=== PATIENT | female | born 1940 | race Caucasian/White ===

== ENCOUNTER 2022-09-19 20:16 | Emergency (ER) | payer MEDICARE, SELFPAY ==
[2022-09-19] VITALS (13 sets, daily range): BP systolic 124–141; BP diastolic 60–108; PULSE 53–70; RESP 12–25; TEMP 36.8; O2SAT 95–98; BMI 27.4
--- NOTE | 2022-09-19 20:20 | ED_ITS ---
HPI - General Adult General Chief complaint: Weakness Stated complaint: WEAKNESS Time Seen by Provider: 09/19/22 20:20 Source: patient and caregiver Mode of arrival: ambulance Limitations: altered mental status Limitations comment: hX OF DEMENTIA History of Present Illness HPI narrative: patient NIA pleasant. Not able to provide much history. Her best description of why she came in via [facility] is because she feels rotten . Denies chest pain or abdominal pain. No fever or headache. Doesn't feel short of breath. States she is ambulatory at the [facility]. State the sensation of feeling rotten started today Related Data Home Medications Medication Instructions Recorded Confirmed cyanocobalamin (vitamin B-12) 1,000 mcg PO DAILY 09/19/22 09/19/22 1,000 mcg capsule donepezil 10 mg tablet 10 mg PO BID 09/19/22 09/19/22 ferrous sulfate 325 mg (65 mg 325 mg PO DAILY 09/19/22 09/19/22 iron) tablet hyoscyamine sulfate 0.125 mg 0.125 mg PO Q4H PRN secretions 09/19/22 09/19/22 tablet (Levsin) ibuprofen 600 mg tablet 600 mg PO BID PRN pain 09/19/22 09/19/22 levetiracetam 500 mg tablet 500 mg PO DAILY 09/19/22 09/19/22 (Keppra) memantine 5 mg tablet 5 mg PO BID 09/19/22 09/19/22 quetiapine 25 mg tablet (Seroquel) 25 mg PO DAILY 09/19/22 09/19/22 sertraline 100 mg tablet (Zoloft) 100 mg PO DAILY 09/19/22 09/19/22 simvastatin 20 mg tablet 20 mg PO DAILY 09/19/22 09/19/22 Allergies Allergy/AdvReac Type Severity Reaction Status Date / Time No Known Drug Allergies Allergy Verified 09/19/22 20:12 Review of Systems ROS Status of ROS 10 or more systems reviewed and unremarkable except as noted in history and below Exam Constitutional Vital Signs - 24 hr 09/19/22 20:12 Temperature 98.2 F Pulse Rate [Monitor] 65 Respiratory Rate 18 Blood Pressure [Right Arm] 140/66 H Pulse Oximetry 97 Oxygen Delivery Method Room Air Common normals: no apparent distress, average body habitus, oriented x3, alert and well nourished [facility] Common normals: normocephalic, head/scalp atraumatic and hearing grossly normal bilaterally Eye Common normals: EOMs intact bilaterally and conjunctivae normal Respiratory Common normals: normal respiratory effort, no retractions and no use of accessory muscles Cardio Common normals: no JVD, regular rate, regular rhythm, S1 normal heart sound and S2 normal heart sound GI Common normals: Normal to inspection, nondistended, normoactive bowel sounds present and non-tender Extremity Common normals: normal to inspection Other: trace edema bilat lower extremities Neuro Common normals: oriented x3, moves all extremities and no focal motor deficits Psych Appearance: grossly normal Course Vital Signs Vital signs: Vital Signs Temperature 98.2 F 09/19/22 20:12 Pulse Rate 65 09/19/22 20:12 Respiratory Rate 18 09/19/22 20:12 Blood Pressure 140/66 H 09/19/22 20:12 Pulse Oximetry 97 09/19/22 20:12 Oxygen Delivery Method Room Air 09/19/22 20:12 Temperature 98.2 F 09/19/22 20:12 Pulse Rate 65 09/19/22 20:12 Respiratory Rate 18 09/19/22 20:12 Blood Pressure 140/66 H 09/19/22 20:12 Pulse Oximetry 97 09/19/22 20:12 Oxygen Delivery Method Room Air 09/19/22 20:12 Medical Decision Making MDM Narrative Medical decision making narrative: patient presents [facility] complaining of feeling rotten. No specifics. Exam neg. workup including Cxray, cardiac enzymes, UA and basic labs unremarkable except mild elevated BUN/creat. Patient hydrated in the department with NS discharged back to [facility] with working diagnosis of dehydration Discharge Plan Discharge Chief Complaint: Weakness Clinical Impression: Acute dehydration Patient Disposition: Home, Self-Care Prescriptions / Home Meds: No Action donepezil 10 mg tablet 10 mg PO BID ferrous sulfate 325 mg (65 mg iron) tablet 325 mg PO DAILY ibuprofen 600 mg tablet 600 mg PO BID PRN (Reason: pain) levetiracetam [Keppra] 500 mg tablet 500 mg PO DAILY memantine 5 mg tablet 5 mg PO BID quetiapine [Seroquel] 25 mg tablet 25 mg PO DAILY sertraline [Zoloft] 100 mg tablet 100 mg PO DAILY simvastatin 20 mg tablet 20 mg PO DAILY cyanocobalamin (vitamin B-12) 1,000 mcg capsule 1,000 mcg PO DAILY hyoscyamine sulfate [Levsin] 0.125 mg tablet 0.125 mg PO Q4H PRN (Reason: secretions) Instructions: Dehydration (ED) Stand Alone Forms: Portal Instructions Referrals: AYE RODRIGUEZ [Primary Care Provider] - 1 week Follow Up Appointments: follow up with the family doctor
--- NOTE | 2022-09-19 20:25 | ECG_ITS ---
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
[2022-09-19 20:43] LABS: Basophils Absolute Auto 0.1 10^3/uL (0.0-0.1); Eosinophils Absolute Auto 0.4 10^3/uL (0.0-0.7); Eosinophils Percent Auto 4.3 % (0.9-7.0); Hematocrit 34.9 % (36.0-48.0); Hemoglobin 11.1 g/dL (12.0-16.0); Immature Granulocytes Abs Auto 0.04 10^3/uL (0.00-0.03); Immature Granulocytes Pct Auto 0.4 % (0.0-0.5); Lymphocytes Absolute Auto 3.6 10^3/uL (1.2-3.8); Lymphocytes Percent Auto 37.6 % (20.5-60.0); Mean Corpuscular HGB Conc 31.8 g/dL (29.9-35.2); Mean Corpuscular Hemoglobin 31.2 pg (26.7-34.0); Mean Platelet Volume 9.2 fL (9.5-13.5); Monocytes Absolute Auto 0.8 10^3/uL (0.3-0.8); Monocytes Percent Auto 8.4 % (1.7-12.0); Neutrophils Absolute Auto 4.6 10^3/uL (1.4-6.5); Neutrophils Percent Auto 48.3 % (43.0-75.0); Platelet Count 256 10^3/uL (150-450); Red Blood Count 3.56 10^6/uL (4.20-5.40); Red Cell Distribution Width 12.7 % (11.0-15.0); White Blood Count 9.6 10^3/uL (4.0-11.0)
--- NOTE | 2022-09-19 20:45 | XR_ITS ---
[address] [address] Patient Name: JARROD CORTEZ MRN: [id number] date: 1940 Sex: F Assigned Patient Location: ER Current Patient Location: ER Accession/Order Number: [id number] Exam Date: 09/19/2022 20:45 Report Date: 09/19/2022 21:18 At the request of: BERT MUJICA Procedure: XR chest 1V EXAMINATION: XR chest 1V HISTORY: Fatigue COMPARISON: Portable chest 07/18/2022 TECHNIQUE: Portable chest FINDINGS: The lung parenchyma is free of consolidation or infiltrate. No pneumothorax or pleural effusion. The cardiac, mediastinal and hilar contours are normal. The visualized osseous structures exhibit no gross abnormality. IMPRESSION: No acute cardiopulmonary abnormality. Electronically authenticated by: RANDALL CHANEY Date: 09/19/2022 21:18
[2022-09-19 21:00] LABS: Anion Gap 10.9; BUN Creatinine Ratio 20.8; Calcium 8.9 mg/dL (8.5-10.1); Carbon Dioxide 27.7 mmol/L (21.0-32.0); Chloride 104 mmol/L (98-107); Estimated GFR (African America 50 (>=60); Estimated GFR (Non-African Ame 41 (>=60); Glucose 101 mg/dL (74-106); Lactate/Lactic Acid 0.6 mmol/L (0.4-2.0); Potassium 4.6 mmol/L (3.5-5.1); Sodium 138 mmol/L (136-145)
[2022-09-19] MEDS: 0.9 % SODIUM CHLORIDE 1,000 ML 999 ML IV (21:14)
[2022-09-19 22:06] LABS: Bilirubin Urine NEGATIVE (NEGATIVE); Blood Urine NEGATIVE (NEGATIVE); Clarity Urine CLEAR (CLEAR); Color Urine YELLOW (YELLOW); Glucose Urine UA NEGATIVE (NEGATIVE); Ketones Urine TRACE mg/dL (NEGATIVE); Leukocyte Esterase Urine SMALL (NEGATIVE); Nitrite Urine NEGATIVE (NEGATIVE); Protein Urine NEGATIVE (NEG/TRACE); Specific Gravity Urine 1.025 (1.005-1.025); Urine Microscopic Indicated YES; Urobilinogen Urine 0.2 EU/dL (0.2-1.0); pH Urine 5.5 (5.0-9.0)
[2022-09-19 22:12] LABS: Bacteria Urine LARGE #/HPF (NONE SEEN); Mucus Urine NONE SEEN (NONE SEEN); RBC Urine 0-2 #/HPF (0-2)
[2022-09-19 22:13] LABS: Cast Seen? NONE SEEN #/LPF (NONE SEEN); Crystals Seen? None Seen #/HPF (None Seen); Squamous Epithelial Cell Urine MODERATE #/LPF (NONE/RARE); Urine Culture Indicated YES
[2022-09-19 22:46] LABS: Magnesium 2.3 mg/dL (1.8-2.4)
== END 2022-09-19 23:31 | disposition home or self-care (01) ==
PROVIDERS: Emergency Provider Internal Medicine; PCP Family Medicine
DX: Z79.899 Other long term (current) drug therapy (principal); E86.0 Dehydration; F03.90 Unspecified dementia, unspecified severity, without behavioral disturbance, psychotic disturbance, mood disturbance, and anxiety
CPT/HCPCS: 36415; 71045; 80048; 81003; 81015; 83605; 83735; 84484; 85025; 87086; 87150; 87186; 93005; 99285

== ENCOUNTER 2022-12-12 19:19 | Emergency (ER) | payer MEDICARE, SELFPAY ==
[2022-12-12] VITALS (18 sets, daily range): BP systolic 102–144; BP diastolic 37–86; PULSE 55–158; RESP 12–26; TEMP 36.4; O2SAT 96–100; BMI 26.5
--- NOTE | 2022-12-12 19:22 | ED_ITS ---
HPI - Syncope General Chief Complaint: Syncope Stated Complaint: SYNCOPE Time Seen by Provider: 12/12/22 19:22 History of Present Illness HPI narrative: A shunt put in via EMS from [facility] assisted living complaint of syncope. Patient was sitting on the side of the bed and she felt weak. They assisted her to get to the bathroom by the time she came back from the bathroom she was so weak she looked like she was not responding. The sternal rubbed her and she responded right away. When EMS arrived the patient's blood pressure was in the 70s systolic started an IV and gave her 500normal saline. The patient has a history of dementia, and seizures. She did not have any seizure activity witnessed she did have bowel incontinence. She is oriented to self. She did not sustain any trauma today. Patient is awake and does not have any complaints. She does not know why she is here she denies any chest pain. She denies any nausea, vomiting, or diarrhea. She has not been sick with a fever. Patient has been here several times this year with the same type of complaints. During her visit from July 18 her thyroid level was were abnormal. Patient does not have any thyroid medicatioon listed. Patient had a full stroke workup done in June she has also been treated for urinary tract infections. Related Data Home Medications Medication Instructions Recorded Confirmed cyanocobalamin (vitamin B-12) 1,000 mcg PO DAILY 09/19/22 12/12/22 1,000 mcg capsule donepezil 10 mg tablet 10 mg PO BID 09/19/22 12/12/22 ferrous sulfate 325 mg (65 mg 325 mg PO DAILY 09/19/22 12/12/22 iron) tablet hyoscyamine sulfate 0.125 mg 0.125 mg PO Q4H PRN secretions 09/19/22 12/12/22 tablet (Levsin) ibuprofen 600 mg tablet 600 mg PO BID PRN pain 09/19/22 12/12/22 levetiracetam 500 mg tablet 500 mg PO Q12H 09/19/22 12/12/22 (Keppra) memantine 5 mg tablet 5 mg PO BID 09/19/22 12/12/22 quetiapine 25 mg tablet (Seroquel) 25 mg PO DAILY 09/19/22 12/12/22 sertraline 100 mg tablet (Zoloft) 100 mg PO DAILY 09/19/22 12/12/22 simvastatin 20 mg tablet 20 mg PO DAILY 09/19/22 12/12/22 Allergies Allergy/AdvReac Type Severity Reaction Status Date / Time No Known Drug Allergies Allergy Verified 09/19/22 20:12 Review of Systems ROS Status of ROS 10 or more systems reviewed and unremarkable except as noted in history and below Exam Narrative Exam Narrative: Nurses notes and vital signs reviewed and patient is not hypoxic. General: Nontoxic, Elderly, frail, chronically ill,and in no apparent distress. Skin: Warm, dry,mild pallor noted. No Rash Head: Normocephalic, atraumatic. Neck: Supple, non-tender. Eye: Pupils are equal, round and EOMI. No scleral icterus. Ears, Nose, Mouth, and Throat: TM clear, no posterior oropharynx erythema or nasal mucosal hypertrophy, uvula is mid-line Oral mucosa is dry Cardiovascular: Regular Rate and Rhythm without murmur, gallop or rub. Respiratory: No accessory muscle use or respiratory distress. Lungs are clear to auscultation, no wheezing, rales or rhonchi Chest Wall: no tenderness Back: No midline thoracic or lumbar vertebral tenderness. No CVA tenderness Musculoskeletal: normal ROM, no calf or popliteal tenderness, no lower extremity edema/swelling GI: Abdomen is soft, non-distended. Normal bowel sounds. No tenderness to palpation. No rebound, guarding, or rigidity noted. Neurological: A&O x1. No cranial nerve dysfunction observed. Moves all extremities. Psychiatric: Cooperative and interactive. Constitutional Vital Signs, click to edit/add: Last Vital Signs Temp 97.6 F 12/12/22 19:21 Pulse 57 L 12/12/22 21:20 Resp 14 12/12/22 21:20 BP 114/66 12/12/22 21:55 Pulse Ox 96 12/12/22 21:20 O2 Del Method Room Air 12/12/22 19:21 Course Vital Signs Vital signs: Vital Signs Temperature 97.6 F 12/12/22 19:21 Pulse Rate 61 12/12/22 19:21 Respiratory Rate 18 12/12/22 19:21 Blood Pressure 144/86 H 12/12/22 19:21 Pulse Oximetry 100 12/12/22 19:21 Oxygen Delivery Method Room Air 12/12/22 19:21 Temperature 97.6 F 12/12/22 19:21 Pulse Rate 57 L 12/12/22 21:20 Respiratory Rate 14 12/12/22 21:20 Blood Pressure 114/66 12/12/22 21:55 Pulse Oximetry 96 12/12/22 21:20 Oxygen Delivery Method Room Air 12/12/22 19:21 MDM - Syncope MDM Narrative Medical decision making narrative: Patient was given normal saline. EKG does not show anything acute. Chest x-ray and brain CT are unremarkable. Lab studies show abnormal thyroid tests. There is no evidence of infection at this time. Urinalysis sent for culture. All results were discussed with family. They will take the patient back. Previous medical records for the patient's the same type of presentation has been reviewed and for part of the medical decision making. Family will discuss with the patient the abnormal thyroid test that the patient has had since June. At this time the patient is without objective evidence of an acute process requiring hospitalization or inpatient management. The patient has remained hemodynamically stable. No additional indication for emergent studies at this time. I answered all questions. Discussed discharge instructions including standard anticipatory guidance and what should prompt a return to the emergency department, including if they get worse are not getting better or develops any new or concerning symptoms. I've given them specific time frame in which to follow-up, and who to follow-up with. The patient demonstrates understanding. Patient is nontoxic and stable for discharge with outpatient follow-up. This note was created with the assistance of a speech recognition program. Although the intention is to generate documents that actually reflects the content of the visit, no guarantees can be provided that every mistake has been identified and corrected by editing. Medical Records Attestation: I reviewed the patient's medical records. Lab Data Attestation: I reviewed the patient's lab results. Labs: Lab Results 12/12/22 12/12/22 12/12/22 Range/Units 19:40 19:43 19:45 WBC 14.9 H (4.0-11.0) 10^3/uL RBC 3.78 L (4.20-5.40) 10^6/uL Hgb 11.5 L (12.0-16.0) g/dL Hct 36.0 (36.0-48.0) % MCV 95.2 (81.0-99.0) fL MCH 30.4 (26.7-34.0) pg MCHC 31.9 (29.9-35.2) g/dL RDW 12.6 (11.0-15.0) % Plt Count 245 (150-450) 10^3/uL MPV 9.0 L (9.5-13.5) fL Neut % (Auto) 71.7 (43.0-75.0) % Lymph % (Auto) 16.3 L (20.5-60.0) % [place] % (Auto) 7.9 (1.7-12.0) % Eos % (Auto) 3.2 (0.9-7.0) % Baso % (Auto) 0.4 (0.2-2.0) % Neut # (Auto) 10.7 H (1.4-6.5) 10^3/uL Lymph # (Auto) 2.4 (1.2-3.8) 10^3/uL [place] # (Auto) 1.2 H (0.3-0.8) 10^3/uL Eos # (Auto) 0.5 (0.0-0.7) 10^3/uL Baso # (Auto) 0.1 (0.0-0.1) 10^3/uL Abs Immat Gran (auto) 0.07 H (0.00-0.03) 10^3/uL Imm/Tot Granulo (auto) 0.5 (0.0-0.5) % PT 10.2 (9.0-11.6) sec INR 0.96 APTT 23.1 (22.3-36.2) sec Sodium 138 (136-145) mmol/L Potassium 4.0 (3.5-5.1) mmol/L Chloride 102 (98-107) mmol/L Carbon Dioxide 26.9 (21.0-32.0) mmol/L Anion Gap 13.1 BUN 23.0 H (7.0-18.0) mg/dL Creatinine 1.19 H (0.55-1.02) mg/dL Est GFR ( Amer) 53 L (>=60) Est GFR (Non-Af Amer) 43 L (>=60) BUN/Creatinine Ratio 19.3 Glucose 111 H (74-106) mg/dL Lactate 0.7 (0.4-2.0) mmol/L Calcium 8.5 (8.5-10.1) mg/dL Magnesium 2.2 (1.8-2.4) mg/dL Total Bilirubin 0.3 (0.2-1.0) mg/dL AST 12 L (15-37) U/L ALT 13 L (14-59) U/L Alkaline Phosphatase 60 (46-116) U/L Troponin I High Sens 6.3 (4.0-51.3) pg/mL Total Protein 6.3 L (6.4-8.2) g/dL Albumin 3.2 L (3.4-5.0) g/dL Globulin 3.1 g/dL Albumin/Globulin Ratio 1.0 TSH 6.736 H (0.358-3.740) uIU/mL Urine Color Yellow (YELLOW) Urine Clarity Clear (CLEAR) Urine pH 5.0 (5.0-9.0) Ur Specific [place] >=1.030 A (1.005-1.025) Urine Protein Trace (NEG/TRACE) mg/dL Urine Glucose (UA) Negative (NEGATIVE) mg/dL Urine Ketones 15 A (NEGATIVE) mg/dL Urine Occult Blood Trace-i (NEGATIVE) Urine Nitrite Negative (NEGATIVE) Urine Bilirubin Small A (NEGATIVE) Urine Urobilinogen 1.0 (0.2-1.0) EU/dL Ur Leukocyte Esterase Negative (NEGATIVE) Urine RBC 2-5 A (0-2) #/HPF Urine WBC 0-2 A (NONE SEEN) #/HPF Ur Squamous Epith Cells Rare (NONE/RARE) #/LPF Urine Crystals None seen (None Seen) #/HPF Urine Bacteria Small A (NONE SEEN) #/HPF Urine Casts Seen A (NONE SEEN) #/LPF Hyaline Casts Few Urine Mucus Trace A (NONE SEEN) Ur Culture Indicated? Yes SARS-CoV-2 (PCR) (NEGATIVE) POC Glucose 113 H (74-106) mg/dL 12/12/22 Range/Units 20:55 WBC (4.0-11.0) 10^3/uL RBC (4.20-5.40) 10^6/uL Hgb (12.0-16.0) g/dL Hct (36.0-48.0) % MCV (81.0-99.0) fL MCH (26.7-34.0) pg MCHC (29.9-35.2) g/dL RDW (11.0-15.0) % Plt Count (150-450) 10^3/uL MPV (9.5-13.5) fL Neut % (Auto) (43.0-75.0) % Lymph % (Auto) (20.5-60.0) % [place] % (Auto) (1.7-12.0) % Eos % (Auto) (0.9-7.0) % Baso % (Auto) (0.2-2.0) % Neut # (Auto) (1.4-6.5) 10^3/uL Lymph # (Auto) (1.2-3.8) 10^3/uL [place] # (Auto) (0.3-0.8) 10^3/uL Eos # (Auto) (0.0-0.7) 10^3/uL Baso # (Auto) (0.0-0.1) 10^3/uL Abs Immat Gran (auto) (0.00-0.03) 10^3/uL Imm/Tot Granulo (auto) (0.0-0.5) % PT (9.0-11.6) sec INR APTT (22.3-36.2) sec Sodium (136-145) mmol/L Potassium (3.5-5.1) mmol/L Chloride (98-107) mmol/L Carbon Dioxide (21.0-32.0) mmol/L Anion Gap BUN (7.0-18.0) mg/dL Creatinine (0.55-1.02) mg/dL Est GFR ( Amer) (>=60) Est GFR (Non-Af Amer) (>=60) BUN/Creatinine Ratio Glucose (74-106) mg/dL Lactate (0.4-2.0) mmol/L Calcium (8.5-10.1) mg/dL Magnesium (1.8-2.4) mg/dL Total Bilirubin (0.2-1.0) mg/dL AST (15-37) U/L ALT (14-59) U/L Alkaline Phosphatase (46-116) U/L Troponin I High Sens (4.0-51.3) pg/mL Total Protein (6.4-8.2) g/dL Albumin (3.4-5.0) g/dL Globulin g/dL Albumin/Globulin Ratio TSH (0.358-3.740) uIU/mL Urine Color (YELLOW) Urine Clarity (CLEAR) Urine pH (5.0-9.0) Ur Specific [place] (1.005-1.025) Urine Protein (NEG/TRACE) mg/dL Urine Glucose (UA) (NEGATIVE) mg/dL Urine Ketones (NEGATIVE) mg/dL Urine Occult Blood (NEGATIVE) Urine Nitrite (NEGATIVE) Urine Bilirubin (NEGATIVE) Urine Urobilinogen (0.2-1.0) EU/dL Ur Leukocyte Esterase (NEGATIVE) Urine RBC (0-2) #/HPF Urine WBC (NONE SEEN) #/HPF Ur Squamous Epith Cells (NONE/RARE) #/LPF Urine Crystals (None Seen) #/HPF Urine Bacteria (NONE SEEN) #/HPF Urine Casts (NONE SEEN) #/LPF Hyaline Casts Urine Mucus (NONE SEEN) Ur Culture Indicated? SARS-CoV-2 (PCR) Negative (NEGATIVE) POC Glucose (74-106) mg/dL ECG Data Attestation: I personally reviewed and interpreted this ECG as follows: Discharge Plan Discharge Chief Complaint: Syncope Clinical Impression: Syncope due to orthostatic hypotension, Acute dehydration, Hypothyroidism Patient Disposition: Home, Self-Care Time of Disposition Decision: 21:24 Condition: Good Mode of Transportation: EMS Prescriptions / Home Meds: No Action donepezil 10 mg tablet 10 mg PO BID ferrous sulfate 325 mg (65 mg iron) tablet 325 mg PO DAILY ibuprofen 600 mg tablet 600 mg PO BID PRN (Reason: pain) levetiracetam [Keppra] 500 mg tablet 500 mg PO Q12H memantine 5 mg tablet 5 mg PO BID quetiapine [Seroquel] 25 mg tablet 25 mg PO DAILY sertraline [Zoloft] 100 mg tablet 100 mg PO DAILY simvastatin 20 mg tablet 20 mg PO DAILY cyanocobalamin (vitamin B-12) 1,000 mcg capsule 1,000 mcg PO DAILY hyoscyamine sulfate [Levsin] 0.125 mg tablet 0.125 mg PO Q4H PRN (Reason: secretions) Instructions: Dehydration (ED), Syncope (ED), Hypothyroidism (ED) Stand Alone Forms: Portal Instructions Referrals: AYE RODRIGUEZ [Primary Care Provider] - 1 week Discharge Date/Time: 12/12/22 22:28
--- NOTE | 2022-12-12 19:23 | ECG_ITS ---
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
--- NOTE | 2022-12-12 19:23 | CT_ITS ---
The [address] [address] Patient Name: JARROD CORTEZ MRN: [id number] date: 1940 Sex: F Assigned Patient Location: ER Current Patient Location: ER Accession/Order Number: [id number] Exam Date: 12/12/2022 19:55 Report Date: 12/12/2022 20:17 At the request of: DONALD RATLIFF Procedure: CT head/brain wo con EXAM: CT head/brain wo con HISTORY: SYNCOPE COMPARISON: CT brain 07/08/2022 TECHNIQUE: Axial CT scans through the head were obtained without IV contrast administration. Dose reduction techniques were achieved by using: automated exposure control and/or adjustment of mA and /or kV according to patient size and/or use of iterative reconstruction technique. FINDINGS: There is no evidence of acute intracranial hemorrhage or abnormal extra-axial fluid collection. No mass effect or midline shift is seen. There is no evidence of large acute territorial infarction. There is no hydrocephalus. Moderate enlargement of the ventricles and sulci, consistent with age appropriate cerebral atrophy. There are atherosclerotic calcifications of bilateral cavernous carotid arteries. To the limit of CT, the posterior fossa appears unremarkable. No definite acute fracture is identified. There is hyperostosis frontalis interna. Soft tissues are unremarkable. The visualized orbits show no abnormal mass. The visualized paranasal sinuses show no air-fluid level. There is sclerosis of the visualized left maxillary sinus, likely reflect chronic sinusitis. Mastoid air cells are clear. CT/CT head/brain wo con IMPRESSION: Stable imaging findings without evidence of acute intracranial abnormality. If there is sufficient clinical concern for acute brain parenchymal pathology, consider MRI for further evaluation. Electronically authenticated by: CAMILA MOE Date: 12/12/2022 20:17
--- NOTE | 2022-12-12 19:23 | XR_ITS ---
The [address] [address] Patient Name: JARROD CORTEZ MRN: [id number] date: 1940 Sex: F Assigned Patient Location: ER Current Patient Location: ER Accession/Order Number: [id number] Exam Date: 12/12/2022 19:52 Report Date: 12/12/2022 20:10 At the request of: DONALD RATLIFF Procedure: XR chest 1V EXAMINATION: XR chest 1V HISTORY: Syncope COMPARISON: Portable chest 09/19/2022 TECHNIQUE: Portable chest FINDINGS: The lung parenchyma is free of consolidation or infiltrate. No pneumothorax or pleural effusion. The cardiac, mediastinal and hilar contours are normal. The visualized osseous structures exhibit no gross abnormality. 9.5 mm body lying within the left glenohumeral joint axillary pouch. Osteophytes are present off the left humeral head and glenoid. Age-related degenerative changes of the acromioclavicular joints bilaterally. XR/XR chest 1V IMPRESSION: No acute cardiopulmonary abnormality. Electronically authenticated by: RANDALL CHANEY Date: 12/12/2022 20:10
[2022-12-12 19:45] LABS: Glucometer 113 mg/dL (74-106)
[2022-12-12] MEDS: 0.9 % SODIUM CHLORIDE 1,000 ML 999 ML IV (19:50)
[2022-12-12 19:53] LABS: Basophils Absolute Auto 0.1 10^3/uL (0.0-0.1); Basophils Percent Auto 0.4 % (0.2-2.0); Eosinophils Absolute Auto 0.5 10^3/uL (0.0-0.7); Eosinophils Percent Auto 3.2 % (0.9-7.0); Hemoglobin 11.5 g/dL (12.0-16.0); Immature Granulocytes Abs Auto 0.07 10^3/uL (0.00-0.03); Immature Granulocytes Pct Auto 0.5 % (0.0-0.5); Lymphocytes Absolute Auto 2.4 10^3/uL (1.2-3.8); Lymphocytes Percent Auto 16.3 % (20.5-60.0); Mean Corpuscular HGB Conc 31.9 g/dL (29.9-35.2); Mean Corpuscular Hemoglobin 30.4 pg (26.7-34.0); Mean Corpuscular Volume 95.2 fL (81.0-99.0); Monocytes Absolute Auto 1.2 10^3/uL (0.3-0.8); Monocytes Percent Auto 7.9 % (1.7-12.0); Neutrophils Absolute Auto 10.7 10^3/uL (1.4-6.5); Neutrophils Percent Auto 71.7 % (43.0-75.0); Platelet Count 245 10^3/uL (150-450); Red Blood Count 3.78 10^6/uL (4.20-5.40); Red Cell Distribution Width 12.6 % (11.0-15.0); White Blood Count 14.9 10^3/uL (4.0-11.0)
[2022-12-12 19:55] LABS: Bilirubin Urine SMALL (NEGATIVE); Blood Urine TRACE-I (NEGATIVE); Clarity Urine CLEAR (CLEAR); Color Urine YELLOW (YELLOW); Glucose Urine UA NEGATIVE (NEGATIVE); Ketones Urine 15 mg/dL (NEGATIVE); Leukocyte Esterase Urine NEGATIVE (NEGATIVE); Nitrite Urine NEGATIVE (NEGATIVE); Protein Urine TRACE mg/dL (NEG/TRACE); Specific Gravity Urine >=1.030 (1.005-1.025)
--- NOTE | 2022-12-12 19:55 | PC.NURSE ---
pt brought in by ems, pt sent over from [facility], pt was found by nursing staff unresponsive in bed, pt sternal rubbed and woke up after. pt was outside in the sun today but unsure how long she was outside. pt doesn't recall what happened. pt on arrival incontinent of bowel or bladder and doesn't remember doing that. pt cleaned up with soap and water and changed out of soiled clothes. pt straight cathed on arrival and urine sample obtained. blood drawn off iv and sent to lab. pt is alert and oriented to self.
[2022-12-12 20:00] LABS: Urine Microscopic Indicated YES
--- NOTE | 2022-12-12 20:04 | PC.NURSE ---
called fabby serna at this time, given report over phone, resident in room and patient was sitting on side of bed and assisted to bathroom and pt states she did not feel well. pt color went pepe and eyes fixed. pt went unresponsive and the resident couldn't find a pulse. resident yelled for help and sternal rubbed pt. pt came too afterwards. nurse states that pt is normally confused and that is her baseline
[2022-12-12 20:12] LABS: INR 0.96; Lactate/Lactic Acid 0.7 mmol/L (0.4-2.0); Partial Thromboplastin Time 23.1 sec (22.3-36.2); Prothrombin Time 10.2 sec (9.0-11.6)
[2022-12-12 20:13] LABS: Alanine Aminotransferase 13 U/L (14-59); Albumin Level 3.2 g/dL (3.4-5.0); Alkaline Phosphatase 60 U/L (46-116); Anion Gap 13.1; Aspartate Amino Transferase 12 U/L (15-37); BUN Creatinine Ratio 19.3; Bilirubin Total 0.3 mg/dL (0.2-1.0); Calcium 8.5 mg/dL (8.5-10.1); Carbon Dioxide 26.9 mmol/L (21.0-32.0); Chloride 102 mmol/L (98-107); Estimated GFR (African America 53 (>=60); Estimated GFR (Non-African Ame 43 (>=60); Globulin 3.1 g/dL; Glucose 111 mg/dL (74-106); Magnesium 2.2 mg/dL (1.8-2.4); Sodium 138 mmol/L (136-145); Total Protein 6.3 g/dL (6.4-8.2); Troponin I High Sensitivity 6.3 pg/mL (4.0-51.3)
[2022-12-12 20:16] LABS: Bacteria Urine SMALL #/HPF (NONE SEEN); Cast Seen? SEEN #/LPF (NONE SEEN); Crystals Seen? None Seen #/HPF (None Seen); Mucus Urine TRACE (NONE SEEN); Squamous Epithelial Cell Urine RARE #/LPF (NONE/RARE); WBC Urine 0-2 #/HPF (NONE SEEN)
[2022-12-12 20:17] LABS: Thyroid Stimulating Hormone 6.736 uIU/mL (0.358-3.740)
[2022-12-12 20:17] LABS: Hyaline Casts Urine FEW; Urine Culture Indicated YES
[2022-12-12 21:16] LABS: SARS-CoV-2 Ag NEGATIVE (NEGATIVE)
[2022-12-13 15:31] LABS: SARS-CoV-2 NAA NOT DETECTED (NOT DETECTE)
--- NOTE | 2022-12-17 09:00 | PC.NURSE ---
12/17/22 0900 call placed to pt contact number no answer called vinod no answer no ability to leave message, faxed pt c+s reviewed by Coreen JUAREZ with no for keflex to facility to update on UTI and need for atb from er visit on 12/12/22. Román Segura RN
== END 2022-12-12 22:28 | disposition home or self-care (01) ==
PROVIDERS: Emergency Provider Emergency Medicine; PCP Family Medicine
DX: I95.1 Orthostatic hypotension (principal); E03.9 Hypothyroidism, unspecified; E86.0 Dehydration; F03.90 Unspecified dementia, unspecified severity, without behavioral disturbance, psychotic disturbance, mood disturbance, and anxiety; Z79.899 Other long term (current) drug therapy; Z20.822 Contact with and (suspected) exposure to COVID-19
CPT/HCPCS: 36415; 70450; 71045; 80053; 81001; 83605; 83735; 84443; 84484; 85025; 85610; 85730; 87086; 87150; 87186; 87635; 87811; 93005; 96360; 99285; U0003

== ENCOUNTER 2023-01-17 19:57 | Emergency (ER) | payer MEDICARE, SELFPAY ==
[2023-01-17 19:57] VITALS: BP 131/67; PULSE 55; RESP 16; TEMP 36.5; O2SAT 100; BMI 22.3
--- NOTE | 2023-01-17 20:05 | XR_ITS ---
The [address] [address] Patient Name: JARROD CORTEZ MRN: [id number] date: 1940 Sex: F Assigned Patient Location: ED.MAIN Current Patient Location: ER Accession/Order Number: [id number] Exam Date: 01/17/2023 21:15 Report Date: 01/17/2023 22:16 At the request of: GEOFFREY ZHOU Procedure: XR chest 1V EXAMINATION: XR chest 1V, , 01/17/2023 9:15 PM EDT INDICATION: Fall HISTORY: Ordering Provider Reason for Exam: Fall Technologist Note: Additional: COMPARISON: None. TECHNIQUE: Chest x-ray: One view. FINDINGS: No pneumothorax, pleural effusion or focal airspace consolidation. Heart is normal in size. Bony thorax is unremarkable. XR/XR chest 1V IMPRESSION: No acute cardiopulmonary process. Electronically authenticated by: TRAE BRADLEY Date: 01/17/2023 22:16
--- NOTE | 2023-01-17 20:05 | XR_ITS ---
The [place] [id number] Patient Name: JARROD CORTEZ MRN: [id number] date: 1940 Sex: F Assigned Patient Location: ED.MAIN Current Patient Location: ER Accession/Order Number: [id number] Exam Date: 01/17/2023 21:15 Report Date: 01/17/2023 22:13 At the request of: GEOFFREY ZHOU Procedure: XR hip RT 2V w/ pelvis EXAM: XR hip RT 2V w/ pelvis HISTORY: Fall COMPARISON: None. TECHNIQUE: Supine view of the pelvis as well as 3 additional views of the right hip FINDINGS: Subtle linear lucency is seen in the intertrochanteric right femur on the frontal view of the right hip, which given history of recent fall may represent a nondisplaced intertrochanteric right femur fracture. Please correlate clinically and obtain CT imaging, as clinically indicated. Joint alignment is normal. Joint spaces are preserved. Soft tissues appear unremarkable. XR/XR hip RT 2V w/ pelvis IMPRESSION: Subtle linear lucency is seen in the intertrochanteric right femur on the frontal view of the right hip, which given history of recent fall may represent a nondisplaced intertrochanteric right femur fracture. Please correlate clinically and obtain CT imaging, as clinically indicated. Electronically authenticated by: TRAE BRADLEY Date: 01/17/2023 22:13
--- NOTE | 2023-01-17 20:05 | ECG_ITS ---
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 Repeat ECG is requested 9150 abnormal ECG Compared to ECG 12/12/2022 19:42:24 Myocardial infarct finding now present Electronically Signed On 01-18-2023 7:11:37 EDT by SHELL BYERS
--- NOTE | 2023-01-17 20:05 | CT_ITS ---
[address] [address] Patient Name: JARROD CORTEZ MRN: [id number] date: 1940 Sex: F Assigned Patient Location: ER Current Patient Location: ER Accession/Order Number: [id number] Exam Date: 01/17/2023 20:57 Report Date: 01/17/2023 21:57 At the request of: GEOFFREY ZHOU Procedure: CT cervical spine wo con CT CERVICAL SPINE WITHOUT CONTRAST HISTORY: Fall. COMPARISON: None available. TECHNIQUE: Helical CT images were performed of the cervical spine without intravenous contrast. Dose reduction techniques were achieved by using automated exposure control and/or adjustment of mA and/or kV according to patient size and/or use of iterative reconstruction technique. 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 MINERALIZATION: Mild osteopenia. CRANIOCERVICAL AND ATLANTOAXIAL ARTICULATIONS: Intact with no traumatic subluxation. VERTEBRAL BODIES: Normal in height with no acute compression fracture. DISC SPACES: Moderate disc space narrowing at C3-C4, C5-C6 and C6-C7 with osteophytic spurring. ALIGNMENT: Grade 1 anterolisthesis at C7-T1, likely degenerative in nature. POSTERIOR ELEMENTS: Intact. ODONTOID PROCESS: Intact. VISUALIZED SKULL BASE: Unremarkable. SPINAL CANAL/NEURAL FORAMEN: Posterior disc osteophyte complex at C3-C4 with moderate canal stenosis, posterior disc osteophyte complex at C4-C5 with mild canal stenosis, posterior disc osteophyte complex at C5-C6 with mild canal stenosis. Severe multilevel bilateral neural foraminal stenosis. UPPER THORAX: Unremarkable. SOFT TISSUES OF THE NECK: Unremarkable. CT/CT cervical spine wo con IMPRESSION: 1. No acute fracture or subluxation. 2. Degenerative changes as described in the body of the report. 3. Osteopenia. Electronically authenticated by: ABE BOSCH Date: 01/17/2023 21:57
--- NOTE | 2023-01-17 20:07 | CT_ITS ---
The [address] [address] Patient Name: JARROD CORTEZ MRN: [id number] date: 1940 Sex: F Assigned Patient Location: ER Current Patient Location: ER Accession/Order Number: [id number] Exam Date: 01/17/2023 20:57 Report Date: 01/17/2023 21:44 At the request of: GEOFFREY ZHOU Procedure: CT head/brain wo con EXAMINATION: CT head/brain wo con, 01/17/2023 8:57 PM EDT HISTORY: Fall COMPARISON: CT head 12/12/2022. TECHNIQUE: CT scan of the head was performed without IV contrast. CT dose reduction technique was used, including Automated Exposure Control. FINDINGS: BRAIN PARENCHYMA/CSF SPACES: Moderately enlarged ventricles and sulci consistent with atrophy. There is no hemorrhage, mass effect or midline shift. There is a small hyperdensity within the left aspect of the midbrain which is stable consistent with a chronic calcification. There is mild low attenuation within the white matter suggestive chronic microvascular ischemia. PARANASAL SINUSES: There is partially visualized sclerotic thickening of left maxillary sinus wall which is stable and suggestive of chronic sinusitis. SKULL BASE AND CALVARIUM: There is normal variant hyperostosis frontalis interna. EXTRACRANIAL SOFT TISSUES: Normal. CT/CT head/brain wo con IMPRESSION: 1. No acute intracranial abnormality. 2. Atrophy and chronic microvascular ischemia. Electronically authenticated by: ABE BOSCH Date: 01/17/2023 21:44
--- NOTE | 2023-01-17 20:10 | ED_ITS ---
Documented by User: ANN Denise 01/17/23 22:39 HPI - Fall General Chief Complaint: Fall Stated Complaint: FALL Time Seen by Provider: 01/17/23 20:05 Source: patient and other Source comment: EMS and intermediate report Mode of arrival: ambulance Limitations: no limitations History of Present Illness HPI Narrative: patient is an 82-year-old female with history of dementia presents to the Emergency Room by EMS from the intermediate where she is a resident for an unwitnessed fall. Patient does not remember falling, she does not know why she fell. Apparently she was complaining of right hip pain. At this time, she has no focal medical complaints and denies any pain. She is not on any blood thinners. long-term was unaware if the patient had a head injury. Related Data Home Medications Medication Instructions Recorded Confirmed cyanocobalamin (vitamin B-12) 1,000 mcg PO DAILY 09/19/22 12/12/22 1,000 mcg capsule donepezil 10 mg tablet 10 mg PO BID 09/19/22 12/12/22 ferrous sulfate 325 mg (65 mg 325 mg PO DAILY 09/19/22 12/12/22 iron) tablet hyoscyamine sulfate 0.125 mg 0.125 mg PO Q4H PRN secretions 09/19/22 12/12/22 tablet (Levsin) ibuprofen 600 mg tablet 600 mg PO BID PRN pain 09/19/22 12/12/22 levetiracetam 500 mg tablet 500 mg PO Q12H 09/19/22 12/12/22 (Keppra) memantine 5 mg tablet 5 mg PO BID 09/19/22 12/12/22 quetiapine 25 mg tablet (Seroquel) 25 mg PO DAILY 09/19/22 12/12/22 sertraline 100 mg tablet (Zoloft) 100 mg PO DAILY 09/19/22 12/12/22 simvastatin 20 mg tablet 20 mg PO DAILY 09/19/22 12/12/22 Allergies Allergy/AdvReac Type Severity Reaction Status Date / Time No Known Drug Allergies Allergy Verified 01/17/23 20:03 Review of Systems ROS Status of ROS unobtainable due to medical condition and unobtainable due to mental status Exam Narrative Exam Narrative: Gen.: Awake, alert, in no distress Head: Normocephalic, atraumatic ENT: Moist mucous membranes; no evidence of head injury, C-spine is nontender Respiratory: No respiratory distress, lungs clear bilaterally Cardio: Regular rate and rhythm Gastrointestinal: Abdomen is soft, nondistended and nontender to palpation Back: no bony tenderness of the T-spine or L-spine, no abrasions or ecchymosis noted over the posterior chest or low back Extremities: Moves extremities equally, no injuries noted; patient sitting with her legs flexed at the hips, no rotation or shortening noted, she is able to actively flex and extend at the knees bilaterally with no bony tenderness of the hips, pelvis is stable Psych: alert and oriented to person Neuro: No focal neuro deficit Skin: Warm, dry, intact Constitutional Vital Signs, click to edit/add: Last Vital Signs Temp 97.7 F 01/17/23 19:57 Pulse 55 L 01/17/23 19:57 Resp 16 01/17/23 19:57 BP 131/67 01/17/23 19:57 Pulse Ox 100 01/17/23 19:57 O2 Del Method Room Air 01/17/23 19:57 Course Vital Signs Vital signs: Vital Signs Temperature 97.7 F 01/17/23 19:57 Pulse Rate 55 L 01/17/23 19:57 Respiratory Rate 16 01/17/23 19:57 Blood Pressure 131/67 01/17/23 19:57 Pulse Oximetry 100 01/17/23 19:57 Oxygen Delivery Method Room Air 01/17/23 19:57 Temperature 97.7 F 01/17/23 19:57 Pulse Rate 55 L 01/17/23 19:57 Respiratory Rate 16 01/17/23 19:57 Blood Pressure 131/67 01/17/23 19:57 Pulse Oximetry 100 01/17/23 19:57 Oxygen Delivery Method Room Air 01/17/23 19:57 MDM - Fall MDM Narrative Medical decision making narrative: 1480: patient had no complaints of pain in the Emergency Room, CTs of the head and C-spine are unremarkable and x-rays of the chest, right hip and pelvis were performed. Lab studies, EKG are also unremarkable. X-rays of the right hip were read by the radiologist as a subtle lucency in the right intertrochanteric area which could possibly represent a nondisplaced fracture. As a result, patient sent for CT of the hip to rule out fracture. Case is turned over to attending physician at this time for disposition after CT of the hip results. Patient is resting comfortably with stable vital signs in the Emergency Room. Medical Records Attestation: I reviewed the patient's medical records. Lab Data Attestation: I reviewed the patient's lab results. Labs: Lab Results 01/17/23 Range/Units 20:16 WBC 10.3 (4.0-11.0) 10^3/uL RBC 3.80 L (4.20-5.40) 10^6/uL Hgb 11.8 L (12.0-16.0) g/dL Hct 36.7 (36.0-48.0) % MCV 96.6 (81.0-99.0) fL MCH 31.1 (26.7-34.0) pg MCHC 32.2 (29.9-35.2) g/dL RDW 12.4 (11.0-15.0) % Plt Count 253 (150-450) 10^3/uL MPV 9.4 L (9.5-13.5) fL Neut % (Auto) 53.5 (43.0-75.0) % Lymph % (Auto) 33.4 (20.5-60.0) % [place] % (Auto) 8.9 (1.7-12.0) % Eos % (Auto) 2.7 (0.9-7.0) % Baso % (Auto) 1.0 (0.2-2.0) % Neut # (Auto) 5.5 (1.4-6.5) 10^3/uL Lymph # (Auto) 3.4 (1.2-3.8) 10^3/uL [place] # (Auto) 0.9 H (0.3-0.8) 10^3/uL Eos # (Auto) 0.3 (0.0-0.7) 10^3/uL Baso # (Auto) 0.1 (0.0-0.1) 10^3/uL Abs Immat Gran (auto) 0.05 H (0.00-0.03) 10^3/uL Imm/Tot Granulo (auto) 0.5 (0.0-0.5) % PT 10.2 (9.0-11.6) sec INR 0.96 Sodium 136 (136-145) mmol/L Potassium 4.6 (3.5-5.1) mmol/L Chloride 105 (98-107) mmol/L Carbon Dioxide 28.9 (21.0-32.0) mmol/L Anion Gap 6.7 BUN 24.0 H (7.0-18.0) mg/dL Creatinine 1.38 H (0.55-1.02) mg/dL Est GFR ( Amer) 44 L (>=60) Est GFR (Non-Af Amer) 37 L (>=60) BUN/Creatinine Ratio 17.4 Glucose 93 (74-106) mg/dL Calcium 8.9 (8.5-10.1) mg/dL Total Bilirubin 0.2 (0.2-1.0) mg/dL AST 13 L (15-37) U/L ALT 13 L (14-59) U/L Alkaline Phosphatase 71 (46-116) U/L Troponin I High Sens 8.5 (4.0-51.3) pg/mL Total Protein 6.4 (6.4-8.2) g/dL Albumin 3.2 L (3.4-5.0) g/dL Globulin 3.2 g/dL Albumin/Globulin Ratio 1.[address] scan - head: Attestation: I have reviewed the pertinent imaging results. Radiologist's impression: Procedure: CT head/brain wo con EXAMINATION: CT head/brain wo con, 01/17/2023 8:57 PM EDT HISTORY: Fall COMPARISON: CT head 12/12/2022. TECHNIQUE: CT scan of the head was performed without IV contrast. CT dose reduction technique was used, including Automated Exposure Control. FINDINGS: BRAIN PARENCHYMA/CSF SPACES: Moderately enlarged ventricles and sulci consistent with atrophy. There is no hemorrhage, mass effect or midline shift. There is a small hyperdensity within the left aspect of the midbrain which is stable consistent with a chronic calcification. There is mild low attenuation within the white matter suggestive chronic microvascular ischemia. PARANASAL SINUSES: There is partially visualized sclerotic thickening of left maxillary sinus wall which is stable and suggestive of chronic sinusitis. SKULL BASE AND CALVARIUM: There is normal variant hyperostosis frontalis interna. EXTRACRANIAL SOFT TISSUES: Normal. IMPRESSION: 1. No acute intracranial abnormality. 2. Atrophy and chronic microvascular ischemia. Electronically authenticated by: ABE BOSCH Date: 01/17/2023 21:44 CT cervical spine: Attestation: I have reviewed the pertinent imaging results. Radiologist's impression: Procedure: CT cervical spine wo con CT CERVICAL SPINE WITHOUT CONTRAST HISTORY: Fall. COMPARISON: None available. TECHNIQUE: Helical CT images were performed of the cervical spine without intravenous contrast. Dose reduction techniques were achieved by using automated exposure control and/or adjustment of mA and/or kV according to patient size and/or use of iterative reconstruction technique. 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 MINERALIZATION: Mild osteopenia. CRANIOCERVICAL AND ATLANTOAXIAL ARTICULATIONS: Intact with no traumatic subluxation. VERTEBRAL BODIES: Normal in height with no acute compression fracture. DISC SPACES: Moderate disc space narrowing at C3-C4, C5-C6 and C6-C7 with osteophytic spurring. ALIGNMENT: Grade 1 anterolisthesis at C7-T1, likely degenerative in nature. POSTERIOR ELEMENTS: Intact. ODONTOID PROCESS: Intact. VISUALIZED SKULL BASE: Unremarkable. SPINAL CANAL/NEURAL FORAMEN: Posterior disc osteophyte complex at C3-C4 with moderate canal stenosis, posterior disc osteophyte complex at C4-C5 with mild canal stenosis, posterior disc osteophyte complex at C5-C6 with mild canal stenosis. Severe multilevel bilateral neural foraminal stenosis. UPPER THORAX: Unremarkable. SOFT TISSUES OF THE NECK: Unremarkable. IMPRESSION: 1. No acute fracture or subluxation. 2. Degenerative changes as described in the body of the report. 3. Osteopenia. Electronically authenticated by: ABE BOSCH Date: 01/17/2023 21:57 Chest x-ray: Attestation: I have reviewed the pertinent imaging results. Radiologist's impression: Procedure: XR chest 1V EXAMINATION: XR chest 1V, , 01/17/2023 9:15 PM EDT INDICATION: Fall HISTORY: Ordering Provider Reason for Exam: Fall Technologist Note: Additional: COMPARISON: None. TECHNIQUE: Chest x-ray: One view. FINDINGS: No pneumothorax, pleural effusion or focal airspace consolidation. Heart is normal in size. Bony thorax is unremarkable. IMPRESSION: No acute cardiopulmonary process. Electronically authenticated by: TRAE BRADLEY Date: 01/17/2023 22:16 XR hip and pelvis: Attestation: I have reviewed the pertinent imaging results. Radiologist's impression: Procedure: XR hip RT 2V w/ pelvis EXAM: XR hip RT 2V w/ pelvis HISTORY: Fall COMPARISON: None. TECHNIQUE: Supine view of the pelvis as well as 3 additional views of the right hip FINDINGS: Subtle linear lucency is seen in the intertrochanteric right femur on the frontal view of the right hip, which given history of recent fall may represent a nondisplaced intertrochanteric right femur fracture. Please correlate clinically and obtain CT imaging, as clinically indicated. Joint alignment is normal. Joint spaces are preserved. Soft tissues appear unremarkable. IMPRESSION: Subtle linear lucency is seen in the intertrochanteric right femur on the frontal view of the right hip, which given history of recent fall may represent a nondisplaced intertrochanteric right femur fracture. Please correlate clinically and obtain CT imaging, as clinically indicated. Electronically authenticated by: TRAE BRADLEY Date: 01/17/2023 22:13 ECG Data Attestation: I personally reviewed and interpreted this ECG as follows: (normal sinus rhythm at a rate of fifty-one, no acute ST elevation or ectopy. EKG reviewed by attending physician) Discharge Plan Discharge Chief Complaint: Fall Clinical Impression: Fall, Contusion of hip Patient Disposition: [facility] Time of Disposition Decision: 23:51 Instructions: Fall Prevention (ED), Hip Contusion (ED) Stand Alone Forms: Portal Instructions Referrals: AYE RODRIGUEZ [Primary Care Provider] - 1 week Documented by User: Arleen Ramesh MD 01/17/23 23:51 HPI - Fall General Chief Complaint: Fall Stated Complaint: FALL Time Seen by Provider: 01/17/23 20:05 Related Data Home Medications Medication Instructions Recorded Confirmed cyanocobalamin (vitamin B-12) 1,000 mcg PO DAILY 09/19/22 12/12/22 1,000 mcg capsule donepezil 10 mg tablet 10 mg PO BID 09/19/22 12/12/22 ferrous sulfate 325 mg (65 mg 325 mg PO DAILY 09/19/22 12/12/22 iron) tablet hyoscyamine sulfate 0.125 mg 0.125 mg PO Q4H PRN secretions 09/19/22 12/12/22 tablet (Levsin) ibuprofen 600 mg tablet 600 mg PO BID PRN pain 09/19/22 12/12/22 levetiracetam 500 mg tablet 500 mg PO Q12H 09/19/22 12/12/22 (Keppra) memantine 5 mg tablet 5 mg PO BID 09/19/22 12/12/22 quetiapine 25 mg tablet (Seroquel) 25 mg PO DAILY 09/19/22 12/12/22 sertraline 100 mg tablet (Zoloft) 100 mg PO DAILY 09/19/22 12/12/22 simvastatin 20 mg tablet 20 mg PO DAILY 09/19/22 12/12/22 Allergies Allergy/AdvReac Type Severity Reaction Status Date / Time No Known Drug Allergies Allergy Verified 01/17/23 20:03 Exam Constitutional Vital Signs, click to edit/add: Last Vital Signs Temp 97.7 F 01/17/23 19:57 Pulse 55 L 01/17/23 19:57 Resp 16 01/17/23 19:57 BP 131/67 01/17/23 19:57 Pulse Ox 100 01/17/23 19:57 O2 Del Method Room Air 01/17/23 19:57 Course Vital Signs Vital signs: Vital Signs Temperature 97.7 F 01/17/23 19:57 Pulse Rate 55 L 01/17/23 19:57 Respiratory Rate 16 01/17/23 19:57 Blood Pressure 131/67 01/17/23 19:57 Pulse Oximetry 100 01/17/23 19:57 Oxygen Delivery Method Room Air 01/17/23 19:57 Temperature 97.7 F 01/17/23 19:57 Pulse Rate 55 L 01/17/23 19:57 Respiratory Rate 16 01/17/23 19:57 Blood Pressure 131/67 01/17/23 19:57 Pulse Oximetry 100 01/17/23 19:57 Oxygen Delivery Method Room Air 01/17/23 19:57 MDM - Fall MDM Narrative Medical decision making narrative: 1698: patient had no complaints of pain in the Emergency Room, CTs of the head and C-spine are unremarkable and x-rays of the chest, right hip and pelvis were performed. Lab studies, EKG are also unremarkable. X-rays of the right hip were read by the radiologist as a subtle lucency in the right intertrochanteric area which could possibly represent a nondisplaced fracture. As a result, patient sent for CT of the hip to rule out fracture. Case is turned over to attending physician at this time for disposition after CT of the hip results. Patient is resting comfortably with stable vital signs in the Emergency Room. This patient was being evaluated and while we are waiting for a CT scan of the right hip, she stood up in the emergency department and was walking in her room. She was gently returned to her chair. CT scan of the right hip is negative for acute fracture or dislocation or other acute findings. At this time she is stable for return to the [facility] where she currently resides. Lab Data Labs: Lab Results 01/17/23 Range/Units 20:16 WBC 10.3 (4.0-11.0) 10^3/uL RBC 3.80 L (4.20-5.40) 10^6/uL Hgb 11.8 L (12.0-16.0) g/dL Hct 36.7 (36.0-48.0) % MCV 96.6 (81.0-99.0) fL MCH 31.1 (26.7-34.0) pg MCHC 32.2 (29.9-35.2) g/dL RDW 12.4 (11.0-15.0) % Plt Count 253 (150-450) 10^3/uL MPV 9.4 L (9.5-13.5) fL Neut % (Auto) 53.5 (43.0-75.0) % Lymph % (Auto) 33.4 (20.5-60.0) % [place] % (Auto) 8.9 (1.7-12.0) % Eos % (Auto) 2.7 (0.9-7.0) % Baso % (Auto) 1.0 (0.2-2.0) % Neut # (Auto) 5.5 (1.4-6.5) 10^3/uL Lymph # (Auto) 3.4 (1.2-3.8) 10^3/uL [place] # (Auto) 0.9 H (0.3-0.8) 10^3/uL Eos # (Auto) 0.3 (0.0-0.7) 10^3/uL Baso # (Auto) 0.1 (0.0-0.1) 10^3/uL Abs Immat Gran (auto) 0.05 H (0.00-0.03) 10^3/uL Imm/Tot Granulo (auto) 0.5 (0.0-0.5) % PT 10.2 (9.0-11.6) sec INR 0.96 Sodium 136 (136-145) mmol/L Potassium 4.6 (3.5-5.1) mmol/L Chloride 105 (98-107) mmol/L Carbon Dioxide 28.9 (21.0-32.0) mmol/L Anion Gap 6.7 BUN 24.0 H (7.0-18.0) mg/dL Creatinine 1.38 H (0.55-1.02) mg/dL Est GFR ( Amer) 44 L (>=60) Est GFR (Non-Af Amer) 37 L (>=60) BUN/Creatinine Ratio 17.4 Glucose 93 (74-106) mg/dL Calcium 8.9 (8.5-10.1) mg/dL Total Bilirubin 0.2 (0.2-1.0) mg/dL AST 13 L (15-37) U/L ALT 13 L (14-59) U/L Alkaline Phosphatase 71 (46-116) U/L Troponin I High Sens 8.5 (4.0-51.3) pg/mL Total Protein 6.4 (6.4-8.2) g/dL Albumin 3.2 L (3.4-5.0) g/dL Globulin 3.2 g/dL Albumin/Globulin Ratio 1.[address] scan - head: Radiologist's impression: Procedure: CT head/brain wo con EXAMINATION: CT head/brain wo con, 01/17/2023 8:57 PM EDT HISTORY: Fall COMPARISON: CT head 12/12/2022. TECHNIQUE: CT scan of the head was performed without IV contrast. CT dose reduction technique was used, including Automated Exposure Control. FINDINGS: BRAIN PARENCHYMA/CSF SPACES: Moderately enlarged ventricles and sulci consistent with atrophy. There is no hemorrhage, mass effect or midline shift. There is a small hyperdensity within the left aspect of the midbrain which is stable consistent with a chronic calcification. There is mild low attenuation within the white matter suggestive chronic microvascular ischemia. PARANASAL SINUSES: There is partially visualized sclerotic thickening of left maxillary sinus wall which is stable and suggestive of chronic sinusitis. SKULL BASE AND CALVARIUM: There is normal variant hyperostosis frontalis interna. EXTRACRANIAL SOFT TISSUES: Normal. IMPRESSION: 1. No acute intracranial abnormality. 2. Atrophy and chronic microvascular ischemia. Electronically authenticated by: ABE BOSCH Date: 01/17/2023 21:44 [place] [id number] CT Scan Report Signed Patient: JARROD CORTEZ MR#: [id number] : 1940 Acct:[id number] Age/Sex: 82 / F ADM Date: 01/17/23 Loc: ER Attending Dr: Ordering Physician: Geoffrey Zhou Date of Service: 01/17/23 Procedure(s): CT hip RT wo con Accession Number(s): [id number] cc: AYE RODRIGUEZ ~ [facility] [place] [id number] Patient Name: JARROD CORTEZ MRN: [id number] date: 1940 Sex: F Assigned Patient Location: ER Current Patient Location: ER Accession/Order Number: [id number] Exam Date: 01/17/2023 22:50 Report Date: 01/17/2023 23:21 At the request of: GEOFFREY ZHOU Procedure: CT hip RT wo con EXAM: CT hip RT wo con HISTORY: Hip pain after fall COMPARISON: X-rays at 9:09 PM TECHNIQUE: Axial CT imaging is performed. Sagittal and coronal reformatted/reconstructed sequencing was additionally performed FINDINGS: No fracture, dislocation, subluxation or osseous lesion. Age-related degenerative changes of the hip joint consistent with joint space narrowing and osteophytes. No visualized joint effusion. 13 mm enthesophyte adjacent to the anterior aspect of the greater trochanter. The pubic symphysis and right sacroiliac joint are unremarkable for patient's age. Moderate to severe facet arthrosis visualized L4-L5 and L5-S1 with a secondary 6 mm degenerative anterolisthesis of L4 and L5. Vacuum disc at L4-L5. Atherosclerosis of the vascular structures. The visualized subcutaneous soft tissues exhibit no edema, hematoma or cyst. Right gluteal post injection granuloma. No gross visualized muscular abnormality. The visualized pelvis exhibits no acute abnormality. IMPRESSION No visualized acute abnormality Discharge Plan Discharge Chief Complaint: Fall Clinical Impression: Fall, Contusion of hip Patient Disposition: [facility] Time of Disposition Decision: 23:51 Instructions: Fall Prevention (ED), Hip Contusion (ED) Stand Alone Forms: Portal Instructions Referrals: AYE RODRIGUEZ [Primary Care Provider] - 1 week
[2023-01-17 20:29] LABS: Basophils Absolute Auto 0.1 10^3/uL (0.0-0.1); Eosinophils Absolute Auto 0.3 10^3/uL (0.0-0.7); Eosinophils Percent Auto 2.7 % (0.9-7.0); Hematocrit 36.7 % (36.0-48.0); Hemoglobin 11.8 g/dL (12.0-16.0); Immature Granulocytes Abs Auto 0.05 10^3/uL (0.00-0.03); Immature Granulocytes Pct Auto 0.5 % (0.0-0.5); Lymphocytes Absolute Auto 3.4 10^3/uL (1.2-3.8); Lymphocytes Percent Auto 33.4 % (20.5-60.0); Mean Corpuscular HGB Conc 32.2 g/dL (29.9-35.2); Mean Corpuscular Hemoglobin 31.1 pg (26.7-34.0); Mean Corpuscular Volume 96.6 fL (81.0-99.0); Mean Platelet Volume 9.4 fL (9.5-13.5); Monocytes Absolute Auto 0.9 10^3/uL (0.3-0.8); Monocytes Percent Auto 8.9 % (1.7-12.0); Neutrophils Absolute Auto 5.5 10^3/uL (1.4-6.5); Neutrophils Percent Auto 53.5 % (43.0-75.0); Platelet Count 253 10^3/uL (150-450); Red Cell Distribution Width 12.4 % (11.0-15.0); White Blood Count 10.3 10^3/uL (4.0-11.0)
[2023-01-17 20:51] LABS: Alanine Aminotransferase 13 U/L (14-59); Albumin Level 3.2 g/dL (3.4-5.0); Alkaline Phosphatase 71 U/L (46-116); Anion Gap 6.7; Aspartate Amino Transferase 13 U/L (15-37); BUN Creatinine Ratio 17.4; Bilirubin Total 0.2 mg/dL (0.2-1.0); Calcium 8.9 mg/dL (8.5-10.1); Carbon Dioxide 28.9 mmol/L (21.0-32.0); Chloride 105 mmol/L (98-107); Estimated GFR (African America 44 (>=60); Estimated GFR (Non-African Ame 37 (>=60); Globulin 3.2 g/dL; Glucose 93 mg/dL (74-106); Potassium 4.6 mmol/L (3.5-5.1); Sodium 136 mmol/L (136-145); Total Protein 6.4 g/dL (6.4-8.2)
[2023-01-17 20:53] LABS: Troponin I High Sensitivity 8.5 pg/mL (4.0-51.3)
[2023-01-17 20:54] LABS: INR 0.96; Prothrombin Time 10.2 sec (9.0-11.6)
--- NOTE | 2023-01-17 22:16 | CT_ITS ---
[address] [address] Patient Name: JARROD CORTEZ MRN: [id number] date: 1940 Sex: F Assigned Patient Location: ER Current Patient Location: ER Accession/Order Number: [id number] Exam Date: 01/17/2023 22:50 Report Date: 01/17/2023 23:21 At the request of: GEOFFREY ZHOU Procedure: CT hip RT wo con EXAM: CT hip RT wo con HISTORY: Hip pain after fall COMPARISON: X-rays at 9:09 PM TECHNIQUE: Axial CT imaging is performed. Sagittal and coronal reformatted/reconstructed sequencing was additionally performed FINDINGS: No fracture, dislocation, subluxation or osseous lesion. Age-related degenerative changes of the hip joint consistent with joint space narrowing and osteophytes. No visualized joint effusion. 13 mm enthesophyte adjacent to the anterior aspect of the greater trochanter. The pubic symphysis and right sacroiliac joint are unremarkable for patient's age. Moderate to severe facet arthrosis visualized L4-L5 and L5-S1 with a secondary 6 mm degenerative anterolisthesis of L4 and L5. Vacuum disc at L4-L5. Atherosclerosis of the vascular structures. The visualized subcutaneous soft tissues exhibit no edema, hematoma or cyst. Right gluteal post injection granuloma. No gross visualized muscular abnormality. The visualized pelvis exhibits no acute abnormality. IMPRESSION No visualized acute abnormality Electronically authenticated by: RANDALL CHANEY Date: 01/17/2023 23:21
[2023-01-18 02:10] VITALS: BP 132/74
== END 2023-01-18 02:12 | disposition home or self-care (01) ==
PROVIDERS: Physician Assistant; Emergency Provider Emergency Medicine; PCP Family Medicine
DX: S70.01XA Contusion of right hip, initial encounter (principal); W19.XXXA Unspecified fall, initial encounter; Z79.899 Other long term (current) drug therapy; F03.90 Unspecified dementia, unspecified severity, without behavioral disturbance, psychotic disturbance, mood disturbance, and anxiety
CPT/HCPCS: 36415; 70450; 71045; 72125; 73502; 73700; 80053; 84484; 85025; 85610; 93005; 99285

== ENCOUNTER 2023-03-17 12:02 | Emergency (ER) | payer MEDICARE, SELFPAY ==
[2023-03-17 12:11] VITALS: BP 136/114; PULSE 98; RESP 18; TEMP 36.9; O2SAT 97
[2023-03-17] MEDS: LIDOCAINE HCL 1% 100 MG/10 ML MDV INJ (12:43)
--- NOTE | 2023-03-17 12:45 | ED.SKABFB1 ---
HPI - Skin/Abscess/Foreign Bdy General Chief complaint: Skin/Abscess/Foreign Body Stated complaint: BUMP ON LEFT SIDE WAISTLINE Time Seen by Provider: 03/17/23 12:05 Source: patient Mode of arrival: walk-in Limitations: no limitations History of Present Illness HPI narrative: 82-year-old female presents for a tender swollen erythematous area at her left lateral waist line area. She's had this for about two weeks. No drainage or injury. Related Data Home Medications Medication Instructions Recorded Confirmed cyanocobalamin (vitamin B-12) 1,000 mcg PO DAILY 09/19/22 12/12/22 1,000 mcg capsule donepezil 10 mg tablet 10 mg PO BID 09/19/22 12/12/22 ferrous sulfate 325 mg (65 mg 325 mg PO DAILY 09/19/22 12/12/22 iron) tablet hyoscyamine sulfate 0.125 mg 0.125 mg PO Q4H PRN secretions 09/19/22 12/12/22 tablet (Levsin) ibuprofen 600 mg tablet 600 mg PO BID PRN pain 09/19/22 12/12/22 levetiracetam 500 mg tablet 500 mg PO Q12H 09/19/22 12/12/22 (Keppra) memantine 5 mg tablet 5 mg PO BID 09/19/22 12/12/22 quetiapine 25 mg tablet (Seroquel) 25 mg PO DAILY 09/19/22 12/12/22 sertraline 100 mg tablet (Zoloft) 100 mg PO DAILY 09/19/22 12/12/22 simvastatin 20 mg tablet 20 mg PO DAILY 09/19/22 12/12/22 Previous Rx's Medication Instructions Recorded cephalexin 500 mg capsule 500 mg PO QID 10 days #40 caps 03/17/23 sulfamethoxazole 800 1 tab PO BID 10 days #20 tabs 03/17/23 mg-trimethoprim 160 mg tablet (Bactrim DS) Allergies Allergy/AdvReac Type Severity Reaction Status Date / Time No Known Drug Allergies Allergy Verified 03/17/23 12:16 Review of Systems ROS Narrative A ten point review of systems is negative except as noted above. Exam Narrative Exam Narrative: Nurses note and vital signs reviewed and patient is not hypoxic. General: The patient appears well and in no apparent distress. Patient is resting comfortably on cart. Skin: Warm, dry, no pallor noted. There is no rash noted. Head: Normocephalic, atraumatic Eye: Normal conjunctiva, no drainage Ears, Nose, Mouth, and Throat: oral mucosa is moist. Nares patent. Cardiovascular: not tachycardic Respiratory: Patient is in no distress, no accessory muscle use, lungs are clear to auscultation, no wheezing, rales or rhonchi Back: non-tender GI: soft and nontender. Left lateral waistline has an erythematous raised fluctuant area approximately three quarters of an inch in diameter. No open areas or drainage. Musculoskeletal: The patient has no evidence of calf tenderness, no pitting edema, symmetrical pulses noted bilaterally Neurological: A&O, normal speech Psychiatric: Cooperative Constitutional Vital Signs, click to edit/add: Last Vital Signs Temp 98.4 F 03/17/23 12:11 Pulse 98 H 03/17/23 12:11 Resp 18 03/17/23 12:11 BP 136/114 H 03/17/23 12:11 Pulse Ox 97 03/17/23 12:11 O2 Del Method Room Air 03/17/23 12:11 Course Vital Signs Vital signs: Vital Signs Temperature 98.4 F 03/17/23 12:11 Pulse Rate 98 H 03/17/23 12:11 Respiratory Rate 18 03/17/23 12:11 Blood Pressure 136/114 H 03/17/23 12:11 Pulse Oximetry 97 03/17/23 12:11 Oxygen Delivery Method Room Air 03/17/23 12:11 Temperature 98.4 F 03/17/23 12:11 Pulse Rate 98 H 03/17/23 12:11 Respiratory Rate 18 03/17/23 12:11 Blood Pressure 136/114 H 03/17/23 12:11 Pulse Oximetry 97 03/17/23 12:11 Oxygen Delivery Method Room Air 03/17/23 12:11 MDM - Skin/Abscess/Foreign Bdy MDM Narrative Medical decision making narrative: the abscess has been drained and she is placed on Bactrim and Keflex. Findings are discussed with the patient. Differential Diagnosis Differential diagnosis: Likely abscess of skin or subcutaneous tissue and other (cellulitis) Discharge Plan Discharge Chief Complaint: Skin/Abscess/Foreign Body Clinical Impression: Abscess Patient Disposition: Home, Self-Care Time of Disposition Decision: 12:44 Condition: Good Mode of Transportation: Private Vehicle Prescriptions / Home Meds: New sulfamethoxazole-trimethoprim [Bactrim DS] 800-160 mg tablet 1 tab PO BID 10 Days Qty: 20 0RF cephalexin 500 mg capsule 500 mg PO QID 10 Days Qty: 40 0RF No Action donepezil 10 mg tablet 10 mg PO BID ferrous sulfate 325 mg (65 mg iron) tablet 325 mg PO DAILY ibuprofen 600 mg tablet 600 mg PO BID PRN (Reason: pain) levetiracetam [Keppra] 500 mg tablet 500 mg PO Q12H memantine 5 mg tablet 5 mg PO BID quetiapine [Seroquel] 25 mg tablet 25 mg PO DAILY sertraline [Zoloft] 100 mg tablet 100 mg PO DAILY simvastatin 20 mg tablet 20 mg PO DAILY cyanocobalamin (vitamin B-12) 1,000 mcg capsule 1,000 mcg PO DAILY hyoscyamine sulfate [Levsin] 0.125 mg tablet 0.125 mg PO Q4H PRN (Reason: secretions) Instructions: Abscess (ED), Abscess Incision and Drainage (DC) Stand Alone Forms: Portal Instructions Referrals: AYE RODRIGUEZ [Primary Care Provider] - 1 week Procedures ED Procedure Instructions Procedures Procedures: the following procedure was performed by me. Local Marisol was carried out with one percent lidocaine without epinephrine resulting in good skin anesthesia. The area was prepped with Betadine ?3 and draped sterilely and using a #11 blade the abscess was incised and drained of a moderate amount of purulent material. No packing is necessary. She tolerated the procedure well.
--- NOTE | 2023-03-17 12:47 | PC.NURSE ---
PT HAS A ROUND RAISED RED ABSCESS TO LEFT SIDE OF BACK AT WAISTLINE. ABSCESS INCISED AND DRAINED THICK EXUDATE, BY DR STEINER. PT TOLERATED PROCEDURE WELL. wOUND COVERED WITH NON ADHERENT DRESSING, GAUZE AND ABD. PAD.
== END 2023-03-17 13:01 | disposition home or self-care (01) ==
PROVIDERS: Emergency Provider Emergency Medicine; PCP Family Medicine
DX: L02.219 Cutaneous abscess of trunk, unspecified (principal)
CPT/HCPCS: 99282

== ENCOUNTER 2023-06-21 20:05 | Emergency (ER) | payer MEDICARE, SELFPAY ==
[2023-06-21 20:08] VITALS: BP 142/54; PULSE 57; RESP 16; TEMP 36.4; O2SAT 96; BMI 28.3
--- NOTE | 2023-06-21 20:18 | ECG_ITS ---
[facility] Test Date: 2023-06-21 Pat Name: JARROD CORTEZ Department: Room: - Gender: Female [employer] Professional: : 1940 Requested By: Dante Coleman Order Number: [id number] Reading MD: SHELL BYERS Measurements Intervals [place] Rate: 54 P: 46 OR: 192 QRS: -15 QRSD: 86 T: 45 QT: 446 QTc: 433 Interpretive Statements 1100 Sinus bradycardia 5211 Minimal voltage criteria for LVH, may be normal variant 9130 borderline ECG Electronically Signed On 06-21-2023 23:18:24 EDT by SHELL BYERS
--- NOTE | 2023-06-21 20:20 | ED_ITS ---
HPI - General Adult General Chief complaint: Weakness Stated complaint: WEAKNESS Time Seen by Provider: 06/21/23 20:15 Source: patient Mode of arrival: ambulance History of Present Illness HPI narrative: Patient sent from half-way where they said that she was not acting right . EMS reported low BP on their arrival but BP on arrival to our ED is normal. Patient is without complaint. She does have dementia. No fever, vomiting, di arrhea, cough/cold symptoms. She denies any chest pain, abdominal pain, headache, blurred vision or other complaints. Related Data Home Medications Medication Instructions Recorded Confirmed cyanocobalamin (vitamin B-12) 1,000 mcg PO DAILY 09/19/22 12/12/22 1,000 mcg capsule donepezil 10 mg tablet 10 mg PO BID 09/19/22 12/12/22 ferrous sulfate 325 mg (65 mg 325 mg PO DAILY 09/19/22 12/12/22 iron) tablet hyoscyamine sulfate 0.125 mg 0.125 mg PO Q4H PRN secretions 09/19/22 12/12/22 tablet (Levsin) ibuprofen 600 mg tablet 600 mg PO BID PRN pain 09/19/22 12/12/22 levetiracetam 500 mg tablet 500 mg PO Q12H 09/19/22 12/12/22 (Keppra) memantine 5 mg tablet 5 mg PO BID 09/19/22 12/12/22 quetiapine 25 mg tablet (Seroquel) 25 mg PO DAILY 09/19/22 12/12/22 sertraline 100 mg tablet (Zoloft) 100 mg PO DAILY 09/19/22 12/12/22 simvastatin 20 mg tablet 20 mg PO DAILY 09/19/22 12/12/22 Previous Rx's Medication Instructions Recorded cephalexin 500 mg capsule 500 mg PO QID 10 days #40 caps 03/17/23 sulfamethoxazole 800 1 tab PO BID 10 days #20 tabs 03/17/23 mg-trimethoprim 160 mg tablet (Bactrim DS) Allergies Allergy/AdvReac Type Severity Reaction Status Date / Time No Known Drug Allergies Allergy Verified 03/17/23 12:16 PFSH PFSH Social History Smoking status: Former smoker Exam Narrative Exam Narrative: Nurses notes and vital signs reviewed and patient is not hypoxic. Afebrile General: Well-appearing and in no apparent distress. Skin: Warm, dry, no pallor noted. No rash. Head: Normocephalic, atraumatic. Neck: Supple, non-tender. No meningismus Eye: Pupils are equal, round and EOMI. No scleral icterus. No nystagmus Ears, Nose, Mouth, and Throat: TM are clear, no posterior oropharynx erythema or nasal mucosal hypertrophy, uvula is mid-line Oral mucosa is moist Cardiovascular: Regular Rate and Rhythm without murmur, gallop or rub. Respiratory: No accessory muscle use or respiratory distress. Lungs are clear to auscultation, no wheezing, rales or rhonchi Back: No midline thoracic or lumbar vertebral tenderness. No CVA tenderness Musculoskeletal: normal ROM, no calf or popliteal tenderness, no lower extremity edema/swelling GI: Abdomen is soft, non-distended. Normal bowel sounds. No tenderness to palpation. No rebound, guarding, or rigidity noted. Neurological: Awake and alert. Disoriented to time or reason for visit. No cranial nerve dysfunction observed. No truncal ataxia. Moves all extremities. Sensation intact. Psychiatric: Cooperative and interactive. Normal mood and affect. Constitutional Vital Signs, click to edit/add: Last Vital Signs Temp 97.6 F 06/21/23 20:08 Pulse 57 L 06/21/23 20:08 Resp 16 06/21/23 20:08 BP 142/54 H 06/21/23 20:08 Pulse Ox 96 06/21/23 20:08 O2 Del Method Room Air 06/21/23 20:08 Course Vital Signs Vital signs: Vital Signs Temperature 97.6 F 06/21/23 20:08 Pulse Rate 57 L 06/21/23 20:08 Respiratory Rate 16 06/21/23 20:08 Blood Pressure 142/54 H 06/21/23 20:08 Pulse Oximetry 96 06/21/23 20:08 Oxygen Delivery Method Room Air 06/21/23 20:08 Temperature 97.6 F 06/21/23 20:08 Pulse Rate 57 L 06/21/23 20:08 Respiratory Rate 16 06/21/23 20:08 Blood Pressure 142/54 H 06/21/23 20:08 Pulse Oximetry 96 06/21/23 20:08 Oxygen Delivery Method Room Air 06/21/23 20:08 Medical Decision Making MDM Narrative Medical decision making narrative: Patient was placed on hall monitor and EKG obtained. Blood drawn and sent for evaluation. Unremarkable CBC. Trace ketones on UA but no sign of acute UTI. Metabolic profile unremarkable with kidney function at patient's baseline and normal electrolytes. No evidence of acute stroke, sepsis, electrolyte imbalance, acute renal injury, UTI or other worrisome findings. Patient has dementia and will be prone to changes in behavior, confusion, weakness and episodes of decreased activity. Lab Data Lab results reviewed: Yes I reviewed the patient's lab results Labs: Lab Results 06/21/23 06/21/23 Range/Units 20:31 20:37 WBC 10.5 (4.0-11.0) 10^3/uL RBC 3.31 L (4.20-5.40) 10^6/uL Hgb 10.4 L (12.0-16.0) g/dL Hct 32.9 L (36.0-48.0) % MCV 99.4 H (81.0-99.0) fL MCH 31.4 (26.7-34.0) pg MCHC 31.6 (29.9-35.2) g/dL RDW 12.6 (11.0-15.0) % Plt Count 210 (150-450) 10^3/uL MPV 9.4 L (9.5-13.5) fL Neut % (Auto) 52.0 (43.0-75.0) % Lymph % (Auto) 35.9 (20.5-60.0) % [place] % (Auto) 9.2 (1.7-12.0) % Eos % (Auto) 1.5 (0.9-7.0) % Baso % (Auto) 0.9 (0.2-2.0) % Neut # (Auto) 5.5 (1.4-6.5) 10^3/uL Lymph # (Auto) 3.8 (1.2-3.8) 10^3/uL [place] # (Auto) 1.0 H (0.3-0.8) 10^3/uL Eos # (Auto) 0.2 (0.0-0.7) 10^3/uL Baso # (Auto) 0.1 (0.0-0.1) 10^3/uL Abs Immat Gran (auto) 0.05 H (0.00-0.03) 10^3/uL Imm/Tot Granulo (auto) 0.5 (0.0-0.5) % Sodium 140 (136-145) mmol/L Potassium 3.8 (3.5-5.1) mmol/L Chloride 103 (98-107) mmol/L Carbon Dioxide 29.8 (21.0-32.0) mmol/L Anion Gap 11.0 BUN 22.0 H (7.0-18.0) mg/dL Creatinine 0.92 (0.55-1.02) mg/dL Est GFR ( Amer) >60 (>=60) Est GFR (Non-Af Amer) 58 L (>=60) BUN/Creatinine Ratio 23.9 Glucose 103 (74-106) mg/dL Calcium 8.7 (8.5-10.1) mg/dL Total Bilirubin 0.3 (0.2-1.0) mg/dL AST 13 L (15-37) U/L ALT 10 L (14-59) U/L Alkaline Phosphatase 57 (46-116) U/L Total Protein 5.9 L (6.4-8.2) g/dL Albumin 2.8 L (3.4-5.0) g/dL Globulin 3.1 g/dL Albumin/Globulin Ratio 0.9 Urine Color Lt. yellow (YELLOW) Urine Clarity Clear (CLEAR) Urine pH 6.0 (5.0-9.0) Ur Specific [place] 1.020 (1.005-1.025) Urine Protein Negative (NEG/TRACE) mg/dL Urine Glucose (UA) Negative (NEGATIVE) mg/dL Urine Ketones Trace A (NEGATIVE) mg/dL Urine Occult Blood Negative (NEGATIVE) Urine Nitrite Negative (NEGATIVE) Urine Bilirubin Negative (NEGATIVE) Urine Urobilinogen 0.2 (0.2-1.0) EU/dL Ur Leukocyte Esterase Negative (NEGATIVE) ECG Data Attestation: I personally reviewed and interpreted this ECG as follows: Interpretation: EKG interpretation: Emergency Department physician interpretation. Normal sinus rhythm at 54bpm. Minimal voltage criteria for LVH. no ST segment elevation or depression. Normal EKG Discharge Plan Discharge Stand Alone Forms: Portal Instructions Chief Complaint: Weakness Clinical Impression: Dementia Patient Disposition: Home, Self-Care Time of Disposition Decision: 21:31 Prescriptions / Home Meds: No Action donepezil 10 mg tablet 10 mg PO BID ferrous sulfate 325 mg (65 mg iron) tablet 325 mg PO DAILY ibuprofen 600 mg tablet 600 mg PO BID PRN (Reason: pain) levetiracetam [Keppra] 500 mg tablet 500 mg PO Q12H memantine 5 mg tablet 5 mg PO BID quetiapine [Seroquel] 25 mg tablet 25 mg PO DAILY sertraline [Zoloft] 100 mg tablet 100 mg PO DAILY simvastatin 20 mg tablet 20 mg PO DAILY cyanocobalamin (vitamin B-12) 1,000 mcg capsule 1,000 mcg PO DAILY hyoscyamine sulfate [Levsin] 0.125 mg tablet 0.125 mg PO Q4H PRN (Reason: secretions) sulfamethoxazole-trimethoprim [Bactrim DS] 800-160 mg tablet 1 tab PO BID 10 Days Qty: 20 0RF cephalexin 500 mg capsule 500 mg PO QID 10 Days Qty: 40 0RF Instructions: Dementia (ED) Referrals: AYE RODRIGUEZ [Primary Care Provider] - 1 week
--- OUTSIDE RECORDS SUMMARY | 2023-06-21 20:25 | XMS_ITS | CCD ---
Author Name Unknown Address [address] [place] [address] Organization [facility] Care Team Providers Care Color Printer Operator Name Role Phone Aye Nevarez Primary Care Provider DARIEN FERRARA Admitting Unavailable NANCY TRUJILLO Referring Unavailable AYE NEVAREZ Primary Care Unavailable HANSEL VERDUGO Consulting Unavailable DARLYN GARCIA Attending Unavailable TONY PARRISH Consulting Unavailable Aye Nevarez DO Primary Care Provider Aye Nevarez DO Primary Care Provider Aye Nevarez DO Primary Care Provider [phone] AYE NEVAREZ Referring Unavailable AYE NEVAREZ Primary Care Unavailable AYE NEVAREZ Primary Care Unavailable CASANDRA CERDA Admitting Unavailable CASANDRA CERDA Attending Unavailable AYE NEVAREZ Referring Unavailable AYE NEVAREZ Primary Care Unavailable WINNIE .ANN Consulting Unavailluciano e PAY ., DR FOY Attending Unavailable ROQUE, DR GRIFFITHS Admitting Unavailable ABE BOSCH Consulting Unavailable CLARE NUNN Consulting Unavailable KEVIN STEINER Admitting Unavailable KEVIN STEINER Attending Unavailable WINNIE ., ANN HALE Consulting Unavailabl e HAY ., DR COLINDRES Consulting Unavailable DAVIN CLAYTON Consulting Unavailable AYE NEVAREZ Referring Unavailable AYE NEVAREZ Primary Care Unavailable Medications Current Medications Medication Drug Class(es) Dates Sig (Normalized) Sig (Original) Acetaminophen (12 sources) Start: 10-19-2020 acetaminophen (TYLENOL) tablet 650 mg Start: 08-04-2020 acetaminophen (TYLENOL) tablet 650 mg take 2 tablets by mo uth every six hours as needed for pain acetaminophen (TYLENOL) 325 MG tablet Take 650 mg by mouth every 6 hours as needed for Pain 0 Active take 1 tablet by ayala th every six hours as needed for pain acetaminophen (TYLENOL) 325 MG tablet Take 325 mg by mouth every 6 hours as needed for Pain 0 Active ascorbic acid 60 mg / beta carotene 5000 unt / copper sulfate 40 mg / dl-alpha tocopheryl acetate 30 unt / sodium selenite 0.04 mg / zinc oxide 40 mg oral tablet (3 sources) Vitamin C take 1 tablet by mouth once daily Multiple Vitamins-Minerals (CENTRUM SILVER) TABS Take 1 tablet by mouth daily 0 Active atorvastatin 20 mg oral tablet (1 source) HMG-CoA Reductase Inhibitor Start: 08-05-19 take 10 mg by mouth once daily 10 mg, Oral, DAILY, First dose on Mon08/04/20 at 2100 Substituted for Simvastatin (ZOCOR). cholecalciferol 0.025 mg oral tablet (11 sources) Vitamin D Start: 10-21-19 take 2000 [IU] by mouth once daily 2,000 Units, Oral, DAILY, First dose on Mon10/20/20 at 0900 take 1 tablet by mouth once coral y Cholecalciferol (VITAMIN D3) 2000 UNITS CAPS Take 1 tablet by mouth daily 0 Active donepezil hydrochloride 5 mg oral tablet (5 sources) Start: 10-19-2020 take 10 mg by mouth twice daily 10 mg, Oral, 2 TIMES DAILY, First dose on Mon10/19/20 at 2300 Start: 08-04-2020 take 10 mg by mouth twice coral y 10 mg, Oral, 2 TIMES DAILY, First dose on Mon08/04/20 at 0900 0.4 ml enoxaparin sodium 100 mg/ml prefilled syringe (2 sources) Low Molecular Weight Heparin Start: 10-20-2020 inject 40 mg by subcutaneous injection once daily 40 mg, Subcutaneous, DAILY, First dose on Mon10/20/20 at 0900 Start: 08-04-2020 enoxaparin (LO VENOX) injection 40 mg Fish Oil-Cholecalciferol (FISH OIL + D3 PO) (10 sources) take 1 tablet by mouth twice daily Fish Oil-Cholecalciferol (FISH OIL + D3 PO) Take 1 tablet by mouth 2 times daily 0 Active levETIRAcetam 500 mg oral tablet (3 sources) Start : 10-19 take 500 mg by mouth twice daily 500 mg, Oral, 2 TIMES DAILY, First dose on Mon10/19/20 at 2300 Do not crush or chew. losartan potassium 50 mg oral tablet (12 sources) Angiotensin 2 Receptor Kim Start : 08-04 take 50 mg by mouth once daily 50 mg, Oral, DAILY, First dose on Mon10/20/20 at 0900 melatonin 12 mg oral tablet (2 sources) Melatonin 12 MG TABS Take by mouth 0 Active Multiple Vitamins-Minerals (CENTRUM SILVER) TABS (7 sources) take 1 tablet by mouth once daily Multiple Vitamins-Minerals (CENTRUM SILVER) TABS Take 1 tablet by mouth daily 0 Active omeprazole 20 mg delayed release oral capsule (10 sources) Proton Pump Inhibitor take 1 capsule by mouth once daily omeprazole (PRILOSEC) 20 MG capsule Take 20 mg by mouth daily 0 Active ondansetron (ZOFRAN-ODT) disintegrating tablet 4 mg (1 source) Start : 10-19 ondansetron (ZOFRAN-ODT) disintegrating tablet 4 mg pantoprazole 40 mg delayed release oral tablet (1 source) Proton Pump Inhibitor Start : 08-04 take 40 mg by mouth once daily before breakfast 40 mg, Oral, DAILY BEFORE BREAKFAST, First dose on Mon08/04/20 at 0700 Do not crush or break. Substituted for Omeprazole (PRILOSEC). polyethylene glycol 3350 02902 mg powder for oral solution (2 sources) Osmotic Laxative Start : 10-19 17 g, Oral, DAILY PRN, Constipation, Starting on Mon10/19/20 at 2231 First line therapy for constipation Start: 08-04-2020 polyethylene g lycol (GLYCOLAX) packet 17 g Promethazine (1 source) Phenothiazine Start: 08-04-2020 promethazine (PHENERGAN) tablet 12.5 mg QUEtiapine 25 mg oral tablet (6 sources) Atypical Antipsychotic Start: 10-19-2020 take 25 mg by mouth once daily 25 mg, Oral, NIGHTLY, First dose on Mon10/19/20 at 2300 Start: 08-05-2020 QUEtiapine (SE ROQUEL) tablet 25 mg Start: 08-05-2020 End: 08-04-2020 take 1 tablet by mouth once daily QUEtiapine (SEROQUEL) 25 MG tablet Take 1 tablet by mouth nightly 60 tablet 3 08/05/2020 Active sertraline 100 mg oral tablet (4 sources) Serotonin Reuptake Inhibitor Start: 10-20-2020 take 100 mg by mouth once daily 100 mg, Oral, DAILY, First dose on Mon10/20/20 at 0900 End: 08-04-2020 take 1 tablet by mouth once daily sertraline (ZOLOFT) 50 MG tablet Take 50 mg by mouth daily 0 08/04/2020 Discontinued (LIST CLEANUP) simvastatin 20 mg oral tablet (10 sources) HMG-CoA Reductase Inhibitor take 1 tablet by mouth once daily simvastatin (ZOCOR) 20 MG tablet Take 20 mg by mouth daily 0 Active 3 ml sodium chloride 9 mg/ml injection (8 sources) Start: 10-20-19 take 1 dose intravenously twice daily 5-40 mL, Intravenous, EVERY 12 HOURS SCHEDULED (2 times per day), First dose on Mon10/19/20 at 2300 For Line Patency: Peripheral IV = 5 mL; Midline or Central Line = 10 mL/lumen. &nbs p;If following IV push medication, administer flush at same rate as the IV push. Flush volume is determined by type of infusion therapy being given. F or non-viscous solutions use: Periphera l IV = 5 mL Midline or Central Line = 10 mL/lumen &nbsp ;For viscous solutions (i.e. blood components, parenteral nutrition, contrast media, or after obtaining blood sample) use: Periphera l IV = 10 mL Midline or Central Line = 20 mL/lumen Start: 10-19-2020 take 10 mL intraveno usly once as needed 10 mL, Intravenous, PRN, Line Care, After every IV line use, Starting on Mon10/19/20 at 2231 Start: 10-19-2020 take 25 mL intraveno usly every hour as needed 25 mL, Intravenous, at 100 mL/hr, PRN, If patient receiving piggyback infusions without ordered maintenance IV fluids or with frequent/long duration piggyback infusions, Starting on Mon10/19/20 at 2231 Administer at the same rate as the piggyback being infused. Start: 10-19-2020 End: 10-20-2020 Intravenous, at 85 mL/hr, CONTINUOUS, Starting on Mon10/19/20 at 2300 Start: 08-04-2020 0.9 % sodium c hloride infusion Start: 08-04-2020 sodium chlorid e flush 0.9 % injection 10 mL therapeutic multivitamin-minerals 1 tablet (1 source) Start: 10-20-2020 therapeutic multivitamin-minerals 1 tablet Completed/Discontinued Medications Medication Drug Class(es) Dates Sig (Normalized) Sig (Original) cefTRIAXone (ROCEPHIN) 1000 mg IVPB in 50 mL D5W minibag (1 source) Start: 10-19-2020 End: 10-19-2020 cefTRIAXone (ROCEPHIN) 1000 mg IVPB in 50 mL D5W minibag gadoteridol (PROHANCE) injection 15 mL (1 source) Start: 08-04-2020 End: 08-04-2020 gadoteridol (PROHANCE) injection 15 mL 1 ml haloperidol 5 mg/ml injection (1 source) Typical Antipsychotic Start: 08-05-2020 End: 08-05-2020 haloperidol lactate (HALDOL) injection 5 mg Start: 08-05-2020 End: 08-05-2020 haloperidol lactate (HALDOL) injection 5 mg 1 ml LORazepam 2 mg/ml injection (3 sources) Benzodiazepine Start: 08-05-2020 End: 08-05-2020 LORazepam (ATIVAN) injection 0.5 mg Start: 08-04-2020 LORazepam (ATI VAN) tablet 0.5 mg Start: 08-04-2020 LORazepam (ATI VAN) injection 2 mg Problems Active Problems Problem Classification Problem Date Documented Da te Episodic/Chronic Delirium dementia and amnestic and other cognitive disorders (2 sources) Senile dementia of the Lewy body type; Translations: [Unspecified dementia without behavioral disturbance] Onset: 07-20-2022 Chronic Epilepsy; convulsions (5 sources) Seizure disorder; Translations: [Epilepsy, unspecified, not intractable, without status epilepticus] Onset: 08-04-2020 Chronic Essential hypertension (5 sources) Essential hypertension; Translations: [Essential (primary) hypertension] Onset: 08-04-2020 Chronic Fluid and electrolyte disorders (5 sources) Mild dehydration; Translations: [Dehydration] Onset: 10-20-2020 Resolved: 11-19-2020 Episodic Genitourinary symptoms and ill-defined conditions (1 source) Personal history of urinary (tract) infections; Translations: [PERS HX URINARY TRACT INFECTIONS] Onset: 07-20-2022 Episodic Malaise and fatigue (1 source) Asthenia; Translations: [Weakness] Episodic Nausea and vomiting (1 source) Nausea with vomiting, unspecified; Translations: [NAUSEA WITH VOMITING UNSPECIFIED] Onset: 07-12-2022 Episodic Other aftercare (1 source) Other medical terminologist (current) drug therapy; Translations: [OTH LONGTERM CURRENT DRUG THERAPY] Onset: 07-20-2022 Episodic Other circulatory disease (4 sources) Hypotension, unspecified; Translations: [HYPOTENSION UNSPECIFIED] Onset: 07-18-2022 Episodic Other connective tissue disease (1 source) Pain in right upper arm; Translations: [Pain of right upper arm] Episodic Other diseases of veins and lymphatics (1 source) Distention of vein; Translations: [Swollen vein] Chronic Other lower respiratory disease (1 source) Shortness of breath; Translations: [SHORTNESS OF BREATH] Onset: 07-12-2022 Episodic Other nervous system disorders (3 sources) Unable to walk; Translations: [Difficulty in walking, not elsewhere classified] Onset: 10-19-2020 Chronic Residual codes; unclassified (3 sources) Transient alteration of awareness; Translations: [TRANSIENT ALTERATION OF AWARENESS] Onset: 07-08-2022 Episodic Residual codes; unclassified (1 source) Altered mental status, unspecified; Translations: [Altered mental status, unspecified] Onset: 05-09-2023 Episodic Thyroid disorders (1 source) Hypothyroidism, unspecified; Translations: [HYPOTHYROIDISM UNSPECIFIED] Onset: 07-20-2022 Chronic Unclassified (1 source) CONTACT W/AND (SUSP) EXPOS COVID-19; Translations: [CONTACT W/AND (SUSP) EXPOS COVID-19] Onset: 07-20-2022 Urinary tract infections (2 sources) Acute cystitis; Translations: [Acute cystitis without hematuria] Onset: 07-12-2022 Episodic Past or Other Problems Problem Classification Problem Date Documented Da te Episodic/Chronic Other circulatory disease (4 sources) Carotid bruit; Translations: [Other specified symptoms and signs involving the circulatory and respiratory systems] Onset: 04-27-2021 Episodic Other screening for suspected conditions (not mental disorders or infectious disease) (4 sources) Raised TSH level; Translations: [Other specified abnormal findings of blood chemistry] Onset: 08-04-2020 Episodic Residual codes; unclassified (7 sources) Altered mental status; Translations: [Altered mental status, unspecified] Onset: 08-03-2020 Episodic Results Test Name Value Interpretation Reference Range Facility URINALYSISon 05-09-2023 Bilirubin Ql (U) Negative Normal NEG [facility] Comment on above: Performed By: #### U A #### [facility] ([id number]) [address] [place] [address] [place] [address] BLOOD/HGB Negative Normal NEG [facility] Comment on above: Performed By: #### U A #### [facility] ([id number]) [address] [place] [address] [place] [address] Color (U) YELLOW Normal YELLOW [facility] Comment on above: Performed By: #### U A #### [facility] ([id number]) [address] [place] [address], [place] [address] Glucose Ql (U) Negative Normal NEG [facility] Comment on above: Performed By: #### U A #### [facility] ([id number]) [address] [place] [address] [place] [address] Ketones Ql (U) Negative Normal NEG [facility] Comment on above: Performed By: #### U A #### [facility] ([id number]) [address] [place] [address], [place] [address] Leukocyte esterase Test strip Ql (U) Negative Normal NEG [facility] Comment on above: Performed By: #### U A #### [facility] ([id number]) [address] [place] [address] [place] [address] Nitrite Ql (U) Negative Normal NEG [facility] Comment on above: Performed By: #### U A #### [facility] ([id number]) [address] [place] [address] pH (U) 6.5 [pH] Normal 5.0-8.5 [facility] Comment on above: Performed By: #### U A #### [facility] ([id number]) [address] [place] [address] Protein Ql (U) Negative Normal NEG [facility] Comment on above: Performed By: #### U A #### [facility] ([id number]) [address] [place] [address] Specific gravity (U) [Rel density] 1.010 Normal 1.003-1.035 [facility] Comment on above: Performed By: #### U A #### [facility] ([id number]) [address] [place] [address] TURBIDITY CLEAR Normal CLEAR [facility] Comment on above: Performed By: #### U A #### [facility] ([id number]) [address] [place] [address] Urinalysis dipstick W Reflex Microscopic panel (U) URINE RECEIVED WITHOUT PRESERVATIVE-DELAYS IN TRANSPORT MAY AFFECT RESULTS.INTERPRET WITH CAUTION AND CLINICAL CORRELATION IS RECOMMENDED. Normal [facility] Comment on above: Performed By: #### U A #### [facility] ([id number]) [address] [place] [address] Urobilinogen Qn (U) 0.2 {Kannan'U}/dL Normal <1.1 [facility] Comment on above: Performed By: #### U A #### [facility] ([id number]) [address] [place] [address] URINE CULTUREon 05-09-2023 Bacteria identified Cx Nom (U) CULTURE RESULTS >100,000 ORGANISMS/mL ENTEROBACTER CLOACAE COMPLEX [ S = SUSCEPTIBLE R = RESISTANT I = INTERMEDIATE S-DO = Susceptible-dose dependent NS = Non-suscceptible NO = No Interpretation ] Organism: ENTEROBACTER CLOACAE COMPLEX Antibiotic Interpretation BETH Status CEFAZOLIN R >=64 F CEFEPIME S <=1 F CEFTRIAXONE S <=1 F CIPROFLOXACIN S <=0.25 F GENTAMICIN S <=1 F LEVOFLOXACIN S <=0.12 F NITROFURANTOIN I 64 F PIPERACIL/TAZOBACTAM S <=4 F TOBRAMYCIN S <=1 F TRIMETH/SULFAMETHOXAZOL E S <=04/28 F Susceptible [facility] Comment on above: Performed By: #### 6 30-4 #### [facility] ([id number]) [address] [place] [address], [address] [place] [address] AMMONIAon 07-18-2022 Ammonia (P) [Mass/Vol] ug/dL Critically low -32 [facility] Comment on above: Performed By: #### H STROPN, TSH, CMP #### [facility] [address] [place] [address] Dr. King Moya CBC AUTO DIFFon 07-18-2022 BASO # 0.1 103/ul Normal 0.0-0.1 [facility] Comment on above: Performed By: #### C BC #### [facility] [address] [place] [address] Dr. King Moya Basophils/100 WBC (Bld) 0.7 % Normal 0.2-2.0 [facility] Comment on above: Performed By: #### C BC #### [facility] [address] [place] [address] Dr. King Moya EO # 0.1 103/ul Normal 0.0-0.7 [facility] Comment on above: Performed By: #### C BC #### [facility] [address] [place] [address] Dr. King Moya Eosinophils/100 WBC (Bld) 1.4 % Normal 0.9-7.0 [facility] Comment on above: Performed By: #### C BC #### [facility] [address] [place] [address] Dr. King Moya Erythrocyte distribution width (RBC) [Ratio] 12.7 % Normal 11.0-15.0 [facility] Comment on above: Performed By: #### C BC #### [facility] [address] [place] [address] Dr. King Moya Hematocrit (Bld) [Volume fraction] 32.5 % Critically low 36.0-48.0 [facility] Comment on above: Performed By: #### C BC #### [facility] [address] [place] [address] Dr. King Moya Hemoglobin (Bld) [Mass/Vol] 10.6 g/dL Critically low 12.0-16.0 [facility] Comment on above: Performed By: #### C BC #### [facility] [address] [place] [address] Dr. King Moya IG # 0.05 10e3/ul Critically high 0.00-0.03 [facility] Comment on above: Performed By: #### C BC #### [facility] [address] [place] [address] Dr. King Moya IG % 0.6 % Critically high 0.0-0.5 [facility] Comment on above: Performed By: #### C BC #### [facility] [address] [place] [address] Dr. King Moya LYMPH # 2.8 103/ul Normal 1.2-3.8 [facility] Comment on above: Performed By: #### C BC #### [facility] [address] [place] [address] Dr. King Moya Lymphocytes/100 WBC (Bld) 31.0 % Normal 20.5-60.0 [facility] Comment on above: Performed By: #### C BC #### [facility] [address] [place] [address] Dr. King Moya MANUAL DIFF REQ NO Normal [facility] Comment on above: Performed By: #### C BC #### [facility] [address] [place] [address] Dr. King Moya MCH (RBC) [Entitic mass] 31.5 pg Normal 26.7-34.0 [facility] Comment on above: Performed By: #### C BC #### [facility] [address] [address] [address] King Moya MCHC (RBC) [Mass/Vol] 32.6 g/dL Normal 29.9-35.2 [facility] Comment on above: Performed By: #### C BC #### [facility] [address] [address] [address] King Moya MCV (RBC) [Entitic vol] 96.4 fL Normal 81.0-99.0 [facility] Comment on above: Performed By: #### C BC #### [facility] [address] [place] [address] Dr. King Moay MONO # 0.8 103/ul Normal 0.3-0.8 [facility] Comment on above: Performed By: #### C BC #### [facility] [address] [place] [address] Dr. King Moya Monocytes/100 WBC (Bld) 9.1 % Normal 1.7-12.0 [facility] Comment on above: Performed By: #### C BC #### [facility] [address] [place] [address] Dr. King Moya NEUT # 5.1 103/ul Normal 1.4-6.5 [facility] Comment on above: Performed By: #### C BC #### [facility] [address] [place] [address] Dr. King Moya Neutrophils/100 WBC (Bld) 57.2 % Normal 43.0-75.0 [facility] Comment on above: Performed By: #### C BC #### [facility] [address] [place] [address] Dr. King Moya Platelet mean volume (Bld) [Entitic vol] 9.2 fL Critically low 9.5-13.5 [facility] Comment on above: Performed By: #### C BC #### [facility] [address] [place] [address] Dr. King Moya PLT 258 103/ul Normal 150-[address] [facility] Comment on above: Performed By: #### C BC #### [facility] [address] [address] [address] King Moya RBC 3.37 106/ul Critically low 4.20-5.40 [facility] Comment on above: Performed By: #### C BC #### [facility] [address] [place], [place] [address] Dr. King Moya WBC 8.9 103/ul Normal 4.0-11.[address] [facility] Comment on above: Performed By: #### C BC #### [facility] [address] [address] [address] King Moya Covid-19 PCR ([facility])on 07-09 SARS-CoV-2 (COVID-19) RNA TEMO+probe Ql (Unsp spec) Not detected Normal NOT DETECTED [facility] Comment on above: Result Comment: When diagnostic testing is negative, the possibility of a false negative should be considered in the context of a patient's recent exposures and the presence of clinical signs and symptoms consistent with SARS-CoV-2. This test is not yet approved or cleared by the [place] FDA. When there are no FDA-approved or cleared tests available, and other criteria are met, FDA can make tests available under an emergency access mechanism called an Emergency Use Authorization (EUA). The EUA for this test is supported by the [employer] of Health and Human Service's declaration that circumstances exist to justify the emergency use of in vitro diagnostics for the detection and/or diagnosis of the virus that causes COVID-19. This EUA will remain in effect for the duration of the COVID-19 declaration justifying emergency of IVDs, unless it is terminated or revoked by the FDA (after which the test may no longer be used). Performed By: #### H STROPN, TSH, CMP #### [facility] [address] [place], [place] [id number] Dr. King Moya ER URINE PROFILEon 3 Bilirubin Ql (U) Negative Normal NEGATIVE [facility] Comment on above: Performed By: #### E RUR #### [facility] [address] [place] [address] Dr. King Moya Clarity (U) CLEAR Normal CLEAR [facility] Comment on above: Performed By: #### E RUR #### [facility] [address] [place] [address] Dr. King Moya Color (U) YELLOW Normal YELLOW [facility] Comment on above: Performed By: #### E RUR #### [facility] [address] [place] [address] Dr. King Moya ERUAHEddie A micrscopic examination will be performed if indicated. Normal [facility] Comment on above: Performed By: #### E RUR #### [facility] [address] [place] [address] Dr. King Moya Glucose Ql (U) Negative Normal NEGATIVE [facility] Comment on above: Performed By: #### E RUR #### [facility] [address] [place] [address] Dr. King Moya Hemoglobin Ql (U) Negative Normal NEGATIVE [facility] Comment on above: Performed By: #### E RUR #### [facility] [address] [place] [address] Dr. King Moya Ketones Ql (U) 40 mg/dl Abnormal NEGATIVE [facility] Comment on above: Performed By: #### E RUR #### [facility] [address] [place] [address] Dr. King Moya LEUKOCYTES Negative Normal NEGATIVE [facility] Comment on above: Performed By: #### E RUR #### [facility] [address] [place] [address] Dr. King Moya Nitrite Ql (U) Negative Normal NEGATIVE [facility] Comment on above: Performed By: #### E RUR #### [facility] [address] [place] [address] Dr. King Moya pH (U) 6.5 [pH] Normal 5-[address] [facility] Comment on above: Performed By: #### E RUR #### [facility] [address] [place] [address] Dr. King Moya SPEC GRAVITY 1.020 Normal 1.005-<=1.02 5 [facility] Comment on above: Performed By: #### E RUR #### [facility] [address] [place] [address] Dr. King Moya UA PROTEIN Negative Normal NEGATIVE/ TRACE [facility] Comment on above: Performed By: #### E RUR #### [facility] [address] [place] [address] Dr. King Moya UR MICRO IND NOT INDICATED Normal [facility] Comment on above: Performed By: #### E RUR #### [facility] [address] [place] [address] Dr. King Moya Urobilinogen Qn (U) 0.2 {Kannan'U}/dL Normal 0.2 - 1. 0 [facility] Comment on above: Performed By: #### E RUR #### [facility] [address] [place] [address] Dr. King Moya FREE T3on 07-18-2022 FREE T3 1.64 pg/mlL Critically low 2.18-3.98 [facility] Comment on above: Performed By: #### H STROPN, TSH, CMP #### [facility] [address] [place] [address] Dr. King Moya FREE T4on 07-18-2022 Free T4 [Mass/Vol] 0.73 ng/dL Critically low 0.76-1.46 [facility] Comment on above: Performed By: #### H STROPN, TSH, CMP #### [facility] [address] [place] [address] Dr. King Moya LACTATE/LACTIC ACIDon 2022 Lactate [Moles/Vol] 1.1 mmol/L Normal 0.4-2.0 [facility] Comment on above: Performed By: #### L ACT #### [facility] [address] [place] [address] Dr. King Moya PROF 14(COMP METB)on 023 Albumin [Mass/Vol] 2.9 g/dL Critically low 3.4-5.[address] [facility] Comment on above: Performed By: #### H STROPN, TSH, CMP #### [facility] [address] [address] [address] King Moya Albumin/Globulin [Mass ratio] 0.9 {ratio} Normal [facility] Comment on above: Performed By: #### H STROPN, TSH, CMP #### [facility] [address] [address] [address] King Moya ALP [Catalytic activity/Vol] 68 U/L Normal 46-116 [facility] Comment on above: Performed By: #### H STROPN, TSH, CMP #### [facility] [address] [address] [address] King Moya ALT [Catalytic activity/Vol] 12 U/L Critically low 14-59 [facility] Comment on above: Performed By: #### H STROPN, TSH, CMP #### [facility] [address] [address] [address] King Moya Anion gap [Moles/Vol] 8.6 mmol/L Normal [facility] Comment on above: Performed By: #### H STROPN, TSH, CMP #### [facility] [address] [address] [address] King Moya AST [Catalytic activity/Vol] 16 U/L Normal 15-37 [facility] Comment on above: Performed By: #### H STROPN, TSH, CMP #### [facility] [address] [address] [address] King Moya Bilirubin [Mass/Vol] 0.1 mg/dL Critically low 0.2-1.0 [facility] Comment on above: Performed By: #### H STROPN, TSH, CMP #### [facility] [address] [address] [address] King Moya Calcium [Mass/Vol] 8.4 mg/dL Critically low 8.5-10.[address] [facility] Comment on above: Performed By: #### H STROPN, TSH, CMP #### [facility] [address] [address] [address] King Moya Chloride [Moles/Vol] 106 mmol/L Normal 98-107 [facility] Comment on above: Performed By: #### H STROPN, TSH, CMP #### [facility] [address] [place] [address] Dr. King Moya CO2 [Moles/Vol] 29.3 mmol/L Normal 21.0-32.0 [facility] Comment on above: Performed By: #### H STROPN, TSH, CMP #### [facility] [address] [place] [address] Dr. King Moya Creatinine [Mass/Vol] 1.19 mg/dL Critically high 0.55-1.02 [facility] Comment on above: Performed By: #### H STROPN, TSH, CMP #### [facility] [address] [place] [address] Dr. King Moya EGFR-AF THAI 53 mL/min/1.73m2 Critically low >=60 [facility] Comment on above: Performed By: #### H STROPN, TSH, CMP #### [facility] [address] [place] [address] Dr. King Moya EGFR-NON AF THAI 43 mL/min/1.73m2 Critically low >=60 [facility] Comment on above: Performed By: #### H STROPN, TSH, CMP #### [facility] [address] [place] [address] Dr. King Moya Globulin (S) [Mass/Vol] 3.1 g/dL Normal [facility] Comment on above: Performed By: #### H STROPN, TSH, CMP #### [facility] [address] [place] [address] Dr. King Moya Glucose [Mass/Vol] 105 mg/dL Normal 74-106 [facility] Comment on above: Performed By: #### H STROPN, TSH, CMP #### [facility] [address] [place] [address] Dr. King Moya Potassium [Moles/Vol] 4.9 mmol/L Normal 3.5-5.1 [facility] Comment on above: Performed By: #### H STROPN, TSH, CMP #### [facility] [address] [address] [address] King Moya Protein [Mass/Vol] 6.0 g/dL Critically low 6.4-8.[address] [facility] Comment on above: Performed By: #### H STROPN, TSH, CMP #### [facility] [address] [address] [address] King Moya Sodium [Moles/Vol] 139 mmol/L Normal 136-145 [facility] Comment on above: Performed By: #### H STROPN, TSH, CMP #### [facility] [address] [address] [address] King Moya Urea nitrogen [Mass/Vol] 19.0 mg/dL Critically high 7.0-18.0 [facility] Comment on above: Performed By: #### H STROPN, TSH, CMP #### [facility] [address] [place] [address] Dr. King Moya Urea nitrogen/Creatinine [Mass ratio] 16.0 mg/mg Normal [facility] Comment on above: Performed By: #### H STROPN, TSH, CMP #### [facility] [address] [place] [address] Dr. King Moya PROTIMEon 07-18-2022 INR Coag (PPP) [Relative time] 0.97 {INR} Normal [facility] Comment on above: Performed By: #### P T, PTT #### [facility] [address] [place] [address] Dr. King Moya INR GUIDELINES SEE BELOW Normal [facility] Comment on above: Result Comment: LORRI RED INR: 2.0 - 3.0 CONDITIONS NOT LISTED BELOW 2.5 - 3.5 FOR PROSTHETIC HEART VALVE REPLACEMENT 2.5 - 3.5 RECURRENT THROMBOSIS Performed By: #### P T, PTT #### [facility] [address] [place] [address] Dr. King Moya PT Coag (PPP) [Time] 10.3 s Normal 9.0-11.6 [facility] Comment on above: Performed By: #### P T, PTT #### [facility] [address] [address] [address] King Moya PTTon 07-18-2022 aPTT Coag (Bld) [Time] 23.2 s Normal 22.3-36.[address] [facility] Comment on above: Performed By: #### P T, PTT #### [facility] [address] [place] [address] Dr. King Moya TROPONIN, HIGH SENSITIVITYon 07-18-2022 HSTROP 8.6 pg/mL Normal 4.0-51.3 [facility] Comment on above: Result Comment: CUT- OFF POINTS HAVE BEEN ESTABLISHED BASED ON THE FOURTH UNIVERSAL DEFINITIONS OF MYOCARDIAL INFARCTION. THE UPPER REFERENCE LIMIT (URL) OF TROPONIN, DEFINED THE 99TH PERCENTILE OF cTnI DISTRIBUTION IN A REFERENCE POPULATION, HAS BEEN CONFIRMED THE DECISION THRESHOLD FOR ME DIAGNOSIS. Performed By: #### H STROPN, TSH, CMP #### [facility] [address] [place] [address] Dr. King Moya TSHon 07-18-2022 TSH 8.354 uIU/mL Critically high 0.358-3.740 [facility] Comment on above: Performed By: #### H STRORODRIGO, TSH, CMP #### [facility] [address] [place] [address] Dr. King Moya XR CHEST 1 Von 07-18-2022 XR CHEST 1 V CHEST X-RAY, 1 VIEW HISTORY: Hypotension. COMPARISON: 07/08/2022. FINDINGS: The cardiac silhouette is normal in size. There are aortic calcifications. The lungs are grossly clear. There are no pleural effusions. There is no pneumothorax. IMPRESSION: No evidence of acute cardiopulmonary disease. Electronically authenticated by: DAVIN CLAYTON Date: 2022-07-18 19:20 Normal [facility] CULTURE URINEon 07-11-2022 CULTURE URINE Isolate 1 Escherichia coli >100,000 cfu/mL of ORGANISM 1 Escherichia coli ANTIBIOTIC M.I.C RX STATUS Ampicillin 8 S F Ampicillin/Sulbactam 4 S F Piperacillin/Tazobactam <=4 S F Cefazolin <=4 S F Ceftazidime <=1 S F Ceftriaxone <=1 S F Ertapenem <=0.5 S F Imipenem <=0.25 S F Amikacin <=2 S F Gentamicin <=1 S F Tobramycin <=1 S F Ciprofloxacin <=0.25 S F Levofloxacin <=0.12 S F Nitrofurantoin <=16 S F Trimethoprim/Sulfametho xazole <=[address] S F [address] [facility] Comment on above: Performed By: #### H STRORODRIGO, TSH, CMP #### [facility] [address] [place] [address] Dr. King Moya ACETONE SERUMon 07-08-2022 ACETONE Negative Normal NEGATIVE [facility] Comment on above: Performed By: #### A CETON #### [facility] [address] [place] [address] Dr. King Moya CBC AUTO DIFFon 07-08-2022 BASO # 0.1 103/ul Normal 0.0-0.1 [facility] Comment on above: Performed By: #### H STRORODRIGO TSH, CMP #### [facility] [address] [place] [address] Dr. King Moya Basophils/100 WBC (Bld) 0.7 % Normal 0.2-2.0 [facility] Comment on above: Performed By: #### H WILMA TSH, CMP #### [facility] [address] [place] [address] Dr. King Moya EO # 0.1 103/ul Normal 0.0-0.7 [facility] Comment on above: Performed By: #### H STRORODRIGO, TSH, CMP #### [facility] [address] [place] [address] Dr. King Moya Eosinophils/100 WBC (Bld) 1.5 % Normal 0.9-7.0 [facility] Comment on above: Performed By: #### H STRORODRIGO TSH, CMP #### [facility] [address] [place] [address] Dr. King Moya Erythrocyte distribution width (RBC) [Ratio] 12.8 % Normal 11.0-15.0 [facility] Comment on above: Performed By: #### H STROPN, TSH, CMP #### [facility] [address] [address] [address] King Moya Hematocrit (Bld) [Volume fraction] 35.5 % Critically low 36.0-48.0 [facility] Comment on above: Performed By: #### H STROPN, TSH, CMP #### [facility] [address] [address] [address] King Moya Hemoglobin (Bld) [Mass/Vol] 11.6 g/dL Critically low 12.0-16.0 [facility] Comment on above: Performed By: #### H STROPN, TSH, CMP #### [facility] [address] [place] [address] Dr. King Moya IG # 0.05 10e3/ul Critically high 0.00-0.03 [facility] Comment on above: Performed By: #### H STROPN, TSH, CMP #### [facility] [address] [place] [address] Dr. King Moya IG % 0.6 % Critically high 0.0-0.5 [facility] Comment on above: Performed By: #### H STROPN, TSH, CMP #### [facility] [address] [address] [address] King Moya LYMPH # 2.8 103/ul Normal 1.2-3.8 [facility] Comment on above: Performed By: #### H STROPN, TSH, CMP #### [facility] [address] [address] [address] King Moya Lymphocytes/100 WBC (Bld) 31.8 % Normal 20.5-60.0 [facility] Comment on above: Performed By: #### H STROPN, TSH, CMP #### [facility] [address] [address] [address] King Moya MANUAL DIFF REQ NO Normal [facility] Comment on above: Performed By: #### H STROPN, TSH, CMP #### [facility] [address] [place] [address] Dr. King Moya MCH (RBC) [Entitic mass] 31.1 pg Normal 26.7-34.0 [facility] Comment on above: Performed By: #### H STROPN, TSH, CMP #### [facility] [address] [address] [address] King Moya MCHC (RBC) [Mass/Vol] 32.7 g/dL Normal 29.9-35.[address] [facility] Comment on above: Performed By: #### H STROPN, TSH, CMP #### [facility] [address] [place] [address] Dr. King Moya MCV (RBC) [Entitic vol] 95.2 fL Normal 81.0-99.[address] [facility] Comment on above: Performed By: #### H STROPN, TSH, CMP #### [facility] [address] [place] [address] Dr. King Moya MONO # 0.7 103/ul Normal 0.3-0.[address] [facility] Comment on above: Performed By: #### H STROPN, TSH, CMP #### [facility] [address] [place] [address] Dr. King Moya Monocytes/100 WBC (Bld) 7.8 % Normal 1.7-12.[address] [facility] Comment on above: Performed By: #### H STROPN, TSH, CMP #### [facility] [address] [place] [address] Dr. King Moya NEUT # 5.1 103/ul Normal 1.4-6.[address] [facility] Comment on above: Performed By: #### H STROPN, TSH, CMP #### [facility] [address] [place] [address] Dr. King Moya Neutrophils/100 WBC (Bld) 57.6 % Normal 43.0-75.[address] [facility] Comment on above: Performed By: #### H STROPN, TSH, CMP #### [facility] [address] [place] [address] Dr. King Moya Platelet mean volume (Bld) [Entitic vol] 9.1 fL Critically low 9.5-13.[address] [facility] Comment on above: Performed By: #### H STROPN, TSH, CMP #### [facility] [address] [place], [place] [address] Dr. King Moya PLT 253 103/ul Normal 150-[address] [facility] Comment on above: Performed By: #### H STROPN, TSH, CMP #### [facility] [address] [address] [address] King Moya RBC 3.73 106/ul Critically low 4.20-5.40 [facility] Comment on above: Performed By: #### H STROPN, TSH, CMP #### [facility] [address] [address] [address] King Moya WBC 8.9 103/ul Normal 4.0-11.[address] [facility] Comment on above: Performed By: #### H STROPN, TSH, CMP #### [facility] [address] [address] [address] STROKE HEAD WOon 07-09-[address] STROKE HEAD WO EXAMINATION: CT STRO KE HEAD WO, 07/08/2022 6:49 PM EDT HISTORY: Altered mental status. COMPARISON: None. TECHNIQUE: CT scan of the head was performed without IV contrast. CT dose reduction technique was used, including Automated Exposure Control. FINDINGS: BRAIN PARENCHYMA/CSF SPACES: Ventricles and sulci appear moderately prominent consistent with atrophy. There is no hemorrhage, mass effect or midline shift. There is diffuse atherosclerotic carotid artery calcification. PARANASAL SINUSES: There is sclerosis in the visualized left maxillary sinus which may be from chronic sinusitis. SKULL BASE AND CALVARIUM: There is normal variant hyperostosis frontalis interna. EXTRACRANIAL SOFT TISSUES: Normal. IMPRESSION: 1. No acute intracranial abnormality. 2. Atrophy and atherosclerotic calcification. Electronically authenticated by: ABE BOSCH Date: 2022-07-08 19:[address] [facility] ER URINE PROFILEon 3 Bilirubin Ql (U) Negative Normal NEGATIVE [facility] Comment on above: Performed By: #### H STROPN, TSH, CMP #### [facility] [address] [address] [address] King Moya Clarity (U) CLEAR Normal CLEAR [facility] Comment on above: Performed By: #### H STROPN, TSH, CMP #### [facility] [address] [address] [address] King Moya Color (U) YELLOW Normal YELLOW [facility] Comment on above: Performed By: #### H STROPN, TSH, CMP #### [facility] [address] [place] [address] Dr. King MELISSA A micrscopic examination will be performed if indicated. Normal [facility] Comment on above: Performed By: #### H STROPN, TSH, CMP #### [facility] [address] [place] [address] Dr. King Moya Glucose Ql (U) Negative Normal NEGATIVE [facility] Comment on above: Performed By: #### H STROPN, TSH, CMP #### [facility] [address] [place] [address] Dr. King Moya Hemoglobin Ql (U) Negative Normal NEGATIVE [facility] Comment on above: Performed By: #### H STROPN, TSH, CMP #### [facility] [address] [place] [address] Dr. King Moya Ketones Ql (U) TRACE Abnormal NEGATIVE [facility] Comment on above: Performed By: #### H STROPN, TSH, CMP #### [facility] [address] [address] [address] King Moya LEUKOCYTES TRACE Abnormal NEGATIVE [facility] Comment on above: Performed By: #### H STROPN, TSH, CMP #### [facility] [address] [place] [address] Dr. King Moya Nitrite Ql (U) Negative Normal NEGATIVE [facility] Comment on above: Performed By: #### H STROPN, TSH, CMP #### [facility] [address] [address] [address] King Moya pH (U) 5.0 [pH] Normal 5-9 [facility] Comment on above: Performed By: #### H STROPN, TSH, CMP #### [facility] [address] [place] [address] Dr. King Moya SPEC GRAVITY >=1.030 Abnormal 1.005-<=1.02 5 [facility] Comment on above: Performed By: #### H STROPN, TSH, CMP #### [facility] [address] [place] [address] Dr. King Moya UA PROTEIN TRACE Normal NEGATIVE/ TRACE [facility] Comment on above: Performed By: #### H STROPN, TSH, CMP #### [facility] [address] [place] [address] Dr. King Moya UR MICRO IND INDICATED Normal [facility] Comment on above: Performed By: #### H STROPN, TSH, CMP #### [facility] [address] [place] [address] Dr. King Moya Urobilinogen Qn (U) 0.2 {Kannan'U}/dL Normal 0.2 - 1. 0 [facility] Comment on above: Performed By: #### H STROPN, TSH, CMP #### [facility] [address] [place] [address] Dr. King Moya LACTATE/LACTIC ACIDon 2022 Lactate [Moles/Vol] 1.1 mmol/L Normal 0.4-2.0 [facility] Comment on above: Performed By: #### L ACT #### [facility] [address] [place] [address] Dr. King Moya PROF 14(COMP METB)on 023 Albumin [Mass/Vol] 3.5 g/dL Normal 3.4-5.0 [facility] Comment on above: Performed By: #### H STROPN, TSH, CMP #### [facility] [address] [place] [address] Dr. King Moya Albumin/Globulin [Mass ratio] 1.2 {ratio} Normal [facility] Comment on above: Performed By: #### H STROPN, TSH, CMP #### [facility] [address] [place] [address] Dr. King Moya ALP [Catalytic activity/Vol] 58 U/L Normal 46-116 [facility] Comment on above: Performed By: #### H STROPN, TSH, CMP #### [facility] [address] [address] [address] King Moya ALT [Catalytic activity/Vol] 14 U/L Normal 14-59 [facility] Comment on above: Performed By: #### H STROPN, TSH, CMP #### [facility] [address] [address] [address] King Moya Anion gap [Moles/Vol] 10.7 mmol/L Normal Th [facility] Comment on above: Performed By: #### H STROPN, TSH, CMP #### [facility] [address] [address] [address] King Moya AST [Catalytic activity/Vol] 11 U/L Critically low 15-37 [facility] Comment on above: Performed By: #### H STROPN, TSH, CMP #### [facility] [address] [address] [address] King Moya Bilirubin [Mass/Vol] 0.2 mg/dL Normal 0.2-1.0 [facility] Comment on above: Performed By: #### H STROPN, TSH, CMP #### [facility] [address] [address] [address] King Moya Calcium [Mass/Vol] 9.2 mg/dL Normal 8.5-10.1 [facility] Comment on above: Performed By: #### H STROPN, TSH, CMP #### [facility] [address] [address] [address] King Moya Chloride [Moles/Vol] 105 mmol/L Normal 98-107 [facility] Comment on above: Performed By: #### H STROPN, TSH, CMP #### [facility] [address] [address] [address] King Moya CO2 [Moles/Vol] 28.7 mmol/L Normal 21.0-32.0 [facility] Comment on above: Performed By: #### H STROPN, TSH, CMP #### [facility] [address] [address] [address] King Moya Creatinine [Mass/Vol] 1.39 mg/dL Critically high 0.55-1.02 [facility] Comment on above: Performed By: #### H STROPN, TSH, CMP #### [facility] [address] [address] [address] King Moya EGFR-AF THAI 44 mL/min/1.73m2 Critically low >=60 [facility] Comment on above: Performed By: #### H STROPN, TSH, CMP #### [facility] [address] [address] [address] King Moya EGFR-NON AF THAI 36 mL/min/1.73m2 Critically low >=60 [facility] Comment on above: Performed By: #### H STROPN, TSH, CMP #### [facility] [address] [place] [address] Dr. King Moya Globulin (S) [Mass/Vol] 2.9 g/dL Normal [facility] Comment on above: Performed By: #### H STROPN, TSH, CMP #### [facility] [address] [place] [address] Dr. King Moya Glucose [Mass/Vol] 119 mg/dL Critically high 74-106 T [facility] Comment on above: Performed By: #### H STROPN, TSH, CMP #### [facility] [address] [place] [address] Dr. King Moya Potassium [Moles/Vol] 4.4 mmol/L Normal 3.5-5.1 [facility] Comment on above: Performed By: #### H STROPN, TSH, CMP #### [facility] [address] [place] [address] Dr. King Moya Protein [Mass/Vol] 6.4 g/dL Normal 6.4-8.2 [facility] Comment on above: Performed By: #### H STROPN, TSH, CMP #### [facility] [address] [place] [address] Dr. King Moya Sodium [Moles/Vol] 140 mmol/L Normal 136-145 [facility] Comment on above: Performed By: #### H STROPN, TSH, CMP #### [facility] [address] [place] [address] Dr. King Moya Urea nitrogen [Mass/Vol] 24.0 mg/dL Critically high 7.0-18.0 [facility] Comment on above: Performed By: #### H WILMA TSH, CMP #### [facility] [address] [address] [address] King Moya Urea nitrogen/Creatinine [Mass ratio] 17.3 mg/mg Normal [facility] Comment on above: Performed By: #### H WILMA TSH, CMP #### [facility] [address] [address] [address] King Moya PROTIMEon 07-08-2022 INR Coag (PPP) [Relative time] 0.97 {INR} Normal [facility] Comment on above: Performed By: #### H ALEKSEY DILLON, CMP #### [facility] [address] [place] [address] Dr. King Moya INR GUIDELINES SEE BELOW Normal [facility] Comment on above: Result Comment: LORRI RED INR: 2.0 - 3.0 CONDITIONS NOT LISTED BELOW 2.5 - 3.5 FOR PROSTHETIC HEART VALVE REPLACEMENT 2.5 - 3.5 RECURRENT THROMBOSIS Performed By: #### H ALEKSEY DILLON, CMP #### [facility] [address] [address] [address] King Moya PT Coag (PPP) [Time] 10.3 s Normal 9.0-11.6 [facility] Comment on above: Performed By: #### H WILMA TSH, CMP #### [facility] [address] [address] [address] King Moya PTTon 07-08-2022 aPTT Coag (Bld) [Time] 24.8 s Normal 22.3-36.[address] [facility] Comment on above: Performed By: #### H WILMA TSH, CMP #### [facility] [address] [place] [address] Dr. King Moya TROPONIN, HIGH SENSITIVITYon 07-08-2022 HSTROP 5.9 pg/mL Normal 4.0-51.3 [facility] Comment on above: Result Comment: CUT- OFF POINTS HAVE BEEN ESTABLISHED BASED ON THE FOURTH UNIVERSAL DEFINITIONS OF MYOCARDIAL INFARCTION. THE UPPER REFERENCE LIMIT (URL) OF TROPONIN, DEFINED THE 99TH PERCENTILE OF cTnI DISTRIBUTION IN A REFERENCE POPULATION, HAS BEEN CONFIRMED THE DECISION THRESHOLD FOR ME DIAGNOSIS. Performed By: #### H STROPN, TSH, CMP #### [facility] [address] [address] [address] King Moya TSHon 07-08-2022 TSH 6.513 uIU/mL Critically high 0.358-3.740 [facility] Comment on above: Performed By: #### H STROPN, TSH, CMP #### [facility] [address] [address] [address] King Moya URINE MICROSCOPIC ONLYon BACTERIA TRACE Abnormal NONE SEEN [facility] Comment on above: Performed By: #### H STROPN, TSH, CMP #### [facility] [address] [place] [address] Dr. King Moya Bacteria identified Cx Nom (U) INDICATED Normal [facility] Comment on above: Performed By: #### H STROPN, TSH, CMP #### [facility] [address] [place] [address] Dr. King Moya CAST SEEN Abnormal NONE SEEN [facility] Comment on above: Performed By: #### H STROPN, TSH, CMP #### [facility] [address] [place] [address] Dr. King Moya Crystals LM Nom (Urine sed) NONE SEEN Normal NONE SEEN [facility] Comment on above: Performed By: #### H STROPN, TSH, CMP #### [facility] [address] [place] [address] Dr. King Moya Epithelial cells LM Ql (Urine sed) RARE Normal NONE SEEN /RARE [facility] Comment on above: Performed By: #### H STROPN, TSH, CMP #### [facility] [address] [place] [address] Dr. King Moya HYALINE CAST RARE Normal [facility] Comment on above: Performed By: #### H STROPN, TSH, CMP #### [facility] [address] [address] [address] King Moya MUCOUS NONE SEEN Normal NONE SEEN [facility] Comment on above: Performed By: #### H STROPN, TSH, CMP #### [facility] [id number] King Moya RBC 0-2 Normal 0-2 [facility] Comment on above: Performed By: #### H LAYLAPN, TSH, CMP #### [facility] [id number] King Moya WBC 5-10 Abnormal NONE SEEN [facility] Comment on above: Performed By: #### H STROPN, TSH, CMP #### [facility] [address] [address] [address] King Moya XR CHEST 1 Von 07-08-2022 XR CHEST 1 V EXAM: XR CHEST 1 V HISTORY: SHORTNESS OF BREATH COMPARISON: None. TECHNIQUE: Single view of the chest FINDINGS: Heart size normal. No focal consolidation, pleural effusion, pulmonary congestion or pneumothorax. IMPRESSION: No acute findings. Electronically authenticated by: CLARE NUNN Date: 2022-07-08 20:[address] [facility] CBC with Auto Differentialon 09-23-2021 Absolute Eos # 0.37 [facility] Absolute Immature Granulocyte 0.05 [facility] Absolute Lymph # 2.[address] [address] Absolute [place]cock # 0.90 [facility] Basophils (Bld) [#/Vol] 0.10 10*3/uL [facility] Basophils/100 WBC (Bld) 1 % 0 - 2 % [facility] Eosinophils/100 WBC (Bld) 4 % 1 - 4 % [facility] Hematocrit (Bld) [Volume fraction] 35.5 % Low 36.3 - 47.1 % [facility] Hemoglobin (Bld) [Mass/Vol] 11.1 g/dL Low 11.9 - 15.1 g/dL [facility] Immature granulocytes/100 WBC (Bld) 1 % High 0 [facility] Interpretation and review of laboratory results Abnormal [facility] Lymphocytes/100 WBC (Bld) 28 % 24 - 43 % [facility] MCH (RBC) [Entitic mass] 31.4 pg 25.2 - 33.5 pg [facility] MCHC (RBC) [Mass/Vol] 31.3 g/dL 28.4 - 34.8 g/dL [facility] MCV (RBC) [Entitic vol] 100.3 fL 82.6 - 102.9 fL [facility] Monocytes/100 WBC (Bld) 9 % 3 - 12 % [facility] NRBC Automated 0.0 0.0 per 100 WBC [facility] Platelet distribution width (Bld) [Ratio] 11.9 % 11.8 - 14.4 % [facility] Platelet mean volume (Bld) [Entitic vol] 9.2 fL 8.1 - 13.5 fL [facility] Platelets (Bld) [#/Vol] 325 10*3/uL [facility] RBC (Bld) [#/Vol] 3.54 10*6/uL Low 3.95 - 5.1 1 m/uL [facility] Segmented neutrophils/100 WBC (Bld) 57 % 36 - 65 % [facility] Segs Absolute 6.06 [facility] WBC (Bld) [#/Vol] 10.4 10*3/uL [facility] CBC with Diffon 09-23-2021 Abs. Basophil 0.10 k/uL Normal 0.00-0.20 [facility] Comment on above: Performed By: #### C DP, CP #### [facility] [address] [place] [address] [place] [address] Change Over: Emerson Hall MD #### LIPR #### [address] [address] Change Over: Kyle Cowan MD Abs.Imm.Granulocyte 0.05 k/uL Normal 0.00-0.30 [facility] Comment on above: Performed By: #### C DP, CP #### [facility] [address] [place] [id number] Change Over: Emerson Hall MD #### LIPR #### [address] [phone] Change Over: Kyle Cowan MD Abs.Neutrophil (Seg) 6.06 k/uL Normal 1.50-8.10 [facility] Comment on above: Performed By: #### C DP, CP #### [address] [place] [phone] Change Over: Emerson Hall MD #### LIPR #### [address] [phone] Change Over: Kyle Cowan MD Basophils/100 WBC (Bld) 1 % Normal 0-2 [facility] Comment on above: Performed By: #### C DP, CP #### [address] [place] [address] Change Over: Emerson Hall MD #### LIPR #### [place] [address] Change Over: Kyle Cowan MD Eosinophils (Bld) [#/Vol] 0.37 10*3/uL Normal 0.00-0.44 [facility] Comment on above: Performed By: #### C DP, CP #### [address] [place] [phone] Change Over: Emerson Hall MD #### LIPR #### [place] [address] Change Over: Kyle Cowan MD Eosinophils/100 WBC (Bld) 4 % Normal 1-4 [facility] Comment on above: Performed By: #### C DP, CP #### [address] [place] [phone] Change Over: Emerson Hall MD #### LIPR #### [address] [phone] Change Over: Kyle Cowan MD Erythrocyte distribution width (RBC) [Ratio] 11.9 % Normal 11.8-14.4 [facility] Comment on above: Performed By: #### C DP, CP #### [facility] [address] [place], [place] [phone] Change Over: Emerson Hall MD #### LIPR #### [address] [id number] Change Over: Kyle Cowan MD Hematocrit (Bld) [Volume fraction] 35.5 % Low 36.3-47.1 [facility] Comment on above: Performed By: #### C DP, CP #### [address] [place] [phone] Change Over: Emerson Hall MD #### LIPR #### [address] [phone] Change Over: Kyle Cowan MD Hemoglobin (Bld) [Mass/Vol] 11.1 g/dL Low 11.9-15.1 [facility] Comment on above: Performed By: #### C DP, CP #### [address] [phone] Change Over: Emerson Hall MD #### LIPR #### [address] [address] Change Over: Kyle Cowan MD Immature granulocytes/100 WBC (Bld) 1 % High 0 [facility] Comment on above: Performed By: #### C DP, CP #### [address] [place], [place] [phone] Change Over: Emerson Hall MD #### LIPR #### [address] [address] Change Over: Kyle Cowan MD Lymphocytes (Bld) [#/Vol] 2.94 10*3/uL Normal 1.10-3.70 [facility] Comment on above: Performed By: #### C DP, CP #### [facility] [address] [place] [address] Dr. [address] [phone] Change Over: Emerson Hall MD #### LIPR #### [address] [id number] Change Over: Kyle Cowan MD Lymphocytes/100 WBC (Bld) 28 % Normal 24-43 [facility] Comment on above: Performed By: #### C DP, CP #### [address] [place] [phone] Change Over: Emerson Hall MD #### LIPR #### [address] [address] Change Over: Kyle Cowan MD MCH (RBC) [Entitic mass] 31.4 pg Normal 25.2-33.5 [facility] Comment on above: Performed By: #### C DP, CP #### [address] [place] [phone] Change Over: Emerson Hall MD #### LIPR #### [address] [address] Change Over: Kyle Cowan MD MCHC (RBC) [Mass/Vol] 31.3 g/dL Normal 28.4-34.8 [facility] Comment on above: Performed By: #### C DP, CP #### [address] [phone] Change Over: Emerson Hall MD #### LIPR #### [address] [address] Change Over: Kyle Cowan MD MCV (RBC) [Entitic vol] 100.3 fL Normal 82.6-102.9 [facility] Comment on above: Performed By: #### C DP, CP #### [address] [place] [address] Change Over: Emerson Hall MD #### LIPR #### [address] [address] Change Over: Kyle Cowan MD Monocytes (Bld) [#/Vol] 0.90 10*3/uL Normal 0.10-1.20 [facility] Comment on above: Performed By: #### C DP, CP #### [address] [place] [phone] ( Change Over: Emerson Hall MD #### LIPR #### [address] [address] Change Over: Kyle Cowan MD Monocytes/100 WBC (Bld) 9 % Normal 3-12 [facility] Comment on above: Performed By: #### C DP, CP #### [address] [place], [place] [phone] Change Over: Emerson Hall MD #### LIPR #### [address] [address] Change Over: Kyle Cowan MD Neutrophil (Seg) 57 % Normal 36-65 [facility] Comment on above: Performed By: #### C DP, CP #### [address] [address] Change Over: Emerson Hall MD #### LIPR #### [address] [address] Change Over: Kyle Cowan MD NRBC Automated 0.0 per 100 WBC Normal 0.0 [facility] Comment on above: Performed By: #### C DP, CP #### [facility] [address] [place], [place] [phone] Change Over: Emerson Hall MD #### LIPR #### [address] [place], [place] [phone] Change Over: Kyle Cowan MD Platelet mean volume (Bld) [Entitic vol] 9.2 fL Normal 8.1-13.5 [facility] Comment on above: Performed By: #### C DP, CP #### [facility] [address] [place], [place] [phone] Change Over: Emerson Hall MD #### LIPR #### [address] [phone] Change Over: Kyle Cowan MD Platelets (Bld) [#/Vol] 325 10*3/uL Normal 138-453 [facility] Comment on above: Performed By: #### C DP, CP #### [facility] [address] [place], [place] [phone] Change Over: Emerson Hall MD #### LIPR #### [address] [address] Change Over: Kyle Cowan MD RBC (Bld) [#/Vol] 3.54 10*6/uL Low 3.95-5.11 [facility] Comment on above: Performed By: #### C DP, CP #### [facility] [address] [place], [place] [phone] Change Over: Emerson Hall MD #### LIPR #### [address] [place] [address] Change Over: Kyle Cowan MD WBC (Bld) [#/Vol] 10.4 10*3/uL Normal 3.5-11.3 [facility] Comment on above: Performed By: #### C DP, CP #### [facility] [address] [place], [place] [phone] Change Over: Emerson Hall MD #### LIPR #### [facility] [address] [place], [place] [phone] Change Over: Kyle Cowan MD Comp Metabolic Profon 2021 (cont.) Normal [facility] Comment on above: Result Comment: Aver age GFR for 70 or more years old: 75 mL/min/1.73sq m Chronic Kidney Disease: <60 mL/min/1.73sq m Kidney failure: <15 mL/min/1.73sq m eGFR calculated using average adult body mass. Additional eGFR calculator available at: http://www.[employer]/multiple_crcl_2012.htm Performed By: #### B C #### [facility] [address] [place] [address] Dr. [place], [place] [phone] Change Over: Emerson Hall MD Albumin [Mass/Vol] 3.8 g/dL Normal 3.5-5.2 [facility] Comment on above: Performed By: #### B C #### [facility] [address] [place] [address] Dr. [place], [place] [phone] Change Over: Emerson Hall MD Albumin/Glob Ratio 1.4 Normal 1.0-2.5 [facility] Comment on above: Performed By: #### B C #### [facility] [address] [place], [place] 1224583 Change Over: Emerson Hall MD Alkaline Phos 69 U/L Normal 35-104 [facility] Comment on above: Performed By: #### B C #### [facility] [address] [place], [place] [phone] Change Over: Emerson Hall MD ALT [Catalytic activity/Vol] 6 U/L Normal 5-33 [facility] Comment on above: Performed By: #### B C #### [facility] [address] [place], [place] [phone] Change Over: Emerson Hall MD Anion gap [Moles/Vol] 6 mmol/L Low 9-17 [facility] Comment on above: Performed By: #### B C #### [facility] [address] [place], [place] 8472883 Change Over: Emerson Hall MD AST [Catalytic activity/Vol] 12 U/L Normal <32 [facility] Comment on above: Performed By: #### B C #### [facility] [address] [place], [place] [phone] Change Over: Emerson Hall MD Bilirubin [Mass/Vol] 0.27 mg/dL Low 0.3-1.2 [facility] Comment on above: Performed By: #### B C #### [facility] [address] [place], [place] [phone] Change Over: Emerson Hall MD BUN/CRE Ratio 26 High 9-20 [facility] Comment on above: Performed By: #### B C #### [facility] [address] [place], [place] [phone] Change Over: Emerson Hall MD Calcium [Mass/Vol] 9.2 mg/dL Normal 8.6-10.4 [facility] Comment on above: Performed By: #### B C #### [facility] [address] [place], [place] 8682983 Change Over: Emerson Hall MD Chloride [Moles/Vol] 106 mmol/L Normal 98-107 [facility] Comment on above: Performed By: #### B C #### [facility] [address] [place], [place] [phone] Change Over: Emerson Hall MD CO2 [Moles/Vol] 29 mmol/L Normal 20-31 [facility] Comment on above: Performed By: #### B C #### [facility] [address] [place], [place] 1917983 Change Over: Emerson Hall MD Creatinine [Mass/Vol] 0.73 mg/dL Normal 0.50-0.90 [facility] Comment on above: Performed By: #### B C #### [facility] [address] [place], [place] 9973683 Change Over: Emerson Hall MD GFR, Amer >60 Normal >60 [facility] Comment on above: Performed By: #### B C #### [facility] [address] [place], [place] [phone] Change Over: Emerson Hall MD GFR,non Amer >60 Normal >60 [facility] Comment on above: Performed By: #### B C #### [facility] [address] [place], [place] 2792783 Change Over: Emerson Hall MD Glucose [Mass/Vol] 92 mg/dL Normal 70-99 [facility] Comment on above: Performed By: #### B C #### [facility] [address] [place], [place] 7772883 Change Over: Emerson Hall MD Potassium [Moles/Vol] 5.1 mmol/L Normal 3.7-5.3 [facility] Comment on above: Performed By: #### B C #### [facility] [address] [place], [place] 6996383 Change Over: Emerson Hall MD Protein [Mass/Vol] 6.5 g/dL Normal 6.4-8.3 [facility] Comment on above: Performed By: #### B C #### [facility] [address] [place], [place] [phone] Change Over: Emerson Hall MD Sodium [Moles/Vol] 141 mmol/L Normal 135-144 [facility] Comment on above: Performed By: #### B C #### [facility] [address] [place] [address] Change Over: Emerson Hall MD Staging: Normal [facility] Comment on above: Result Comment: Stag e 1: Some kidney damage normal GFR Stage 2: Mild kidney damage GFR 60-89 Stage 3: Moderate kidney damage GFR 30-59 Stage 4: Severe kidney damage GFR 15-29 Stage 5: Severe kidney damage GFR <15 ESRD - chronic treatment by dialysis or transplant Performed By: #### B C #### [facility] [address] [place] [address] Change Over: Emerson Hall MD Urea nitrogen [Mass/Vol] 19 mg/dL Normal 8-23 [facility] Comment on above: Performed By: #### B C #### [facility] [address] [place] [address] Change Over: Emerson Hall MD [facility] Metabolic Pane [facility] 09-23-2021 Albumin [Mass/Vol] 3.8 g/dL 3.5 - 5.2 g/dL [facility] Albumin/Globulin [Mass ratio] 1.4 {ratio} [facility] ALP (Bld) [Catalytic activity/Vol] 69 U/L 35 - 104 U/L [facility] ALT [Catalytic activity/Vol] 6 U/L 5 - 33 U/L [facility] Anion gap [Moles/Vol] 6 mmol/L Low 9 - 17 mmol/L [facility] AST [Catalytic activity/Vol] 12 U/L <32 [facility] Bilirubin [Mass/Vol] 0.27 mg/dL Low 0.3 - 1 .2 mg/dL [facility] Calcium [Mass/Vol] 9.2 mg/dL 8.6 - 10. 4 mg/dL [facility] Chloride [Moles/Vol] 106 mmol/L 98 - 10 7 mmol/L [facility] CO2 [Moles/Vol] 29 mmol/L 20 - 31 mmol/L [facility] Creatinine [Mass/Vol] 0.73 mg/dL 0.50 - 0.90 mg/dL [facility] Free PSA/Total PSA [Mass fraction] 6.5 g/dL 6.4 - 8.3 g/dL [facility] GFR >60 >60 mL/min [facility] GFR Non- >60 >60 mL/min [facility] Glucose [Mass/Vol] 92 mg/dL 70 - 99 mg/dL [facility] Interpretation and review of laboratory results Abnormal [facility] Potassium [Moles/Vol] 5.1 mmol/L 3.7 - 5.3 mmol/L [facility] Sodium [Moles/Vol] 141 mmol/L 135 - 144 mmol/L [facility] Urea nitrogen (BldV) [Mass/Vol] 19 mg/dL 8 - 23 mg/dL [facility] Urea nitrogen/Creatinine (Bld) [Mass ratio] 26 High [facility] Laboratory - Chemistry and C hemistry - challengeon 09-23-2021 GFR/1.73 sq M.predicted MDRD (S/P/Bld) [Vol rate/Area] [facility] Comment on above: Average GFR for 70 o r more years old: 75 mL/min/1.73sq m Chronic Kidney Disease: <60 mL/min/1.73sq m Kidney failure: <15 mL/min/1.73sq m eGFR calculated using average adult body mass. Additional eGFR calculator available at: http://www.[employer]/multiple_crcl_2012.htm Stage 1: Some kidney damage normal GFR Stage 2: Mild kidney damage GFR 60-89 Stage 3: Moderate kidney damage GFR 30-59 Stage 4: Severe kidney damage GFR 15-29 Stage 5: Severe kidney damage GFR <15 ESRD - chronic treatment by dialysis or transplant Lipid Panelon 09-23-2021 Cholesterol [Mass/Vol] 150 mg/dL <200 [facility] Comment on above: Cholesterol Guidelines: <200 Desirable 200-240 Borderline >240 Undesirable Cholesterol in HDL [Mass/Vol] 48 mg/dL >40 [facility] Comment on above: HDL Guidelines: <40 Undesirable 40-59 Borderline >59 Desirable Cholesterol in LDL [Mass/Vol] 83 mg/dL 0 - 130 mg/dL [facility] Comment on above: LDL Guidelines: <100 Desirable 100-129 Near to/above Desirable 130-159 Borderline >159 Undesirable Direct (measured) LDL and calculated LDL are not interchangeable tests. Cholesterol.total/Chol esterol in HDL [Mass ratio] 3.1 {ratio} <5 [facility] Triglyceride [Mass/Vol] 97 mg/dL <150 [facility] Comment on above: Triglyceride Guidelines: <150 Desirable 150-199 Borderline 200-499 High >499 Very high Based on AHA Guidelines for fasting triglyceride, January 2012. [facility] Lipid Profileon 09-23-2021 Cholesterol [Mass/Vol] 150 mg/dL Normal <[address] [facility] Comment on above: Result Comment: Cholesterol Guidelines: <200 Desirable 200-240 Borderline >240 Undesirable Performed By: #### B C #### [facility] [address] [place] [address] [place] [address] Change Over: Emerson Hall MD Cholesterol in HDL [Mass/Vol] 48 mg/dL Normal >40 [facility] Comment on above: Result Comment: HDL Guidelines: <40 Undesirable 40-59 Borderline >59 Desirable Performed By: #### B C #### [facility] [address] [place] [address] Change Over: Emerson Hall MD Cholesterol in LDL [Mass/Vol] 83 mg/dL Normal 0-130 [facility] Comment on above: Result Comment: LDL Guidelines: <100 Desirable 100-129 Near to/above Desirable 130-159 Borderline >159 Undesirable Direct (measured) LDL and calculated LDL are not interchangeable tests. Performed By: #### B C #### [facility] [address] [place] [address] Change Over: Emerson Hall MD Cholesterol.total/Chol esterol in HDL [Mass ratio] 3.1 {ratio} Normal <5 [facility] Comment on above: Performed By: #### B C #### [facility] [address] [place] [address] [place] [address] Change Over: Emerson Hall MD Triglyceride [Mass/Vol] 97 mg/dL Normal <150 [facility] Comment on above: Result Comment: Triglyceride Guidelines: <150 Desirable 150-199 Borderline 200-499 High >499 Very high Based on AHA Guidelines for fasting triglyceride, January 2012. Performed By: #### B C #### [address] [place] [address] Change Over: Emerson Hall MD Lipid Profileon 04-29-2021 Cholesterol [Mass/Vol] 162 mg/dL Normal <[address] [facility] Comment on above: Result Comment: Cholesterol Guidelines: <200 Desirable 200-240 Borderline >240 Undesirable Performed By: #### C DP, CP #### [facility] [address] [place] [address] [place] [address] Change Over: Emerson Hall MD #### LIPR #### [address] [place], [place] [phone] Change Over: Kyle Cowan MD Cholesterol in HDL [Mass/Vol] 58 mg/dL Normal >40 [facility] Comment on above: Result Comment: HDL Guidelines: <40 Undesirable 40-59 Borderline >59 Desirable Performed By: #### C DP, CP #### [facility] [address] [place] [address] [place] [address] Change Over: Emerson Hall MD #### LIPR #### [place] [address]80[address] [place], [place] [id number] Change Over: Kyle Cowan MD Cholesterol in LDL [Mass/Vol] 86 mg/dL Normal 0-130 [facility] Comment on above: Result Comment: LDL Guidelines: <100 Desirable 100-129 Near to/above Desirable 130-159 Borderline >159 Undesirable Direct (measured) LDL and calculated LDL are not interchangeable tests. Performed By: #### C DP, CP #### [facility] [address] [place], [place] [id number] Change Over: Emerson Hall MD #### LIPR #### [address] [id number] Change Over: Kyle Cowan MD Cholesterol.total/Chol esterol in HDL [Mass ratio] 2.8 {ratio} Normal <5 [facility] Comment on above: Performed By: #### C DP, CP #### [facility] [address] [place] [id number] Change Over: Emerson Hall MD #### LIPR #### [address] [address] Change Over: Kyle Cowan MD Triglyceride [Mass/Vol] 88 mg/dL Normal <150 [facility] Comment on above: Result Comment: Triglyceride Guidelines: <150 Desirable 150-199 Borderline 200-499 High >499 Very high Based on AHA Guidelines for fasting triglyceride, January 2012. Performed By: #### C KOLBY, CP #### [facility] [address] [place] [id number] Change Over: Emerson Hall MD #### LIPR #### [address] [address] Change Over: Kyle Cowan MD CBC with Diffon 04-28-2021 Abs. Basophil 0.06 k/uL Normal 0.00-0.20 [facility] Comment on above: Performed By: #### C KOLBY, CP #### [facility] [address] [place] [address] Change Over: Emerson Hall MD #### LIPR #### [address] [place], [place] [id number] Change Over: Kyle Cowan MD Abs.Imm.Granulocyte <0.03 Normal 0.00-0.30 [facility] Comment on above: Performed By: #### C DP, CP #### [facility] [address] [place], [place] 820[address]83 Change Over: Emerson Hall MD #### LIPR #### [address] [id number] Change Over: Kyle Cowan MD Abs.Neutrophil (Seg) 5.78 k/uL Normal 1.50-8.10 [facility] Comment on above: Performed By: #### C DP, CP #### [facility] [address] [place] [address] [place], [place] [id number] Change Over: Emerson Hall MD #### LIPR #### [address] [id number] Change Over: Kyle Cowan MD Basophils/100 WBC (Bld) 1 % Normal 0-2 [facility] Comment on above: Performed By: #### C DP, CP #### [address] [place], [place] 7377383 Change Over: Eemrson Hall MD #### LIPR #### [address] [address] Change Over: Kyle Cowan MD Eosinophils (Bld) [#/Vol] 0.19 10*3/uL Normal 0.00-0.44 [facility] Comment on above: Performed By: #### C DP, CP #### [facility] [address] [place] [address] [place], [place] [phone] Change Over: Emerson Hall MD #### LIPR #### [address] [address] Change Over: yKle Cowan MD Eosinophils/100 WBC (Bld) 2 % Normal 1-4 [facility] Comment on above: Performed By: #### C DP, CP #### [address] [place], [place] 4341583 Change Over: Emerson Hall MD #### LIPR #### [address] [id number] Change Over: Kyle Cowan MD Erythrocyte distribution width (RBC) [Ratio] 12.3 % Normal 11.8-14.4 [facility] Comment on above: Performed By: #### C DP, CP #### [address] [place], [place] 0355183 Change Over: Emerson Hall MD #### LIPR #### [address] [id number] Change Over: Kyle Cowan MD Hematocrit (Bld) [Volume fraction] 37.6 % Normal 36.3-47.1 [facility] Comment on above: Performed By: #### C DP, CP #### [address] [place], [place] [phone] Change Over: Emerson Hall MD #### LIPR #### [address] [id number] Change Over: Kyle Cowan MD Hemoglobin (Bld) [Mass/Vol] 12.1 g/dL Normal 11.9-15.1 [facility] Comment on above: Performed By: #### C DP, CP #### [address] [place], [place] 1296283 Change Over: Emerson Hall MD #### LIPR #### [address] [address] Change Over: Kyle Cowan MD Immature granulocytes/100 WBC (Bld) 0 % Normal 0 [facility] Comment on above: Performed By: #### C DP, CP #### [address] [place], [place] 4405483 Change Over: Emerson Hall MD #### LIPR #### [address] [id number] Change Over: Kyle Cowan MD Lymphocytes (Bld) [#/Vol] 3.12 10*3/uL Normal 1.10-3.70 [facility] Comment on above: Performed By: #### C DP, CP #### [facility] [address] [place] [address] [place] [address] Change Over: Emerson Hall MD #### LIPR #### [place] [address] Change Over: Kyle Cowan MD Lymphocytes/100 WBC (Bld) 32 % Normal 24-43 [facility] Comment on above: Performed By: #### C DP, CP #### [address] [place] [address] Change Over: Emerson Hall MD #### LIPR #### [place] [address] Change Over: Kyle Cowan MD MCH (RBC) [Entitic mass] 31.6 pg Normal 25.2-33.5 [facility] Comment on above: Performed By: #### C DP, CP #### [address] [place] [address] Change Over: Emerson Hall MD #### LIPR #### [place] [address] Change Over: Kyle Cowan MD MCHC (RBC) [Mass/Vol] 32.2 g/dL Normal 28.4-34.8 [facility] Comment on above: Performed By: #### C DP, CP #### [address] [place] [address] Change Over: Emerson Hall MD #### LIPR #### [address] [address] Change Over: Kyle Cowan MD MCV (RBC) [Entitic vol] 98.2 fL Normal 82.6-102.9 [facility] Comment on above: Performed By: #### C DP, CP #### [facility] [address] [place] [address] Change Over: Emerson Hall MD #### LIPR #### [address] [address] Change Over: Kyle Cowan MD Monocytes (Bld) [#/Vol] 0.69 10*3/uL Normal 0.10-1.20 [facility] Comment on above: Performed By: #### C DP, CP #### [address] [place] [address] Change Over: Emerson Hall MD #### LIPR #### [address] [address] Change Over: Kyle Cowan MD Monocytes/100 WBC (Bld) 7 % Normal 3-12 [facility] Comment on above: Performed By: #### C DP, CP #### [address] [place] [phone] Change Over: Emerson Hall MD #### LIPR #### [address] [address] Change Over: Kyle Cowan MD Neutrophil (Seg) 58 % Normal 36-65 [facility] Comment on above: Performed By: #### C DP, CP #### [address] [place] [address] Change Over: Emerson Hall MD #### LIPR #### [address] [address] Change Over: Kyle Cowan MD NRBC Automated 0.0 per 100 WBC Normal 0.0 [facility] Comment on above: Performed By: #### C DP, CP #### [facility] [address] [place], [place] [phone] Change Over: Emerson Hall MD #### LIPR #### [address] [address] Change Over: Kyle Cowan MD Platelet mean volume (Bld) [Entitic vol] 9.8 fL Normal 8.1-13.5 [facility] Comment on above: Performed By: #### C DP, CP #### [address] [place] [phone] Change Over: Emerson Hall MD #### LIPR #### [address] [address] Change Over: Kyle Cowan MD Platelets (Bld) [#/Vol] 299 10*3/uL Normal 138-453 [facility] Comment on above: Performed By: #### C DP, CP #### [address] [place], [place] 7749383 Change Over: Emerson Hall MD #### LIPR #### [address] [address] Change Over: Kyle Cowan MD RBC (Bld) [#/Vol] 3.83 10*6/uL Low 3.95-5.11 [facility] Comment on above: Performed By: #### C DP, CP #### [facility] [address] [place] [address] [place], [place] 3089383 Change Over: Emerson Hall MD #### LIPR #### [address] [address] Change Over: Kyle Cowan MD WBC (Bld) [#/Vol] 9.9 10*3/uL Normal 3.5-11.3 [facility] Comment on above: Performed By: #### C DP, CP #### [facility] [address] [place] [address] [place] [address] Change Over: Emerson Hall MD #### LIPR #### [address] [address] Change Over: Kyle Cowan MD Auto Diff Performed NOT REPORTED Normal [facility] Comment on above: Performed By: #### C DP, CP #### [address] [address] Change Over: Emerson Hall MD #### LIPR #### [address] [address] Change Over: Kyle Cowan MD Platelet Comment NOT REPORTED Normal [facility] Comment on above: Performed By: #### C DP, CP #### [address] [address] Change Over: Emerson Hall MD #### LIPR #### [address] [address] Change Over: Kyle Cowan MD RBC morphology finding Nom (Bld) NOT REPORTED Normal [facility] Comment on above: Performed By: #### C DP, CP #### [address] [place] [address] Change Over: Emerson Hall MD #### LIPR #### [address] [address] Change Over: Kyle Cowan MD WBC Morphology NOT REPORTED Normal [facility] Comment on above: Performed By: #### C DP, CP #### [facility] [address] [place] [address] Dr[place], [place] [phone] Change Over: Emerson Hall MD #### LIPR #### [address] [place] [address] Change Over: Kyle Cowan MD Comp Metabolic Profon 2021 (cont.) Normal [facility] Comment on above: Result Comment: Aver age GFR for 70 or more years old: 75 mL/min/1.73sq m Chronic Kidney Disease: <60 mL/min/1.73sq m Kidney failure: <15 mL/min/1.73sq m eGFR calculated using average adult body mass. Additional eGFR calculator available at: http://www.[employer]/multiple_crcl_2011.htm Performed By: #### C DP, CP #### [address] [place], [place] [id number] Change Over: Emerson Hall MD #### LIPR #### [address] [address] Change Over: Kyle Cowan MD Albumin [Mass/Vol] 4.0 g/dL Normal 3.5-5.2 [facility] Comment on above: Performed By: #### C DP, CP #### [address] [place], [place] 6418383 Change Over: Emerson Hall MD #### LIPR #### [address] [address] Change Over: Kyle Cowan MD Albumin/Glob Ratio 1.5 Normal 1.0-2.5 [facility] Comment on above: Performed By: #### C DP, CP #### [address] [place], [place] 0509183 Change Over: Emerson Hall MD #### LIPR #### [address] [address] Change Over: Kyle Cowan MD Alkaline Phos 72 U/L Normal 35-104 [facility] Comment on above: Performed By: #### C DP, CP #### [facility] [address] [place] [address] Change Over: Emerson Hall MD #### LIPR #### [address] [address] Change Over: Kyle Cowan MD ALT [Catalytic activity/Vol] 10 U/L Normal 5-33 [facility] Comment on above: Performed By: #### C DP, CP #### [facility] [address] [place] [address] Change Over: Emerson Hall MD #### LIPR #### [address] [address] Change Over: Kyle Cowan MD Anion gap [Moles/Vol] 11 mmol/L Normal 9-17 [facility] Comment on above: Performed By: #### C DP, CP #### [facility] [address] [place] [address] [place] [address] Change Over: Emerson Hall MD #### LIPR #### [address] [address] Change Over: Kyle Cowan MD AST [Catalytic activity/Vol] 17 U/L Normal <32 [facility] Comment on above: Performed By: #### C DP, CP #### [facility] [address] [place], [place] 6983083 Change Over: Emerson Hall MD #### LIPR #### [address] [address] Change Over: Kyle Cowan MD Bilirubin [Mass/Vol] 0.25 mg/dL Low 0.3-1.2 [facility] Comment on above: Performed By: #### C DP, CP #### [facility] [address] [place], [place] 7846683 Change Over: Emerson Hall MD #### LIPR #### [facility] [address] [place] [address] Change Over: Kyle Cowan MD BUN/CRE Ratio 37 High 9-20 [facility] Comment on above: Performed By: #### C DP, CP #### [facility] [address] [place], [place] 9084583 Change Over: Emerson Hall MD #### LIPR #### [address] [address] Change Over: Kyle Cowan MD Calcium [Mass/Vol] 9.4 mg/dL Normal 8.6-10.4 [facility] Comment on above: Performed By: #### C DP, CP #### [facility] [address] [place] [address] Change Over: Emerson Hall MD #### LIPR #### [address] [address] Change Over: Kyle Cowan MD Chloride [Moles/Vol] 105 mmol/L Normal 98-107 [facility] Comment on above: Performed By: #### C DP, CP #### [facility] [address] [place] [address] Change Over: Emerson Hall MD #### LIPR #### [address] [address] Change Over: Kyle Cowan MD CO2 [Moles/Vol] 23 mmol/L Normal 20-31 [facility] Comment on above: Performed By: #### C DP, CP #### [facility] [address] [place] [address] Change Over: Emerson Hall MD #### LIPR #### [address] [address] Change Over: Kyle Cowan MD Creatinine [Mass/Vol] 0.51 mg/dL Normal 0.50-0.90 [facility] Comment on above: Performed By: #### C DP, CP #### [facility] [address] [place], [place] 2572183 Change Over: Emerson Hall MD #### LIPR #### [address] [address] Change Over: Kyle Cowan MD GFR, Amer >60 Normal >60 [facility] Comment on above: Performed By: #### C DP, CP #### [address] [address] Change Over: Emerson Hall MD #### LIPR #### [address] [address] Change Over: Kyle Cowan MD GFR,non Amer >60 Normal >60 [facility] Comment on above: Performed By: #### C DP, CP #### [address] [place], [place] 0953683 Change Over: Emerson Hall MD #### LIPR #### [address] [address] Change Over: Kyle Cowan MD Glucose [Mass/Vol] 97 mg/dL Normal 70-99 [facility] Comment on above: Performed By: #### C DP, CP #### [address] [address] Change Over: Emerson Hall MD #### LIPR #### [address] [phone] Change Over: Kyle Cowan MD Potassium [Moles/Vol] 4.7 mmol/L Normal 3.7-5.3 [facility] Comment on above: Performed By: #### C DP, CP #### [facility] [address] [place] [address] Dr. [place], [place] 8208383 Change Over: Emerson Hall MD #### LIPR #### [address] [phone] Change Over: Kyle Cowan MD Protein [Mass/Vol] 6.6 g/dL Normal 6.4-8.3 [facility] Comment on above: Performed By: #### C DP, CP #### [address] [place], [place] 6362283 Change Over: Emerson Hall MD #### LIPR #### [address] [address] Change Over: Kyle Cowan MD Sodium [Moles/Vol] 139 mmol/L Normal 135-144 [facility] Comment on above: Performed By: #### C KOLBY, CP #### [address] [place], [place] 6609183 Change Over: Emerson Hall MD #### LIPR #### [address] [address] Change Over: Kyle Cowan MD Staging: Normal [facility] Comment on above: Result Comment: Stag e 1: Some kidney damage normal GFR Stage 2: Mild kidney damage GFR 60-89 Stage 3: Moderate kidney damage GFR 30-59 Stage 4: Severe kidney damage GFR 15-29 Stage 5: Severe kidney damage GFR <15 ESRD - chronic treatment by dialysis or transplant Performed By: #### C DP, CP #### [address] [place], [place] 2695483 Change Over: Emerson Hall MD #### LIPR #### [facility] [address] [place], [place] 0634308 Change Over: Kyle Cowan MD Urea nitrogen [Mass/Vol] 19 mg/dL Normal 8-23 [facility] Comment on above: Performed By: #### C DP, CP #### [facility] [address] [place] [address] Change Over: Emerson Hall MD #### LIPR #### [address] [place] [address] Change Over: Kyle Cowan MD Lipid Profileon 04-28-2021 Cholesterol,VLDL NOT REPORTED Normal 05-09 [facility] Comment on above: Performed By: #### C DP, CP #### [address] [place] [address] Change Over: Emerson Hall MD #### LIPR #### [address] [place], [place] 1234408 Change Over: Kyle Cowan MD Cult,Bloodon 10-25-2020 Cult,Blood Specimen Description .BLOOD Special Requests R AC 14ML Culture NO GROWTH 6 DAYS Report Status FINAL 10/25/2020 Normal [facility] Comment on above: Performed By: #### B C #### [address] [place] [address] Change Over: Emerson Hall MD Cult,Blood Specimen Description .BLOOD Special Requests L HAND 2ML Culture NO GROWTH 6 DAYS Report Status FINAL 10/25/2020 Normal [facility] Comment on above: Performed By: #### B C #### [facility] [address] [place] [address] Change Over: Emerson Hall MD CBCon 10-20-2020 Erythrocyte distribution width (RBC) [Ratio] 12.3 % Normal 11.8-14.4 [facility] Comment on above: Performed By: #### B C #### [address] [place] [address] Change Over: Emerson Hall MD Hematocrit (Bld) [Volume fraction] 34.0 % Low 36.3-47.1 [facility] Comment on above: Performed By: #### B C #### [address] [place], [facility]83 Change Over: Emerson Hall MD Hemoglobin (Bld) [Mass/Vol] 11.3 g/dL Low 11.9-15.1 [facility] Comment on above: Performed By: #### B C #### [address] [place] [address] Change Over: Emerson Hall MD MCH (RBC) [Entitic mass] 31.5 pg Normal 25.2-33.5 [facility] Comment on above: Performed By: #### B C #### [address] [place], [facility]83 Change Over: Emerson Hall MD MCHC (RBC) [Mass/Vol] 33.2 g/dL Normal 28.4-34.8 [facility] Comment on above: Performed By: #### B C #### [address] [place], [facility]83 Change Over: Emerson Hall MD MCV (RBC) [Entitic vol] 94.7 fL Normal 82.6-102.9 [facility] Comment on above: Performed By: #### B C #### [address] [place] [address] Change Over: Emerson Hall MD NRBC Automated 0.0 per 100 WBC Normal 0.0 [facility] Comment on above: Performed By: #### B C #### [address] [place], [facility]83 Change Over: Emerson Hall MD Platelet mean volume (Bld) [Entitic vol] 8.9 fL Normal 8.1-13.5 [facility] Comment on above: Performed By: #### B C #### [facility] [address] [place] [address] Change Over: Emerson Hall MD Platelets (Bld) [#/Vol] 191 10*3/uL Normal 138-453 [facility] Comment on above: Performed By: #### B C #### [facility] [address] [place] [address] Change Over: Emerson Hall MD RBC (Bld) [#/Vol] 3.59 10*6/uL Low 3.95-5.11 [facility] Comment on above: Performed By: #### B C #### [facility] [address] [place], [place] 4744583 Change Over: Emerson Hall MD WBC (Bld) [#/Vol] 8.5 10*3/uL Normal 3.5-11.3 [facility] Comment on above: Performed By: #### B C #### [facility] [address] [place] [address] Change Over: Emerson Hall MD CBCOrdered By: Casandra Cerda on 10-20-2020 Hematocrit (Bld) [Volume fraction] 34.0 % Low 36.3 - 47.1 % [facility] [employer] Phone: Hemoglobin.gastrointes tinal spec 1 Ql (Stl) 11.3 g/dL Low 11.9 - 15.1 g/dL [employer] Phone: Interpretation and review of laboratory results Abnormal [employer] Phone: MCH (RBC) [Entitic mass] 31.5 pg 25.2 - 33.5 pg [employer] Phone: MCHC (RBC) [Mass/Vol] 33.2 g/dL 28.4 - 34.8 g/dL [employer] Phone: MCV (RBC) [Entitic vol] 94.7 fL 82.6 - 102.9 fL [employer] Phone: NRBC Automated 0.0 0.0 per 100 WBC [employer] Phone: Platelet distribution width (Bld) [Ratio] 12.3 % 11.8 - 14.4 % [employer] Phone: Platelet mean volume (Bld) [Entitic vol] 8.9 fL 8.1 - 13.5 fL [employer] Phone: Platelets (Bld) [#/Vol] 191 10*3/uL [employer] Phone: RBC (Bld) [#/Vol] 3.59 10*6/uL Low 3.95 - 5.1 1 m/uL [employer] Work Phone: WBC (Bld) [#/Vol] 8.5 10*3/uL [employer] Phone: [employer] Phone: CBC Auto DifferentialOrdered By: Radu Worrell on 10-20-2020 Absolute Eos # 0.27 [facility] Work Phone: Comment on above: CORRECTED ON 10/20 A T 0933: PREVIOUSLY REPORTED 0.54 Absolute Immature Granulocyte 0.00 [employer] Work Phone: Absolute Lymph # 4.86 High [facility] Work Phone: Comment on above: CORRECTED ON 10/20 A T 0933: PREVIOUSLY REPORTED 3.11 Absolute [place] # 1.08 High [employer] [facility] Work Phone: Comment on above: CORRECTED ON 10/20 A T 0933: PREVIOUSLY REPORTED 0.54 Basophils (Bld) [#/Vol] 0.14 10*3/uL [employer] Phone: Comment on above: CORRECTED ON 10/20 A T 0933: PREVIOUSLY REPORTED 0.00 Basophils/100 WBC (Bld) 1 % 0 - 2 % [employer] Phone: Comment on above: CORRECTED ON 10/20 A T 0933: PREVIOUSLY REPORTED 0 Differential Type NOT REPORTED [employer] Phone: Eosinophils/100 WBC (Bld) 2 % 1 - 4 % [employer] Phone: Comment on above: CORRECTED ON 10/20 A T 0933: PREVIOUSLY REPORTED 4 Hematocrit (Bld) [Volume fraction] 36.4 % 36.3 - 47.1 % [employer] Phone: Hemoglobin.gastrointes tinal spec 1 Ql (Stl) 12.1 g/dL 11.9 - 15.1 g/dL [employer] Phone: Immature granulocytes/100 WBC (Bld) 0 % 0 [employer] Phone: Interpretation and review of laboratory results Abnormal [employer] Phone: Lymphocytes/100 WBC (Bld) 36 % 24 - 44 % [employer] Phone: Comment on above: CORRECTED ON 10/20 A T 0933: PREVIOUSLY REPORTED 23 MCH (RBC) [Entitic mass] 31.0 pg 25.2 - 33.5 pg [employer] Phone: MCHC (RBC) [Mass/Vol] 33.2 g/dL 28.4 - 34.8 g/dL [employer] Phone: MCV (RBC) [Entitic vol] 93.3 fL 82.6 - 102.9 fL [employer] Phone: Monocytes/100 WBC (Bld) 8 % High 1 - 7 % [employer] Phone: Comment on above: CORRECTED ON 10/20 A T 0933: PREVIOUSLY REPORTED 4 Morphology Elliott (Bld) [Interp] Normal [employer] Work Phone: nRBC 0 0 per 100 WBC [employer] Work Phone: Comment on above: CORRECTED ON 10/20 A T 0933: PREVIOUSLY REPORTED 9 NRBC Automated 0.0 0.0 per 100 WBC [employer] Phone: Platelet distribution width (Bld) [Ratio] 12.3 % 11.8 - 14.4 % [employer] Work Phone: Platelet Estimate NOT REPORTED [employer] Work Phone: Platelet mean volume (Bld) [Entitic vol] 9.3 fL 8.1 - 13.5 fL [employer] Phone: Platelets (Bld) [#/Vol] 281 10*3/uL [employer] Phone: RBC (Bld) [#/Vol] 3.90 10*6/uL Low 3.95 - 5.1 1 m/uL [employer] Work Phone: RBC (Bld) [#/Vol] NOT REPORTED [employer] Phone: Seg Neutrophils 53 % 36 - 66 % [employer] Work Phone: Comment on above: CORRECTED ON 10/20 A T 0933: PREVIOUSLY REPORTED 69 Segs Absolute 7.15 [facility] Work Phone: Comment on above: CORRECTED ON 10/20 A T 0933: PREVIOUSLY REPORTED 9.31 WBC (Bld) [#/Vol] 13.5 10*3/uL High [employer] Work Phone: WBC (Bld) [#/Vol] NOT REPORTED [employer] Work Phone: [employer] Work Phone: CBC with Diffon 10-20-2020 Abs. Basophil 0.14 k/uL Normal 0.0-0.2 [facility] Comment on above: Result Comment: GIOVANA ECTED ON 10/20 AT 0933: PREVIOUSLY REPORTED 0.00 Performed By: #### B C #### [facility] [address] [place] [address] [place] [address] Change Over: Emerson Hall MD Abs.Neutrophil (Seg) 7.15 k/uL Normal 1.8-7.7 [facility] Comment on above: Result Comment: GIOVANA ECTED ON 10/20 AT 0933: PREVIOUSLY REPORTED 9.31 Performed By: #### B C #### [address] [place], [place] [id number] Change Over: Emerson Hall MD Basophils/100 WBC (Bld) 1 % Normal 0-2 [facility] Comment on above: Result Comment: GIOVANA ECTED ON 10/20 AT 0933: PREVIOUSLY REPORTED 0 Performed By: #### B C #### [address] [place] [address] Change Over: Emerson Hall MD Eosinophils (Bld) [#/Vol] 0.27 10*3/uL Normal 0.0-0.4 [facility] Comment on above: Result Comment: GIOVANA ECTED ON 10/20 AT 0933: PREVIOUSLY REPORTED 0.54 Performed By: #### B C #### [address] [place] [address] Change Over: Emerson Hall MD Eosinophils/100 WBC (Bld) 2 % Normal 1-4 [facility] Comment on above: Result Comment: GIOVANA ECTED ON 10/20 AT 0933: PREVIOUSLY REPORTED 4 Performed By: #### B C #### [address] [place] [address] Change Over: Emerson Hall MD Lymphocytes (Bld) [#/Vol] 4.86 10*3/uL High 1.0-4.8 [facility] Comment on above: Result Comment: GIOVANA ECTED ON 10/20 AT 0933: PREVIOUSLY REPORTED 3.11 Performed By: #### B C #### [facility] [address] [place], [place] [id number] Change Over: Emerson Hall MD Lymphocytes/100 WBC (Bld) 36 % Normal 24-44 [facility] Comment on above: Result Comment: GIOVANA ECTED ON 10/20 AT 0933: PREVIOUSLY REPORTED 23 Performed By: #### B C #### [facility] [address] [place], [place] [id number] Change Over: Emerson Hall MD Monocytes (Bld) [#/Vol] 1.08 10*3/uL High 0.1-0.8 [facility] Comment on above: Result Comment: GIOVANA ECTED ON 10/20 AT 09: PREVIOUSLY REPORTED 0.54 Performed By: #### B C #### [facility] [address] [place], [place] [id number] Change Over: Emerson Hall MD Monocytes/100 WBC (Bld) 8 % High 1-7 [facility] Comment on above: Result Comment: GIOVANA ECTED ON 10/20 AT 09: PREVIOUSLY REPORTED 4 Performed By: #### B C #### [address] [place] [address] Change Over: Emerson Hall MD Neutrophil (Seg) 53 % Normal 36-66 [facility] Comment on above: Result Comment: GIOVANA ECTED ON 10/20 AT 09: PREVIOUSLY REPORTED 69 Performed By: #### B C #### [facility] [address] [place] [address] Change Over: Emerson Hall MD Nucleated RBC'S 0 per 100 WBC Normal 0 [facility] Comment on above: Result Comment: GIOVANA ECTED ON 10/20 AT 0933: PREVIOUSLY REPORTED 9 Performed By: #### B C #### [facility] [address] [place] [address] Change Over: Emerson Hall MD Comp Metabolic Pr/rfx MGon 0 10-20-2020 (cont.) Normal [facility] Comment on above: Result Comment: Aver age GFR for 70 or more years old: 75 mL/min/1.73sq m Chronic Kidney Disease: <60 mL/min/1.73sq m Kidney failure: <15 mL/min/1.73sq m eGFR calculated using average adult body mass. Additional eGFR calculator available at: http://www.[employer]/multiple_crcl_2012.htm Performed By: #### B C #### [facility] [address] [place] [address] [place] [address] Change Over: Emerson Hall MD Albumin [Mass/Vol] 3.1 g/dL Low 3.5-5.2 [facility] Comment on above: Performed By: #### B C #### [facility] [address] [place] [address] Change Over: Emerson Hall MD Albumin/Glob Ratio 1.2 Normal 1.0-2.5 [facility] Comment on above: Performed By: #### B C #### [facility] [address] [place], [place] [id number] Change Over: Emerson Hall MD Alkaline Phos 64 U/L Normal 35-104 [facility] Comment on above: Performed By: #### B C #### [facility] [address] [place], [place] [id number] Change Over: Emerson Hall MD ALT [Catalytic activity/Vol] 7 U/L Normal 5-33 [facility] Comment on above: Performed By: #### B C #### [facility] [address] [place] [address] Change Over: Emerson Hall MD Anion gap [Moles/Vol] 10 mmol/L Normal 9-17 [facility] Comment on above: Performed By: #### B C #### [facility] [address] [place], [place] [id number] Change Over: Emerson Hall MD AST [Catalytic activity/Vol] 13 U/L Normal <32 [facility] Comment on above: Performed By: #### B C #### [facility] [address] [place], [place] [id number] Change Over: Emerson Hall MD Bilirubin [Mass/Vol] 0.17 mg/dL Low 0.3-1.2 [facility] Comment on above: Performed By: #### B C #### [facility] [address] [place], [place] [id number] Change Over: Emerson Hall MD BUN/CRE Ratio 20 Normal 9-20 [facility] Comment on above: Performed By: #### B C #### [facility] [address] [place], [place] [id number] Change Over: Emerson Hall MD Calcium [Mass/Vol] 8.6 mg/dL Normal 8.6-10.4 [facility] Comment on above: Performed By: #### B C #### [facility] [address] [place], [place] [id number] Change Over: Emerson Hall MD Chloride [Moles/Vol] 103 mmol/L Normal 98-107 [facility] Comment on above: Performed By: #### B C #### [facility] [address] [place], [place] [id number] Change Over: Emerson Hall MD CO2 [Moles/Vol] 22 mmol/L Normal 20-31 [facility] Comment on above: Performed By: #### B C #### [facility] [address] [place], [place] 1724183 Change Over: Emerson Hall MD Creatinine [Mass/Vol] 0.61 mg/dL Normal 0.50-0.90 [facility] Comment on above: Performed By: #### B C #### [facility] [address] [place], [place] 1320083 Change Over: Emerson Hall MD GFR, Amer >60 Normal >60 [facility] Comment on above: Performed By: #### B C #### [facility] [address] [place], [place] 0131483 Change Over: Emerson Hall MD GFR,non Amer >60 Normal >60 [facility] Comment on above: Performed By: #### B C #### [facility] [address] [place], [place] [id number] Change Over: Emerson Hall MD Glucose [Mass/Vol] 91 mg/dL Normal 70-99 [facility] Comment on above: Performed By: #### B C #### [facility] [address] [place], [place] 3335983 Change Over: Emerson Hall MD Potassium [Moles/Vol] 4.5 mmol/L Normal 3.7-5.3 [facility] Comment on above: Performed By: #### B C #### [facility] [address] [place], [place] [phone] Change Over: Emerson Hall MD Protein [Mass/Vol] 5.6 g/dL Low 6.4-8.3 [facility] Comment on above: Performed By: #### B C #### [facility] [address] [place] [address] Change Over: Emerson Hall MD Sodium [Moles/Vol] 135 mmol/L Normal 135-144 [facility] Comment on above: Performed By: #### B C #### [facility] [address] [place], [place] [phone] Change Over: Emerson Hall MD Staging: Normal [facility] Comment on above: Result Comment: Stag e 1: Some kidney damage normal GFR Stage 2: Mild kidney damage GFR 60-89 Stage 3: Moderate kidney damage GFR 30-59 Stage 4: Severe kidney damage GFR 15-29 Stage 5: Severe kidney damage GFR <15 ESRD - chronic treatment by dialysis or transplant Performed By: #### B C #### [facility] [address] [place] [address] Change Over: Emerson Hall MD Urea nitrogen [Mass/Vol] 12 mg/dL Normal 8- [facility] Comment on above: Performed By: #### B C #### [facility] [address] [place] [address] Change Over: Emerson Hall MD Comprehensive Metabolic Pane l w/ Reflex to MGOrdered By: Casandra Cerda on 10-20-2020 Albumin [Mass/Vol] 3.1 g/dL Low 3.5 - 5.2 g/dL [employer] Phone: Albumin/Globulin [Mass ratio] 1.2 {ratio} [employer] Phone: ALP (Bld) [Catalytic activity/Vol] 64 U/L 35 - 104 U/L [employer] Phone: ALT [Catalytic activity/Vol] 7 U/L 5 - 33 U/L [facility] Phone: Anion gap [Moles/Vol] 10 mmol/L 9 - 17 mmol/L [facility] Phone: AST [Catalytic activity/Vol] 13 U/L <32 [employer] Phone: Bilirubin [Mass/Vol] 0.17 mg/dL Low 0.3 - 1 .2 mg/dL [employer] Phone: Calcium [Mass/Vol] 8.6 mg/dL 8.6 - 10. 4 mg/dL [employer] Phone: Chloride [Moles/Vol] 103 mmol/L 98 - 10 7 mmol/L [employer] Phone: CO2 [Moles/Vol] 22 mmol/L 20 - 31 mmol/L [facility] Phone: Creatinine [Mass/Vol] 0.61 mg/dL 0.50 - 0.90 mg/dL [employer] Phone: Free PSA/Total PSA [Mass fraction] 5.6 g/dL Low 6.4 - 8.3 g/dL [facility] Phone: GFR >60 >60 mL/min [employer] Phone: GFR Non- >60 >60 mL/min [employer] Phone: Glucose [Mass/Vol] 91 mg/dL 70 - 99 mg/dL [employer] Phone: Interpretation and review of laboratory results Abnormal [employer] Phone: Potassium [Moles/Vol] 4.5 mmol/L 3.7 - 5.3 mmol/L [facility] Phone: Sodium [Moles/Vol] 135 mmol/L 135 - 144 mmol/L [facility] Phone: Urea nitrogen (BldV) [Mass/Vol] 12 mg/dL 8 - 23 mg/dL [facility] Phone: Urea nitrogen/Creatinine (Bld) [Mass ratio] [address] [facility] Phone: [facility] Phone: Keppraon 10-20-2020 KEPP 19 ug/mL Normal [facility] Comment on above: Result Comment: A reference range for Keppra has not been well established. The proposed therapeutic range for seizure control is 6-46 ug/mL. Measurement of Levetiracetam (Keppra) can be elevated due to the presence of both Keppra and Brivaracetam (Briviact) in the patient's system. The medications are structurally similar thus cross reactivity is possible. Pharmacokinetics of Keppra are affected by renal function. The relationship between serum concentrations and toxicity is not known. Performed By: #### K EPPRA #### [address] [place] [address] Change Over: Kyle Cowan MD Laboratory - Chemistry and C hemistry - challengeOrdered By: Casandra Cerda on 10-20-2020 GFR/1.73 sq M.predicted MDRD (S/P/Bld) [Vol rate/Area] [employer] Phone: Comment on above: Average GFR for 70 o r more years old: 75 mL/min/1.73sq m Chronic Kidney Disease: <60 mL/min/1.73sq m Kidney failure: <15 mL/min/1.73sq m eGFR calculated using average adult body mass. Additional eGFR calculator available at: http://www.[employer]/multiple_crcl_2012.htm Stage 1: Some kidney damage normal GFR Stage 2: Mild kidney damage GFR 60-89 Stage 3: Moderate kidney damage GFR 30-59 Stage 4: Severe kidney damage GFR 15-29 Stage 5: Severe kidney damage GFR <15 ESRD - chronic treatment by dialysis or transplant Levetiracetam LevelOrdered B y: Casandra Cerda on 10-20-2020 Levetiracetam Lvl 19 ug/mL [employer] Work Phone: Comment on above: A reference range for Keppra has not been well established. The proposed therapeutic range for seizure control is 6-46 ug/mL. Measurement of Levetiracetam (Keppra) can be elevated due to the presence of both Keppra and Brivaracetam (Briviact) in the patient's system. The medications are structurally similar thus cross reactivity is possible. Pharmacokinetics of Keppra are affected by renal function. The relationship between serum concentrations and toxicity is not known. [employer] Phone: Blood Gas, VenousOrdered By: Radu Worrell on 10-19-2020 Arthur Test NOT REPORTED [employer] Phone: Carboxyhemoglobin NOT REPORTED 0.0 - 5.0 % [facility] Work Phone: Comment on above: FIO2 NOT REPORTED [facility] Work Phone: HCO3 (Bld) [Moles/Vol] 28 mmol/L 24.0 - 30.0 mmol/L [facility] Work Phone: Interpretation and review of laboratory results Abnormal [facility] Work Phone: Methemoglobin NOT REPORTED 0.0 - 1.9 % [employer] Work Phone: Mode NOT REPORTED [facility] [employer] Work Phone: Negative Base Excess, Moncho NOT REPORTED 0.0 - 2.0 mmol/L [facility] Work Phone: NOTIFICATION NOT REPORTED [employer] Work Phone: NOTIFICATION TIME NOT REPORTED [facility] [employer] Work Phone: O2 Device/Flow/% NOT REPORTED [facility] [employer] Work Phone: Oxygen saturation in Blood 39.6 % Low 60.0 - 85.0 % [facility] [employer] Work Phone: Oxyhemoglobin NOT REPORTED 95.0 - 98.0 % [facility] [employer] Work Phone: pCO2, Moncho 52.9 [facility] Work Phone: pCO2, Moncho, Temp Adj NOT REPORTED [facility] Work Phone: Peep/Cpap NOT REPORTED [facility] Work Phone: pH, Moncho 7.342 [facility] Work Phone: pH, Moncho, Temp Adj NOT REPORTED [facility] Work Phone: pO2, Moncho 24.4 Low [facility] Work Phone: pO2, Moncho, Temp Adj NOT REPORTED [facility] [employer] Work Phone: Positive Base Excess, Moncho 1.2 mmol/L 0.0 - 2.0 mmol/L [employer] Phone: PSV NOT REPORTED [employer] Phone: Pt Temp 37.0 [employer] Phone: Pt. Position NOT REPORTED [email or web address] Work Phone: Respiratory Rate NOT REPORTED [employer] Phone: Sample Site NOT REPORTED [email or web address] Work Phone: Set Rate NOT REPORTED [employer] Phone: Text for Respiratory DRAWN PER ED RN [employer] Phone: Total Hb NOT REPORTED 12.0 - 16.0 g/dl [employer] Phone: Total Rate NOT REPORTED [employer] Phone: VT NOT REPORTED [employer] Phone: [employer] Phone: Brain Natri. Peptideon 10-19 BNP Interpretation Pro-BNP Reference Range: Normal [facility] Comment on above: Result Comment: Rule Out: <300 Horne Zone: Age <50 300-450 Age 50-75 300-900 Age >75 300-1800 Usually represents mild to moderate HF but other cardiopulmonary causes cannot be ruled out. Rule In: Age <50 >450 Age 50-75 >900 Age >75 >1800 Performed By: #### B C #### [facility] [address] [place] [address] Change Over: Emerson Hall MD Natriuretic peptide B (Bld) [Mass/Vol] 158 pg/mL Normal <300 [facility] Comment on above: Result Comment: Pro- BNP results cannot be compared to BNP results. Performed By: #### B C #### [facility] [address] [place] [address] Change Over: Emerson Hall MD Brain Natriuretic PeptideOrd ered By: Radu Worrell on 10-19-2020 BNP Interpretation Pro-BNP Reference Range: [facility] Phone: Comment on above: Rule Out: <300 Horne Zone: Age <50 300-450 Age 50-75 300-900 Age >75 300-1800 Usually represents mild to moderate HF but other cardiopulmonary causes cannot be ruled out. Rule In: Age <50 >450 Age 50-75 >900 Age >75 >1800 Natriuretic peptide B (Bld) [Mass/Vol] 158 pg/mL <300 [employer] Phone: Comment on above: Pro-BNP results liana ot be compared to BNP results. CBC with Diffon 10-19-2020 Abs.Imm.Granulocyte 0.00 k/uL Normal 0.00-0.30 [facility] Comment on above: Performed By: #### B C #### [facility] [address] [place] [address] [place] [address] Change Over: Emerson Hall MD Immature granulocytes/100 WBC (Bld) 0 % Normal 0 [facility] Comment on above: Performed By: #### B C #### [facility] [address] [place] [address] Change Over: Emerosn Hall MD Morphology Elliott (Bld) [Interp] Normal Normal [facility] Comment on above: Performed By: #### B C #### [facility] [address] [place] [address] Dr. [place], [facility]83 Change Over: Emerson Hall MD Erythrocyte distribution width (RBC) [Ratio] 12.3 % Normal 11.8-14.4 [facility] Comment on above: Performed By: #### B C #### [facility] [address] [place] [address] Change Over: Emerson Hall MD Hematocrit (Bld) [Volume fraction] 36.4 % Normal 36.3-47.1 [facility] Comment on above: Performed By: #### B C #### [facility] [address] [place] [address] Change Over: Emerson Hall MD Hemoglobin (Bld) [Mass/Vol] 12.1 g/dL Normal 11.9-15.1 [facility] Comment on above: Performed By: #### B C #### [address] [place] [address] Change Over: Emerson Hall MD MCH (RBC) [Entitic mass] 31.0 pg Normal 25.2-33.5 [facility] Comment on above: Performed By: #### B C #### [address] [place] [address] Change Over: Emerson Hall MD MCHC (RBC) [Mass/Vol] 33.2 g/dL Normal 28.4-34.8 [facility] Comment on above: Performed By: #### B C #### [address] [place], [place] [id number] Change Over: Emerson Hall MD MCV (RBC) [Entitic vol] 93.3 fL Normal 82.6-102.9 [facility] Comment on above: Performed By: #### B C #### [address] [place], [place] 8[address]83 Change Over: Emerson Hall MD NRBC Automated 0.0 per 100 WBC Normal 0.0 [facility] Comment on above: Performed By: #### B C #### [facility] [address] [place] [address] [place] [address] Change Over: Emerson Hall MD Platelet mean volume (Bld) [Entitic vol] 9.3 fL Normal 8.1-13.5 [facility] Comment on above: Performed By: #### B C #### [address] [place] [address] Change Over: Emerson Hall MD Platelets (Bld) [#/Vol] 281 10*3/uL Normal 138-453 [facility] Comment on above: Performed By: #### B C #### [facility] [address] [place], [place] [id number] Change Over: Emerson Hall MD RBC (Bld) [#/Vol] 3.90 10*6/uL Low 3.95-5.11 [facility] Comment on above: Performed By: #### B C #### [facility] [address] [place] [address] Change Over: Emerson Hall MD WBC (Bld) [#/Vol] 13.5 10*3/uL High 3.5-11.3 [facility] Comment on above: Performed By: #### B C #### [facility] [address] [place] [address] Dr. [place], [place] [address] Change Over: Emerson Hall MD Auto Diff Performed NOT REPORTED Normal [facility] Comment on above: Performed By: #### B C #### [facility] [address] [place] [address] Dr. [place], [place] [address] Change Over: Emerson Hall MD Platelet Estimate NOT REPORTED Normal [facility] Comment on above: Performed By: #### B C #### [facility] [address] [place] [address] Dr. [place], [facility]83 Change Over: Emerson Hall MD RBC morphology finding Nom (d) NOT REPORTED Normal [facility] Comment on above: Performed By: #### B C #### [facility] [address] [place], [facility]83 Change Over: Emerson Hall MD WBC Morphology NOT REPORTED Normal [facility] Comment on above: Performed By: #### B C #### [facility] [address] [place], [place] [id number] Change Over: Emerson Hall MD CT HEAD WO CONTRASTon 2020 CT HEAD WO CONTRAST EXAMINATION: CT OF THE HEAD WITHOUT CONTRAST 10/19/2020 3:00 pm TECHNIQUE: CT of the head was performed without the administration of intravenous contrast. Dose modulation, iterative reconstruction, and/or weight based adjustment of the mA/kV was utilized to reduce the radiation dose to as low as reasonably achievable. COMPARISON: 08/03/2020 HISTORY: ORDERING SYSTEM PROVIDED HISTORY: ams, TECHNOLOGIST PROVIDED HISTORY: ams, Decision Support Exception - unselect if not a suspected or confirmed emergency medical condition->Emergency Medical Condition (MA) FINDINGS: BRAIN/VENTRICLES: There is no acute intracranial hemorrhage, mass effect or midline shift. No abnormal extra-axial fluid collection. The bran-white differentiation is maintained without evidence of an acute infarct. There is unchanged commensurate prominence of the ventricles and sulci due to global parenchymal volume loss. There are unchanged scattered nonspecific areas of hypoattenuation within the periventricular and subcortical white matter, which likely represent chronic microvascular ischemic change. Unchanged small left pontine calcification. ORBITS: The visualized portion of the orbits demonstrate no acute abnormality. SINUSES: The visualized paranasal sinuses and mastoid air cells demonstrate no acute abnormality with chronic mucoperiosteal thickening of the left maxillary sinus. SOFT TISSUES/SKULL: No acute abnormality of the visualized skull or soft tissues. IMPRESSION: No acute intracranial abnormality. 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 Critical results were called by Dr. Amina Lamas to ANN Dyson on 10/19/2020 at 18:14. Interpreted by: Amina Lamas DO Signed by: Amina Lamas DO 10/19/20 Final result Normal [facility] CT Head WO ContrastOrdered B y: Izzy Parul on 10-19-2020 No acute intracrania l abnormality. 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 Critical results were called by Dr. Amina Lamas to ANN Dyson on 10/19/2020 at 18:14. [facility] [employer] Work Phone: EXAMINATION: CT OF T HE HEAD WITHOUT CONTRAST 10/19/2020 3:00 pm TECHNIQUE: CT of the head was performed without the administration of intravenous contrast. Dose modulation, iterative reconstruction, and/or weight based adjustment of the mA/kV was utilized to reduce the radiation dose to as low as reasonably achievable. COMPARISON: 08/03/2020 HISTORY: ORDERING SYSTEM PROVIDED HISTORY: ams, TECHNOLOGIST PROVIDED HISTORY: ams, Decision Support Exception - unselect if not a suspected or confirmed emergency medical condition->Emergency Medical Condition (MA) FINDINGS: BRAIN/VENTRICLES: There is no acute intracranial hemorrhage, mass effect or midline shift. No abnormal extra-axial fluid collection. The bran-white differentiation is maintained without evidence of an acute infarct. There is unchanged commensurate prominence of the ventricles and sulci due to global parenchymal volume loss. There are unchanged scattered nonspecific areas of hypoattenuation within the periventricular and subcortical white matter, which likely represent chronic microvascular ischemic change. Unchanged small left pontine calcification. ORBITS: The visualized portion of the orbits demonstrate no acute abnormality. SINUSES: The visualized paranasal sinuses and mastoid air cells demonstrate no acute abnormality with chronic mucoperiosteal thickening of the left maxillary sinus. SOFT TISSUES/SKULL: No acute abnormality of the visualized skull or soft tissues. [employer] Work Phone: Rom[employer], pn Incoming Radiant Results From [email or web address] - 10/19/2020 6:20 PM EDT EXAMINATION: CT OF THE HEAD WITHOUT CONTRAST 10/19/2020 3:00 pm TECHNIQUE: CT of the head was performed without the administration of intravenous contrast. Dose modulation, iterative reconstruction, and/or weight based adjustment of the mA/kV was utilized to reduce the radiation dose to as low as reasonably achievable. COMPARISON: 08/03/2020 HISTORY: ORDERING SYSTEM PROVIDED HISTORY: ams, TECHNOLOGIST PROVIDED HISTORY: ams, Decision Support Exception - unselect if not a suspected or confirmed emergency medical condition->Emergency Medical Condition (MA) FINDINGS: BRAIN/VENTRICLES: There is no acute intracranial hemorrhage, mass effect or midline shift. No abnormal extra-axial fluid collection. The bran-white differentiation is maintained without evidence of an acute infarct. There is unchanged commensurate prominence of the ventricles and sulci due to global parenchymal volume loss. There are unchanged scattered nonspecific areas of hypoattenuation within the periventricular and subcortical white matter, which likely represent chronic microvascular ischemic change. Unchanged small left pontine calcification. ORBITS: The visualized portion of the orbits demonstrate no acute abnormality. SINUSES: The visualized paranasal sinuses and mastoid air cells demonstrate no acute abnormality with chronic mucoperiosteal thickening of the left maxillary sinus. SOFT TISSUES/SKULL: No acute abnormality of the visualized skull or soft tissues. IMPRESSION: No acute intracranial abnormality. 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 Critical results were called by Dr. Amina Lamas to ANN Dyson on 10/19/2020 at 18:14. [facility] Work Phone: [facility] Work Phone: Comp Metabolic Pr/rfx MGon 0 10-19-2020 (cont.) Normal [facility] Comment on above: Result Comment: Aver age GFR for 70 or more years old: 75 mL/min/1.73sq m Chronic Kidney Disease: <60 mL/min/1.73sq m Kidney failure: <15 mL/min/1.73sq m eGFR calculated using average adult body mass. Additional eGFR calculator available at: http://www.ClearStream.Coupay/multiple_crcl_2012.htm Performed By: #### B C #### [address] [place] [address] Change Over: Emerson Hall MD Albumin [Mass/Vol] 3.7 g/dL Normal 3.5-5.2 [facility] Comment on above: Performed By: #### B C #### [facility] [address] [place] [address] Change Over: Emerson Hall MD Albumin/Glob Ratio 1.3 Normal 1.0-2.5 [facility] Comment on above: Performed By: #### B C #### [address] [place] [address] Change Over: Emerson Hall MD Alkaline Phos 69 U/L Normal 35-104 [facility] Comment on above: Performed By: #### B C #### [facility] [address] [place], [place] [id number] Change Over: Emerson Hall MD ALT [Catalytic activity/Vol] 8 U/L Normal 5-33 [facility] Comment on above: Performed By: #### B C #### [facility] [address] [place], [place] [id number] Change Over: Emerson Hall MD Anion gap [Moles/Vol] 13 mmol/L Normal 9-17 [facility] Comment on above: Performed By: #### B C #### [facility] [address] [place], [place] [id number] Change Over: Emerson Hall MD AST [Catalytic activity/Vol] 16 U/L Normal <32 [facility] Comment on above: Performed By: #### B C #### [facility] [address] [place], [place] 1144983 Change Over: Emerson Hall MD Bilirubin [Mass/Vol] 0.30 mg/dL Normal 0.3-1.2 [facility] Comment on above: Performed By: #### B C #### [facility] [address] [place], [place] 7974783 Change Over: Emerson Hall MD BUN/CRE Ratio 18 Normal 9-20 [facility] Comment on above: Performed By: #### B C #### [facility] [address] [place], [place] 1909783 Change Over: Emerson Hall MD Calcium [Mass/Vol] 9.1 mg/dL Normal 8.6-10.4 [facility] Comment on above: Performed By: #### B C #### [facility] [address] [place], [place] 7872783 Change Over: Emerson Hall MD Chloride [Moles/Vol] 101 mmol/L Normal 98-107 [facility] Comment on above: Performed By: #### B C #### [facility] [address] [place], [place] [id number] Change Over: Emerson Hall MD CO2 [Moles/Vol] 23 mmol/L Normal 20-31 [facility] Comment on above: Performed By: #### B C #### [facility] [address] [place], [place] 7590083 Change Over: Emerson Hall MD Creatinine [Mass/Vol] 0.91 mg/dL High 0.50-0.90 [facility] Comment on above: Performed By: #### B C #### [facility] [address] [place], [place] [id number] Change Over: Emerson Hall MD GFR, Amer >60 Normal >60 [facility] Comment on above: Performed By: #### B C #### [facility] [address] [place] [address] Change Over: Emerson Hall MD GFR,non Amer 59 mL/min Low >60 [facility] Comment on above: Performed By: #### B C #### [facility] [address] [place] [address] Change Over: Emerson Hall MD Glucose [Mass/Vol] 137 mg/dL High 70-99 [facility] Comment on above: Performed By: #### B C #### [facility] [address] [place] [address] Change Over: Emerson Hall MD Potassium [Moles/Vol] 3.9 mmol/L Normal 3.7-5.3 [facility] Comment on above: Performed By: #### B C #### [facility] [address] [place], [place] 9791683 Change Over: Emerson Hall MD Protein [Mass/Vol] 6.6 g/dL Normal 6.4-8.3 [facility] Comment on above: Performed By: #### B C #### [facility] [address] [place] [address] Change Over: Emerson Hall MD Sodium [Moles/Vol] 137 mmol/L Normal 135-144 [facility] Comment on above: Performed By: #### B C #### [facility] [address] [place] [address] Change Over: Emerson Hall MD Staging: Normal [facility] Comment on above: Result Comment: Stag e 1: Some kidney damage normal GFR Stage 2: Mild kidney damage GFR 60-89 Stage 3: Moderate kidney damage GFR 30-59 Stage 4: Severe kidney damage GFR 15-29 Stage 5: Severe kidney damage GFR <15 ESRD - chronic treatment by dialysis or transplant Performed By: #### B C #### [facility] [address] [place] [address] [place] [address] Change Over: Emerson Hall MD Urea nitrogen [Mass/Vol] 16 mg/dL Normal 8-23 [facility] Comment on above: Performed By: #### B C #### [facility] [address] [place] [address] [place] [address] Change Over: Emerson Hall MD Comprehensive Metabolic Pane l w/ Reflex to MGOrdered By: Radu Worrell on 10-19-2020 Albumin [Mass/Vol] 3.7 g/dL 3.5 - 5.2 g/dL [facility] Phone: Albumin/Globulin [Mass ratio] 1.3 {ratio} [facility] Phone: ALP (Bld) [Catalytic activity/Vol] 69 U/L 35 - 104 U/L [employer] Phone: ALT [Catalytic activity/Vol] 8 U/L 5 - 33 U/L [employer] Phone: Anion gap [Moles/Vol] 13 mmol/L 9 - 17 mmol/L [employer] Phone: AST [Catalytic activity/Vol] 16 U/L <32 [employer] Phone: Bilirubin [Mass/Vol] 0.30 mg/dL 0.3 - 1 .2 mg/dL [employer] Phone: Calcium [Mass/Vol] 9.1 mg/dL 8.6 - 10. 4 mg/dL [employer] Phone: Chloride [Moles/Vol] 101 mmol/L 98 - 10 7 mmol/L [employer] Phone: CO2 [Moles/Vol] 23 mmol/L 20 - 31 mmol/L [employer] Phone: Creatinine [Mass/Vol] 0.91 mg/dL High 0.50 - 0.90 mg/dL [employer] Phone: Free PSA/Total PSA [Mass fraction] 6.6 g/dL 6.4 - 8.3 g/dL [employer] Phone: GFR >60 >60 mL/min [employer] Phone: GFR Non- 59 mL/min Low >60 [employer] Phone: Glucose [Mass/Vol] 137 mg/dL High 70 - 99 mg/dL [employer] Phone: Interpretation and review of laboratory results Abnormal [employer] Phone: Potassium [Moles/Vol] 3.9 mmol/L 3.7 - 5.3 mmol/L [employer] Phone: Sodium [Moles/Vol] 137 mmol/L 135 - 144 mmol/L [employer] Phone: Urea nitrogen (BldV) [Mass/Vol] 16 mg/dL 8 - 23 mg/dL [employer] Phone: Urea nitrogen/Creatinine (Bld) [Mass ratio] 18 [employer] Phone: EKG 12 LeadOrdered By: Katy Worrell on 10-19-2020 Atrial Rate 50 BPM [employer] Phone: P Sunflower 23 degrees [employer] Phone: P-R Interval 152 ms [employer] Phone: Q-T Interval 480 ms [employer] Phone: QRS Duration 90 ms [employer] Phone: QTc Calculation (Bazett) 437 ms [employer] Phone: R Sunflower 7 degrees [employer] Phone: T Sunflower 42 degrees [employer] Phone: Ventricular Rate 50 BPM [employer] Phone: Sinus bradycardia Possible Anterior infarct , age undetermined Abnormal ECG When compared with ECG of 03-AUG-2020 09:21, No significant change was found Confirmed by JOSE RAMOS ([id number]) on 10/19/2020 10:36:19 PM [employer] Phone: Romero, Mh[facility] Incoming E kg Results From [employer] - 10/19/2020 10:36 PM EDT Sinus bradycardia Possible Anterior infarct , age undetermined Abnormal ECG When compared with ECG of 03-AUG-2020 09:21, No significant change was found Confirmed by JOSE RAMOS ([id number]) on 10/19/2020 10:36:19 PM [employer] Phone: [employer] Phone: Laboratory - Chemistry and C hemistry - challengeOrdered By: Radu Worrell on 10-19-2020 GFR/1.73 sq M.predicted MDRD (S/P/Bld) [Vol rate/Area] [employer] Phone: Comment on above: Average GFR for 70 o r more years old: 75 mL/min/1.73sq m Chronic Kidney Disease: <60 mL/min/1.73sq m Kidney failure: <15 mL/min/1.73sq m eGFR calculated using average adult body mass. Additional eGFR calculator available at: http://www.[employer]/multiple_crcl_2012.htm Stage 1: Some kidney damage normal GFR Stage 2: Mild kidney damage GFR 60-89 Stage 3: Moderate kidney damage GFR 30-59 Stage 4: Severe kidney damage GFR 15-29 Stage 5: Severe kidney damage GFR <15 ESRD - chronic treatment by dialysis or transplant Lactic Acidon 10-19-2020 Lactate [Moles/Vol] 1.1 mmol/L Normal 0.5-2.2 [facility] Comment on above: Performed By: #### B C #### [facility] [address] [place] [address] [place] [address] Change Over: Emerson Hall MD Lactic AcidOrdered By: Katy Worrell on 10-19-2020 Lactate [Moles/Vol] 1.1 mmol/L 0.5 - 2. 2 mmol/L [facility] Work Phone: [facility] Work Phone: Lipaseon 10-19-2020 Lipase [Catalytic activity/Vol] 21 U/L Normal 13-60 [facility] Comment on above: Performed By: #### B C #### [facility] [address] [place] [address] Change Over: Emerson Hall MD LipaseOrdered By: Radu howard on 10-19-2020 Lipase [Catalytic activity/Vol] 21 U/L 13 - 60 U/L [facility] Work Phone: Microscopic UrinalysisOrdere d By: Radu Worrell on 10-19-2020 - [facility] Work Phone: Amorphous, UA NOT REPORTED None [facility] Work Phone: Bacteria, UA TRACE Abnormal None [facility] [employer] Work Phone: Casts UA NOT REPORTED /LPF [facility] Work Phone: Crystals, UA NOT REPORTED None /HPF [facility] Work Phone: Epithelial Cells UA 0 TO 2 [facility] Work Phone: Interpretation and review of laboratory results Abnormal [facility] Work Phone: Mucus, UA 1+ Abnormal None [facility] Work Phone: Other Observations UA NOT REPORTED NOT REQ. [facility] [employer] Work Phone: RBC, UA 0 TO 2 [facility] Work Phone: Renal Epithelial, UA NOT REPORTED 0 /HPF [facility] [employer] Work Phone: Trichomonas, UA NOT REPORTED None [facility] Work Phone: WBC, UA 0 TO 2 [facility] [employer] Work Phone: Yeast, UA NOT REPORTED None [facility] [employer] Work Phone: [facility] [employer] Work Phone: No Panel InformationOrdered By: Radu Worrell on 10-19-2020 [facility] [employer] Work Phone: Troponinon 10-19-2020 Troponin, High Sens 10 ng/L Normal 0-14 [facility] Comment on above: Result Comment: High Sensitivity Troponin values cannot be compared with other Troponin methodologies. Patients with high levels of Biotin oral intake (i.e >5mg/day) may have falsely decreased Troponin levels. Samples collected within 8 hours of biotin intake may require additional information for diagnosis. Performed By: #### B C #### [facility] [address] [place] [address] Change Over: Emerson Hall MD Troponin Interp. NOT REPORTED Normal [facility] Comment on above: Performed By: #### B C #### [facility] [address] [place] [address] Change Over: Emerson Hall MD Troponin T NOT REPORTED Normal <0.03 [facility] Comment on above: Performed By: #### B C #### [facility] [address] [place] [address] Change Over: Emerson Hall MD TroponinOrdered By: Radu Worrell on 10-19-2020 Troponin Interp NOT REPORTED [facility] Work Phone: Troponin T NOT REPORTED <0.03 ng/mL [facility] Work Phone: Troponin, High Sensitivity 10 ng/L 0 - 14 ng/L [facility] Work Phone: Comment on above: High Sensitivity Troponin values cannot be compared with other Troponin methodologies. Patients with high levels of Biotin oral intake (i.e >5mg/day) may have falsely decreased Troponin levels. Samples collected within 8 hours of biotin intake may require additional information for diagnosis. UA w/Reflex Cultureon 2020 Bilirubin, SemiQt,Ur SMALL Abnormal NEG [facility] Comment on above: Performed By: #### U DONNY REBOLLEDO #### [facility] [address] [place] [address] Change Over: Emerson Hall MD Blood, Urine Negative Normal NEG [facility] Comment on above: Performed By: #### U DONNY REBOLLEDO #### [facility] [address] [place] [address] Change Over: Emerson Hall MD Clarity (U) CLEAR Normal CLEAR [facility] Comment on above: Performed By: #### U JANELL REBOLLEDOO #### [facility] [address] [place] [address] Change Over: Emerson Hall MD Color (U) YELLOW Normal YEL [facility] Comment on above: Performed By: #### U JANELL REBOLLEDOO #### [facility] [address] [place], [place] 8597383 Change Over: Emerson Hall MD Glucose Ql (U) Negative Normal NEG [facility] Comment on above: Performed By: #### U AX, UMICAO #### [facility] [address] [place], [place] 1682083 Change Over: Emerson Hall MD Ketones Ql (U) 2+ Abnormal NEG [facility] Comment on above: Performed By: #### U AX, UMICAO #### [facility] [address] [place] [address] [place]. [place], [place] [id number] Change Over: Emerson Hall MD Leukocyte esterase Test strip Ql (U) Negative Normal NEG [facility] Comment on above: Performed By: #### U AX, UMICAO #### [address] [place] [address] Change Over: Emerson Hall MD Nitrite,Ur Negative Normal [facility] Comment on above: Performed By: #### U AX, UMICAO #### [address] [place] [address] Change Over: Emerson Hall MD PH,Ur 5.0 Normal 5.0-9.0 [facility] Comment on above: Performed By: #### U AX, UMICAO #### [facility] [address] [place] [address] [place] [address] Change Over: Emerson Hall MD Protein Ql (U) TRACE Abnormal NEG [facility] Comment on above: Performed By: #### U AX, UMICAO #### [facility] [address] [place] [address] [place] [place], [place] [phone] Change Over: Emerson Hall MD Spec. Groom,Ur >1.030 High 1.010-1.020 [facility] Comment on above: Performed By: #### U AX, UMICAO #### [facility] [address] [place] [address] Change Over: Emerson Hall MD Urobilinogen,Ur Normal Normal NORM [facility] Comment on above: Performed By: #### U AX, UMICAO #### [facility] [address] [place] [address] Change Over: Emerson Hall MD Comment NOT REPORTED Normal [facility] Comment on above: Performed By: #### U AX, UMICAO #### [facility] [address] [place] [address] Change Over: Emerson Hall MD Urinalysis Reflex to Culture Ordered By: Radu Worrell on 10-19-2020 Bilirubin Urine SMALL Abnormal NEGATIVE [facility] Work Phone: Color, UA YELLOW YELLOW [facility] Work Phone: Glucose, Ur Negative NEGATIVE [facility] Work Phone: Interpretation and review of laboratory results Abnormal [facility] Phone: Ketones Ql (U) 2+ Abnormal NEGATIVE [facility] Work Phone: Leukocyte esterase Test strip Ql (U) Negative NEGATIVE [facility] Phone: Nitrite, Urine Negative NEGATIVE [facility] Work Phone: pH, UA 5.0 [facility] Work Phone: Protein, UA TRACE Abnormal NEGATIVE [facility] Work Phone: Specific Groom, UA >1.030 High [facility] [employer] Work Phone: Turbidity UA CLEAR CLEAR [facility] Work Phone: Urinalysis Comments NOT REPORTED [facility] [employer] Work Phone: Urine Hgb Negative NEGATIVE [facility] Phone: Urobilinogen, Urine Normal Normal [facility] Work Phone: [facility] Work Phone: Urinalysis,Microon 1 ----- Normal [facility] Comment on above: Performed By: #### U AX, UMICAO #### [facility] [address] [place], [place] 8498483 Change Over: Emerson Hall MD Bacteria TRACE Abnormal [facility] Comment on above: Performed By: #### U AX, UMICAO #### [facility] [address] [place], [place] 3171483 Change Over: Emerson Hall MD Epithelial cells LM Ql (Urine sed) 0 TO 2 Normal 0-25 [facility] Comment on above: Performed By: #### U AX UMICAO #### [facility] [address] [place], [place] 2158483 Change Over: Emerson Hall MD Mucus Strands 1+ Abnormal [facility] Comment on above: Performed By: #### U AX UMICAO #### [facility] [address] [place] [address] Change Over: Emerson Hall MD Urine RBC's 0 TO 2 Normal 0-2 [facility] Comment on above: Performed By: #### U AX, UMICAO #### [facility] [address] [place] [address] Change Over: Emerson Hall MD Urine WBC's 0 TO 2 Normal 0-5 [facility] Comment on above: Performed By: #### U AX, UMICAO #### [facility] [address] [place], [place] 9951183 Change Over: Emerson Hall MD Amorphous sediment LM Ql (Urine sed) NOT REPORTED Normal [facility] Comment on above: Performed By: #### U AX, UMICAO #### [facility] [address] [place] [address] Change Over: Emerson Hall MD Casts NOT REPORTED Normal [facility] Comment on above: Performed By: #### U AX, UMICAO #### [facility] [address] [place], [place] 1289983 Change Over: Emerson Hall MD Crystals LM Nom (Urine sed) NOT REPORTED Normal NONE [facility] Comment on above: Performed By: #### U AX, UMICAO #### [facility] [address] [place] [address] Change Over: Emerson Hall MD Epithelial, Renal NOT REPORTED Normal 0 [facility] Comment on above: Performed By: #### U AX, UMICAO #### [facility] [address] [place] [address] [place] [address] Change Over: Emerson Hall MD Other Observations NOT REPORTED Normal NREQ [facility] Comment on above: Performed By: #### U AX, UMICAO #### [address] [place] [address] Change Over: Emerson Hall MD Trichomonas NOT REPORTED Normal NONE [facility] Comment on above: Performed By: #### U AX, UMICAO #### [facility] [address] [place] [address] [place] [address] Change Over: Emerson Hall MD Yeast NOT REPORTED Normal NONE [facility] Comment on above: Performed By: #### U AX, UMICAO #### [facility] [address] [place] [address] Dr[place], [place] [id number] Change Over: Emerson Hall MD Venous Blood Gaseson 10-19-2 021 Body Temp. 37.0 Normal [facility] Comment on above: Performed By: #### U AX, UMICAO #### [facility] [address] [place], [place] 7772483 Change Over: Emerson Hall MD HCO3 (Bld) [Moles/Vol] 28.0 mmol/L Normal 24.0-30.0 [facility] Comment on above: Performed By: #### U AX, UMICAO #### [facility] [address] [place], [place] 9307983 Change Over: Emerson Hall MD Oxygen (Bld) [Partial pressure] 24.4 mm[Hg] Low 30.0-50.0 [facility] Comment on above: Performed By: #### U AX UMICAO #### [address] [place], [place] 7483983 Change Over: Emerson Hall MD Oxygen saturation in Blood 39.6 % Low 60.0-85.0 [facility] Comment on above: Performed By: #### U AX UMICAO #### [address] [place], [place] 5153683 Change Over: Emerson Hall MD pCO2 52.9 Normal 39-55 [facility] Comment on above: Performed By: #### U AX, UMICAO #### [address] [place], [place] 3372683 Change Over: Emerson Hall MD pH (Bld) 7.342 [pH] Normal 7.32-7.42 [facility] Comment on above: Performed By: #### U AX, UMICAO #### [facility] [address] [place] [address] Dr. [place], [place] [phone] Change Over: Emerson Hall MD Positive Base Excess 1.2 mmol/L Normal 0.0-2.0 [facility] Comment on above: Performed By: #### U AX, UMICAO #### [facility] [address] [place] [address] [place] [place], [place] [id number] Change Over: Emerson Hall MD Text for Respiratory DRAWN PER ED RN Normal [facility] Comment on above: Performed By: #### U AX, UMICAO #### [facility] [address] [place], [place] 6059083 Change Over: Emerson Hall MD Arthur Test NOT REPORTED Normal [facility] Comment on above: Performed By: #### U AX, UMICAO #### [facility] [address] [place] [address] Change Over: Emerson Hall MD Carboxy Hgb NOT REPORTED Normal 0.0-5.0 [facility] Comment on above: Performed By: #### U AX, UMICAO #### [facility] [address] [place] [address] Change Over: Emerson Hall MD FIO2 NOT REPORTED Normal [facility] Comment on above: Performed By: #### U AX, UMICAO #### [facility] [address] [place] [address] Change Over: Emerson Hall MD Methemoglobin NOT REPORTED Normal 0.0-1.9 [facility] Comment on above: Performed By: #### U AX, UMICAO #### [facility] [address] [place] [address] Change Over: Emerson Hall MD Mode NOT REPORTED Normal [facility] Comment on above: Performed By: #### U AX, UMICAO #### [facility] [address] [place] [address] Change Over: Emerson Hall MD Negative Base Excess NOT REPORTED Normal 0.0-2.[address] [facility] Comment on above: Performed By: #### U AX, UMICAO #### [facility] [address] [place], [place] 4793983 Change Over: Emerson Hall MD Notification Time NOT REPORTED Normal [facility] Comment on above: Performed By: #### U AX, UMICAO #### [facility] [address] [place] [address] Change Over: Emerson Hall MD Notification: NOT REPORTED Normal [facility] Comment on above: Performed By: #### U AX, UMICAO #### [facility] [address] [place] [address] Change Over: Emerson Hall MD O2 Device/Flow/% NOT REPORTED Normal [facility] Comment on above: Performed By: #### U AX, UMICAO #### [facility] [address] [place] [address] Change Over: Emerson Hall MD Oxyhemoglobin NOT REPORTED Normal 95.0-98.0 [facility] Comment on above: Performed By: #### U AX, UMICAO #### [facility] [facility] [address] [place] [address] Change Over: Emerson Hall MD Pco2 Adj'd for Temp. NOT REPORTED Normal 39.0-55.[address] [facility] Comment on above: Performed By: #### U AX, UMICAO #### [facility] [address] [place] [address] Change Over: Emerson Hall MD PEEP/CPAP NOT REPORTED Normal [facility] Comment on above: Performed By: #### U AX, UMICAO #### [facility] [address] [place] [address] Change Over: Emerson Hall MD pH Adjst'd for Temp. NOT REPORTED Normal 7.320-7.[address] [facility] Comment on above: Performed By: #### U AX, UMICAO #### [facility] [address] [place], [place] [address] Change Over: Emerson Hall MD pO2 Adj'd for Temp. NOT REPORTED Normal 30.0-50.0 [facility] Comment on above: Performed By: #### U AX, UMICAO #### [facility] [address] [place] [address] Change Over: Emerson Hall MD PSV NOT REPORTED Normal [facility] Comment on above: Performed By: #### U AX, UMICAO #### [facility] [address] [place] [address] Change Over: Emerson Hall MD Pt. Position NOT REPORTED Normal [facility] Comment on above: Performed By: #### U AX, UMICAO #### [facility] [address] [place] [address] Change Over: Emerson Hall MD Respiratory Rate NOT REPORTED Normal [facility] Comment on above: Performed By: #### U AX, UMICAO #### [facility] [address] [place] [address] [place] [address] Change Over: Emerson Hall MD Set Rate NOT REPORTED Normal [facility] Comment on above: Performed By: #### U AX, UMICAO #### [address] [place] [address] Change Over: Emerson Hall MD Site Drawn NOT REPORTED Normal [facility] Comment on above: Performed By: #### U AX, UMICAO #### [facility] [address] [place] [address] Change Over: Emerson Hall MD Total Hb NOT REPORTED Normal 12.0-16.0 [facility] Comment on above: Performed By: #### U AX, UMICAO #### [facility] [address] [place] [address] Change Over: Emerson Hall MD Total Rate NOT REPORTED Normal [facility] Comment on above: Performed By: #### U AX, DONNY #### [facility] [address] [place] [address] Change Over: Emerson Hall MD VT NOT REPORTED Normal [facility] Comment on above: Performed By: #### U DONNY REBOLLEDO #### [facility] [address] [place] [address] Change Over: Emerson Hall MD XR CHEST PORTABLEon 10-20-19 XR CHEST PORTABLE EXAMINATION: ONE XRAY VIEW OF THE CHEST 10/19/2020 3:31 pm COMPARISON: 08/03/2020 HISTORY: ORDERING SYSTEM PROVIDED HISTORY: Decreased breath sounds bilateral bases TECHNOLOGIST PROVIDED HISTORY: Decreased breath sounds bilateral bases FINDINGS: The cardiac size is normal. Mild bibasal fibrosis. No acute infiltrates or pleural effusions are seen. Pulmonary vascularity appears normal. There is mild ectasia of the thoracic aorta. There are degenerative changes in the spine and shoulders more notably on the left.No acute bony abnormalities. The hilar structures are normal. IMPRESSION: No acute cardiopulmonary disease Interpreted by: Milton Zheng MD Signed by: Milton Zheng MD 10/19/20 Final result Normal [facility] XR CHEST PORTABLEOrdered By: Radu Worrell on 10-19-2020 No acute cardiopulmonary disease [employer] Phone: EXAMINATION: ONE XRA Y VIEW OF THE CHEST 10/19/2020 3:31 pm COMPARISON: 08/03/2020 HISTORY: ORDERING SYSTEM PROVIDED HISTORY: Decreased breath sounds bilateral bases TECHNOLOGIST PROVIDED HISTORY: Decreased breath sounds bilateral bases FINDINGS: The cardiac size is normal. Mild bibasal fibrosis. No acute infiltrates or pleural effusions are seen. Pulmonary vascularity appears normal. There is mild ectasia of the thoracic aorta. There are degenerative changes in the spine and shoulders more notably on the left.No acute bony abnormalities. The hilar structures are normal. [employer] Phone: Romero, Mhpn Incoming Radiant Results From [email or web address] - 10/19/2020 7:02 PM EDT EXAMINATION: ONE XRAY VIEW OF THE CHEST 10/19/2020 3:31 pm COMPARISON: 08/03/2020 HISTORY: ORDERING SYSTEM PROVIDED HISTORY: Decreased breath sounds bilateral bases TECHNOLOGIST PROVIDED HISTORY: Decreased breath sounds bilateral bases FINDINGS: The cardiac size is normal. Mild bibasal fibrosis. No acute infiltrates or pleural effusions are seen. Pulmonary vascularity appears normal. There is mild ectasia of the thoracic aorta. There are degenerative changes in the spine and shoulders more notably on the left.No acute bony abnormalities. The hilar structures are normal. IMPRESSION: No acute cardiopulmonary disease [employer] Phone: [employer]Reward[employer] Phone: ANION GAPon 08-05-2020 Anion gap [Moles/Vol] 8.0 mmol/L Normal 8.0-16.[address] [facility] Comment on above: Result Comment: ANIO N GAP = Sodium -(Chloride + CO2) Performed By: #### C BCWD, BMP, MG, ANION, EGFR1 #### [facility] [employer] [address] [place] [address] Anion GapOrdered By: Jack Mensah on 08-05-2020 Anion gap [Moles/Vol] 8.0 mmol/L 8.0 - 16.0 meq/L [employer] Phone: Comment on above: ANION GAP = Sodium - (Chloride + CO2) Performed at [facility] [address] [place] [address] BASIC METABOL PANELon 2020 Calcium [Mass/Vol] 9.3 mg/dL Normal 8.5-10.5 [facility] Comment on above: Performed By: #### C BCWD, BMP, MG, ANION, EGFR1 #### [facility] [address] [place] [address] Chloride [Moles/Vol] 107 mmol/L Normal 98-111 [facility] Comment on above: Performed By: #### C BCWD, BMP, MG, ANION, EGFR1 #### [facility] [address] [place] [address] CO2 [Moles/Vol] 23 mmol/L Normal 23-33 [facility] Comment on above: Performed By: #### C BCWD, BMP, MG, ANION, EGFR1 #### [facility] [employer] [address] [place] [address] Creatinine [Mass/Vol] 0.6 mg/dL Normal 0.4-1.[address] [facility] Comment on above: Performed By: #### C BCWD, BMP, MG, ANION, EGFR1 #### [facility] [employer] [address] [place] [address] Glucose [Mass/Vol] 101 mg/dL Normal 70-108 [facility] Comment on above: Performed By: #### C BCWD, BMP, MG, ANION, EGFR1 #### [facility] [address] [place] [address] Potassium [Moles/Vol] 3.8 mmol/L Normal 3.5-5.[address] [facility] Comment on above: Performed By: #### C BCWD, BMP, MG, ANION, EGFR1 #### [facility] [employer] [address] [address] Sodium [Moles/Vol] 138 mmol/L Normal 135-145 [facility] Comment on above: Performed By: #### C BCWD, BMP, MG, ANION, EGFR1 #### [facility] [address] [address] Urea nitrogen [Mass/Vol] 12 mg/dL Normal 7-22 [facility] Comment on above: Performed By: #### C BCWD, BMP, MG, ANION, EGFR1 #### [facility] [employer] [address] [place] [address] Basic Metabolic PanelOrdered By: Jack Mensah on 08-05-2020 Calcium [Mass/Vol] 9.3 mg/dL 8.5 - 10. 5 mg/dL [employer] Phone: Comment on above: Performed at [facility] [address] [place] [address] Chloride [Moles/Vol] 107 mmol/L 98 - 11 1 meq/L [employer] Phone: CO2 [Moles/Vol] 23 mmol/L 23 - 33 meq/L [facility] Work Phone: Creatinine [Mass/Vol] 0.6 mg/dL 0.4 - 1.2 mg/dL [employer] Phone: Glucose [Mass/Vol] 101 mg/dL 70 - 108 mg/dL [employer] Phone: Potassium [Moles/Vol] 3.8 mmol/L 3.5 - 5.2 meq/L [employer] Phone: Sodium [Moles/Vol] 138 mmol/L 135 - 145 meq/L [employer] Phone: Urea nitrogen (BldV) [Mass/Vol] 12 mg/dL 7 - 22 mg/dL [employer] Phone: CBC Auto DifferentialOrdered By: Jack Mensah on 08-05-2020 Basophils (Bld) [#/Vol] 0.1 10*3/uL [employer] Phone: Basophils/100 WBC (Bld) 1.4 % [employer] Phone: Eosinophils Absolute 0.3 [employer] Phone: Eosinophils/100 WBC (Bld) 3.3 % [employer] Phone: Erythrocyte distribution width (RBC) [Ratio] 13.2 % 11.5 - 14.5 % [employer] Phone: Erythrocyte distribution width (RBC) [Ratio] 47.8 fL High 35.0 - 45.0 fL [employer] Phone: Hematocrit (Bld) [Volume fraction] 42.3 % 37.0 - 47.0 % [employer] Phone: Hemoglobin.gastrointes tinal spec 1 Ql (Stl) 13.1 [email or web address] Work Phone: Immature Grans (Abs) 0.[address] [facility] [employer] Work Phone: Immature granulocytes/100 WBC (Bld) 0.5 % [employer] Work Phone: Interpretation and review of laboratory results Abnormal [employer] Phone: Lymphocytes Absolute 2.3 [employer] Phone: Lymphocytes/100 WBC (Bld) 29.4 % [employer] Phone: MCH (RBC) [Entitic mass] 30.5 pg 26.0 - 33.0 pg [employer] Work Phone: MCHC (RBC) [Mass/Vol] 31.0 g/dL Low [employer]ricia [employer] Work Phone: MCV (RBC) [Entitic vol] 98.6 fL 81.0 - 99.0 fL [employer] Phone: Monocytes Absolute 0.7 [employer] Work Phone: Monocytes/100 WBC (Bld) 9.4 % [employer] Work Phone: nRBC 0 /100 wbc [employer] Phone: Comment on above: Performed at [facility] [address] [place] [address] Platelet mean volume (Bld) [Entitic vol] 8.9 fL Low 9.4 - 12.4 fL [employer] Phone: Platelets (Bld) [#/Vol] 242 10*3/uL [employer] Work Phone: RBC (Bld) [#/Vol] 4.29 10*6/uL [employer] Work Phone: Segmented neutrophils/100 WBC (Bld) 56 % [employer] Work Phone: Segs Absolute 4.3 [employer] Work Phone: WBC (Bld) [#/Vol] 7.7 10*3/uL [employer] Work Phone: CBC WITH DIFFERENTIALon 07-10 ABS BASOPHILS 0.1 thou/mm3 Normal 0.0-0.1 [facility] Comment on above: Performed By: #### C BCWD, BMP, MG, ANION, EGFR1 #### [address] [address] ABS EOSINOPHILS 0.3 thou/mm3 Normal 0.0-0.4 [facility] Comment on above: Performed By: #### C BCWD, BMP, MG, ANION, EGFR1 #### [address] [address] ABS IMMATURE GRANS (IG) 0.04 thou/mm3 Normal 0.00-0.07 [facility] Comment on above: Performed By: #### C BCWD, BMP, MG, ANION, EGFR1 #### [address] [address] ABS LYMPHOCYTES 2.3 thou/mm3 Normal 1.0-4.8 [facility] Comment on above: Performed By: #### C BCWD, BMP, MG, ANION, EGFR1 #### [address] [address] ABS MONOCYTES 0.7 thou/mm3 Normal 0.4-1.3 [facility] Comment on above: Performed By: #### C BCWD, BMP, MG, ANION, EGFR1 #### [address] [address] ABS NEUTROPHILS 4.3 thou/mm3 Normal 1.8-7.7 [facility] Comment on above: Performed By: #### C BCWD, BMP, MG, ANION, EGFR1 #### [facility] [address] [address] Basophils/100 WBC (Bld) 1.4 % Normal [facility] Comment on above: Performed By: #### C BCWD, BMP, MG, ANION, EGFR1 #### [facility] [address] [address] Eosinophils/100 WBC (Bld) 3.3 % Normal [facility] Comment on above: Performed By: #### C BCWD, BMP, MG, ANION, EGFR1 #### [facility] [employer] [address] [place] [address] Erythrocyte distribution width (RBC) [Ratio] 13.2 % Normal 11.5-14.5 [facility] Comment on above: Performed By: #### C BCWD, BMP, MG, ANION, EGFR1 #### [facility] [address] [place] [address] Hematocrit (Bld) [Volume fraction] 42.3 % Normal 37.0-47.0 [facility] Comment on above: Performed By: #### C BCWD, BMP, MG, ANION, EGFR1 #### [address] [address] Hemoglobin (Bld) [Mass/Vol] 13.1 g/dL Normal 12.0-16.0 [facility] Comment on above: Performed By: #### C BCWD, BMP, MG, ANION, EGFR1 #### [address] [address] IMMATURE GRANS (IG) 0.5 % Normal [facility] Comment on above: Performed By: #### C BCWD, BMP, MG, ANION, EGFR1 #### [address] [address] Lymphocytes/100 WBC (Bld) 29.4 % Normal [facility] Comment on above: Performed By: #### C BCWD, BMP, MG, ANION, EGFR1 #### [address] [address] MCH (RBC) [Entitic mass] 30.5 pg Normal 26.0-33.0 [facility] Comment on above: Performed By: #### C BCWD, BMP, MG, ANION, EGFR1 #### [address] [address] MCHC (RBC) [Mass/Vol] 31.0 g/dL Low 32.2-35.[address] [facility] Comment on above: Performed By: #### C BCWD, BMP, MG, ANION, EGFR1 #### [address] [address] MCV (RBC) [Entitic vol] 98.6 fL Normal 81.0-99.0 [facility] Comment on above: Performed By: #### C BCWD, BMP, MG, ANION, EGFR1 #### [facility] [employer] [address] [address] Monocytes/100 WBC (Bld) 9.4 % Normal [facility] Comment on above: Performed By: #### C BCWD, BMP, MG, ANION, EGFR1 #### [facility] [employer] [address] [place] [address] Neutrophils/100 WBC (Bld) 56.0 % Normal [facility] Comment on above: Performed By: #### C BCWD, BMP, MG, ANION, EGFR1 #### [place] [address] NRBC 0 /100 wbc Normal [facility] Comment on above: Performed By: #### C BCWD, BMP, MG, ANION, EGFR1 #### [address] [address] PLATELET 242 thou/mm3 Normal 130-400 [facility] Comment on above: Performed By: #### C BCWD, BMP, MG, ANION, EGFR1 #### [address] [address] Platelet mean volume (Bld) [Entitic vol] 8.9 fL Low 9.4-12.4 [facility] Comment on above: Performed By: #### C BCWD, BMP, MG, ANION, EGFR1 #### [facility] [employer] [address] [address] RBC 4.29 mill/mm3 Normal 4.20-5.40 [facility] Comment on above: Performed By: #### C BCWD, BMP, MG, ANION, EGFR1 #### [facility] [address] [address] RDW-SD 47.8 fL High 35.0-45.0 [facility] Comment on above: Performed By: #### C BCWD, BMP, MG, ANION, EGFR1 #### [facility] [employer] [address] [place] [address] WBC 7.7 thou/mm3 Normal 4.8-10.8 [facility] Comment on above: Performed By: #### C BCWD, BMP, MG, ANION, EGFR1 #### [facility] [address] [place] [address] Culture, Reflexed, UrineOrde red By: Darien Ferrara on 08-05-2020 Interpretation and review of laboratory results Abnormal [employer] Phone: Organism Mixed Growth Abnormal [employer] Phone: Urine Culture Reflex Mixed growth. The mixture of organisms present represents both organisms that may cause urinary tract infections and organisms that are not a common cause of urinary tract infections and are possibly skin hermilo or distal urethral hermilo. Abnormal [employer] Phone: Source: urine, clean catch Site: Current Antibiotics: not stated [employer] Phone: GFR, ESTIMATEDon 08-05-2020 GFR/1.73 sq M.predicted MDRD (S/P/Bld) [Vol rate/Area] mL/min/{1.73_m2} Normal [facility] Comment on above: Result Comment: Stag e Description GFR, ml/min/1.73 m2 - At increased risk > or = 60 (with chronic kidney disease risk factors) 1 Normal or increased GFR > or = 90 2 Mildly or decreased GFR 60 - 89 3 Moderately decreased GFR 30 - 59 4 Severely decreased GFR 15 - 29 5 Kidney failure <15 (or dialysis) Estimated GFR calculated using abbreviated MDRD formula as recommended by National Kid[employer] Foundation. Calculation based upon serum creatinine and adjusted for age, gender & race. Meme. Internal Med., Vol. 139 (2) pg 137-147. Performed By: #### C BCWD, BMP, MG, ANION, EGFR1 #### [facility] [address] [place] [address] GLUCOSE POCon 08-05-2020 Glucose [Mass/Vol] 88 mg/dL Normal 70-108 [facility] Comment on above: Performed By: #### P OCGL #### [facility] [address] [place] [address] Glomerular Filtration Rate, EstimatedOrdered By: Jack Mensah on 08-05-2020 GFR/1.73 sq M.predicted MDRD (S/P/Bld) [Vol rate/Area] mL/min/{1.73_m2} ml/min/1.73m 2 [employer] Phone: Comment on above: Stage Description GF R, ml/min/1.73 m2 - At increased risk > or = 60 (with chronic kidney disease risk factors) 1 Normal or increased GFR > or = 90 2 Mildly or decreased GFR 60 - 89 3 Moderately decreased GFR 30 - 59 4 Severely decreased GFR 15 - 29 5 Kidney failure <15 (or dialysis) Estimated GFR calculated using abbreviated MDRD formula as recommended by National Kidney Foundation. Calculation based upon serum creatinine and adjusted for age, gender & race. Meme. Internal Med., Vol. 139 (2) pg 137-147. Performed at [facility] [address] [place] [address] MAGNESIUMon 08-05-2020 Magnesium [Mass/Vol] 2.0 mg/dL Normal 1.6-2.4 [facility] Comment on above: Performed By: #### C BCWD, BMP, MG, ANION, EGFR1 #### [employer] [address] [place] [address] MagnesiumOrdered By: Jack Mensah on 08-05-2020 Magnesium [Mass/Vol] 2.0 mg/dL 1.6 - 2 .4 mg/dL [employer] Phone: Comment on above: Performed at [facility] [address] [place] [address] POCT GlucoseOrdered By: Lexie Garcia on 08-05-2020 Glucose [Mass/Vol] 88 mg/dL 70 - 108 mg/dl [employer] Phone: Comment on above: Performed at [facility] [address] [place] [address] MRI BRAIN W WO CONTRASTOrder ed By: Darien Ferrara on 08-04-2020 1. No evidence of an acute infarct. 2. Mild severity chronic small vessel ischemic changes. 3. Global volume loss. 4. Numerous old bilateral microhemorrhages. This report has been created using voice recognition software. It may contain minor errors which are inherent in voice recognition technology. Final report electronically signed by Dr. Gracie Kruse on 08/04/2020 1:28 PM [employer] Phone: Romero, Wcoh Incoming Radiant Results From [email or web address] - 08/04/2020 1:30 PM EDT PROCEDURE: MRI BRAIN W WO CONTRAST CLINICAL INFORMATIONSuspected new onset seizure disorder.. COMPARISON: No prior study. TECHNIQUE: Multiplanar and multiple spin echo T1 and T2-weighted images were obtained through the brain before and after the administration of intravenous contrast. Additional sequences include coronal high-resolution FLAIR and coronal T2-weighted images through the temporal lobes. FINDINGS: The diffusion-weighted images are normal. The brain volume is mildly reduced.There are no intra-or extra-axial collections. There is no hydrocephalus, midline shift or mass effect. On the FLAIR and T2-weighted sequences, there is mild signal hyperintensity scattered in the white matter of the brain. This is most consistent with mild severity chronic small vessel ischemic changes. 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 There is symmetric temporal lobe and hippocampal volume loss. On the gradient echo T2-weighted images, there are numerous foci of microhemorrhages scattered throughout both cerebral hemispheres. There is no abnormal enhancement in the brain. The major intracranial vascular flow voids are present. The midline craniocervical junction structures are normal. The brainstem and pituitary gland are normal. IMPRESSION: 1. No evidence of an acute infarct. 2. Mild severity chronic small vessel ischemic changes. 3. Global volume loss. 4. Numerous old bilateral microhemorrhages. This report has been created using voice recognition software. It may contain minor errors which are inherent in voice recognition technology. Final report electronically signed by Dr. Gracie Kruse on 08/04/2020 1:28 PM [employer] Phone: REFLEX CULT URon 08-04-2020 REFLEX CULT UR MICROBIOLOGY REPORT [facility], [address] [place] [address], [address] PATIENT: LILLIANA PATEL LOCATION: [address] [place], [place] [id number] -A : 1940 AGE: 79 SEX: F ADM: 08/04/20 Att. Physician: DARLYN GARCIA Order Id: [id number] Req. Physician: DARIEN FERRARA Source: urine, clean catch Site: Collected: 08/04/20 06:48 Current Antibiotics: not stated Antibiotics comment: STATUS OF ORDERED AND REPORTED TESTS REFLEX CULT UR FINAL 08/05/20 REFLEX CULT UR FINAL 08/05/20 10:32 08/05/20 Mixed growth. The mixture of organisms present represents both organisms that may cause urinary tract infections and organisms that are not a common cause of urinary tract infections and are possibly skin hermilo or distal urethral hermilo. Organism 00 Mixed Growth Normal [facility] Comment on above: Performed By: #### U RCS2 #### [facility] [address] [place] [address] T4 (FREE)on 08-04-2020 T4 (FREE) 1.00 ng/dL Normal 0.93-1.76 [facility] Comment on above: Performed By: #### C BCWD, BMP, MG, ANION, EGFR1 #### [facility] [address] [place] [address] T4, FreeOrdered By: Shirley Ferrara on 08-04-2020 Free T4 [Mass/Vol] 1 ng/dL 0.93 - 1. 76 ng/dL [employer] Work Phone: Comment on above: Performed at [email or web address] [address] [place] [address] TSH W/ REFLEX FT4on 08-05-19 21 TSH THIRD GENERATION 5.250 uIU/mL High 0.400-4.200 [facility] Comment on above: Performed By: #### T SHRF, VB12F, FT4 #### [facility] [address] [place] [address] TSH with ReflexOrdered By: Jessica Ferrara on 08-04-2020 Interpretation and review of laboratory results Abnormal [employer] Work Phone: TSH Qn 5.250 m[IU]/L High [facility] Work Phone: Comment on above: Performed at [facility] [address] [place] [address] UA WITH MICROSCOPICon 2020 BACTERIA FEW Normal FEW/NONE SEEN [facility] Comment on above: Performed By: #### U RCS2 #### [facility] [address] [place] [address] CASTS NONE SEEN Normal NONE SEEN [facility] Comment on above: Performed By: #### U RCS2 #### [facility] [address] [place] [address] CASTS 2 NONE SEEN Normal NONE SEEN [facility] Comment on above: Performed By: #### U RCS2 #### [facility] [address] [place] [address] Crystals LM Nom (Urine sed) NONE SEEN Normal NONE SEEN [facility] Comment on above: Performed By: #### U RCS2 #### [facility] [address] [place] [address] EPITHELIAL 3 /hpf Normal 3-5/hpf [facility] Comment on above: Performed By: #### U RCS2 #### [facility] [address] [place] [address] MISCELLANEOUS 2 NONE SEEN Normal [facility] Comment on above: Performed By: #### U RCS2 #### [facility] [address] [place] [address] RBC 0 /hpf Normal 0-2/hpf [facility] Comment on above: Performed By: #### U RCS2 #### [facility] [address] [place] [address] RENAL EPITHELIAL NONE SEEN Normal NONE SEEN [facility] Comment on above: Performed By: #### U RCS2 #### [facility] [address] [place] [address] WBC 25 /hpf Normal 0-4/hpf [facility] Comment on above: Performed By: #### U RCS2 #### [facility] [address] [place] [address] [place] [address] YEAST NONE SEEN Normal NONE SEEN [facility] Comment on above: Performed By: #### U RCS2 #### [facility] [address] [place] [address] Bilirubin Ql (U) Negative Normal NEGATIVE [facility] Comment on above: Performed By: #### U RCS2 #### [facility] [address] [place] [address] CHARACTER CLEAR Normal CLEAR-SL CLOUD [facility] Comment on above: Performed By: #### U RCS2 #### [facility] [address] [place] [address], [place] [address] Color (U) YELLOW Normal STRAW-YELLOW [facility] Comment on above: Performed By: #### U RCS2 #### [facility] [address] [place] [address] Glucose Ql (U) Negative Normal NEGATIVE [facility] Comment on above: Performed By: #### U RCS2 #### [facility] [address] [place] [id number] Hemoglobin Ql (U) TRACE Abnormal NEGATIVE [facility] Comment on above: Performed By: #### U RCS2 #### [facility] [address] [place] [address] Ketones Ql (U) Negative Normal NEGATIVE [facility] Comment on above: Performed By: #### U RCS2 #### [facility] [address] [place] [address] LEUKOCYTES LARGE Abnormal NEGATIVE [facility] Comment on above: Performed By: #### U RCS2 #### [facility] [address] [place] [address] Nitrite Ql (U) Negative Normal NEGATIVE [facility] Comment on above: Performed By: #### U RCS2 #### [facility] [address] [place] [address], [place] [address] pH (U) 7.0 [pH] Normal 5.0 - 9.0 [facility] Comment on above: Performed By: #### U RCS2 #### [facility] [address] [place] [address] Protein Ql (U) Negative Normal NEGATIVE [facility] Comment on above: Performed By: #### U RCS2 #### [facility] [address] [place] [address]66 Specific gravity (U) [Rel density] 1.012 Normal 1.002-1.030 [facility] Comment on above: Performed By: #### U RCS2 #### [employer] [address] [place] [address] Urobilinogen Qn (U) 0.2 {Kannan'U}/dL Normal 0.0 - 1. 0 [facility] Comment on above: Performed By: #### U RCS2 #### [employer] [address] [place] [address] Urine with Reflexed MicroOrd ered By: Darien Ferrara on 08-04-2020 Bacteria, UA FEW FEW/NONE SEEN /hpf [employer] Work Phone: Bilirubin Urine Negative NEGATIVE [facility] Work Phone: Blood, Urine TRACE Abnormal NEGATIVE [employer] Work Phone: CASTS 2 NONE SEEN NONE SEEN /lpf [employer] Work Phone: Casts UA NONE SEEN NONE SEEN /lpf [employer] Work Phone: Character, Urine CLEAR CLEAR-SL CLOUD [employer] Work Phone: Color, UA YELLOW STRAW-YELLOW [employer] Work Phone: Crystals, UA NONE SEEN NONE SEEN [employer] Work Phone: Epithelial Cells, UA 3-5 3-5/hpf /hpf [facility] Work Phone: Glucose, Ur Negative NEGATIVE mg/dl [employer] Work Phone: Interpretation and review of laboratory results Abnormal [employer] Work Phone: Ketones Ql (U) Negative NEGATIVE [email or web address] Work Phone: Leukocyte esterase Test strip Ql (U) LARGE Abnormal NEGATIVE [employer] Work Phone: MISCELLANEOUS 2 NONE SEEN [facility] Work Phone: Comment on above: Performed at [facility] [address] [place] [address] Nitrite, Urine Negative NEGATIVE [employer] Work Phone: pH, UA 7.0 [employer] Work Phone: Protein, UA Negative NEGATIVE [employer] Work Phone: RBC, UA 0-2 0-2/hpf /hpf [employer] Work Phone: Renal Epithelial, UA NONE SEEN NONE SEEN [employer] Work Phone: Specific Groom, Urine 1.012 [employer] Work Phone: Urobilinogen, Urine 0.2 [employer] Work Phone: WBC, UA 25-50 0-4/hpf /hpf [employer] Work Phone: Yeast, UA NONE SEEN NONE SEEN [employer] Phone: VITAMIN B12 FOLATEon 021 Cobalamin (Vitamin B12) [Mass/Vol] 1839 pg/mL High 211-911 [facility] Comment on above: Performed By: #### C BCWD, BMP, MG, ANION, EGFR1 #### [employer] [address] [place] [address] FOLATE 14.6 ng/mL Normal 4.8-24.2 [facility] Comment on above: Performed By: #### C BCWD, BMP, MG, ANION, EGFR1 #### [employer] [address] [place] [address] Vitamin B12 & folateOrdered By: Darien Ferrara on 08-04-2020 Cobalamin (Vitamin B12) [Mass/Vol] 1839 pg/mL High 211 - 911 pg/mL [employer] Work Phone: Folate 14.6 ng/mL 4.8 - 24.2 ng/mL [employer] Phone: Comment on above: Performed at [facility] [address] [place] [address] Interpretation and review of laboratory results Abnormal [employer] Work Phone: VL DUP UPPER EXTREMITY VENOU S RIGHTon 05-13-2020 [facility] Upper Extremities Veins Procedure Patient Name DANA Date of Study 05/13/2020 LILLIANA B Date of 1940 Gender Female Age 79 year(s) Race Room Number Corporate ID [id number] # Patient Acct [id number] # MR # [id number] Front Clerk CELSA Mensah [facility] Interpreting Physician Reymundo Barbosa MD Referring Referring Physician MAXIMILIANO CALDERON Nurse Practitioner Additional Comments Results were reported to Dr. Nevarez 05/13/2020 @ 11:58 AM. Procedure Type of Study: Veins: Upper Extremities Veins, Venous Scan Upper Right. Indications for Study:Pain and Arm swelling. Patient Status:Out Patient. Technical Quality:Adequate visualization. Conclusions Summary Negative for acute DVT. Signature Findings: Right Impression: Right internal jugular, subclavian, axillary, brachial, ulnar, radial, cephalic and basilic veins are compressible with normal doppler responses. Velocities are measured in cm/s ; Diameters are measured in cm Right UE Vein Measurements 2D Measurements + +-------- --+ +---- ------+ !Location !Visualized!Compressibi lity!Thrombosis! + +-------- --+ +---- ------+ !Prox IJV !Yes !Yes !None ! + +-------- --+ +---- ------+ !Dist IJV !Yes !Yes !None ! + +-------- --+ +---- ------+ !Prox SCV !Yes !Yes !None ! + +-------- --+ +---- ------+ !Dist SCV !Yes !Yes !None ! + +-------- --+ +---- ------+ !Innominate !Yes ! ! ! + +-------- --+ +---- ------+ !Prox Axillary !Yes !Yes !None ! + +-------- --+ +---- ------+ !Dist Axillary !Yes !Yes !None ! + +-------- --+ +---- ------+ !Prox Brachial !Yes !Yes !None ! + +-------- --+ +---- ------+ !Dist Brachial !Yes !Yes !None ! + +-------- --+ +---- ------+ !Prox Radial !Yes !Yes !None ! + +-------- --+ +---- ------+ !Dist Radial !Yes !Yes !None ! + +-------- --+ +---- ------+ !Prox Ulnar !Yes !Yes !None ! + +-------- --+ +---- ------+ !Dist Ulnar !Yes !Yes !None ! + +-------- --+ +---- ------+ !Basilic at UA !Yes !Yes !None ! + +-------- --+ +---- ------+ !Basilic at AF !Yes !Yes !None ! + +-------- --+ +---- ------+ !Basilic at LA !Yes !Yes !None ! + +-------- --+ +---- ------+ !Cephalic at UA !Yes !Yes !None ! + +-------- --+ +---- ------+ !Cephalic at AF !Yes !Yes !None ! + +-------- --+ +---- ------+ !Cephalic at LA !Yes !Yes !None ! + +-------- --+ +---- ------+ Doppler Measurements + ---+ ----+ ------+ !Location !Signal !Reflux ! + ---+ ----+ ------+ !IJV !Phasic ! ! + ---+ ----+ ------+ !SCV !Phasic ! ! + ---+ ----+ ------+ !Axillary !Phasic ! ! + ---+ ----+ ------+ !Brachial !Phasic ! ! + ---+ ----+ ------+ [facility] [place], [place] Romero, Sveta Incoming Cardio Results From [facility]/ - 05/13/2020 12:29 PM [facility] Vascular Upper Extremities Veins Procedure Patient Name DANA Date of Study 05/13/2020 LILLIANA Salmeron Date of 1940 Gender Female Age 79 year(s) Race Room Number Corporate ID [id number] # Patient Acct [id number] # MR # [id number] Front Clerk Rodrick, RVT Karen Son T Interpreting Physician Reymundo Barbosa MD Referring Referring Physician MAXIMILIANO CALDERON Nurse Practitioner Additional Comments Results were reported to Dr. Nevarez 05/13/2020 @ 11:58 AM. Procedure Type of Study: Veins: Upper Extremities Veins, Venous Scan Upper Right. Indications for Study:Pain and Arm swelling. Patient Status:Out Patient. Technical Quality:Adequate visualization. Conclusions Summary Negative for acute DVT. Signature Findings: Right Impression: Right internal jugular, subclavian, axillary, brachial, ulnar, radial, cephalic and basilic veins are compressible with normal doppler responses. Velocities are measured in cm/s ; Diameters are measured in cm Right UE Vein Measurements 2D Measurements + +-------- --+ +---- ------ + !Location !Visualized!Compressibi lity!Thrombosis! + +-------- --+ +---- ------ + !Prox IJV !Yes !Yes !None ! + +-------- --+ +---- ------ + !Dist IJV !Yes !Yes !None ! + +-------- --+ +---- ------ + !Prox SCV !Yes !Yes !None ! + +-------- --+ +---- ------ + !Dist SCV !Yes !Yes !None ! + +-------- --+ +---- ------ + !Innominate !Yes ! ! ! + +-------- --+ +---- ------ + !Prox Axillary !Yes !Yes !None ! + +-------- --+ +---- ------ + !Dist Axillary !Yes !Yes !None ! + +-------- --+ +---- ------ + !Prox Brachial !Yes !Yes !None ! + +-------- --+ +---- ------ + !Dist Brachial !Yes !Yes !None ! + +-------- --+ +---- ------ + !Prox Radial !Yes !Yes !None ! + +-------- --+ +---- ------ + !Dist Radial !Yes !Yes !None ! + +-------- --+ +---- ------ + !Prox Ulnar !Yes !Yes !None ! + +-------- --+ +---- ------ + !Dist Ulnar !Yes !Yes !None ! + +-------- --+ +---- ------ + !Basilic at UA !Yes !Yes !None ! + +-------- --+ +---- ------ + !Basilic at AF !Yes !Yes !None ! + +-------- --+ +---- ------ + !Basilic at LA !Yes !Yes !None ! + +-------- --+ +---- ------ + !Cephalic at UA !Yes !Yes !None ! + +-------- --+ +---- ------ + !Cephalic at AF !Yes !Yes !None ! + +-------- --+ +---- ------ + !Cephalic at LA !Yes !Yes !None ! + +-------- --+ +---- ------ + Doppler Measurements + ---+ ----+ ------ + !Location !Signal !Reflux ! + ---+ ----+ ------ + !IJV !Phasic ! ! + ---+ ----+ ------ + !SCV !Phasic ! ! + ---+ ----+ ------ + !Axillary !Phasic ! ! + ---+ ----+ ------ + !Brachial !Phasic ! ! + ---+ ----+ ------ + [facility] CBC Auto Differentialon 02-08 Basophils (Bld) [#/Vol] 0.10 10*3/uL [facility] Basophils/100 WBC (Bld) 1 % 0 - 2 % [facility] [place] Differential Type NOT REPORTED [place] Eosinophils (Bld) [#/Vol] 0.25 10*3/uL [facility] Eosinophils/100 WBC (Bld) 3 % 1 - 4 % [facility] Erythrocyte distribution width (RBC) [Ratio] 12.9 % 11.8 - 14.4 % [facility] Hematocrit (Bld) [Volume fraction] 42.7 % 36.3 - 47.1 % [facility] Hemoglobin (Bld) [Mass/Vol] 13.5 g/dL 11.9 - 15.1 g/dL [facility] Immature granulocytes (Bld) [#/Vol] 1 % High 0 [facility] Immature granulocytes (Bld) [#/Vol] 0.04 10*3/uL [facility] Interpretation and review of laboratory results Abnormal [place] Lymphocytes (Bld) [#/Vol] 3.21 10*3/uL [place] Lymphocytes/100 WBC (Bld) 39 % 24 - 43 % [place] MCH (RBC) [Entitic mass] 31.0 pg 25.2 - 33.5 pg [place] MCHC (RBC) [Mass/Vol] 31.6 g/dL 28.4 - 34.8 g/dL [place] MCV (RBC) [Entitic vol] 97.9 fL 82.6 - 102.9 fL [place] Monocytes (Bld) [#/Vol] 0.62 10*3/uL [place] Monocytes/100 WBC (Bld) 8 % 3 - 12 % [place] Platelet mean volume (Bld) [Entitic vol] 9.4 fL 8.1 - 13.5 fL [place] Platelets (Bld) [#/Vol] 250 10*3/uL [place] Platelets (Bld) [#/Vol] NOT REPORTED [place] RBC (Bld) [#/Vol] 4.36 10*6/uL 3.95 - 5.1 1 m/uL [place] RBC morphology finding Nom (Bld) NOT REPORTED [place] Segmented neutrophils/100 WBC (Bld) 48 % 36 - 65 % [place] Segs Absolute 4.09 [place] WBC (Bld) [#/Vol] 0.0 10*3/uL 0.0 per 10 0 WBC [place] WBC (Bld) [#/Vol] 8.3 10*3/uL [place] WBC Morphology NOT REPORTED [place] Comprehensive Metabolic Pane uriel 02-25-2020 Albumin [Mass/Vol] 3.9 g/dL 3.5 - 5.2 g/dL [place] Albumin/Globulin [Mass ratio] 1.6 {ratio} [place] ALP [Catalytic activity/Vol] 60 U/L 35 - 104 U/L [place] ALT [Catalytic activity/Vol] 7 U/L 5 - 33 U/L [place] Anion gap [Moles/Vol] 7 mmol/L Low 9 - 17 mmol/L [place] AST [Catalytic activity/Vol] 14 U/L <32 [place] Bilirubin Ql (U) 0.52 mg/dL 0.3 - 1.2 mg/dL [place] Bun/Cre Ratio 11 [place] Calcium [Mass/Vol] 9.7 mg/dL 8.6 - 10. 4 mg/dL [place] Chloride [Moles/Vol] 105 mmol/L 98 - 10 7 mmol/L [place] CO2 [Moles/Vol] 27 mmol/L 20 - 31 mmol/L [place] Creatinine [Mass/Vol] 0.7 mg/dL 0.5 - 0.9 mg/dL [place] GFR >60 >60 mL/min [place] GFR Non- >60 >60 mL/min [place] Glucose [Mass/Vol] 95 mg/dL 70 - 99 mg/dL [place] Interpretation and review of laboratory results Abnormal [place] Potassium [Moles/Vol] 5.0 mmol/L 3.7 - 5.3 mmol/L [place] Protein [Mass/Vol] 6.3 g/dL Low 6.4 - 8.3 g/dL [place] Sodium [Moles/Vol] 139 mmol/L 135 - 144 mmol/L [place] Urea nitrogen [Mass/Vol] 8 mg/dL 8 - 23 mg/dL [place] Lipid Panelon 02-25-2020 Cholesterol [Mass/Vol] 162 mg/dL <200 [place] Comment on above: Cholesterol Guidelines: <200 Desirable 200-240 Borderline >240 Undesirable Cholesterol in HDL [Mass/Vol] 60 mg/dL >40 [place] Comment on above: HDL Guidelines: <40 Undesirable 40-59 Borderline >59 Desirable Cholesterol in LDL [Mass/Vol] 88 mg/dL 0 - 130 mg/dL [place] Comment on above: LDL Guidelines: <100 Desirable 100-129 Near to/above Desirable 130-159 Borderline >159 Undesirable Direct (measured) LDL and calculated LDL are not interchangeable tests. Cholesterol in VLDL [Mass/Vol] NOT REPORTED 1 - 30 mg/dL [place] Cholesterol.total/Chol esterol in HDL [Mass ratio] 2.7 {ratio} <5 [place] Triglyceride [Mass/Vol] 68 mg/dL <150 [place] Comment on above: Triglyceride Guidelines: <150 Desirable 150-199 Borderline 200-499 High >499 Very high Based on AHA Guidelines for fasting triglyceride, January 2012. Metabolic Panelon 02-25-2020 GFR/1.73 sq M predicted among non-blacks MDRD (S/P/Bld) [Vol rate/Area] [place] Comment on above: Stage 1: Some kidney damage normal GFR Stage 2: Mild kidney damage GFR 60-89 Stage 3: Moderate kidney damage GFR 30-59 Stage 4: Severe kidney damage GFR 15-29 Stage 5: Severe kidney damage GFR <15 ESRD - chronic treatment by dialysis or transplant Average GFR for 70 o r more years old: 75 mL/min/1.73sq m Chronic Kidney Disease: <60 mL/min/1.73sq m Kidney failure: <15 mL/min/1.73sq m eGFR calculated using average adult body mass. Additional eGFR calculator available at: http://www.[employer]/multiple_crcl_2012.htm CBC Auto Differentialon 10-08 Basophils (Bld) [#/Vol] 0.07 10*3/uL [place] Basophils/100 WBC (Bld) 1 % 0 - 2 % [place] Differential Type NOT REPORTED [place] Eosinophils (Bld) [#/Vol] 0.20 10*3/uL [place] Eosinophils/100 WBC (Bld) 2 % 1 - 4 % [place] Erythrocyte distribution width (RBC) [Ratio] 13.2 % 11.8 - 14.4 % [place] Hematocrit (Bld) [Volume fraction] 43.8 % 36.3 - 47.1 % [place] Hemoglobin (Bld) [Mass/Vol] 13.6 g/dL 11.9 - 15.1 g/dL [place] Immature granulocytes (Bld) [#/Vol] 1 % High 0 [place] Immature granulocytes (Bld) [#/Vol] 0.05 10*3/uL [place] Interpretation and review of laboratory results Abnormal [place] Lymphocytes (Bld) [#/Vol] 3.08 10*3/uL [place] Lymphocytes/100 WBC (Bld) 32 % 24 - 43 % [place] MCH (RBC) [Entitic mass] 30.0 pg 25.2 - 33.5 pg [place] MCHC (RBC) [Mass/Vol] 31.1 g/dL 28.4 - 34.8 g/dL [place] MCV (RBC) [Entitic vol] 96.7 fL 82.6 - 102.9 fL [place] Monocytes (Bld) [#/Vol] 0.73 10*3/uL [place] Monocytes/100 WBC (Bld) 8 % 3 - 12 % [place] Platelet mean volume (Bld) [Entitic vol] 9.8 fL 8.1 - 13.5 fL [place] Platelets (Bld) [#/Vol] 278 10*3/uL [place] Platelets (Bld) [#/Vol] NOT REPORTED [place] RBC (Bld) [#/Vol] 4.53 10*6/uL 3.95 - 5.1 1 m/uL [place] RBC morphology finding Nom (Bld) NOT REPORTED [place] Segmented neutrophils/100 WBC (Bld) 56 % 36 - 65 % [place] Segs Absolute 5.63 [place] WBC (Bld) [#/Vol] 9.8 10*3/uL [place] WBC (Bld) [#/Vol] 0.0 10*3/uL 0.0 per 10 0 WBC [place] WBC Morphology NOT REPORTED [place] Comprehensive Metabolic Pane uriel 10-18-2019 Albumin [Mass/Vol] 4 g/dL 3.5 - 5.2 g/dL [place] Albumin/Globulin [Mass ratio] 1.4 {ratio} [place] ALP [Catalytic activity/Vol] 67 U/L 35 - 104 U/L [place] ALT [Catalytic activity/Vol] 13 U/L 5 - 33 U/L [place] Anion gap [Moles/Vol] 8 mmol/L Low 9 - 17 mmol/L [place] AST [Catalytic activity/Vol] 18 U/L <32 [place] Bilirubin Ql (U) 0.50 mg/dL 0.3 - 1.2 mg/dL [place] Bun/Cre Ratio 21 High [place] Calcium [Mass/Vol] 9.5 mg/dL 8.6 - 10. 4 mg/dL [place] Chloride [Moles/Vol] 107 mmol/L 98 - 10 7 mmol/L [place] CO2 [Moles/Vol] 28 mmol/L 20 - 31 mmol/L [place] Creatinine [Mass/Vol] 0.8 mg/dL 0.5 - 0.9 mg/dL [place] GFR >60 >60 mL/min [place] GFR Non- >60 >60 mL/min [place] Glucose [Mass/Vol] 110 mg/dL High 70 - 99 mg/dL [place] Interpretation and review of laboratory results Abnormal [place] Potassium [Moles/Vol] 5.6 mmol/L High 3.7 - 5.3 mmol/L [place] Protein [Mass/Vol] 6.9 g/dL 6.4 - 8.3 g/dL [place] Sodium [Moles/Vol] 143 mmol/L 135 - 144 mmol/L [place] Urea nitrogen [Mass/Vol] 17 mg/dL 8 - 23 mg/dL [place] Lipid Panelon 10-18-2019 Cholesterol [Mass/Vol] 149 mg/dL <200 [place], [place] Comment on above: Cholesterol Guidelines: <200 Desirable 200-240 Borderline >240 Undesirable Cholesterol in HDL [Mass/Vol] 59 mg/dL >40 [place] Comment on above: HDL Guidelines: <40 Undesirable 40-59 Borderline >59 Desirable Cholesterol in LDL [Mass/Vol] 77 mg/dL 0 - 130 mg/dL [place] Comment on above: LDL Guidelines: <100 Desirable 100-129 Near to/above Desirable 130-159 Borderline >159 Undesirable Direct (measured) LDL and calculated LDL are not interchangeable tests. Cholesterol in VLDL [Mass/Vol] NOT REPORTED 1 - 30 mg/dL [place] Cholesterol.total/Chol esterol in HDL [Mass ratio] 2.5 {ratio} <5 [place] Triglyceride [Mass/Vol] 63 mg/dL <150 [place] Comment on above: Triglyceride Guidelines: <150 Desirable 150-199 Borderline 200-499 High >499 Very high Based on AHA Guidelines for fasting triglyceride, January 2012. Metabolic Panelon 10-18-2019 GFR/1.73 sq M predicted among non-blacks MDRD (S/P/Bld) [Vol rate/Area] [place] Comment on above: Stage 1: Some kidney damage normal GFR Stage 2: Mild kidney damage GFR 60-89 Stage 3: Moderate kidney damage GFR 30-59 Stage 4: Severe kidney damage GFR 15-29 Stage 5: Severe kidney damage GFR <15 ESRD - chronic treatment by dialysis or transplant Average GFR for 70 o r more years old: 75 mL/min/1.73sq m Chronic Kidney Disease: <60 mL/min/1.73sq m Kidney failure: <15 mL/min/1.73sq m eGFR calculated using average adult body mass. Additional eGFR calculator available at: http://www.[employer]/multiple_crcl_2012.htm CBC Auto DifferentialOrdered By: Aye Nevarez on 04-22-2019 [employer] # 0.25 [facility] Work Phone: Absolute Immature Granulocyte 0.04 [facility] Work Phone: Absolute Lymph # 3.17 [facility] Work Phone: Absolute [place] # 0.67 [facility] [facility] Work Phone: Basophils (Bld) [#/Vol] 0.10 10*3/uL [employer] Phone: Basophils/100 WBC (Bld) 1 % 0 - 2 % [employer] Phone: Differential Type NOT REPORTED [employer] Phone: Eosinophils/100 WBC (Bld) 3 % 1 - 4 % [employer] Phone: Erythrocyte distribution width (RBC) [Ratio] 12.6 % 11.8 - 14.4 % [employer] Phone: Hematocrit (Bld) [Volume fraction] 43.9 % 36.3 - 47.1 % [employer] Phone: Hemoglobin (Bld) [Mass/Vol] 13.7 g/dL 11.9 - 15.1 g/dL [employer] Phone: Immature granulocytes/100 WBC (Bld) 1 % High 0 [employer] Phone: Interpretation and review of laboratory results Abnormal [employer] Phone: Lymphocytes/100 WBC (Bld) 36 % 24 - 43 % [employer] Phone: MCH (RBC) [Entitic mass] 30.0 pg 25.2 - 33.5 pg [employer] Phone: MCHC (RBC) [Mass/Vol] 31.2 g/dL 28.4 - 34.8 g/dL [employer] Phone: MCV (RBC) [Entitic vol] 96.3 fL 82.6 - 102.9 fL [employer] Phone: Monocytes/100 WBC (Bld) 8 % 3 - 12 % [employer] Phone: NRBC Automated 0.0 0.0 per 100 WBC [employer] Phone: Platelet Estimate NOT REPORTED [employer] Phone: Platelet mean volume (Bld) [Entitic vol] 9.1 fL 8.1 - 13.5 fL [employer] Phone: Platelets (Bld) [#/Vol] 308 10*3/uL [employer] Phone: RBC (Bld) [#/Vol] 4.56 10*6/uL 3.95 - 5.1 1 m/uL [employer] Phone: RBC morphology finding Nom (Bld) NOT REPORTED [employer] Phone: Segmented neutrophils/100 WBC (Bld) 51 % 36 - 65 % [employer] Phone: Segs Absolute 4.47 [email or web address] Work Phone: WBC (Bld) [#/Vol] 8.7 10*3/uL [employer] Phone: WBC Morphology NOT REPORTED [employer] [facility] Work Phone: Comprehensive Metabolic Pane lOrdered By: Aye Nevarez on 04-22-2019 Albumin [Mass/Vol] 4 g/dL 3.5 - 5.2 g/dL [employer] Phone: Albumin/Globulin [Mass ratio] 1.3 {ratio} [employer] Phone: ALP [Catalytic activity/Vol] 71 U/L 35 - 104 U/L [employer] Phone: ALT [Catalytic activity/Vol] 11 U/L 5 - 33 U/L [employer] Phone: Anion gap [Moles/Vol] 10 mmol/L 9 - 17 mmol/L [employer] Phone: AST [Catalytic activity/Vol] 16 U/L <32 [employer] Phone: Bilirubin [Mass/Vol] 0.43 mg/dL 0.3 - 1 .2 mg/dL [employer] Phone: Bun/Cre Ratio 19 [employer] Work Phone: Calcium [Mass/Vol] 9.7 mg/dL 8.6 - 10. 4 mg/dL [employer] Phone: Chloride [Moles/Vol] 102 mmol/L 98 - 10 7 mmol/L [employer] Phone: CO2 [Moles/Vol] 26 mmol/L 20 - 31 mmol/L [employer] Phone: Creatinine [Mass/Vol] 0.69 mg/dL 0.5 - 0.9 mg/dL [employer] Phone: GFR >60 >60 mL/min [employer] Phone: GFR Comment [employer] Phone: Comment on above: Average GFR for 70 o r more years old: 75 mL/min/1.73sq m Chronic Kidney Disease: <60 mL/min/1.73sq m Kidney failure: <15 mL/min/1.73sq m eGFR calculated using average adult body mass. Additional eGFR calculator available at: http://www.[employer]/multiple_crcl_2012.htm GFR Non- >60 >60 mL/min [employer] Phone: GFR Staging [employer] Phone: Comment on above: Stage 1: Some kidney damage normal GFR Stage 2: Mild kidney damage GFR 60-89 Stage 3: Moderate kidney damage GFR 30-59 Stage 4: Severe kidney damage GFR 15-29 Stage 5: Severe kidney damage GFR <15 ESRD - chronic treatment by dialysis or transplant Glucose [Mass/Vol] 104 mg/dL High 70 - 99 mg/dL [employer] Phone: Interpretation and review of laboratory results Abnormal [employer] Phone: Potassium [Moles/Vol] 4.7 mmol/L 3.7 - 5.3 mmol/L [employer] Phone: Protein [Mass/Vol] 7.1 g/dL 6.4 - 8.3 g/dL [employer] Phone: Sodium [Moles/Vol] 138 mmol/L 135 - 144 mmol/L [employer] Phone: Urea nitrogen [Mass/Vol] 13 mg/dL 8 - 23 mg/dL [employer] Phone: Lipid PanelOrdered By: Aye Nevarez on 04-22-2019 Cholesterol [Mass/Vol] 155 mg/dL <200 [employer] Phone: Comment on above: Cholesterol Guidelines: <200 Desirable 200-240 Borderline >240 Undesirable Cholesterol in HDL [Mass/Vol] 52 mg/dL >40 [employer] Phone: Comment on above: HDL Guidelines: <40 Undesirable 40-59 Borderline >59 Desirable Cholesterol in LDL [Mass/Vol] 80 mg/dL 0 - 130 mg/dL [employer] Phone: Comment on above: LDL Guidelines: <100 Desirable 100-129 Near to/above Desirable 130-159 Borderline >159 Undesirable Direct (measured) LDL and calculated LDL are not interchangeable tests. Cholesterol.total/Chol esterol in HDL [Mass ratio] 3 {ratio} <5 [employer] Phone: Triglyceride [Mass/Vol] 114 mg/dL <150 [employer] Phone: Comment on above: Triglyceride Guidelines: <150 Desirable 150-199 Borderline 200-499 High >499 Very high Based on AHA Guidelines for fasting triglyceride, January 2012. VLDL NOT REPORTED 1 - 30 mg/dL [employer] Phone: MRI BRAIN WO CONTRASTon 11-0 Chronic microvascula r disease without acute intracranial abnormality. Scattered foci of blooming artifact on susceptibility weighted imaging that is nonspecific and may relate to hypertensive microangiopathy versus amyloid angiopathy. [place] EXAMINATION: MRI OF THE BRAIN WITHOUT CONTRAST 02/12/2019 12:53 pm TECHNIQUE: Multiplanar multisequence MRI of the brain was performed without the administration of intravenous contrast. COMPARISON: None. HISTORY: ORDERING SYSTEM PROVIDED HISTORY: Lewy body dementia without behavioral disturbance (HCC) FINDINGS: INTRACRANIAL STRUCTURES/VENTRICLES: The sellar and suprasellar structures, optic chiasm, corpus callosum, pineal gland, tectum, and midline brainstem structures are unremarkable. The craniocervical junction is unremarkable. There is no acute intracranial hemorrhage, mass effect, or midline shift. There is satisfactory overall bran-white matter differentiation. There is mild chronic microvascular disease. The ventricular structures are symmetric and unremarkable. The infratentorial structures including the cerebellopontine angles and internal auditory canals are unremarkable. There is no abnormal restricted diffusion. There are scattered punctate foci of blooming artifact on susceptibility weighted imaging. ORBITS: The visualized portion of the orbits demonstrate no acute abnormality. SINUSES: The visualized paranasal sinuses and mastoid air cells are well aerated. BONES/SOFT TISSUES: The bone marrow signal intensity appears normal. The soft tissues demonstrate no acute abnormality. [place], [place] Romero, Mhpn Incoming Radiant Results From [email or web address] - 02/12/2019 2:18 PM EST EXAMINATION: MRI OF THE BRAIN WITHOUT CONTRAST 02/12/2019 12:53 pm TECHNIQUE: Multiplanar multisequence MRI of the brain was performed without the administration of intravenous contrast. COMPARISON: None. HISTORY: ORDERING SYSTEM PROVIDED HISTORY: Lewy body dementia without behavioral disturbance (HCC) FINDINGS: INTRACRANIAL STRUCTURES/VENTRICLES: The sellar and suprasellar structures, optic chiasm, corpus callosum, pineal gland, tectum, and midline brainstem structures are unremarkable. The craniocervical junction is unremarkable. There is no acute intracranial hemorrhage, mass effect, or midline shift. There is satisfactory overall bran-white matter differentiation. There is mild chronic microvascular disease. The ventricular structures are symmetric and unremarkable. The infratentorial structures including the cerebellopontine angles and internal auditory canals are unremarkable. There is no abnormal restricted diffusion. There are scattered punctate foci of blooming artifact on susceptibility weighted imaging. ORBITS: The visualized portion of the orbits demonstrate no acute abnormality. SINUSES: The visualized paranasal sinuses and mastoid air cells are well aerated. BONES/SOFT TISSUES: The bone marrow signal intensity appears normal. The soft tissues demonstrate no acute abnormality. IMPRESSION: Chronic microvascular disease without acute intracranial abnormality. Scattered foci of blooming artifact on susceptibility weighted imaging that is nonspecific and may relate to hypertensive microangiopathy versus amyloid angiopathy. [place] TSH without Reflexon 019 TSH Qn 4.31 m[IU]/L [place] Comprehensive Metabolic Pane uriel 12-26-2018 Albumin [Mass/Vol] 3.8 g/dL 3.5 - 5.2 g/dL [place] Albumin/Globulin [Mass ratio] 1.3 {ratio} [place] ALP [Catalytic activity/Vol] 72 U/L 35 - 104 U/L [place] ALT [Catalytic activity/Vol] 9 U/L 5 - 33 U/L [place] Anion gap [Moles/Vol] 11 mmol/L 9 - 17 mmol/L [place] AST [Catalytic activity/Vol] 14 U/L <32 [place] Bilirubin Ql (U) 0.43 mg/dL 0.3 - 1.2 mg/dL [place] Bun/Cre Ratio 14 [place] Calcium [Mass/Vol] 9.5 mg/dL 8.6 - 10. 4 mg/dL [place] Chloride [Moles/Vol] 102 mmol/L 98 - 10 7 mmol/L [place] CO2 [Moles/Vol] 24 mmol/L 20 - 31 mmol/L [place] Creatinine [Mass/Vol] 0.74 mg/dL 0.5 - 0.9 mg/dL [place] GFR >60 >60 mL/min [place] GFR Non- >60 >60 mL/min [place] Glucose [Mass/Vol] 110 mg/dL High 70 - 99 mg/dL [place] Interpretation and review of laboratory results Abnormal [place] Potassium [Moles/Vol] 4.8 mmol/L 3.7 - 5.3 mmol/L [place] Protein [Mass/Vol] 6.8 g/dL 6.4 - 8.3 g/dL [place] Sodium [Moles/Vol] 137 mmol/L 135 - 144 mmol/L [place] Urea nitrogen [Mass/Vol] 10 mg/dL 8 - 23 mg/dL [place] Lipid Panelon 12-26-2018 Cholesterol [Mass/Vol] 175 mg/dL <200 [place] Comment on above: Cholesterol Guidelines: <200 Desirable 200-240 Borderline >240 Undesirable Cholesterol in HDL [Mass/Vol] 51 mg/dL >40 [place] Comment on above: HDL Guidelines: <40 Undesirable 40-59 Borderline >59 Desirable Cholesterol in LDL [Mass/Vol] 106 mg/dL 0 - 130 mg/dL [place] Comment on above: LDL Guidelines: <100 Desirable 100-129 Near to/above Desirable 130-159 Borderline >159 Undesirable Direct (measured) LDL and calculated LDL are not interchangeable tests. Cholesterol in VLDL [Mass/Vol] NOT REPORTED 1 - 30 mg/dL [place] Cholesterol.total/Chol esterol in HDL [Mass ratio] 3.4 {ratio} <5 [place] Triglyceride [Mass/Vol] 90 mg/dL <150 [place] Comment on above: Triglyceride Guidelines: <150 Desirable 150-199 Borderline 200-499 High >499 Very high Based on AHA Guidelines for fasting triglyceride, January 2012. Metabolic Panelon 12-26-2018 GFR/1.73 sq M predicted among non-blacks MDRD (S/P/Bld) [Vol rate/Area] [place] Comment on above: Stage 1: Some kidney damage normal GFR Stage 2: Mild kidney damage GFR 60-89 Stage 3: Moderate kidney damage GFR 30-59 Stage 4: Severe kidney damage GFR 15-29 Stage 5: Severe kidney damage GFR <15 ESRD - chronic treatment by dialysis or transplant Average GFR for 70 o r more years old: 75 mL/min/1.73sq m Chronic Kidney Disease: <60 mL/min/1.73sq m Kidney failure: <15 mL/min/1.73sq m eGFR calculated using average adult body mass. Additional eGFR calculator available at: http://www.ClearStream.Coupay/multiple_crcl_2012.htm Vital Signs Date Time Vital Sign Value Performing Clinician Gasper hess 10-20-2020 18:30-0400 Body temperature 98.6 [degF] Radu Worrell MD Work Phone: [employer] Work Phone: 10-20-2020 18:30-0400 Diastolic blood pressure 53 mm[Hg] Radu Worrell MD Work Phone: [employer] Work Phone: 10-20-2020 18:30-0400 Heart rate 77 /min Radu Worrell MD Work Phone: [employer] Work Phone: 10-20-2020 18:30-0400 Respiratory rate 15 /min Radu Worrell MD Work Phone: [employer] Work Phone: 10-20-2020 18:30-0400 SaO2% (BldA) [Mass fraction] 96 % Radu Worrell MD Work Phone: [employer] Work Phone: 10-20-2020 18:30-0400 Systolic blood pressure 120 mm[Hg] Radu Worrell MD Work Phone: [employer] Work Phone: 10-20-2020 08:43-0400 Body height 149.9 cm Radu Worrell MD Work Phone: [employer] Work Phone: 10-20-2020 08:30-0400 Body mass index (BMI) [Ratio] 32.03 kg/m2 Radu Worrell MD Work Phone: [employer] Work Phone: 10-20-2020 08:30-0400 Body weight 71.94 kg Radu Worrell MD Work Phone: [employer] Work Phone: 08-05-2020 11:44-0400 Body temperature 98.8 [degF] Jungsik Kin DO Work Phone: [employer] Work Phone: 08-05-2020 11:44-0400 Diastolic blood pressure 66 mm[Hg] Jungsik Kin DO Work Phone: [employer] Work Phone: 08-05-2020 11:44-0400 Heart rate 80 /min [employer]sik Kin DO Work Phone: [employer] Work Phone: 08-05-2020 11:44-0400 Respiratory rate 18 /min [employer]sik Kin DO Work Phone: [employer] Work Phone: 08-05-2020 11:44-0400 SaO2% (BldA) [Mass fraction] 98 % [employer]sik Kin DO Work Phone: [employer] Phone: 08-05-2020 11:44-0400 Systolic blood pressure 146 mm[Hg] [employer]sik Kin DO Work Phone: [employer] Phone: 08-04-2020 00:52-0400 Body height 149.9 cm [employer]sik Kin DO Work Phone: [employer] Phone: 08-04-2020 00:52-0400 Body mass index (BMI) [Ratio] 32.74 kg/m2 [employer]sik Kin DO Work Phone: [employer] Phone: 08-04-2020 00:52-0400 Body weight 73.53 kg [employer]sik Kin DO Work Phone: [employer] Phone: Encounters Encounter Date Encounter Type Care Provider Facility Start: 05-09-2023 End: 05-10-2023 ambulatory AYE ROQUE [facility] Start: 07-18-2022 End: 07-19-2022 ambulatory KEVIN STEINER Facility:[facility] Start: 07-08-2022 End: 07-08-2022 ambulatory ANN GEOFFREY ZHOU . Facility:[facility] Start: 09-23-2021 End: 09-24-2021 [facility] Start: 09-23-2021 End: 09-23-2021 Subsequent hospital visit by physician Aye Nevarez DO Work Phone: [facility] Start: 04-28-2021 End: 04-29-2021 ambulatory [facility] Start: 10-19-2020 End: 10-21-2020 Evaluation and management of inpatient AYE [facility] Start: 10-19-2020 End: 10-20-2020 Evaluation and management of inpatient Radu Worrell MD Work Phone: [facility] Comment on above: Generalized weakness (Primary Dx); Mild dehydration; Acute cystitis without hematuria Start: 08-04-2020 End: 08-05-2020 ambulatory [facility] Start: 08-04-2020 End: 08-05-2020 Subsequent hospital visit by physician Damián Sanderson DO Work Phone: [facility] [employer] [facility] Start: 05-13-2020 End: 05-15-2020 Subsequent hospital visit by physician Latha [facility] Comment on above: Pain of right upper arm; Swollen vein Start: 02-25-2020 End: 02-25-2020 Subsequent hospital visit by physician Aye Nevarez [facility] Start: 10-18-2019 End: 10-18-2019 Subsequent hospital visit by physician Aye Nevarez [facility] Start: 04-22-2019 End: 04-22-2019 Subsequent hospital visit by physician Aye Nevarez DO Work Phone: [facility] Start: 02-12-2019 End: 02-14-2019 Subsequent hospital visit by physician Azul Mri Scanner [facility] MRI Comment on above: Lewy body dementia w ithout behavioral disturbance (HCC) Start: 12-26-2018 End: 12-26-2018 Subsequent hospital visit by physician Aye Nevarez [facility] Laboratory Procedures Date Procedure Procedure Detail Performing Clinician Start: 09-23-2021 Comprehensive metabo lic panel Aye Thomas Roque DO Work Phone: Start: 09-23-2021 Lipid panel Aye Thomas Maxime jeronimo DO Work Phone: Start: 10-20-2020 Blood count complete automated Casandra Cerda MD Work Phone: Start: 10-20-2020 Quantitation drug no t elsewhere specified Casandra Cerda MD Work Phone: Start: 10-19-2020 Intermittent pulse oximetry Casandra Cerda MD Work Phone: Start: 10-19-2020 Urinalysis microscopic only Radu Worrell MD Work Phone: Start: 10-19-2020 Urnls dip stick/tabl et rgnt auto w/o microscopy Radu Worrell MD Work Phone: Start: 10-19-2020 Radiologic exam ches t single view Radu Worrell MD Work Phone: Start: 10-19-2020 Blood gases any comb ination ph pco2 po2 co2 hco3 Radu Worrell MD Work Phone: Start: 10-19-2020 Lactate [Moles/volum e] in Serum or Plasma Radu Worrell MD Work Phone: Start: 10-19-2020 End: 10-19-2020 CULTURE, BLOOD 1 Radu Worrell MD Work Phone: Start: 10-19-2020 Ct head/brain w/o co ntrast material Izzy Teran PA-C Work Phone: Start: 10-19-2020 Ecg routine ecg w/le ast 12 lds i&r only Radu Worrell MD Work Phone: Start: 10-19-2020 Assay of lipase Radu Worrell MD Work Phone: Start: 08-05-2020 Gluc bld gluc mntr d ev cleared fda spec home use Darlyn Garcia MD Work Phone: Start: 08-05-2020 EEG Hansel Verdugo MD Work Phone: Start: 08-05-2020 Anion gap [Moles/Vol] M octavio Mensah MD Work Phone: Start: 08-05-2020 Basic metabolic pane l calcium total Jack Mensah MD Work Phone: Start: 08-05-2020 GLOMERULAR FILTRATIO N RATE, ESTIMATED Jack Mensah MD Work Phone: Start: 08-04-2020 Mri brain brain stem w/o w/contrast material Darien Ferrara MD Work Phone: Start: 08-04-2020 CULTURE, REFLEXED, URINE Darien Ferrara MD Work Phone: Start: 08-04-2020 URINE WITH REFLEXED MICRO Darien Ferrara MD Work Phone: Start: 08-04-2020 Assay of free thyroxine Darien Ferrara MD Work Phone: Start: 08-04-2020 VITAMIN B12 & FOLATE Ka morenita Ferrara MD Work Phone: Start: 05-13-2020 Dup-scan xtr veins unilateral/limited study Aye William Roque Work Phone: Start: 02-25-2020 Blood count complete auto&auto difrntl wbc Aye Thomas Roque Work Phone: Start: 02-25-2020 Comprehensive metabo lic panel Aye William Roque Work Phone: Start: 02-25-2020 Lipid panel Aye William Maxime jeroinmo Work Phone: Start: 10-18-2019 Blood count complete auto&auto difrntl wbc Aye Thomas Roque Work Phone: Start: 10-18-2019 Comprehensive metabo lic panel Aye William Roque Work Phone: Start: 10-18-2019 Lipid panel Aye jeronimo Work Phone: Start: 04-22-2019 Comprehensive metabo lic panel Aye Nevarez DO Work Phone: Start: 04-22-2019 Lipid panel Aye jeronimo DO Work Phone: Start: 02-12-2019 Mri brain brain stem w/o contrast material Shubham Deshpande Work Phone: Start: 02-12-2019 Assay of thyroid stimulating hormone tsh Shubham Deshpande Work Phone: Start: 12-26-2018 Comprehensive metabo lic panel Aye Nevarez Work Phone: Start: 12-26-2018 Lipid panel Aye jeronimo Work Phone: Plan of Treatment Date Care Activity Detail Author Start: 04-28-2022 Lipid panel Lipids [facility] [employer] Start: 12-09-2021 Influenza vaccination Flu vacc ine (Season Ended) [facility] [employer] Start: 10-20-2021 Creatinine measurement Creatinine mo [facility] [employer] Work Phone: Start: 10-20-2021 Potassium monitoring Potassium monit [facility] Work Phone: Start: 08-05-2021 Creatinine measurement Creatinine mo [facility] Work Phone: Start: 08-05-2021 Potassium monitoring Potassium monit [facility] Work Phone: Start: 02-24-2021 Creatinine measurement Creatinine mo [place] Start: 02-24-2021 Lipid panel Lipid [place] Start: 02-24-2021 Potassium monitoring Potassium monit [place] Start: 12-09-2020 Influenza vaccination [facility] [employer] Work Phone: Start: 10-17-2020 Creatinine measurement Creatinine mo [place] Start: 10-17-2020 Lipid panel Lipid [place] Start: 10-17-2020 Potassium monitoring Potassium monit [place] Start: 04-22-2020 Creatinine measurement Creatinine mo nitoring [place] Start: 04-22-2020 Lipid panel Lipid [place] Start: 04-22-2020 Potassium monitoring Potassium monit [place] Start: 12-27-2019 Creatinine monitoring Creatinine [place] Start: 12-27-2019 Lipid screen Lipid [place] Start: 12-27-2019 Potassium monitoring Potassium monit [place] Start: 12-10-2019 Influenza vaccination Flu vaccine (# 1) [place] Start: 07-18-2019 Creatinine monitoring Creatinine [place] Start: 07-18-2019 Potassium monitoring Potassium monit [place] Start: 12-09-2018 Influenza vaccination Flu vaccine (# 1) [place] Start: 09-30-2018 Annual Wellness Visi t (AWV) Annual Wellness Visit (AWV) [place] Start: 12-30-2004 DEXA (modify frequen cy per FRAX score) DEXA (modify frequency per FRAX score) [place] Start: 12-30-2004 Pneumococcal 65+ yea rs Vaccine (1 - PCV) Pneumococcal 65+ years Vaccine (1 - PCV) [facility] Start: 12-30-2004 Pneumococcal 65+ yea rs Vaccine (1 of 1 - PPSV23) Pneumococcal 65+ years Vaccine (1 of 1 - PPSV23) [place] Start: 12-30-2004 Pneumococcal 65+ yea rs Vaccine (1 of 2 - PCV13) Pneumococcal 65+ years Vaccine (1 of 2 - PCV13) [place] Start: 12-30-1994 Screening for osteoporosis DEXA (modify frequency per FRAX score) [facility] Start: 12-30-1989 Shingles Vaccine (1 of 2) Shingles Vaccine (1 of 2) [facility] Start: 12-30-1958 DTaP/Tdap/Td vaccine (1 - Tdap) DTaP/Tdap/Td vaccine (1 - Tdap) [facility] Start: 1955 COVID-19 Vaccine (1 of 2) COVID-19 Vaccine (1 of 2) [facility] Start: 1955 COVID-19 Vaccine (1) COVID-19 Vaccin e (1) [employer] Phone: Start: 1951 COVID-19 Vaccine (1) COVID-19 Vaccin e (1) [employer] Phone: Start: 1951 Depression Screen Depression Screen [facility] [employer] Start: 12-30-1950 DTaP/Tdap/Td vaccine (1 - Tdap) DTaP/Tdap/Td vaccine (1 - Tdap) [employer] Phone: Start: 12-30-1944 COVID-19 Vaccine (1) COVID-19 Vaccin e (1) [facility] [employer] Start: 1940 Annual Wellness Visi t (AWV) Annual Wellness Visit (AWV) [facility] [employer] End: 08-06-2020 Basic metabolic 2000 panel - Serum or Plasma Basic Metabolic Panel Lab Routine Tomorrow AM for 1 Occurrences starting 08/06/2020 until 08/06/2020 [employer] Phone: Comment on above: Tomorrow AM for 1 Oc currences starting 08/06/2020 until 08/06/2020 End: 08-06-2020 CBC panel - Blood by Automated count CBC Lab Routine Tomorrow AM for 1 Occurrences starting 08/06/2020 until 08/06/2020 [employer] Phone: Comment on above: Tomorrow AM for 1 Oc currences starting 08/06/2020 until 08/06/2020 Culture, Blood [address] [facility] [employer] Work Phone: End: 02-12-2019 Lyme Ab Lyme Ab Lab Routine Once for 1 Occurrences starting 02/12/2019 until 02/12/2019 [place] Comment on above: Once for 1 Occurrenc es starting 02/12/2019 until 02/12/2019 Lyme Ab Lyme Ab Lab Rout ine 02/12/2019 12:32 PM EST [employer] Oxygen therapy [[facility] Data Set] [employer] Work Phone: Comment on above: Daily until disconti nued starting 08/04/2020 Daily until disconti nued starting 10/19/2020 Vitamin B12 & Folate Vitamin B12 & Folate Lab Routine 02/12/2019 12:32 PM EST [employer] Payers Date Payer Category Payer Medicare MEDICARE MEDICAR E PART A AND B xxxxxxxxxxx 2015-Present [phone] [id number] [place] [id number] xxxxxxxxxxx [id number] 2015 Medicare MEDICARE MEDICAR E PART A AND B [id number] 2015-Present [phone] [address] [place] [id number] 2015 Medicare MEDICARE MEDICAR E PART A AND B [id number] 2015-Present [phone] [address] [place] [id number] 1959 Medicare [id number] 1940 Unknown [id number] 1940 Unknown [id number] 1939 Unknown [id number] 1939 Unknown [id number] 1939 Unknown [id number] 1939 Unknown [id number] 1939 Unknown [id number] Social History Date Type Detail Facility Start: 04-14-2015 End: 12-19-2017 Tobacco smoking status NHIS Former sm[place] History of tobacco use Cigarette Smoker [place] Start: 04-14-2015 End: 12-19-2017 Cigarettes smoked current (pack per day) - Reported [place] Start: 12-19-2017 Alcohol intake No [place] Start: 11-25-2015 Tobacco Comment QUIT 1998 [place], [place] Start: 01-02-2017 Alcohol Comment very occasional [place], [place] Start: 1940 Sex Assigned At Not on file [place], [place] Start: 04-14-2015 End: 12-19-2017 Tobacco use and exposure Never used [place] Start: 12-19-2017 End: 10-19-2020 Alcohol intake Current non-drinker of alcohol (finding) [facility] Work Phone: Exposure to SARS-CoV -2 (event) Not sure [facility] History of Present illness Narrative 10-20-2020 Dahiana Kilgore RN - 10/20/2020 10:06 PM Dahiana Linn RN - 10/20/2020 9:00 PM Dahiana Linn RN - 10/20/2020 8:40 PM Yaquelin Bennett RN - 10/20/2020 8:35 PM EDT Note Date & Type Note Facility 10-20-2020 History of Present illness Narrative Patient's family arrived and song writer bagged up her personal items. AMA paperwork was signed by patient's POA. Landscape Gardener took patient down via wheelchair. Landscape Gardener educated patient and family about home safety. Patient is refusing to take all medications. Landscape Gardener checked the locked cupboard for patient's personal items and gave her the bag of her clothes. Patient did not arrive in shoes. Landscape Gardener also called alteration workroom supervisor to update her. Patient is refusing to sign AMA paperwork. Landscape Gardener removed patient left AC IV at this time. Landscape Gardener called and spoke with Miracle, patient's POA. Miracle states she will pick her up. Landscape Gardener passed phone to patient so she could speak with her daughter. Patient insisted that she would start walking home even after speaking with her daughter. Security remains in the room with patient. Dr. Cerda returned the call. Landscape Gardener updated him on the patient and the situation. Dr. Cerda states that can sign out AMA and to make sure she gets a ride home. Landscape Gardener will call patient's POA. Security at bedside with patient at this time. Patient has agreed to sit in chair but is still persistent on walking home at this time if daughter does not come and pick pulling machine tender patient. Security to remain at bedside. Landscape Gardener has been in room with patient while primary nurse, Dahiana PEREYRA, contact family and physician. Patient is very persistent about leaving the hospital at this time. Patient denies being brought into the emergency room last night, denies being admitted into the hospital and denied her family visiting with her earlier. Patient continues to demand for her shoes and refuses to sit down on the bed or chair. Landscape Gardener standing next to patient to ensure patient doesn't fall and to attempt to convince patient to sit down and wait til family and physician call back. Patient began to gather her belongings and stating she would be walking home. Dahiana PEREYRA stated she had contacted security and he will be here shortly. Patient's daughter had called the in room phone multiple times of which song writer handed patient the phone. Patient accused daughter of lying to her when daughter attempted to explain that patient was in the hospital and why she was brought in. Patient hung up on daughter multiple times even after daughter calling back multiple times. Landscape Gardener continued to request for patient to sit down for patient's safety of which patient got verbally aggressive with song writer. Landscape Gardener to continue to be in room with patient til security arrives. Landscape Gardener called security to sit with patient. Patient is verbally aggressive, swearing at staff. She states that she will walk home with or without her shoes while trying to shove past nursing staff. Patient is walking around the room and searching for her shoes and personal items. Patient is agitated and removed her IV. Landscape Gardener was alerted when her bed alarm went off. Landscape Gardener and second nurse cleaned her up and got her a new gown. Patient was confused and would not believe that she was in the hospital. Landscape Gardener will call Dr. Cerda for an update and orders. Patient got up from the bed without using her call light. Landscape Gardener responded to the bed alarm. When asked what she was doing, patient responded I'm walking out of here. Landscape Gardener reminded patient that she was in the hospital and would not be able to leave during the night. Patient complied with this and got back in bed. Bed alarm was reset and patient was educated on using the call light again. Will continue to monitor and assess. Pt. Offered assistance with bathing, pt. Declines. Physical Therapy Facility/Department: [facility]G Daily Treatment Note NAME: Lilliana Patel : 1940 Date of Service: 10/20/2020 Discharge Recommendations: Continue to assess pending progress, Subacute/Shelter Facility, Home with Home health PT Assessment PT Education: Goals;PT Role;Plan of Care;General Safety;Gait Training;Transfer Training Patient Education: Educated pt on above with fair to good understanding noted. REQUIRES PT FOLLOW UP: Yes Patient Diagnosis(es): The primary encounter diagnosis was Generalized weakness. Diagnoses of Mild dehydration and Acute cystitis without hematuria were also pertinent to this visit. has a past medical history of GERD (gastroesophageal reflux disease), Hyperlipidemia, and Hypertension. has a past surgical history that includes Cataract removal (Bilateral); Dilation and curettage of uterus; sinus surgery; Abdominal exploration surgery; Varicose vein surgery (Left); Colonoscopy (2008); Hysterectomy (06/24/2010); joint replacement (Left, 05/09/2011); joint replacement (Right, 05/01/2006); Varicose vein surgery (Left, 12/02/2015); Knee arthroscopy (Right, 01/02/2017); and pr knee scope,diagnostic (Right, 01/02/2017). Restrictions Restrictions/Precautions Restrictions/Precautions: General Precautions, Fall Risk Subjective General Chart Reviewed: Yes Referring Practitioner: Casandra Cerda MD Subjective Subjective: Pt with no complaints of pain currently. Orientation Orientation Overall Orientation Status: Within Functional Limits Cognition Objective Transfers Sit to Stand: Contact guard assistance;Stand by assistance Stand to sit: Contact guard assistance;Stand by assistance Comment: Cues for safety with good understanding noted. Ambulation Ambulation?: Yes Ambulation 1 Surface: level tile Device: No Device Assistance: Contact guard assistance Distance: 50 feet x 3 Comments: Verbal cues needed minimally for posture and safety with turns. Pt demonstrated good understanding of cues. Stairs/Curb Stairs?: No Balance Posture: Fair Sitting - Static: Good Sitting - Dynamic: Good Standing - Static: Fair;+ Standing - Dynamic: Fair Exercises Hip Flexion: 20x Hip Abduction: 20x Knee Long Arc Quad: 20x Ankle Pumps: 20x Comments: Above exercises completed in sitting. Standing ther ex x 15 at counter for support of: heel/toe raises, marching, hip abd, hip ext, knee flexion, and partial squats. G-Code OutComes Score AM-PAC Score Goals Short term goals Time Frame for Short term goals: 10 days Short term goal 1: Patient will ambulate 100' with LRAD with supervision, without LOB Short term goal 2: Patient will perform transfers and bed mobility with ME Short term goal 3: Patient will tolerate 20-30 minutes of therex/act to improve endurance for ADLs Patient Goals Patient goals : Improve strength and mobility Plan Plan Times per week: 7 Times per day: Twice a day Plan Comment: 1x/day on weekends Safety Devices Type of devices: All fall risk precautions in place Therapy Time Individual Concurrent Group Co-treatment Time In 1120 Time Out 1201 Minutes 41 [facility] Met with Patient this a.m. and spoke with daughter, via telephone conversation, re: Patient discharge plans. Patient is an 79 year old , white female, admitted with a diagnosis of Inability to Walk. Patient has a secondary diagnosis of dementia noted. 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 [facility] is OK with daughter as well. Patient lives alone in [place]. She uses a walker, cane, wheelchair, shower chair and grab bars at home for assistance. Patient gets Meals on Wheels. She is independent with her ADL's. Patient does not drive but relies on family for her transportation needs. PCP is Dr. Nevarez. Patient has insurance to assist with the cost of her prescriptions and denies needing further financial assistance with this expense. Referral made to [facility] this a.m. Telephone voicemail message left for their service line coordinator as well. Patient remains a 'Full Code' status and does not have medical directives currently on file. No further discharge planning needs are identified by Patient or her daughter at this point. MARKETING TECHNOLOGIST to assist with discharge placement as appropriate and any other needs as they arise. MARLEE Candelaria 10/20/2020 Comprehensive Nutrition Assessment Type and Reason for Visit: Initial, Positive Nutrition Screen Nutrition Recommendations/Plan: Encourage oral intakes Nutrition Assessment: Predicted suboptimal nutrient intakes r/t altered cognitive status, AEB weight losses of unintentional nature. Weight declines do not appear significant, but do appear in presence of confusional states. Observed a very well taken breakfast, without ingestion issues. Malnutrition Assessment: Malnutrition Status: At risk for malnutrition (Comment) Context: Acute Illness Findings of the 6 clinical characteristics of malnutrition: Energy Intake: Unable to assess Weight Loss: No significant weight loss Body Fat Loss: No significant body fat loss Muscle Mass Loss: No significant muscle mass loss Fluid Accumulation: 1 - Mild Extremities Hand Welt Butter Strength: Not Performed Estimated Daily Nutrient Needs: Energy (kcal): 1913-4538 (15-18); Weight Used for Energy Requirements: Current Protein (g): 54-63 (1.2-1.4); Weight Used for Protein Requirements: Gilmore Fluid (ml/day): 1300+; Method Used for Fluid Requirements: 1 ml/kcal Nutrition Related Findings: BLE 1+ edema Wounds: None Current Nutrition Therapies: ADULT DIET; Regular Anthropometric Measures: Height: 4' 11 (149.9 cm) Current Body Weight: 158 lb 9.6 oz (71.9 kg) Admission Body Weight: 162 lb 1.6 oz (73.5 kg) (not obtained (weight from previous encounter)) Usual Body Weight: 162 lb 1.6 oz (73.5 kg) (08/04 encounter) Gilmore Body Weight: 95 lbs; % Gilmore Body Weight 166.9 % BMI: 32 BMI Categories: Obese Class 2 (BMI 35.0 -39.9) Nutrition Diagnosis: Predicted inadequate energy intake related to cognitive or neurological impairment as evidenced by weight loss Lab Results Component Value Date NA 135 10/20/2020 K 4.5 10/20/2020 CL 103 10/20/2020 CO2 22 10/20/2020 BUN 12 10/20/2020 CREATININE 0.61 10/20/2020 GLUCOSE 91 10/20/2020 CALCIUM 8.6 10/20/2020 PROT 5.6 (L) 10/20/2020 LABALBU 3.1 (L) 10/20/2020 BILITOT 0.17 (L) 10/20/2020 ALKPHOS 64 10/20/2020 AST 13 10/20/2020 ALT 7 10/20/2020 LABGLOM >60 10/20/2020 GFRAA >60 10/20/2020 GLOB NOT REPORTED 08/03/2020 Lab Results Component Value Date LABA1C 5.2 07/17/2018 Lab Results Component Value Date EAG 103 07/17/2018 No results found for: VITD25 Nutrition Interventions: Food and/or Nutrient Delivery: Continue Current Diet Nutrition Education/Counseling: No recommendation at this time Coordination of Nutrition Care: Continue to monitor while inpatient Goals: PO >75% meals Nutrition Monitoring and Evaluation: Behavioral-Environmental Outcomes: None Identified Food/Nutrient Intake Outcomes: Food and Nutrient Intake Physical Signs/Symptoms Outcomes: Biochemical Data, Weight, Fluid Status or Edema Discharge Planning: No discharge needs at this time Contact: [phone] Images from the original note were not included. [facility] Herbal Suspension To avoid potential drug interactions with herbal and nutritional supplements, it is the policy of [facility] to suspend all orders for these products at the time of admission. Per hospital policy the following herbal/nutritional supplements were suspended during the hospital stay: Fish oil Thank you, Melina Santos [facility], 10/20/2020, 7:26 AM Landscape Gardener to bedside, pt activated bed alarm. Upon entry to room, pt sitting up at edge of bed. Pt states she needs to go to the bathroom. Pt assisted to bathroom as contact guard. No assistance required to stand from bed or toilet. Pt continent of urine. Pt assisted back to bed as contact guard, slightly unsteady. Vitals obtained and morning assessment completed by Lisandra PEREYRA. Bed alarm active. Pt denies other needs at this time. Call light in reach. Will continue to monitor. Patient arrived to unit via cart to room 314. Orthos completed at this time. Positive result. Denies pain at this time. Positive hx for dementia. Daughter in law stated that in the past she has pulled out iVs and walked down the hallways. Dementia is getting worse. Stated almost everyone is on board to send to senior care facility except one of the other daughter in laws. Stated she is in denial. They would like to at least see rehab options. Navigator mostly completed. Medications list unable to completed due to patient unaware of medications. Daughter in law stated she would be back in the am. Will need completed. Bed alarm on. documented in this encounter [employer] Phone: History of Present illness Narrative 08-05-2020 Daniela Duggan OT - 08/05/2020 3:23 PM Jose Rai - 08/05/2020 3:20 PM Darlyn Copeland MD - 08/05/2020 1:[address], LD - 08/05/2020 10:43 AM EDT Note Date & Type Note Facility 08-05-2020 History of Present illness Narrative [facility] OCCUPATIONAL THERAPY MISSED TREATMENT NOTE STRJony GATICA 4A 019-A Date: 08/05/2020 Patient Name: Lilliana Patel CSN: [id number] : 1940 (79 y.o.) Gender: female REASON FOR MISSED TREATMENT: Upon 1st attempt, pt was sound asleep as she was given haldol and ativan early this morning, upon 2nd attempt, pt became very agitated refusing participation in OT. Will check back later as time allows. [facility] INPATIENT PHYSICAL THERAPY DAILY NOTE SUHAIL Ramirez - 4A-019-A Time In: 1451 Time Out: 1515 Timed Code Treatment Minutes: 24 Minutes Minutes: 24 Date: 08/05/2020 Patient Name: Lilliana Patel, Gender: female : 1940 (79 y.o.) Referring Practitioner: Jack Mensah MD Diagnosis: AMS (altered mental status) Additional Pertinent Hx: Per H&P 79-year-old female patient who is a direct admission from [facility] ED where she presented with acute confusion and suspected witnessed seizure disorder at home. Patient not a good historian. She does not recall what happened to her. However, she does not appear confused at my time of interview. According to ED documentation patient does noted to have low a seizure by her son in the morning around 8:50 AM. She has no history of seizure disorders. She has a history of dementia on Aricept. She has bitemporal headache, no blurry vision ,no neck pain, no shortness of breath and no chest pain. Denies nausea vomiting and diarrhea. She has a stumbling block but no history of falls. Prior Level of Function: Lives With: Alone Type of Home: House Home Layout: Multi-level, Able to Live on Main level with bedroom/bathroom Home Access: Ramped entrance, Stairs to enter with rails Entrance Stairs - Number of Steps: 3 Home Equipment: Rolling walker, Cane(transfer chair) Ambulation Assistance: Independent Transfer Assistance: Independent Active Administrative Aide: No Additional Comments: pt mod I prior to admission Restrictions/Precautions: Restrictions/Precautions: General Precautions, Fall Risk SUBJECTIVE: Pt. In bed with telesitter on attempting to get up on her own upon arrival. Pt. Requesting to use restroom. Pt. Pleasant and agreeable to therapy session. PAIN: None indicated Vitals: Vitals not assessed per clinical judgement, see nursing flowsheet OBJECTIVE: Bed Mobility: Rolling to Left: Stand By Assistance Supine to Sit: Stand By Assistance Transfers: Sit to Stand: Stand By Assistance Stand to Sit:Stand By Assistance Ambulation: Stand By Assistance, Contact Guard Assistance Distance: 200' x 1, 15' x 1 Surface: Level Tile Device:No Device Gait Deviations: Slow Susu, Decreased Step Length Bilaterally and Decreased Gait Speed Balance: Pt. Standing with no UE support while completing hand hygiene following restroom. Pt. Steady with no LOB. Exercise: Patient was guided in 1 set(s) 10 reps of exercise to both lower extremities. Glut sets, Quad sets, Heelslides, Hip abduction/adduction, Straight leg raises, Seated marches, Seated heel/toe raises, Long arc quads and Seated abduction/adduction. Exercises were completed for increased independence with functional mobility. Functional Outcome Measures: Not completed ASSESSMENT: Assessment: Patient progressing toward established goals. Activity Tolerance: Patient tolerance of treatment: good. Equipment Recommendations:Equipment Needed: No Discharge Recommendations: Continue to assess pending progress, 24 hour supervision or assist Plan: Times per week: 3-5x GM Times per day: Daily Current Treatment Recommendations: Strengthening, Gait Training, Patient/Caregiver Education & Training, ROM, Stair training, Balance Training, Equipment Evaluation, Education, & procurement, Functional Mobility Training, Endurance Training, Home Exercise Program, Transfer Training, Safety Education & Training Patient Education Patient Education: Plan of Care, Transfers, Gait, Verbal Exercise Instruction, safety Goals: Patient goals : none stated Short term goals Time Frame for Short term goals: by discharge Short term goal 1: sit <> supine with HOB flat, no rails, mod I for increased functional ind Short term goal 2: sit <> stand from various surfaces with no AD mod I for increased safety with transfers Short term goal 3: ambulate 300' with no AD mod I for safe household ambulation Short term goal 4: ascend/descend 3 steps with rail mod I for safe enter/exit of home nursing home goals Time Frame for nursing home goals : NA due to short ELOS Following session, patient left in safe position with all fall risk precautions in place. Images from the original note were not included. Hospitalist Progress Note Patient: Lilliana Patel Unit/Bed:[facility]19/019-A Date of : 1940 Acct: [id number] PCP: Aye Nevarez DO Date of Admission: 08/04/2020 Assessment/Plan: 1. Seizure like activity - MRI negative. 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 - Doesn't want to be on any seizure medications - Continue seizure precautions 2. Dementia - Unfortunately, patient received haldol and ativan overnight and is drowsy this morning. Unable to get much history from her - Will reevaluate when patient is more awake - Continue aricept - Restart home Seroquel 3. Essential HTN - Continue home meds Chief Complaint: Seizure like activity Initial H and P:- 79-year-old female patient who is a direct admission from [facility] ED where she presented with acute confusion and suspected witnessed seizure disorder at home. Patient not a good historian. She does not recall what happened to her. However, she does not appear confused at my time of interview. According to ED documentation patient does noted to have low a seizure by her son in the morning around 8:50 AM. She has no history of seizure disorders. She has a history of dementia on Aricept. She has bitemporal headache, no blurry vision ,no neck pain, no shortness of breath and no chest pain. Denies nausea vomiting and diarrhea. She has a stumbling block but no history of falls. Vital signs on admission temperature 36.7 C, respiratory 18, heart rate 74 bpm, blood pressure 157/74, oxygen saturation 95% on room air. Initial labs on admission sodium 137, potassium 4.2, BUN 19, serum creatinine 0.78, liver enzymes are normal. Blood sugar 128. WBC 12.5, hemoglobin 14.0, MCV 94.7, platelets 300. TSH 5.250, folic acid 14.6, vitamin B 12 is 1839. COVID-19 screen is negative. Urinalysis negative for UTI. Chest x-ray which reviewed is negative for infiltrate. No pneumothorax no hydrothorax. Subjective (past 24 hours): Drowsy. Hard to awake. Was aggressive and agitated overnight requiring haldol and ativan. Security had to be called as well. Prior to night patient was completely at her baseline. No other issues at this time Past medical history, family history, social history and allergies reviewed again and is unchanged since admission. ROS (12 point review of systems completed. Pertinent positives noted. Otherwise ROS is negative) Medications: Reviewed Infusion Medications sodium chloride Scheduled Medications donepezil 10 mg Oral BID losartan 50 mg Oral Daily pantoprazole 40 mg Oral QAM AC atorvastatin 10 mg Oral Daily sodium chloride flush 10 mL Intravenous 2 times per day enoxaparin 40 mg Subcutaneous Daily PRN Meds: sodium chloride flush, sodium chloride, promethazine OR ondansetron, polyethylene glycol, acetaminophen OR acetaminophen, LORazepam, LORazepam Intake/Output Summary (Last 24 hours) at 08/05/2020 1349 Last data filed at 08/04/2020 1400 Gross per 24 hour Intake 360 ml Output Net 360 ml Diet: DIET GENERAL; No Added Salt (3-4 GM) Dietary Nutrition Supplements: Standard High Calorie Oral Supplement Exam: BP (!) 146/66 Pulse 80 Temp 98.8 F (37.1 C) (Oral) Resp 18 Ht 4' 11 (1.499 m) Wt 162 lb 1.6 oz (73.5 kg) SpO2 98% BMI 32.74 kg/m General appearance: No apparent distress, appears stated age and cooperative. HEENT: Pupils equal, round, and reactive to light. Conjunctivae/corneas clear. Neck: Supple, with full range of motion. No jugular venous distention. Trachea midline. Respiratory: Normal respiratory effort. Clear to auscultation, bilaterally without Rales/Wheezes/Rhonchi. Cardiovascular: Regular rate and rhythm with normal S1/S2 without murmurs, rubs or gallops. Abdomen: Soft, non-tender, non-distended with normal bowel sounds. Musculoskeletal: passive and active ROM x 4 extremities. Skin: Skin color, texture, turgor normal. No rashes or lesions. Neurologic: Unable to assess due to patients clinical condition Psychiatric: Unable to assess Capillary Refill: Brisk,< 3 seconds Peripheral Pulses: +2 palpable, equal bilaterally Labs: Recent Labs 08/03/20 0906 08/05/20 0414 WBC 12.5* 7.7 HGB 14.0 13.1 HCT 42.6 42.3 PLT 300 242 Recent Labs 08/03/20 0906 08/05/20 0414 NA 137 138 K 4.2 3.8 CL 103 107 CO2 27 23 BUN 19 12 CREATININE 0.78 0.6 CALCIUM 9.5 9.3 Recent Labs 08/03/20 0906 AST 18 ALT 13 BILIDIR <0.08 BILITOT 0.41 ALKPHOS 77 No results for input(s): INR in the last 72 hours. No results for input(s): CKTOTAL, TROPONINI in the last 72 hours. Microbiology: Blood culture #1: No results found for: BC Blood culture #2:No results found for: BLOODCULT2 Organism: Lab Results Component Value Date ORG Mixed Growth 08/04/2020 No results found for: LABGRAM MRSA culture only:No results found for: MRSAC Urine culture: No results found for: LABURIN Respiratory culture: No results found for: CULTRESP Aerobic and Anaerobic : No results found for: LABAERO No results found for: LABANAE Urinalysis: Lab Results Component Value Date NITRU NEGATIVE 08/04/2020 WBCUA 25-50 08/04/2020 BACTERIA FEW 08/04/2020 RBCUA 0-2 08/04/2020 BLOODU TRACE 08/04/2020 SPECGRAV >1.030 08/03/2020 GLUCOSEU NEGATIVE 08/04/2020 GLUCOSEU NEGATIVE 05/22/2011 Radiology: MRI BRAIN W WO CONTRAST Final Result 1. No evidence of an acute infarct. 2. Mild severity chronic small vessel ischemic changes. 3. Global volume loss. 4. Numerous old bilateral microhemorrhages. This report has been created using voice recognition software. It may contain minor errors which are inherent in voice recognition technology. Final report electronically signed by Dr. Gracie Kruse on 08/04/2020 1:28 PM Mri Brain W Wo Contrast Result Date: 08/04/2020 PROCEDURE: MRI BRAIN W WO CONTRAST CLINICAL INFORMATIONSuspected new onset seizure disorder.. COMPARISON: No prior study. TECHNIQUE: Multiplanar and multiple spin echo T1 and T2-weighted images were obtained through the brain before and after the administration of intravenous contrast. Additional sequences include coronal high-resolution FLAIR and coronal T2-weighted images through the temporal lobes. FINDINGS: The diffusion-weighted images are normal. The brain volume is mildly reduced.There are no intra-or extra-axial collections. There is no hydrocephalus, midline shift or mass effect. On the FLAIR and T2-weighted sequences, there is mild signal hyperintensity scattered in the white matter of the brain. This is most consistent with mild severity chronic small vessel ischemic changes. 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 There is symmetric temporal lobe and hippocampal volume loss. On the gradient echo T2-weighted images, there are numerous foci of microhemorrhages scattered throughout both cerebral hemispheres. There is no abnormal enhancement in the brain. The major intracranial vascular flow voids are present. The midline craniocervical junction structures are normal. The brainstem and pituitary gland are normal. 1. No evidence of an acute infarct. 2. Mild severity chronic small vessel ischemic changes. 3. Global volume loss. 4. Numerous old bilateral microhemorrhages. This report has been created using voice recognition software. It may contain minor errors which are inherent in voice recognition technology. Final report electronically signed by Dr. Gracie Kruse on 08/04/2020 1:28 PM Comprehensive Nutrition Assessment Type and Reason for Visit: Initial, Positive Nutrition Screen(unplanned weight loss) Nutrition Recommendations/Plan: Consider MVI. ONS initiated: Ensure Enlive TID. Continue current diet if alert enough to safely consume. Nutrition Assessment: Pt. nutritionally compromised AEB reports of unplanned weight loss prior to admit. At risk for further nutrition compromise r/t lethargy, no breakfast consumed, admit with AMS, seizure, agitation, and underlying medical condition (hx: dementia, HLD, HTN, GERD, smoking). Nutrition recommendations/interventions as per above. Malnutrition Assessment: Malnutrition Status: Insufficient data(pt too lethagic to answer questions) Estimated Daily Nutrient Needs: Energy (kcal): 0515-5364 kcals (15-18 kcals/kg/day); Weight Used for Energy Requirements: Current(74 kg 08/04/20) Protein (g): 54-90 grams (1.2-2 grams/kg IBW/day); Weight Used for Protein Requirements: Gilmore(45 kg (adjusted IBW)) Nutrition Related Findings: Pt seen, telesitter present. Pt very lethargic. Note hx: dementia. Was very confused last night, agitated, medicated. Labs noted. Rx: lipitor, aricept, protonix. She lives alone, has meals on wheels. Admitted with AMS, seizures. Note per EMR records potential ~ 63# weight loss in the last 2 years. Breakfast try untouched. Will provide ONS. Wounds: None Current Nutrition Therapies: DIET GENERAL; No Added Salt (3-4 GM) Dietary Nutrition Supplements: Standard High Calorie Oral Supplement Anthropometric Measures: Height: 4' 11 (149.9 cm) Current Body Weight: 162 lb 1.6 oz (73.5 kg)(08/04/20 trace LE edema) Admission Body Weight: 162 lb 1.6 oz (73.5 kg)(08/04/20 trace LE edema) Usual Body Weight: (Pt unable to state. Per EMR: 08/29/18: 225#) Gilmore Body Weight: 95 lbs; BMI: 32.7 Adjusted Body Weight: ; (adjusted for low stature: IBW 98#) BMI Categories: Obese Class 1 (BMI 30.0-34.9) Nutrition Diagnosis: Inadequate oral intake related to inadequate protein-energy intake as evidenced by weight loss Nutrition Interventions: Food and/or Nutrient Delivery: Continue Current Diet, Start Oral Nutrition Supplement Nutrition Education/Counseling: Education not appropriate Coordination of Nutrition Care: Continue to monitor while inpatient Goals: Patient will safely consume 75% or more of meals during LOS. Nutrition Monitoring and Evaluation: Behavioral-Environmental Outcomes: None Identified Food/Nutrient Intake Outcomes: Food and Nutrient Intake, Supplement Intake Physical Signs/Symptoms Outcomes: Biochemical Data, GI Status, Fluid Status or Edema, Meal Time Behavior, Nutrition Focused Physical Findings, Skin, Weight Discharge Planning: Too soon to determine Contact: 245- Patient found in hallway confused. When attempting to redirect back to bed patient became agitated and refused to go back in room. When asked where patient was trying to go she would repeatedly say, I'm going back to my room. That is not my room. This nurse and other floor staff attempted to redirect and reorient patient. She became aggressive and screaming in hallway. Panic alarm pulled. 2 campus security officers responded and were able to get patient back into bed. Patient still screaming that we are at her house and that she wants us to leave her alone. 255- [place] security left unit after patient safely back into bed. This nurse attempted to place new IV catheter as the previous on had been pulled. She attempted to swing at staff still remaining in the room. Patient received medication to help calm her down. Family called with no answer. [facility] [facility] INPATIENT PHYSICAL THERAPY EVALUATION [facility] 4A - 4A-19/019-A Time In: 1424 Time Out: 1449 Timed Code Treatment Minutes: 15 Minutes Minutes: 25 Date: 08/04/2020 Patient Name: Lilliana Patel, Gender: female : 1940 (79 y.o.) Referring Practitioner: Jack Mensah MD Diagnosis: AMS (altered mental status) Additional Pertinent Hx: Per H&P 79-year-old female patient who is a direct admission from [facility] ED where she presented with acute confusion and suspected witnessed seizure disorder at home. Patient not a good historian. She does not recall what happened to her. However, she does not appear confused at my time of interview. According to ED documentation patient does noted to have low a seizure by her son in the morning around 8:50 AM. She has no history of seizure disorders. She has a history of dementia on Aricept. She has bitemporal headache, no blurry vision ,no neck pain, no shortness of breath and no chest pain. Denies nausea vomiting and diarrhea. She has a stumbling block but no history of falls. Restrictions/Precautions: Restrictions/Precautions: General Precautions, Fall Risk Subjective: Chart Reviewed: Yes Patient assessed for rehabilitation services?: Yes Subjective: RN approved session, pleasant and agreeable to therapy. Pt is alert to only self, when pt answers orientation questions wrong she will laugh and say just kidding . General: Overall Orientation Status: Impaired Orientation Level: Oriented to person, Disoriented to place, Disoriented to time, Disoriented to situation Follows Commands: Within Functional Limits Vision: Impaired Vision Exceptions: Wears glasses at all times Hearing: Within functional limits Pain: 0/10: denies Vitals: Vitals not assessed per clinical judgement, see nursing flowsheet Social/Functional History: Lives With: Alone Type of Home: House Home Layout: Multi-level, Able to Live on Main level with bedroom/bathroom Home Access: Ramped entrance, Stairs to enter with rails Entrance Stairs - Number of Steps: 3 Home Equipment: Rolling walker, Cane(transfer chair) Ambulation Assistance: Independent Transfer Assistance: Independent Active Administrative Aide: No Additional Comments: pt mod I prior to admission OBJECTIVE: Range of Motion: Bilateral Lower Extremity: WFL Strength: Bilateral Lower Extremity: Impaired - grossly deconditioned Balance: Static Sitting Balance: Supervision Static Standing Balance: Stand By Assistance Dynamic Standing Balance: Contact Guard Assistance *Ring toss: reaching outside JOSE in multiple directions 10x Bed Mobility: Supine to Sit: Stand By Assistance Sit to Supine: Stand By Assistance Transfers: Sit to Stand: Stand By Assistance Stand to Sit:Stand By Assistance Ambulation: Contact Guard Assistance Distance: 200' Surface: Level Tile Device:No Device Gait Deviations: Decreased Step Length Bilaterally, Decreased Gait Speed, Decreased Heel Strike Bilaterally and Mild Path Deviations 2 Functional Outcome Measures: Completed Dynamic Gait Total Score: 15 AM-[facility] Inpatient Mobility Raw Score : 18 AM-[facility] Inpatient T-Scale Score : 43.63 ASSESSMENT: Activity Tolerance: Patient tolerance of treatment: good. Pt needs reoriented and several cues to stay on task as well as for safety and sequencing. Treatment Initiated: Treatment and education initiated within context of evaluation. Evaluation time included review of current medical information, gathering information related to past medical, social and functional history, completion of standardized testing, formal and informal observation of tasks, assessment of data and development of plan of care and goals. Treatment time included skilled education and facilitation of tasks to increase safety and independence with functional mobility for improved independence and quality of life. Assessment: Body structures, Functions, Activity limitations: Decreased functional mobility , Decreased cognition, Decreased endurance, Decreased strength, Decreased balance, Decreased safe awareness Assessment: Pt demonstrates a decrease in baseline by way of bed mobility, transfers and ambulation secondary to decreased activity tolerance, strength, fatigue, and balance deficits. Pt will benefit from skilled PT services throughout admission and beyond hospital discharge for improvements in functional mobility. Prognosis: Good REQUIRES PT FOLLOW UP: Yes Discharge Recommendations: Discharge Recommendations: Continue to assess pending progress, 24 hour supervision or assist Patient Education: PT Education: Goals, PT Role, Plan of Care Equipment Recommendations: Equipment Needed: No Plan: Times per week: 3-5x GM Times per day: Daily Current Treatment Recommendations: Strengthening, Gait Training, Patient/Caregiver Education & Training, ROM, Stair training, Balance Training, Equipment Evaluation, Education, & procurement, Functional Mobility Training, Endurance Training, Home Exercise Program, Transfer Training, Safety Education & Training Goals: Patient goals : none stated Short term goals Time Frame for Short term goals: by discharge Short term goal 1: sit <> supine with HOB flat, no rails, mod I for increased functional ind Short term goal 2: sit <> stand from various surfaces with no AD mod I for increased safety with transfers Short term goal 3: ambulate 300' with no AD mod I for safe household ambulation Short term goal 4: ascend/descend 3 steps with rail mod I for safe enter/exit of home nursing home goals Time Frame for nursing home goals : NA due to short ELOS Following session, patient left in safe position with all fall risk precautions in place. Twan Escobedo PT, DPT [id number] Pt's daughter, Margaret called for a pt update and plan of care. HIPPA code provided. All concerns and questions were addressed. This RN contacted Dr. Mensah with the hospitalist team via [employer] serve message about pt has requested to go home. This RN have tried to explain to her that she needs to have the MRI done and needs to see Dr. Verdugo. Pt has become agreeable for now but she has informed this RN she does not want to be sent to a shelter. Patient admitted to Room 19 via direct admit Complaint upon arrival to the room none IV none infusing into the antecubital left, condition patent. IV site free of s/s of infection or infiltration. Vital signs obtained. Assessment and data collection initiated. Oriented to room. Policies and procedures for explained All questions answered with no further questions at this time. Fall prevention and safety brochure discussed with patient. 2 person skin check completed. Patient declines PCP notification Patient declines family notification. documented in this encounter [employer] Phone: Clinical Note 08-04-2020 Note Date & Type Note Facility 08-04-2020 Note PROCEDURE: MRI BRAIN W WO CONTRAST CLINICAL INFORMATIONSuspected new onset seizure disorder.. COMPARISON: No prior study. TECHNIQUE: Multiplanar and multiple spin echo T1 and T2-weighted images were obtained through the brain before and after the administration of intravenous contrast. Additional sequences include coronal high-resolution FLAIR and coronal T2-weighted images through the temporal lobes. FINDINGS: The diffusion-weighted images are normal. The brain volume is mildly reduced.There are no intra-or extra-axial collections. There is no hydrocephalus, midline shift or mass effect. On the FLAIR and T2-weighted sequences, there is mild signal hyperintensity scattered in the white matter of the brain. This is most consistent with mild severity chronic small vessel ischemic changes. 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 There is symmetric temporal lobe and hippocampal volume loss. On the gradient echo T2-weighted images, there are numerous foci of microhemorrhages scattered throughout both cerebral hemispheres. There is no abnormal enhancement in the brain. The major intracranial vascular flow voids are present. The midline craniocervical junction structures are normal. The brainstem and pituitary gland are normal. IMPRESSION: 1. No evidence of an acute infarct. 2. Mild severity chronic small vessel ischemic changes. 3. Global volume loss. 4. Numerous old bilateral microhemorrhages. This report has been created using voice recognition software. It may contain minor errors which are inherent in voice recognition technology. Final report electronically signed by Dr. Gracie Kruse on 08/04/2020 1:28 PM Interpreted by: Gracie Kruse MD Signed by: Gracie Kruse MD 08/04/20 Final result [facility] Clinical Note 08-04-2020 Note Date & Type Note Facility 08-04-2020 Note PROCEDURE: MRI BRAIN W WO CONTRAST CLINICAL INFORMATIONSuspected new onset seizure disorder.. COMPARISON: No prior study. TECHNIQUE: Multiplanar and multiple spin echo T1 and T2-weighted images were obtained through the brain before and after the administration of intravenous contrast. Additional sequences include coronal high-resolution FLAIR and coronal T2-weighted images through the temporal lobes. FINDINGS: The diffusion-weighted images are normal. The brain volume is mildly reduced.There are no intra-or extra-axial collections. There is no hydrocephalus, midline shift or mass effect. On the FLAIR and T2-weighted sequences, there is mild signal hyperintensity scattered in the white matter of the brain. This is most consistent with mild severity chronic small vessel ischemic changes. 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 There is symmetric temporal lobe and hippocampal volume loss. On the gradient echo T2-weighted images, there are numerous foci of microhemorrhages scattered throughout both cerebral hemispheres. There is no abnormal enhancement in the brain. The major intracranial vascular flow voids are present. The midline craniocervical junction structures are normal. The brainstem and pituitary gland are normal. [employer] Phone: Evaluation note Note Date & Type Note Facility Evaluation note Diagnosis Seizure disorder (HCC)- Primary Unspecified epilepsy without mention of intractable epilepsy AMS (altered mental status) Essential hypertension Unspecified essential hypertension Bilateral carotid bruits TSH elevation Other abnormal blood chemistry documented in this encounter [employer] Phone: Evaluation note Note Date & Type Note Facility Evaluation note Diagnosis Inability to walk- Primary Difficulty in walking Generalized weakness Other malaise and fatigue Mild dehydration Dehydration Acute cystitis without hematuria Acute cystitis Essential hypertension Unspecified essential hypertension Dehydration documented in this encounter [facility] Phone: Hospital Discharge instructions Attachments Note Date & Type Note Facility Hospital Discharge instructions The following attachments cannot be sent through Care Everywhere.Dementia: General Info (Prydeinig)documented in this encounter [employer] Phone: Reason for Referral Status Reason Specialty Diagnoses / Procedures Referre d By Contact Referred To Contact [facility] Diagnoses Lewy body dementia without behavioral disturbance (HCC) Procedures MRI BRAIN WO CONTRAST Shubham Deshpande [address] [place] [address] Status Reason Specialty Diagnoses / Procedures Referred By Contact Referred To Contact Closed Vascular Lab Diagnoses Pain of right upper arm Swollen vein Procedures VL DUP UPPER EXTREMITY VENOUS RIGHT Aye Nevarez, DO [address] [place] [address] [facility] [address] [place] [address] Assessments Diagnosis Lewy body dementia without behavioral disturbance (HCC) Dementia with Lewy bodies Diagnosis Pain of right upper arm Pain in limb Swollen vein Advance Directives No Advanced Directives Records FoundDocuments on File Type Date Recorded Patient Pre School Manager Expl anation Advance Directives and Living Will Power of Slasher Latest Code Status on File Code Status Date Activated Date Inactivated Comments Full Code 12/02/2015 1:49 PM 12/02/2015 5:12 PM Documents on File Type Date Recorded Patient Pre School Manager Expl anation Advance Directives and Living Will Power of Slasher Latest Code Status on File Code Status Date Activated Date Inactivated Comments Full Code 12/02/2015 1:49 PM 12/02/2015 5:12 PM Documents on File Type Date Recorded Patient Pre School Manager Expl anation ACP-Advance Directive ACP-Power of Slasher Documents on File Type Date Recorded Patient Pre School Manager Expl anation ACP-Advance Directive ACP-Power of Slasher Latest Code Status on File Code Status Date Activated Date Inactivated Comments Full Code 08/04/2020 3:05 AM Full Code 12/02/2015 1:49 PM 12/02/2015 5:12 PM Latest Code Status on File Code Status Date Activated Date Inactivated Comments Full Code 10/19/2020 10:31 PM Full Code 08/04/2020 3:05 AM 08/05/2020 7:26 PM Healthcare Agents on File Name Relationship Healthcare Agent [facility] p Communication Margaret Salcedo Child Primary Decision Maker Latest Code Status on File Code Status Date Activated Date Inactivated Comments Full Code 10/19/2020 10:31 PM 10/21/2020 12:19 AM Healthcare Agents on File Name Relationship Healthcare Agent Relationshi p Communication Margaret Salcedo Child Primary Decision Maker Summary Purpose Family History No Family History Records FoundNo Family History Records FoundNo Family History Records FoundNo Family History Records Found Additional Source Comments Reason for Visit (unrecogniz ed section and content) Status Reason Specialty Diagnoses / Procedures Referre d By Contact Referred To Contact Closed Radiology Diagnoses Dementia with Lewy bodies Procedures HC MRI BRAIN WO CTRST BryanShubham francisco [address] [place] [address] [facility] [address] [place] [address] Status Reason Specialty Diagnoses / Procedures Referred By Contact Referred To Contact Closed Vascular Lab Diagnoses Pain of right upper arm Swollen vein Procedures VL DUP UPPER EXTREMITY VENOUS RIGHT Aye Nevarez DO [address] [place] [address] [facility] [address] [place] [address] Reason Comments Status Reason Specialty Diagnoses / Procedures Referre d By Contact Referred To Contact Diagnoses AMS (altered mental status) Altered Mental status Darien Ferrara MD [address] [place] [address] [facility] Reason Comments Fatigue patient started feel ing weak a couple days ago Status Reason Specialty Diagnoses / Procedures Referre d By Contact Referred To Contact Diagnoses Inability to walk Casandra Cerda MD [address] [place] [address] [facility] Ordered Prescriptions (unrec ognized section and content) Prescription Sig Dispensed Refills Start Date End Da te QUEtiapine (SEROQUEL) 25 MG tablet Take 1 tablet by mouth nightly 60 tablet 3 08/05/2020 INFORMATION SOURCE (unrecogn ized section and content) DATE CREATED AUTHOR [facility]12/2020 [facility] DATE CREATED AUTHOR AUTHOR'S ORGANIZ ATION 09/24/2021 [facility] DATE CREATED AUTHOR AUTHOR'S ORGANIZ ATION 07/20/2022 [facility] DATE CREATED AUTHOR AUTHOR'S ORGANIZ ATION 05/14/2023 [facility] Scheduled Active and Recently Administ ered Medications (unrecognized section and content) Medication Order 10/18/2020 10/19/2020 10/20/2020 cefTRIAXone (ROCEPHIN) 1000 mg IVPB in 50 mL D5W minibag (COMPLETED) 1,000 mg, Intravenous, ONCE, 1 dose, On Mon10/19/20 at 2014 2025 (New Bag - Provider: Sangeeta Bravo, RN)2148 (Stopped - Provider: Sangeeta Bravo, RN) donepezil (ARICEPT) tablet 10 mg 10 mg, Oral, 2 TIMES DAILY, First dose on Mon10/19/20 at 2300 2258 (Given - Provider: Maddi Núñez) 0842 (Given - Provider: Lisandra Johnson, HAFSA)2100 (Not Given - Provider: Dahiana Kilgore, HAFSA - Reason: Patient/family refused) enoxaparin (LOVENOX) injection 40 mg 40 mg, Subcutaneous, DAILY, First dose on Mon10/20/20 at 0900 0843 (Given - Provid er: Lisandra Johnson RN) levETIRAcetam (KEPPRA) tablet 500 mg 500 mg, Oral, 2 TIMES DAILY, First dose on Mon10/19/20 at 2300, Do not crush or chew. 2258 (Given - Provider: Maddi Núñez) 0842 (Given - Provider: Lisandra Johnson, HAFSA)2100 (Not Given - Provider: Dahiana Kilgore, RN - Reason: Patient/family refused) losartan (COZAAR) tablet 50 mg 50 mg, Oral, DAILY, First dose on Mon10/20/20 at 0900 0842 (Given - Provid er: Lisandra Johnson RN) QUEtiapine (SEROQUEL) tablet 25 mg 25 mg, Oral, NIGHTLY, First dose on Mon10/19/20 at 2300 2258 (Given - Provider: Maddi Núñez) 2100 (Not Given - Provider: Dahiana Kilgore, HAFSA - Reason: Patient/family refused) sertraline (ZOLOFT) tablet 100 mg 100 mg, Oral, DAILY, First dose on Mon10/20/20 at 0900 0842 (Given - Provid er: Lisandra Johnson RN) sodium chloride flush 0.9 % injection 5-40 mL 5-40 mL, Intravenous, EVERY 12 HOURS SCHEDULED (2 times per day), First dose on Mon10/19/20 at 2300, For Line Patency: Peripheral IV = 5 mL; Midline or Central Line = 10 mL/lumen. If following IV push medication, administer flush at same rate as the IV push. Flush volume is determined by type of infusion therapy being given. For non-viscous solutions use: Peripheral IV = 5 mL Midline or Central Line = 10 mL/lumen For viscous solutions (i.e. blood components, parenteral nutrition, contrast media, or after obtaining blood sample) use: Peripheral IV = 10 mL Midline or Central Line = 20 mL/lumen 2300 (Given - Provider: Maddi Núñez) 0843 (Given - Provider: Lisandra Johnson RN)2100 (Not Given - Provider: Dahiana Kilgore, HAFSA - Reason: Loss of IV access) therapeutic multivitamin-minerals 1 tablet 1 tablet, Oral, DAILY, First dose (after last modification) on Mon10/20/20 at 0900, Use pt's home supply, 0843 (Given - Provid er: Lisandra Johnson RN) Vitamin D (CHOLECALCIFEROL) tablet 2,000 Units 2,000 Units, Oral, DAILY, First dose on Mon10/20/20 at 0900 0842 (Given - Provid er: Lisandra Johnson RN) Continuous Medication Order 10/18/2020 10/19/2020 10/20/2020 0.9 % sodium chloride infusion (CANCELED) 1,000 mL, Intravenous, at 125 mL/hr, Administer over 8 Hours, CONTINUOUS, Starting on Mon10/19/20 at 1830 1851 (New Bag - Provider: Sangeeta Bravo RN)2205 (Handoff - Provider: Sangeeta Bravo RN)2300 (Stopped - Provider: Maddi Núñez) 0.9 % sodium chloride infusion Intravenous, at 85 mL/hr, CONTINUOUS, Starting on Mon10/19/20 at 2300 2235 (New Bag - Provider: Sofía Chavez RN) 0902 (New Bag - Provider: Lisandra Johnson RN)1847 (New Bag - Provider: Dahiana Kilgore RN) PRN Medication Order 10/18/2020 10/19/2020 10/20/2020 0.9 % sodium chloride infusion 25 mL, Intravenous, at 100 mL/hr, PRN, If patient receiving piggyback infusions without ordered maintenance IV fluids or with frequent/long duration piggyback infusions, Starting on Mon10/19/20 at 2231, Administer at the same rate as the piggyback being infused. acetaminophen (TYLENOL) suppository 650 mg(Linked Group 1) 650 mg, Rectal, EVERY 6 HOURS PRN, Pain Mild (1-3), Fever, For temp greater than 100.4 F (38 C), Starting on Mon10/19/20 at 2231, Administer if oral route cannot be used. acetaminophen (TYLENOL) tablet 650 mg(Linked Group 1) 650 mg, Oral, EVERY 6 HOURS PRN, Pain Mild (1-3), Fever, For temp greater than 100.4 F (38 C), Starting on Mon10/19/20 at 2231, Maximum dose of acetaminophen is 4000 mg from all sources in 24 hours. ondansetron (ZOFRAN) injection 4 mg(Linked Group 2) 4 mg, Intravenous, EVERY 6 HOURS PRN, Nausea, Vomiting, Starting on Mon10/19/20 at 2231, Administer if oral route cannot be used. ondansetron (ZOFRAN-ODT) disintegrating tablet 4 mg(Linked Group 2) 4 mg, Oral, EVERY 8 HOURS PRN, Nausea, Vomiting, Starting on Mon10/19/20 at 2231 polyethylene glycol (GLYCOLAX) packet 17 g 17 g, Oral, DAILY PRN, Constipation, Starting on Mon10/19/20 at 2231, First line therapy for constipation sodium chloride flush 0.9 % injection 10 mL 10 mL, Intravenous, PRN, Line Care, After every IV line use, Starting on Mon10/19/20 at 2231 Linked Groups Order Group 1: acetaminophen (TYLENOL) tablet 650 mgJump to med 650 mg, Oral, EVERY 6 HOURS PRN, Pain Mild (1-3), Fever, For temp greater than 100.4 F (38 C), Starting on Mon10/19/20 at 2231
Maximum dose of acetaminophen is 4000 mg from all sources in 24 hours.
Or acetaminophen (TYLENOL) suppository 650 mgJump to med 650 mg, Rectal, EVERY 6 HOURS PRN, Pain Mild (1-3), Fever, For temp greater than 100.4 F (38 C), Starting on Mon10/19/20 at 2231
Administer if oral route cannot be used.
Group 2: ondansetron (ZOFRAN-ODT) disintegrating tablet 4 mgJump to med 4 mg, Oral, EVERY 8 HOURS PRN, Nausea, Vomiting, Starting on Mon10/19/20 at 2231 Or ondansetron (ZOFRAN) injection 4 mgJump to med 4 mg, Intravenous, EVERY 6 HOURS PRN, Nausea, Vomiting, Starting on Mon10/19/20 at 2231
Administer if oral route cannot be used.
Care Teams (unrecognized sec tion and content) Color Printer Operator Relationship Specialty Start Date End Date Roque, Aye Thomas, [facility] [place] [address] PCP - General 01/02/12 FOR RECORDS PERTAINING TO PATIENTS WHO ARE OR HAVE BEEN ENROLLED IN A CHEMICAL DEPENDENCY/SUBSTANCEABUSE PROGRAM, SOME INFORMATION MAY BE OMITTED. This clinical summary was aggregated from multiple sources. Caution should be exercised in using it in the provision of clinical care. This summary normalizes information from multiple sources, and as a consequence, information in this document may materially change the coding, format and clinical context of patient data. In addition, data may be omitted in some cases. CLINICAL DECISIONS SHOULD BE BASED ON THE PRIMARY CLINICAL RECORDS. [email or web address] provides no warranty or guarantee of the accuracy or completeness of information in this document.
[2023-06-21] MEDS: 0.9 % SODIUM CHLORIDE 1,000 ML 999 ML IV (20:28)
[2023-06-21 20:43] LABS: Basophils Absolute Auto 0.1 10^3/uL (0.0-0.1); Basophils Percent Auto 0.9 % (0.2-2.0); Eosinophils Absolute Auto 0.2 10^3/uL (0.0-0.7); Eosinophils Percent Auto 1.5 % (0.9-7.0); Hematocrit 32.9 % (36.0-48.0); Hemoglobin 10.4 g/dL (12.0-16.0); Immature Granulocytes Abs Auto 0.05 10^3/uL (0.00-0.03); Immature Granulocytes Pct Auto 0.5 % (0.0-0.5); Lymphocytes Absolute Auto 3.8 10^3/uL (1.2-3.8); Lymphocytes Percent Auto 35.9 % (20.5-60.0); Mean Corpuscular HGB Conc 31.6 g/dL (29.9-35.2); Mean Corpuscular Hemoglobin 31.4 pg (26.7-34.0); Mean Corpuscular Volume 99.4 fL (81.0-99.0); Mean Platelet Volume 9.4 fL (9.5-13.5); Monocytes Percent Auto 9.2 % (1.7-12.0); Neutrophils Absolute Auto 5.5 10^3/uL (1.4-6.5); Platelet Count 210 10^3/uL (150-450); Red Blood Count 3.31 10^6/uL (4.20-5.40); Red Cell Distribution Width 12.6 % (11.0-15.0); White Blood Count 10.5 10^3/uL (4.0-11.0)
[2023-06-21 20:44] LABS: Bilirubin Urine NEGATIVE (NEGATIVE); Blood Urine NEGATIVE (NEGATIVE); Clarity Urine CLEAR (CLEAR); Color Urine LT. YELLOW (YELLOW); Glucose Urine UA NEGATIVE (NEGATIVE); Ketones Urine TRACE mg/dL (NEGATIVE); Leukocyte Esterase Urine NEGATIVE (NEGATIVE); Nitrite Urine NEGATIVE (NEGATIVE); Protein Urine NEGATIVE (NEG/TRACE); Urobilinogen Urine 0.2 EU/dL (0.2-1.0)
[2023-06-21 20:46] LABS: Urine Microscopic Indicated NO
[2023-06-21 21:05] LABS: Alanine Aminotransferase 10 U/L (14-59); Albumin Globulin Ratio 0.9; Albumin Level 2.8 g/dL (3.4-5.0); Alkaline Phosphatase 57 U/L (46-116); Aspartate Amino Transferase 13 U/L (15-37); BUN Creatinine Ratio 23.9; Bilirubin Total 0.3 mg/dL (0.2-1.0); Calcium 8.7 mg/dL (8.5-10.1); Carbon Dioxide 29.8 mmol/L (21.0-32.0); Chloride 103 mmol/L (98-107); Estimated GFR (African America >60 (>=60); Estimated GFR (Non-African Ame 58 (>=60); Globulin 3.1 g/dL; Glucose 103 mg/dL (74-106); Potassium 3.8 mmol/L (3.5-5.1); Sodium 140 mmol/L (136-145); Total Protein 5.9 g/dL (6.4-8.2)
== END 2023-06-21 22:11 | disposition home or self-care (01) ==
PROVIDERS: Emergency Provider Emergency Medicine; PCP Family Medicine
DX: F03.90 Unspecified dementia, unspecified severity, without behavioral disturbance, psychotic disturbance, mood disturbance, and anxiety (principal); Z87.891 Personal history of nicotine dependence
CPT/HCPCS: 36415; 80053; 81003; 85025; 93005; 99285

== ENCOUNTER 2023-06-25 00:41 | Inpatient (IN) | payer MEDICARE, SELFPAY ==
[2023-06-25] VITALS (21 sets, daily range): BP systolic 102–142; BP diastolic 58–82; PULSE 66–97; RESP 16–24; TEMP 36.2–37.4; O2SAT 3–99; BMI 24.6; BMI 28.1
--- NOTE | 2023-06-25 00:51 | ECG_ITS ---
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
--- NOTE | 2023-06-25 00:51 | XR_ITS ---
[facility] [place] [id number] Patient Name: JARROD CORTEZ MRN: [id number] date: 1940 Sex: F Assigned Patient Location: ER Current Patient Location: ER Accession/Order Number: [id number] Exam Date: 06/25/2023 01:15 Report Date: 06/25/2023 01:36 At the request of: BERNADINE MAXWELL Procedure: XR chest 1V EXAM: XR chest 1V HISTORY: shortness of breath COMPARISON: Chest radiograph dated 01/17/2023. TECHNIQUE: One view of the chest was obtained. FINDINGS: The cardiac silhouette is stable in size. Aortic atherosclerotic disease is seen. There are bilateral perihilar and left basilar patchy airspace opacities. There is no significant pneumothorax or pleural effusion. No acute osseous abnormality is seen. XR/XR chest 1V IMPRESSION: 1. Patchy left basilar airspace opacities are concerning for pneumonia. 2. Suspected central pulmonary edema. Electronically authenticated by: Jessica GARZA Date: 06/25/2023 01:36
--- NOTE | 2023-06-25 00:55 | ED.SOB1 ---
HPI - SOB/Dyspnea General Chief Complaint: Shortness of Breath/Dyspnea Stated Complaint: SOB Time Seen by Provider: 06/25/23 00:46 History of Present Illness HPI Narrative: Demented patient sent from the ID to our ED for evaluation of shortness of breath. The patient was evaluated by me at our ED on 06/21/23 for altered mental status and the workup was negative. The ID reported that they got a positive covid swab on 06/22/23. Tonight the patient became short of breath and EMS was called. EMS reported that the patient's room air pulse ox was only in the 70s and started her on oxygen before transporting her to our ED. Patient cannot give any HPI or ROS due to her dementia. Related Data Home Medications Medication Instructions Recorded Confirmed cyanocobalamin (vitamin B-12) 1,000 mcg PO DAILY 09/19/22 06/25/23 1,000 mcg capsule donepezil 10 mg tablet 10 mg PO BID 09/19/22 06/25/23 ferrous sulfate 325 mg (65 mg 325 mg PO DAILY 09/19/22 06/25/23 iron) tablet hyoscyamine sulfate 0.125 mg 0.125 mg PO Q4H PRN secretions 09/19/22 06/25/23 tablet (Levsin) ibuprofen 600 mg tablet 400 mg PO Q12H pain 09/19/22 06/25/23 levetiracetam 500 mg tablet 500 mg PO Q12H 09/19/22 06/25/23 (Keppra) memantine 5 mg tablet 5 mg PO BID 09/19/22 06/25/23 quetiapine 25 mg tablet (Seroquel) 25 mg PO DAILY 09/19/22 06/25/23 sertraline 100 mg tablet (Zoloft) 100 mg PO DAILY 09/19/22 06/25/23 simvastatin 20 mg tablet 20 mg PO DAILY 09/19/22 06/25/23 Tylenol ES 1,000 mg PO BID 06/25/23 06/25/23 acetaminophen 325 mg tablet (Aphen) 650 mg PO Q6H PRN fever or pain 06/25/23 06/25/23 fludrocortisone 0.1 mg tablet 0.1 mg PO DAILY 06/25/23 06/25/23 levothyroxine 50 mcg tablet 50 mcg PO DAILY 06/25/23 06/25/23 loperamide 2 mg capsule 2 mg PO Q12H 06/25/23 06/25/23 ondansetron HCl 4 mg tablet 4 mg PO Q6H PRN nausea and vomiting 06/25/23 06/25/23 Previous Rx's Medication Instructions Recorded cephalexin 500 mg capsule 500 mg PO QID 10 days #40 caps 03/17/23 sulfamethoxazole 800 1 tab PO BID 10 days #20 tabs 03/17/23 mg-trimethoprim 160 mg tablet (Bactrim DS) Allergies Allergy/AdvReac Type Severity Reaction Status Date / Time No Known Drug Allergies Allergy Verified 06/25/23 00:57 PFSH PFSH Social History Smoking status: Former smoker Exam Narrative Exam Narrative: Nurses notes and vital signs reviewed and patient is not hypoxic on arrival on 5LPM NC. However when we remove the patient's oxygen her O2 sat drops to 83%. She is HYPOXIC in the ED. afebrile General: tachypneic. Skin: Warm, dry, no pallor noted. Head: Normocephalic, atraumatic. Neck: Supple, non-tender. Eye: Pupils are equal, round and EOMI. No scleral icterus. Ears, Nose, Mouth, and Throat: Oral mucosa is dry Cardiovascular: Regular Rate and Rhythm without murmur, gallop or rub. Respiratory: Tachypnea. Lungs with diffuse rhonchi Musculoskeletal: no lower extremity edema/swelling GI: Abdomen is soft, non-distended. Normal bowel sounds. Neurological: Keeps eyes closed. moves her extremities to painful stimuli. Sensation intact. Psychiatric: Keeps eyes closed. Does not answer questions. Constitutional Vital Signs, click to edit/add: Last Vital Signs Temp 99.3 F 06/25/23 00:50 Pulse 97 H 06/25/23 01:49 Resp 24 06/25/23 01:49 BP 102/82 06/25/23 01:49 Pulse Ox 97 06/25/23 01:49 O2 Del Method Room Air 06/25/23 01:49 O2 Flow Rate 5 06/25/23 00:50 Course Vital Signs Vital signs: Vital Signs Temperature 99.3 F 06/25/23 00:50 Pulse Rate 87 06/25/23 00:50 Respiratory Rate 24 06/25/23 00:50 Blood Pressure 142/70 H 06/25/23 00:50 Pulse Oximetry 93 L 06/25/23 00:50 Oxygen Delivery Method Nasal Cannula 06/25/23 00:50 Oxygen Delivery Flow Rate 5 06/25/23 00:50 Temperature 99.3 F 06/25/23 00:50 Pulse Rate 97 H 06/25/23 01:49 Respiratory Rate 24 06/25/23 01:49 Blood Pressure 102/82 06/25/23 01:49 Pulse Oximetry 97 06/25/23 01:49 Oxygen Delivery Method Room Air 06/25/23 01:49 Oxygen Delivery Flow Rate 5 06/25/23 00:50 MDM - SOB/Dyspnea MDM Narrative Medical decision making narrative: Patient was placed on [facility]ante[facility] operator and EKG obtained. Blood drawn and sent for evaluation. She was taken off of oxygen so that we can get an ABG. Once that was obtained, she was placed back on oxygen and received an albuterol nebulizer treatment Portable chest x-ray obtained and shows patchy left basilar airspace opacities consistent with pneumonia while also showing central pulmonary edema. She is covid positive so pneumonia is viral. pH detailed below. Influenza negative. Confirmed Covid+. WBC decreased at 3.3. Unremarkable CMP. Troponin and BNP negative. Once patient's renal function found to be appropriate, the patient was sent for CT angio chest. CTA chest did not reveal PE - confirmed multifocal pneumonia with chronic interstitial lung disease. Tele hospitalist contacted to discuss admitting this patient for Covid-associated hypoxia. She agreed to have the patient admitted [facility] Dr Yousif's service. Medical Records Attestation: I reviewed the patient's medical records. Lab Data Attestation: I reviewed the patient's lab results. Labs: Lab Results 06/25/23 06/25/23 06/25/23 Range/Units 00:55 01:15 01:17 WBC 3.3 L (4.0-11.0) 10^3/uL RBC 4.19 L (4.20-5.40) 10^6/uL Hgb 12.9 (12.0-16.0) g/dL Hct 41.4 (36.0-48.0) % MCV 98.8 (81.0-99.0) fL MCH 30.8 (26.7-34.0) pg MCHC 31.2 (29.9-35.2) g/dL RDW 12.5 (11.0-15.0) % Plt Count 177 (150-450) 10^3/uL MPV 9.3 L (9.5-13.5) fL Seg Neuts % (Manual) 56.0 Band Neutrophils % 21.0 H (0-5) % Lymphocytes % (Manual) 12.0 L (20.5-60.0) % Monocytes % (Manual) 8.0 (1.7-12.0) % Eosinophils % (Manual) 0.0 L (0.9-7.0) % Basophils % (Manual) 0.0 L (0.2-2.0) % Metamyelocytes % 3.0 Neutrophils # (Manual) 1.84 (1.4-6.5) 10^3/uL Band Neutrophils # 0.7 H (0.0-0.3) 10^3/uL Lymphocytes # (Manual) 0.39 L (1.20-3.80) 10^3/uL Monocytes # (Manual) 0.26 L (0.30-0.80) 10^3/uL Eosinophils # (Manual) 0.00 (0.00-0.70) 10^3/uL Basophils # (Manual) 0.00 (0.00-0.10) 10^3/uL Metamyelocytes # 0.09 PT 10.4 (9.0-11.6) sec INR 0.98 APTT 27.3 (22.3-36.2) sec Puncture Site Rr ABG pH 7.424 (7.350-7.450) ABG pCO2 37.6 (35.0-45.0) mmHg ABG pO2 41.1 L* (80.0-100.0) mmHg ABG HCO3 24.6 (22.0-26.0) mmol/L ABG O2 Saturation 79.8 % ABG Base Excess 0.2 (-2.0-2.0) mmol/L Arthur Test Positive (POSITIVE) Sodium 141 (136-145) mmol/L Potassium 3.5 (3.5-5.1) mmol/L Chloride 104 (98-107) mmol/L Carbon Dioxide 28.6 (21.0-32.0) mmol/L Anion Gap 11.9 BUN 18.0 (7.0-18.0) mg/dL Creatinine 0.95 (0.55-1.02) mg/dL Est GFR ( Amer) >60 (>=60) Est GFR (Non-Af Amer) 56 L (>=60) BUN/Creatinine Ratio 18.9 Glucose 152 H (74-106) mg/dL Calcium 9.0 (8.5-10.1) mg/dL Total Bilirubin 0.5 (0.2-1.0) mg/dL AST 21 (15-37) U/L ALT 20 (14-59) U/L Alkaline Phosphatase 76 (46-116) U/L Troponin I High Sens 4.2 (4.0-51.3) pg/mL NT-Pro-B Natriuret Pep 278.0 (<=1800.0) pg/mL Total Protein 6.5 (6.4-8.2) g/dL Albumin 3.1 L (3.4-5.0) g/dL Globulin 3.4 g/dL Albumin/Globulin Ratio 0.9 Influenza Type A Ag Negative Influenza Type B Ag Negative SARS-CoV-2 Ag (CV2AG) Positive A (NEGATIVE) ABG Data ABG results: pH 7.424, pCO2 37.6, paO2 41.1, sat 79.8% on RA Attestation: I personally reviewed and interpreted this ABG as follows: Interpretation: marked hypoxia without respiratory acidosis or CO2 retention. Imaging Data CXR and CTA chest: Radiologist's impression: ITS Impressions Chest X-Ray 06/25/23 00:51 IMPRESSION: 1. Patchy left basilar airspace opacities are concerning for pneumonia. 2. Suspected central pulmonary edema. Electronically authenticated by: Jessica GARZA Date: 06/25/2023 01:36 Chest CTA 06/25/23 02:05 IMPRESSION: 1. Multifocal pneumonia with underlying chronic interstitial lung disease. No additional acute findings in the chest. 2. No aortic dissection or aneurysm. 3. Limited pulmonary arterial enhancement. No central pulmonary embolism through the main pulmonary artery level. 4. Coronary arterial calcifications. 5. Gastroesophageal reflux with mild nonspecific esophageal wall thickening favoring mild reflux esophagitis. Electronically authenticated by: ZIAN SWANSON Date: 06/25/2023 03:21 ECG Data Attestation: I personally reviewed and interpreted this ECG as follows: Interpretation: EKG interpretation: Emergency Department physician interpretation. Normal sinus rhythm at _bpm. Normal axis, normal intervals and no ST segment elevation or depression. Normal EKG. Discharge Plan Discharge Chief Complaint: Shortness of Breath/Dyspnea Clinical Impression: COVID, Hypoxia Patient Disposition: Admitted As Inpatient Time of Disposition Decision: 02:29
--- OUTSIDE RECORDS SUMMARY | 2023-06-25 01:07 | XMS_ITS | CCD ---
Author Name Unknown Address [address] [facility] [id number] [place] [address] Organization [facility] Care Team Providers Care Night Order Selector Name Role Phone Aye Nevarez Primary Care Provider DARIEN FERRARA Admitting Unavailable NANCY TRUJILLO Referring Unavailable AYE NEVAREZ Primary Care Unavailable HANSEL VERDUGO Consulting Unavailable DARLYN GARCIA Attending Unavailable TONY PARRISH Consulting Unavailable Aye Nevarez DO Primary Care Provider Aye Nevarez DO Primary Care Provider Aye Nevarez DO Primary Care Provider [phone] AYE NEVAREZ Referring Unavailable AYE NEVAREZ Primary Care Unavailable AYE NEVAREZ Primary Care Unavailable CASANDRA CERDA Admitting Unavailable CASANDRA CERDA Attending Unavailable AYE NEVAREZ Referring Unavailable AYE NEVAREZ Primary Care Unavailable WINNIE .ANN Consulting Unavailluciano e PAY ., DR FOY Attending Unavailable ROQUE, DR GRIFFITHS Admitting Unavailable ABE BOSCH Consulting Unavailable CLARE NUNN Consulting Unavailable KEVIN STIENER Admitting Unavailable KEVIN STEINER Attending Unavailable WINNIE [...] Substituted for Omeprazole (PRILOSEC). polyethylene glycol 3350 47304 mg powder for oral solution (2 sources) [...] 07-12-2022 Episodic Other aftercare (1 source) Other long term care phlebotomist (current) drug therapy; Translations: [OTH [facility]DC CURRENT DRUG THERAPY] Onset: 07-20-2022 Episodic Other [...] 05-09-2023 Bilirubin Ql (U) Negative Normal NEG [facility] Comment on above: Performed By: #### U A #### [facility] ([id number]) [address] [place] [address] [place] [address] BLOOD/HGB Negative Normal NEG [facility] Comment on above: Performed By: #### U A #### [facility] ([id number]) [address] [place] [address] [place] [address] Color (U) YELLOW Normal YELLOW [facility] Comment on above: Performed By: #### U A #### [facility] ([id number]) [address] [place] [address], [place] [address] Glucose Ql (U) Negative Normal NEG [facility] Comment on above: Performed By: #### U A #### [facility] ([id number]) [address] [place] [address] [place] [address] Ketones Ql (U) Negative Normal NEG [facility] Comment on above: Performed By: #### U A #### [facility] ([id number]) [address] [place] [address], [place] [address] Leukocyte esterase Test strip Ql (U) Negative Normal NEG [facility] Comment on above: Performed By: #### U A #### [facility] ([id number]) [address] [place] [address] [place] [address] Nitrite Ql (U) Negative Normal NEG [facility] Comment on above: Performed By: #### U A #### [facility] ([id number]) [address] [place] [address] pH (U) 6.5 [pH] Normal 5.0-8.5 [facility] Comment on above: Performed By: #### U A #### [facility] ([id number]) [address] [place] [address] Protein Ql (U) Negative Normal NEG [facility] Comment on above: Performed By: #### U A #### [facility] ([id number]) [address] [place] [address] Specific gravity (U) [Rel density] 1.010 Normal 1.003-1.035 [facility] Comment on above: Performed By: #### U A #### [facility] ([id number]) [address] [place] [address] TURBIDITY CLEAR Normal CLEAR [facility] Comment on above: Performed By: #### U A #### [facility] ([id number]) [address] [place] [address] Urinalysis dipstick W Reflex Microscopic panel (U) URINE RECEIVED WITHOUT PRESERVATIVE-DELAYS IN TRANSPORT MAY AFFECT RESULTS.INTERPRET WITH CAUTION AND CLINICAL CORRELATION IS RECOMMENDED. Normal [facility] Comment on above: Performed By: #### U A #### [facility] ([id number]) [address] [place] [address] Urobilinogen Qn (U) 0.2 {Kannan'U}/dL Normal <1.1 [facility] Comment on above: Performed By: #### U A #### [facility] ([id number]) [address] [place] [address] URINE CULTUREon 05-09-2023 Bacteria identified Cx Nom [...] F TRIMETH/SULFAMETHOXAZOL E S <=04/28 F Susceptible [facility] Comment on above: Performed By: #### 6 30-4 #### [facility] ([id number]) [address] [place] [address], [address] [place] [address] AMMONIAon 07-18-2022 Ammonia (P) [Mass/Vol] ug/dL Critically low -32 [facility] Comment on above: Performed By: #### H STROPN, TSH, CMP #### [facility] [address] [place] [address] Dr. King Moya CBC AUTO DIFFon 07-18-2022 BASO # 0.1 103/ul Normal 0.0-0.1 [facility] Comment on above: Performed By: #### C BC #### [facility] [address] [place] [address] Dr. King Moya Basophils/100 WBC (Bld) 0.7 % Normal 0.2-2.0 [facility] Comment on above: Performed By: #### C BC #### [facility] [address] [place] [address] Dr. King Moya EO # 0.1 103/ul Normal 0.0-0.7 [facility] Comment on above: Performed By: #### C BC #### [facility] [address] [place] [address] Dr. King Moya Eosinophils/100 WBC (Bld) 1.4 % Normal 0.9-7.0 [facility] Comment on above: Performed By: #### C BC #### [facility] [address] [place] [address] Dr. King Moya Erythrocyte distribution width (RBC) [Ratio] 12.7 % Normal 11.0-15.0 [facility] Comment on above: Performed By: #### C BC #### [facility] [address] [place] [address] Dr. King Moya Hematocrit (Bld) [Volume fraction] 32.5 % Critically low 36.0-48.0 [facility] Comment on above: Performed By: #### C BC #### [facility] [address] [place] [address] Dr. King Moya Hemoglobin (Bld) [Mass/Vol] 10.6 g/dL Critically low 12.0-16.0 [facility] Comment on above: Performed By: #### C BC #### [facility] [address] [place] [address] Dr. King Moya IG # 0.05 10e3/ul Critically high 0.00-0.03 [facility] Comment on above: Performed By: #### C BC #### [facility] [address] [place] [address] Dr. King Moya IG % 0.6 % Critically high 0.0-0.5 [facility] Comment on above: Performed By: #### C BC #### [facility] [address] [place] [address] Dr. King Moya LYMPH # 2.8 103/ul Normal 1.2-3.8 [facility] Comment on above: Performed By: #### C BC #### [facility] [address] [place] [address] Dr. King Moya Lymphocytes/100 WBC (Bld) 31.0 % Normal 20.5-60.0 [facility] Comment on above: Performed By: #### C BC #### [facility] [address] [place] [address] Dr. King Moya MANUAL DIFF REQ NO Normal [facility] Comment on above: Performed By: #### C BC #### [facility] [address] [place] [address] Dr. King Moya MCH (RBC) [Entitic mass] 31.5 pg Normal 26.7-34.0 [facility] Comment on above: Performed By: #### C BC #### [facility] [address] [address] [address] King Moya MCHC (RBC) [Mass/Vol] 32.6 g/dL Normal 29.9-35.2 [facility] Comment on above: Performed By: #### C BC #### [facility] [address] [address] [address] King Moya MCV (RBC) [Entitic vol] 96.4 fL Normal 81.0-99.0 [facility] Comment on above: Performed By: #### C BC #### [facility] [address] [place] [address] Dr. King Moya MONO # 0.8 103/ul Normal 0.3-0.8 [facility] Comment on above: Performed By: #### C BC #### [facility] [address] [place] [address] Dr. King Moya Monocytes/100 WBC (Bld) 9.1 % Normal 1.7-12.0 [facility] Comment on above: Performed By: #### C BC #### [facility] [address] [place] [address] Dr. King Moya NEUT # 5.1 103/ul Normal 1.4-6.5 [facility] Comment on above: Performed By: #### C BC #### [facility] [address] [place] [address] Dr. King Moya Neutrophils/100 WBC (Bld) 57.2 % Normal 43.0-75.0 [facility] Comment on above: Performed By: #### C BC #### [facility] [address] [place] [address] Dr. King Moya Platelet mean volume (Bld) [Entitic vol] 9.2 fL Critically low 9.5-13.5 [facility] Comment on above: Performed By: #### C BC #### [facility] [address] [place] [address] Dr. King Moya PLT 258 103/ul Normal 150-450 [facility] Comment on above: Performed By: #### C BC #### [facility] [address] [address] [address] King Moya RBC 3.37 106/ul Critically low 4.20-5.40 [facility] Comment on above: Performed By: #### C BC #### [facility] [address] [place], [place] [address] Dr. King Moya WBC 8.9 103/ul Normal 4.0-11.0 [facility] Comment on above: Performed By: #### C BC #### [facility] [address] [address] [address] King Moya Covid-19 PCR ([facility])on 07-09 SARS-CoV-2 (COVID-19) RNA TEMO+probe Ql (Unsp spec) Not detected Normal NOT DETECTED [facility] Comment on above: Result Comment: When diagnostic [...] for this test is supported by the [place] of Health and Human Service's declaration that [...] By: #### H STROPN, TSH, CMP #### [facility] [address] [place], [place] [id number] Dr. King Moya ER URINE PROFILEon 3 Bilirubin Ql (U) Negative Normal NEGATIVE [facility] Comment on above: Performed By: #### E RUR #### [facility] [address] [place] [address] Dr. King Moya Clarity (U) CLEAR Normal CLEAR [facility] Comment on above: Performed By: #### E RUR #### [facility] [address] [place] [address] Dr. King Moya Color (U) YELLOW Normal YELLOW [facility] Comment on above: Performed By: #### E RUR #### [facility] [address] [place] [address] Dr. King Moya ERUAHEddie A micrscopic examination will be performed if indicated. Normal [facility] Comment on above: Performed By: #### E RUR #### [facility] [address] [place] [address] Dr. King Moya Glucose Ql (U) Negative Normal NEGATIVE [facility] Comment on above: Performed By: #### E RUR #### [facility] [address] [place] [address] Dr. King Moya Hemoglobin Ql (U) Negative Normal NEGATIVE [facility] Comment on above: Performed By: #### E RUR #### [facility] [address] [place] [address] Dr. King Moya Ketones Ql (U) 40 mg/dl Abnormal NEGATIVE [facility] Comment on above: Performed By: #### E RUR #### [facility] [address] [place] [address] Dr. iKng Moya LEUKOCYTES Negative Normal NEGATIVE [facility] Comment on above: Performed By: #### E RUR #### [facility] [address] [place] [address] Dr. King Moya Nitrite Ql (U) Negative Normal NEGATIVE [facility] Comment on above: Performed By: #### E RUR #### [facility] [address] [place] [address] Dr. King Moya pH (U) 6.5 [pH] Normal 5-9 [facility] Comment on above: Performed By: #### E RUR #### [facility] [address] [place] [address] Dr. King Moya SPEC GRAVITY 1.020 Normal 1.005-<=1.02 5 [facility] Comment on above: Performed By: #### E RUR #### [facility] [address] [place] [address] Dr. King Moya UA PROTEIN Negative Normal NEGATIVE/ TRACE [facility] Comment on above: Performed By: #### E RUR #### [facility] [address] [place] [address] Dr. King Moya UR MICRO IND NOT INDICATED Normal [facility] Comment on above: Performed By: #### E RUR #### [facility] [address] [place] [address] Dr. King Moya Urobilinogen Qn (U) 0.2 {Kannan'U}/dL Normal 0.2 - 1. 0 [facility] Comment on above: Performed By: #### E RUR #### [facility] [address] [place] [address] Dr. King Moya FREE T3on 07-18-2022 FREE T3 1.64 pg/mlL Critically low 2.18-3.98 [facility] Comment on above: Performed By: #### H STROPN, TSH, CMP #### [facility] [address] [place] [address] Dr. King Moya FREE T4on 07-18-2022 Free T4 [Mass/Vol] 0.73 ng/dL Critically low 0.76-1.46 [facility] Comment on above: Performed By: #### H STROPN, TSH, CMP #### [facility] [address] [place] [address] Dr. King Moya LACTATE/LACTIC ACIDon 2022 Lactate [Moles/Vol] 1.1 mmol/L Normal 0.4-2.0 [facility] Comment on above: Performed By: #### L ACT #### [facility] [address] [place] [address] Dr. King Moya PROF 14(COMP METB)on 023 Albumin [Mass/Vol] 2.9 g/dL Critically low 3.4-5.[address] [facility] Comment on above: Performed By: #### H STROPN, TSH, CMP #### [facility] [address] [address] [address] King Moya Albumin/Globulin [Mass ratio] 0.9 {ratio} Normal [facility] Comment on above: Performed By: #### H STROPN, TSH, CMP #### [facility] [address] [address] [address] King Moya ALP [Catalytic activity/Vol] 68 U/L Normal 46-116 [facility] Comment on above: Performed By: #### H STROPN, TSH, CMP #### [facility] [address] [address] [address] King Moya ALT [Catalytic activity/Vol] 12 U/L Critically low 14-59 [facility] Comment on above: Performed By: #### H STROPN, TSH, CMP #### [facility] [address] [address] [address] King Moya Anion gap [Moles/Vol] 8.6 mmol/L Normal [facility] Comment on above: Performed By: #### H STROPN, TSH, CMP #### [facility] [address] [address] [address] King Moya AST [Catalytic activity/Vol] 16 U/L Normal 15-37 [facility] Comment on above: Performed By: #### H STROPN, TSH, CMP #### [facility] [address] [address] [address] King Moya Bilirubin [Mass/Vol] 0.1 mg/dL Critically low 0.2-1.0 [facility] Comment on above: Performed By: #### H STROPN, TSH, CMP #### [facility] [address] [address] [address] King Moya Calcium [Mass/Vol] 8.4 mg/dL Critically low 8.5-10.[address] [facility] Comment on above: Performed By: #### H STROPN, TSH, CMP #### [facility] [address] [address] [address] King Moya Chloride [Moles/Vol] 106 mmol/L Normal 98-107 [facility] Comment on above: Performed By: #### H STROPN, TSH, CMP #### [facility] [address] [place] [address] Dr. King Moya CO2 [Moles/Vol] 29.3 mmol/L Normal 21.0-32.0 [facility] Comment on above: Performed By: #### H STROPN, TSH, CMP #### [facility] [address] [place] [address] Dr. King Moya Creatinine [Mass/Vol] 1.19 mg/dL Critically high 0.55-1.02 [facility] Comment on above: Performed By: #### H STROPN, TSH, CMP #### [facility] [address] [place] [address] Dr. King Moya EGFR-AF SWAZI 53 mL/min/1.73m2 Critically low >=60 [facility] Comment on above: Performed By: #### H STROPN, TSH, CMP #### [facility] [address] [place] [address] Dr. King Moya EGFR-NON AF SWAZI 43 mL/min/1.73m2 Critically low >=60 [facility] Comment on above: Performed By: #### H STROPN, TSH, CMP #### [facility] [address] [place] [address] Dr. King Moya Globulin (S) [Mass/Vol] 3.1 g/dL Normal [facility] Comment on above: Performed By: #### H STROPN, TSH, CMP #### [facility] [address] [place] [address] Dr. King Moya Glucose [Mass/Vol] 105 mg/dL Normal 74-106 [facility] Comment on above: Performed By: #### H STROPN, TSH, CMP #### [facility] [address] [place] [address] Dr. King Moya Potassium [Moles/Vol] 4.9 mmol/L Normal 3.5-5.1 [facility] Comment on above: Performed By: #### H STROPN, TSH, CMP #### [facility] [address] [address] [address] King Moya Protein [Mass/Vol] 6.0 g/dL Critically low 6.4-8.2 [facility] Comment on above: Performed By: #### H STROPN, TSH, CMP #### [facility] [address] [address] [address] King Moya Sodium [Moles/Vol] 139 mmol/L Normal 136-145 [facility] Comment on above: Performed By: #### H STROPN, TSH, CMP #### [facility] [address] [address] [address] King Moya Urea nitrogen [Mass/Vol] 19.0 mg/dL Critically high 7.0-18.0 [facility] Comment on above: Performed By: #### H STROPN, TSH, CMP #### [facility] [address] [place] [address] Dr. King Moya Urea nitrogen/Creatinine [Mass ratio] 16.0 mg/mg Normal [facility] Comment on above: Performed By: #### H STROPN, TSH, CMP #### [facility] [address] [place] [address] Dr. King Moya PROTIMEon 07-18-2022 INR Coag (PPP) [Relative time] 0.97 {INR} Normal [facility] Comment on above: Performed By: #### P T, PTT #### [facility] [address] [place] [address] Dr. King Moya INR GUIDELINES SEE BELOW Normal [facility] Comment on above: Result Comment: LORRI RED INR: 2.0 - 3.0 CONDITIONS NOT LISTED BELOW 2.5 - 3.5 FOR PROSTHETIC HEART VALVE REPLACEMENT 2.5 - 3.5 RECURRENT THROMBOSIS Performed By: #### P T, PTT #### [facility] [address] [place] [address] Dr. King Moya PT Coag (PPP) [Time] 10.3 s Normal 9.0-11.6 [facility] Comment on above: Performed By: #### P T, PTT #### [facility] [address] [address] [address] King Moya PTTon 07-18-2022 aPTT Coag (Bld) [Time] 23.2 s Normal 22.3-36.[address] [facility] Comment on above: Performed By: #### P T, PTT #### [facility] [address] [place] [address] Dr. King Moya TROPONIN, HIGH SENSITIVITYon 07-18-2022 HSTROP 8.6 pg/mL Normal 4.0-51.3 [facility] Comment on above: Result Comment: CUT- OFF POINTS HAVE BEEN ESTABLISHED BASED ON THE FOURTH UNIVERSAL DEFINITIONS OF MYOCARDIAL INFARCTION. THE UPPER REFERENCE LIMIT (URL) OF TROPONIN, DEFINED THE 99TH PERCENTILE OF cTnI DISTRIBUTION IN A REFERENCE POPULATION, HAS BEEN CONFIRMED THE DECISION THRESHOLD FOR [place] DIAGNOSIS. Performed By: #### H STROPN, TSH, CMP #### [facility] [address] [place] [address] Dr. King Moya TSHon 07-18-2022 TSH 8.354 uIU/mL Critically high 0.358-3.740 [facility] Comment on above: Performed By: #### H STRORODRIGO, TSH, CMP #### [facility] [address] [place] [address] Dr. King Moya XR CHEST 1 Von 07-18-2022 XR CHEST 1 V CHEST X-RAY, 1 VIEW HISTORY: Hypotension. COMPARISON: 07/08/2022. FINDINGS: The cardiac silhouette is normal in size. There are aortic calcifications. The lungs are grossly clear. There are no pleural effusions. There is no pneumothorax. IMPRESSION: No evidence of acute cardiopulmonary disease. Electronically authenticated by: DAVIN CLAYTON Date: 2022-07-18 19:20 Normal [facility] CULTURE URINEon 07-11-2022 CULTURE URINE Isolate 1 [...] Trimethoprim/Sulfametho xazole <=20 S F Normal [facility] Comment on above: Performed By: #### H STRORODRIGO, TSH, CMP #### [facility] [address] [place] [address] Dr. King Moya ACETONE SERUMon 07-08-2022 ACETONE Negative Normal NEGATIVE [facility] Comment on above: Performed By: #### A CETON #### [facility] [address] [place] [address] Dr. King Moya CBC AUTO DIFFon 07-08-2022 BASO # 0.1 103/ul Normal 0.0-0.1 [facility] Comment on above: Performed By: #### H STRORODRIGO TSH, CMP #### [facility] [address] [place] [address] Dr. King Moya Basophils/100 WBC (Bld) 0.7 % Normal 0.2-2.0 [facility] Comment on above: Performed By: #### H WILMA TSH, CMP #### [facility] [address] [place] [address] Dr. King Moya EO # 0.1 103/ul Normal 0.0-0.7 [facility] Comment on above: Performed By: #### H STRORODRIGO, TSH, CMP #### [facility] [address] [place] [address] Dr. King Moya Eosinophils/100 WBC (Bld) 1.5 % Normal 0.9-7.0 [facility] Comment on above: Performed By: #### H STRORODRIGO TSH, CMP #### [facility] [address] [place] [address] Dr. King Moya Erythrocyte distribution width (RBC) [Ratio] 12.8 % Normal 11.0-15.0 [facility] Comment on above: Performed By: #### H STROPN, TSH, CMP #### [facility] [address] [address] [address] King Moya Hematocrit (Bld) [Volume fraction] 35.5 % Critically low 36.0-48.0 [facility] Comment on above: Performed By: #### H STROPN, TSH, CMP #### [facility] [address] [address] [address] King Moya Hemoglobin (Bld) [Mass/Vol] 11.6 g/dL Critically low 12.0-16.0 [facility] Comment on above: Performed By: #### H STROPN, TSH, CMP #### [facility] [address] [place] [address] Dr. King Moya IG # 0.05 10e3/ul Critically high 0.00-0.03 [facility] Comment on above: Performed By: #### H STROPN, TSH, CMP #### [facility] [address] [place] [address] Dr. King Moya IG % 0.6 % Critically high 0.0-0.5 [facility] Comment on above: Performed By: #### H STROPN, TSH, CMP #### [facility] [address] [address] [address] King Moya LYMPH # 2.8 103/ul Normal 1.2-3.8 [facility] Comment on above: Performed By: #### H STROPN, TSH, CMP #### [facility] [address] [address] [address] King Moya Lymphocytes/100 WBC (Bld) 31.8 % Normal 20.5-60.0 [facility] Comment on above: Performed By: #### H STROPN, TSH, CMP #### [facility] [address] [address] [address] King Moya MANUAL DIFF REQ NO Normal [facility] Comment on above: Performed By: #### H STROPN, TSH, CMP #### [facility] [address] [place] [address] Dr. King Moya MCH (RBC) [Entitic mass] 31.1 pg Normal 26.7-34.0 [facility] Comment on above: Performed By: #### H STROPN, TSH, CMP #### [facility] [address] [address] [address] King Moya MCHC (RBC) [Mass/Vol] 32.7 g/dL Normal 29.9-35.2 [facility] Comment on above: Performed By: #### H STROPN, TSH, CMP #### [facility] [address] [place] [address] Dr. King Moya MCV (RBC) [Entitic vol] 95.2 fL Normal 81.0-99.0 [facility] Comment on above: Performed By: #### H STROPN, TSH, CMP #### [facility] [address] [place] [address] Dr. King Moya MONO # 0.7 103/ul Normal 0.3-0.8 [facility] Comment on above: Performed By: #### H STROPN, TSH, CMP #### [facility] [address] [place] [address] Dr. King Moya Monocytes/100 WBC (Bld) 7.8 % Normal 1.7-12.0 [facility] Comment on above: Performed By: #### H STROPN, TSH, CMP #### [facility] [address] [place] [address] Dr. King Moya NEUT # 5.1 103/ul Normal 1.4-6.5 [facility] Comment on above: Performed By: #### H STROPN, TSH, CMP #### [facility] [address] [place] [address] Dr. King Moya Neutrophils/100 WBC (Bld) 57.6 % Normal 43.0-75.0 [facility] Comment on above: Performed By: #### H STROPN, TSH, CMP #### [facility] [address] [place] [address] Dr. King Moya Platelet mean volume (Bld) [Entitic vol] 9.1 fL Critically low 9.5-13.5 [facility] Comment on above: Performed By: #### H STROPN, TSH, CMP #### [facility] [address] [place], [place] [address] Dr. King Moya PLT 253 103/ul Normal 150-450 [facility] Comment on above: Performed By: #### H STROPN, TSH, CMP #### [facility] [address] [address] [address] King Moya RBC 3.73 106/ul Critically low 4.20-5.40 [facility] Comment on above: Performed By: #### H STROPN, TSH, CMP #### [facility] [address] [address] [address] King Moya WBC 8.9 103/ul Normal 4.0-11.0 [facility] Comment on above: Performed By: #### H STROPN, TSH, CMP #### [facility] [address] [address] [address] STROKE HEAD WOon [...] ABE BOSCH Date: 2022-07-08 19:27 Normal [facility] ER URINE PROFILEon 3 Bilirubin Ql (U) Negative Normal NEGATIVE [facility] Comment on above: Performed By: #### H STROPN, TSH, CMP #### [facility] [address] [address] [address] King Moya Clarity (U) CLEAR Normal CLEAR [facility] Comment on above: Performed By: #### H STROPN, TSH, CMP #### [facility] [address] [address] [address] King Moya Color (U) YELLOW Normal YELLOW [facility] Comment on above: Performed By: #### H STROPN, TSH, CMP #### [facility] [address] [place] [address] Dr. King MELISSA A micrscopic examination will be performed if indicated. Normal [facility] Comment on above: Performed By: #### H STROPN, TSH, CMP #### [facility] [address] [place] [address] Dr. King Moya Glucose Ql (U) Negative Normal NEGATIVE [facility] Comment on above: Performed By: #### H STROPN, TSH, CMP #### [facility] [address] [place] [address] Dr. King Moya Hemoglobin Ql (U) Negative Normal NEGATIVE [facility] Comment on above: Performed By: #### H STROPN, TSH, CMP #### [facility] [address] [place] [address] Dr. King Moya Ketones Ql (U) TRACE Abnormal NEGATIVE [facility] Comment on above: Performed By: #### H STROPN, TSH, CMP #### [facility] [address] [address] [address] iKng Moya LEUKOCYTES TRACE Abnormal NEGATIVE [facility] Comment on above: Performed By: #### H STROPN, TSH, CMP #### [facility] [address] [place] [address] Dr. King Moya Nitrite Ql (U) Negative Normal NEGATIVE [facility] Comment on above: Performed By: #### H STROPN, TSH, CMP #### [facility] [address] [address] [address] King Moya pH (U) 5.0 [pH] Normal 5-9 [facility] Comment on above: Performed By: #### H STROPN, TSH, CMP #### [facility] [address] [place] [address] Dr. King Moya SPEC GRAVITY >=1.030 Abnormal 1.005-<=1.02 5 [facility] Comment on above: Performed By: #### H STROPN, TSH, CMP #### [facility] [address] [place] [address] Dr. King Moya UA PROTEIN TRACE Normal NEGATIVE/ TRACE [facility] Comment on above: Performed By: #### H STROPN, TSH, CMP #### [facility] [address] [place] [address] Dr. King Moya UR MICRO IND INDICATED Normal [facility] Comment on above: Performed By: #### H STROPN, TSH, CMP #### [facility] [address] [place] [address] Dr. King Moya Urobilinogen Qn (U) 0.2 {Kannan'U}/dL Normal 0.2 - 1. 0 [facility] Comment on above: Performed By: #### H STROPN, TSH, CMP #### [facility] [address] [place] [address] Dr. King Moya LACTATE/LACTIC ACIDon 2022 Lactate [Moles/Vol] 1.1 mmol/L Normal 0.4-2.0 [facility] Comment on above: Performed By: #### L ACT #### [facility] [address] [place] [address] Dr. King Moya PROF 14(COMP METB)on 023 Albumin [Mass/Vol] 3.5 g/dL Normal 3.4-5.0 [facility] Comment on above: Performed By: #### H STROPN, TSH, CMP #### [facility] [address] [place] [address] Dr. King Moya Albumin/Globulin [Mass ratio] 1.2 {ratio} Normal [facility] Comment on above: Performed By: #### H STROPN, TSH, CMP #### [facility] [address] [place] [address] Dr. King Moya ALP [Catalytic activity/Vol] 58 U/L Normal 46-116 [facility] Comment on above: Performed By: #### H STROPN, TSH, CMP #### [facility] [address] [address] [address] King Moya ALT [Catalytic activity/Vol] 14 U/L Normal 14-59 [facility] Comment on above: Performed By: #### H STROPN, TSH, CMP #### [facility] [address] [address] [address] King Moya Anion gap [Moles/Vol] 10.7 mmol/L Normal [facility] Comment on above: Performed By: #### H STROPN, TSH, CMP #### [facility] [address] [address] [address] King Moya AST [Catalytic activity/Vol] 11 U/L Critically low 15-37 [facility] Comment on above: Performed By: #### H STROPN, TSH, CMP #### [facility] [address] [address] [address] King Moya Bilirubin [Mass/Vol] 0.2 mg/dL Normal 0.2-1.0 [facility] Comment on above: Performed By: #### H STROPN, TSH, CMP #### [facility] [address] [address] [address] King Moya Calcium [Mass/Vol] 9.2 mg/dL Normal 8.5-10.1 [facility] Comment on above: Performed By: #### H STROPN, TSH, CMP #### [facility] [address] [address] [address] King Moya Chloride [Moles/Vol] 105 mmol/L Normal 98-107 [facility] Comment on above: Performed By: #### H STROPN, TSH, CMP #### [facility] [address] [address] [address] King Moya CO2 [Moles/Vol] 28.7 mmol/L Normal 21.0-32.0 [facility] Comment on above: Performed By: #### H STROPN, TSH, CMP #### [facility] [address] [address] [address] King Moya Creatinine [Mass/Vol] 1.39 mg/dL Critically high 0.55-1.02 [facility] Comment on above: Performed By: #### H STROPN, TSH, CMP #### [facility] [address] [address] [address] King Moya EGFR-AF SWAZI 44 mL/min/1.73m2 Critically low >=60 [facility] Comment on above: Performed By: #### H STROPN, TSH, CMP #### [facility] [address] [address] [address] King Moya EGFR-NON AF SWAZI 36 mL/min/1.73m2 Critically low >=60 [facility] Comment on above: Performed By: #### H STROPN, TSH, CMP #### [facility] [address] [place] [address] Dr. King Moya Globulin (S) [Mass/Vol] 2.9 g/dL Normal [facility] Comment on above: Performed By: #### H STROPN, TSH, CMP #### [facility] [address] [place] [address] Dr. King Moya Glucose [Mass/Vol] 119 mg/dL Critically high 74-106 [facility] Comment on above: Performed By: #### H STROPN, TSH, CMP #### [facility] [address] [place] [address] Dr. King Moya Potassium [Moles/Vol] 4.4 mmol/L Normal 3.5-5.1 [facility] Comment on above: Performed By: #### H STROPN, TSH, CMP #### [facility] [address] [place] [address] Dr. King Moya Protein [Mass/Vol] 6.4 g/dL Normal 6.4-8.2 [facility] Comment on above: Performed By: #### H STROPN, TSH, CMP #### [facility] [address] [place] [address] Dr. King Moya Sodium [Moles/Vol] 140 mmol/L Normal 136-145 [facility] Comment on above: Performed By: #### H STROPN, TSH, CMP #### [facility] [address] [place] [address] Dr. King Moya Urea nitrogen [Mass/Vol] 24.0 mg/dL Critically high 7.0-18.0 [facility] Comment on above: Performed By: #### H WILMA TSH, CMP #### [facility] [address] [address] [address] King Moya Urea nitrogen/Creatinine [Mass ratio] 17.3 mg/mg Normal [facility] Comment on above: Performed By: #### H WILMA TSH, CMP #### [facility] [address] [address] [address] King Moya PROTIMEon 07-08-2022 INR Coag (PPP) [Relative time] 0.97 {INR} Normal [facility] Comment on above: Performed By: #### H ALEKSEY DILLON, CMP #### [facility] [address] [place] [address] Dr. King Moya INR GUIDELINES SEE BELOW Normal [facility] Comment on above: Result Comment: LORRI RED INR: 2.0 - 3.0 CONDITIONS NOT LISTED BELOW 2.5 - 3.5 FOR PROSTHETIC HEART VALVE REPLACEMENT 2.5 - 3.5 RECURRENT THROMBOSIS Performed By: #### H ALEKSEY DILLON, CMP #### [facility] [address] [address] [address] King Moya PT Coag (PPP) [Time] 10.3 s Normal 9.0-11.6 [facility] Comment on above: Performed By: #### H WILMA TSH, CMP #### [facility] [address] [address] [address] King Moya PTTon 07-08-2022 aPTT Coag (Bld) [Time] 24.8 s Normal 22.3-36.[address] [facility] Comment on above: Performed By: #### H WILMA TSH, CMP #### [facility] [address] [place] [address] Dr. King Moya TROPONIN, HIGH SENSITIVITYon 07-08-2022 HSTROP 5.9 pg/mL Normal 4.0-51.3 [facility] Comment on above: Result Comment: CUT- OFF POINTS HAVE BEEN ESTABLISHED BASED ON THE FOURTH UNIVERSAL DEFINITIONS OF MYOCARDIAL INFARCTION. THE UPPER REFERENCE LIMIT (URL) OF TROPONIN, DEFINED THE 99TH PERCENTILE OF cTnI DISTRIBUTION IN A REFERENCE POPULATION, HAS BEEN CONFIRMED THE DECISION THRESHOLD FOR [place] DIAGNOSIS. Performed By: #### H STROPN, TSH, CMP #### [facility] [address] [address] [address] King Moya TSHon 07-08-2022 TSH 6.513 uIU/mL Critically high 0.358-3.740 [facility] Comment on above: Performed By: #### H STROPN, TSH, CMP #### [facility] [address] [address] [address] King Moya URINE MICROSCOPIC ONLYon BACTERIA TRACE Abnormal NONE SEEN [facility] Comment on above: Performed By: #### H STROPN, TSH, CMP #### [facility] [address] [place] [address] Dr. King Moya Bacteria identified Cx Nom (U) INDICATED Normal [facility] Comment on above: Performed By: #### H STROPN, TSH, CMP #### [facility] [address] [place] [address] Dr. King Moya CAST SEEN Abnormal NONE SEEN [facility] Comment on above: Performed By: #### H STROPN, TSH, CMP #### [facility] [address] [place] [address] Dr. King Moya Crystals LM Nom (Urine sed) NONE SEEN Normal NONE SEEN [facility] Comment on above: Performed By: #### H STROPN, TSH, CMP #### [facility] [address] [place] [address] Dr. King Moya Epithelial cells LM Ql (Urine sed) RARE Normal NONE SEEN /RARE [facility] Comment on above: Performed By: #### H STROPN, TSH, CMP #### [facility] [address] [place] [address] Dr. King Moya HYALINE CAST RARE Normal [facility] Comment on above: Performed By: #### H STROPN, TSH, CMP #### [facility] [address] [address] [address] King Moya MUCOUS NONE SEEN Normal NONE SEEN [facility] Comment on above: Performed By: #### H STROPN, TSH, CMP #### [facility] [id number] King Moya RBC 0-2 Normal 0-2 [facility] Comment on above: Performed By: #### H LAYLAPN, TSH, CMP #### [facility] [id number] King Moya WBC 5-10 Abnormal NONE SEEN [facility] Comment on above: Performed By: #### H STROPN, TSH, CMP #### [facility] [address] [address] [address] King Moya XR CHEST 1 Von 07-08-2022 XR CHEST 1 V EXAM: XR CHEST 1 V HISTORY: SHORTNESS OF BREATH COMPARISON: None. TECHNIQUE: Single view of the chest FINDINGS: Heart size normal. No focal consolidation, pleural effusion, pulmonary congestion or pneumothorax. IMPRESSION: No acute findings. Electronically authenticated by: CLARE NUNN Date: 2022-07-08 20:02 Normal [facility] CBC with Auto Differentialon 09-23-2021 Absolute Eos # 0.37 [place] [facility] Absolute Immature Granulocyte 0.05 [facility] Absolute Lymph # 2.[address] Absolute [place] # 0.90 [facility] Basophils (Bld) [#/Vol] 0.10 10*3/uL [facility] Basophils/100 WBC (Bld) 1 % 0 - 2 % [facility] Eosinophils/100 WBC (Bld) 4 % 1 - 4 % [facility] Hematocrit (Bld) [Volume fraction] 35.5 % Low 36.3 - 47.1 % [facility] Hemoglobin (Bld) [Mass/Vol] 11.1 g/dL Low 11.9 - 15.1 g/dL [facility] Immature granulocytes/100 WBC (Bld) 1 % High 0 [facility] Interpretation and review of laboratory results Abnormal [facility] Lymphocytes/100 WBC (Bld) 28 % 24 - 43 % [facility] MCH (RBC) [Entitic mass] 31.4 pg 25.2 - 33.5 pg [facility] MCHC (RBC) [Mass/Vol] 31.3 g/dL 28.4 - 34.8 g/dL [facility] MCV (RBC) [Entitic vol] 100.3 fL 82.6 - 102.9 fL [facility] Monocytes/100 WBC (Bld) 9 % 3 - 12 % [facility] NRBC Automated 0.0 0.0 per 100 WBC [facility] Platelet distribution width (Bld) [Ratio] 11.9 % 11.8 - 14.4 % [facility] Platelet mean volume (Bld) [Entitic vol] 9.2 fL 8.1 - 13.5 fL [facility] Platelets (Bld) [#/Vol] 325 10*3/uL [facility] RBC (Bld) [#/Vol] 3.54 10*6/uL Low 3.95 - 5.1 1 m/uL [facility] Segmented neutrophils/100 WBC (Bld) 57 % 36 - 65 % [facility] Segs Absolute 6.06 [facility] WBC (Bld) [#/Vol] 10.4 10*3/uL [facility] CBC with Diffon 09-23-2021 Abs. Basophil 0.10 k/uL Normal 0.00-0.20 [facility] Comment on above: Performed By: #### C DP, CP #### [facility] [address] [place] [address] [place] [address] Analytic Manager: Emerson Hall MD #### LIPR #### [address] [address] Analytic Manager: Kyle Cowan MD Abs.Imm.Granulocyte 0.05 k/uL Normal 0.00-0.30 [place] Comment on above: Performed By: #### C DP, CP #### [facility] [address] [place] [id number] Analytic Manager: Emerson Hall MD #### LIPR #### [address] [id number] Analytic Manager: Kyle Cowan MD Abs.Neutrophil (Seg) 6.06 k/uL Normal 1.50-8.10 [facility] Comment on above: Performed By: #### C DP, CP #### [address] [place] [id number] Analytic Manager: Emerson Hall MD #### LIPR #### [address] [id number] Analytic Manager: Kyle Cowan MD Basophils/100 WBC (Bld) 1 % Normal 0-2 [place] Comment on above: Performed By: #### C DP, CP #### [address] [place] [address] Analytic Manager: Emerson Hall MD #### LIPR #### [place] [address] Analytic Manager: Kyle Cowan MD Eosinophils (Bld) [#/Vol] 0.37 10*3/uL Normal 0.00-0.44 [place] Comment on above: Performed By: #### C DP, CP #### [address] [place] [id number] Analytic Manager: Emerson Hall MD #### LIPR #### [place] [address] Analytic Manager: Kyle Cowan MD Eosinophils/100 WBC (Bld) 4 % Normal 1-4 [place] Comment on above: Performed By: #### C DP, CP #### [address] [place] [id number] Analytic Manager: Emerson Hall MD #### LIPR #### [address] [id number] Analytic Manager: Kyle Cowan MD Erythrocyte distribution width (RBC) [Ratio] 11.9 % Normal 11.8-14.4 [place] Comment on above: Performed By: #### C DP, CP #### [facility] [address] [place], [place] [id number] Analytic Manager: Emerson Hall MD #### LIPR #### [address] [id number] Analytic Manager: Kyle Cowan MD Hematocrit (Bld) [Volume fraction] 35.5 % Low 36.3-47.1 [place] Comment on above: Performed By: #### C DP, CP #### [address] [place] [phone] Analytic Manager: Emerson Hall MD #### LIPR #### [address] [id number] Analytic Manager: Kyle Cowan MD Hemoglobin (Bld) [Mass/Vol] 11.1 g/dL Low 11.9-15.1 [place] Comment on above: Performed By: #### C DP, CP #### [address] [place] [phone] Analytic Manager: Emerson Hall MD #### LIPR #### [address] [address] Analytic Manager: Kyle Cowan MD Immature granulocytes/100 WBC (Bld) 1 % High 0 [place] Comment on above: Performed By: #### C DP, CP #### [address] [place], [place] [id number] Analytic Manager: Emerson Hall MD #### LIPR #### [address] [address] Analytic Manager: Kyle Cowan MD Lymphocytes (Bld) [#/Vol] 2.94 10*3/uL Normal 1.10-3.70 [place] Comment on above: Performed By: #### C DP, CP #### [facility] [address] [place] [address] Dr. [address] [phone] Analytic Manager: Emerson Hall MD #### LIPR #### [address] [id number] Analytic Manager: Kyle Cowan MD Lymphocytes/100 WBC (Bld) 28 % Normal 24-43 [place] Comment on above: Performed By: #### C DP, CP #### [address] [phone] Analytic Manager: Emerson Hall MD #### LIPR #### [address] [address] Analytic Manager: Kyle Cowan MD MCH (RBC) [Entitic mass] 31.4 pg Normal 25.2-33.5 [place] Comment on above: Performed By: #### C DP, CP #### [address] [place] [phone] Analytic Manager: Emerson Hall MD #### LIPR #### [address] [address] Analytic Manager: Kyle Cowan MD MCHC (RBC) [Mass/Vol] 31.3 g/dL Normal 28.4-34.8 [facility] Comment on above: Performed By: #### C DP, CP #### [address] [place] [phone] Analytic Manager: Emerson Hall MD #### LIPR #### [address] [address] Analytic Manager: Kyle Cowan MD MCV (RBC) [Entitic vol] 100.3 fL Normal 82.6-102.9 [place] Comment on above: Performed By: #### C DP, CP #### [address] [place] [address] Analytic Manager: Emerson Hall MD #### LIPR #### [address] [address] Analytic Manager: Kyle Cowan MD Monocytes (Bld) [#/Vol] 0.90 10*3/uL Normal 0.10-1.20 [place] Comment on above: Performed By: #### C DP, CP #### [address] [place] [phone] ( Analytic Manager: Emerson Hall MD #### LIPR #### [address] [address] Analytic Manager: Kyle Cowan MD Monocytes/100 WBC (Bld) 9 % Normal 3-12 [place] Comment on above: Performed By: #### C DP, CP #### [address] [place], [place] [address]83 Analytic Manager: Emerson Hall MD #### LIPR #### [address] [address] Analytic Manager: Kyle Cowan MD Neutrophil (Seg) 57 % Normal 36-65 [facility] Comment on above: Performed By: #### C DP, CP #### [address] [place] [address] Analytic Manager: Emerson Hall MD #### LIPR #### [address] [address] Analytic Manager: Kyle Cowan MD NRBC Automated 0.0 per 100 WBC Normal 0.0 [place] Comment on above: Performed By: #### C DP, CP #### [facility] [address] [place], [place] [phone] Analytic Manager: Emerson Hall MD #### LIPR #### [address] [place], [place] [id number] Analytic Manager: Kyle Cowan MD Platelet mean volume (Bld) [Entitic vol] 9.2 fL Normal 8.1-13.5 [place] Comment on above: Performed By: #### C DP, CP #### [facility] [address] [place], [place] [phone] Analytic Manager: Emerson Hall MD #### LIPR #### [address] [phone] Analytic Manager: Kyle Cowan MD Platelets (Bld) [#/Vol] 325 10*3/uL Normal 138-453 [place] Comment on above: Performed By: #### C DP, CP #### [facility] [address] [place], [place] [id number] Analytic Manager: Emerson Hall MD #### LIPR #### [address] [address] Analytic Manager: Kyle Cowan MD RBC (Bld) [#/Vol] 3.54 10*6/uL Low 3.95-5.11 [place] Comment on above: Performed By: #### C DP, CP #### [facility] [address] [place], [place] [phone] Analytic Manager: Emerson Hall MD #### LIPR #### [address] [place] [address] Analytic Manager: Kyle Cowan MD WBC (Bld) [#/Vol] 10.4 10*3/uL Normal 3.5-11.3 [place] Comment on above: Performed By: #### C DP, CP #### [facility] [address] [place], [place] 0357483 Analytic Manager: Emerson Hall MD #### LIPR #### [facility] [address] [place], [place] [phone] Analytic Manager: Kyle Cowan MD Comp Metabolic Profon 2021 (cont.) Normal [place] Comment on above: Result Comment: Aver age GFR for 70 or more years old: 75 mL/min/1.73sq m Chronic Kidney Disease: <60 mL/min/1.73sq m Kidney failure: <15 mL/min/1.73sq m eGFR calculated using average adult body mass. Additional eGFR calculator available at: http://www.Enflick/multiple_crcl_2012.htm Performed By: #### B C #### [facility] [address] [place] [address] Dr. [place], [place] [id number] Analytic Manager: Emerson Hall MD Albumin [Mass/Vol] 3.8 g/dL Normal 3.5-5.2 [place] Comment on above: Performed By: #### B C #### [facility] [address] [place] [address] Dr. [place], [place] [id number] Analytic Manager: Emerson Hall MD Albumin/Glob Ratio 1.4 Normal 1.0-2.5 [place] Comment on above: Performed By: #### B C #### [facility] [address] [place], [place] [phone] Analytic Manager: Emreson Hall MD Alkaline Phos 69 U/L Normal 35-104 [facility] Comment on above: Performed By: #### B C #### [facility] [address] [place], [place] [phone] Analytic Manager: Emerson Hall MD ALT [Catalytic activity/Vol] 6 U/L Normal 5-33 [place] Comment on above: Performed By: #### B C #### [facility] [address] [place], [place] [phone] Analytic Manager: Emerson Hall MD Anion gap [Moles/Vol] 6 mmol/L Low 9-17 [facility] Comment on above: Performed By: #### B C #### [facility] [address] [place], [place] 3133983 Analytic Manager: Emerson Hall MD AST [Catalytic activity/Vol] 12 U/L Normal <32 [place] Comment on above: Performed By: #### B C #### [facility] [address] [place], [place] [phone] Analytic Manager: Emerson Hall MD Bilirubin [Mass/Vol] 0.27 mg/dL Low 0.3-1.2 [facility] Comment on above: Performed By: #### B C #### [facility] [address] [place], [place] 1742183 Analytic Manager: Emerson Hall MD BUN/CRE Ratio 26 High 9-20 [facility] Comment on above: Performed By: #### B C #### [facility] [address] [place], [place] 1173383 Analytic Manager: Emerson Hall MD Calcium [Mass/Vol] 9.2 mg/dL Normal 8.6-10.4 [place] Comment on above: Performed By: #### B C #### [facility] [address] [place], [place] [phone] Analytic Manager: Emerson Hall MD Chloride [Moles/Vol] 106 mmol/L Normal 98-107 [facility] Comment on above: Performed By: #### B C #### [facility] [address] [place], [place] 1443983 Analytic Manager: Emerson Hall MD CO2 [Moles/Vol] 29 mmol/L Normal 20-31 [facility] Comment on above: Performed By: #### B C #### [facility] [address] [place], [place] [phone] Analytic Manager: Emerson Hall MD Creatinine [Mass/Vol] 0.73 mg/dL Normal 0.50-0.90 [facility] Comment on above: Performed By: #### B C #### [facility] [address] [place], [place] 3151083 Analytic Manager: Emerson Hall MD GFR, Amer >60 Normal >60 [facility] Comment on above: Performed By: #### B C #### [facility] [address] [place], [place] [phone] Analytic Manager: Emerson Hall MD GFR,non Amer >60 Normal >60 [facility] Comment on above: Performed By: #### B C #### [facility] [address] [place], [place] [phone] Analytic Manager: Emerson Hall MD Glucose [Mass/Vol] 92 mg/dL Normal 70-99 [place] Comment on above: Performed By: #### B C #### [facility] [address] [place], [place] [id number] Analytic Manager: Emerson Hall MD Potassium [Moles/Vol] 5.1 mmol/L Normal 3.7-5.3 [facility] Comment on above: Performed By: #### B C #### [facility] [address] [place], [place] [id number] Analytic Manager: Emerson Hall MD Protein [Mass/Vol] 6.5 g/dL Normal 6.4-8.3 [place] Comment on above: Performed By: #### B C #### [facility] [address] [place], [place] [id number] Analytic Manager: Emerson Hall MD Sodium [Moles/Vol] 141 mmol/L Normal 135-144 [place] Comment on above: Performed By: #### B C #### [facility] [address] [place] [address] Analytic Manager: Emerson Hall MD Staging: Normal [place] Comment on above: Result Comment: Stag e 1: Some kidney damage normal GFR Stage 2: Mild kidney damage GFR 60-89 Stage 3: Moderate kidney damage GFR 30-59 Stage 4: Severe kidney damage GFR 15-29 Stage 5: Severe kidney damage GFR <15 ESRD - chronic treatment by dialysis or transplant Performed By: #### B C #### [facility] [address] [place] [address] Analytic Manager: Emerson Hall MD Urea nitrogen [Mass/Vol] 19 mg/dL Normal 8-23 [place] Comment on above: Performed By: #### B C #### [facility] [address] [place] [place] [address] Analytic Manager: Emerson Hall MD [facility] Metabolic Pane [facility] 09-23-2021 Albumin [Mass/Vol] 3.8 g/dL 3.5 - 5.2 g/dL [facility] Albumin/Globulin [Mass ratio] 1.4 {ratio} [facility] ALP (Bld) [Catalytic activity/Vol] 69 U/L 35 - 104 U/L [facility] ALT [Catalytic activity/Vol] 6 U/L 5 - 33 U/L [facility] Anion gap [Moles/Vol] 6 mmol/L Low 9 - 17 mmol/L [facility] AST [Catalytic activity/Vol] 12 U/L <32 [facility] Bilirubin [Mass/Vol] 0.27 mg/dL Low 0.3 - 1 .2 mg/dL [facility] Calcium [Mass/Vol] 9.2 mg/dL 8.6 - 10. 4 mg/dL [facility] Chloride [Moles/Vol] 106 mmol/L 98 - 10 7 mmol/L [facility] CO2 [Moles/Vol] 29 mmol/L 20 - 31 mmol/L [facility] Creatinine [Mass/Vol] 0.73 mg/dL 0.50 - 0.90 mg/dL [facility] Free PSA/Total PSA [Mass fraction] 6.5 g/dL 6.4 - 8.3 g/dL [facility] GFR >60 >60 mL/min [facility] GFR Non- >60 >60 mL/min [facility] Glucose [Mass/Vol] 92 mg/dL 70 - 99 mg/dL [facility] Interpretation and review of laboratory results Abnormal [facility] Potassium [Moles/Vol] 5.1 mmol/L 3.7 - 5.3 mmol/L [facility] Sodium [Moles/Vol] 141 mmol/L 135 - 144 mmol/L [facility] Urea nitrogen (BldV) [Mass/Vol] 19 mg/dL 8 - 23 mg/dL [facility] Urea nitrogen/Creatinine (Bld) [Mass ratio] 26 High [facility] Laboratory - Chemistry and C hemistry - challengeon 09-23-2021 GFR/1.73 sq M.predicted MDRD (S/P/Bld) [Vol rate/Area] [facility] Comment on above: Average GFR for 70 o r more years old: 75 mL/min/1.73sq m Chronic Kidney Disease: <60 mL/min/1.73sq m Kidney failure: <15 mL/min/1.73sq m eGFR calculated using average adult body mass. Additional eGFR calculator available at: http://www.[employer]/multiple_crcl_2012.htm Stage 1: Some kidney damage normal GFR Stage 2: Mild kidney damage GFR 60-89 Stage 3: Moderate kidney damage GFR 30-59 Stage 4: Severe kidney damage GFR 15-29 Stage 5: Severe kidney damage GFR <15 ESRD - chronic treatment by dialysis or transplant Lipid Panelon 09-23-2021 Cholesterol [Mass/Vol] 150 mg/dL <200 [facility] Comment on above: Cholesterol Guidelines: <200 Desirable 200-240 Borderline >240 Undesirable Cholesterol in HDL [Mass/Vol] 48 mg/dL >40 [facility] Comment on above: HDL Guidelines: <40 Undesirable 40-59 Borderline >59 Desirable Cholesterol in LDL [Mass/Vol] 83 mg/dL 0 - 130 mg/dL [facility] Comment on above: LDL Guidelines: <100 Desirable 100-129 Near to/above Desirable 130-159 Borderline >159 Undesirable Direct (measured) LDL and calculated LDL are not interchangeable tests. Cholesterol.total/Chol esterol in HDL [Mass ratio] 3.1 {ratio} <5 [facility] Triglyceride [Mass/Vol] 97 mg/dL <150 [facility] Comment on above: Triglyceride Guidelines: <150 Desirable 150-199 Borderline 200-499 High >499 Very high Based on AHA Guidelines for fasting triglyceride, January 2012. [facility] Lipid Profileon 09-23-2021 Cholesterol [Mass/Vol] 150 mg/dL Normal <200 [facility] Comment on above: Result Comment: Cholesterol Guidelines: <200 Desirable 200-240 Borderline >240 Undesirable Performed By: #### B C #### [facility] [address] [place] [address] [place] [address] Analytic Manager: Emerson Hall MD Cholesterol in HDL [Mass/Vol] 48 mg/dL Normal >40 [place] Comment on above: Result Comment: HDL Guidelines: <40 Undesirable 40-59 Borderline >59 Desirable Performed By: #### B C #### [facility] [address] [place] [address] Analytic Manager: Emerson Hall MD Cholesterol in LDL [Mass/Vol] 83 mg/dL Normal 0-130 [place] Comment on above: Result Comment: LDL Guidelines: <100 Desirable 100-129 Near to/above Desirable 130-159 Borderline >159 Undesirable Direct (measured) LDL and calculated LDL are not interchangeable tests. Performed By: #### B C #### [facility] [address] [place] [address] Analytic Manager: Emerson Hall MD Cholesterol.total/Chol esterol in HDL [Mass ratio] 3.1 {ratio} Normal <5 [place] Comment on above: Performed By: #### B C #### [facility] [address] [place] [address] [place] [address] Analytic Manager: Emerson Hall MD Triglyceride [Mass/Vol] 97 mg/dL Normal <150 [place] Comment on above: Result Comment: Triglyceride Guidelines: <150 Desirable 150-199 Borderline 200-499 High >499 Very high Based on AHA Guidelines for fasting triglyceride, January 2012. Performed By: #### B C #### [address] [place] [address] Analytic Manager: Emerson Hall MD Lipid Profileon 04-29-2021 Cholesterol [Mass/Vol] 162 mg/dL Normal <200 [facility] Comment on above: Result Comment: Cholesterol Guidelines: <200 Desirable 200-240 Borderline >240 Undesirable Performed By: #### C DP, CP #### [facility] [address] [place] [address] [place] [address] Analytic Manager: Emerson Hall MD #### LIPR #### [address] [place], [place] [id number] Analytic Manager: Kyle Cowan MD Cholesterol in HDL [Mass/Vol] 58 mg/dL Normal >40 [place] Comment on above: Result Comment: HDL Guidelines: <40 Undesirable 40-59 Borderline >59 Desirable Performed By: #### C DP, CP #### [facility] [address] [place] [address] [place] [address] Analytic Manager: Emerson Hall MD #### LIPR #### [address] [place], [place] [id number] Analytic Manager: Kyle Cowan MD Cholesterol in LDL [Mass/Vol] 86 mg/dL Normal 0-130 [place] Comment on above: Result Comment: LDL Guidelines: <100 Desirable 100-129 Near to/above Desirable 130-159 Borderline >159 Undesirable Direct (measured) LDL and calculated LDL are not interchangeable tests. Performed By: #### C DP, CP #### [facility] [address] [place], [place] [id number] Analytic Manager: Emerson Hall MD #### LIPR #### [address] [id number] Analytic Manager: Kyle Cowan MD Cholesterol.total/Chol esterol in HDL [Mass ratio] 2.8 {ratio} Normal <5 [place] Comment on above: Performed By: #### C DP, CP #### [facility] [address] [place] [id number] Analytic Manager: Emerson Hall MD #### LIPR #### [address] [address] Analytic Manager: Kyle Cowan MD Triglyceride [Mass/Vol] 88 mg/dL Normal <150 [place] Comment on above: Result Comment: Triglyceride Guidelines: <150 Desirable 150-199 Borderline 200-499 High >499 Very high Based on AHA Guidelines for fasting triglyceride, January 2012. Performed By: #### C KOLBY, CP #### [facility] [address] [place] [id number] Analytic Manager: Emerson Hall MD #### LIPR #### [address] [address] Analytic Manager: Kyle Cowan MD CBC with Diffon 04-28-2021 Abs. Basophil 0.06 k/uL Normal 0.00-0.20 [facility] Comment on above: Performed By: #### C KOLBY, CP #### [facility] [address] [place] [place] [address] Analytic Manager: Emerson Hall MD #### LIPR #### [address] [address] [place], [place] [id number] Analytic Manager: Kyle Cowan MD Abs.Imm.Granulocyte <0.03 Normal 0.00-0.30 [place] Comment on above: Performed By: #### C DP, CP #### [facility] [address] [place], [place] [id number] Analytic Manager: Emerson Hall MD #### LIPR #### [address] [phone] Analytic Manager: Kyle Cowan MD Abs.Neutrophil (Seg) 5.78 k/uL Normal 1.50-8.10 [facility] Comment on above: Performed By: #### C DP, CP #### [facility] [address] [place] [address] [place], [place] [id number] Analytic Manager: Emerson Hall MD #### LIPR #### [address] [id number] Analytic Manager: Kyle Cowan MD Basophils/100 WBC (Bld) 1 % Normal 0-2 [place] Comment on above: Performed By: #### C DP, CP #### [address] [place], [place] 050[address]83 Analytic Manager: Emerson Hall MD #### LIPR #### [address] [address] Analytic Manager: Kyle Cowan MD Eosinophils (Bld) [#/Vol] 0.19 10*3/uL Normal 0.00-0.44 [place] Comment on above: Performed By: #### C DP, CP #### [facility] [address] [place] [address] [place], [place] 8754183 Analytic Manager: Emerson Hall MD #### LIPR #### [address] [address] Analytic Manager: Kyle Cowan MD Eosinophils/100 WBC (Bld) 2 % Normal 1-4 [place] Comment on above: Performed By: #### C DP, CP #### [address] [place], [place] 0708583 Analytic Manager: Emerson Hall MD #### LIPR #### [address] [id number] Analytic Manager: Kyle Cowan MD Erythrocyte distribution width (RBC) [Ratio] 12.3 % Normal 11.8-14.4 [place] Comment on above: Performed By: #### C DP, CP #### [address] [place], [place] [id number] Analytic Manager: Emerson Hall MD #### LIPR #### [address] [id number] Analytic Manager: Kyle Cowan MD Hematocrit (Bld) [Volume fraction] 37.6 % Normal 36.3-47.1 [place] Comment on above: Performed By: #### C DP, CP #### [address] [place], [place] 6721483 Analytic Manager: Emerson aHll MD #### LIPR #### [address] [id number] Analytic Manager: Kyle Cowan MD Hemoglobin (Bld) [Mass/Vol] 12.1 g/dL Normal 11.9-15.1 [place] Comment on above: Performed By: #### C DP, CP #### [address] [place], [place] [id number] Analytic Manager: Emerson Hall MD #### LIPR #### [address] [address] Analytic Manager: Kyle Cowan MD Immature granulocytes/100 WBC (Bld) 0 % Normal 0 [place] Comment on above: Performed By: #### C DP, CP #### [address] [place], [place] [phone] Analytic Manager: Emerson Hall MD #### LIPR #### [address] [id number] Analytic Manager: Kyle Cowan MD Lymphocytes (Bld) [#/Vol] 3.12 10*3/uL Normal 1.10-3.70 [place] Comment on above: Performed By: #### C DP, CP #### [facility] [address] [place] [address] [place] [address] Analytic Manager: Emerson Hall MD #### LIPR #### [place] [address] Analytic Manager: Kyle Cowan MD Lymphocytes/100 WBC (Bld) 32 % Normal 24-43 [place] Comment on above: Performed By: #### C DP, CP #### [address] [place] [address] Analytic Manager: Emerson Hall MD #### LIPR #### [place] [address] Analytic Manager: Kyle Cowan MD MCH (RBC) [Entitic mass] 31.6 pg Normal 25.2-33.5 [place] Comment on above: Performed By: #### C DP, CP #### [address] [place] [address] Analytic Manager: Emerson Hall MD #### LIPR #### [place] [address] Analytic Manager: Kyle Cowan MD MCHC (RBC) [Mass/Vol] 32.2 g/dL Normal 28.4-34.8 [facility] Comment on above: Performed By: #### C DP, CP #### [address] [place] [address] Analytic Manager: Emerson Hall MD #### LIPR #### [address] [address] Analytic Manager: Kyle Cowan MD MCV (RBC) [Entitic vol] 98.2 fL Normal 82.6-102.9 [place] Comment on above: Performed By: #### C DP, CP #### [facility] [address] [place] [address] Analytic Manager: Emerson Hall MD #### LIPR #### [address] [address] Analytic Manager: Kyle Cowan MD Monocytes (Bld) [#/Vol] 0.69 10*3/uL Normal 0.10-1.20 [place] Comment on above: Performed By: #### C DP, CP #### [address] [place] [address] Analytic Manager: Emerson Hall MD #### LIPR #### [address] [address] Analytic Manager: Kyle Cowan MD Monocytes/100 WBC (Bld) 7 % Normal 3-12 [place] Comment on above: Performed By: #### C DP, CP #### [address] [place] [id number] Analytic Manager: Emerson Hall MD #### LIPR #### [address] [address] Analytic Manager: Kyle Cowan MD Neutrophil (Seg) 58 % Normal 36-65 [facility] Comment on above: Performed By: #### C DP, CP #### [address] [place] [address] Analytic Manager: Emerson Hall MD #### LIPR #### [address] [address] Analytic Manager: Kyle Cowan MD NRBC Automated 0.0 per 100 WBC Normal 0.0 [place] Comment on above: Performed By: #### C DP, CP #### [facility] [address] [place], [place] 520[address]83 Analytic Manager: Emerson Hall MD #### LIPR #### [address] [address] Analytic Manager: Kyle Cowan MD Platelet mean volume (Bld) [Entitic vol] 9.8 fL Normal 8.1-13.5 [place] Comment on above: Performed By: #### C DP, CP #### [address] [place] [id number] Analytic Manager: Emerson Hall MD #### LIPR #### [address] [address] Analytic Manager: Kyle Cowan MD Platelets (Bld) [#/Vol] 299 10*3/uL Normal 138-453 [place] Comment on above: Performed By: #### C DP, CP #### [address] [place], [place] 2432583 Analytic Manager: Emerson Hall MD #### LIPR #### [address] [address] Analytic Manager: Kyle Cowan MD RBC (Bld) [#/Vol] 3.83 10*6/uL Low 3.95-5.11 [place] Comment on above: Performed By: #### C DP, CP #### [facility] [address] [place] [address] [place], [place] [phone] Analytic Manager: Emerson Hall MD #### LIPR #### [address] [address] Analytic Manager: Kyle Cowan MD WBC (Bld) [#/Vol] 9.9 10*3/uL Normal 3.5-11.3 [place] Comment on above: Performed By: #### C DP, CP #### [facility] [address] [place] [address] [place] [address] Analytic Manager: Emerson Hall MD #### LIPR #### [address] [address] Analytic Manager: Kyle Cowan MD Auto Diff Performed NOT REPORTED Normal [facility] Comment on above: Performed By: #### C DP, CP #### [address] [place] [address] Analytic Manager: Emerson Hall MD #### LIPR #### [address] [address] Analytic Manager: Kyle Cowan MD Platelet Comment NOT REPORTED Normal [place] Comment on above: Performed By: #### C DP, CP #### [address] [place] [address] Analytic Manager: Emerson Hall MD #### LIPR #### [address] [address] Analytic Manager: Kyle Cowan MD RBC morphology finding Nom (Bld) NOT REPORTED Normal [place] Comment on above: Performed By: #### C DP, CP #### [address] [place] [address] Analytic Manager: Emerson Hall MD #### LIPR #### [address] [address] Analytic Manager: Kyle Cowan MD WBC Morphology NOT REPORTED Normal [facility] Comment on above: Performed By: #### C DP, CP #### [facility] [address] [place] [address] [place]. [place], [place] 9553183 Analytic Manager: Emerson Hall MD #### LIPR #### [address] [place] [address] Analytic Manager: Kyle Cowan MD Comp Metabolic Profon 2021 (cont.) Normal [place] Comment on above: Result Comment: [place]ver age GFR for 70 or more years old: 75 mL/min/1.73sq m Chronic Kidney Disease: <60 mL/min/1.73sq m Kidney failure: <15 mL/min/1.73sq m eGFR calculated using average adult body mass. Additional eGFR calculator available at: http://www.[employer]/multiple_crcl_2011.htm Performed By: #### C DP, CP #### [address] [place], [place] [id number] Analytic Manager: Emerson Hall MD #### LIPR #### [address] [address] Analytic Manager: Kyle Cowan MD Albumin [Mass/Vol] 4.0 g/dL Normal 3.5-5.2 [place] Comment on above: Performed By: #### C DP, CP #### [address] [place], [place] 748[address]3 Analytic Manager: Emerson Hall MD #### LIPR #### [address] [address] Analytic Manager: Kyle Cowan MD Albumin/Glob Ratio 1.5 Normal 1.0-2.5 [place] Comment on above: Performed By: #### C DP, CP #### [address] [place], [place] 9350783 Analytic Manager: Emerson Hall MD #### LIPR #### [address] [address] Analytic Manager: Kyle Cowan MD Alkaline Phos 72 U/L Normal 35-104 [facility] Comment on above: Performed By: #### C DP, CP #### [facility] [address] [place] [address] Analytic Manager: Emerson Hall MD #### LIPR #### [address] [address] Analytic Manager: Kyle Cowan MD ALT [Catalytic activity/Vol] 10 U/L Normal 5-33 [place] Comment on above: Performed By: #### C DP, CP #### [facility] [address] [place] [address] Analytic Manager: Emerson Hall MD #### LIPR #### [address] [address] Analytic Manager: Kyle Cowan MD Anion gap [Moles/Vol] 11 mmol/L Normal 9-17 [facility] Comment on above: Performed By: #### C DP, CP #### [facility] [address] [place] [address] [place] [address] Analytic Manager: Emerson Hall MD #### LIPR #### [address] [address] Analytic Manager: Kyle Cowan MD AST [Catalytic activity/Vol] 17 U/L Normal <32 [place] Comment on above: Performed By: #### C DP, CP #### [facility] [address] [place], [place] 8731883 Analytic Manager: Emerson Hall MD #### LIPR #### [address] [address] Analytic Manager: Kyle Cowan MD Bilirubin [Mass/Vol] 0.25 mg/dL Low 0.3-1.2 [facility] Comment on above: Performed By: #### C DP, CP #### [facility] [address] [place], [place] 54[address]83 Analytic Manager: Emerson Hall MD #### LIPR #### [facility] [address] [place] [address] Analytic Manager: Kyle Cowan MD BUN/CRE Ratio 37 High 9-20 [facility] Comment on above: Performed By: #### C DP, CP #### [facility] [address] [place], [place] 0723383 Analytic Manager: Emerson Hall MD #### LIPR #### [address] [address] Analytic Manager: Kyle Cowan MD Calcium [Mass/Vol] 9.4 mg/dL Normal 8.6-10.4 [place] Comment on above: Performed By: #### C DP, CP #### [facility] [address] [place] [address] Analytic Manager: Emerson Hall MD #### LIPR #### [address] [address] Analytic Manager: Kyle Cowan MD Chloride [Moles/Vol] 105 mmol/L Normal 98-107 [facility] Comment on above: Performed By: #### C DP, CP #### [facility] [address] [place] [address] Analytic Manager: Emerson Hall MD #### LIPR #### [address] [address] Analytic Manager: Kyle Cowan MD CO2 [Moles/Vol] 23 mmol/L Normal 20-31 [facility] Comment on above: Performed By: #### C DP, CP #### [facility] [address] [place] [place] [address] Analytic Manager: Emerson Hall MD #### LIPR #### [address] [address] Analytic Manager: Kyle Cowan MD Creatinine [Mass/Vol] 0.51 mg/dL Normal 0.50-0.90 [facility] Comment on above: Performed By: #### C DP, CP #### [facility] [address] [place], [place] 4433983 Analytic Manager: Emerson Hall MD #### LIPR #### [address] [address] Analytic Manager: Kyle Cowan MD GFR, Amer >60 Normal >60 [facility] Comment on above: Performed By: #### C DP, CP #### [address] [place] [address] Analytic Manager: Emerson Hall MD #### LIPR #### [address] [address] Analytic Manager: Kyle Cowan MD GFR,non Amer >60 Normal >60 [facility] Comment on above: Performed By: #### C DP, CP #### [address] [place], [place] 4248083 Analytic Manager: Emerson Hall MD #### LIPR #### [address] [address] Analytic Manager: Kyle Cowan MD Glucose [Mass/Vol] 97 mg/dL Normal 70-99 [place] Comment on above: Performed By: #### C DP, CP #### [address] [place] [address] Analytic Manager: Emerson Hall MD #### LIPR #### [address] [id number] Analytic Manager: Kyle Cowan MD Potassium [Moles/Vol] 4.7 mmol/L Normal 3.7-5.3 [facility] Comment on above: Performed By: #### C DP, CP #### [facility] [address] [place] [address] [place], [place] 8054983 Analytic Manager: Emerson Hall MD #### LIPR #### [address] [id number] Analytic Manager: Kyle Cowan MD Protein [Mass/Vol] 6.6 g/dL Normal 6.4-8.3 [place] Comment on above: Performed By: #### C DP, CP #### [address] [place], [place] 4612683 Analytic Manager: Emerson Hall MD #### LIPR #### [address] [address] Analytic Manager: Kyle Cowan MD Sodium [Moles/Vol] 139 mmol/L Normal 135-144 [place] Comment on above: Performed By: #### C KOLBY, CP #### [address] [place], [place] 8429383 Analytic Manager: Emerson Hall MD #### LIPR #### [address] [address] Analytic Manager: Kyle Cowan MD Staging: Normal [place] Comment on above: Result Comment: Stag e 1: Some kidney damage normal GFR Stage 2: Mild kidney damage GFR 60-89 Stage 3: Moderate kidney damage GFR 30-59 Stage 4: Severe kidney damage GFR 15-29 Stage 5: Severe kidney damage GFR <15 ESRD - chronic treatment by dialysis or transplant Performed By: #### C DP, CP #### [address] [place], [place] 7450083 Analytic Manager: Emerson Hall MD #### LIPR #### [facility] [address] [place], [place] 6847708 Analytic Manager: Kyle Cowan MD Urea nitrogen [Mass/Vol] 19 mg/dL Normal 8-23 [place] Comment on above: Performed By: #### C DP, CP #### [facility] [address] [place] [address] Analytic Manager: Emerson Hall MD #### LIPR #### [address] [place] [address] Analytic Manager: Kyel Cowan MD Lipid Profileon 04-28-2021 Cholesterol,VLDL NOT REPORTED Normal 05-09 [place] Comment on above: Performed By: #### C DP, CP #### [address] [place] [address] Analytic Manager: Emerson Hall MD #### LIPR #### [address] [place], [place] [phone] Analytic Manager: Kyle Cowan MD Cult,Bloodon 10-25-2020 Cult,Blood Specimen Description .BLOOD Special Requests R AC 14ML Culture NO GROWTH 6 DAYS Report Status FINAL 10/25/2020 Normal [place] Comment on above: Performed By: #### B C #### [address] [place] [address] Analytic Manager: Emerson Hall MD Cult,Blood Specimen Description .BLOOD Special Requests L HAND 2ML Culture NO GROWTH 6 DAYS Report Status FINAL 10/25/2020 Normal [place] Comment on above: Performed By: #### B C #### [facility] [address] [place] [address] Analytic Manager: Emerson Hall MD CBCon 10-20-2020 Erythrocyte distribution width (RBC) [Ratio] 12.3 % Normal 11.8-14.4 [place] Comment on above: Performed By: #### B C #### [address] [place] [address] Analytic Manager: Emerson Hall MD Hematocrit (Bld) [Volume fraction] 34.0 % Low 36.3-47.1 [place] Comment on above: Performed By: #### B C #### [address] [place], [facility] Analytic Manager: Emerson Hall MD Hemoglobin (Bld) [Mass/Vol] 11.3 g/dL Low 11.9-15.1 [place] Comment on above: Performed By: #### B C #### [address] [place] [address] Analytic Manager: Emerson Hall MD MCH (RBC) [Entitic mass] 31.5 pg Normal 25.2-33.5 [place] Comment on above: Performed By: #### B C #### [address] [place], [facility] Analytic Manager: Emerson Hall MD MCHC (RBC) [Mass/Vol] 33.2 g/dL Normal 28.4-34.8 [facility] Comment on above: Performed By: #### B C #### [address] [place], [facility] Analytic Manager: Emerson Hall MD MCV (RBC) [Entitic vol] 94.7 fL Normal 82.6-102.9 [place] Comment on above: Performed By: #### B C #### [address] [place] [address] Analytic Manager: Emerson Hall MD NRBC Automated 0.0 per 100 WBC Normal 0.0 [place] Comment on above: Performed By: #### B C #### [address] [place], [facility] Analytic Manager: Emerson Hall MD Platelet mean volume (Bld) [Entitic vol] 8.9 fL Normal 8.1-13.5 [place] Comment on above: Performed By: #### B C #### [facility] [address] [place] [address] Analytic Manager: Emerson Hall MD Platelets (Bld) [#/Vol] 191 10*3/uL Normal 138-453 [place] Comment on above: Performed By: #### B C #### [facility] [address] [place] [address] Analytic Manager: Emerson Hall MD RBC (Bld) [#/Vol] 3.59 10*6/uL Low 3.95-5.11 [place] Comment on above: Performed By: #### B C #### [facility] [address] [place], [place] [id number] Analytic Manager: Emerson Hall MD WBC (Bld) [#/Vol] 8.5 10*3/uL Normal 3.5-11.3 [place] Comment on above: Performed By: #### B C #### [facility] [address] [place] [address] Analytic Manager: Emerson Hall MD CBCOrdered By: Casandra Cerda on 10-20-2020 Hematocrit (Bld) [Volume fraction] 34.0 % Low 36.3 - 47.1 % [facility] [employer] Phone: Hemoglobin.gastrointes tinal spec 1 Ql (Stl) 11.3 g/dL Low 11.9 - 15.1 g/dL [employer] Phone: Interpretation and review of laboratory results Abnormal [employer] Phone: MCH (RBC) [Entitic mass] 31.5 pg 25.2 - 33.5 pg [employer] Phone: MCHC (RBC) [Mass/Vol] 33.2 g/dL 28.4 - 34.8 g/dL [employer] Phone: MCV (RBC) [Entitic vol] 94.7 fL 82.6 - 102.9 fL [employer] Phone: NRBC Automated 0.0 0.0 per 100 WBC [employer] Phone: Platelet distribution width (Bld) [Ratio] 12.3 % 11.8 - 14.4 % [employer] Phone: Platelet mean volume (Bld) [Entitic vol] 8.9 fL 8.1 - 13.5 fL [employer] Phone: Platelets (Bld) [#/Vol] 191 10*3/uL [employer] Phone: RBC (Bld) [#/Vol] 3.59 10*6/uL Low 3.95 - 5.1 1 m/uL [employer] Work Phone: WBC (Bld) [#/Vol] 8.5 10*3/uL [employer] Phone: [employer] Phone: CBC Auto DifferentialOrdered By: Radu Worrell on 10-20-2020 Absolute Eos # 0.27 [employer] [facility] Work Phone: Comment on above: CORRECTED ON 10/20 A T 0933: PREVIOUSLY REPORTED 0.54 Absolute Immature Granulocyte 0.00 [employer] Work Phone: Absolute Lymph # 4.86 High [employer] [facility] Work Phone: Comment on above: CORRECTED ON 10/20 A T 0933: PREVIOUSLY REPORTED 3.11 Absolute [place] # 1.08 High [facility] [facility] Work Phone: Comment on above: CORRECTED ON 10/20 A T 0933: PREVIOUSLY REPORTED 0.54 Basophils (Bld) [#/Vol] 0.14 10*3/uL [employer] Phone: Comment on above: CORRECTED ON 10/20 A T 0933: PREVIOUSLY REPORTED 0.00 Basophils/100 WBC (Bld) 1 % 0 - 2 % [employer] Phone: Comment on above: CORRECTED ON 10/20 A T 0933: PREVIOUSLY REPORTED 0 Differential Type NOT REPORTED [employer] Phone: Eosinophils/100 WBC (Bld) 2 % 1 - 4 % [employer] Phone: Comment on above: CORRECTED ON 10/20 A T 0933: PREVIOUSLY REPORTED 4 Hematocrit (Bld) [Volume fraction] 36.4 % 36.3 - 47.1 % [employer] Phone: Hemoglobin.gastrointes tinal spec 1 Ql (Stl) 12.1 g/dL 11.9 - 15.1 g/dL [employer] Phone: Immature granulocytes/100 WBC (Bld) 0 % 0 [employer] Phone: Interpretation and review of laboratory results Abnormal [employer] Phone: Lymphocytes/100 WBC (Bld) 36 % 24 - 44 % [employer] Phone: Comment on above: CORRECTED ON 10/20 A T 0933: PREVIOUSLY REPORTED 23 MCH (RBC) [Entitic mass] 31.0 pg 25.2 - 33.5 pg [employer] Phone: MCHC (RBC) [Mass/Vol] 33.2 g/dL 28.4 - 34.8 g/dL [employer] Phone: MCV (RBC) [Entitic vol] 93.3 fL 82.6 - 102.9 fL [employer] Phone: Monocytes/100 WBC (Bld) 8 % High 1 - 7 % [employer] Phone: Comment on above: CORRECTED ON 10/20 A T 0933: PREVIOUSLY REPORTED 4 Morphology Elliott (Bld) [Interp] Normal [employer] Work Phone: nRBC 0 0 per 100 WBC [employer] Work Phone: Comment on above: CORRECTED ON 10/20 A T 0933: PREVIOUSLY REPORTED 9 NRBC Automated 0.0 0.0 per 100 WBC [employer] Phone: Platelet distribution width (Bld) [Ratio] 12.3 % 11.8 - 14.4 % [employer] Work Phone: Platelet Estimate NOT REPORTED [employer] Work Phone: Platelet mean volume (Bld) [Entitic vol] 9.3 fL 8.1 - 13.5 fL [employer] Phone: Platelets (Bld) [#/Vol] 281 10*3/uL [employer] Phone: RBC (Bld) [#/Vol] 3.90 10*6/uL Low 3.95 - 5.1 1 m/uL [employer] Work Phone: RBC (Bld) [#/Vol] NOT REPORTED [employer] Phone: Seg Neutrophils 53 % 36 - 66 % [employer] [facility] Work Phone: Comment on above: CORRECTED ON 10/20 A T 0933: PREVIOUSLY REPORTED 69 Segs Absolute 7.15 [facility] Work Phone: Comment on above: CORRECTED ON 10/20 A T 0933: PREVIOUSLY REPORTED 9.31 WBC (Bld) [#/Vol] 13.5 10*3/uL High [employer] Work Phone: WBC (Bld) [#/Vol] NOT REPORTED [employer] Work Phone: [employer] Work Phone: CBC with Diffon 10-20-2020 Abs. Basophil 0.14 k/uL Normal 0.0-0.2 [facility] Comment on above: Result Comment: GIOVANA ECTED ON 10/20 AT 0933: PREVIOUSLY REPORTED 0.00 Performed By: #### B C #### [facility] [address] [place] [address] [place] [address] Analytic Manager: Emerson Hall MD Abs.Neutrophil (Seg) 7.15 k/uL Normal 1.8-7.7 [facility] Comment on above: Result Comment: GIOVANA ECTED ON 10/20 AT 0933: PREVIOUSLY REPORTED 9.31 Performed By: #### B C #### [address] [place], [place] [id number] Analytic Manager: Emerson Hall MD Basophils/100 WBC (Bld) 1 % Normal 0-2 [place] Comment on above: Result Comment: GIOVANA ECTED ON 10/20 AT 0933: PREVIOUSLY REPORTED 0 Performed By: #### B C #### [address] [place] [address] Analytic Manager: Emerson Hall MD Eosinophils (Bld) [#/Vol] 0.27 10*3/uL Normal 0.0-0.4 [place] Comment on above: Result Comment: GIOVANA ECTED ON 10/20 AT 0933: PREVIOUSLY REPORTED 0.54 Performed By: #### B C #### [address] [place] [address] Analytic Manager: Emerson Hall MD Eosinophils/100 WBC (Bld) 2 % Normal 1-4 [place] Comment on above: Result Comment: GIOVANA ECTED ON 10/20 AT 0933: PREVIOUSLY REPORTED 4 Performed By: #### B C #### [address] [place] [address] Analytic Manager: Emerson Hall MD Lymphocytes (Bld) [#/Vol] 4.86 10*3/uL High 1.0-4.8 [place] Comment on above: Result Comment: GIOVANA ECTED ON 10/20 AT 0933: PREVIOUSLY REPORTED 3.11 Performed By: #### B C #### [facility] [address] [place], [place] [id number] Analytic Manager: Emerson Hall MD Lymphocytes/100 WBC (Bld) 36 % Normal 24-44 [place] Comment on above: Result Comment: GIOVANA ECTED ON 10/20 AT 0933: PREVIOUSLY REPORTED 23 Performed By: #### B C #### [facility] [address] [place], [place] [id number] Analytic Manager: Emerson Hall MD Monocytes (Bld) [#/Vol] 1.08 10*3/uL High 0.1-0.8 [place] Comment on above: Result Comment: GIOVANA ECTED ON 10/20 AT 09: PREVIOUSLY REPORTED 0.54 Performed By: #### B C #### [facility] [address] [place], [place] [id number] Analytic Manager: Emerson Hall MD Monocytes/100 WBC (Bld) 8 % High 1-7 [place] Comment on above: Result Comment: GIOVANA ECTED ON 10/20 AT 09: PREVIOUSLY REPORTED 4 Performed By: #### B C #### [address] [place] [address] Analytic Manager: Emerson Hall MD Neutrophil (Seg) 53 % Normal 36-66 [facility] Comment on above: Result Comment: GIOVANA ECTED ON 10/20 AT 09: PREVIOUSLY REPORTED 69 Performed By: #### B C #### [facility] [address] [place] [address] Analytic Manager: Emerson Hall MD Nucleated RBC'S 0 per 100 WBC Normal 0 [place] Comment on above: Result Comment: GIOVANA ECTED ON 10/20 AT 0933: PREVIOUSLY REPORTED 9 Performed By: #### B C #### [facility] [address] [place] [address] Analytic Manager: Emerson Hall MD Comp Metabolic Pr/rfx MGon 0 10-20-2020 (cont.) Normal [place] Comment on above: Result Comment: Aver age GFR for 70 or more years old: 75 mL/min/1.73sq m Chronic Kidney Disease: <60 mL/min/1.73sq m Kidney failure: <15 mL/min/1.73sq m eGFR calculated using average adult body mass. Additional eGFR calculator available at: http://www.Enflick/multiple_crcl_2012.htm Performed By: #### B C #### [facility] [address] [place] [address] [place] [address] Analytic Manager: Emerson Hall MD Albumin [Mass/Vol] 3.1 g/dL Low 3.5-5.2 [place] Comment on above: Performed By: #### B C #### [facility] [address] [place] [address] Analytic Manager: Emerson Hall MD Albumin/Glob Ratio 1.2 Normal 1.0-2.5 [place] Comment on above: Performed By: #### B C #### [facility] [address] [place], [place] [id number] Analytic Manager: Emerson Hall MD Alkaline Phos 64 U/L Normal 35-104 [facility] Comment on above: Performed By: #### B C #### [facility] [address] [place], [place] [id number] Analytic Manager: Emerson Hall MD ALT [Catalytic activity/Vol] 7 U/L Normal 5-33 [place] Comment on above: Performed By: #### B C #### [facility] [address] [place] [address] Analytic Manager: Emerson Hall MD Anion gap [Moles/Vol] 10 mmol/L Normal 9-17 [facility] Comment on above: Performed By: #### B C #### [facility] [address] [place], [place] [address] Analytic Manager: Emerson Hall MD AST [Catalytic activity/Vol] 13 U/L Normal <32 [place] Comment on above: Performed By: #### B C #### [facility] [address] [place], [place] [address]483 Analytic Manager: Emerson Hall MD Bilirubin [Mass/Vol] 0.17 mg/dL Low 0.3-1.2 [facility] Comment on above: Performed By: #### B C #### [facility] [address] [place], [place] [id number] Analytic Manager: Emerson Hall MD BUN/CRE Ratio 20 Normal 9-20 [facility] Comment on above: Performed By: #### B C #### [facility] [address] [place], [place] [id number] Analytic Manager: Emerson Hall MD Calcium [Mass/Vol] 8.6 mg/dL Normal 8.6-10.4 [place] Comment on above: Performed By: #### B C #### [facility] [address] [place], [place] [address]283 Analytic Manager: Emerson Hall MD Chloride [Moles/Vol] 103 mmol/L Normal 98-107 [facility] Comment on above: Performed By: #### B C #### [facility] [address] [place], [place] [id number] Analytic Manager: Emerson Hall MD CO2 [Moles/Vol] 22 mmol/L Normal 20-31 [facility] Comment on above: Performed By: #### B C #### [facility] [address] [place], [place] [address]483 Analytic Manager: Emerson Hall MD Creatinine [Mass/Vol] 0.61 mg/dL Normal 0.50-0.90 [facility] Comment on above: Performed By: #### B C #### [facility] [address] [place], [place] [address]183 Analytic Manager: Emerson Hall MD GFR, Amer >60 Normal >60 [facility] Comment on above: Performed By: #### B C #### [facility] [address] [place], [place] [address]83 Analytic Manager: Emerson Hall MD GFR,non Amer >60 Normal >60 [facility] Comment on above: Performed By: #### B C #### [facility] [address] [place], [place] [id number] Analytic Manager: Emerson Hall MD Glucose [Mass/Vol] 91 mg/dL Normal 70-99 [place] Comment on above: Performed By: #### B C #### [facility] [address] [place], [place] [address] Analytic Manager: Emerson Hall MD Potassium [Moles/Vol] 4.5 mmol/L Normal 3.7-5.3 [facility] Comment on above: Performed By: #### B C #### [facility] [address] [place], [place] [id number] Analytic Manager: Emerson Hall MD Protein [Mass/Vol] 5.6 g/dL Low 6.4-8.3 [place] Comment on above: Performed By: #### B C #### [facility] [address] [place] [address] Analytic Manager: Emerson Hall MD Sodium [Moles/Vol] 135 mmol/L Normal 135-144 [place] Comment on above: Performed By: #### B C #### [facility] [address] [place], [place] [address]184383 Analytic Manager: Emerson Hall MD Staging: Normal [place] Comment on above: Result Comment: Stag e 1: Some kidney damage normal GFR Stage 2: Mild kidney damage GFR 60-89 Stage 3: Moderate kidney damage GFR 30-59 Stage 4: Severe kidney damage GFR 15-29 Stage 5: Severe kidney damage GFR <15 ESRD - chronic treatment by dialysis or transplant Performed By: #### B C #### [facility] [address] [place] [address] Analytic Manager: Emerson Hall MD Urea nitrogen [Mass/Vol] 12 mg/dL Normal 8- [place] Comment on above: Performed By: #### B C #### [facility] [address] [place] [address] Analytic Manager: Emerson Hall MD Comprehensive Metabolic Pane l w/ Reflex to MGOrdered By: Casandra Cerda on 10-20-2020 Albumin [Mass/Vol] 3.1 g/dL Low 3.5 - 5.2 g/dL [employer] Phone: Albumin/Globulin [Mass ratio] 1.2 {ratio} [employer] Phone: ALP (Bld) [Catalytic activity/Vol] 64 U/L 35 - 104 U/L [employer] Phone: ALT [Catalytic activity/Vol] 7 U/L 5 - 33 U/L [facility] Phone: Anion gap [Moles/Vol] 10 mmol/L 9 - 17 mmol/L [facility] Phone: AST [Catalytic activity/Vol] 13 U/L <32 [employer] Phone: Bilirubin [Mass/Vol] 0.17 mg/dL Low 0.3 - 1 .2 mg/dL [employer] Phone: Calcium [Mass/Vol] 8.6 mg/dL 8.6 - 10. 4 mg/dL [employer] Phone: Chloride [Moles/Vol] 103 mmol/L 98 - 10 7 mmol/L [employer] Phone: CO2 [Moles/Vol] 22 mmol/L 20 - 31 mmol/L [facility] Phone: Creatinine [Mass/Vol] 0.61 mg/dL 0.50 - 0.90 mg/dL [employer] Phone: Free PSA/Total PSA [Mass fraction] 5.6 g/dL Low 6.4 - 8.3 g/dL [facility] Phone: GFR >60 >60 mL/min [employer] Phone: GFR Non- >60 >60 mL/min [employer] Phone: Glucose [Mass/Vol] 91 mg/dL 70 - 99 mg/dL [employer] Phone: Interpretation and review of laboratory results Abnormal [employer] Phone: Potassium [Moles/Vol] 4.5 mmol/L 3.7 - 5.3 mmol/L [facility] Phone: Sodium [Moles/Vol] 135 mmol/L 135 - 144 mmol/L [facility] Phone: Urea nitrogen (BldV) [Mass/Vol] 12 mg/dL 8 - 23 mg/dL [facility] Phone: Urea nitrogen/Creatinine (Bld) [Mass ratio] 20 [facility] Phone: [facility] Phone: Keppraon 10-20-2020 KEPP 19 ug/mL Normal [place] Comment on above: Result Comment: A reference [...] known. Performed By: #### K EPPRA #### [employer] [address] [place] [address] Analytic Manager: Kyle Cowan MD Laboratory - Chemistry and C hemistry - challengeOrdered By: Casandra Cerda on 10-20-2020 GFR/1.73 sq M.predicted MDRD (S/P/Bld) [Vol rate/Area] [employer] Phone: Comment on above: Average GFR for 70 o r more years old: 75 mL/min/1.73sq m Chronic Kidney Disease: <60 mL/min/1.73sq m Kidney failure: <15 mL/min/1.73sq m eGFR calculated using average adult body mass. Additional eGFR calculator available at: http://www.Enflick/multiple_crcl_2012.htm Stage 1: Some kidney damage normal GFR Stage 2: Mild kidney damage GFR 60-89 Stage 3: Moderate kidney damage GFR 30-59 Stage 4: Severe kidney damage GFR 15-29 Stage 5: Severe kidney damage GFR <15 ESRD - chronic treatment by dialysis or transplant Levetiracetam LevelOrdered B y: Casandra Cerda on 10-20-2020 Levetiracetam Lvl 19 ug/mL [employer] Work Phone: Comment on above: A reference [...] serum concentrations and toxicity is not known. [employer] Phone: Blood Gas, VenousOrdered By: Radu Worrell on 10-19-2020 Arthur Test NOT REPORTED [employer] Phone: Carboxyhemoglobin NOT REPORTED 0.0 - 5.0 % [facility] Work Phone: Comment on above: FIO2 NOT REPORTED [facility] [employer] Work Phone: HCO3 (Bld) [Moles/Vol] 28 mmol/L 24.0 - 30.0 mmol/L [facility] [employer] Work Phone: Interpretation and review of laboratory results Abnormal [facility] [employer] Work Phone: Methemoglobin NOT REPORTED 0.0 - 1.9 % [facility] Work Phone: Mode NOT REPORTED [facility] [employer] Work Phone: Negative Base Excess, Moncho NOT REPORTED 0.0 - 2.0 mmol/L [facility] [employer] Work Phone: NOTIFICATION NOT REPORTED [facility] Work Phone: NOTIFICATION TIME NOT REPORTED [facility] [employer] Work Phone: O2 Device/Flow/% NOT REPORTED [facility] [employer] Work Phone: Oxygen saturation in Blood 39.6 % Low 60.0 - 85.0 % [facility] [employer] Work Phone: Oxyhemoglobin NOT REPORTED 95.0 - 98.0 % [facility] [employer] Work Phone: pCO2, Moncho 52.9 [facility] [employer] Work Phone: pCO2, Moncho, Temp Adj NOT REPORTED [facility] Work Phone: Peep/Cpap NOT REPORTED [facility] [employer] Work Phone: pH, Moncho 7.342 [facility] [employer] Work Phone: pH, Moncho, Temp Adj NOT REPORTED [facility] [employer] Work Phone: pO2, Moncho 24.4 Low [facility] [employer] Work Phone: pO2, Moncho, Temp Adj NOT REPORTED [facility] [employer] Work Phone: Positive Base Excess, Moncho 1.2 mmol/L 0.0 - 2.0 mmol/L [employer] Phone: PSV NOT REPORTED [employer] Phone: Pt Temp 37.0 [employer] Phone: Pt. Position NOT REPORTED [employer] Work Phone: Respiratory Rate NOT REPORTED [employer] Phone: Sample Site NOT REPORTED [employer] Work Phone: Set Rate NOT REPORTED [employer] Phone: Text for Respiratory DRAWN PER ED RN [employer] Phone: Total Hb NOT REPORTED 12.0 - 16.0 g/dl [employer] Phone: Total Rate NOT REPORTED [employer] Phone: VT NOT REPORTED [employer] Phone: [employer] Phone: Brain Natri. Peptideon 10-19 BNP Interpretation Pro-BNP Reference Range: Normal [place] Comment on above: Result Comment: Rule Out: <300 Horne Zone: Age <50 300-450 Age 50-75 300-900 Age >75 300-1800 Usually represents mild to moderate HF but other cardiopulmonary causes cannot be ruled out. Rule In: Age <50 >450 Age 50-75 >900 Age >75 >1800 Performed By: #### B C #### [facility] [address] [place] [address] Analytic Manager: Emerson Hall MD Natriuretic peptide B (Bld) [Mass/Vol] 158 pg/mL Normal <300 [place] Comment on above: Result Comment: Pro- BNP results cannot be compared to BNP results. Performed By: #### B C #### [facility] [address] [place] [address] Analytic Manager: Emerson Hall MD Brain Natriuretic PeptideOrd ered By: Radu Worrell on 10-19-2020 BNP Interpretation Pro-BNP Reference Range: [facility] Phone: Comment on above: Rule Out: <300 Horne Zone: Age <50 300-450 Age 50-75 300-900 Age >75 300-1800 Usually represents mild to moderate HF but other cardiopulmonary causes cannot be ruled out. Rule In: Age <50 >450 Age 50-75 >900 Age >75 >1800 Natriuretic peptide B (Bld) [Mass/Vol] 158 pg/mL <300 [employer] Phone: Comment on above: Pro-BNP results liana ot be compared to BNP results. CBC with Diffon 10-19-2020 Abs.Imm.Granulocyte 0.00 k/uL Normal 0.00-0.30 [place] Comment on above: Performed By: #### B C #### [facility] [address] [place] [address] [place] [address] Analytic Manager: Emerson Hall MD Immature granulocytes/100 WBC (Bld) 0 % Normal 0 [place] Comment on above: Performed By: #### B C #### [facility] [address] [place] [address] Analytic Manager: Emerson Hall MD Morphology Elliott (Bld) [Interp] Normal Normal [place] Comment on above: Performed By: #### B C #### [facility] [address] [place] [address] Dr. [place], [id number] Analytic Manager: Emerson Hall MD Erythrocyte distribution width (RBC) [Ratio] 12.3 % Normal 11.8-14.4 [place] Comment on above: Performed By: #### B C #### [facility] [address] [place] [address] Analytic Manager: Emerson Hall MD Hematocrit (Bld) [Volume fraction] 36.4 % Normal 36.3-47.1 [place] Comment on above: Performed By: #### B C #### [facility] [address] [place] [address] Analytic Manager: Emerson Hall MD Hemoglobin (Bld) [Mass/Vol] 12.1 g/dL Normal 11.9-15.1 [place] Comment on above: Performed By: #### B C #### [address] [place] [address] Analytic Manager: Emerson Hall MD MCH (RBC) [Entitic mass] 31.0 pg Normal 25.2-33.5 [place] Comment on above: Performed By: #### B C #### [address] [place] [address] Analytic Manager: Emerson Hall MD MCHC (RBC) [Mass/Vol] 33.2 g/dL Normal 28.4-34.8 [facility] Comment on above: Performed By: #### B C #### [address] [place], [place] [id number] Analytic Manager: Emerson Hall MD MCV (RBC) [Entitic vol] 93.3 fL Normal 82.6-102.9 [place] Comment on above: Performed By: #### B C #### [address] [place], [place] [id number] Analytic Manager: Emerson Hall MD NRBC Automated 0.0 per 100 WBC Normal 0.0 [place] Comment on above: Performed By: #### B C #### [facility] [address] [place] [address] [place] [address] Analytic Manager: Emerson Hall MD Platelet mean volume (Bld) [Entitic vol] 9.3 fL Normal 8.1-13.5 [place] Comment on above: Performed By: #### B C #### [address] [place] [address] Analytic Manager: Emerson Hlal MD Platelets (Bld) [#/Vol] 281 10*3/uL Normal 138-453 [place] Comment on above: Performed By: #### B C #### [facility] [address] [place], [place] [id number] Analytic Manager: Emerson Hall MD RBC (Bld) [#/Vol] 3.90 10*6/uL Low 3.95-5.11 [place] Comment on above: Performed By: #### B C #### [facility] [address] [place] [address] Analytic Manager: Emerson Hall MD WBC (Bld) [#/Vol] 13.5 10*3/uL High 3.5-11.3 [place] Comment on above: Performed By: #### B C #### [facility] [address] [place] [address] Dr. [place], [place] [address] Analytic Manager: Emerson Hall MD Auto Diff Performed NOT REPORTED Normal [facility] Comment on above: Performed By: #### B C #### [facility] [address] [place] [address] Dr. [place], [place] [address] Analytic Manager: Emerson Hall MD Platelet Estimate NOT REPORTED Normal [place] Comment on above: Performed By: #### B C #### [facility] [address] [place] [address] Dr. [place], [id number] Analytic Manager: Emerson Hall MD RBC morphology finding Nom (d) NOT REPORTED Normal [place] Comment on above: Performed By: #### B C #### [facility] [address] [place], [facility] Analytic Manager: Emerson Hall MD WBC Morphology NOT REPORTED Normal [facility] Comment on above: Performed By: #### B C #### [facility] [address] [place], [place] [id number] Analytic Manager: Emerson Hall MD CT HEAD WO CONTRASTon [...] Amina Lamas DO 10/19/20 Final result Normal [place] CT Head WO ContrastOrdered B y: Izzy Parul on 10-19-2020 No acute intracrania l abnormality. 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 Critical results were called by Dr. Amina Lamas to ANN Dyson on 10/19/2020 at 18:14. [facility] [employer] Work Phone: EXAMINATION: CT OF T HE [...] of the visualized skull or soft tissues. [employer] Work Phone: Romero, pn Incoming Radiant Results From [employer] - 10/19/2020 6:20 PM EDT EXAMINATION: CT [...] to ANN Dyson on 10/19/2020 at 18:14. [facility] Work Phone: [facility] Work Phone: Comp Metabolic Pr/rfx MGon 0 10-19-2020 (cont.) Normal [place] Comment on above: Result Comment: Aver age GFR for 70 or more years old: 75 mL/min/1.73sq m Chronic Kidney Disease: <60 mL/min/1.73sq m Kidney failure: <15 mL/min/1.73sq m eGFR calculated using average adult body mass. Additional eGFR calculator available at: http://www.Ch[employer]/multiple_crcl_2012.htm Performed By: #### B C #### [address] [place] [address] Analytic Manager: Emerson Hall MD Albumin [Mass/Vol] 3.7 g/dL Normal 3.5-5.2 [place] Comment on above: Performed By: #### B C #### [facility] [address] [place] [address] Analytic Manager: Emerson Hall MD Albumin/Glob Ratio 1.3 Normal 1.0-2.5 [place] Comment on above: Performed By: #### B C #### [address] [place] [address] Analytic Manager: Emerson Hall MD Alkaline Phos 69 U/L Normal 35-104 [facility] Comment on above: Performed By: #### B C #### [facility] [address] [place], [place] [id number] Analytic Manager: Emerson Hall MD ALT [Catalytic activity/Vol] 8 U/L Normal 5-33 [place] Comment on above: Performed By: #### B C #### [facility] [address] [place], [place] 8586483 Analytic Manager: Emerson Hall MD Anion gap [Moles/Vol] 13 mmol/L Normal 9-17 [facility] Comment on above: Performed By: #### B C #### [facility] [address] [place], [place] 2343083 Analytic Manager: Emerson Hall MD AST [Catalytic activity/Vol] 16 U/L Normal <32 [place] Comment on above: Performed By: #### B C #### [facility] [address] [place], [place] 7461283 Analytic Manager: Emerson Hall MD Bilirubin [Mass/Vol] 0.30 mg/dL Normal 0.3-1.2 [facility] Comment on above: Performed By: #### B C #### [facility] [address] [place], [place] 1611083 Analytic Manager: Emerson Hall MD BUN/CRE Ratio 18 Normal 9-20 [facility] Comment on above: Performed By: #### B C #### [facility] [address] [place], [place] 0256583 Analytic Manager: Emerson Hall MD Calcium [Mass/Vol] 9.1 mg/dL Normal 8.6-10.4 [place] Comment on above: Performed By: #### B C #### [facility] [address] [place], [place] 0001583 Analytic Manager: Emerson Hall MD Chloride [Moles/Vol] 101 mmol/L Normal 98-107 [facility] Comment on above: Performed By: #### B C #### [facility] [address] [place], [place] 8532783 Analytic Manager: Emerson Hall MD CO2 [Moles/Vol] 23 mmol/L Normal 20-31 [facility] Comment on above: Performed By: #### B C #### [facility] [address] [place], [place] 8068083 Analytic Manager: Emerson Hall MD Creatinine [Mass/Vol] 0.91 mg/dL High 0.50-0.90 [facility] Comment on above: Performed By: #### B C #### [facility] [address] [place], [place] 7324083 Analytic Manager: Emerson Hall MD GFR, Amer >60 Normal >60 [facility] Comment on above: Performed By: #### B C #### [facility] [address] [place] [address] Analytic Manager: Emerson Hall MD GFR,non Amer 59 mL/min Low >60 [facility] Comment on above: Performed By: #### B C #### [facility] [address] [place] [address] Analytic Manager: Emerson Hall MD Glucose [Mass/Vol] 137 mg/dL High 70-99 [place] Comment on above: Performed By: #### B C #### [facility] [address] [place] [address] Analytic Manager: Emerson Hall MD Potassium [Moles/Vol] 3.9 mmol/L Normal 3.7-5.3 [facility] Comment on above: Performed By: #### B C #### [facility] [address] [place], [place] 9138883 Analytic Manager: Emerson Hall MD Protein [Mass/Vol] 6.6 g/dL Normal 6.4-8.3 [place] Comment on above: Performed By: #### B C #### [facility] [address] [place] [address] Analytic Manager: Emerson Hall MD Sodium [Moles/Vol] 137 mmol/L Normal 135-144 [place] Comment on above: Performed By: #### B C #### [facility] [address] [place] [address] Analytic Manager: Emerson Hall MD Staging: Normal [place] Comment on above: Result Comment: Stag e 1: Some kidney damage normal GFR Stage 2: Mild kidney damage GFR 60-89 Stage 3: Moderate kidney damage GFR 30-59 Stage 4: Severe kidney damage GFR 15-29 Stage 5: Severe kidney damage GFR <15 ESRD - chronic treatment by dialysis or transplant Performed By: #### B C #### [facility] [address] [place] [address] [place] [address] Analytic Manager: Emerson Hall MD Urea nitrogen [Mass/Vol] 16 mg/dL Normal 8-23 [place] Comment on above: Performed By: #### B C #### [facility] [address] [place] [address] [place] [address] Analytic Manager: Emerson Hall MD Comprehensive Metabolic Pane l w/ Reflex to MGOrdered By: Radu Worrell on 10-19-2020 Albumin [Mass/Vol] 3.7 g/dL 3.5 - 5.2 g/dL [facility] Phone: Albumin/Globulin [Mass ratio] 1.3 {ratio} [facility] Phone: ALP (Bld) [Catalytic activity/Vol] 69 U/L 35 - 104 U/L [employer] Phone: ALT [Catalytic activity/Vol] 8 U/L 5 - 33 U/L [employer] Phone: Anion gap [Moles/Vol] 13 mmol/L 9 - 17 mmol/L [employer] Phone: AST [Catalytic activity/Vol] 16 U/L <32 [employer] Phone: Bilirubin [Mass/Vol] 0.30 mg/dL 0.3 - 1 .2 mg/dL [employer] Phone: Calcium [Mass/Vol] 9.1 mg/dL 8.6 - 10. 4 mg/dL [employer] Phone: Chloride [Moles/Vol] 101 mmol/L 98 - 10 7 mmol/L [employer] Phone: CO2 [Moles/Vol] 23 mmol/L 20 - 31 mmol/L [employer] Phone: Creatinine [Mass/Vol] 0.91 mg/dL High 0.50 - 0.90 mg/dL [employer] Phone: Free PSA/Total PSA [Mass fraction] 6.6 g/dL 6.4 - 8.3 g/dL [employer] Phone: GFR >60 >60 mL/min [employer] Phone: GFR Non- 59 mL/min Low >60 [employer] Phone: Glucose [Mass/Vol] 137 mg/dL High 70 - 99 mg/dL [employer] Phone: Interpretation and review of laboratory results Abnormal [employer] Phone: Potassium [Moles/Vol] 3.9 mmol/L 3.7 - 5.3 mmol/L [employer] Phone: Sodium [Moles/Vol] 137 mmol/L 135 - 144 mmol/L [employer] Phone: Urea nitrogen (BldV) [Mass/Vol] 16 mg/dL 8 - 23 mg/dL [employer] Phone: Urea nitrogen/Creatinine (Bld) [Mass ratio] 18 [employer] Phone: EKG 12 LeadOrdered By: Katy Worrell on 10-19-2020 Atrial Rate 50 BPM [employer] Phone: P [place] 23 degrees [employer] Phone: P-R Interval 152 ms [employer] Phone: Q-T Interval 480 ms [employer] Phone: QRS Duration 90 ms [employer] Phone: QTc Calculation (Bazett) 437 ms [employer] Phone: R [place] 7 degrees [employer] Phone: T [place] 42 degrees [employer] Phone: Ventricular Rate 50 BPM [employer] Phone: Sinus bradycardia Possible Anterior infarct , age undetermined Abnormal ECG When compared with ECG of 03-AUG-2020 09:21, No significant change was found Confirmed by JOSE RAMOS ([id number]) on 10/19/2020 10:36:19 PM [employer] Phone: Romero, [employer] Incoming E kg Results From [employer] - 10/19/2020 10:36 PM EDT Sinus bradycardia Possible Anterior infarct , age undetermined Abnormal ECG When compared with ECG of 03-AUG-2020 09:21, No significant change was found Confirmed by JOSE RAMOS ([id number]) on 10/19/2020 10:36:19 PM [employer] Phone: [employer] Phone: Laboratory - Chemistry and C hemistry - challengeOrdered By: Radu Worrell on 10-19-2020 GFR/1.73 sq M.predicted MDRD (S/P/Bld) [Vol rate/Area] [employer] Phone: Comment on above: Average GFR for 70 o r more years old: 75 mL/min/1.73sq m Chronic Kidney Disease: <60 mL/min/1.73sq m Kidney failure: <15 mL/min/1.73sq m eGFR calculated using average adult body mass. Additional eGFR calculator available at: http://www.[employer]/multiple_crcl_2012.htm Stage 1: Some kidney damage normal GFR Stage 2: Mild kidney damage GFR 60-89 Stage 3: Moderate kidney damage GFR 30-59 Stage 4: Severe kidney damage GFR 15-29 Stage 5: Severe kidney damage GFR <15 ESRD - chronic treatment by dialysis or transplant Lactic Acidon 10-19-2020 Lactate [Moles/Vol] 1.1 mmol/L Normal 0.5-2.2 [place] Comment on above: Performed By: #### B C #### [facility] [address] [place] [address] [place] [address] Analytic Manager: Emerson Hall MD Lactic AcidOrdered By: Katy Worrell on 10-19-2020 Lactate [Moles/Vol] 1.1 mmol/L 0.5 - 2. 2 mmol/L [facility] Work Phone: [facility] Work Phone: Lipaseon 10-19-2020 Lipase [Catalytic activity/Vol] 21 U/L Normal 13-60 [place] Comment on above: Performed By: #### B C #### [facility] [address] [place] [address] Analytic Manager: Emerson Hall MD LipaseOrdered By: Radu howard on 10-19-2020 Lipase [Catalytic activity/Vol] 21 U/L 13 - 60 U/L [facility] Work Phone: Microscopic UrinalysisOrdere d By: Radu Worrell on 10-19-2020 - [facility] Work Phone: Amorphous, UA NOT REPORTED None [facility] Work Phone: Bacteria, UA TRACE Abnormal None [facility] [employer] Work Phone: Casts UA NOT REPORTED /LPF [facility] Work Phone: Crystals, UA NOT REPORTED None /HPF [facility] Work Phone: Epithelial Cells UA 0 TO 2 [facility] Work Phone: Interpretation and review of laboratory results Abnormal [facility] Work Phone: Mucus, UA 1+ Abnormal None [facility] Work Phone: Other Observations UA NOT REPORTED NOT REQ. M erc [employer] Work Phone: RBC, UA 0 TO 2 [facility] Work Phone: Renal Epithelial, UA NOT REPORTED 0 /HPF Me [facility] [employer] Work Phone: Trichomonas, UA NOT REPORTED None [facility] Work Phone: WBC, UA 0 TO 2 [facility] [employer] Work Phone: Yeast, UA NOT REPORTED None [facility] [employer] Work Phone: [facility] [employer] Work Phone: No Panel InformationOrdered By: Radu Worrell on 10-19-2020 [facility] [employer] Work Phone: Troponinon 10-19-2020 Troponin, High Sens 10 ng/L Normal 0-14 [place] Comment on above: Result Comment: High Sensitivity Troponin values cannot be compared with other Troponin methodologies. Patients with high levels of Biotin oral intake (i.e >5mg/day) may have falsely decreased Troponin levels. Samples collected within 8 hours of biotin intake may require additional information for diagnosis. Performed By: #### B C #### [facility] [address] [place] [address] Analytic Manager: Emerson Hall MD Troponin Interp. NOT REPORTED Normal [place] Comment on above: Performed By: #### B C #### [facility] [address] [place] [address] Analytic Manager: Emerson Hall MD Troponin T NOT REPORTED Normal <0.03 [place] Comment on above: Performed By: #### B C #### [facility] [address] [place] [address] Analytic Manager: Emerson Hall MD TroponinOrdered By: Radu Worrell on 10-19-2020 Troponin Interp NOT REPORTED [facility] Work Phone: Troponin T NOT REPORTED <0.03 ng/mL [facility] Work Phone: Troponin, High Sensitivity 10 ng/L 0 - 14 ng/L [facility] Work Phone: Comment on above: High Sensitivity Troponin values cannot be compared with other Troponin methodologies. Patients with high levels of Biotin oral intake (i.e >5mg/day) may have falsely decreased Troponin levels. Samples collected within 8 hours of biotin intake may require additional information for diagnosis. UA w/Reflex Cultureon 2020 Bilirubin, SemiQt,Ur SMALL Abnormal NEG [facility] Comment on above: Performed By: #### U DONNY REBOLLEDO #### [facility] [address] [place] [address] Analytic Manager: Emerson Hall MD Blood, Urine Negative Normal NEG [place] Comment on above: Performed By: #### U DONNY REBOLLEDO #### [facility] [address] [place] [address] Analytic Manager: Emerson Hall MD Clarity (U) CLEAR Normal CLEAR [place] Comment on above: Performed By: #### U JANELL REBOLLEDOO #### [facility] [address] [place] [address] Analytic Manager: Emerson Hall MD Color (U) YELLOW Normal YEL [place] Comment on above: Performed By: #### U JANELL REBOLLEDOO #### [facility] [address] [place], [place] 4937883 Analytic Manager: Emerson Hall MD Glucose Ql (U) Negative Normal NEG [facility] in [facility] Comment on above: Performed By: #### U AX, UMICAO #### [facility] [address] [place], [place] 1686783 Analytic Manager: Emerson Hall MD Ketones Ql (U) 2+ Abnormal NEG [facility] Comment on above: Performed By: #### U AX, UMICAO #### [facility] [address] [place] [address] [place]. [place], [place] [id number] Analytic Manager: Emerson Hall MD Leukocyte esterase Test strip Ql (U) Negative Normal NEG [place] Comment on above: Performed By: #### U AX, UMICAO #### [address] [place] [address] Analytic Manager: Emerson Hall MD Nitrite,Ur Negative Normal [facility] Comment on above: Performed By: #### U AX, UMICAO #### [address] [place] [address] Analytic Manager: Emerson Hall MD PH,Ur 5.0 Normal 5.0-9.0 [place] Comment on above: Performed By: #### U AX, UMICAO #### [facility] [address] [place] [address] [place] [address] Analytic Manager: Emerson Hall MD Protein Ql (U) TRACE Abnormal NEG [facility] Comment on above: Performed By: #### U AX, UMICAO #### [facility] [address] [place] [address] [place]. [place], [place] 1628383 Analytic Manager: Emerson Hall MD Spec. [place],Ur >1.030 High 1.010-1.020 [facility] Comment on above: Performed By: #### U AX, UMICAO #### [facility] [address] [place] [address] Analytic Manager: Emerson Hall MD Urobilinogen,Ur Normal Normal NORM [facility] Comment on above: Performed By: #### U AX, UMICAO #### [facility] [address] [place] [address] Analytic Manager: Emerson Hall MD Comment NOT REPORTED Normal [place] Comment on above: Performed By: #### U AX, UMICAO #### [facility] [address] [place] [address] Analytic Manager: Emerson Hall MD Urinalysis Reflex to Culture Ordered By: Radu Worrell on 10-19-2020 Bilirubin Urine SMALL Abnormal NEGATIVE [facility] Work Phone: Color, UA YELLOW YELLOW [facility] Work Phone: Glucose, Ur Negative NEGATIVE [facility] Work Phone: Interpretation and review of laboratory results Abnormal [facility] Phone: Ketones Ql (U) 2+ Abnormal NEGATIVE [facility] Work Phone: Leukocyte esterase Test strip Ql (U) Negative NEGATIVE [facility] Phone: Nitrite, Urine Negative NEGATIVE [facility] Work Phone: pH, UA 5.0 [facility] Work Phone: Protein, UA TRACE Abnormal NEGATIVE [facility] Work Phone: Specific [place], UA >1.030 High [facility] [employer] Work Phone: Turbidity UA CLEAR CLEAR [facility] Work Phone: Urinalysis Comments NOT REPORTED [facility] [employer] Work Phone: Urine Hgb Negative NEGATIVE [facility] Phone: Urobilinogen, Urine Normal Normal [facility] Work Phone: [facility] Work Phone: Urinalysis,Microon 1 ----- Normal [place] Comment on above: Performed By: #### U AX, UMICAO #### [facility] [address] [place], [place] 667[address]83 Analytic Manager: Emerson Hall MD Bacteria TRACE Abnormal [facility] Comment on above: Performed By: #### U AX, UMICAO #### [facility] [address] [place], [place] 477[address]83 Analytic Manager: Emerson Hall MD Epithelial cells LM Ql (Urine sed) 0 TO 2 Normal 0-25 [place] Comment on above: Performed By: #### U AX UMICAO #### [facility] [address] [place], [place] [id number] Analytic Manager: Emerson Hall MD Mucus Strands 1+ Abnormal [facility] Comment on above: Performed By: #### U AX UMICAO #### [facility] [address] [place] [address] Analytic Manager: Emerson Hall MD Urine RBC's 0 TO 2 Normal 0-2 [place] Comment on above: Performed By: #### U AX, UMICAO #### [facility] [address] [place] [address] Analytic Manager: Emerson Hall MD Urine WBC's 0 TO 2 Normal 0-5 [place] Comment on above: Performed By: #### U AX, UMICAO #### [facility] [address] [place], [place] [address]83 Analytic Manager: Emerson Hall MD Amorphous sediment LM Ql (Urine sed) NOT REPORTED Normal [facility] Comment on above: Performed By: #### U AX, UMICAO #### [facility] [address] [place] [address] Analytic Manager: Emerson Hall MD Casts NOT REPORTED Normal [place] Comment on above: Performed By: #### U AX, UMICAO #### [facility] [address] [place], [place] [address] Analytic Manager: Emerson Hall MD Crystals LM Nom (Urine sed) NOT REPORTED Normal NONE [place] Comment on above: Performed By: #### U AX, UMICAO #### [facility] [address] [place] [address] Analytic Manager: Emerson Hall MD Epithelial, Renal NOT REPORTED Normal 0 [place] Comment on above: Performed By: #### U AX, UMICAO #### [facility] [address] [place] [address] [place] [address] Analytic Manager: Emerson Hall MD Other Observations NOT REPORTED Normal NREQ [facility] Comment on above: Performed By: #### U AX, UMICAO #### [address] [place] [address] Analytic Manager: Emerson Hall MD Trichomonas NOT REPORTED Normal NONE [facility] Comment on above: Performed By: #### U AX, UMICAO #### [facility] [address] [place] [address] [place] [address] Analytic Manager: Emerson Hall MD Yeast NOT REPORTED Normal NONE [place] Comment on above: Performed By: #### U AX, UMICAO #### [facility] [address] [place] [address] Dr. [place], [place] [address]83 Analytic Manager: Emerson Hall MD Venous Blood Gaseson 10-19-2 021 Body Temp. 37.0 Normal [place] Comment on above: Performed By: #### U AX, UMICAO #### [facility] [address] [place], [place] 1253983 Analytic Manager: Emerson Hall MD HCO3 (Bld) [Moles/Vol] 28.0 mmol/L Normal 24.0-30.0 [facility] Comment on above: Performed By: #### U AX, UMICAO #### [facility] [address] [place], [place] 2018683 Analytic Manager: Emerson Hall MD Oxygen (Bld) [Partial pressure] 24.4 mm[Hg] Low 30.0-50.0 [place] Comment on above: Performed By: #### U AX UMICAO #### [address] [place], [place] [address]83 Analytic Manager: Emerson Hall MD Oxygen saturation in Blood 39.6 % Low 60.0-85.0 [place] Comment on above: Performed By: #### U AX UMICAO #### [address] [place], [place] [id number] Analytic Manager: Emerson Hall MD pCO2 52.9 Normal 39-55 [place] Comment on above: Performed By: #### U AX, UMICAO #### [address] [place], [place] [id number] Analytic Manager: Emerson Hall MD pH (Bld) 7.342 [pH] Normal 7.32-7.42 [place] Comment on above: Performed By: #### U AX, UMICAO #### [facility] [address] [place] [address] Dr. [place], [place] [id number] Analytic Manager: Emerson Hall MD Positive Base Excess 1.2 mmol/L Normal 0.0-2.0 [facility] Comment on above: Performed By: #### U AX, UMICAO #### [facility] [address] [place] [address] Dr[address] [place], [place] [id number] Analytic Manager: Emerson Hall MD Text for Respiratory DRAWN PER ED RN Normal [place] Comment on above: Performed By: #### U AX, UMICAO #### [facility] [address] [place], [place] [id number] Analytic Manager: Emerson Hall MD Arthur Test NOT REPORTED Normal [place] Comment on above: Performed By: #### U AX, UMICAO #### [facility] [address] [place] [address] Analytic Manager: Emerson Hall MD Carboxy Hgb NOT REPORTED Normal 0.0-5.0 [facility] Comment on above: Performed By: #### U AX, UMICAO #### [facility] [address] [place] [address] Analytic Manager: Emerson Hall MD FIO2 NOT REPORTED Normal [place] Comment on above: Performed By: #### U AX, UMICAO #### [facility] [address] [place] [address] Analytic Manager: Emerson Hall MD Methemoglobin NOT REPORTED Normal 0.0-1.9 [facility] Comment on above: Performed By: #### U AX, UMICAO #### [facility] [address] [place] [address] Analytic Manager: Emerson Hall MD Mode NOT REPORTED Normal [place] Comment on above: Performed By: #### U AX, UMICAO #### [facility] [address] [place] [address] Analytic Manager: Emerson Hall MD Negative Base Excess NOT REPORTED Normal 0.0-2.0 [facility] Comment on above: Performed By: #### U AX, UMICAO #### [facility] [address] [place], [place] [id number] Analytic Manager: Emerson Hall MD Notification Time NOT REPORTED Normal [place] Comment on above: Performed By: #### U AX, UMICAO #### [facility] [address] [place] [address] Analytic Manager: Emerson Hall MD Notification: NOT REPORTED Normal [facility] Comment on above: Performed By: #### U AX, UMICAO #### [facility] [address] [place] [address] Analytic Manager: Emerson Hall MD O2 Device/Flow/% NOT REPORTED Normal [place] Comment on above: Performed By: #### U AX, UMICAO #### [facility] [address] [place] [address] Analytic Manager: Emerson Hall MD Oxyhemoglobin NOT REPORTED Normal 95.0-98.0 [facility] Comment on above: Performed By: #### U AX, UMICAO #### [facility] [address] [place] [address] Analytic Manager: Emerson Hall MD Pco2 Adj'd for Temp. NOT REPORTED Normal 39.0-55.0 [facility] Comment on above: Performed By: #### U AX, UMICAO #### [facility] [address] [place] [address] Analytic Manager: Emerson Hall MD PEEP/CPAP NOT REPORTED Normal [place] Comment on above: Performed By: #### U AX, UMICAO #### [facility] [address] [place] [address] Analytic Manager: Emerson Hall MD pH Adjst'd for Temp. NOT REPORTED Normal 7.320-7.420 [facility] Comment on above: Performed By: #### U AX, UMICAO #### [facility] [address] [place], [place] [phone] Analytic Manager: Emerson Hall MD pO2 Adj'd for Temp. NOT REPORTED Normal 30.0-50.0 [facility] Comment on above: Performed By: #### U AX, UMICAO #### [facility] [address] [place] [address] Analytic Manager: Emerson Hall MD PSV NOT REPORTED Normal [place] Comment on above: Performed By: #### U AX, UMICAO #### [facility] [address] [place] [address] Analytic Manager: Emerson Hall MD Pt. Position NOT REPORTED Normal [facility] Comment on above: Performed By: #### U AX, UMICAO #### [facility] [address] [place] [address] Analytic Manager: Emerson Hall MD Respiratory Rate NOT REPORTED Normal [place] Comment on above: Performed By: #### U AX, UMICAO #### [facility] [address] [place] [address] [place] [address] Analytic Manager: Emerson Hall MD Set Rate NOT REPORTED Normal [place] Comment on above: Performed By: #### U AX, UMICAO #### [address] [place] [address] Analytic Manager: Emerson Hall MD Site Drawn NOT REPORTED Normal [place] Comment on above: Performed By: #### U AX, UMICAO #### [facility] [address] [place] [address] Analytic Manager: Emerson Hall MD Total Hb NOT REPORTED Normal 12.0-16.0 [place] Comment on above: Performed By: #### U AX, UMICAO #### [facility] [address] [place] [address] Analytic Manager: Emerson Hall MD Total Rate NOT REPORTED Normal [place] Comment on above: Performed By: #### U AX, DONNY #### [facility] [address] [place] [address] Analytic Manager: Emerson Hall MD VT NOT REPORTED Normal [place] Comment on above: Performed By: #### U DONNY REBOLLEDO #### [facility] [address] [place] [address] Analytic Manager: Emerson Hall MD XR CHEST PORTABLEon 10-20-19 [...] Milton Zheng MD 10/19/20 Final result Normal [place] XR CHEST PORTABLEOrdered By: Radu Worrell on 10-19-2020 No acute cardiopulmonary disease [employer] Phone: EXAMINATION: ONE XRA Y VIEW OF [...] bony abnormalities. The hilar structures are normal. [employer] Phone: Romero, Mhpn Incoming Radiant Results From [employer] - 10/19/2020 7:02 PM EDT EXAMINATION: ONE [...] are normal. IMPRESSION: No acute cardiopulmonary disease [employer] Phone: [employer] Phone: ANION GAPon 08-05-2020 Anion gap [Moles/Vol] 8.0 mmol/L Normal 8.0-16.[address] [facility] Comment on above: Result Comment: ANIO N GAP = Sodium -(Chloride + CO2) Performed By: #### C BCWD, BMP, MG, ANION, EGFR1 #### [facility] [employer] [address] [place] [address] Anion GapOrdered By: Jack Mensah on 08-05-2020 Anion gap [Moles/Vol] 8.0 mmol/L 8.0 - 16.0 meq/L [employer] Phone: Comment on above: ANION GAP = Sodium - (Chloride + CO2) Performed at [facility] [address] [place] [address] BASIC METABOL PANELon 2020 Calcium [Mass/Vol] 9.3 mg/dL Normal 8.5-10.5 [facility] Comment on above: Performed By: #### C BCWD, BMP, MG, ANION, EGFR1 #### [facility] [address] [place] [address] Chloride [Moles/Vol] 107 mmol/L Normal 98-111 [facility] Comment on above: Performed By: #### C BCWD, BMP, MG, ANION, EGFR1 #### [facility] [address] [place] [address] CO2 [Moles/Vol] 23 mmol/L Normal 23-33 [facility] Comment on above: Performed By: #### C BCWD, BMP, MG, ANION, EGFR1 #### [facility] [employer] [address] [place] [address] Creatinine [Mass/Vol] 0.6 mg/dL Normal 0.4-1.[address] [facility] Comment on above: Performed By: #### C BCWD, BMP, MG, ANION, EGFR1 #### [facility] [employer] [address] [place] [address] Glucose [Mass/Vol] 101 mg/dL Normal 70-108 [facility] Comment on above: Performed By: #### C BCWD, BMP, MG, ANION, EGFR1 #### [facility] [address] [place] [address] Potassium [Moles/Vol] 3.8 mmol/L Normal 3.5-5.[address] [facility] Comment on above: Performed By: #### C BCWD, BMP, MG, ANION, EGFR1 #### [facility] [address] [address] Sodium [Moles/Vol] 138 mmol/L Normal 135-145 [facility] Comment on above: Performed By: #### C BCWD, BMP, MG, ANION, EGFR1 #### [facility] [employer] [address] [address] Urea nitrogen [Mass/Vol] 12 mg/dL Normal 7-22 [facility] Comment on above: Performed By: #### C BCWD, BMP, MG, ANION, EGFR1 #### [facility] [employer] [address] [place] [address] Basic Metabolic PanelOrdered By: Jack Mensah on 08-05-2020 Calcium [Mass/Vol] 9.3 mg/dL 8.5 - 10. 5 mg/dL [employer] Phone: Comment on above: Performed at [facility] [address] [place] [address] Chloride [Moles/Vol] 107 mmol/L 98 - 11 1 meq/L [employer] Phone: CO2 [Moles/Vol] 23 mmol/L 23 - 33 meq/L [facility] Work Phone: Creatinine [Mass/Vol] 0.6 mg/dL 0.4 - 1.2 mg/dL [employer] Phone: Glucose [Mass/Vol] 101 mg/dL 70 - 108 mg/dL [employer] Phone: Potassium [Moles/Vol] 3.8 mmol/L 3.5 - 5.2 meq/L [employer] Phone: Sodium [Moles/Vol] 138 mmol/L 135 - 145 meq/L [employer] Phone: Urea nitrogen (BldV) [Mass/Vol] 12 mg/dL 7 - 22 mg/dL [employer] Phone: CBC Auto DifferentialOrdered By: Jack Mensah on 08-05-2020 Basophils (Bld) [#/Vol] 0.1 10*3/uL [employer] Phone: Basophils/100 WBC (Bld) 1.4 % [employer] Phone: Eosinophils Absolute 0.3 [employer] Phone: Eosinophils/100 WBC (Bld) 3.3 % [employer] Phone: Erythrocyte distribution width (RBC) [Ratio] 13.2 % 11.5 - 14.5 % [employer] Phone: Erythrocyte distribution width (RBC) [Ratio] 47.8 fL High 35.0 - 45.0 fL [employer] Phone: Hematocrit (Bld) [Volume fraction] 42.3 % 37.0 - 47.0 % [employer] Phone: Hemoglobin.gastrointes tinal spec 1 Ql (Stl) 13.1 [employer] Work Phone: Immature Grans (Abs) 0.04 [facility] [employer] Work Phone: Immature granulocytes/100 WBC (Bld) 0.5 % [employer] Work Phone: Interpretation and review of laboratory results Abnormal [employer] Phone: Lymphocytes Absolute 2.3 [employer] Phone: Lymphocytes/100 WBC (Bld) 29.4 % [employer] Phone: MCH (RBC) [Entitic mass] 30.5 pg 26.0 - 33.0 pg [employer] Work Phone: MCHC (RBC) [Mass/Vol] 31.0 g/dL Low [employer] Work Phone: MCV (RBC) [Entitic vol] 98.6 fL 81.0 - 99.0 fL [employer] Phone: Monocytes Absolute 0.7 [employer] Work Phone: Monocytes/100 WBC (Bld) 9.4 % [employer] Work Phone: nRBC 0 /100 wbc [employer] Phone: Comment on above: Performed at [facility] [address] [place] [address] Platelet mean volume (Bld) [Entitic vol] 8.9 fL Low 9.4 - 12.4 fL [employer] Phone: Platelets (Bld) [#/Vol] 242 10*3/uL [employer] Work Phone: RBC (Bld) [#/Vol] 4.29 10*6/uL [employer] Work Phone: Segmented neutrophils/100 WBC (Bld) 56 % [employer] Work Phone: Segs Absolute 4.3 [employer] Work Phone: WBC (Bld) [#/Vol] 7.7 10*3/uL [employer] Work Phone: CBC WITH DIFFERENTIALon 07-10 ABS BASOPHILS 0.1 thou/mm3 Normal 0.0-0.1 [facility] Comment on above: Performed By: #### C BCWD, BMP, MG, ANION, EGFR1 #### [address] [address] ABS EOSINOPHILS 0.3 thou/mm3 Normal 0.0-0.4 [facility] Comment on above: Performed By: #### C BCWD, BMP, MG, ANION, EGFR1 #### [address] [address] ABS IMMATURE GRANS (IG) 0.04 thou/mm3 Normal 0.00-0.07 [facility] Comment on above: Performed By: #### C BCWD, BMP, MG, ANION, EGFR1 #### [address] [address] ABS LYMPHOCYTES 2.3 thou/mm3 Normal 1.0-4.8 [facility] Comment on above: Performed By: #### C BCWD, BMP, MG, ANION, EGFR1 #### [address] [address] ABS MONOCYTES 0.7 thou/mm3 Normal 0.4-1.3 [facility] Comment on above: Performed By: #### C BCWD, BMP, MG, ANION, EGFR1 #### [address] [address] ABS NEUTROPHILS 4.3 thou/mm3 Normal 1.8-7.7 [facility] Comment on above: Performed By: #### C BCWD, BMP, MG, ANION, EGFR1 #### [facility] [employer] [address] [address] Basophils/100 WBC (Bld) 1.4 % Normal [facility] Comment on above: Performed By: #### C BCWD, BMP, MG, ANION, EGFR1 #### [facility] [address] [address] Eosinophils/100 WBC (Bld) 3.3 % Normal [facility] Comment on above: Performed By: #### C BCWD, BMP, MG, ANION, EGFR1 #### [facility] [employer] [address] [place] [address] Erythrocyte distribution width (RBC) [Ratio] 13.2 % Normal 11.5-14.5 [facility] Comment on above: Performed By: #### C BCWD, BMP, MG, ANION, EGFR1 #### [facility] [address] [place] [address] Hematocrit (Bld) [Volume fraction] 42.3 % Normal 37.0-47.0 [facility] Comment on above: Performed By: #### C BCWD, BMP, MG, ANION, EGFR1 #### [address] [address] Hemoglobin (Bld) [Mass/Vol] 13.1 g/dL Normal 12.0-16.0 [facility] Comment on above: Performed By: #### C BCWD, BMP, MG, ANION, EGFR1 #### [address] [address] IMMATURE GRANS (IG) 0.5 % Normal [facility] Comment on above: Performed By: #### C BCWD, BMP, MG, ANION, EGFR1 #### [address] [address] Lymphocytes/100 WBC (Bld) 29.4 % Normal [facility] Comment on above: Performed By: #### C BCWD, BMP, MG, ANION, EGFR1 #### [address] [address] MCH (RBC) [Entitic mass] 30.5 pg Normal 26.0-33.0 [facility] Comment on above: Performed By: #### C BCWD, BMP, MG, ANION, EGFR1 #### [address] [address] MCHC (RBC) [Mass/Vol] 31.0 g/dL Low 32.2-35.[address] [facility] Comment on above: Performed By: #### C BCWD, BMP, MG, ANION, EGFR1 #### [address] [address] MCV (RBC) [Entitic vol] 98.6 fL Normal 81.0-99.0 [facility] Comment on above: Performed By: #### C BCWD, BMP, MG, ANION, EGFR1 #### [facility] [address] [address] Monocytes/100 WBC (Bld) 9.4 % Normal [facility] Comment on above: Performed By: #### C BCWD, BMP, MG, ANION, EGFR1 #### [facility] [employer] [address] [place] [address] Neutrophils/100 WBC (Bld) 56.0 % Normal [facility] Comment on above: Performed By: #### C BCWD, BMP, MG, ANION, EGFR1 #### [place] [address] NRBC 0 /100 wbc Normal [facility] Comment on above: Performed By: #### C BCWD, BMP, MG, ANION, EGFR1 #### [address] [address] PLATELET 242 thou/mm3 Normal 130-400 [facility] Comment on above: Performed By: #### C BCWD, BMP, MG, ANION, EGFR1 #### [address] [address] Platelet mean volume (Bld) [Entitic vol] 8.9 fL Low 9.4-12.4 [facility] Comment on above: Performed By: #### C BCWD, BMP, MG, ANION, EGFR1 #### [facility] [address] [address] RBC 4.29 mill/mm3 Normal 4.20-5.40 [facility] Comment on above: Performed By: #### C BCWD, BMP, MG, ANION, EGFR1 #### [facility] [address] [address] RDW-SD 47.8 fL High 35.0-45.0 [facility] Comment on above: Performed By: #### C BCWD, BMP, MG, ANION, EGFR1 #### [facility] [employer] [address] [place] [address] WBC 7.7 thou/mm3 Normal 4.8-10.8 [facility] Comment on above: Performed By: #### C BCWD, BMP, MG, ANION, EGFR1 #### [facility] [address] [place] [address] Culture, Reflexed, UrineOrde red By: Darien Ferrara on 08-05-2020 Interpretation and review of laboratory results Abnormal [employer] Phone: Organism Mixed Growth Abnormal [employer] Phone: Urine Culture Reflex Mixed growth. The mixture of organisms present represents both organisms that may cause urinary tract infections and organisms that are not a common cause of urinary tract infections and are possibly skin hermilo or distal urethral hermilo. Abnormal [employer] Phone: Source: urine, clean catch Site: Current Antibiotics: not stated [employer] Phone: GFR, ESTIMATEDon 08-05-2020 GFR/1.73 sq M.predicted MDRD (S/P/Bld) [Vol rate/Area] mL/min/{1.73_m2} Normal [facility] Comment on above: Result Comment: Stag e [...] C BCWD, BMP, MG, ANION, EGFR1 #### [facility] [address] [place] [address] GLUCOSE POCon 08-05-2020 Glucose [Mass/Vol] 88 mg/dL Normal 70-108 [facility] Comment on above: Performed By: #### P OCGL #### [facility] [address] [place] [address] Glomerular Filtration Rate, EstimatedOrdered By: Jack Mensah on 08-05-2020 GFR/1.73 sq M.predicted MDRD (S/P/Bld) [Vol rate/Area] mL/min/{1.73_m2} ml/min/1.73m 2 [employer] Phone: Comment on above: Stage Description GF [...] Vol. 139 (2) pg 137-147. Performed at [facility] [address] [place] [address] MAGNESIUMon 08-05-2020 Magnesium [Mass/Vol] 2.0 mg/dL Normal 1.6-2.4 [facility] Comment on above: Performed By: #### C BCWD, BMP, MG, ANION, EGFR1 #### [facility] [address] [place] [address] MagnesiumOrdered By: Jack Mensah on 08-05-2020 Magnesium [Mass/Vol] 2.0 mg/dL 1.6 - 2 .4 mg/dL [employer] Phone: Comment on above: Performed at [facility] [address] [place] [address] POCT GlucoseOrdered By: Lexie Garcia on 08-05-2020 Glucose [Mass/Vol] 88 mg/dL 70 - 108 mg/dl [employer] Phone: Comment on above: Performed at [facility] [address] [place] [address] MRI BRAIN W WO CONTRASTOrder ed By: [...] Dr. Gracie Kruse on 08/04/2020 1:28 PM [employer] Phone: Romero, Wcoh Incoming Radiant Results From [employer] - 08/04/2020 1:30 PM EDT PROCEDURE: MRI [...] Dr. Gracie Kruse on 08/04/2020 1:28 PM [employer] Phone: REFLEX CULT URon 08-04-2020 REFLEX CULT UR MICROBIOLOGY REPORT [facility], [address] [place] [address], [address] PATIENT: LILLIANA PATEL LOCATION: [address] [place], [place] [address] -A : 1940 AGE: 79 SEX: F ADM: 08/04/20 Att. Physician: DARLYN GARCIA Order Id: [id number] Req. Physician: DARIEN FERRARA Source: urine, clean [...] urethral hermilo. Organism 00 Mixed Growth Normal [facility] Comment on above: Performed By: #### U RCS2 #### [facility] [employer] [address] [place] [address] T4 (FREE)on 08-04-2020 T4 (FREE) 1.00 ng/dL Normal 0.93-1.76 [facility] Comment on above: Performed By: #### C BCWD, BMP, MG, ANION, EGFR1 #### [facility] [address] [place] [address] T4, FreeOrdered By: Shirley Ferrara on 08-04-2020 Free T4 [Mass/Vol] 1 ng/dL 0.93 - 1. 76 ng/dL [employer] Work Phone: Comment on above: Performed at [facility] [address] [place] [address] TSH W/ REFLEX FT4on 08-05-19 21 TSH THIRD GENERATION 5.250 uIU/mL High 0.400-4.[address] [facility] Comment on above: Performed By: #### T SHRF, VB12F, FT4 #### [facility] [address] [place] [address] TSH with ReflexOrdered By: Jessica Ferrara on 08-04-2020 Interpretation and review of laboratory results Abnormal [employer] Work Phone: TSH Qn 5.250 m[IU]/L High [facility] Work Phone: Comment on above: Performed at [facility] [address] [place] [address] UA WITH MICROSCOPICon 2020 BACTERIA FEW Normal FEW/NONE SEEN [facility] Comment on above: Performed By: #### U RCS2 #### [facility] [address] [place] [address] CASTS NONE SEEN Normal NONE SEEN [facility] Comment on above: Performed By: #### U RCS2 #### [facility] [address] [place] [address] CASTS 2 NONE SEEN Normal NONE SEEN [facility] Comment on above: Performed By: #### U RCS2 #### [facility] [address] [place] [address] Crystals LM Nom (Urine sed) NONE SEEN Normal NONE SEEN [facility] Comment on above: Performed By: #### U RCS2 #### [facility] [address] [place] [address] EPITHELIAL 3 /hpf Normal 3-5/hpf [facility] Comment on above: Performed By: #### U RCS2 #### [facility] [address] [place] [address] MISCELLANEOUS 2 NONE SEEN Normal [facility] Comment on above: Performed By: #### U RCS2 #### [facility] [address] [place] [address] RBC 0 /hpf Normal 0-2/hpf [facility] Comment on above: Performed By: #### U RCS2 #### [facility] [address] [place] [address] RENAL EPITHELIAL NONE SEEN Normal NONE SEEN [facility] Comment on above: Performed By: #### U RCS2 #### [facility] [address] [place] [address] WBC 25 /hpf Normal 0-4/hpf [facility] Comment on above: Performed By: #### U RCS2 #### [facility] [address] [place] [address] [place] [address] YEAST NONE SEEN Normal NONE SEEN [facility] Comment on above: Performed By: #### U RCS2 #### [facility] [address] [place] [address] Bilirubin Ql (U) Negative Normal NEGATIVE [facility] Comment on above: Performed By: #### U RCS2 #### [facility] [address] [place] [address] CHARACTER CLEAR Normal CLEAR-SL CLOUD [facility] Comment on above: Performed By: #### U RCS2 #### [facility] [address] [place] [address], [place] [address] Color (U) YELLOW Normal STRAW-YELLOW [facility] Comment on above: Performed By: #### U RCS2 #### [facility] [address] [place] [address] Glucose Ql (U) Negative Normal NEGATIVE [facility] Comment on above: Performed By: #### U RCS2 #### [facility] [address] [place] [address] Hemoglobin Ql (U) TRACE Abnormal NEGATIVE [facility] Comment on above: Performed By: #### U RCS2 #### [facility] [address] [place] [address] Ketones Ql (U) Negative Normal NEGATIVE [facility] Comment on above: Performed By: #### U RCS2 #### [facility] [address] [place] [address] LEUKOCYTES LARGE Abnormal NEGATIVE [facility] Comment on above: Performed By: #### U RCS2 #### [facility] [address] [place] [id number] Nitrite Ql (U) Negative Normal NEGATIVE [facility] Comment on above: Performed By: #### U RCS2 #### [facility] [address] [place] [address], [place] [address] pH (U) 7.0 [pH] Normal 5.0 - 9.0 [facility] Comment on above: Performed By: #### U RCS2 #### [facility] [address] [place] [address]127 Protein Ql (U) Negative Normal NEGATIVE [facility] Comment on above: Performed By: #### U RCS2 #### [facility] [address] [place] [address] Specific gravity (U) [Rel density] 1.012 Normal 1.002-1.030 [facility] Comment on above: Performed By: #### U RCS2 #### [facility] [address] [place] [address] Urobilinogen Qn (U) 0.2 {Kannan'U}/dL Normal 0.0 - 1. 0 [facility] Comment on above: Performed By: #### U RCS2 #### [facility] [address] [place] [address] Urine with Reflexed MicroOrd ered By: Darien Ferrara on 08-04-2020 Bacteria, UA FEW FEW/NONE SEEN /hpf [employer] Work Phone: Bilirubin Urine Negative NEGATIVE [facility] Work Phone: Blood, Urine TRACE Abnormal NEGATIVE [employer] Work Phone: CASTS 2 NONE SEEN NONE SEEN /lpf [employer] Work Phone: Casts UA NONE SEEN NONE SEEN /lpf [employer] Work Phone: Character, Urine CLEAR CLEAR-SL CLOUD [employer] Work Phone: Color, UA YELLOW STRAW-YELLOW [employer] Work Phone: Crystals, UA NONE SEEN NONE SEEN [employer] Work Phone: Epithelial Cells, UA 3-5 3-5/hpf /hpf [facility] Work Phone: Glucose, Ur Negative NEGATIVE mg/dl [employer] Work Phone: Interpretation and review of laboratory results Abnormal [employer] Work Phone: Ketones Ql (U) Negative NEGATIVE [employer] Work Phone: Leukocyte esterase Test strip Ql (U) LARGE Abnormal NEGATIVE [employer] Work Phone: MISCELLANEOUS 2 NONE SEEN [facility] Work Phone: Comment on above: Performed at [facility] [address] [place] [address] Nitrite, Urine Negative NEGATIVE [employer] Work Phone: pH, UA 7.0 [employer] Work Phone: Protein, UA Negative NEGATIVE [employer] Work Phone: RBC, UA 0-2 0-2/hpf /hpf [employer] [facility] Work Phone: Renal Epithelial, UA NONE SEEN NONE SEEN [employer] Work Phone: Specific [place], Urine 1.012 [employer] Work Phone: Urobilinogen, Urine 0.2 [employer] Work Phone: WBC, UA 25-50 0-4/hpf /hpf [employer] Work Phone: Yeast, UA NONE SEEN NONE SEEN [employer] Phone: VITAMIN B12 FOLATEon 021 Cobalamin (Vitamin B12) [Mass/Vol] 1839 pg/mL High 211-911 [facility] Comment on above: Performed By: #### C BCWD, BMP, MG, ANION, EGFR1 #### [facility] [address] [place] [address] FOLATE 14.6 ng/mL Normal 4.8-24.2 [facility] Comment on above: Performed By: #### C BCWD, BMP, MG, ANION, EGFR1 #### [facility] [address] [place] [address] Vitamin B12 & folateOrdered By: Darien Ferrara on 08-04-2020 Cobalamin (Vitamin B12) [Mass/Vol] 1839 pg/mL High 211 - 911 pg/mL [employer] Work Phone: Folate 14.6 ng/mL 4.8 - 24.2 ng/mL [employer] Phone: Comment on above: Performed at [facility] [address] [place] [address] Interpretation and review of laboratory results Abnormal [employer] Work Phone: VL DUP UPPER EXTREMITY VENOU S RIGHTon 05-13-2020 [facility] Vascular Upper Extremities Veins Procedure Patient Name DANA Date of Study 05/13/2020 LILLIANA B Date of 1940 Gender Female Age 79 year(s) Race Room Number Corporate ID [id number] # Patient Acct [id number] # MR # [id number] [employer] CELSA Mensah [facility] Interpreting Physician Reymundo Barbosa MD Referring Referring [...] !Phasic ! ! + ---+ ----+ ------+ [facility] [place] [place] Romero, Sveta Incoming Cardio Results From [facility]/ - 05/13/2020 12:29 PM [facility] Vascular Upper Extremities Veins Procedure Patient Name DANA Date of Study 05/13/2020 LILLIANA Salmeron Date of 1940 Gender Female Age 79 year(s) Race Room Number Corporate ID [id number] # Patient Acct [id number] # MR # [id number] [employer] Rodrick, RVT Karen Son T Interpreting Physician [...] ! ! + ---+ ----+ ------ + [facility], [place] CBC Auto Differentialon 02-08 Basophils (Bld) [#/Vol] 0.10 10*3/uL [facility] Basophils/100 WBC (Bld) 1 % 0 - 2 % [facility] Differential Type NOT REPORTED [place] Eosinophils (Bld) [#/Vol] 0.25 10*3/uL [facility] Eosinophils/100 WBC (Bld) 3 % 1 - 4 % [facility] Erythrocyte distribution width (RBC) [Ratio] 12.9 % 11.8 - 14.4 % [facility] Hematocrit (Bld) [Volume fraction] 42.7 % 36.3 - 47.1 % [facility] Hemoglobin (Bld) [Mass/Vol] 13.5 g/dL 11.9 - 15.1 g/dL [facility] Immature granulocytes (Bld) [#/Vol] 1 % High 0 [facility] Immature granulocytes (Bld) [#/Vol] 0.04 10*3/uL [facility] Interpretation and review of laboratory results Abnormal [place] Lymphocytes (Bld) [#/Vol] 3.21 10*3/uL [place] Lymphocytes/100 WBC (Bld) 39 % 24 - 43 % [place] MCH (RBC) [Entitic mass] 31.0 pg 25.2 - 33.5 pg [place] MCHC (RBC) [Mass/Vol] 31.6 g/dL 28.4 - 34.8 g/dL [place] MCV (RBC) [Entitic vol] 97.9 fL 82.6 - 102.9 fL [place] Monocytes (Bld) [#/Vol] 0.62 10*3/uL [place] Monocytes/100 WBC (Bld) 8 % 3 - 12 % [place] Platelet mean volume (Bld) [Entitic vol] 9.4 fL 8.1 - 13.5 fL [place] Platelets (Bld) [#/Vol] 250 10*3/uL [place] Platelets (Bld) [#/Vol] NOT REPORTED [place] RBC (Bld) [#/Vol] 4.36 10*6/uL 3.95 - 5.1 1 m/uL [place] RBC morphology finding Nom (Bld) NOT REPORTED [place] Segmented neutrophils/100 WBC (Bld) 48 % 36 - 65 % [place] Segs Absolute 4.09 [place] WBC (Bld) [#/Vol] 0.0 10*3/uL 0.0 per 10 0 WBC [place] WBC (Bld) [#/Vol] 8.3 10*3/uL [place] WBC Morphology NOT REPORTED [place] Comprehensive Metabolic Pane uriel 02-25-2020 Albumin [Mass/Vol] 3.9 g/dL 3.5 - 5.2 g/dL [place] Albumin/Globulin [Mass ratio] 1.6 {ratio} [place] ALP [Catalytic activity/Vol] 60 U/L 35 - 104 U/L [place] ALT [Catalytic activity/Vol] 7 U/L 5 - 33 U/L [place] Anion gap [Moles/Vol] 7 mmol/L Low 9 - 17 mmol/L [place] AST [Catalytic activity/Vol] 14 U/L <32 [place] Bilirubin Ql (U) 0.52 mg/dL 0.3 - 1.2 mg/dL [place] Bun/Cre Ratio 11 [place] Calcium [Mass/Vol] 9.7 mg/dL 8.6 - 10. 4 mg/dL [place] Chloride [Moles/Vol] 105 mmol/L 98 - 10 7 mmol/L [place] CO2 [Moles/Vol] 27 mmol/L 20 - 31 mmol/L [place] Creatinine [Mass/Vol] 0.7 mg/dL 0.5 - 0.9 mg/dL [place] GFR >60 >60 mL/min [place] GFR Non- >60 >60 mL/min [place] Glucose [Mass/Vol] 95 mg/dL 70 - 99 mg/dL [place] Interpretation and review of laboratory results Abnormal [place] Potassium [Moles/Vol] 5.0 mmol/L 3.7 - 5.3 mmol/L [place] Protein [Mass/Vol] 6.3 g/dL Low 6.4 - 8.3 g/dL [place] Sodium [Moles/Vol] 139 mmol/L 135 - 144 mmol/L [place] Urea nitrogen [Mass/Vol] 8 mg/dL 8 - 23 mg/dL [place] Lipid Panelon 02-25-2020 Cholesterol [Mass/Vol] 162 mg/dL <200 [place] Comment on above: Cholesterol Guidelines: <200 Desirable 200-240 Borderline >240 Undesirable Cholesterol in HDL [Mass/Vol] 60 mg/dL >40 [place] Comment on above: HDL Guidelines: <40 Undesirable 40-59 Borderline >59 Desirable Cholesterol in LDL [Mass/Vol] 88 mg/dL 0 - 130 mg/dL [place] Comment on above: LDL Guidelines: <100 Desirable 100-129 Near to/above Desirable 130-159 Borderline >159 Undesirable Direct (measured) LDL and calculated LDL are not interchangeable tests. Cholesterol in VLDL [Mass/Vol] NOT REPORTED 1 - 30 mg/dL [place] Cholesterol.total/Chol esterol in HDL [Mass ratio] 2.7 {ratio} <5 [place] Triglyceride [Mass/Vol] 68 mg/dL <150 [place] Comment on above: Triglyceride Guidelines: <150 Desirable 150-199 Borderline 200-499 High >499 Very high Based on AHA Guidelines for fasting triglyceride, January 2012. Metabolic Panelon 02-25-2020 GFR/1.73 sq M predicted among non-blacks MDRD (S/P/Bld) [Vol rate/Area] [place] Comment on above: Stage 1: Some [...] body mass. Additional eGFR calculator available at: http://www.Enflick/multiple_crcl_2012.htm CBC Auto Differentialon 10-08 Basophils (Bld) [#/Vol] 0.07 10*3/uL [place] Basophils/100 WBC (Bld) 1 % 0 - 2 % [place] Differential Type NOT REPORTED [place] Eosinophils (Bld) [#/Vol] 0.20 10*3/uL [place] Eosinophils/100 WBC (Bld) 2 % 1 - 4 % [place] Erythrocyte distribution width (RBC) [Ratio] 13.2 % 11.8 - 14.4 % [place] Hematocrit (Bld) [Volume fraction] 43.8 % 36.3 - 47.1 % [place] Hemoglobin (Bld) [Mass/Vol] 13.6 g/dL 11.9 - 15.1 g/dL [place] Immature granulocytes (Bld) [#/Vol] 1 % High 0 [place] Immature granulocytes (Bld) [#/Vol] 0.05 10*3/uL [place] Interpretation and review of laboratory results Abnormal [place] Lymphocytes (Bld) [#/Vol] 3.08 10*3/uL [place] Lymphocytes/100 WBC (Bld) 32 % 24 - 43 % [place] MCH (RBC) [Entitic mass] 30.0 pg 25.2 - 33.5 pg [place] MCHC (RBC) [Mass/Vol] 31.1 g/dL 28.4 - 34.8 g/dL [place] MCV (RBC) [Entitic vol] 96.7 fL 82.6 - 102.9 fL [place] Monocytes (Bld) [#/Vol] 0.73 10*3/uL [place] Monocytes/100 WBC (Bld) 8 % 3 - 12 % [place] Platelet mean volume (Bld) [Entitic vol] 9.8 fL 8.1 - 13.5 fL [place] Platelets (Bld) [#/Vol] 278 10*3/uL [place] Platelets (Bld) [#/Vol] NOT REPORTED [place] RBC (Bld) [#/Vol] 4.53 10*6/uL 3.95 - 5.1 1 m/uL [place] RBC morphology finding Nom (Bld) NOT REPORTED [place] Segmented neutrophils/100 WBC (Bld) 56 % 36 - 65 % [place] Segs Absolute 5.63 [place] WBC (Bld) [#/Vol] 9.8 10*3/uL [place] WBC (Bld) [#/Vol] 0.0 10*3/uL 0.0 per 10 0 WBC [place] WBC Morphology NOT REPORTED [place] Comprehensive Metabolic Pane uriel 10-18-2019 Albumin [Mass/Vol] 4 g/dL 3.5 - 5.2 g/dL [place] Albumin/Globulin [Mass ratio] 1.4 {ratio} [place] ALP [Catalytic activity/Vol] 67 U/L 35 - 104 U/L [place] ALT [Catalytic activity/Vol] 13 U/L 5 - 33 U/L [place] Anion gap [Moles/Vol] 8 mmol/L Low 9 - 17 mmol/L [place] AST [Catalytic activity/Vol] 18 U/L <32 [place] Bilirubin Ql (U) 0.50 mg/dL 0.3 - 1.2 mg/dL [place] Bun/Cre Ratio 21 High [place] Calcium [Mass/Vol] 9.5 mg/dL 8.6 - 10. 4 mg/dL [place] Chloride [Moles/Vol] 107 mmol/L 98 - 10 7 mmol/L [place] CO2 [Moles/Vol] 28 mmol/L 20 - 31 mmol/L [place] Creatinine [Mass/Vol] 0.8 mg/dL 0.5 - 0.9 mg/dL [place] GFR >60 >60 mL/min [place] GFR Non- >60 >60 mL/min [place] Glucose [Mass/Vol] 110 mg/dL High 70 - 99 mg/dL [place] Interpretation and review of laboratory results Abnormal [place] Potassium [Moles/Vol] 5.6 mmol/L High 3.7 - 5.3 mmol/L [place] Protein [Mass/Vol] 6.9 g/dL 6.4 - 8.3 g/dL [place] Sodium [Moles/Vol] 143 mmol/L 135 - 144 mmol/L [place] Urea nitrogen [Mass/Vol] 17 mg/dL 8 - 23 mg/dL [place] Lipid Panelon 10-18-2019 Cholesterol [Mass/Vol] 149 mg/dL <200 [place] Comment on above: Cholesterol Guidelines: <200 Desirable 200-240 Borderline >240 Undesirable Cholesterol in HDL [Mass/Vol] 59 mg/dL >40 [place] Comment on above: HDL Guidelines: <40 Undesirable 40-59 Borderline >59 Desirable Cholesterol in LDL [Mass/Vol] 77 mg/dL 0 - 130 mg/dL [place] Comment on above: LDL Guidelines: <100 Desirable 100-129 Near to/above Desirable 130-159 Borderline >159 Undesirable Direct (measured) LDL and calculated LDL are not interchangeable tests. Cholesterol in VLDL [Mass/Vol] NOT REPORTED 1 - 30 mg/dL [place] Cholesterol.total/Chol esterol in HDL [Mass ratio] 2.5 {ratio} <5 [place] Triglyceride [Mass/Vol] 63 mg/dL <150 [place] Comment on above: Triglyceride Guidelines: <150 Desirable 150-199 Borderline 200-499 High >499 Very high Based on AHA Guidelines for fasting triglyceride, January 2012. Metabolic Panelon 10-18-2019 GFR/1.73 sq M predicted among non-blacks MDRD (S/P/Bld) [Vol rate/Area] [place] Comment on above: Stage 1: Some [...] body mass. Additional eGFR calculator available at: http://www.ChallengePost.[employer]/multiple_crcl_2012.htm CBC Auto DifferentialOrdered By: Aye Nevarez on 04-22-2019 [employer] # 0.25 [facility] Work Phone: Absolute Immature Granulocyte 0.04 [facility] Work Phone: Absolute Lymph # 3.17 [facility] Work Phone: [facility] [place] # 0.67 [employer] [facility] Work Phone: Basophils (Bld) [#/Vol] 0.10 10*3/uL [employer] Phone: Basophils/100 WBC (Bld) 1 % 0 - 2 % [employer] Phone: Differential Type NOT REPORTED [employer] Phone: Eosinophils/100 WBC (Bld) 3 % 1 - 4 % [employer] Phone: Erythrocyte distribution width (RBC) [Ratio] 12.6 % 11.8 - 14.4 % [employer] Phone: Hematocrit (Bld) [Volume fraction] 43.9 % 36.3 - 47.1 % [employer] Phone: Hemoglobin (Bld) [Mass/Vol] 13.7 g/dL 11.9 - 15.1 g/dL [employer] Phone: Immature granulocytes/100 WBC (Bld) 1 % High 0 [employer] Phone: Interpretation and review of laboratory results Abnormal [employer] Phone: Lymphocytes/100 WBC (Bld) 36 % 24 - 43 % [employer] Phone: MCH (RBC) [Entitic mass] 30.0 pg 25.2 - 33.5 pg [employer] Phone: MCHC (RBC) [Mass/Vol] 31.2 g/dL 28.4 - 34.8 g/dL [employer] Phone: MCV (RBC) [Entitic vol] 96.3 fL 82.6 - 102.9 fL [employer] Phone: Monocytes/100 WBC (Bld) 8 % 3 - 12 % [employer] Phone: NRBC Automated 0.0 0.0 per 100 WBC [employer] Phone: Platelet Estimate NOT REPORTED [employer] Phone: Platelet mean volume (Bld) [Entitic vol] 9.1 fL 8.1 - 13.5 fL [employer] Phone: Platelets (Bld) [#/Vol] 308 10*3/uL [employer] Phone: RBC (Bld) [#/Vol] 4.56 10*6/uL 3.95 - 5.1 1 m/uL [employer] Phone: RBC morphology finding Nom (Bld) NOT REPORTED [employer] Phone: Segmented neutrophils/100 WBC (Bld) 51 % 36 - 65 % [employer] Phone: Segs Absolute 4.47 [employer] Work Phone: WBC (Bld) [#/Vol] 8.7 10*3/uL [employer] Phone: WBC Morphology NOT REPORTED [employer] [facility] Work Phone: Comprehensive Metabolic Pane lOrdered By: Aye Nevarez on 04-22-2019 Albumin [Mass/Vol] 4 g/dL 3.5 - 5.2 g/dL [employer] Phone: Albumin/Globulin [Mass ratio] 1.3 {ratio} [employer] Phone: ALP [Catalytic activity/Vol] 71 U/L 35 - 104 U/L [employer] Phone: ALT [Catalytic activity/Vol] 11 U/L 5 - 33 U/L [employer] Phone: Anion gap [Moles/Vol] 10 mmol/L 9 - 17 mmol/L [employer] Phone: AST [Catalytic activity/Vol] 16 U/L <32 [employer] Phone: Bilirubin [Mass/Vol] 0.43 mg/dL 0.3 - 1 .2 mg/dL [employer] Phone: Bun/Cre Ratio 19 [employer] Work Phone: Calcium [Mass/Vol] 9.7 mg/dL 8.6 - 10. 4 mg/dL [employer] Phone: Chloride [Moles/Vol] 102 mmol/L 98 - 10 7 mmol/L [employer] Phone: CO2 [Moles/Vol] 26 mmol/L 20 - 31 mmol/L [employer] Phone: Creatinine [Mass/Vol] 0.69 mg/dL 0.5 - 0.9 mg/dL [employer] Phone: GFR >60 >60 mL/min [employer] Phone: GFR Comment [employer] Phone: Comment on above: Average GFR for 70 o r more years old: 75 mL/min/1.73sq m Chronic Kidney Disease: <60 mL/min/1.73sq m Kidney failure: <15 mL/min/1.73sq m eGFR calculated using average adult body mass. Additional eGFR calculator available at: http://www.Enflick/multiple_crcl_2012.htm GFR Non- >60 >60 mL/min [employer] Phone: GFR Staging [employer] Phone: Comment on above: Stage 1: Some kidney damage normal GFR Stage 2: Mild kidney damage GFR 60-89 Stage 3: Moderate kidney damage GFR 30-59 Stage 4: Severe kidney damage GFR 15-29 Stage 5: Severe kidney damage GFR <15 ESRD - chronic treatment by dialysis or transplant Glucose [Mass/Vol] 104 mg/dL High 70 - 99 mg/dL [employer] Phone: Interpretation and review of laboratory results Abnormal [employer] Phone: Potassium [Moles/Vol] 4.7 mmol/L 3.7 - 5.3 mmol/L [employer] Phone: Protein [Mass/Vol] 7.1 g/dL 6.4 - 8.3 g/dL [employer] Phone: Sodium [Moles/Vol] 138 mmol/L 135 - 144 mmol/L [employer] Phone: Urea nitrogen [Mass/Vol] 13 mg/dL 8 - 23 mg/dL [employer] Phone: Lipid PanelOrdered By: Aye Nevarez on 04-22-2019 Cholesterol [Mass/Vol] 155 mg/dL <200 [employer] Phone: Comment on above: Cholesterol Guidelines: <200 Desirable 200-240 Borderline >240 Undesirable Cholesterol in HDL [Mass/Vol] 52 mg/dL >40 [employer] Phone: Comment on above: HDL Guidelines: <40 Undesirable 40-59 Borderline >59 Desirable Cholesterol in LDL [Mass/Vol] 80 mg/dL 0 - 130 mg/dL [employer] Phone: Comment on above: LDL Guidelines: <100 Desirable 100-129 Near to/above Desirable 130-159 Borderline >159 Undesirable Direct (measured) LDL and calculated LDL are not interchangeable tests. Cholesterol.total/Chol esterol in HDL [Mass ratio] 3 {ratio} <5 [employer] Phone: Triglyceride [Mass/Vol] 114 mg/dL <150 [employer] Phone: Comment on above: Triglyceride Guidelines: <150 Desirable 150-199 Borderline 200-499 High >499 Very high Based on AHA Guidelines for fasting triglyceride, January 2012. VLDL NOT REPORTED 1 - 30 mg/dL [employer] Phone: MRI BRAIN WO CONTRASTon 11-0 Chronic microvascula r disease without acute intracranial abnormality. Scattered foci of blooming artifact on susceptibility weighted imaging that is nonspecific and may relate to hypertensive microangiopathy versus amyloid angiopathy. [place] EXAMINATION: MRI OF THE BRAIN WITHOUT [...] The soft tissues demonstrate no acute abnormality. [place] Romero, Mhpn Incoming Radiant Results From [employer] - 02/12/2019 2:18 PM EST EXAMINATION: MRI [...] relate to hypertensive microangiopathy versus amyloid angiopathy. [place] TSH without Reflexon 019 TSH Qn 4.31 m[IU]/L [place] Comprehensive Metabolic Pane uriel 12-26-2018 Albumin [Mass/Vol] 3.8 g/dL 3.5 - 5.2 g/dL [place] Albumin/Globulin [Mass ratio] 1.3 {ratio} [place] ALP [Catalytic activity/Vol] 72 U/L 35 - 104 U/L [place] ALT [Catalytic activity/Vol] 9 U/L 5 - 33 U/L [place] Anion gap [Moles/Vol] 11 mmol/L 9 - 17 mmol/L [place] AST [Catalytic activity/Vol] 14 U/L <32 [place] Bilirubin Ql (U) 0.43 mg/dL 0.3 - 1.2 mg/dL [place] Bun/Cre Ratio 14 [place] Calcium [Mass/Vol] 9.5 mg/dL 8.6 - 10. 4 mg/dL [place] Chloride [Moles/Vol] 102 mmol/L 98 - 10 7 mmol/L [place] CO2 [Moles/Vol] 24 mmol/L 20 - 31 mmol/L [place] Creatinine [Mass/Vol] 0.74 mg/dL 0.5 - 0.9 mg/dL [place] GFR >60 >60 mL/min [place] GFR Non- >60 >60 mL/min [place] Glucose [Mass/Vol] 110 mg/dL High 70 - 99 mg/dL [place] Interpretation and review of laboratory results Abnormal [place] Potassium [Moles/Vol] 4.8 mmol/L 3.7 - 5.3 mmol/L [place] Protein [Mass/Vol] 6.8 g/dL 6.4 - 8.3 g/dL [place] Sodium [Moles/Vol] 137 mmol/L 135 - 144 mmol/L [place] Urea nitrogen [Mass/Vol] 10 mg/dL 8 - 23 mg/dL [place] Lipid Panelon 12-26-2018 Cholesterol [Mass/Vol] 175 mg/dL <200 [place] Comment on above: Cholesterol Guidelines: <200 Desirable 200-240 Borderline >240 Undesirable Cholesterol in HDL [Mass/Vol] 51 mg/dL >40 [place] Comment on above: HDL Guidelines: <40 Undesirable 40-59 Borderline >59 Desirable Cholesterol in LDL [Mass/Vol] 106 mg/dL 0 - 130 mg/dL [place] Comment on above: LDL Guidelines: <100 Desirable 100-129 Near to/above Desirable 130-159 Borderline >159 Undesirable Direct (measured) LDL and calculated LDL are not interchangeable tests. Cholesterol in VLDL [Mass/Vol] NOT REPORTED 1 - 30 mg/dL [place] Cholesterol.total/Chol esterol in HDL [Mass ratio] 3.4 {ratio} <5 [place] Triglyceride [Mass/Vol] 90 mg/dL <150 [place] Comment on above: Triglyceride Guidelines: <150 Desirable 150-199 Borderline 200-499 High >499 Very high Based on AHA Guidelines for fasting triglyceride, January 2012. Metabolic Panelon 12-26-2018 GFR/1.73 sq M predicted among non-blacks MDRD (S/P/Bld) [Vol rate/Area] [place] Comment on above: Stage 1: Some [...] body mass. Additional eGFR calculator available at: http://www.ChallengePost.[employer]/multiple_crcl_2012.htm Vital Signs Date Time Vital Sign Value Performing Clinician Gasper hess 10-20-2020 18:30-0400 Body temperature 98.6 [degF] Radu Worrell MD Work Phone: [employer] Work Phone: 10-20-2020 18:30-0400 Diastolic blood pressure 53 mm[Hg] Radu Worrell MD Work Phone: [employer] Work Phone: 10-20-2020 18:30-0400 Heart rate 77 /min Radu Worrell MD Work Phone: [employer] Work Phone: 10-20-2020 18:30-0400 Respiratory rate 15 /min Radu Worrell MD Work Phone: [employer] Work Phone: 10-20-2020 18:30-0400 SaO2% (BldA) [Mass fraction] 96 % Radu Worrell MD Work Phone: [employer] Work Phone: 10-20-2020 18:30-0400 Systolic blood pressure 120 mm[Hg] Radu Worrell MD Work Phone: [employer] Work Phone: 10-20-2020 08:43-0400 Body height 149.9 cm Radu Worrell MD Work Phone: [employer] Work Phone: 10-20-2020 08:30-0400 Body mass index (BMI) [Ratio] 32.03 kg/m2 Radu Worrell MD Work Phone: [employer] Work Phone: 10-20-2020 08:30-0400 Body weight 71.94 kg Radu Worrell MD Work Phone: [employer] Work Phone: 08-05-2020 11:44-0400 Body temperature 98.8 [degF] Jungsik Kin DO Work Phone: [employer] Work Phone: 08-05-2020 11:44-0400 Diastolic blood pressure 66 mm[Hg] Jungsik Kin DO Work Phone: [employer] Work Phone: 08-05-2020 11:44-0400 Heart rate 80 /min Studiekringsik Kin DO Work Phone: [employer] Work Phone: 08-05-2020 11:44-0400 Respiratory rate 18 /min Studiekringsik Kin DO Work Phone: [employer] Work Phone: 08-05-2020 11:44-0400 SaO2% (BldA) [Mass fraction] 98 % Studiekringsik Kin DO Work Phone: [employer] Phone: 08-05-2020 11:44-0400 Systolic blood pressure 146 mm[Hg] Studiekringsik Kin DO Work Phone: [employer] Phone: 08-04-2020 00:52-0400 Body height 149.9 cm Studiekringsik Kin DO Work Phone: [employer] Phone: 08-04-2020 00:52-0400 Body mass index (BMI) [Ratio] 32.74 kg/m2 Studiekringsik Kin DO Work Phone: [employer] Phone: 08-04-2020 00:52-0400 Body weight 73.53 kg Studiekringsik Kin DO Work Phone: [employer] Phone: Encounters Encounter Date Encounter Type Care Provider Facility Start: 05-09-2023 End: 05-10-2023 ambulatory AYE ROQUE [facility] Start: 07-18-2022 End: 07-19-2022 ambulatory KEVIN STEINER Facility:[facility] Start: 07-08-2022 End: 07-08-2022 ambulatory ANN GEOFFREY ZHOU . Facility:[facility] Start: 09-23-2021 End: 09-24-2021 [facility] Start: 09-23-2021 End: 09-23-2021 Subsequent hospital visit by physician Aye Nevarez DO Work Phone: [facility] Start: 04-28-2021 End: 04-29-2021 [facility] Start: 10-19-2020 End: 10-21-2020 Evaluation and management of inpatient [facility]YE [facility] Start: 10-19-2020 End: 10-20-2020 Evaluation and management of inpatient Radu Worrell MD Work Phone: [facility] Comment on above: Generalized weakness (Primary Dx); Mild dehydration; Acute cystitis without hematuria Start: 08-04-2020 End: 08-05-2020 ambulatory [facility] Start: 08-04-2020 End: 08-05-2020 Subsequent hospital visit by physician Damián Sanderson DO Work Phone: [facility] [employer] 4A Start: 05-13-2020 End: 05-15-2020 Subsequent hospital visit by physician Latha Vascular Imaging Room [facility] Vascular Lab Comment on above: Pain of right upper arm; Swollen vein Start: 02-25-2020 End: 02-25-2020 Subsequent hospital visit by physician Aye Nevarez [facility] Laboratory Start: 10-18-2019 End: 10-18-2019 Subsequent hospital visit by physician Aye Nevarez [facility] Laboratory Start: 04-22-2019 End: 04-22-2019 Subsequent hospital visit by physician Aye Nevarez DO Work Phone: [facility] Laboratory Start: 02-12-2019 End: 02-14-2019 Subsequent hospital visit by physician Azul Mri Scanner [facility] MRI Comment on above: Lewy body dementia [...] Start: 02-25-2020 Lipid panel Aye William Maxime jeronimo Work Phone: Start: 10-18-2019 Blood count complete [...] Author Start: 04-28-2022 Lipid panel Lipids [facility] [employer] Start: 12-09-2021 Influenza vaccination Flu vacc ine (Season Ended) [facility] [employer] Start: 10-20-2021 Creatinine measurement Creatinine mo [facility] [employer] Work Phone: Start: 10-20-2021 Potassium monitoring Potassium monit [facility] Work Phone: Start: 08-05-2021 Creatinine measurement Creatinine mo [facility] Work Phone: Start: 08-05-2021 Potassium monitoring Potassium monit [facility] Work Phone: Start: 02-24-2021 Creatinine measurement Creatinine mo [place] Start: 02-24-2021 Lipid panel Lipid screen [place], [place] Start: 02-24-2021 Potassium monitoring Potassium monit [place], [place] Start: 12-09-2020 Influenza vaccination [facility] [employer] Work Phone: Start: 10-17-2020 Creatinine measurement Creatinine mo [place] Start: 10-17-2020 Lipid panel Lipid screen [place], [place] Start: 10-17-2020 Potassium monitoring Potassium monit [place] Start: 04-22-2020 Creatinine measurement Creatinine mo nitoring [place], [place] Start: 04-22-2020 Lipid panel Lipid screen [place] Start: 04-22-2020 Potassium monitoring Potassium monit [place] Start: 12-27-2019 Creatinine monitoring Creatinine mon [place] Start: 12-27-2019 Lipid screen Lipid screen [place] Start: 12-27-2019 Potassium monitoring Potassium monit [place] Start: 12-10-2019 Influenza vaccination Flu vaccine (# 1) [place] Start: 07-18-2019 Creatinine monitoring Creatinine mon [place] Start: 07-18-2019 Potassium monitoring Potassium monit [place] Start: 12-09-2018 Influenza vaccination Flu vaccine (# 1) [place] Start: 09-30-2018 Annual Wellness Visi t (AWV) Annual Wellness Visit (AWV) [place] Start: 12-30-2004 DEXA (modify frequen cy per FRAX score) DEXA (modify frequency per FRAX score) [place] Start: 12-30-2004 Pneumococcal 65+ yea rs Vaccine (1 - PCV) Pneumococcal 65+ years Vaccine (1 - PCV) [facility] Start: 12-30-2004 Pneumococcal 65+ yea rs Vaccine (1 of 1 - PPSV23) Pneumococcal 65+ years Vaccine (1 of 1 - PPSV23) [place] Start: 12-30-2004 Pneumococcal 65+ yea rs Vaccine (1 of 2 - PCV13) Pneumococcal 65+ years Vaccine (1 of 2 - PCV13) [place] Start: 12-30-1994 Screening for osteoporosis DEXA (modify frequency per FRAX score) [facility] Start: 12-30-1989 Shingles Vaccine (1 of 2) Shingles Vaccine (1 of 2) [facility] Start: 12-30-1958 DTaP/Tdap/Td vaccine (1 - Tdap) DTaP/Tdap/Td vaccine (1 - Tdap) [facility] Start: 1955 COVID-19 Vaccine (1 of 2) COVID-19 Vaccine (1 of 2) [facility] [place] Start: 1955 COVID-19 Vaccine (1) COVID-19 Vaccin e (1) [employer] Phone: Start: 1951 COVID-19 Vaccine (1) COVID-19 Vaccin e (1) [employer] Phone: Start: 1951 Depression Screen Depression Screen [facility] [employer] Start: 12-30-1950 DTaP/Tdap/Td vaccine (1 - Tdap) DTaP/Tdap/Td vaccine (1 - Tdap) [employer] Phone: Start: 12-30-1944 COVID-19 Vaccine (1) COVID-19 Vaccin e (1) [facility] [employer] Start: 1940 Annual Wellness Visi t (AWV) Annual Wellness Visit (AWV) [facility] [employer] End: 08-06-2020 Basic metabolic 2000 panel - Serum or Plasma Basic Metabolic Panel Lab Routine Tomorrow AM for 1 Occurrences starting 08/06/2020 until 08/06/2020 [employer] Phone: Comment on above: Tomorrow AM for 1 Oc currences starting 08/06/2020 until 08/06/2020 End: 08-06-2020 CBC panel - Blood by Automated count CBC Lab Routine Tomorrow AM for 1 Occurrences starting 08/06/2020 until 08/06/2020 [employer] Phone: Comment on above: Tomorrow AM for 1 Oc currences starting 08/06/2020 until 08/06/2020 [facility] Phone: End: 02-12-2019 Lyme Ab Lyme Ab Lab Routine Once for 1 Occurrences starting 02/12/2019 until 02/12/2019 [place] Comment on above: Once for 1 Occurrenc es starting 02/12/2019 until 02/12/2019 Lyme Ab Lyme Ab Lab Rout ine 02/12/2019 12:32 PM EST [facility]xygen therapy [[facility] Data Set] [employer] Work Phone: Comment on above: Daily until disconti nued starting 08/04/2020 Daily until disconti nued starting 10/19/2020 Vitamin B12 & Folate Vitamin B12 & Folate Lab Routine 02/12/2019 12:32 PM EST [facility] Payers Date Payer Category Payer Medicare MEDICARE MEDICAR E PART A AND B xxxxxxxxxxx 2015-Present [phone] [id number] [place] [id number] xxxxxxxxxxx [id number] 2015 Medicare MEDICARE MEDICAR E PART A AND B [id number] 2015-Present [phone] [address] [place] [address] [id number] 2015 Medicare MEDICARE MEDICAR E PART A AND B [id number] 2015-Present [phone] [address] [place] [address] [id number] 1959 Medicare [id number] 1940 Unknown [id number] 1940 Unknown [id number] 1940 Unknown [id number] 1940 Unknown [id number] 1940 Unknown [id number] 1940 Unknown [id number] 1940 Unknown [id number] 6 Social History Date Type Detail Facility Start: 04-14-2015 End: 12-19-2017 Tobacco smoking status NHIS Former smoker [place], [place] History of tobacco use Cigarette Smoker [place] Start: 04-14-2015 End: 12-19-2017 Cigarettes smoked current (pack per day) - Reported [place] Start: 12-19-2017 Alcohol intake No [place] Start: 11-25-2015 Tobacco Comment QUIT 1998 [place], [place] Start: 01-02-2017 Alcohol Comment very occasional [place], [place] Start: 1940 Sex Assigned At Not on file [place], [place] Start: 04-14-2015 End: 12-19-2017 Tobacco use and exposure Never used [place] Start: 12-19-2017 End: 10-19-2020 Alcohol intake Current non-drinker of alcohol (finding) [facility] Work Phone: Exposure to SARS-CoV -2 (event) Not sure [facility] History of Present illness Narrative 10-20-2020 Dahiana Kilgore RN - 10/20/2020 10:06 PM Dahiana Linn RN - 10/20/2020 9:00 PM Dahiana Linn RN - 10/20/2020 8:40 PM Yaquelin Bennett RN - 10/20/2020 8:35 PM EDT Note Date & Type Note Facility 10-20-2020 History of Present illness Narrative Patient's family arrived and policy writer bagged up her personal items. AMA paperwork was signed by patient's POA. Cnc Specialist took patient down via wheelchair. Cnc Specialist educated patient and family about home safety. Patient is refusing to take all medications. Cnc Specialist checked the locked cupboard for patient's personal items and gave her the bag of her clothes. Patient did not arrive in shoes. Cnc Specialist also called railroad car repair supervisor to update her. Patient is refusing to sign AMA paperwork. Cnc Specialist removed patient left AC IV at this time. Cnc Specialist called and spoke with Miracle, patient's POA. Miracle states she will pick her up. Cnc Specialist passed phone to patient so she could speak with her daughter. Patient insisted that she would start walking home even after speaking with her daughter. Security remains in the room with patient. Dr. Cerda returned the call. Cnc Specialist updated him on the patient and the situation. Dr. Cerda states that can sign out AMA and to make sure she gets a ride home. Cnc Specialist will call patient's POA. Security at bedside with patient at this time. Patient has agreed to sit in chair but is still persistent on walking home at this time if daughter does not come and machine operator hop picker patient. Security to remain at bedside. Cnc Specialist has been in room with patient while [...] sit down on the bed or chair. Cnc Specialist standing next to patient to ensure patient [...] in room phone multiple times of which policy writer handed patient the phone. Patient accused daughter of lying to her when daughter attempted to explain that patient was in the hospital and why she was brought in. Patient hung up on daughter multiple times even after daughter calling back multiple times. Cnc Specialist continued to request for patient to sit down for patient's safety of which patient got verbally aggressive with policy writer. Cnc Specialist to continue to be in room with patient til security arrives. Cnc Specialist called security to sit with patient. Patient is verbally aggressive, swearing at staff. She states that she will walk home with or without her shoes while trying to shove past nursing staff. Patient is walking around the room and searching for her shoes and personal items. Patient is agitated and removed her IV. Cnc Specialist was alerted when her bed alarm went off. Cnc Specialist and second nurse cleaned her up and got her a new gown. Patient was confused and would not believe that she was in the hospital. Cnc Specialist will call Dr. Cerda for an update and orders. Patient got up from the bed without using her call light. Cnc Specialist responded to the bed alarm. When asked what she was doing, patient responded I'm walking out of here. Cnc Specialist reminded patient that she was in the hospital and would not be able to leave during the night. Patient complied with this and got back in bed. Bed alarm was reset and patient was educated on using the call light again. Will continue to monitor and assess. Pt. Offered assistance with bathing, pt. Declines. Physical Therapy Facility/Department: [facility] MED SURG Daily Treatment Note NAME: Lilliana Patel : 1940 Date of Service: 10/20/2020 Discharge Recommendations: Continue to assess pending progress, Subacute/Long Term Facility, Home with Home health PT Assessment [...] will perform transfers and bed mobility with [place] Short term goal 3: Patient will tolerate [...] In 1120 Time Out 1201 Minutes 41 [facility] Met with Patient this a.m. and spoke with daughter, via telephone conversation, re: Patient discharge plans. Patient is an 79 year old , white female, admitted with a diagnosis of Inability to Walk. Patient has a secondary diagnosis of dementia noted. 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 [facility] OK with daughter as well. Patient lives alone in [place]. She uses a walker, cane, wheelchair, shower [...] assistance with this expense. Referral made to [facility] this a.m. Telephone voicemail message left for their medical billing coordinator as well. Patient remains a 'Full Code' status and does not have medical directives currently on file. No further discharge planning needs are identified by Patient or her daughter at this point. SEWING MACHINE ADJUSTER to assist with discharge placement as appropriate [...] loss Fluid Accumulation: 1 - Mild Extremities School Age Program Teacher Strength: Not Performed Estimated Daily Nutrient Needs: Energy (kcal): 8957-2958 (15-18); Weight Used for Energy Requirements: Current Protein (g): 54-63 (1.2-1.4); Weight Used for Protein Requirements: [place] Fluid (ml/day): 1300+; Method Used for Fluid [...] lb 1.6 oz (73.5 kg) (08/04 encounter) [place] Body Weight: 95 lbs; % [place] Body Weight 166.9 % BMI: 32 BMI [...] No discharge needs at this time Contact: [id number] Images from the original note were not included. [facility] Herbal Suspension To avoid potential drug interactions with herbal and nutritional supplements, it is the policy of [facility] to suspend all orders for these products at the time of admission. Per hospital policy the following herbal/nutritional supplements were suspended during the hospital stay: Fish oil Thank you, Melina Santos [facility], 10/20/2020, 7:26 AM Cnc Specialist to bedside, pt activated bed alarm. Upon [...] everyone is on board to send to half-way facility except one of the other daughter in laws. Stated she is in denial. They would like to at least see rehab options. Navigator mostly completed. Medications list unable to completed due to patient unaware of medications. Daughter in law stated she would be back in the am. Will need completed. Bed alarm on. documented in this encounter [employer] Phone: History of Present illness Narrative 08-05-2020 Dnaiela Duggan OT - 08/05/2020 3:23 PM Jose Rai - 08/05/2020 3:20 PM Darlyn Copeland MD - 08/05/2020 1:[address], LD - 08/05/2020 10:43 AM EDT Note Date & Type Note Facility 08-05-2020 History of Present illness Narrative [facility] OCCUPATIONAL THERAPY MISSED TREATMENT NOTE STRJony GATICA 4A 019-A Date: 08/05/2020 Patient Name: Lilliana Patel CSN: [id number] : 1940 (79 y.o.) Gender: female REASON FOR MISSED TREATMENT: Upon 1st attempt, pt was sound asleep as she was given haldol and ativan early this morning, upon 2nd attempt, pt became very agitated refusing participation in OT. Will check back later as time allows. [facility] INPATIENT PHYSICAL THERAPY DAILY NOTE SUHAIL Ramirez - 4A-019-A Time In: 1451 Time Out: 1515 Timed Code Treatment Minutes: 24 Minutes Minutes: 24 Date: 08/05/2020 Patient Name: Lilliana Patel, Gender: female : 1940 (79 y.o.) Referring Practitioner: Jack Mensah MD Diagnosis: AMS (altered mental status) Additional Pertinent Hx: Per H&P 79-year-old female patient who is a direct admission from [facility] ED where she presented with acute confusion [...] Ambulation Assistance: Independent Transfer Assistance: Independent Active Personal Banking Assistant: No Additional Comments: pt mod I prior [...] mod I for safe enter/exit of home halfway goals Time Frame for halfway goals : NA due to short ELOS Following session, patient left in safe position with all fall risk precautions in place. Images from the original note were not included. Hospitalist Progress Note Patient: Lilliana Patel Unit/Bed:[facility]19/019-A Date of : 1940 Acct: [id number] PCP: Aye Nevarez DO Date of Admission: [...] patient who is a direct admission from [facility] ED where she presented with acute confusion [...] questions) Estimated Daily Nutrient Needs: Energy (kcal): 3905-2215 kcals (15-18 kcals/kg/day); Weight Used for Energy Requirements: Current(74 kg 08/04/20) Protein (g): 54-90 grams (1.2-2 grams/kg IBW/day); Weight Used for Protein Requirements: [place](45 kg (adjusted IBW)) Nutrition Related Findings: Pt [...] unable to state. Per EMR: 08/29/18: 225#) [place] Body Weight: 95 lbs; BMI: 32.7 Adjusted [...] wants us to leave her alone. 255- [place] security left unit after patient safely back into bed. This nurse attempted to place new IV catheter as the previous on had been pulled. She attempted to swing at staff still remaining in the room. Patient received medication to help calm her down. Family called with no answer. [facility] INPATIENT PHYSICAL THERAPY EVALUATION [facility] 4A - 4A-19/019-A Time In: 1424 Time Out: 1449 Timed Code Treatment Minutes: 15 Minutes Minutes: 25 Date: 08/04/2020 Patient Name: Lilliana Patel, Gender: female : 1940 (79 y.o.) Referring Practitioner: Jack Mensah MD Diagnosis: AMS (altered mental status) Additional Pertinent Hx: Per H&P 79-year-old female patient who is a direct admission from [facility] ED where she presented with acute confusion [...] Ambulation Assistance: Independent Transfer Assistance: Independent Active Personal Banking Assistant: No Additional Comments: pt mod I prior [...] Measures: Completed Dynamic Gait Total Score: 15 AM-[facility] Inpatient Mobility Raw Score : 18 AM-[facility] Inpatient T-Scale Score : 43.63 ASSESSMENT: Activity [...] mod I for safe enter/exit of home halfway goals Time Frame for halfway goals : NA due to short ELOS Following session, patient left in safe position with all fall risk precautions in place. Twan Escobedo PT, DPT [id number] Pt's daughter, Margaret called for a pt update and plan of care. HIPPA code provided. All concerns and questions were addressed. This RN contacted Dr. Mensah with the hospitalist team via [employer] serve message about pt has requested to go home. This RN have tried to explain to her that she needs to have the MRI done and needs to see Dr. Verdugo. Pt has become agreeable for now but she has informed this RN she does not want to be sent to a care home. Patient admitted to Room 19 via direct [...] declines family notification. documented in this encounter [employer] Phone: Clinical Note 08-04-2020 Note Date & [...] by: Gracie Kruse MD 08/04/20 Final result [facility] Clinical Note 08-04-2020 Note Date & Type [...] The brainstem and pituitary gland are normal. [employer] Phone: Evaluation note Note Date & Type Note Facility Evaluation note Diagnosis Seizure disorder (HCC)- Primary Unspecified epilepsy without mention of intractable epilepsy AMS (altered mental status) Essential hypertension Unspecified essential hypertension Bilateral carotid bruits TSH elevation Other abnormal blood chemistry documented in this encounter [employer] Phone: Evaluation note Note Date & Type Note Facility Evaluation note Diagnosis Inability to walk- Primary Difficulty in walking Generalized weakness Other malaise and fatigue Mild dehydration Dehydration Acute cystitis without hematuria Acute cystitis Essential hypertension Unspecified essential hypertension Dehydration documented in this encounter [employer] Phone: Hospital Discharge instructions Attachments Note Date & Type Note Facility Hospital Discharge instructions The following attachments cannot be sent through Care Everywhere.Dementia: General Info (Argent[place])documented in this encounter [employer] Phone: Reason for Referral Status Reason Specialty Diagnoses / Procedures Referre d By Contact Referred To Contact [facility] Diagnoses Lewy body dementia without behavioral disturbance (HCC) Procedures MRI BRAIN WO CONTRAST Shubham Deshpande [address] [place] [address] Status Reason Specialty Diagnoses / Procedures Referred By Contact Referred To Contact Closed Vascular Lab Diagnoses Pain of right upper arm Swollen vein Procedures VL DUP UPPER EXTREMITY VENOUS RIGHT Aye Nevarez, DO [address] [place] [address] [facility] Vascular Lab [address] [place] [address] Assessments Diagnosis Lewy body dementia without behavioral disturbance (HCC) Dementia with Lewy bodies Diagnosis Pain of right upper arm Pain in limb Swollen vein Advance Directives No Advanced Directives Records FoundDocuments on File Type Date Recorded Patient Piece Work Inspector Expl anation Advance Directives and Living Will Power of Therapist Phys Latest Code Status on File Code Status Date Activated Date Inactivated Comments Full Code 12/02/2015 1:49 PM 12/02/2015 5:12 PM Documents on File Type Date Recorded Patient Piece Work Inspector Expl anation Advance Directives and Living Will Power of Therapist Phys Latest Code Status on File Code Status Date Activated Date Inactivated Comments Full Code 12/02/2015 1:49 PM 12/02/2015 5:12 PM Documents on File Type Date Recorded Patient Piece Work Inspector Expl anation ACP-Advance Directive ACP-Power of Therapist Phys Documents on File Type Date Recorded Patient Piece Work Inspector Expl anation ACP-Advance Directive ACP-Power of Therapist Phys Latest Code Status on File Code Status Date Activated Date Inactivated Comments Full Code 08/04/2020 3:05 AM Full Code 12/02/2015 1:49 PM 12/02/2015 5:12 PM Latest Code Status on File Code Status Date Activated Date Inactivated Comments Full Code 10/19/2020 10:31 PM Full Code 08/04/2020 3:05 AM 08/05/2020 7:26 PM Healthcare Agents on File Name Relationship Healthcare Agent [facility] p Communication Margaret Salcedo Child Primary Decision [...] BRAIN WO CTRST BryanShubham francisco [address] [place] [address] [facility] Mri [address] [place] [address] Status Reason Specialty Diagnoses / Procedures Referred By Contact Referred To Contact Closed Vascular Lab Diagnoses Pain of right upper arm Swollen vein Procedures VL DUP UPPER EXTREMITY VENOUS RIGHT Aye Nevarez DO [address] [place] [address] [facility] Vascular Lab [address] [place] [address] Reason Comments Status Reason Specialty Diagnoses / Procedures Referre d By Contact Referred To Contact Diagnoses AMS (altered mental status) Altered Mental status Darien Ferrara MD [address] [place] [address] [facility] Reason Comments Fatigue patient started feel ing weak a couple days ago Status Reason Specialty Diagnoses / Procedures Referre d By Contact Referred To Contact Diagnoses Inability to walk Casandra Cerda MD [address] [facility] [place] [address] [facility] Ordered Prescriptions (unrec ognized section and content) Prescription Sig Dispensed Refills Start Date End Da te QUEtiapine (SEROQUEL) 25 MG tablet Take 1 tablet by mouth nightly 60 tablet 3 08/05/2020 INFORMATION SOURCE (unrecogn ized section and content) DATE CREATED AUTHOR 08/12/2020 [facility] DATE CREATED AUTHOR AUTHOR'S ORGANIZ ATION 09/24/2021 [facility] DATE CREATED AUTHOR AUTHOR'S ORGANIZ ATION 07/20/2022 [facility] DATE CREATED AUTHOR AUTHOR'S ORGANIZ ATION 05/14/2023 [facility] Scheduled Active and Recently Administ ered Medications [...]
Care Teams (unrecognized sec tion and content) Night Order Selector Relationship Specialty Start Date End Date Roque, Aye Thomas, [facility] [place] [address] PCP - General 01/02/12 FOR [...] BE BASED ON THE PRIMARY CLINICAL RECORDS. [employer] provides no warranty or guarantee of the accuracy or completeness of information in this document.
[2023-06-25 01:17] LABS: ABG PCO2 37.6 mmHg (35.0-45.0); Base Excess ABG 0.2 mmol/L (-2.0-2.0); HCO3 ABG 24.6 mmol/L (22.0-26.0); Oxygen Saturation ABG 79.8 %; pH ABG 7.424 (7.350-7.450)
[2023-06-25 01:18] LABS: Allen Test POSITIVE (POSITIVE); O2 Mode ROOM AIR; Puncture Site RR
[2023-06-25] MEDS: ALBUTEROL SULFATE 2.5 MG/3 ML VIAL NEB IH (01:18)
[2023-06-25 01:19] LABS: PO2 ABG 41.1 mmHg (80.0-100.0)
[2023-06-25 01:38] LABS: Hematocrit 41.4 % (36.0-48.0); Hemoglobin 12.9 g/dL (12.0-16.0); Mean Corpuscular HGB Conc 31.2 g/dL (29.9-35.2); Mean Corpuscular Hemoglobin 30.8 pg (26.7-34.0); Mean Corpuscular Volume 98.8 fL (81.0-99.0); Mean Platelet Volume 9.3 fL (9.5-13.5); Platelet Count 177 10^3/uL (150-450); Red Blood Count 4.19 10^6/uL (4.20-5.40); Red Cell Distribution Width 12.5 % (11.0-15.0); White Blood Count 3.3 10^3/uL (4.0-11.0)
[2023-06-25 01:45] LABS: Influenza Virus A Antigen Negative; Influenza Virus B Antigen Negative; Internal Control Within Normal Limits; SARS-CoV-2 Ag POSITIVE (NEGATIVE)
[2023-06-25 01:59] LABS: Alanine Aminotransferase 20 U/L (14-59); Albumin Globulin Ratio 0.9; Albumin Level 3.1 g/dL (3.4-5.0); Alkaline Phosphatase 76 U/L (46-116); Anion Gap 11.9; Aspartate Amino Transferase 21 U/L (15-37); BUN Creatinine Ratio 18.9; Bilirubin Total 0.5 mg/dL (0.2-1.0); Carbon Dioxide 28.6 mmol/L (21.0-32.0); Chloride 104 mmol/L (98-107); Estimated GFR (African America >60 (>=60); Estimated GFR (Non-African Ame 56 (>=60); Globulin 3.4 g/dL; Glucose 152 mg/dL (74-106); Potassium 3.5 mmol/L (3.5-5.1); Sodium 141 mmol/L (136-145); Total Protein 6.5 g/dL (6.4-8.2); Troponin I High Sensitivity 4.2 pg/mL (4.0-51.3)
[2023-06-25 02:00] LABS: Band Neutrophils Absolute 0.7 10^3/uL (0.0-0.3); Lymphocytes Absolute Manual 0.39 10^3/uL (1.20-3.80); Metamyelocytes Absolute Manual 0.09; Monocytes Absolute Manual 0.26 10^3/uL (0.30-0.80); Segmented Neut Absolute Manual 1.84 10^3/uL (1.4-6.5)
[2023-06-25 02:02] LABS: INR 0.98; Partial Thromboplastin Time 27.3 sec (22.3-36.2); Prothrombin Time 10.4 sec (9.0-11.6)
--- NOTE | 2023-06-25 02:05 | CT_ITS ---
The [address] [address] Patient Name: JARROD CORTEZ MRN: [id number] date: 1940 Sex: F Assigned Patient Location: ER Current Patient Location: Accession/Order Number: [id number] Exam Date: 06/25/2023 02:35 Report Date: 06/25/2023 03:21 At the request of: BERNADINE MAXWELL Procedure: CT angio chest EXAM: CT angio chest HISTORY: hypoxia, Covid . Dyspnea. Low oxygen saturation. COMPARISON: Chest x-ray, 06/25/2023. TECHNIQUE: IV contrast enhanced CTA imaging the chest was performed using 100 mL of Omnipaque 350 intravenous contrast. The IV infiltrated near the end of the exam. The patient was reportedly confused, shaking uncontrollably and could not hold still. These are reportedly the best images possible. MIP and MPR images are provided with 3-D reconstructions of the aorta. Dose reduction techniques were achieved by using automated exposure control and/or adjustment of mA and/or kV according to patient size and/or use of iterative reconstruction technique. FINDINGS: There is good enhancement of the thoracic aorta with moderate atherosclerotic calcification. No dissection or aneurysm is seen. Cardiac size is normal. Prominent coronary arterial calcifications are present. There is no pericardial effusion. There is moderately limited enhancement of the pulmonary arteries, with the main pulmonary outflow tract measuring 162 Hounsfield units on image 40. Allowing for this, no central pulmonary embolism is seen through the main pulmonary artery level. The more peripheral branches cannot be adequately evaluated due to suboptimal enhancement and motion artifact. There is fluid in the mildly distended esophagus consistent with gastroesophageal reflux, with mild nonspecific esophageal wall thickening. The thyroid gland is unremarkable. There are patchy, somewhat nodular infiltrates in the bilateral upper lobe, right middle lobe, and lingula consistent with multifocal pneumonia. Streaky lower lobe atelectasis or fibrotic scarring is present with dependent atelectasis in the posterior lower lobes. Interlobular septal thickening in the periphery of the lungs is noted with mild peripheral honeycombing compatible with underlying chronic interstitial lung disease. No pleural effusion or pneumothorax is seen. The upper abdomen appears unremarkable. The bony thorax appears intact. CT/CT angio chest IMPRESSION: 1. Multifocal pneumonia with underlying chronic interstitial lung disease. No additional acute findings in the chest. 2. No aortic dissection or aneurysm. 3. Limited pulmonary arterial enhancement. No central pulmonary embolism through the main pulmonary artery level. 4. Coronary arterial calcifications. 5. Gastroesophageal reflux with mild nonspecific esophageal wall thickening favoring mild reflux esophagitis. Electronically authenticated by: ZAIN SWANSON Date: 06/25/2023 03:21
--- NOTE | 2023-06-25 02:58 | PC.NURSE ---
IV infiltrated in CT
--- OUTSIDE RECORDS SUMMARY | 2023-06-25 04:09 | XMS_ITS | CCD ---
Author Name Unknown Address [address] [facility] [address] [place] [address] Organization [facility] Care Team Providers Care Supervisor [employer] Name Role Phone Aye Nevarez Primary Care Provider DARIEN FERRARA Admitting Unavailable NANCY TRUJILLO Referring Unavailable AYE NEVAREZ Primary Care Unavailable HANSEL VERDUGO Consulting Unavailable DARLYN GARCIA Attending Unavailable TONY PARRISH Consulting Unavailable Aye Nevarez DO Primary Care Provider Aye Nevarez DO Primary Care Provider Aye Nevarez DO Primary Care Provider [phone] AYE NEVAREZ Referring Unavailable AYE NEVAREZ Primary [...] Substituted for Omeprazole (PRILOSEC). polyethylene glycol 3350 33257 mg powder for oral solution (2 sources) [...] 07-12-2022 Episodic Other aftercare (1 source) Other roasterman (current) drug therapy; Translations: [OTH SKILLED NURSING CURRENT DRUG THERAPY] Onset: 07-20-2022 Episodic Other [...] 05-09-2023 Bilirubin Ql (U) Negative Normal NEG [facility] Comment on above: Performed By: #### U A #### [facility] ([id number]) [address] [place] [address] [place] [address] BLOOD/HGB Negative Normal NEG [facility] Comment on above: Performed By: #### U A #### [facility] ([id number]) [address] [place] [address] [place] [address] Color (U) YELLOW Normal YELLOW [facility] Comment on above: Performed By: #### U A #### [facility] ([id number]) [address] [place] [address], [place] [address] Glucose Ql (U) Negative Normal NEG [facility] Comment on above: Performed By: #### U A #### [facility] ([id number]) [address] [place] [address] [place] [address] Ketones Ql (U) Negative Normal NEG [facility] Comment on above: Performed By: #### U A #### [facility] ([id number]) [address] [place] [address], [place] [address] Leukocyte esterase Test strip Ql (U) Negative Normal NEG [facility] Comment on above: Performed By: #### U A #### [facility] ([id number]) [address] [place] [address] [place] [address] Nitrite Ql (U) Negative Normal NEG [facility] Comment on above: Performed By: #### U A #### [facility] ([id number]) [address] [place] [address] pH (U) 6.5 [pH] Normal 5.0-8.5 [facility] Comment on above: Performed By: #### U A #### [facility] ([id number]) [address] [place] [address] Protein Ql (U) Negative Normal NEG [facility] Comment on above: Performed By: #### U A #### [facility] ([id number]) [address] [place] [address] Specific gravity (U) [Rel density] 1.010 Normal 1.003-1.035 [facility] Comment on above: Performed By: #### U A #### [facility] ([id number]) [address] [place] [address] TURBIDITY CLEAR Normal CLEAR [facility] Comment on above: Performed By: #### U A #### [facility] ([id number]) [address] [place] [address] Urinalysis dipstick W Reflex Microscopic panel (U) URINE RECEIVED WITHOUT PRESERVATIVE-DELAYS IN TRANSPORT MAY AFFECT RESULTS.INTERPRET WITH CAUTION AND CLINICAL CORRELATION IS RECOMMENDED. Normal [facility] Comment on above: Performed By: #### U A #### [facility] ([id number]) [address] [place] [address] Urobilinogen Qn (U) 0.2 {Kannan'U}/dL Normal <1.1 [facility] Comment on above: Performed By: #### U A #### [facility] ([id number]) [address] [place] [address] URINE CULTUREon 05-09-2023 Bacteria identified Cx Nom [...] F TRIMETH/SULFAMETHOXAZOL E S <=04/28 F Susceptible [facility] Comment on above: Performed By: #### 6 30-4 #### [facility] ([id number]) [address] [place] [address], [address] [place] [address] AMMONIAon 07-18-2022 Ammonia (P) [Mass/Vol] ug/dL Critically low -32 [facility] Comment on above: Performed By: #### H STROPN, TSH, CMP #### [facility] [address] [place] [address] Dr. King Moya CBC AUTO DIFFon 07-18-2022 BASO # 0.1 103/ul Normal 0.0-0.1 [facility] Comment on above: Performed By: #### C BC #### [facility] [address] [place] [address] Dr. King Moya Basophils/100 WBC (Bld) 0.7 % Normal 0.2-2.0 [facility] Comment on above: Performed By: #### C BC #### [facility] [address] [place] [address] Dr. King Moya EO # 0.1 103/ul Normal 0.0-0.7 [facility] Comment on above: Performed By: #### C BC #### [facility] [address] [place] [address] Dr. King Moya Eosinophils/100 WBC (Bld) 1.4 % Normal 0.9-7.0 [facility] Comment on above: Performed By: #### C BC #### [facility] [address] [place] [address] Dr. King Moya Erythrocyte distribution width (RBC) [Ratio] 12.7 % Normal 11.0-15.0 [facility] Comment on above: Performed By: #### C BC #### [facility] [address] [place] [address] Dr. King Moya Hematocrit (Bld) [Volume fraction] 32.5 % Critically low 36.0-48.0 [facility] Comment on above: Performed By: #### C BC #### [facility] [address] [place] [address] Dr. King Moya Hemoglobin (Bld) [Mass/Vol] 10.6 g/dL Critically low 12.0-16.0 [facility] Comment on above: Performed By: #### C BC #### [facility] [address] [place] [address] Dr. King Moya IG # 0.05 10e3/ul Critically high 0.00-0.03 [facility] Comment on above: Performed By: #### C BC #### [facility] [address] [place] [address] Dr. King Moya IG % 0.6 % Critically high 0.0-0.5 [facility] Comment on above: Performed By: #### C BC #### [facility] [address] [place] [address] Dr. King Moya LYMPH # 2.8 103/ul Normal 1.2-3.8 [facility] Comment on above: Performed By: #### C BC #### [facility] [address] [place] [address] Dr. King Moya Lymphocytes/100 WBC (Bld) 31.0 % Normal 20.5-60.0 [facility] Comment on above: Performed By: #### C BC #### [facility] [address] [place] [address] Dr. King Moya MANUAL DIFF REQ NO Normal [facility] Comment on above: Performed By: #### C BC #### [facility] [address] [place] [address] Dr. King Moya MCH (RBC) [Entitic mass] 31.5 pg Normal 26.7-34.0 [facility] Comment on above: Performed By: #### C BC #### [facility] [address] [address] [address] King Moya MCHC (RBC) [Mass/Vol] 32.6 g/dL Normal 29.9-35.2 [facility] Comment on above: Performed By: #### C BC #### [facility] [address] [address] [address] King Moya MCV (RBC) [Entitic vol] 96.4 fL Normal 81.0-99.0 [facility] Comment on above: Performed By: #### C BC #### [facility] [address] [place] [address] Dr. King Moya MONO # 0.8 103/ul Normal 0.3-0.8 [facility] Comment on above: Performed By: #### C BC #### [facility] [address] [place] [address] Dr. King Moya Monocytes/100 WBC (Bld) 9.1 % Normal 1.7-12.0 [facility] Comment on above: Performed By: #### C BC #### [facility] [address] [place] [address] Dr. King Moya NEUT # 5.1 103/ul Normal 1.4-6.5 [facility] Comment on above: Performed By: #### C BC #### [facility] [address] [place] [address] Dr. King Moya Neutrophils/100 WBC (Bld) 57.2 % Normal 43.0-75.0 [facility] Comment on above: Performed By: #### C BC #### [facility] [address] [place] [address] Dr. King Moya Platelet mean volume (Bld) [Entitic vol] 9.2 fL Critically low 9.5-13.5 [facility] Comment on above: Performed By: #### C BC #### [facility] [address] [place] [address] Dr. King Moya PLT 258 103/ul Normal 150-450 [facility] Comment on above: Performed By: #### C BC #### [facility] [address] [address] [address] King Moya RBC 3.37 106/ul Critically low 4.20-5.40 [facility] Comment on above: Performed By: #### C BC #### [facility] [address] [place], [place] [address] Dr. King Moya WBC 8.9 103/ul Normal 4.0-11.0 [facility] Comment on above: Performed By: #### C BC #### [facility] [address] [address] [address] King Moya Covid-19 PCR ([facility])on 07-09 SARS-CoV-2 (COVID-19) RNA TEMO+probe Ql (Unsp spec) Not detected Normal NOT DETECTED [facility] Comment on above: Result Comment: [...] for this test is supported by the [place] of Health and Human Service's declaration that [...] By: #### H STROPN, TSH, CMP #### [facility] [address] [place], [place] [address] Dr. King Moya ER URINE PROFILEon 3 Bilirubin Ql (U) Negative Normal NEGATIVE [facility] Comment on above: Performed By: #### E RUR #### [facility] [address] [place] [address] Dr. King Moya Clarity (U) CLEAR Normal CLEAR [facility] Comment on above: Performed By: #### E RUR #### [facility] [address] [place] [address] Dr. King Moya Color (U) YELLOW Normal YELLOW [facility] Comment on above: Performed By: #### E RUR #### [facility] [address] [place] [address] Dr. King Moya ERUAHEddie A micrscopic examination will be performed if indicated. Normal [facility] Comment on above: Performed By: #### E RUR #### [facility] [address] [place] [address] Dr. King Moya Glucose Ql (U) Negative Normal NEGATIVE [facility] Comment on above: Performed By: #### E RUR #### [facility] [address] [place] [address] Dr. King Moya Hemoglobin Ql (U) Negative Normal NEGATIVE [facility] Comment on above: Performed By: #### E RUR #### [facility] [address] [place] [address] Dr. King Moya Ketones Ql (U) 40 mg/dl Abnormal NEGATIVE [facility] Comment on above: Performed By: #### E RUR #### [facility] [address] [place] [address] Dr. King Moya LEUKOCYTES Negative Normal NEGATIVE [facility] Comment on above: Performed By: #### E RUR #### [facility] [address] [place] [address] Dr. King Moya Nitrite Ql (U) Negative Normal NEGATIVE [facility] Comment on above: Performed By: #### E RUR #### [facility] [address] [place] [address] Dr. King Moya pH (U) 6.5 [pH] Normal 5-9 [facility] Comment on above: Performed By: #### E RUR #### [facility] [address] [place] [address] Dr. King Moya SPEC GRAVITY 1.020 Normal 1.005-<=1.02 5 [facility] Comment on above: Performed By: #### E RUR #### [facility] [address] [place] [address] Dr. King Moya UA PROTEIN Negative Normal NEGATIVE/ TRACE [facility] Comment on above: Performed By: #### E RUR #### [facility] [address] [place] [address] Dr. King Moya UR MICRO IND NOT INDICATED Normal [facility] Comment on above: Performed By: #### E RUR #### [facility] [address] [place] [address] Dr. King Moya Urobilinogen Qn (U) 0.2 {Kannan'U}/dL Normal 0.2 - 1. 0 [facility] Comment on above: Performed By: #### E RUR #### [facility] [address] [place] [address] Dr. King Moya FREE T3on 07-18-2022 FREE T3 1.64 pg/mlL Critically low 2.18-3.98 [facility] Comment on above: Performed By: #### H STROPN, TSH, CMP #### [facility] [address] [place] [address] Dr. King Moya FREE T4on 07-18-2022 Free T4 [Mass/Vol] 0.73 ng/dL Critically low 0.76-1.46 [facility] Comment on above: Performed By: #### H STROPN, TSH, CMP #### [facility] [address] [place] [address] Dr. King Moya LACTATE/LACTIC ACIDon 2022 Lactate [Moles/Vol] 1.1 mmol/L Normal 0.4-2.0 [facility] Comment on above: Performed By: #### L ACT #### [facility] [address] [place] [address] Dr. King Moya PROF 14(COMP METB)on 023 Albumin [Mass/Vol] 2.9 g/dL Critically low 3.4-5.0 [facility] Comment on above: Performed By: #### H STROPN, TSH, CMP #### [facility] [address] [address] [address] King Moya Albumin/Globulin [Mass ratio] 0.9 {ratio} Normal [facility] Comment on above: Performed By: #### H STROPN, TSH, CMP #### [facility] [address] [address] [address] King Moya ALP [Catalytic activity/Vol] 68 U/L Normal 46-116 [facility] Comment on above: Performed By: #### H STROPN, TSH, CMP #### [facility] [address] [address] [address] King Moya ALT [Catalytic activity/Vol] 12 U/L Critically low 14-59 [facility] Comment on above: Performed By: #### H STROPN, TSH, CMP #### [facility] [address] [address] [address] King Moya Anion gap [Moles/Vol] 8.6 mmol/L Normal [facility] Comment on above: Performed By: #### H STROPN, TSH, CMP #### [facility] [address] [address] [address] King Moya AST [Catalytic activity/Vol] 16 U/L Normal 15-37 [facility] Comment on above: Performed By: #### H STROPN, TSH, CMP #### [facility] [address] [address] [address] King Moya Bilirubin [Mass/Vol] 0.1 mg/dL Critically low 0.2-1.0 [facility] Comment on above: Performed By: #### H STROPN, TSH, CMP #### [facility] [address] [address] [address] King Moya Calcium [Mass/Vol] 8.4 mg/dL Critically low 8.5-10.1 [facility] Comment on above: Performed By: #### H STROPN, TSH, CMP #### [facility] [address] [address] [address] King Moya Chloride [Moles/Vol] 106 mmol/L Normal 98-107 [facility] Comment on above: Performed By: #### H STROPN, TSH, CMP #### [facility] [address] [place] [address] Dr. King Moya CO2 [Moles/Vol] 29.3 mmol/L Normal 21.0-32.0 [facility] Comment on above: Performed By: #### H STROPN, TSH, CMP #### [facility] [address] [place] [address] Dr. King Moya Creatinine [Mass/Vol] 1.19 mg/dL Critically high 0.55-1.02 [facility] Comment on above: Performed By: #### H STROPN, TSH, CMP #### [facility] [address] [place] [address] Dr. King Moya EGFR-AF CYMRO 53 mL/min/1.73m2 Critically low >=60 [facility] Comment on above: Performed By: #### H STROPN, TSH, CMP #### [facility] [address] [place] [address] Dr. King Moya EGFR-NON AF CYMRO 43 mL/min/1.73m2 Critically low >=60 [facility] Comment on above: Performed By: #### H STROPN, TSH, CMP #### [facility] [address] [place] [address] Dr. King Moya Globulin (S) [Mass/Vol] 3.1 g/dL Normal [facility] Comment on above: Performed By: #### H STROPN, TSH, CMP #### [facility] [address] [place] [address] Dr. King Moya Glucose [Mass/Vol] 105 mg/dL Normal 74-106 [facility] Comment on above: Performed By: #### H STROPN, TSH, CMP #### [facility] [address] [place] [address] Dr. King Moya Potassium [Moles/Vol] 4.9 mmol/L Normal 3.5-5.1 [facility] Comment on above: Performed By: #### H STROPN, TSH, CMP #### [facility] [address] [address] [address] King Moya Protein [Mass/Vol] 6.0 g/dL Critically low 6.4-8.2 Th e [facility] Comment on above: Performed By: #### H STROPN, TSH, CMP #### [facility] [address] [address] [address] King Moya Sodium [Moles/Vol] 139 mmol/L Normal 136-145 [facility] Comment on above: Performed By: #### H STROPN, TSH, CMP #### [facility] [address] [address] [address] King Moya Urea nitrogen [Mass/Vol] 19.0 mg/dL Critically high 7.0-18.0 [facility] Comment on above: Performed By: #### H STROPN, TSH, CMP #### [facility] [address] [place] [address] Dr. King Moya Urea nitrogen/Creatinine [Mass ratio] 16.0 mg/mg Normal [facility] Comment on above: Performed By: #### H STROPN, TSH, CMP #### [facility] [address] [place] [address] Dr. King Moya PROTIMEon 07-18-2022 INR Coag (PPP) [Relative time] 0.97 {INR} Normal [facility] Comment on above: Performed By: #### P T, PTT #### [facility] [address] [place] [address] Dr. King Moya INR GUIDELINES SEE BELOW Normal [facility] Comment on above: Result Comment: LORRI RED INR: 2.0 - 3.0 CONDITIONS NOT LISTED BELOW 2.5 - 3.5 FOR PROSTHETIC HEART VALVE REPLACEMENT 2.5 - 3.5 RECURRENT THROMBOSIS Performed By: #### P T, PTT #### [facility] [address] [place] [address] Dr. King Moya PT Coag (PPP) [Time] 10.3 s Normal 9.0-11.6 [facility] Comment on above: Performed By: #### P T, PTT #### [facility] [address] [address] [address] King Moya PTTon 07-18-2022 aPTT Coag (Bld) [Time] 23.2 s Normal 22.3-36.2 Th [facility] Comment on above: Performed By: #### P T, PTT #### [facility] [address] [place] [address] Dr. King Moya TROPONIN, HIGH SENSITIVITYon 07-18-2022 HSTROP 8.6 pg/mL Normal 4.0-51.3 [facility] Comment on above: Result Comment: CUT- OFF POINTS HAVE BEEN ESTABLISHED BASED ON THE FOURTH UNIVERSAL DEFINITIONS OF MYOCARDIAL INFARCTION. THE UPPER REFERENCE LIMIT (URL) OF TROPONIN, DEFINED THE 99TH PERCENTILE OF cTnI DISTRIBUTION IN A REFERENCE POPULATION, HAS BEEN CONFIRMED THE DECISION THRESHOLD FOR TX DIAGNOSIS. Performed By: #### H STROPN, TSH, CMP #### [facility] [address] [place] [address] Dr. King Moya TSHon 07-18-2022 TSH 8.354 uIU/mL Critically high 0.358-3.740 [facility] Comment on above: Performed By: #### H STRORODRIGO, TSH, CMP #### [facility] [address] [place] [address] Dr. King Moya XR CHEST 1 Von 07-18-2022 XR CHEST 1 V CHEST X-RAY, 1 VIEW HISTORY: Hypotension. COMPARISON: 07/08/2022. FINDINGS: The cardiac silhouette is normal in size. There are aortic calcifications. The lungs are grossly clear. There are no pleural effusions. There is no pneumothorax. IMPRESSION: No evidence of acute cardiopulmonary disease. Electronically authenticated by: DAVIN CLAYTON Date: 2022-07-18 19:20 Normal [facility] CULTURE URINEon 07-11-2022 CULTURE URINE Isolate 1 [...] Trimethoprim/Sulfametho xazole <=20 S F Normal [facility] Comment on above: Performed By: #### H STRORODRIGO, TSH, CMP #### [facility] [address] [place] [address] Dr. King Moya ACETONE SERUMon 07-08-2022 ACETONE Negative Normal NEGATIVE [facility] Comment on above: Performed By: #### A CETON #### [facility] [address] [place] [address] Dr. King Moya CBC AUTO DIFFon 07-08-2022 BASO # 0.1 103/ul Normal 0.0-0.1 [facility] Comment on above: Performed By: #### H STRORODRIGO TSH, CMP #### [facility] [address] [place] [address] Dr. King Moya Basophils/100 WBC (Bld) 0.7 % Normal 0.2-2.0 [facility] Comment on above: Performed By: #### H WILMA TSH, CMP #### [facility] [address] [place] [address] Dr. King Moya EO # 0.1 103/ul Normal 0.0-0.7 [facility] Comment on above: Performed By: #### H STRORODRIGO, TSH, CMP #### [facility] [address] [place] [address] Dr. King Moya Eosinophils/100 WBC (Bld) 1.5 % Normal 0.9-7.0 [facility] Comment on above: Performed By: #### H STRORODRIGO TSH, CMP #### [facility] [address] [place] [address] Dr. King Moya Erythrocyte distribution width (RBC) [Ratio] 12.8 % Normal 11.0-15.0 [facility] Comment on above: Performed By: #### H STROPN, TSH, CMP #### [facility] [address] [address] [address] King Moya Hematocrit (Bld) [Volume fraction] 35.5 % Critically low 36.0-48.0 [facility] Comment on above: Performed By: #### H STROPN, TSH, CMP #### [facility] [address] [address] [address] King Moya Hemoglobin (Bld) [Mass/Vol] 11.6 g/dL Critically low 12.0-16.0 [facility] Comment on above: Performed By: #### H STROPN, TSH, CMP #### [facility] [address] [place] [address] Dr. King Moya IG # 0.05 10e3/ul Critically high 0.00-0.03 [facility] Comment on above: Performed By: #### H STROPN, TSH, CMP #### [facility] [address] [place] [address] Dr. King Moya IG % 0.6 % Critically high 0.0-0.5 [facility] Comment on above: Performed By: #### H STROPN, TSH, CMP #### [facility] [address] [address] [address] King Moya LYMPH # 2.8 103/ul Normal 1.2-3.8 [facility] Comment on above: Performed By: #### H STROPN, TSH, CMP #### [facility] [address] [address] [address] King Moya Lymphocytes/100 WBC (Bld) 31.8 % Normal 20.5-60.0 [facility] Comment on above: Performed By: #### H STROPN, TSH, CMP #### [facility] [address] [address] [address] King Moya MANUAL DIFF REQ NO Normal [facility] Comment on above: Performed By: #### H STROPN, TSH, CMP #### [facility] [address] [place] [address] Dr. King Moya MCH (RBC) [Entitic mass] 31.1 pg Normal 26.7-34.0 [facility] Comment on above: Performed By: #### H STROPN, TSH, CMP #### [facility] [address] [address] [address] King Moya MCHC (RBC) [Mass/Vol] 32.7 g/dL Normal 29.9-35.2 [facility] Comment on above: Performed By: #### H STROPN, TSH, CMP #### [facility] [address] [place] [address] Dr. King Moya MCV (RBC) [Entitic vol] 95.2 fL Normal 81.0-99.0 [facility] Comment on above: Performed By: #### H STROPN, TSH, CMP #### [facility] [address] [place] [address] Dr. King Moya MONO # 0.7 103/ul Normal 0.3-0.8 [facility] Comment on above: Performed By: #### H STROPN, TSH, CMP #### [facility] [address] [place] [address] Dr. King Moya Monocytes/100 WBC (Bld) 7.8 % Normal 1.7-12.0 [facility] Comment on above: Performed By: #### H STROPN, TSH, CMP #### [facility] [address] [place] [address] Dr. King Moya NEUT # 5.1 103/ul Normal 1.4-6.5 [facility] Comment on above: Performed By: #### H STROPN, TSH, CMP #### [facility] [address] [place] [address] Dr. King Moya Neutrophils/100 WBC (Bld) 57.6 % Normal 43.0-75.0 [facility] Comment on above: Performed By: #### H STROPN, TSH, CMP #### [facility] [address] [place] [address] Dr. King Moya Platelet mean volume (Bld) [Entitic vol] 9.1 fL Critically low 9.5-13.5 [facility] Comment on above: Performed By: #### H STROPN, TSH, CMP #### [facility] [address] [place], [place] [address] Dr. King Moya PLT 253 103/ul Normal 150-450 [facility] Comment on above: Performed By: #### H STROPN, TSH, CMP #### [facility] [address] [address] [address] King Moya RBC 3.73 106/ul Critically low 4.20-5.40 [facility] Comment on above: Performed By: #### H STROPN, TSH, CMP #### [facility] [address] [address] [address] King Moya WBC 8.9 103/ul Normal 4.0-11.0 [facility] Comment on above: Performed By: #### H STROPN, TSH, CMP #### [facility] [address] STROKE HEAD WOon [...] ABE BOSCH Date: 2022-07-08 19:27 Normal [facility] URINE PROFILEon 3 Bilirubin Ql (U) Negative Normal NEGATIVE [facility] Comment on above: Performed By: #### H STROPN, TSH, CMP #### [facility] [address] [address] [address] King Moya Clarity (U) CLEAR Normal CLEAR [facility] Comment on above: Performed By: #### H STROPN, TSH, CMP #### [facility] [address] [address] [address] King Moya Color (U) YELLOW Normal YELLOW [facility] Comment on above: Performed By: #### H STROPN, TSH, CMP #### [facility] [address] [place] [address] Dr. King MELISSA A micrscopic examination will be performed if indicated. Normal [facility] Comment on above: Performed By: #### H STROPN, TSH, CMP #### [facility] [address] [place] [address] Dr. King Moya Glucose Ql (U) Negative Normal NEGATIVE [facility] Comment on above: Performed By: #### H STROPN, TSH, CMP #### [facility] [address] [place] [address] Dr. King Moya Hemoglobin Ql (U) Negative Normal NEGATIVE [facility] Comment on above: Performed By: #### H STROPN, TSH, CMP #### [facility] [address] [place] [address] Dr. King Moya Ketones Ql (U) TRACE Abnormal NEGATIVE [facility] Comment on above: Performed By: #### H STROPN, TSH, CMP #### [facility] [address] [address] [address] King Moya LEUKOCYTES TRACE Abnormal NEGATIVE [facility] Comment on above: Performed By: #### H STROPN, TSH, CMP #### [facility] [address] [place] [address] Dr. King Moya Nitrite Ql (U) Negative Normal NEGATIVE [facility] Comment on above: Performed By: #### H STROPN, TSH, CMP #### [facility] [address] [address] [address] King Moya pH (U) 5.0 [pH] Normal 5-9 [facility] Comment on above: Performed By: #### H STROPN, TSH, CMP #### [facility] [address] [place] [address] Dr. King Moya SPEC GRAVITY >=1.030 Abnormal 1.005-<=1.02 5 [facility] Comment on above: Performed By: #### H STROPN, TSH, CMP #### [facility] [address] [place] [address] Dr. King Moya UA PROTEIN TRACE Normal NEGATIVE/ TRACE [facility] Comment on above: Performed By: #### H STROPN, TSH, CMP #### [facility] [address] [place] [address] Dr. King Moya UR MICRO IND INDICATED Normal [facility] Comment on above: Performed By: #### H STROPN, TSH, CMP #### [facility] [address] [place] [address] Dr. King Moya Urobilinogen Qn (U) 0.2 {Kannan'U}/dL Normal 0.2 - 1. 0 [facility] Comment on above: Performed By: #### H STROPN, TSH, CMP #### [facility] [address] [place] [address] Dr. King Moya LACTATE/LACTIC ACIDon 2022 Lactate [Moles/Vol] 1.1 mmol/L Normal 0.4-2.0 [facility] Comment on above: Performed By: #### L ACT #### [facility] [address] [place] [address] Dr. King Moya PROF 14(COMP METB)on 023 Albumin [Mass/Vol] 3.5 g/dL Normal 3.4-5.0 [facility] Comment on above: Performed By: #### H STROPN, TSH, CMP #### [facility] [address] [place] [address] Dr. King Moya Albumin/Globulin [Mass ratio] 1.2 {ratio} Normal [facility] Comment on above: Performed By: #### H STROPN, TSH, CMP #### [facility] [address] [place] [address] Dr. King Moya ALP [Catalytic activity/Vol] 58 U/L Normal 46-116 [facility] Comment on above: Performed By: #### H STROPN, TSH, CMP #### [facility] [address] [address] [address] King Moya ALT [Catalytic activity/Vol] 14 U/L Normal 14-59 [facility] Comment on above: Performed By: #### H STROPN, TSH, CMP #### [facility] [address] [address] [address] King Moya Anion gap [Moles/Vol] 10.7 mmol/L Normal [facility] Comment on above: Performed By: #### H STROPN, TSH, CMP #### [facility] [address] [address] [address] King Moya AST [Catalytic activity/Vol] 11 U/L Critically low 15-37 [facility] Comment on above: Performed By: #### H STROPN, TSH, CMP #### [facility] [address] [address] [address] King Moya Bilirubin [Mass/Vol] 0.2 mg/dL Normal 0.2-1.0 [facility] Comment on above: Performed By: #### H STROPN, TSH, CMP #### [facility] [address] [address] [address] King Moya Calcium [Mass/Vol] 9.2 mg/dL Normal 8.5-10.1 [facility] Comment on above: Performed By: #### H STROPN, TSH, CMP #### [facility] [address] [address] [address] King Moya Chloride [Moles/Vol] 105 mmol/L Normal 98-107 [facility] Comment on above: Performed By: #### H STROPN, TSH, CMP #### [facility] [address] [address] [address] King Moya CO2 [Moles/Vol] 28.7 mmol/L Normal 21.0-32.0 [facility] Comment on above: Performed By: #### H STROPN, TSH, CMP #### [facility] [address] [address] [address] King Moya Creatinine [Mass/Vol] 1.39 mg/dL Critically high 0.55-1.02 [facility] Comment on above: Performed By: #### H STROPN, TSH, CMP #### [facility] [address] [address] [address] King Moya EGFR-AF CYMRO 44 mL/min/1.73m2 Critically low >=60 [facility] Comment on above: Performed By: #### H STROPN, TSH, CMP #### [facility] [address] [address] [address] King Moya EGFR-NON AF CYMRO 36 mL/min/1.73m2 Critically low >=60 [facility] Comment on above: Performed By: #### H STROPN, TSH, CMP #### [facility] [address] [place] [address] Dr. King Moya Globulin (S) [Mass/Vol] 2.9 g/dL Normal [facility] Comment on above: Performed By: #### H STROPN, TSH, CMP #### [facility] [address] [place] [address] Dr. King Moya Glucose [Mass/Vol] 119 mg/dL Critically high 74-106 [facility] Comment on above: Performed By: #### H STROPN, TSH, CMP #### [facility] [address] [place] [address] Dr. King Moya Potassium [Moles/Vol] 4.4 mmol/L Normal 3.5-5.1 [facility] Comment on above: Performed By: #### H STROPN, TSH, CMP #### [facility] [address] [place] [address] Dr. King Moya Protein [Mass/Vol] 6.4 g/dL Normal 6.4-8.2 [facility] Comment on above: Performed By: #### H STROPN, TSH, CMP #### [facility] [address] [place] [address] Dr. King Moya Sodium [Moles/Vol] 140 mmol/L Normal 136-145 [facility] Comment on above: Performed By: #### H STROPN, TSH, CMP #### [facility] [address] [place] [address] Dr. King Moya Urea nitrogen [Mass/Vol] 24.0 mg/dL Critically high 7.0-18.0 [facility] Comment on above: Performed By: #### H WILMA TSH, CMP #### [facility] [address] [address] [address] King Moya Urea nitrogen/Creatinine [Mass ratio] 17.3 mg/mg Normal [facility] Comment on above: Performed By: #### H WILMA TSH, CMP #### [facility] [address] [address] [address] King Moya PROTIMEon 07-08-2022 INR Coag (PPP) [Relative time] 0.97 {INR} Normal [facility] Comment on above: Performed By: #### H ALEKSEY DILLON, CMP #### [facility] [address] [place] [address] Dr. King Moya INR GUIDELINES SEE BELOW Normal [facility] Comment on above: Result Comment: LORRI RED INR: 2.0 - 3.0 CONDITIONS NOT LISTED BELOW 2.5 - 3.5 FOR PROSTHETIC HEART VALVE REPLACEMENT 2.5 - 3.5 RECURRENT THROMBOSIS Performed By: #### H ALEKSEY DILLON, CMP #### [facility] [address] [address] [address] King Moya PT Coag (PPP) [Time] 10.3 s Normal 9.0-11.6 [facility] Comment on above: Performed By: #### H WILMA TSH, CMP #### [facility] [address] [address] [address] King Moya PTTon 07-08-2022 aPTT Coag (Bld) [Time] 24.8 s Normal 22.3-36.2 [facility] Comment on above: Performed By: #### H WILMA TSH, CMP #### [facility] [address] [place] [address] Dr. King Moya TROPONIN, HIGH SENSITIVITYon 07-08-2022 HSTROP 5.9 pg/mL Normal 4.0-51.3 [facility] Comment on above: Result Comment: CUT- OFF POINTS HAVE BEEN ESTABLISHED BASED ON THE FOURTH UNIVERSAL DEFINITIONS OF MYOCARDIAL INFARCTION. THE UPPER REFERENCE LIMIT (URL) OF TROPONIN, DEFINED THE 99TH PERCENTILE OF cTnI DISTRIBUTION IN A REFERENCE POPULATION, HAS BEEN CONFIRMED THE DECISION THRESHOLD FOR TX DIAGNOSIS. Performed By: #### H STROPN, TSH, CMP #### [facility] [address] [address] [address] King Moya TSHon 07-08-2022 TSH 6.513 uIU/mL Critically high 0.358-3.740 [facility] Comment on above: Performed By: #### H STROPN, TSH, CMP #### [facility] [address] [address] [address] King Moya URINE MICROSCOPIC ONLYon BACTERIA TRACE Abnormal NONE SEEN [facility] Comment on above: Performed By: #### H STROPN, TSH, CMP #### [facility] [address] [place] [address] Dr. King Moya Bacteria identified Cx Nom (U) INDICATED Normal [facility] Comment on above: Performed By: #### H STROPN, TSH, CMP #### [facility] [address] [place] [address] Dr. King Moya CAST SEEN Abnormal NONE SEEN [facility] Comment on above: Performed By: #### H STROPN, TSH, CMP #### [facility] [address] [place] [address] Dr. King Moya Crystals LM Nom (Urine sed) NONE SEEN Normal NONE SEEN [facility] Comment on above: Performed By: #### H STROPN, TSH, CMP #### [facility] [address] [place] [address] Dr. King Moya Epithelial cells LM Ql (Urine sed) RARE Normal NONE SEEN /RARE [facility] Comment on above: Performed By: #### H STROPN, TSH, CMP #### [facility] [address] [place] [address] Dr. King Moya HYALINE CAST RARE Normal [facility] Comment on above: Performed By: #### H STROPN, TSH, CMP #### [facility] [address] [address] [address] King Moya MUCOUS NONE SEEN Normal NONE SEEN [facility] Comment on above: Performed By: #### H STROPN, TSH, CMP #### [facility] [id number] King Moya RBC 0-2 Normal 0-2 [facility] Comment on above: Performed By: #### H LAYLAPN, TSH, CMP #### [facility] [id number] King Moya WBC 5-10 Abnormal NONE SEEN [facility] Comment on above: Performed By: #### H STROPN, TSH, CMP #### [facility] [address] [address] [address] King Moya XR CHEST 1 Von 07-08-2022 XR CHEST 1 V EXAM: XR CHEST 1 V HISTORY: SHORTNESS OF BREATH COMPARISON: None. TECHNIQUE: Single view of the chest FINDINGS: Heart size normal. No focal consolidation, pleural effusion, pulmonary congestion or pneumothorax. IMPRESSION: No acute findings. Electronically authenticated by: CLARE NUNN Date: 2022-07-08 20:02 Normal [facility] CBC with Auto Differentialon 09-23-2021 Absolute Eos # 0.37 [facility] Absolute Immature Granulocyte 0.05 [facility] Absolute Lymph # 2.94 [facility] Absolute Alcorn # 0.90 [facility] Basophils (Bld) [#/Vol] 0.10 10*3/uL [facility] Basophils/100 WBC (Bld) 1 % 0 - 2 % [facility] Eosinophils/100 WBC (Bld) 4 % 1 - 4 % [facility] Hematocrit (Bld) [Volume fraction] 35.5 % Low 36.3 - 47.1 % [facility] Hemoglobin (Bld) [Mass/Vol] 11.1 g/dL Low 11.9 - 15.1 g/dL [facility] Immature granulocytes/100 WBC (Bld) 1 % High 0 [facility] Interpretation and review of laboratory results Abnormal [facility] Lymphocytes/100 WBC (Bld) 28 % 24 - 43 % [facility] MCH (RBC) [Entitic mass] 31.4 pg 25.2 - 33.5 pg [facility] MCHC (RBC) [Mass/Vol] 31.3 g/dL 28.4 - 34.8 g/dL [facility] MCV (RBC) [Entitic vol] 100.3 fL 82.6 - 102.9 fL [facility] Monocytes/100 WBC (Bld) 9 % 3 - 12 % [facility] NRBC Automated 0.0 0.0 per 100 WBC [facility] Platelet distribution width (Bld) [Ratio] 11.9 % 11.8 - 14.4 % [facility] Platelet mean volume (Bld) [Entitic vol] 9.2 fL 8.1 - 13.5 fL [facility] Platelets (Bld) [#/Vol] 325 10*3/uL [facility] RBC (Bld) [#/Vol] 3.54 10*6/uL Low 3.95 - 5.1 1 m/uL [facility] Segmented neutrophils/100 WBC (Bld) 57 % 36 - 65 % [facility] Segs Absolute 6.06 [facility] WBC (Bld) [#/Vol] 10.4 10*3/uL [facility] CBC with Diffon 09-23-2021 Abs. Basophil 0.10 k/uL Normal 0.00-0.20 [facility] Comment on above: Performed By: #### C DP, CP #### [facility] [address] [place] [address] [place] [address] [employer]: Emerson Hall MD #### LIPR #### [address] [address] [employer]: Kyle Cowan MD Abs.Imm.Granulocyte 0.05 k/uL Normal 0.00-0.30 [facility] Comment on above: Performed By: #### C DP, CP #### [facility] [address] [place] [id number] [employer]: Emerson Hall MD #### LIPR #### [place] [id number] [employer]: Kyle Cowan MD Abs.Neutrophil (Seg) 6.06 k/uL Normal 1.50-8.10 [facility] Comment on above: Performed By: #### C DP, CP #### [address] [place] [id number] [employer]: Emerson Hall MD #### LIPR #### [place] [place] [id number] [employer]: Kyle Cowan MD Basophils/100 WBC (Bld) 1 % Normal 0-2 [facility] Comment on above: Performed By: #### C DP, CP #### [address] [place] [address] [employer]: Emerson Hall MD #### LIPR #### [place] [address] [employer]: Kyle Cowan MD Eosinophils (Bld) [#/Vol] 0.37 10*3/uL Normal 0.00-0.44 [facility] Comment on above: Performed By: #### C DP, CP #### [address] [place] [id number] [employer]: Emerson Hall MD #### LIPR #### [place] [address] [employer]: Kyle Cowan MD Eosinophils/100 WBC (Bld) 4 % Normal 1-4 [facility] Comment on above: Performed By: #### C DP, CP #### [address] [place] [id number] [employer]: Emerson Hall MD #### LIPR #### [address] [id number] [employer]: Kyle Cowan MD Erythrocyte distribution width (RBC) [Ratio] 11.9 % Normal 11.8-14.4 [facility] Comment on above: Performed By: #### C DP, CP #### [facility] [address] [place], [place] [id number] [employer]: Emerson Hall MD #### LIPR #### [address] [id number] [employer]: Kyle Cowan MD Hematocrit (Bld) [Volume fraction] 35.5 % Low 36.3-47.1 [facility] Comment on above: Performed By: #### C DP, CP #### [address] [place] [id number] [employer]: Emerson Hall MD #### LIPR #### [address] [id number] [employer]: Kyle Cowan MD Hemoglobin (Bld) [Mass/Vol] 11.1 g/dL Low 11.9-15.1 [facility] Comment on above: Performed By: #### C DP, CP #### [address] [place] [id number] [employer]: Emerson Hall MD #### LIPR #### [address] [address] [employer]: Kyle Cowan MD Immature granulocytes/100 WBC (Bld) 1 % High 0 [facility] Comment on above: Performed By: #### C DP, CP #### [address] [place], [place] [id number] [employer]: Emerson Hall MD #### LIPR #### [address] [address] [employer]: Kyle Cowan MD Lymphocytes (Bld) [#/Vol] 2.94 10*3/uL Normal 1.10-3.70 [facility] Comment on above: Performed By: #### C DP, CP #### [facility] [address] [place] [address] Dr. [place] [phone] [employer]: Emerson Hall MD #### LIPR #### [address] [id number] [employer]: Kyle Cowan MD Lymphocytes/100 WBC (Bld) 28 % Normal 24-43 [facility] Comment on above: Performed By: #### C DP, CP #### [address] [place] [phone] [employer]: Emerson Hall MD #### LIPR #### [address] [address] [employer]: Kyle Cowan MD MCH (RBC) [Entitic mass] 31.4 pg Normal 25.2-33.5 [facility] Comment on above: Performed By: #### C DP, CP #### [address] [place] [phone] [employer]: Emerson Hall MD #### LIPR #### [address] [address] [employer]: Kyle Cowan MD MCHC (RBC) [Mass/Vol] 31.3 g/dL Normal 28.4-34.8 [facility] Comment on above: Performed By: #### C DP, CP #### [address] [place] [phone] [employer]ender: Emerson Hall MD #### LIPR #### [address] [address] [employer]ender: Kyle Cowan MD MCV (RBC) [Entitic vol] 100.3 fL Normal 82.6-102.9 [facility] Comment on above: Performed By: #### C DP, CP #### [address] [place] [place] [address] [employer]ender: Emerson Hall MD #### LIPR #### [address] [address] [employer]: Kyle Cowan MD Monocytes (Bld) [#/Vol] 0.90 10*3/uL Normal 0.10-1.20 [facility] Comment on above: Performed By: #### C DP, CP #### [address] [place] [id number] ( [employer]: Emerson Hall MD #### LIPR #### [address] [address] [employer]ender: Kyle Cowan MD Monocytes/100 WBC (Bld) 9 % Normal 3-12 [facility] Comment on above: Performed By: #### C DP, CP #### [address] [place], [place] [id number] [employer]ender: Emerson Hall MD #### LIPR #### [address] [address] [employer]: Kyle Cowan MD Neutrophil (Seg) 57 % Normal 36-65 [facility] Comment on above: Performed By: #### C DP, CP #### [address] [place] [place] [address] [employer]ender: Emerson Hall MD #### LIPR #### [address] [address] [employer]: Kyle Cowan MD NRBC Automated 0.0 per 100 WBC Normal 0.0 [facility] Comment on above: Performed By: #### C DP, CP #### [facility] [address] [place], [place] [phone] [employer]ender: Emerson Hall MD #### LIPR #### [place] [address] [address] [place], [place] [id number] [employer]: Kyle Cowan MD Platelet mean volume (Bld) [Entitic vol] 9.2 fL Normal 8.1-13.5 [facility] Comment on above: Performed By: #### C DP, CP #### [facility] [address] [place], [place] [id number] [employer]: Emerson Hall MD #### LIPR #### [address] [id number] [employer]: Kyle Cowan MD Platelets (Bld) [#/Vol] 325 10*3/uL Normal 138-453 [facility] Comment on above: Performed By: #### C DP, CP #### [facility] [address] [place], [place] [id number] [employer] Screen Tender: Emerson Hall MD #### LIPR #### [address] [address] [employer] Screen Tender: Kyle Cowan MD RBC (Bld) [#/Vol] 3.54 10*6/uL Low 3.95-5.11 [facility] Comment on above: Performed By: #### C DP, CP #### [facility] [address] [place], [place] [phone] [employer] Screen Tender: Emerson Hall MD #### LIPR #### [address] [place] [address] [employer] Screen Tender: Kyle Cowan MD WBC (Bld) [#/Vol] 10.4 10*3/uL Normal 3.5-11.3 [facility] Comment on above: Performed By: #### C DP, CP #### [facility] [address] [place], [place] [id number] [employer] Screen Tender: Emerson Hall MD #### LIPR #### [facility] [address] [place], [place] [phone] [employer] Screen Tender: Kyle Cowan MD Comp Metabolic Profon 2021 (cont.) Normal [facility] Comment on above: Result Comment: Aver age GFR for 70 or more years old: 75 mL/min/1.73sq m Chronic Kidney Disease: <60 mL/min/1.73sq m Kidney failure: <15 mL/min/1.73sq m eGFR calculated using average adult body mass. Additional eGFR calculator available at: http://www.[employer]multiple_crcl_2012.htm Performed By: #### B C #### [facility] [address] [place] [address] [place] [place], [place] [phone] Ch[employer] Screen Tender: Emerson Hall MD Albumin [Mass/Vol] 3.8 g/dL Normal 3.5-5.2 [facility] Comment on above: Performed By: #### B C #### [facility] [address] [place] [address] [place] [place], [place] [phone] [employer] Screen Tender: Emerson Hall MD Albumin/Glob Ratio 1.4 Normal 1.0-2.5 [facility] Comment on above: Performed By: #### B C #### [facility] [address] [place], [place] [phone] [employer] Screen Tender: Emerson Hall MD Alkaline Phos 69 U/L Normal 35-104 [facility] Comment on above: Performed By: #### B C #### [facility] [address] [place], [place] [phone] [employer] Screen Tender: Emerson Hall MD ALT [Catalytic activity/Vol] 6 U/L Normal 5-33 [facility] Comment on above: Performed By: #### B C #### [facility] [address] [place], [place] [phone] [employer] Screen Tender: Emerson Hall MD Anion gap [Moles/Vol] 6 mmol/L Low 9-17 [facility] Comment on above: Performed By: #### B C #### [facility] [address] [place], [place] 7805083 [employer] Screen Tender: Emerson Hall MD AST [Catalytic activity/Vol] 12 U/L Normal <32 [facility] Comment on above: Performed By: #### B C #### [facility] [address] [place], [place] [phone] Ch[employer] Screen Tender: Emerson Hall MD Bilirubin [Mass/Vol] 0.27 mg/dL Low 0.3-1.2 [facility] Comment on above: Performed By: #### B C #### [facility] [address] [place], [place] 1299183 [employer] Screen Tender: Emerson Hall MD BUN/CRE Ratio 26 High 9-20 [facility] Comment on above: Performed By: #### B C #### [facility] [address] [place], [place] [phone] [employer] Screen Tender: Emerson Hall MD Calcium [Mass/Vol] 9.2 mg/dL Normal 8.6-10.4 [facility] Comment on above: Performed By: #### B C #### [facility] [address] [place], [place] 4157583 [employer] Screen Tender: Emerson Hall MD Chloride [Moles/Vol] 106 mmol/L Normal 98-107 [facility] Comment on above: Performed By: #### B C #### [facility] [address] [place], [place] 1668083 [employer] Screen Tender: Emerson Hall MD CO2 [Moles/Vol] 29 mmol/L Normal 20-31 [facility] Comment on above: Performed By: #### B C #### [facility] [address] [place], [place] 0627283 Ch[employer] Screen Tender: Emerson Hall MD Creatinine [Mass/Vol] 0.73 mg/dL Normal 0.50-0.90 [facility] Comment on above: Performed By: #### B C #### [facility] [address] [place], [place] 8124383 [employer] Screen Tender: Emerson Hall MD GFR, Amer >60 Normal >60 [facility] Comment on above: Performed By: #### B C #### [facility] [address] [place], [place] 9[address]1983 [employer] Screen Tender: Emerson Hall MD GFR,non Amer >60 Normal >60 [facility] Comment on above: Performed By: #### B C #### [facility] [address] [place], [place] 5830983 [employer] Screen Tender: Emerson Hall MD Glucose [Mass/Vol] 92 mg/dL Normal 70-99 [facility] Comment on above: Performed By: #### B C #### [facility] [address] [place], [place] 8347983 [employer] Screen Tender: Emerson Hall MD Potassium [Moles/Vol] 5.1 mmol/L Normal 3.7-5.3 [facility] Comment on above: Performed By: #### B C #### [facility] [address] [place], [place] 0812583 [employer] Screen Tender: Emerson Hall MD Protein [Mass/Vol] 6.5 g/dL Normal 6.4-8.3 [facility] Comment on above: Performed By: #### B C #### [facility] [address] [place], [place] 3954083 [employer] Screen Tender: Emerson Hall MD Sodium [Moles/Vol] 141 mmol/L Normal 135-144 [facility] Comment on above: Performed By: #### B C #### [facility] [address] [place] [address] Ch[employer] Screen Tender: Emerson Hall MD Staging: Normal [facility] Comment on above: Result Comment: Stag e 1: Some kidney damage normal GFR Stage 2: Mild kidney damage GFR 60-89 Stage 3: Moderate kidney damage GFR 30-59 Stage 4: Severe kidney damage GFR 15-29 Stage 5: Severe kidney damage GFR <15 ESRD - chronic treatment by dialysis or transplant Performed By: #### B C #### [facility] [address] [place] [address] [employer] Screen Tender: Emerson Hall MD Urea nitrogen [Mass/Vol] 19 mg/dL Normal 8-23 [facility] Comment on above: Performed By: #### B C #### [facility] [address] [place] [address] Chips Screen Tender: Emerson Hall MD [facility] Metabolic Pane [facility] 09-23-2021 Albumin [Mass/Vol] 3.8 g/dL 3.5 - 5.2 g/dL [facility] Albumin/Globulin [Mass ratio] 1.4 {ratio} [facility] ALP (Bld) [Catalytic activity/Vol] 69 U/L 35 - 104 U/L [facility] ALT [Catalytic activity/Vol] 6 U/L 5 - 33 U/L [facility] Anion gap [Moles/Vol] 6 mmol/L Low 9 - 17 mmol/L [facility] AST [Catalytic activity/Vol] 12 U/L <32 [facility] Bilirubin [Mass/Vol] 0.27 mg/dL Low 0.3 - 1 .2 mg/dL [facility] Calcium [Mass/Vol] 9.2 mg/dL 8.6 - 10. 4 mg/dL [facility] Chloride [Moles/Vol] 106 mmol/L 98 - 10 7 mmol/L [facility] CO2 [Moles/Vol] 29 mmol/L 20 - 31 mmol/L [facility] Creatinine [Mass/Vol] 0.73 mg/dL 0.50 - 0.90 mg/dL [facility] Free PSA/Total PSA [Mass fraction] 6.5 g/dL 6.4 - 8.3 g/dL [facility] GFR >60 >60 mL/min [facility] GFR Non- >60 >60 mL/min [facility] Glucose [Mass/Vol] 92 mg/dL 70 - 99 mg/dL [facility] Interpretation and review of laboratory results Abnormal [facility] Potassium [Moles/Vol] 5.1 mmol/L 3.7 - 5.3 mmol/L [facility] Sodium [Moles/Vol] 141 mmol/L 135 - 144 mmol/L [facility] Urea nitrogen (BldV) [Mass/Vol] 19 mg/dL 8 - 23 mg/dL [facility] Urea nitrogen/Creatinine (Bld) [Mass ratio] 26 High [facility] Laboratory - Chemistry and C hemistry - challengeon 09-23-2021 GFR/1.73 sq M.predicted MDRD (S/P/Bld) [Vol rate/Area] [facility] Comment on above: Average GFR for 70 o r more years old: 75 mL/min/1.73sq m Chronic Kidney Disease: <60 mL/min/1.73sq m Kidney failure: <15 mL/min/1.73sq m eGFR calculated using average adult body mass. Additional eGFR calculator available at: http://www.[employer]/multiple_crcl_2012.htm Stage 1: Some kidney damage normal GFR Stage 2: Mild kidney damage GFR 60-89 Stage 3: Moderate kidney damage GFR 30-59 Stage 4: Severe kidney damage GFR 15-29 Stage 5: Severe kidney damage GFR <15 ESRD - chronic treatment by dialysis or transplant Lipid Panelon 09-23-2021 Cholesterol [Mass/Vol] 150 mg/dL <200 [facility] Comment on above: Cholesterol Guidelines: <200 Desirable 200-240 Borderline >240 Undesirable Cholesterol in HDL [Mass/Vol] 48 mg/dL >40 [facility] Comment on above: HDL Guidelines: <40 Undesirable 40-59 Borderline >59 Desirable Cholesterol in LDL [Mass/Vol] 83 mg/dL 0 - 130 mg/dL [facility] Comment on above: LDL Guidelines: <100 Desirable 100-129 Near to/above Desirable 130-159 Borderline >159 Undesirable Direct (measured) LDL and calculated LDL are not interchangeable tests. Cholesterol.total/Chol esterol in HDL [Mass ratio] 3.1 {ratio} <5 [facility] Triglyceride [Mass/Vol] 97 mg/dL <150 [facility] Comment on above: Triglyceride Guidelines: <150 Desirable 150-199 Borderline 200-499 High >499 Very high Based on AHA Guidelines for fasting triglyceride, January 2012. [facility] Lipid Profileon 09-23-2021 Cholesterol [Mass/Vol] 150 mg/dL Normal <200 [facility] Comment on above: Result Comment: Cholesterol Guidelines: <200 Desirable 200-240 Borderline >240 Undesirable Performed By: #### B C #### [facility] [address] [place] [address] [place] [address] [employer] Screen Tender: Emerson Hall MD Cholesterol in HDL [Mass/Vol] 48 mg/dL Normal >40 [facility] Comment on above: Result Comment: HDL Guidelines: <40 Undesirable 40-59 Borderline >59 Desirable Performed By: #### B C #### [facility] [address] [place] [address] [employer] Screen Tender: Emerson Hall MD Cholesterol in LDL [Mass/Vol] 83 mg/dL Normal 0-130 [facility] Comment on above: Result Comment: LDL Guidelines: <100 Desirable 100-129 Near to/above Desirable 130-159 Borderline >159 Undesirable Direct (measured) LDL and calculated LDL are not interchangeable tests. Performed By: #### B C #### [facility] [address] [place] [address] [employer] Screen Tender: Emerson Hall MD Cholesterol.total/Chol esterol in HDL [Mass ratio] 3.1 {ratio} Normal <5 [facility] Comment on above: Performed By: #### B C #### [facility] [address] [place] [address] [place] [address] [employer] Screen Tender: Emerson Hall MD Triglyceride [Mass/Vol] 97 mg/dL Normal <150 [facility] Comment on above: Result Comment: Triglyceride Guidelines: <150 Desirable 150-199 Borderline 200-499 High >499 Very high Based on AHA Guidelines for fasting triglyceride, January 2012. Performed By: #### B C #### [address] [place] [place] [address] [employer] Screen Tender: Emerson Hall MD Lipid Profileon 04-29-2021 Cholesterol [Mass/Vol] 162 mg/dL Normal <200 [facility] Comment on above: Result Comment: Cholesterol Guidelines: <200 Desirable 200-240 Borderline >240 Undesirable Performed By: #### C DP, CP #### [facility] [address] [place] [address] [place] [address] [employer] Screen Tender: Emerson Hall MD #### LIPR #### [address] [place], [place] [phone] [employer] Screen Tender: Kyle Cowan MD Cholesterol in HDL [Mass/Vol] 58 mg/dL Normal >40 [facility] Comment on above: Result Comment: HDL Guidelines: <40 Undesirable 40-59 Borderline >59 Desirable Performed By: #### C DP, CP #### [facility] [address] [place] [address] [place] [address] [employer] Screen Tender: Emerson Hall MD #### LIPR #### [address] [place], [place] [id number] [employer] Screen Tender: Kyle Cowan MD Cholesterol in LDL [Mass/Vol] 86 mg/dL Normal 0-130 [facility] Comment on above: Result Comment: LDL Guidelines: <100 Desirable 100-129 Near to/above Desirable 130-159 Borderline >159 Undesirable Direct (measured) LDL and calculated LDL are not interchangeable tests. Performed By: #### C DP, CP #### [facility] [address] [place], [place] [phone] [employer] Screen Tender: Emerson Hall MD #### LIPR #### [address] [id number] [employer] Tender: Kyle Cowan MD Cholesterol.total/Chol esterol in HDL [Mass ratio] 2.8 {ratio} Normal <5 [facility] Comment on above: Performed By: #### C DP, CP #### [facility] [address] [place] [phone] [employer] Screen Tender: Emerson Hall MD #### LIPR #### [address] [address] Ch[employer] Screen Tender: Kyle Cowan MD Triglyceride [Mass/Vol] 88 mg/dL Normal <150 [facility] Comment on above: Result Comment: Triglyceride Guidelines: <150 Desirable 150-199 Borderline 200-499 High >499 Very high Based on AHA Guidelines for fasting triglyceride, January 2012. Performed By: #### C KOLBY, CP #### [facility] [address] [place] [phone] [employer] Tender: Emerson Hall MD #### LIPR #### [address] [address] Ch[employer] Screen Tender: Kyle Cowan MD CBC with Diffon 04-28-2021 Abs. Basophil 0.06 k/uL Normal 0.00-0.20 [facility] Comment on above: Performed By: #### C KOLBY, CP #### [facility] [address] [place] [address] [employer] Screen Tender: Emerson Hall MD #### LIPR #### [address] [place], [place] [phone] Ch[employer] Screen Tender: Kyle Cowan MD Abs.Imm.Granulocyte <0.03 Normal 0.00-0.30 [facility] Comment on above: Performed By: #### C DP, CP #### [facility] [address] [place], [place] [phone] Chips Screen Tender: Emerson Hall MD #### LIPR #### [address] [phone] [employer] Tender: Kyle Cowan MD Abs.Neutrophil (Seg) 5.78 k/uL Normal 1.50-8.10 [facility] Comment on above: Performed By: #### C DP, CP #### [facility] [address] [place] [address] [place], [place] [phone] [employer] Screen Tender: Emerson Hall MD #### LIPR #### [address] [id number] [employer] Tender: Kyle Cowan MD Basophils/100 WBC (Bld) 1 % Normal 0-2 [facility] Comment on above: Performed By: #### C DP, CP #### [address] [place], [place] 884[address]83 [employer] Screen Tender: Emerson Hall MD #### LIPR #### [address] [address] Ch[employer] Screen Tender: Kyle Cowan MD Eosinophils (Bld) [#/Vol] 0.19 10*3/uL Normal 0.00-0.44 [facility] Comment on above: Performed By: #### C DP, CP #### [facility] [address] [place] [address] [place], [place] [phone] Ch[employer] Screen Tender: Emerson Hall MD #### LIPR #### [address] [address] Chips Screen Tender: Kyle Cowan MD Eosinophils/100 WBC (Bld) 2 % Normal 1-4 [facility] Comment on above: Performed By: #### C DP, CP #### [address] [place], [place] 2164183 Ch[employer] Screen Tender: Emerson Hall MD #### LIPR #### [address] [id number] [employer] Tender: Kyle Cowan MD Erythrocyte distribution width (RBC) [Ratio] 12.3 % Normal 11.8-14.4 [facility] Comment on above: Performed By: #### C DP, CP #### [address] [place], [place] [phone] Ch[employer] Screen Tender: Emerson Hall MD #### LIPR #### [address] [id number] [employer] Screen Tender: Kyle Cowan MD Hematocrit (Bld) [Volume fraction] 37.6 % Normal 36.3-47.1 [facility] Comment on above: Performed By: #### C DP, CP #### [address] [place], [place] 8928083 Ch[employer] Screen Tender: Emerson Hall MD #### LIPR #### [address] [phone] [employer] Tender: Kyle Cowan MD Hemoglobin (Bld) [Mass/Vol] 12.1 g/dL Normal 11.9-15.1 [facility] Comment on above: Performed By: #### C DP, CP #### [address] [place], [place] 6467183 Ch[employer] Screen Tender: Emerson Hall MD #### LIPR #### [address] [address] Ch[employer] Screen Tender: Kyle Cowan MD Immature granulocytes/100 WBC (Bld) 0 % Normal 0 [facility] Comment on above: Performed By: #### C DP, CP #### [address] [place], [place] 4557083 Ch[employer] Screen Tender: Emerson Hall MD #### LIPR #### [address] [id number] [employer] Tender: Kyle Cowan MD Lymphocytes (Bld) [#/Vol] 3.12 10*3/uL Normal 1.10-3.70 [facility] Comment on above: Performed By: #### C DP, CP #### [facility] [address] [place] [address] [place] [address] Ch[employer] Screen Tender: Emerson Hall MD #### LIPR #### [place] [address] Ch[employer] Screen Tender: Kyle Cowan MD Lymphocytes/100 WBC (Bld) 32 % Normal 24-43 [facility] Comment on above: Performed By: #### C DP, CP #### [address] [place] [address] Chips Screen Tender: Emerson Hall MD #### LIPR #### [place] [address] Chips Screen Tender: Kyle Cowan MD MCH (RBC) [Entitic mass] 31.6 pg Normal 25.2-33.5 [facility] Comment on above: Performed By: #### C DP, CP #### [address] [place] [address] Chips Screen Tender: Emerson Hall MD #### LIPR #### [place] [address] Ch[employer] Screen Tender: Kyle Cowan MD MCHC (RBC) [Mass/Vol] 32.2 g/dL Normal 28.4-34.8 [facility] Comment on above: Performed By: #### C DP, CP #### [address] [place] [address] Chips Screen Tender: Emerson Hall MD #### LIPR #### [address] [address] Chips Screen Tender: Kyle Cowan MD MCV (RBC) [Entitic vol] 98.2 fL Normal 82.6-102.9 [facility] Comment on above: Performed By: #### C DP, CP #### [facility] [address] [place] [address] [employer] Screen Tender: Emerson Hall MD #### LIPR #### [address] [address] Ch[employer] Screen Tender: Kyle Cowan MD Monocytes (Bld) [#/Vol] 0.69 10*3/uL Normal 0.10-1.20 [facility] Comment on above: Performed By: #### C DP, CP #### [address] [place] [address] [employer] Screen Tender: Emerson Hall MD #### LIPR #### [address] [address] Ch[employer] Screen Tender: Kyle Cowan MD Monocytes/100 WBC (Bld) 7 % Normal 3-12 [facility] Comment on above: Performed By: #### C DP, CP #### [address] [place] [phone] Ch[employer] Screen Tender: Emerson Hall MD #### LIPR #### [address] [address] Chips Screen Tender: Kyle Cowan MD Neutrophil (Seg) 58 % Normal 36-65 [facility] Comment on above: Performed By: #### C DP, CP #### [address] [place] [place] [address] [employer] Screen Tender: Emerson Hall MD #### LIPR #### [address] [address] Ch[employer] Screen Tender: Kyle Cowan MD NRBC Automated 0.0 per 100 WBC Normal 0.0 [facility] Comment on above: Performed By: #### C DP, CP #### [facility] [address] [place], [place] 0133983 [employer] Screen Tender: Emerson Hall MD #### LIPR #### [address] [address] Ch[employer] Screen Tender: Kyle Cowan MD Platelet mean volume (Bld) [Entitic vol] 9.8 fL Normal 8.1-13.5 [facility] Comment on above: Performed By: #### C DP, CP #### [address] [place] [phone] Ch[employer] Screen Tender: Emerson Hall MD #### LIPR #### [address] [address] [employer] Screen Tender: Kyle Cowan MD Platelets (Bld) [#/Vol] 299 10*3/uL Normal 138-453 [facility] Comment on above: Performed By: #### C DP, CP #### [address] [place], [place] 1787483 [employer] Screen Tender: Emerson Hall MD #### LIPR #### [address] [address] Ch[employer] Screen Tender: Kyle Cowan MD RBC (Bld) [#/Vol] 3.83 10*6/uL Low 3.95-5.11 [facility] Comment on above: Performed By: #### C DP, CP #### [facility] [address] [place] [address] [place], [place] 3772583 [employer] Screen Tender: Emerson Hall MD #### LIPR #### [address] [address] Ch[employer] Screen Tender: Kyle Cowan MD WBC (Bld) [#/Vol] 9.9 10*3/uL Normal 3.5-11.3 [facility] Comment on above: Performed By: #### C DP, CP #### [facility] [address] [place] [address] [place] [address] [employer] Screen Tender: Emerson Hall MD #### LIPR #### [address] [address] Ch[employer] Screen Tender: Kyle Cowan MD Auto Diff Performed NOT REPORTED Normal [facility] Comment on above: Performed By: #### C DP, CP #### [address] [place] [place] [address] [employer] Screen Tender: Emerson Hall MD #### LIPR #### [address] [address] Ch[employer] Screen Tender: Kyle Cowan MD Platelet Comment NOT REPORTED Normal [facility] Comment on above: Performed By: #### C DP, CP #### [address] [place] [place] [address] [employer] Screen Tender: Emerson Hall MD #### LIPR #### [address] [address] [employer] Screen Tender: Kyle Cowan MD RBC morphology finding Nom (Bld) NOT REPORTED Normal [facility] Comment on above: Performed By: #### C DP, CP #### [address] [place] [place] [address] [employer] Screen Tender: Emerson Hall MD #### LIPR #### [address] [address] [employer] Screen Tender: Kyle Cowan MD WBC Morphology NOT REPORTED Normal [facility] Comment on above: Performed By: #### C DP, CP #### [facility] [address] [place] [address] [place]. [place], [place] 7270783 [employer] Screen Tender: Emerson Hall MD #### LIPR #### [address] [place] [address] [employer] Screen Tender: Kyle Cowan MD Comp Metabolic Profon 2021 (cont.) Normal [facility] Comment on above: Result Comment: Aver age GFR for 70 or more years old: 75 mL/min/1.73sq m Chronic Kidney Disease: <60 mL/min/1.73sq m Kidney failure: <15 mL/min/1.73sq m eGFR calculated using average adult body mass. Additional eGFR calculator available at: http://www.[employer]multiple_crcl_2011.htm Performed By: #### C DP, CP #### [address] [place], [place] [phone] [employer] Screen Tender: Emerson Hall MD #### LIPR #### [address] [address] Ch[employer] Screen Tender: Kyle Cowan MD Albumin [Mass/Vol] 4.0 g/dL Normal 3.5-5.2 [facility] Comment on above: Performed By: #### C DP, CP #### [address] [place], [place] 4333783 [employer] Screen Tender: Emerson Hall MD #### LIPR #### [address] [address] Ch[employer] Screen Tender: Kyle Cowan MD Albumin/Glob Ratio 1.5 Normal 1.0-2.5 [facility] Comment on above: Performed By: #### C DP, CP #### [address] [place], [place] [phone] [employer] Screen Tender: Emerson Hall MD #### LIPR #### [address] [address] Ch[employer] Screen Tender: Kyle Cowan MD Alkaline Phos 72 U/L Normal 35-104 [facility] Comment on above: Performed By: #### C DP, CP #### [facility] [address] [place] [address] [employer] Screen Tender: Emerson Hall MD #### LIPR #### [address] [address] Ch[employer] Screen Tender: Kyle Cowan MD ALT [Catalytic activity/Vol] 10 U/L Normal 5-33 [facility] Comment on above: Performed By: #### C DP, CP #### [facility] [address] [place] [address] [employer] Screen Tender: Emerson Hall MD #### LIPR #### [address] [address] Ch[employer] Screen Tender: Kyle Cowan MD Anion gap [Moles/Vol] 11 mmol/L Normal 9-17 [facility] Comment on above: Performed By: #### C DP, CP #### [facility] [address] [place] [address] [place] [address] [employer] Screen Tender: Emerson Hall MD #### LIPR #### [address] [address] [employer] Screen Tender: Kyle Cowan MD AST [Catalytic activity/Vol] 17 U/L Normal <32 [facility] Comment on above: Performed By: #### C DP, CP #### [facility] [address] [place], [place] 4882383 [employer] Screen Tender: Emerson Hall MD #### LIPR #### [address] [address] [employer] Screen Tender: Kyle Cowan MD Bilirubin [Mass/Vol] 0.25 mg/dL Low 0.3-1.2 [facility] Comment on above: Performed By: #### C DP, CP #### [facility] [address] [place], [place] 1272583 [employer] Screen Tender: Emerson Hall MD #### LIPR #### [facility] [address] [place] [address] [employer] Screen Tender: Kyle Cowan MD BUN/CRE Ratio 37 High 9-20 [facility] Comment on above: Performed By: #### C DP, CP #### [facility] [address] [place], [place] 6342983 Chips Screen Tender: Emerson Hall MD #### LIPR #### [address] [address] [place] Screen Tender: Kyle Cowan MD Calcium [Mass/Vol] 9.4 mg/dL Normal 8.6-10.4 [facility] Comment on above: Performed By: #### C DP, CP #### [facility] [address] [place] [address] [employer] Screen Tender: Emerson Hall MD #### LIPR #### [address] [address] [place] Screen Tender: Kyle Cowan MD Chloride [Moles/Vol] 105 mmol/L Normal 98-107 [facility] Comment on above: Performed By: #### C DP, CP #### [facility] [address] [place] [address] [employer] Screen Tender: Emerson Hall MD #### LIPR #### [address] [address] [place] Screen Tender: Kyle Cowan MD CO2 [Moles/Vol] 23 mmol/L Normal 20-31 [facility] Comment on above: Performed By: #### C DP, CP #### [facility] [address] [place] [address] [employer] Screen Tender: Emerson Hall MD #### LIPR #### [address] [address] [place] Screen Tender: Kyle Cowan MD Creatinine [Mass/Vol] 0.51 mg/dL Normal 0.50-0.90 [facility] Comment on above: Performed By: #### C DP, CP #### [facility] [address] [place], [place] [id number] [employer] Screen Tender: Emerson Hall MD #### LIPR #### [address] [address] [place] Screen Tender: Kyle Cowan MD GFR, Amer >60 Normal >60 [facility] Comment on above: Performed By: #### C DP, CP #### [address] [place] [place] [address] [employer] Screen Tender: Emerson Hall MD #### LIPR #### [address] [address] [place] Screen Tender: Kyle Cowan MD GFR,non Amer >60 Normal >60 [facility] Comment on above: Performed By: #### C DP, CP #### [address] [place], [place] [id number] [employer] Screen Tender: Emerson Hall MD #### LIPR #### [address] [address] [place] Screen Tender: Kyle Cowan MD Glucose [Mass/Vol] 97 mg/dL Normal 70-99 [facility] Comment on above: Performed By: #### C DP, CP #### [address] [place] [place] [address] [employer]ips Screen Tender: Emerson Hall MD #### LIPR #### [address] [id number] [place] Screen Tender: Kyle Cowan MD Potassium [Moles/Vol] 4.7 mmol/L Normal 3.7-5.3 [facility] Comment on above: Performed By: #### C DP, CP #### [facility] [address] [place] [address] [address] [place], [place] [id number] [employer] Screen Tender: Emerson Hall MD #### LIPR #### [address] [id number] [place] Screen Tender: Kyle Cowan MD Protein [Mass/Vol] 6.6 g/dL Normal 6.4-8.3 [facility] Comment on above: Performed By: #### C DP, CP #### [address] [place], [place] [id number] Chips Screen Tender: Emerson Hall MD #### LIPR #### [address] [address] [place] Screen Tender: Kyle Cowan MD Sodium [Moles/Vol] 139 mmol/L Normal 135-144 [facility] Comment on above: Performed By: #### C KOLBY, CP #### [address] [place], [place] [id number] Chips Screen Tender: Emerson Hall MD #### LIPR #### [address] [address] [place]ips Screen Tender: Kyle Cowan MD Staging: Normal [facility] Comment on above: Result Comment: Stag e 1: Some kidney damage normal GFR Stage 2: Mild kidney damage GFR 60-89 Stage 3: Moderate kidney damage GFR 30-59 Stage 4: Severe kidney damage GFR 15-29 Stage 5: Severe kidney damage GFR <15 ESRD - chronic treatment by dialysis or transplant Performed By: #### C DP, CP #### [address] [place], [place] [address] Chips Screen Tender: Emerson Hall MD #### LIPR #### [facility] [address] [place], [place] [id number] Chips Screen Tender: Kyle Cowan MD Urea nitrogen [Mass/Vol] 19 mg/dL Normal 8-23 [facility] Comment on above: Performed By: #### C DP, CP #### [facility] [address] [place] [address] Chips Screen Tender: Emerson Hall MD #### LIPR #### [address] [place] [address] Chips Screen Tender: Kyle Cowan MD Lipid Profileon 04-28-2021 Cholesterol,VLDL NOT REPORTED Normal 05-09 [facility] Comment on above: Performed By: #### C DP, CP #### [address] [place] [place] [address] Chips Screen Tender: Emerson Hall MD #### LIPR #### [address] [place], [place] [id number] Chips Screen Tender: Kyle Cowan MD Cult,Bloodon 10-25-2020 Cult,Blood Specimen Description .BLOOD Special Requests R AC 14ML Culture NO GROWTH 6 DAYS Report Status FINAL 10/25/2020 Normal [facility] Comment on above: Performed By: #### B C #### [address] [place] [address] Chips Screen Tender: Emerson Hall MD Cult,Blood Specimen Description .BLOOD Special Requests L HAND 2ML Culture NO GROWTH 6 DAYS Report Status FINAL 10/25/2020 Normal [facility] Comment on above: Performed By: #### B C #### [facility] [address] [place] [address] Chips Screen Tender: Emerson Hall MD CBCon 10-20-2020 Erythrocyte distribution width (RBC) [Ratio] 12.3 % Normal 11.8-14.4 [facility] Comment on above: Performed By: #### B C #### [address] [place] [address] Chips Screen Tender: Emerson Hall MD Hematocrit (Bld) [Volume fraction] 34.0 % Low 36.3-47.1 [facility] Comment on above: Performed By: #### B C #### [address] [place], [facility] Chips Screen Tender: Emerson Hall MD Hemoglobin (Bld) [Mass/Vol] 11.3 g/dL Low 11.9-15.1 [facility] Comment on above: Performed By: #### B C #### [address] [place] [address] Chips Screen Tender: Emerson Hall MD MCH (RBC) [Entitic mass] 31.5 pg Normal 25.2-33.5 [facility] Comment on above: Performed By: #### B C #### [address] [place], [facility] Chips Screen Tender: Emerson Hall MD MCHC (RBC) [Mass/Vol] 33.2 g/dL Normal 28.4-34.8 [facility] Comment on above: Performed By: #### B C #### [address] [place], [facility] Chips Screen Tender: Emerson Hall MD MCV (RBC) [Entitic vol] 94.7 fL Normal 82.6-102.9 [facility] Comment on above: Performed By: #### B C #### [address] [place] [address] Chips Screen Tender: Emerson Hall MD NRBC Automated 0.0 per 100 WBC Normal 0.0 [facility] Comment on above: Performed By: #### B C #### [address] [place], [facility] Chips Screen Tender: Emerson Hall MD Platelet mean volume (Bld) [Entitic vol] 8.9 fL Normal 8.1-13.5 [facility] Comment on above: Performed By: #### B C #### [facility] [address] [place] [address] Chips Screen Tender: Emerson Hall MD Platelets (Bld) [#/Vol] 191 10*3/uL Normal 138-453 [facility] Comment on above: Performed By: #### B C #### [facility] [address] [place] [address] Chips Screen Tender: Emerson Hall MD RBC (Bld) [#/Vol] 3.59 10*6/uL Low 3.95-5.11 [facility] Comment on above: Performed By: #### B C #### [facility] [address] [place], [place] [phone] Chips Screen Tender: Emerson Hall MD WBC (Bld) [#/Vol] 8.5 10*3/uL Normal 3.5-11.3 [facility] Comment on above: Performed By: #### B C #### [facility] [address] [place] [address] Chips Screen Tender: Emerson Hall MD CBCOrdered By: Casandra Cerda on 10-20-2020 Hematocrit (Bld) [Volume fraction] 34.0 % Low 36.3 - 47.1 % [facility] [employer] Phone: Hemoglobin.gastrointes tinal spec 1 Ql (Stl) 11.3 g/dL Low 11.9 - 15.1 g/dL [employer] Phone: Interpretation and review of laboratory results Abnormal [employer] Phone: MCH (RBC) [Entitic mass] 31.5 pg 25.2 - 33.5 pg [employer] Phone: MCHC (RBC) [Mass/Vol] 33.2 g/dL 28.4 - 34.8 g/dL [employer] Phone: MCV (RBC) [Entitic vol] 94.7 fL 82.6 - 102.9 fL [employer] Phone: NRBC Automated 0.0 0.0 per 100 WBC [employer] Phone: Platelet distribution width (Bld) [Ratio] 12.3 % 11.8 - 14.4 % [employer] Phone: Platelet mean volume (Bld) [Entitic vol] 8.9 fL 8.1 - 13.5 fL [employer] Phone: Platelets (Bld) [#/Vol] 191 10*3/uL [employer] Phone: RBC (Bld) [#/Vol] 3.59 10*6/uL Low 3.95 - 5.1 1 m/uL [employer] Work Phone: WBC (Bld) [#/Vol] 8.5 10*3/uL [employer] Phone: [employer] Phone: CBC Auto DifferentialOrdered By: Radu Worrell on 10-20-2020 Absolute Eos # 0.27 [facility] Work Phone: Comment on above: CORRECTED ON 10/20 A T 0933: PREVIOUSLY REPORTED 0.54 Absolute Immature Granulocyte 0.00 [employer] Work Phone: Absolute Lymph # 4.86 High [facility] Work Phone: Comment on above: CORRECTED ON 10/20 A T 0933: PREVIOUSLY REPORTED 3.11 Absolute Alcorn # 1.08 High [facility] Work Phone: Comment on above: CORRECTED ON 10/20 A T 0933: PREVIOUSLY REPORTED 0.54 Basophils (Bld) [#/Vol] 0.14 10*3/uL [employer] Phone: Comment on above: CORRECTED ON 10/20 A T 0933: PREVIOUSLY REPORTED 0.00 Basophils/100 WBC (Bld) 1 % 0 - 2 % [employer] Phone: Comment on above: CORRECTED ON 10/20 A T 0933: PREVIOUSLY REPORTED 0 Differential Type NOT REPORTED [employer] Phone: Eosinophils/100 WBC (Bld) 2 % 1 - 4 % [employer] Phone: Comment on above: CORRECTED ON 10/20 A T 0933: PREVIOUSLY REPORTED 4 Hematocrit (Bld) [Volume fraction] 36.4 % 36.3 - 47.1 % [employer] Phone: Hemoglobin.gastrointes tinal spec 1 Ql (Stl) 12.1 g/dL 11.9 - 15.1 g/dL [employer] Phone: Immature granulocytes/100 WBC (Bld) 0 % 0 [facility] Phone: Interpretation and review of laboratory results Abnormal [employer] Phone: Lymphocytes/100 WBC (Bld) 36 % 24 - 44 % [employer] Phone: Comment on above: CORRECTED ON 10/20 A T 0933: PREVIOUSLY REPORTED 23 MCH (RBC) [Entitic mass] 31.0 pg 25.2 - 33.5 pg [employer] Phone: MCHC (RBC) [Mass/Vol] 33.2 g/dL 28.4 - 34.8 g/dL [employer] Phone: MCV (RBC) [Entitic vol] 93.3 fL 82.6 - 102.9 fL [employer] Phone: Monocytes/100 WBC (Bld) 8 % High 1 - 7 % [employer] Phone: Comment on above: CORRECTED ON 10/20 A T 0933: PREVIOUSLY REPORTED 4 Morphology Elliott (Bld) [Interp] Normal [employer] Work Phone: nRBC 0 0 per 100 WBC [employer] Work Phone: Comment on above: CORRECTED ON 10/20 A T 0933: PREVIOUSLY REPORTED 9 NRBC Automated 0.0 0.0 per 100 WBC [employer] Phone: Platelet distribution width (Bld) [Ratio] 12.3 % 11.8 - 14.4 % [employer] Work Phone: Platelet Estimate NOT REPORTED [employer] Work Phone: Platelet mean volume (Bld) [Entitic vol] 9.3 fL 8.1 - 13.5 fL [employer] Phone: Platelets (Bld) [#/Vol] 281 10*3/uL [employer] Phone: RBC (Bld) [#/Vol] 3.90 10*6/uL Low 3.95 - 5.1 1 m/uL [employer] Work Phone: RBC (Bld) [#/Vol] NOT REPORTED [employer] Phone: Seg Neutrophils 53 % 36 - 66 % [facility] Work Phone: Comment on above: CORRECTED ON 10/20 A T 0933: PREVIOUSLY REPORTED 69 Segs Absolute 7.15 [facility] Work Phone: Comment on above: CORRECTED ON 10/20 A T 0933: PREVIOUSLY REPORTED 9.31 WBC (Bld) [#/Vol] 13.5 10*3/uL High [employer] Work Phone: WBC (Bld) [#/Vol] NOT REPORTED [employer] Work Phone: [employer] Work Phone: CBC with Diffon 10-20-2020 Abs. Basophil 0.14 k/uL Normal 0.0-0.2 [facility] Comment on above: Result Comment: GIOVANA ECTED ON 10/20 AT 0933: PREVIOUSLY REPORTED 0.00 Performed By: #### B C #### [facility] [address] [place] [address] [place] [address] Chips Screen Tender: Emerson Hall MD Abs.Neutrophil (Seg) 7.15 k/uL Normal 1.8-7.7 [facility] Comment on above: Result Comment: GIOVANA ECTED ON 10/20 AT 0933: PREVIOUSLY REPORTED 9.31 Performed By: #### B C #### [address] [place], [place] [id number] Chips Screen Tender: Emerson Hall MD Basophils/100 WBC (Bld) 1 % Normal 0-2 [facility] Comment on above: Result Comment: GIOVANA ECTED ON 10/20 AT 0933: PREVIOUSLY REPORTED 0 Performed By: #### B C #### [address] [place] [place] [address] Chips Screen Tender: Emerson Hall MD Eosinophils (Bld) [#/Vol] 0.27 10*3/uL Normal 0.0-0.4 [facility] Comment on above: Result Comment: GIOVANA ECTED ON 10/20 AT 0933: PREVIOUSLY REPORTED 0.54 Performed By: #### B C #### [address] [place] [address] [employer]ips Screen Tender: Emerson Hall MD Eosinophils/100 WBC (Bld) 2 % Normal 1-4 [facility] Comment on above: Result Comment: GIOVANA ECTED ON 10/20 AT 0933: PREVIOUSLY REPORTED 4 Performed By: #### B C #### [address] [place] [place] [address] Chips Screen Tender: Emerson Hall MD Lymphocytes (Bld) [#/Vol] 4.86 10*3/uL High 1.0-4.8 [facility] Comment on above: Result Comment: GIOVANA ECTED ON 10/20 AT 0933: PREVIOUSLY REPORTED 3.11 Performed By: #### B C #### [facility] [address] [place], [place] [phone] Chips Screen Tender: Emerson Hall MD Lymphocytes/100 WBC (Bld) 36 % Normal 24-44 [facility] Comment on above: Result Comment: GIOVANA ECTED ON 10/20 AT 0933: PREVIOUSLY REPORTED 23 Performed By: #### B C #### [facility] [address] [place], [place] [phone] Chips Screen Tender: Emerson Hall MD Monocytes (Bld) [#/Vol] 1.08 10*3/uL High 0.1-0.8 [facility] Comment on above: Result Comment: GIOVANA ECTED ON 10/20 AT 09: PREVIOUSLY REPORTED 0.54 Performed By: #### B C #### [facility] [address] [place], [place] [address] Chips Screen Tender: Emerson Hall MD Monocytes/100 WBC (Bld) 8 % High 1-7 [facility] Comment on above: Result Comment: GIOVANA ECTED ON 10/20 AT 09: PREVIOUSLY REPORTED 4 Performed By: #### B C #### [address] [place] [address] Chips Screen Tender: Emerson Hall MD Neutrophil (Seg) 53 % Normal 36-66 [facility] Comment on above: Result Comment: GIOVANA ECTED ON 10/20 AT 09: PREVIOUSLY REPORTED 69 Performed By: #### B C #### [facility] [address] [place] [address] Chips Screen Tender: Emerson Hall MD Nucleated RBC'S 0 per 100 WBC Normal 0 [facility] Comment on above: Result Comment: GIOVANA ECTED ON 10/20 AT 0933: PREVIOUSLY REPORTED 9 Performed By: #### B C #### [facility] [address] [place] [address] Chips Screen Tender: Emerson Hall MD Comp Metabolic Pr/rfx MGon 0 10-20-2020 (cont.) Normal [facility] Comment on above: Result Comment: Aver age GFR for 70 or more years old: 75 mL/min/1.73sq m Chronic Kidney Disease: <60 mL/min/1.73sq m Kidney failure: <15 mL/min/1.73sq m eGFR calculated using average adult body mass. Additional eGFR calculator available at: http://www.[employer]multiple_crcl_2012.htm Performed By: #### B C #### [facility] [address] [place] [address] [place] [address] Chips Screen Tender: Emerson Hall MD Albumin [Mass/Vol] 3.1 g/dL Low 3.5-5.2 [facility] Comment on above: Performed By: #### B C #### [facility] [address] [place] [address] [employer]ips Screen Tender: Emerson Hall MD Albumin/Glob Ratio 1.2 Normal 1.0-2.5 [facility] Comment on above: Performed By: #### B C #### [facility] [address] [place], [place] [id number] Chips Screen Tender: Emerson Hall MD Alkaline Phos 64 U/L Normal 35-104 [facility] Comment on above: Performed By: #### B C #### [facility] [address] [place], [place] [phone] Chips Screen Tender: Emerson Hall MD ALT [Catalytic activity/Vol] 7 U/L Normal 5-33 [facility] Comment on above: Performed By: #### B C #### [facility] [address] [place] [address] Chips Screen Tender: Emerson Hall MD Anion gap [Moles/Vol] 10 mmol/L Normal 9-17 [facility] Comment on above: Performed By: #### B C #### [facility] [address] [place], [place] [address] Chips Screen Tender: Emerson Hall MD AST [Catalytic activity/Vol] 13 U/L Normal <32 [facility] Comment on above: Performed By: #### B C #### [facility] [address] [place], [place] [address] [employer]ips Screen Tender: Emerson Hall MD Bilirubin [Mass/Vol] 0.17 mg/dL Low 0.3-1.2 [facility] Comment on above: Performed By: #### B C #### [facility] [address] [place], [place] [address] Chips Screen Tender: Emerson Hall MD BUN/CRE Ratio 20 Normal 9-20 [facility] Comment on above: Performed By: #### B C #### [facility] [address] [place], [place] [address] Chips Screen Tender: Emerson Hall MD Calcium [Mass/Vol] 8.6 mg/dL Normal 8.6-10.4 [facility] Comment on above: Performed By: #### B C #### [facility] [address] [place], [place] [address] Chips Screen Tender: Emerson Hall MD Chloride [Moles/Vol] 103 mmol/L Normal 98-107 [facility] Comment on above: Performed By: #### B C #### [facility] [address] [place], [place] [address] Ch[employer] Screen Tender: Emerson Hall MD CO2 [Moles/Vol] 22 mmol/L Normal 20-31 [facility] Comment on above: Performed By: #### B C #### [facility] [address] [place], [place] [address] Chips Screen Tender: mEerson Hall MD Creatinine [Mass/Vol] 0.61 mg/dL Normal 0.50-0.90 [facility] Comment on above: Performed By: #### B C #### [facility] [address] [place], [place] [address] Chips Screen Tender: Emerson Hall MD GFR, Amer >60 Normal >60 [facility] Comment on above: Performed By: #### B C #### [facility] [address] [place], [place] [address] Chips Screen Tender: Emerson Hall MD GFR,non Amer >60 Normal >60 [facility] Comment on above: Performed By: #### B C #### [facility] [address] [place], [place] [address] Chips Screen Tender: Emerson Hall MD Glucose [Mass/Vol] 91 mg/dL Normal 70-99 [facility] Comment on above: Performed By: #### B C #### [facility] [address] [place], [place] [address] Chips Screen Tender: Emerson Hall MD Potassium [Moles/Vol] 4.5 mmol/L Normal 3.7-5.3 [facility] Comment on above: Performed By: #### B C #### [facility] [address] [place], [place] [address] Chips Screen Tender: Emerson Hall MD Protein [Mass/Vol] 5.6 g/dL Low 6.4-8.3 [facility] Comment on above: Performed By: #### B C #### [facility] [address] [place] [address] Chips Screen Tender: Emerson Hall MD Sodium [Moles/Vol] 135 mmol/L Normal 135-144 [facility] Comment on above: Performed By: #### B C #### [facility] [address] [place], [place] [address] Chips Screen Tender: Emerson Hall MD Staging: Normal [facility] Comment on above: Result Comment: Stag e 1: Some kidney damage normal GFR Stage 2: Mild kidney damage GFR 60-89 Stage 3: Moderate kidney damage GFR 30-59 Stage 4: Severe kidney damage GFR 15-29 Stage 5: Severe kidney damage GFR <15 ESRD - chronic treatment by dialysis or transplant Performed By: #### B C #### [facility] [address] [place] [address] Chips Screen Tender: Emerson Hall MD Urea nitrogen [Mass/Vol] 12 mg/dL Normal 8- [facility] Comment on above: Performed By: #### B C #### [facility] [address] [place] [address] Chips Screen Tender: Emerson Hall MD Comprehensive Metabolic Pane l w/ Reflex to MGOrdered By: Casandra Cerda on 10-20-2020 Albumin [Mass/Vol] 3.1 g/dL Low 3.5 - 5.2 g/dL [employer] Phone: Albumin/Globulin [Mass ratio] 1.2 {ratio} [employer] Phone: ALP (Bld) [Catalytic activity/Vol] 64 U/L 35 - 104 U/L [facility] Phone: ALT [Catalytic activity/Vol] 7 U/L 5 - 33 U/L [facility] Phone: Anion gap [Moles/Vol] 10 mmol/L 9 - 17 mmol/L [facility] Phone: AST [Catalytic activity/Vol] 13 U/L <32 [employer] Phone: Bilirubin [Mass/Vol] 0.17 mg/dL Low 0.3 - 1 .2 mg/dL [facility] Phone: Calcium [Mass/Vol] 8.6 mg/dL 8.6 - 10. 4 mg/dL [employer] Phone: Chloride [Moles/Vol] 103 mmol/L 98 - 10 7 mmol/L [employer] Phone: CO2 [Moles/Vol] 22 mmol/L 20 - 31 mmol/L [facility] Phone: Creatinine [Mass/Vol] 0.61 mg/dL 0.50 - 0.90 mg/dL [employer] Phone: Free PSA/Total PSA [Mass fraction] 5.6 g/dL Low 6.4 - 8.3 g/dL [facility] Phone: GFR >60 >60 mL/min [employer] Phone: GFR Non- >60 >60 mL/min [facility] Phone: Glucose [Mass/Vol] 91 mg/dL 70 - 99 mg/dL [facility] Phone: Interpretation and review of laboratory results Abnormal [employer] Phone: Potassium [Moles/Vol] 4.5 mmol/L 3.7 - 5.3 mmol/L [facility] Phone: Sodium [Moles/Vol] 135 mmol/L 135 - 144 mmol/L [facility] Phone: Urea nitrogen (BldV) [Mass/Vol] 12 mg/dL 8 - 23 mg/dL [facility] Phone: Urea nitrogen/Creatinine (Bld) [Mass ratio] 20 [facility] Phone: [facility] Phone: Keppraon 10-20-2020 KEPP 19 ug/mL Normal [facility] Comment on above: Result Comment: A reference [...] known. Performed By: #### K EPPRA #### [employer] [address] [place] [address] Chips Screen Tender: Kyle Cowan MD Laboratory - Chemistry and C hemistry - challengeOrdered By: Casandra Cerda on 10-20-2020 GFR/1.73 sq M.predicted MDRD (S/P/Bld) [Vol rate/Area] [employer] Phone: Comment on above: Average GFR for 70 o r more years old: 75 mL/min/1.73sq m Chronic Kidney Disease: <60 mL/min/1.73sq m Kidney failure: <15 mL/min/1.73sq m eGFR calculated using average adult body mass. Additional eGFR calculator available at: http://www.[employer]multiple_crcl_2012.htm Stage 1: Some kidney damage normal GFR Stage 2: Mild kidney damage GFR 60-89 Stage 3: Moderate kidney damage GFR 30-59 Stage 4: Severe kidney damage GFR 15-29 Stage 5: Severe kidney damage GFR <15 ESRD - chronic treatment by dialysis or transplant Levetiracetam LevelOrdered B y: Casandra Cerda on 10-20-2020 Levetiracetam Lvl 19 ug/mL [employer] Work Phone: Comment on above: A reference [...] serum concentrations and toxicity is not known. [facility] Phone: Blood Gas, VenousOrdered By: Radu Worrell on 10-19-2020 Arthur Test NOT REPORTED [facility] Phone: Carboxyhemoglobin NOT REPORTED 0.0 - 5.0 % [facility] Work Phone: Comment on above: FIO2 NOT REPORTED [facility] Work Phone: HCO3 (Bld) [Moles/Vol] 28 mmol/L 24.0 - 30.0 mmol/L [facility] Work Phone: Interpretation and review of laboratory results Abnormal [facility] Work Phone: Methemoglobin NOT REPORTED 0.0 - 1.9 % [facility] Work Phone: Mode NOT REPORTED [facility] Work Phone: Negative Base Excess, Moncho NOT REPORTED 0.0 - 2.0 mmol/L [facility] Work Phone: NOTIFICATION NOT REPORTED [facility] Work Phone: NOTIFICATION TIME NOT REPORTED [facility] Work Phone: O2 Device/Flow/% NOT REPORTED [facility] Work Phone: Oxygen saturation in Blood 39.6 % Low 60.0 - 85.0 % [facility] Work Phone: Oxyhemoglobin NOT REPORTED 95.0 - 98.0 % [facility] Work Phone: pCO2, Moncho 52.9 [facility] Work Phone: pCO2, Moncho, Temp Adj NOT REPORTED [facility] Work Phone: Peep/Cpap NOT REPORTED [facility] Work Phone: pH, Moncho 7.342 [facility] Work Phone: pH, Moncho, Temp Adj NOT REPORTED [facility] Work Phone: pO2, Moncho 24.4 Low [facility] Work Phone: pO2, Moncho, Temp Adj NOT REPORTED [facility] [employer] Work Phone: Positive Base Excess, Moncho 1.2 mmol/L 0.0 - 2.0 mmol/L [facility] Phone: PSV NOT REPORTED [facility] Phone: Pt Temp 37.0 [facility] Phone: Pt. Position NOT REPORTED [employer] Work Phone: Respiratory Rate NOT REPORTED [employer] Phone: Sample Site NOT REPORTED [facility] Work Phone: Set Rate NOT REPORTED [facility] Phone: Text for Respiratory DRAWN PER ED RN [facility] Phone: Total Hb NOT REPORTED 12.0 - 16.0 g/dl [facility] Phone: Total Rate NOT REPORTED [employer] Phone: [place] NOT REPORTED [facility] Phone: [employer] Phone: Brain Natri. Peptideon 10-19 BNP Interpretation Pro-BNP Reference Range: Normal [facility] Comment on above: Result Comment: Rule Out: <300 [place]orne Zone: Age <50 300-450 Age 50-75 300-900 Age >75 300-1800 Usually represents mild to moderate HF but other cardiopulmonary causes cannot be ruled out. Rule In: Age <50 >450 Age 50-75 >900 Age >75 >1800 Performed By: #### B C #### [facility] [address] [place] [address] Ch[employer] Screen Tender: Emerson Hall MD Natriuretic peptide B (Bld) [Mass/Vol] 158 pg/mL Normal <300 [facility] Comment on above: Result Comment: Pro- BNP results cannot be compared to BNP results. Performed By: #### B C #### [facility] [address] [place] [address] Ch[employer] Screen Tender: Emerson Hall MD Brain Natriuretic PeptideOrd ered By: Radu Worrell on 10-19-2020 BNP Interpretation Pro-BNP Reference Range: [facility] Phone: Comment on above: Rule Out: <300 [place]orne Zone: Age <50 300-450 Age 50-75 300-900 Age >75 300-1800 Usually represents mild to moderate HF but other cardiopulmonary causes cannot be ruled out. Rule In: Age <50 >450 Age 50-75 >900 Age >75 >1800 Natriuretic peptide B (Bld) [Mass/Vol] 158 pg/mL <300 [employer] Phone: Comment on above: Pro-BNP results liana ot be compared to BNP results. CBC with Diffon 10-19-2020 Abs.Imm.Granulocyte 0.00 k/uL Normal 0.00-0.30 [facility] Comment on above: Performed By: #### B C #### [facility] [address] [place] [address] [place] [address] Ch[employer] Screen Tender: Emerson Hall MD Immature granulocytes/100 WBC (Bld) 0 % Normal 0 [facility] Comment on above: Performed By: #### B C #### [facility] [address] [place] [address] Chips Screen Tender: Emerson Hall MD Morphology Elliott (Bld) [Interp] Normal Normal [facility] Comment on above: Performed By: #### B C #### [facility] [address] [place] [address] Dr. [place], [facility] Chips Screen Tender: Emerson Hall MD Erythrocyte distribution width (RBC) [Ratio] 12.3 % Normal 11.8-14.4 [facility] Comment on above: Performed By: #### B C #### [facility] [address] [place] [address] Chips Screen Tender: Emerson Hall MD Hematocrit (Bld) [Volume fraction] 36.4 % Normal 36.3-47.1 [facility] Comment on above: Performed By: #### B C #### [facility] [address] [place] [address] Ch[employer] Screen Tender: Emerson Hall MD Hemoglobin (Bld) [Mass/Vol] 12.1 g/dL Normal 11.9-15.1 [facility] Comment on above: Performed By: #### B C #### [address] [place] [address] Chips Screen Tender: Emerson Hall MD MCH (RBC) [Entitic mass] 31.0 pg Normal 25.2-33.5 [facility] Comment on above: Performed By: #### B C #### [address] [place] [address] Chips Screen Tender: Emerson Hall MD MCHC (RBC) [Mass/Vol] 33.2 g/dL Normal 28.4-34.8 [facility] Comment on above: Performed By: #### B C #### [address] [place], [place] [id number] [employer] Screen Tender: Emerson Hall MD MCV (RBC) [Entitic vol] 93.3 fL Normal 82.6-102.9 [facility] Comment on above: Performed By: #### B C #### [address] [place], [place] [id number] Ch[employer] Screen Tender: Emerson Hall MD NRBC Automated 0.0 per 100 WBC Normal 0.0 [facility] Comment on above: Performed By: #### B C #### [facility] [address] [place] [address] [place] [address] Chips Screen Tender: Emerson Hall MD Platelet mean volume (Bld) [Entitic vol] 9.3 fL Normal 8.1-13.5 [facility] Comment on above: Performed By: #### B C #### [address] [place] [address] Chips Screen Tender: Emerson Hall MD Platelets (Bld) [#/Vol] 281 10*3/uL Normal 138-453 [facility] Comment on above: Performed By: #### B C #### [facility] [address] [place], [place] [id number] Ch[employer] Screen Tender: Emerson Hall MD RBC (Bld) [#/Vol] 3.90 10*6/uL Low 3.95-5.11 [facility] Comment on above: Performed By: #### B C #### [facility] [address] [place] [address] Ch[employer] Screen Tender: Emerson Hall MD WBC (Bld) [#/Vol] 13.5 10*3/uL High 3.5-11.3 [facility] Comment on above: Performed By: #### B C #### [facility] [address] [place] [address] Dr. [place], [place] [address] Chips Screen Tender: Emerson Hall MD Auto Diff Performed NOT REPORTED Normal [facility] Comment on above: Performed By: #### B C #### [facility] [address] [place] [address] Dr. [place], [place] [address] Chips Screen Tender: Emerson Hall MD Platelet Estimate NOT REPORTED Normal [facility] Comment on above: Performed By: #### B C #### [facility] [address] [place] [address] Dr. [place], [facility] Chips Screen Tender: Emerson Hall MD RBC morphology finding Nom (d) NOT REPORTED Normal [facility] Comment on above: Performed By: #### B C #### [facility] [address] [place], [facility] Chips Screen Tender: Emerson Hall MD WBC Morphology NOT REPORTED Normal [facility] Comment on above: Performed By: #### B C #### [facility] [address] [place], [place] [id number] Chips Screen Tender: Emerson Hall MD CT HEAD WO CONTRASTon [...] Amina Lamas DO 10/19/20 Final result Normal [facility] CT Head WO ContrastOrdered B y: Izzy Parul on 10-19-2020 No acute intracrania l abnormality. 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 Critical results were called by Dr. Amina Lamas to ANN Dyson on 10/19/2020 at 18:14. [facility] [employer] Work Phone: EXAMINATION: CT OF T HE [...] of the visualized skull or soft tissues. [employer] Work Phone: Romero, pn Incoming Radiant Results From [employer] - 10/19/2020 6:20 PM EDT EXAMINATION: CT [...] to ANN Dyson on 10/19/2020 at 18:14. [facility] Work Phone: [facility] Work Phone: Comp Metabolic Pr/rfx MGon 0 10-19-2020 (cont.) Normal [facility] Comment on above: Result Comment: Aver age GFR for 70 or more years old: 75 mL/min/1.73sq m Chronic Kidney Disease: <60 mL/min/1.73sq m Kidney failure: <15 mL/min/1.73sq m eGFR calculated using average adult body mass. Additional eGFR calculator available at: http://www.[employer]/multiple_crcl_2012.htm Performed By: #### B C #### [address] [place] [address] Chips Screen Tender: Emerson Hall MD Albumin [Mass/Vol] 3.7 g/dL Normal 3.5-5.2 [facility] Comment on above: Performed By: #### B C #### [facility] [address] [place] [address] Ch[employer] Screen Tender: Emerson Hall MD Albumin/Glob Ratio 1.3 Normal 1.0-2.5 [facility] Comment on above: Performed By: #### B C #### [address] [place] [address] [employer] Screen Tender: Emerson Hall MD Alkaline Phos 69 U/L Normal 35-104 [facility] Comment on above: Performed By: #### B C #### [facility] [address] [place], [place] [address] Ch[employer] Screen Tender: Emerson Hall MD ALT [Catalytic activity/Vol] 8 U/L Normal 5-33 [facility] Comment on above: Performed By: #### B C #### [facility] [address] [place], [place] [id number] [employer] Screen Tender: Emerson Hall MD Anion gap [Moles/Vol] 13 mmol/L Normal 9-17 [facility] Comment on above: Performed By: #### B C #### [facility] [address] [place], [place] [address] Ch[employer] Screen Tender: Emerson Hall MD AST [Catalytic activity/Vol] 16 U/L Normal <32 [facility] Comment on above: Performed By: #### B C #### [facility] [address] [place], [place] [address] Ch[employer] Screen Tender: Emerson Hall MD Bilirubin [Mass/Vol] 0.30 mg/dL Normal 0.3-1.2 [facility] Comment on above: Performed By: #### B C #### [facility] [address] [place], [place] [id number] Ch[employer] Screen Tender: Emerson Hall MD BUN/CRE Ratio 18 Normal 9-20 [facility] Comment on above: Performed By: #### B C #### [facility] [address] [place], [place] [address] Ch[employer] Screen Tender: Emerson Hall MD Calcium [Mass/Vol] 9.1 mg/dL Normal 8.6-10.4 [facility] Comment on above: Performed By: #### B C #### [facility] [address] [place], [place] [address] [employer] Screen Tender: Emerson Hall MD Chloride [Moles/Vol] 101 mmol/L Normal 98-107 [facility] Comment on above: Performed By: #### B C #### [facility] [address] [place], [place] [id number] Ch[employer] Screen Tender: Emerson Hall MD CO2 [Moles/Vol] 23 mmol/L Normal 20-31 [facility] Comment on above: Performed By: #### B C #### [facility] [address] [place], [place] [phone] [employer] Screen Tender: Emerson Hall MD Creatinine [Mass/Vol] 0.91 mg/dL High 0.50-0.90 [facility] Comment on above: Performed By: #### B C #### [facility] [address] [place], [place] [address] [employer] Screen Tender: Emerson Hall MD GFR, Amer >60 Normal >60 [facility] Comment on above: Performed By: #### B C #### [facility] [address] [place] [address] Chips Screen Tender: Emerson Hall MD GFR,non Amer 59 mL/min Low >60 [facility] Comment on above: Performed By: #### B C #### [facility] [address] [place] [address] Chips Screen Tender: Emerson Hall MD Glucose [Mass/Vol] 137 mg/dL High 70-99 [facility] Comment on above: Performed By: #### B C #### [facility] [address] [place] [address] Ch[employer] Screen Tender: Emerson Hall MD Potassium [Moles/Vol] 3.9 mmol/L Normal 3.7-5.3 [facility] Comment on above: Performed By: #### B C #### [facility] [address] [place], [place] [address] [employer] Screen Tender: Emerson Hall MD Protein [Mass/Vol] 6.6 g/dL Normal 6.4-8.3 [facility] Comment on above: Performed By: #### B C #### [facility] [address] [place] [address] Chips Screen Tender: Emerson Hall MD Sodium [Moles/Vol] 137 mmol/L Normal 135-144 [facility] Comment on above: Performed By: #### B C #### [facility] [address] [place] [address] Chips Screen Tender: Emerson Hall MD Staging: Normal [facility] Comment on above: Result Comment: Stag e 1: Some kidney damage normal GFR Stage 2: Mild kidney damage GFR 60-89 Stage 3: Moderate kidney damage GFR 30-59 Stage 4: Severe kidney damage GFR 15-29 Stage 5: Severe kidney damage GFR <15 ESRD - chronic treatment by dialysis or transplant Performed By: #### B C #### [facility] [address] [place] [address] [place] [address] Chips Screen Tender: Emerson Hall MD Urea nitrogen [Mass/Vol] 16 mg/dL Normal 8-23 [facility] Comment on above: Performed By: #### B C #### [facility] [address] [place] [address] [place] [address] Chips Screen Tender: Emerson Hall MD Comprehensive Metabolic Pane l w/ Reflex to MGOrdered By: Radu Worrell on 10-19-2020 Albumin [Mass/Vol] 3.7 g/dL 3.5 - 5.2 g/dL [facility] Phone: Albumin/Globulin [Mass ratio] 1.3 {ratio} [facility] Phone: ALP (Bld) [Catalytic activity/Vol] 69 U/L 35 - 104 U/L [facility] Phone: ALT [Catalytic activity/Vol] 8 U/L 5 - 33 U/L [facility] Phone: Anion gap [Moles/Vol] 13 mmol/L 9 - 17 mmol/L [facility] Phone: AST [Catalytic activity/Vol] 16 U/L <32 [facility] Phone: Bilirubin [Mass/Vol] 0.30 mg/dL 0.3 - 1 .2 mg/dL [facility] Phone: Calcium [Mass/Vol] 9.1 mg/dL 8.6 - 10. 4 mg/dL [facility] Phone: Chloride [Moles/Vol] 101 mmol/L 98 - 10 7 mmol/L [facility] Phone: CO2 [Moles/Vol] 23 mmol/L 20 - 31 mmol/L [facility] Phone: Creatinine [Mass/Vol] 0.91 mg/dL High 0.50 - 0.90 mg/dL [facility] Phone: Free PSA/Total PSA [Mass fraction] 6.6 g/dL 6.4 - 8.3 g/dL [facility] Phone: GFR >60 >60 mL/min [employer] Phone: GFR Non- 59 mL/min Low >60 [facility] Phone: Glucose [Mass/Vol] 137 mg/dL High 70 - 99 mg/dL [facility] Phone: Interpretation and review of laboratory results Abnormal [facility] Phone: Potassium [Moles/Vol] 3.9 mmol/L 3.7 - 5.3 mmol/L [facility] Phone: Sodium [Moles/Vol] 137 mmol/L 135 - 144 mmol/L [employer] Phone: Urea nitrogen (BldV) [Mass/Vol] 16 mg/dL 8 - 23 mg/dL [facility] Phone: Urea nitrogen/Creatinine (Bld) [Mass ratio] 18 [facility] Phone: EKG 12 LeadOrdered By: Katy Worrell on 10-19-2020 Atrial Rate 50 BPM [facility] Phone: P Red [place] 23 degrees [employer] Phone: P-R Interval 152 ms [facility] Phone: Q-T Interval 480 ms [facility] Phone: QRS Duration 90 ms [facility] Phone: QTc Calculation (Bazett) 437 ms [employer] Phone: R Red [place] 7 degrees [employer] Phone: T Red [place] 42 degrees [employer] Phone: Ventricular Rate 50 BPM 66. com Phone: Sinus bradycardia Possible Anterior infarct , age undetermined Abnormal ECG When compared with ECG of 03-AUG-2020 09:21, No significant change was found Confirmed by JOSE RAMOS ([id number]) on 10/19/2020 10:36:19 PM [facility] Phone: Romero, [employer] Incoming E kg Results From [email or web address] - 10/19/2020 10:36 PM EDT Sinus bradycardia Possible Anterior infarct , age undetermined Abnormal ECG When compared with ECG of 03-AUG-2020 09:21, No significant change was found Confirmed by JOSE RAMOS ([id number]) on 10/19/2020 10:36:19 PM [facility] Phone: [facility] Phone: Laboratory - Chemistry and C hemistry - challengeOrdered By: Radu Worrell on 10-19-2020 GFR/1.73 sq M.predicted MDRD (S/P/Bld) [Vol rate/Area] [facility] Phone: Comment on above: Average GFR for 70 o r more years old: 75 mL/min/1.73sq m Chronic Kidney Disease: <60 mL/min/1.73sq m Kidney failure: <15 mL/min/1.73sq m eGFR calculated using average adult body mass. Additional eGFR calculator available at: http://www.[employer]multiple_crcl_2012.htm Stage 1: Some kidney damage normal GFR Stage 2: Mild kidney damage GFR 60-89 Stage 3: Moderate kidney damage GFR 30-59 Stage 4: Severe kidney damage GFR 15-29 Stage 5: Severe kidney damage GFR <15 ESRD - chronic treatment by dialysis or transplant Lactic Acidon 10-19-2020 Lactate [Moles/Vol] 1.1 mmol/L Normal 0.5-2.2 [facility] Comment on above: Performed By: #### B C #### [facility] [address] [place] [address] [place] [address] [employer] Screen Tender: Emerson Hall MD Lactic AcidOrdered By: Katy Worrell on 10-19-2020 Lactate [Moles/Vol] 1.1 mmol/L 0.5 - 2. 2 mmol/L [facility] Work Phone: [facility] Work Phone: Lipaseon 10-19-2020 Lipase [Catalytic activity/Vol] 21 U/L Normal 13-60 [facility] Comment on above: Performed By: #### B C #### [facility] [address] [place] [address] [employer] Screen Tender: Emerson Hall MD LipaseOrdered By: Radu howard on 10-19-2020 Lipase [Catalytic activity/Vol] 21 U/L 13 - 60 U/L [facility] Work Phone: Microscopic UrinalysisOrdere d By: Radu Worrell on 10-19-2020 - [facility] Work Phone: Amorphous, UA NOT REPORTED None [facility] Work Phone: Bacteria, UA TRACE Abnormal None [facility] [employer] Work Phone: Casts UA NOT REPORTED /LPF [facility] Work Phone: Crystals, UA NOT REPORTED None /HPF [facility] Work Phone: Epithelial Cells UA 0 TO 2 [facility] Work Phone: Interpretation and review of laboratory results Abnormal [facility] Work Phone: Mucus, UA 1+ Abnormal None [facility] Work Phone: Other Observations UA NOT REPORTED NOT REQ. [facility] [employer] Work Phone: RBC, UA 0 TO 2 [facility] Work Phone: Renal Epithelial, UA NOT REPORTED 0 /HPF [facility] [employer] Work Phone: Trichomonas, UA NOT REPORTED None [facility] Work Phone: WBC, UA 0 TO 2 [facility] [employer] Work Phone: Yeast, UA NOT REPORTED None [facility] [employer] Work Phone: [facility] [employer] Work Phone: No Panel InformationOrdered By: Radu Worrell on 10-19-2020 [facility] [employer] Work Phone: Troponinon 10-19-2020 Troponin, High Sens 10 ng/L Normal 0-14 [facility] Comment on above: Result Comment: High Sensitivity Troponin values cannot be compared with other Troponin methodologies. Patients with high levels of Biotin oral intake (i.e >5mg/day) may have falsely decreased Troponin levels. Samples collected within 8 hours of biotin intake may require additional information for diagnosis. Performed By: #### B C #### [facility] [address] [place] [address] [employer] Screen Tender: Emerson Hall MD Troponin Interp. NOT REPORTED Normal [facility] Comment on above: Performed By: #### B C #### [facility] [address] [place] [address] Ch[employer] Screen Tender: Emerson Hall MD Troponin T NOT REPORTED Normal <0.03 [facility] Comment on above: Performed By: #### B C #### [facility] [address] [place] [address] [employer] Screen Tender: Emerson Hall MD TroponinOrdered By: Radu Worrell on 10-19-2020 Troponin Interp NOT REPORTED [facility] Work Phone: Troponin T NOT REPORTED <0.03 ng/mL [facility] Work Phone: Troponin, High Sensitivity 10 ng/L 0 - 14 ng/L [facility] Work Phone: Comment on above: High Sensitivity Troponin values cannot be compared with other Troponin methodologies. Patients with high levels of Biotin oral intake (i.e >5mg/day) may have falsely decreased Troponin levels. Samples collected within 8 hours of biotin intake may require additional information for diagnosis. UA w/Reflex Cultureon 2020 Bilirubin, SemiQt,Ur SMALL Abnormal NEG [facility] Comment on above: Performed By: #### U DONNY REBOLLEDO #### [facility] [address] [place] [address] [employer] Screen Tender: Emerson Hall MD Blood, Urine Negative Normal NEG [facility] Comment on above: Performed By: #### U DONNY REBOLLEDO #### [facility] [address] [place] [address] [employer] Screen Tender: Emerson Hall MD Clarity (U) CLEAR Normal CLEAR [facility] Comment on above: Performed By: #### U JANELL REBOLLEDOO #### [facility] [address] [place] [address] [employer] Screen Tender: Emerson Hall MD Color (U) YELLOW Normal YEL [facility] Comment on above: Performed By: #### U JANELL REBOLLEDOO #### [facility] [address] [place], [place] [id number] [employer] Screen Tender: Emerson Hall MD Glucose Ql (U) Negative Normal NEG [facility] in Hospital Comment on above: Performed By: #### U AX, UMICAO #### [facility] [address] [place], [place] [phone] [employer] Screen Tender: Emerson Hall MD Ketones Ql (U) 2+ Abnormal NEG [facility] in Hospital Comment on above: Performed By: #### U AX, UMICAO #### [facility] [address] [place] [address] [place]. [place], [place] [id number] Ch[employer] Screen Tender: Emerson Hall MD Leukocyte esterase Test strip Ql (U) Negative Normal NEG [facility] Comment on above: Performed By: #### U AX, UMICAO #### [address] [place] [address] Ch[employer] Screen Tender: Emerson Hall MD Nitrite,Ur Negative Normal [facility] Comment on above: Performed By: #### U AX, UMICAO #### [address] [place] [address] [employer] Screen Tender: Emerson Hall MD PH,Ur 5.0 Normal 5.0-9.0 [facility] Comment on above: Performed By: #### U AX, UMICAO #### [facility] [address] [place] [address] [place] [address] Ch[employer] Screen Tender: Emerson Hall MD Protein Ql (U) TRACE Abnormal NEG [facility] in Hospital Comment on above: Performed By: #### U AX, UMICAO #### [facility] [address] [place] [address] Dr. [place], [place] [id number] Ch[employer] Screen Tender: Emerson Hall MD Spec. [place],Ur >1.030 High 1.010-1.020 [facility] Comment on above: Performed By: #### U AX, UMICAO #### [facility] [address] [place] [address] Ch[employer] Screen Tender: Emerson Hall MD Urobilinogen,Ur Normal Normal NORM [facility] Comment on above: Performed By: #### U AX, UMICAO #### [facility] [address] [place] [address] Ch[employer] Screen Tender: Emerson Hall MD Comment NOT REPORTED Normal [facility] Comment on above: Performed By: #### U AX, UMICAO #### [facility] [address] [place] [address] Ch[employer] Screen Tender: Emerson Hall MD Urinalysis Reflex to Culture Ordered By: Radu Worrell on 10-19-2020 Bilirubin Urine SMALL Abnormal NEGATIVE [facility] Work Phone: Color, UA YELLOW YELLOW [facility] Work Phone: Glucose, Ur Negative NEGATIVE [facility] Work Phone: Interpretation and review of laboratory results Abnormal [facility] Phone: Ketones Ql (U) 2+ Abnormal NEGATIVE [facility] Work Phone: Leukocyte esterase Test strip Ql (U) Negative NEGATIVE [facility] Phone: Nitrite, Urine Negative NEGATIVE [facility] Work Phone: pH, UA 5.0 [facility] Work Phone: Protein, UA TRACE Abnormal NEGATIVE [facility] Work Phone: Specific [place], UA >1.030 [facility] Results [employer] Work Phone: Turbidity UA CLEAR CLEAR [facility] Work Phone: Urinalysis Comments NOT REPORTED [facility] [employer] Work Phone: Urine Hgb Negative NEGATIVE [facility] Phone: Urobilinogen, Urine Normal Normal [facility] Work Phone: [facility] Work Phone: Urinalysis,Microon 1 ----- Normal [facility] Comment on above: Performed By: #### U AX, UMICAO #### [facility] [address] [place], [place] [id number] [employer] Screen Tender: Emerson Hall MD Bacteria TRACE Abnormal [facility] Comment on above: Performed By: #### U AX, UMICAO #### [facility] [address] [place], [place] [address] Ch[employer] Screen Tender: Emerson Hall MD Epithelial cells LM Ql (Urine sed) 0 TO 2 Normal 0-25 [facility] Comment on above: Performed By: #### U AX UMICAO #### [facility] [address] [place], [place] [address] [employer] Screen Tender: Emerson Hall MD Mucus Strands 1+ Abnormal [facility] Comment on above: Performed By: #### U AX UMICAO #### [facility] [address] [place] [address] Ch[employer] Screen Tender: Emerson Hall MD Urine RBC's 0 TO 2 Normal 0-2 [facility] Comment on above: Performed By: #### U AX, UMICAO #### [facility] [address] [place] [address] Ch[employer] Screen Tender: Emerson Hall MD Urine WBC's 0 TO 2 Normal 0-5 [facility] Comment on above: Performed By: #### U AX, UMICAO #### [facility] [address] [place], [place] [id number] [employer] Tender: Emerson Hall MD Amorphous sediment LM Ql (Urine sed) NOT REPORTED Normal [facility] Comment on above: Performed By: #### U AX, UMICAO #### [facility] [address] [place] [address] [employer] Screen Tender: Emerson Hall MD Casts NOT REPORTED Normal [facility] Comment on above: Performed By: #### U AX, UMICAO #### [facility] [facility] [address] [place], [place] [id number] Chips Screen Tender: Emerson Hall MD Crystals LM Nom (Urine sed) NOT REPORTED Normal NONE [facility] Comment on above: Performed By: #### U AX, UMICAO #### [facility] [address] [place] [address] Chips Screen Tender: Emerson Hall MD Epithelial, Renal NOT REPORTED Normal 0 [facility] Comment on above: Performed By: #### U AX, UMICAO #### [facility] [address] [place] [address] [place] [address] Chips Screen Tender: Emerson Hall MD Other Observations NOT REPORTED Normal NREQ [facility] Comment on above: Performed By: #### U AX, UMICAO #### [address] [place] [address] Chips Screen Tender: Emerson Hall MD Trichomonas NOT REPORTED Normal NONE [facility] Comment on above: Performed By: #### U AX, UMICAO #### [facility] [address] [place] [address] [place] [address] Chips Screen Tender: Emerson Hall MD Yeast NOT REPORTED Normal NONE [facility] Comment on above: Performed By: #### U AX, UMICAO #### [facility] [address] [place] [address] [place] [place], [place] [phone] Chips Screen Tender: Emerson Hall MD Venous Blood Gaseson 10-19-2 021 Body Temp. 37.0 Normal [facility] Comment on above: Performed By: #### U AX, UMICAO #### [facility] [address] [place], [place] [id number] Chips Screen Tender: Emerson Hall MD HCO3 (Bld) [Moles/Vol] 28.0 mmol/L Normal 24.0-30.0 [facility] Comment on above: Performed By: #### U AX, UMICAO #### [facility] [address] [place], [place] [phone] Chips Screen Tender: Emerson Hall MD Oxygen (Bld) [Partial pressure] 24.4 mm[Hg] Low 30.0-50.0 [facility] Comment on above: Performed By: #### U AX UMICAO #### [address] [place], [place] [address]383 Chips Screen Tender: Emerson Hall MD Oxygen saturation in Blood 39.6 % Low 60.0-85.0 [facility] Comment on above: Performed By: #### U AX UMICAO #### [address] [place], [place] [phone] Chips Screen Tender: Emerson Hall MD pCO2 52.9 Normal 39-55 [facility] Comment on above: Performed By: #### U AX, UMICAO #### [address] [place], [place] [phone] Chips Screen Tender: Emerson Hall MD pH (Bld) 7.342 [pH] Normal 7.32-7.42 [facility] Comment on above: Performed By: #### U AX, UMICAO #### [facility] [address] [place] [address] [place] [place], [place] [phone] Chips Screen Tender: Emerson Hall MD Positive Base Excess 1.2 mmol/L Normal 0.0-2.0 [facility] Comment on above: Performed By: #### U AX, UMICAO #### [facility] [address] [place] [address] Dr[address] [place], [place] [phone] Chips Screen Tender: Emerson Hall MD Text for Respiratory DRAWN PER ED RN Normal [facility] Comment on above: Performed By: #### U AX, UMICAO #### [facility] [address] [place], [place] [phone] Chips Screen Tender: Emerson Hall MD Arthur Test NOT REPORTED Normal [facility] Comment on above: Performed By: #### U AX, UMICAO #### [facility] [address] [place] [address] Chips Screen Tender: Emerson Hall MD Carboxy Hgb NOT REPORTED Normal 0.0-5.0 [facility] Comment on above: Performed By: #### U AX, UMICAO #### [facility] [address] [place] [address] Chips Screen Tender: Emerson Hall MD FIO2 NOT REPORTED Normal [facility] Comment on above: Performed By: #### U AX, UMICAO #### [facility] [address] [place] [address] Chips Screen Tender: Emerson Hall MD Methemoglobin NOT REPORTED Normal 0.0-1.9 [facility] Comment on above: Performed By: #### U AX, UMICAO #### [facility] [address] [place] [address] Chips Screen Tender: Emerson Hall MD Mode NOT REPORTED Normal [facility] Comment on above: Performed By: #### U AX, UMICAO #### [facility] [address] [place] [address] Chips Screen Tender: Emerson Hall MD Negative Base Excess NOT REPORTED Normal 0.0-2.0 [facility] Comment on above: Performed By: #### U AX, UMICAO #### [facility] [address] [place], [place] [phone] Chips Screen Tender: Emerson Hall MD Notification Time NOT REPORTED Normal [facility] Comment on above: Performed By: #### U AX, UMICAO #### [facility] [address] [place] [address] Chips Screen Tender: Emerson Hall MD Notification: NOT REPORTED Normal [facility] Comment on above: Performed By: #### U AX, UMICAO #### [facility] [address] [place] [address] Chips Screen Tender: Emerson Hall MD O2 Device/Flow/% NOT REPORTED Normal [facility] Comment on above: Performed By: #### U AX, UMICAO #### [facility] [address] [place] [address] Chips Screen Tender: Emerson Hall MD Oxyhemoglobin NOT REPORTED Normal 95.0-98.0 [facility] Comment on above: Performed By: #### U AX, UMICAO #### [facility] [address] [place] [address] Chips Screen Tender: Emerson Hall MD Pco2 Adj'd for Temp. NOT REPORTED Normal 39.0-55.0 [facility] Comment on above: Performed By: #### U AX, UMICAO #### [facility] [address] [place] [address] Chips Screen Tender: Emerson Hall MD PEEP/CPAP NOT REPORTED Normal [facility] Comment on above: Performed By: #### U AX, UMICAO #### [facility] [address] [place] [address] Chips Screen Tender: Emerson Hall MD pH Adjst'd for Temp. NOT REPORTED Normal 7.320-7.420 M [facility] Comment on above: Performed By: #### U AX, UMICAO #### [facility] [address] [place], [place] [address] Chips Screen Tender: Emerson Hall MD pO2 Adj'd for Temp. NOT REPORTED Normal 30.0-50.0 [facility] Comment on above: Performed By: #### U AX, UMICAO #### [facility] [address] [place] [address] Chips Screen Tender: Emerson Hall MD PSV NOT REPORTED Normal [facility] Comment on above: Performed By: #### U AX, UMICAO #### [facility] [address] [place] [address] Chips Screen Tender: Emerson Hall MD Pt. Position NOT REPORTED Normal [facility] Comment on above: Performed By: #### U AX, UMICAO #### [facility] [address] [place] [address] Chips Screen Tender: Emerson Hall MD Respiratory Rate NOT REPORTED Normal [facility] Comment on above: Performed By: #### U AX, UMICAO #### [facility] [address] [place] [address] [place] [address] Chips Screen Tender: Emerson Hall MD Set Rate NOT REPORTED Normal [facility] Comment on above: Performed By: #### U AX, UMICAO #### [address] [place] [address] Chips Screen Tender: Emerson Hall MD Site Drawn NOT REPORTED Normal [facility] Comment on above: Performed By: #### U AX, UMICAO #### [facility] [address] [place] [address] Chips Screen Tender: Emerson Hall MD Total Hb NOT REPORTED Normal 12.0-16.0 [facility] Comment on above: Performed By: #### U AX, UMICAO #### [facility] [address] [place] [address] Chips Screen Tender: Emerson Hall MD Total Rate NOT REPORTED Normal [facility] Comment on above: Performed By: #### U AX, DONNY #### [facility] [address] [place] [address] Chips Screen Tender: Emerson Hall MD [place] NOT REPORTED Normal [facility] Comment on above: Performed By: #### U DONNY REBOLLEDO #### [facility] [address] [place] [address] Chips Screen Tender: Emerson Hall MD XR CHEST PORTABLEon 10-20-19 [...] Milton Zheng MD 10/19/20 Final result Normal [facility] XR CHEST PORTABLEOrdered By: Radu Worrell on 10-19-2020 No acute cardiopulmonary disease [employer] Phone: EXAMINATION: ONE XRA Y VIEW OF [...] bony abnormalities. The hilar structures are normal. [employer] Phone: Romero, Mhpn Incoming Radiant Results From App [employer] - 10/19/2020 7:02 PM EDT EXAMINATION: ONE [...] are normal. IMPRESSION: No acute cardiopulmonary disease [employer] Phone: [employer] Phone: ANION GAPon 08-05-2020 Anion gap [Moles/Vol] 8.0 mmol/L Normal 8.0-16.0 [facility] Comment on above: Result Comment: ANIO N GAP = Sodium -(Chloride + CO2) Performed By: #### C BCWD, BMP, MG, ANION, EGFR1 #### [facility] [place] [address] Anion GapOrdered By: Jack Mensah on 08-05-2020 Anion gap [Moles/Vol] 8.0 mmol/L 8.0 - 16.0 meq/L [employer] Phone: Comment on above: ANION GAP = Sodium - (Chloride + CO2) Performed at [facility] [address] [place] [address] BASIC METABOL PANELon 2020 Calcium [Mass/Vol] 9.3 mg/dL Normal 8.5-10.5 [facility] Comment on above: Performed By: #### C BCWD, BMP, MG, ANION, EGFR1 #### [facility] [address] [place] [address] Chloride [Moles/Vol] 107 mmol/L Normal 98-111 [facility] Comment on above: Performed By: #### C BCWD, BMP, MG, ANION, EGFR1 #### [facility] [address] [place] [address] CO2 [Moles/Vol] 23 mmol/L Normal 23-33 [facility] Comment on above: Performed By: #### C BCWD, BMP, MG, ANION, EGFR1 #### [facility] [place] [address] Creatinine [Mass/Vol] 0.6 mg/dL Normal 0.4-1.2 [facility] Comment on above: Performed By: #### C BCWD, BMP, MG, ANION, EGFR1 #### [facility] [place] [address] Glucose [Mass/Vol] 101 mg/dL Normal 70-108 [facility] Comment on above: Performed By: #### C BCWD, BMP, MG, ANION, EGFR1 #### [facility] [employer] [address] [place] [address] Potassium [Moles/Vol] 3.8 mmol/L Normal 3.5-5.2 [facility] Comment on above: Performed By: #### C BCWD, BMP, MG, ANION, EGFR1 #### [facility] [email or web address] [address] [address] Sodium [Moles/Vol] 138 mmol/L Normal 135-145 [facility] Comment on above: Performed By: #### C BCWD, BMP, MG, ANION, EGFR1 #### [facility] [address] [address] Urea nitrogen [Mass/Vol] 12 mg/dL Normal 7-22 [facility] Comment on above: Performed By: #### C BCWD, BMP, MG, ANION, EGFR1 #### [facility] [place] [address] Basic Metabolic PanelOrdered By: Jack Mensah on 08-05-2020 Calcium [Mass/Vol] 9.3 mg/dL 8.5 - 10. 5 mg/dL [employer] Phone: Comment on above: Performed at [facility] [address] [place] [address] Chloride [Moles/Vol] 107 mmol/L 98 - 11 1 meq/L [employer] Phone: CO2 [Moles/Vol] 23 mmol/L 23 - 33 meq/L [facility] Work Phone: Creatinine [Mass/Vol] 0.6 mg/dL 0.4 - 1.2 mg/dL [employer] Phone: Glucose [Mass/Vol] 101 mg/dL 70 - 108 mg/dL [employer] Phone: Potassium [Moles/Vol] 3.8 mmol/L 3.5 - 5.2 meq/L [employer] Phone: Sodium [Moles/Vol] 138 mmol/L 135 - 145 meq/L [employer] Phone: Urea nitrogen (BldV) [Mass/Vol] 12 mg/dL 7 - 22 mg/dL [employer] Phone: CBC Auto DifferentialOrdered By: Jack Mensah on 08-05-2020 Basophils (Bld) [#/Vol] 0.1 10*3/uL [employer] Phone: Basophils/100 WBC (Bld) 1.4 % [employer] Phone: Eosinophils Absolute 0.3 [employer] Phone: Eosinophils/100 WBC (Bld) 3.3 % [employer] Phone: Erythrocyte distribution width (RBC) [Ratio] 13.2 % 11.5 - 14.5 % [employer] Phone: Erythrocyte distribution width (RBC) [Ratio] 47.8 fL High 35.0 - 45.0 fL [employer] Phone: Hematocrit (Bld) [Volume fraction] 42.3 % 37.0 - 47.0 % [employer] Phone: Hemoglobin.gastrointes tinal spec 1 Ql (Stl) 13.1 [employer] Work Phone: Immature Grans (Abs) 0.04 [facility] [employer] Work Phone: Immature granulocytes/100 WBC (Bld) 0.5 % [employer] Work Phone: Interpretation and review of laboratory results Abnormal [employer] Phone: Lymphocytes Absolute 2.3 [employer] Phone: Lymphocytes/100 WBC (Bld) 29.4 % [employer] Phone: MCH (RBC) [Entitic mass] 30.5 pg 26.0 - 33.0 pg [employer] Work Phone: MCHC (RBC) [Mass/Vol] 31.0 g/dL Low [employer] Work Phone: MCV (RBC) [Entitic vol] 98.6 fL 81.0 - 99.0 fL [employer] Phone: Monocytes Absolute 0.7 [employer] Work Phone: Monocytes/100 WBC (Bld) 9.4 % [employer] Work Phone: nRBC 0 /100 wbc [employer] Phone: Comment on above: Performed at [facility] [address] [place] [address] Platelet mean volume (Bld) [Entitic vol] 8.9 fL Low 9.4 - 12.4 fL [employer] Phone: Platelets (Bld) [#/Vol] 242 10*3/uL [employer] Work Phone: RBC (Bld) [#/Vol] 4.29 10*6/uL [employer] Work Phone: Segmented neutrophils/100 WBC (Bld) 56 % [employer] Work Phone: Segs Absolute 4.3 [employer] Work Phone: WBC (Bld) [#/Vol] 7.7 10*3/uL [employer] Work Phone: CBC WITH DIFFERENTIALon 07-10 ABS BASOPHILS 0.1 thou/mm3 Normal 0.0-0.1 [facility] Comment on above: Performed By: #### C BCWD, BMP, MG, ANION, EGFR1 #### [address] [address] ABS EOSINOPHILS 0.3 thou/mm3 Normal 0.0-0.4 [facility] Comment on above: Performed By: #### C BCWD, BMP, MG, ANION, EGFR1 #### [address] [address] ABS IMMATURE GRANS (IG) 0.04 thou/mm3 Normal 0.00-0.07 [facility] Comment on above: Performed By: #### C BCWD, BMP, MG, ANION, EGFR1 #### [address] [address] ABS LYMPHOCYTES 2.3 thou/mm3 Normal 1.0-4.8 [facility] Comment on above: Performed By: #### C BCWD, BMP, MG, ANION, EGFR1 #### [address] [address] ABS MONOCYTES 0.7 thou/mm3 Normal 0.4-1.3 [facility] Comment on above: Performed By: #### C BCWD, BMP, MG, ANION, EGFR1 #### [address] [address] ABS NEUTROPHILS 4.3 thou/mm3 Normal 1.8-7.7 [facility] Comment on above: Performed By: #### C BCWD, BMP, MG, ANION, EGFR1 #### [facility] [address] [address] Basophils/100 WBC (Bld) 1.4 % Normal [facility] Comment on above: Performed By: #### C BCWD, BMP, MG, ANION, EGFR1 #### [facility] [address] [address] Eosinophils/100 WBC (Bld) 3.3 % Normal [facility] Comment on above: Performed By: #### C BCWD, BMP, MG, ANION, EGFR1 #### [facility] [place] [address] Erythrocyte distribution width (RBC) [Ratio] 13.2 % Normal 11.5-14.5 [facility] Comment on above: Performed By: #### C BCWD, BMP, MG, ANION, EGFR1 #### [facility] [address] [place] [address] Hematocrit (Bld) [Volume fraction] 42.3 % Normal 37.0-47.0 [facility] Comment on above: Performed By: #### C BCWD, BMP, MG, ANION, EGFR1 #### [address] [address] Hemoglobin (Bld) [Mass/Vol] 13.1 g/dL Normal 12.0-16.0 [facility] Comment on above: Performed By: #### C BCWD, BMP, MG, ANION, EGFR1 #### [address] [address] IMMATURE GRANS (IG) 0.5 % Normal [facility] Comment on above: Performed By: #### C BCWD, BMP, MG, ANION, EGFR1 #### [address] [address] Lymphocytes/100 WBC (Bld) 29.4 % Normal [facility] Comment on above: Performed By: #### C BCWD, BMP, MG, ANION, EGFR1 #### [address] [address] MCH (RBC) [Entitic mass] 30.5 pg Normal 26.0-33.0 [facility] Comment on above: Performed By: #### C BCWD, BMP, MG, ANION, EGFR1 #### [address] [address] MCHC (RBC) [Mass/Vol] 31.0 g/dL Low 32.2-35.5 [facility] Comment on above: Performed By: #### C BCWD, BMP, MG, ANION, EGFR1 #### [address] [address] MCV (RBC) [Entitic vol] 98.6 fL Normal 81.0-99.0 [facility] Comment on above: Performed By: #### C BCWD, BMP, MG, ANION, EGFR1 #### [facility] [email or web address] [address] [address] Monocytes/100 WBC (Bld) 9.4 % Normal [facility] Comment on above: Performed By: #### C BCWD, BMP, MG, ANION, EGFR1 #### [facility] [place] [address] Neutrophils/100 WBC (Bld) 56.0 % Normal [facility] Comment on above: Performed By: #### C BCWD, BMP, MG, ANION, EGFR1 #### [place] [address] NRBC 0 /100 wbc Normal [facility] Comment on above: Performed By: #### C BCWD, BMP, MG, ANION, EGFR1 #### [address] [address] PLATELET 242 thou/mm3 Normal 130-400 [facility] Comment on above: Performed By: #### C BCWD, BMP, MG, ANION, EGFR1 #### [address] [address] Platelet mean volume (Bld) [Entitic vol] 8.9 fL Low 9.4-12.4 [facility] Comment on above: Performed By: #### C BCWD, BMP, MG, ANION, EGFR1 #### [facility] [email or web address] [address] [address] RBC 4.29 mill/mm3 Normal 4.20-5.40 [facility] Comment on above: Performed By: #### C BCWD, BMP, MG, ANION, EGFR1 #### [facility] [address] [address] RDW-SD 47.8 fL High 35.0-45.0 [facility] Comment on above: Performed By: #### C BCWD, BMP, MG, ANION, EGFR1 #### [facility] [place] [address] WBC 7.7 thou/mm3 Normal 4.8-10.8 [facility] Comment on above: Performed By: #### C BCWD, BMP, MG, ANION, EGFR1 #### [facility] [address] [place] [address] Culture, Reflexed, UrineOrde red By: Darien Ferrara on 08-05-2020 Interpretation and review of laboratory results Abnormal [employer] Phone: Organism Mixed Growth Abnormal [employer] Phone: Urine Culture Reflex Mixed growth. The mixture of organisms present represents both organisms that may cause urinary tract infections and organisms that are not a common cause of urinary tract infections and are possibly skin hermilo or distal urethral hermilo. Abnormal [employer] Phone: Source: urine, clean catch Site: Current Antibiotics: not stated [employer] Phone: GFR, ESTIMATEDon 08-05-2020 GFR/1.73 sq M.predicted MDRD (S/P/Bld) [Vol rate/Area] mL/min/{1.73_m2} Normal [facility] Comment on above: Result Comment: Stag e [...] C BCWD, BMP, MG, ANION, EGFR1 #### [facility] [address] [place] [address] GLUCOSE POCon 08-05-2020 Glucose [Mass/Vol] 88 mg/dL Normal 70-108 [facility] Comment on above: Performed By: #### P OCGL #### [facility] [address] [place] [address] Glomerular Filtration Rate, EstimatedOrdered By: Jack Mensah on 08-05-2020 GFR/1.73 sq M.predicted MDRD (S/P/Bld) [Vol rate/Area] mL/min/{1.73_m2} ml/min/1.73m 2 [employer] Phone: Comment on above: Stage Description GF [...] Vol. 139 (2) pg 137-147. Performed at [facility] [address] [place] [address] MAGNESIUMon 08-05-2020 Magnesium [Mass/Vol] 2.0 mg/dL Normal 1.6-2.4 [facility] Comment on above: Performed By: #### C BCWD, BMP, MG, ANION, EGFR1 #### [employer] [facility] [address] [place] [address] MagnesiumOrdered By: Jack Mensah on 08-05-2020 Magnesium [Mass/Vol] 2.0 mg/dL 1.6 - 2 .4 mg/dL [employer] Phone: Comment on above: Performed at [facility] [address] [place] [address] POCT GlucoseOrdered By: Lexie Garcia on 08-05-2020 Glucose [Mass/Vol] 88 mg/dL 70 - 108 mg/dl [employer] Phone: Comment on above: Performed at [facility] [address] [place] [address] MRI BRAIN W WO CONTRASTOrder ed By: [...] Dr. Gracie Kruse on 08/04/2020 1:28 PM [employer] Phone: Romero, Wcoh Incoming Radiant Results From App [employer] - 08/04/2020 1:30 PM EDT PROCEDURE: MRI [...] Dr. Gracie Kruse on 08/04/2020 1:28 PM [employer] Phone: REFLEX CULT URon 08-04-2020 REFLEX CULT UR MICROBIOLOGY REPORT [facility], [address] [place] [address], [address] PATIENT: LILLIANA PATEL LOCATION: [address] [place], [place] [address] -A : 1940 AGE: 79 SEX: F ADM: 08/04/20 Att. Physician: DARLYN GARCIA Order Id: [id number] Req. Physician: DARIEN FERRARA Source: urine, clean [...] urethral hermilo. Organism 00 Mixed Growth Normal [facility] Comment on above: Performed By: #### U RCS2 #### [facility] [place] [address] T4 (FREE)on 08-04-2020 T4 (FREE) 1.00 ng/dL Normal 0.93-1.76 [facility] Comment on above: Performed By: #### C BCWD, BMP, MG, ANION, EGFR1 #### [facility] [address] [place] [address] T4, FreeOrdered By: Shirley Ferrara on 08-04-2020 Free T4 [Mass/Vol] 1 ng/dL 0.93 - 1. 76 ng/dL [employer] Work Phone: Comment on above: Performed at [facility] [address] [place] [address] TSH W/ REFLEX FT4on 08-05-19 21 TSH THIRD GENERATION 5.250 uIU/mL High 0.400-4.200 [facility] Comment on above: Performed By: #### T SHRF, VB12F, FT4 #### [facility] [address] [place] [address] TSH with ReflexOrdered By: Jessica Ferrara on 08-04-2020 Interpretation and review of laboratory results Abnormal [employer] Work Phone: TSH Qn 5.250 m[IU]/L High [facility] Work Phone: Comment on above: Performed at [facility] [address] [place] [address] UA WITH MICROSCOPICon 2020 BACTERIA FEW Normal FEW/NONE SEEN [facility] Comment on above: Performed By: #### U RCS2 #### [facility] [address] [place] [address] CASTS NONE SEEN Normal NONE SEEN [facility] Comment on above: Performed By: #### U RCS2 #### [facility] [address] [place] [address] CASTS 2 NONE SEEN Normal NONE SEEN [facility] Comment on above: Performed By: #### U RCS2 #### [facility] [address] [place] [address] Crystals LM Nom (Urine sed) NONE SEEN Normal NONE SEEN [facility] Comment on above: Performed By: #### U RCS2 #### [facility] [address] [place] [address] EPITHELIAL 3 /hpf Normal 3-5/hpf [facility] Comment on above: Performed By: #### U RCS2 #### [facility] [address] [place] [address] MISCELLANEOUS 2 NONE SEEN Normal [facility] Comment on above: Performed By: #### U RCS2 #### [facility] [address] [place] [address] RBC 0 /hpf Normal 0-2/hpf [facility] Comment on above: Performed By: #### U RCS2 #### [facility] [address] [place] [address] RENAL EPITHELIAL NONE SEEN Normal NONE SEEN [facility] Comment on above: Performed By: #### U RCS2 #### [facility] [address] [place] [address] WBC 25 /hpf Normal 0-4/hpf [facility] Comment on above: Performed By: #### U RCS2 #### [facility] [address] [place] [address] [place] [address] YEAST NONE SEEN Normal NONE SEEN [facility] Comment on above: Performed By: #### U RCS2 #### [facility] [address] [place] [address] Bilirubin Ql (U) Negative Normal NEGATIVE [facility] Comment on above: Performed By: #### U RCS2 #### [facility] [address] [place] [address] CHARACTER CLEAR Normal CLEAR-SL CLOUD [facility] Comment on above: Performed By: #### U RCS2 #### [facility] [address] [place] [address], [place] [address] Color (U) YELLOW Normal STRAW-YELLOW [facility] Comment on above: Performed By: #### U RCS2 #### [facility] [address] [place] [address]183 Glucose Ql (U) Negative Normal NEGATIVE [facility] Comment on above: Performed By: #### U RCS2 #### [facility] [address] [place] [address]7325 Hemoglobin Ql (U) TRACE Abnormal NEGATIVE [facility] Comment on above: Performed By: #### U RCS2 #### [facility] [address] [place] [address] 01082 Ketones Ql (U) Negative Normal NEGATIVE [facility] Comment on above: Performed By: #### U RCS2 #### [facility] [address] [place] [address] 29301 LEUKOCYTES LARGE Abnormal NEGATIVE [facility] Comment on above: Performed By: #### U RCS2 #### [facility] [address] [place] [address] 28538 Nitrite Ql (U) Negative Normal NEGATIVE [facility] Comment on above: Performed By: #### U RCS2 #### [facility] [address] [place] [address], [place] [address] pH (U) 7.0 [pH] Normal 5.0 - 9.0 [facility] Comment on above: Performed By: #### U RCS2 #### [facility] [address] [place] [address] 86323 Protein Ql (U) Negative Normal NEGATIVE [facility] Comment on above: Performed By: #### U RCS2 #### [facility] [address] [place] [address] 21088 Specific gravity (U) [Rel density] 1.012 Normal 1.002-1.030 [facility] Comment on above: Performed By: #### U RCS2 #### [employer] [address] [place] [address] Urobilinogen Qn (U) 0.2 {Kannan'U}/dL Normal 0.0 - 1. 0 [facility] Comment on above: Performed By: #### U RCS2 #### [employer] [address] [place] [address] Urine with Reflexed MicroOrd ered By: Darien Ferrara on 08-04-2020 Bacteria, UA FEW FEW/NONE SEEN /hpf [employer] Work Phone: Bilirubin Urine Negative NEGATIVE [facility] Work Phone: Blood, Urine TRACE Abnormal NEGATIVE [employer] Work Phone: CASTS 2 NONE SEEN NONE SEEN /lpf [employer] Work Phone: Casts UA NONE SEEN NONE SEEN /lpf [employer] Work Phone: Character, Urine CLEAR CLEAR-SL CLOUD [employer] Work Phone: Color, UA YELLOW STRAW-YELLOW [employer] Work Phone: Crystals, UA NONE SEEN NONE SEEN [employer] Work Phone: Epithelial Cells, UA 3-5 3-5/hpf /hpf [facility] Work Phone: Glucose, Ur Negative NEGATIVE mg/dl [employer] Work Phone: Interpretation and review of laboratory results Abnormal [employer] Work Phone: Ketones Ql (U) Negative NEGATIVE [employer] Work Phone: Leukocyte esterase Test strip Ql (U) LARGE Abnormal NEGATIVE [employer] Work Phone: MISCELLANEOUS 2 NONE SEEN [facility] Work Phone: Comment on above: Performed at [facility] [address] [place] [address] Nitrite, Urine Negative NEGATIVE [employer] Work Phone: pH, UA 7.0 [employer] Work Phone: Protein, UA Negative NEGATIVE [employer] Work Phone: RBC, UA 0-2 0-2/hpf /hpf [employer] Work Phone: Renal Epithelial, UA NONE SEEN NONE SEEN [employer] Work Phone: Specific [place], Urine 1.012 [employer] Work Phone: Urobilinogen, Urine 0.2 [employer] Work Phone: WBC, UA 25-50 0-4/hpf /hpf [employer] Work Phone: Yeast, UA NONE SEEN NONE SEEN [employer] Phone: VITAMIN B12 FOLATEon 021 Cobalamin (Vitamin B12) [Mass/Vol] 1839 pg/mL High 211-911 [facility] Comment on above: Performed By: #### C BCWD, BMP, MG, ANION, EGFR1 #### [employer] [address] [place] [address] FOLATE 14.6 ng/mL Normal 4.8-24.2 [facility] Comment on above: Performed By: #### C BCWD, BMP, MG, ANION, EGFR1 #### [employer] [address] [place] [address] Vitamin B12 & folateOrdered By: Darien Ferrara on 08-04-2020 Cobalamin (Vitamin B12) [Mass/Vol] 1839 pg/mL High 211 - 911 pg/mL [employer] Work Phone: Folate 14.6 ng/mL 4.8 - 24.2 ng/mL [employer] Phone: Comment on above: Performed at [facility] [employer] [facility] [address] [place] [address] Interpretation and review of laboratory results Abnormal [employer] Work Phone: VL DUP UPPER EXTREMITY VENOU S RIGHTon 05-13-2020 [facility] Vascular Upper Extremities Veins Procedure Patient Name DANA Date of Study 05/13/2020 LILLIANA B Date of 1940 Gender Female Age 79 year(s) Race Room Number Corporate ID [id number] # Patient Acct [id number] # MR # [id number] Retail Sales Representative CELSA Mensah [facility] Interpreting Physician Reymundo Barbosa MD [...] !Phasic ! ! + ---+ ----+ ------+ [facility] [place] Romero, Sveta Incoming Cardio Results From [facility]/ - 05/13/2020 12:29 PM [facility] Vascular Upper Extremities Veins Procedure Patient Name DANA Date of Study 05/13/2020 LILLIANA Salmeron Date of 1940 Gender Female Age 79 year(s) Race Room Number Corporate ID [id number] # Patient Acct [id number] # MR # [id number] Retail Sales Representative Rodrick, RVT Karen Son T Interpreting Physician [...] ! + ---+ ----+ ------ + [facility], [place] CBC Auto Differentialon 02-08 Basophils (Bld) [#/Vol] 0.10 10*3/uL [facility] [place] Basophils/100 WBC (Bld) 1 % 0 - 2 % [facility] [place] Differential Type NOT REPORTED [place] Eosinophils (Bld) [#/Vol] 0.25 10*3/uL [facility] Eosinophils/100 WBC (Bld) 3 % 1 - 4 % [facility] Erythrocyte distribution width (RBC) [Ratio] 12.9 % 11.8 - 14.4 % [facility] [place] Hematocrit (Bld) [Volume fraction] 42.7 % 36.3 - 47.1 % [facility] [place] Hemoglobin (Bld) [Mass/Vol] 13.5 g/dL 11.9 - 15.1 g/dL [facility] [place] Immature granulocytes (Bld) [#/Vol] 1 % High 0 [facility] Immature granulocytes (Bld) [#/Vol] 0.04 10*3/uL [facility] [place] Interpretation and review of laboratory results Abnormal [place] Lymphocytes (Bld) [#/Vol] 3.21 10*3/uL [place] Lymphocytes/100 WBC (Bld) 39 % 24 - 43 % [place] MCH (RBC) [Entitic mass] 31.0 pg 25.2 - 33.5 pg [place] MCHC (RBC) [Mass/Vol] 31.6 g/dL 28.4 - 34.8 g/dL [place] MCV (RBC) [Entitic vol] 97.9 fL 82.6 - 102.9 fL [place] Monocytes (Bld) [#/Vol] 0.62 10*3/uL [place] Monocytes/100 WBC (Bld) 8 % 3 - 12 % [place] Platelet mean volume (Bld) [Entitic vol] 9.4 fL 8.1 - 13.5 fL [place] Platelets (Bld) [#/Vol] 250 10*3/uL [place] Platelets (Bld) [#/Vol] NOT REPORTED [place] RBC (Bld) [#/Vol] 4.36 10*6/uL 3.95 - 5.1 1 m/uL [place] RBC morphology finding Nom (Bld) NOT REPORTED [place] Segmented neutrophils/100 WBC (Bld) 48 % 36 - 65 % [place] Segs Absolute 4.09 [place] WBC (Bld) [#/Vol] 0.0 10*3/uL 0.0 per 10 0 WBC [place] WBC (Bld) [#/Vol] 8.3 10*3/uL [place] WBC Morphology NOT REPORTED [place] Comprehensive Metabolic Pane uriel 02-25-2020 Albumin [Mass/Vol] 3.9 g/dL 3.5 - 5.2 g/dL [place] Albumin/Globulin [Mass ratio] 1.6 {ratio} [place] ALP [Catalytic activity/Vol] 60 U/L 35 - 104 U/L [place] ALT [Catalytic activity/Vol] 7 U/L 5 - 33 U/L [place] Anion gap [Moles/Vol] 7 mmol/L Low 9 - 17 mmol/L [place] AST [Catalytic activity/Vol] 14 U/L <32 [place] Bilirubin Ql (U) 0.52 mg/dL 0.3 - 1.2 mg/dL [place] Bun/Cre Ratio 11 [place] Calcium [Mass/Vol] 9.7 mg/dL 8.6 - 10. 4 mg/dL [place] Chloride [Moles/Vol] 105 mmol/L 98 - 10 7 mmol/L [place] CO2 [Moles/Vol] 27 mmol/L 20 - 31 mmol/L [place] Creatinine [Mass/Vol] 0.7 mg/dL 0.5 - 0.9 mg/dL [place] GFR >60 >60 mL/min [place] GFR Non- >60 >60 mL/min [place] Glucose [Mass/Vol] 95 mg/dL 70 - 99 mg/dL [place] Interpretation and review of laboratory results Abnormal [place] Potassium [Moles/Vol] 5.0 mmol/L 3.7 - 5.3 mmol/L [place] Protein [Mass/Vol] 6.3 g/dL Low 6.4 - 8.3 g/dL [place] Sodium [Moles/Vol] 139 mmol/L 135 - 144 mmol/L [place] Urea nitrogen [Mass/Vol] 8 mg/dL 8 - 23 mg/dL [place] Lipid Panelon 02-25-2020 Cholesterol [Mass/Vol] 162 mg/dL <200 [place] Comment on above: Cholesterol Guidelines: <200 Desirable 200-240 Borderline >240 Undesirable Cholesterol in HDL [Mass/Vol] 60 mg/dL >40 [place] Comment on above: HDL Guidelines: <40 Undesirable 40-59 Borderline >59 Desirable Cholesterol in LDL [Mass/Vol] 88 mg/dL 0 - 130 mg/dL [place] Comment on above: LDL Guidelines: <100 Desirable 100-129 Near to/above Desirable 130-159 Borderline >159 Undesirable Direct (measured) LDL and calculated LDL are not interchangeable tests. Cholesterol in VLDL [Mass/Vol] NOT REPORTED 1 - 30 mg/dL [place] Cholesterol.total/Chol esterol in HDL [Mass ratio] 2.7 {ratio} <5 [place] Triglyceride [Mass/Vol] 68 mg/dL <150 [place] Comment on above: Triglyceride Guidelines: <150 Desirable 150-199 Borderline 200-499 High >499 Very high Based on AHA Guidelines for fasting triglyceride, January 2012. Metabolic Panelon 02-25-2020 GFR/1.73 sq M predicted among non-blacks MDRD (S/P/Bld) [Vol rate/Area] [place] Comment on above: Stage 1: Some [...] body mass. Additional eGFR calculator available at: http://www.[employer]multiple_crcl_2012.htm CBC Auto Differentialon 10-08 Basophils (Bld) [#/Vol] 0.07 10*3/uL [place] Basophils/100 WBC (Bld) 1 % 0 - 2 % [place] Differential Type NOT REPORTED [place] Eosinophils (Bld) [#/Vol] 0.20 10*3/uL [place] Eosinophils/100 WBC (Bld) 2 % 1 - 4 % [place] Erythrocyte distribution width (RBC) [Ratio] 13.2 % 11.8 - 14.4 % [place] Hematocrit (Bld) [Volume fraction] 43.8 % 36.3 - 47.1 % [place] Hemoglobin (Bld) [Mass/Vol] 13.6 g/dL 11.9 - 15.1 g/dL [place] Immature granulocytes (Bld) [#/Vol] 1 % High 0 [place] Immature granulocytes (Bld) [#/Vol] 0.05 10*3/uL [place] Interpretation and review of laboratory results Abnormal [place] Lymphocytes (Bld) [#/Vol] 3.08 10*3/uL [place] Lymphocytes/100 WBC (Bld) 32 % 24 - 43 % [place] MCH (RBC) [Entitic mass] 30.0 pg 25.2 - 33.5 pg [place] MCHC (RBC) [Mass/Vol] 31.1 g/dL 28.4 - 34.8 g/dL [place] MCV (RBC) [Entitic vol] 96.7 fL 82.6 - 102.9 fL [place] Monocytes (Bld) [#/Vol] 0.73 10*3/uL [place] Monocytes/100 WBC (Bld) 8 % 3 - 12 % [place] Platelet mean volume (Bld) [Entitic vol] 9.8 fL 8.1 - 13.5 fL [place] Platelets (Bld) [#/Vol] 278 10*3/uL [place] Platelets (Bld) [#/Vol] NOT REPORTED [place] RBC (Bld) [#/Vol] 4.53 10*6/uL 3.95 - 5.1 1 m/uL [place] RBC morphology finding Nom (Bld) NOT REPORTED [place] Segmented neutrophils/100 WBC (Bld) 56 % 36 - 65 % [place] Segs Absolute 5.63 [place] WBC (Bld) [#/Vol] 9.8 10*3/uL [place] WBC (Bld) [#/Vol] 0.0 10*3/uL 0.0 per 10 0 WBC [place] WBC Morphology NOT REPORTED [place] Comprehensive Metabolic Pane uriel 10-18-2019 Albumin [Mass/Vol] 4 g/dL 3.5 - 5.2 g/dL [place] Albumin/Globulin [Mass ratio] 1.4 {ratio} [place] ALP [Catalytic activity/Vol] 67 U/L 35 - 104 U/L [place] ALT [Catalytic activity/Vol] 13 U/L 5 - 33 U/L [place] Anion gap [Moles/Vol] 8 mmol/L Low 9 - 17 mmol/L [place] AST [Catalytic activity/Vol] 18 U/L <32 [place] Bilirubin Ql (U) 0.50 mg/dL 0.3 - 1.2 mg/dL [place] Bun/Cre Ratio 21 High [place] Calcium [Mass/Vol] 9.5 mg/dL 8.6 - 10. 4 mg/dL [place] Chloride [Moles/Vol] 107 mmol/L 98 - 10 7 mmol/L [place] CO2 [Moles/Vol] 28 mmol/L 20 - 31 mmol/L [place] Creatinine [Mass/Vol] 0.8 mg/dL 0.5 - 0.9 mg/dL [place] GFR >60 >60 mL/min [place] GFR Non- >60 >60 mL/min [place] Glucose [Mass/Vol] 110 mg/dL High 70 - 99 mg/dL [place] Interpretation and review of laboratory results Abnormal [place] Potassium [Moles/Vol] 5.6 mmol/L High 3.7 - 5.3 mmol/L [place] Protein [Mass/Vol] 6.9 g/dL 6.4 - 8.3 g/dL [place] Sodium [Moles/Vol] 143 mmol/L 135 - 144 mmol/L [place] Urea nitrogen [Mass/Vol] 17 mg/dL 8 - 23 mg/dL [place] Lipid Panelon 10-18-2019 Cholesterol [Mass/Vol] 149 mg/dL <200 [place] Comment on above: Cholesterol Guidelines: <200 Desirable 200-240 Borderline >240 Undesirable Cholesterol in HDL [Mass/Vol] 59 mg/dL >40 [place] Comment on above: HDL Guidelines: <40 Undesirable 40-59 Borderline >59 Desirable Cholesterol in LDL [Mass/Vol] 77 mg/dL 0 - 130 mg/dL [place] Comment on above: LDL Guidelines: <100 Desirable 100-129 Near to/above Desirable 130-159 Borderline >159 Undesirable Direct (measured) LDL and calculated LDL are not interchangeable tests. Cholesterol in VLDL [Mass/Vol] NOT REPORTED 1 - 30 mg/dL [place] Cholesterol.total/Chol esterol in HDL [Mass ratio] 2.5 {ratio} <5 [place] Triglyceride [Mass/Vol] 63 mg/dL <150 [place] Comment on above: Triglyceride Guidelines: <150 Desirable 150-199 Borderline 200-499 High >499 Very high Based on AHA Guidelines for fasting triglyceride, January 2012. Metabolic Panelon 10-18-2019 GFR/1.73 sq M predicted among non-blacks MDRD (S/P/Bld) [Vol rate/Area] [place] Comment on above: Stage 1: Some [...] body mass. Additional eGFR calculator available at: http://www.[employer]/multiple_crcl_2012.htm CBC Auto DifferentialOrdered By: Aye Nevarez on 04-22-2019 [employer] # 0.25 [facility] Work Phone: Absolute Immature Granulocyte 0.04 [facility] Work Phone: [employer] Lymph # 3.17 [facility] Work Phone: [employer] Alcorn # 0.67 [employer] [facility] Work Phone: Basophils (Bld) [#/Vol] 0.10 10*3/uL [employer] Phone: Basophils/100 WBC (Bld) 1 % 0 - 2 % [employer] Phone: Differential Type NOT REPORTED [employer] Phone: Eosinophils/100 WBC (Bld) 3 % 1 - 4 % [employer] Phone: Erythrocyte distribution width (RBC) [Ratio] 12.6 % 11.8 - 14.4 % [employer] Phone: Hematocrit (Bld) [Volume fraction] 43.9 % 36.3 - 47.1 % [employer] Phone: Hemoglobin (Bld) [Mass/Vol] 13.7 g/dL 11.9 - 15.1 g/dL [employer] Phone: Immature granulocytes/100 WBC (Bld) 1 % High 0 [employer] Phone: Interpretation and review of laboratory results Abnormal [employer] Phone: Lymphocytes/100 WBC (Bld) 36 % 24 - 43 % [employer] Phone: MCH (RBC) [Entitic mass] 30.0 pg 25.2 - 33.5 pg [employer] Phone: MCHC (RBC) [Mass/Vol] 31.2 g/dL 28.4 - 34.8 g/dL [employer] Phone: MCV (RBC) [Entitic vol] 96.3 fL 82.6 - 102.9 fL [employer] Phone: Monocytes/100 WBC (Bld) 8 % 3 - 12 % [employer] Phone: NRBC Automated 0.0 0.0 per 100 WBC [employer] Phone: Platelet Estimate NOT REPORTED [employer] Phone: Platelet mean volume (Bld) [Entitic vol] 9.1 fL 8.1 - 13.5 fL [employer] Phone: Platelets (Bld) [#/Vol] 308 10*3/uL [employer] Phone: RBC (Bld) [#/Vol] 4.56 10*6/uL 3.95 - 5.1 1 m/uL [employer] Phone: RBC morphology finding Nom (Bld) NOT REPORTED [employer] Phone: Segmented neutrophils/100 WBC (Bld) 51 % 36 - 65 % [employer] Phone: Segs Absolute 4.47 [employer] Work Phone: WBC (Bld) [#/Vol] 8.7 10*3/uL [employer] Phone: WBC Morphology NOT REPORTED [facility] Work Phone: Comprehensive Metabolic Pane lOrdered By: Aye Nevarez on 04-22-2019 Albumin [Mass/Vol] 4 g/dL 3.5 - 5.2 g/dL [employer] Phone: Albumin/Globulin [Mass ratio] 1.3 {ratio} [employer] Phone: ALP [Catalytic activity/Vol] 71 U/L 35 - 104 U/L [employer] Phone: ALT [Catalytic activity/Vol] 11 U/L 5 - 33 U/L [employer] Phone: Anion gap [Moles/Vol] 10 mmol/L 9 - 17 mmol/L [employer] Phone: AST [Catalytic activity/Vol] 16 U/L <32 [employer] Phone: Bilirubin [Mass/Vol] 0.43 mg/dL 0.3 - 1 .2 mg/dL [employer] Phone: Bun/Cre Ratio 19 [employer] Work Phone: Calcium [Mass/Vol] 9.7 mg/dL 8.6 - 10. 4 mg/dL [facility] Phone: Chloride [Moles/Vol] 102 mmol/L 98 - 10 7 mmol/L [employer] Phone: CO2 [Moles/Vol] 26 mmol/L 20 - 31 mmol/L [employer] Phone: Creatinine [Mass/Vol] 0.69 mg/dL 0.5 - 0.9 mg/dL [facility] Phone: GFR >60 >60 mL/min [employer] Phone: GFR Comment [facility] Phone: Comment on above: Average GFR for 70 o r more years old: 75 mL/min/1.73sq m Chronic Kidney Disease: <60 mL/min/1.73sq m Kidney failure: <15 mL/min/1.73sq m eGFR calculated using average adult body mass. Additional eGFR calculator available at: http://www.[employer]multiple_crcl_2012.htm GFR Non- >60 >60 mL/min [facility] Phone: GFR Staging [facility] Phone: Comment on above: Stage 1: Some kidney damage normal GFR Stage 2: Mild kidney damage GFR 60-89 Stage 3: Moderate kidney damage GFR 30-59 Stage 4: Severe kidney damage GFR 15-29 Stage 5: Severe kidney damage GFR <15 ESRD - chronic treatment by dialysis or transplant Glucose [Mass/Vol] 104 mg/dL High 70 - 99 mg/dL [facility] Phone: Interpretation and review of laboratory results Abnormal [employer] Phone: Potassium [Moles/Vol] 4.7 mmol/L 3.7 - 5.3 mmol/L [employer] Phone: Protein [Mass/Vol] 7.1 g/dL 6.4 - 8.3 g/dL [employer] Phone: Sodium [Moles/Vol] 138 mmol/L 135 - 144 mmol/L [employer] Phone: Urea nitrogen [Mass/Vol] 13 mg/dL 8 - 23 mg/dL [employer] Phone: Lipid PanelOrdered By: Aey Nevarez on 04-22-2019 Cholesterol [Mass/Vol] 155 mg/dL <200 [employer] Phone: Comment on above: Cholesterol Guidelines: <200 Desirable 200-240 Borderline >240 Undesirable Cholesterol in HDL [Mass/Vol] 52 mg/dL >40 [employer] Phone: Comment on above: HDL Guidelines: <40 Undesirable 40-59 Borderline >59 Desirable Cholesterol in LDL [Mass/Vol] 80 mg/dL 0 - 130 mg/dL [employer] Phone: Comment on above: LDL Guidelines: <100 Desirable 100-129 Near to/above Desirable 130-159 Borderline >159 Undesirable Direct (measured) LDL and calculated LDL are not interchangeable tests. Cholesterol.total/Chol esterol in HDL [Mass ratio] 3 {ratio} <5 [employer] Phone: Triglyceride [Mass/Vol] 114 mg/dL <150 [employer] Phone: Comment on above: Triglyceride Guidelines: <150 Desirable 150-199 Borderline 200-499 High >499 Very high Based on AHA Guidelines for fasting triglyceride, January 2012. 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 Scattered foci of blooming artifact on susceptibility weighted imaging that is nonspecific and may relate to hypertensive microangiopathy versus amyloid angiopathy. [place] EXAMINATION: MRI OF THE BRAIN WITHOUT [...] The soft tissues demonstrate no acute abnormality. [place], [place] Romero, M[employer] Incoming Radiant Results From [employer] - 02/12/2019 2:18 PM EST EXAMINATION: MRI [...] relate to hypertensive microangiopathy versus amyloid angiopathy. [place] TSH without Reflexon 019 TSH Qn 4.31 m[IU]/L [place] Comprehensive Metabolic Pane uriel 12-26-2018 Albumin [Mass/Vol] 3.8 g/dL 3.5 - 5.2 g/dL [place] Albumin/Globulin [Mass ratio] 1.3 {ratio} [place] ALP [Catalytic activity/Vol] 72 U/L 35 - 104 U/L [place] ALT [Catalytic activity/Vol] 9 U/L 5 - 33 U/L [place] Anion gap [Moles/Vol] 11 mmol/L 9 - 17 mmol/L [place] AST [Catalytic activity/Vol] 14 U/L <32 [place] Bilirubin Ql (U) 0.43 mg/dL 0.3 - 1.2 mg/dL [place] Bun/Cre Ratio 14 [place] Calcium [Mass/Vol] 9.5 mg/dL 8.6 - 10. 4 mg/dL [place] Chloride [Moles/Vol] 102 mmol/L 98 - 10 7 mmol/L [place] CO2 [Moles/Vol] 24 mmol/L 20 - 31 mmol/L [place] Creatinine [Mass/Vol] 0.74 mg/dL 0.5 - 0.9 mg/dL [place] GFR >60 >60 mL/min [place] GFR Non- >60 >60 mL/min [place] Glucose [Mass/Vol] 110 mg/dL High 70 - 99 mg/dL [place] Interpretation and review of laboratory results Abnormal [place] Potassium [Moles/Vol] 4.8 mmol/L 3.7 - 5.3 mmol/L [place] Protein [Mass/Vol] 6.8 g/dL 6.4 - 8.3 g/dL [place] Sodium [Moles/Vol] 137 mmol/L 135 - 144 mmol/L [place] Urea nitrogen [Mass/Vol] 10 mg/dL 8 - 23 mg/dL [place] Lipid Panelon 12-26-2018 Cholesterol [Mass/Vol] 175 mg/dL <200 [place] Comment on above: Cholesterol Guidelines: <200 Desirable 200-240 Borderline >240 Undesirable Cholesterol in HDL [Mass/Vol] 51 mg/dL >40 [place] Comment on above: HDL Guidelines: <40 Undesirable 40-59 Borderline >59 Desirable Cholesterol in LDL [Mass/Vol] 106 mg/dL 0 - 130 mg/dL [place] Comment on above: LDL Guidelines: <100 Desirable 100-129 Near to/above Desirable 130-159 Borderline >159 Undesirable Direct (measured) LDL and calculated LDL are not interchangeable tests. Cholesterol in VLDL [Mass/Vol] NOT REPORTED 1 - 30 mg/dL [place] Cholesterol.total/Chol esterol in HDL [Mass ratio] 3.4 {ratio} <5 [place] Triglyceride [Mass/Vol] 90 mg/dL <150 [place] Comment on above: Triglyceride Guidelines: <150 Desirable 150-199 Borderline 200-499 High >499 Very high Based on AHA Guidelines for fasting triglyceride, January 2012. Metabolic Panelon 12-26-2018 GFR/1.73 sq M predicted among non-blacks MDRD (S/P/Bld) [Vol rate/Area] [place] Comment on above: Stage 1: Some [...] body mass. Additional eGFR calculator available at: http://www.[employer]/multiple_crcl_2012.htm Vital Signs Date Time Vital Sign Value Performing Clinician Gasper hess 10-20-2020 18:30-0400 Body temperature 98.6 [degF] Radu Worrell MD Work Phone: [employer] Work Phone: 10-20-2020 18:30-0400 Diastolic blood pressure 53 mm[Hg] Radu Worrell MD Work Phone: [employer] Work Phone: 10-20-2020 18:30-0400 Heart rate 77 /min Radu Worrell MD Work Phone: [employer] Work Phone: 10-20-2020 18:30-0400 Respiratory rate 15 /min Radu Worrell MD Work Phone: [employer] Work Phone: 10-20-2020 18:30-0400 SaO2% (BldA) [Mass fraction] 96 % Radu Worrell MD Work Phone: [employer] Work Phone: 10-20-2020 18:30-0400 Systolic blood pressure 120 mm[Hg] Radu Worrell MD Work Phone: [employer] Work Phone: 10-20-2020 08:43-0400 Body height 149.9 cm Radu Worrell MD Work Phone: [employer] Work Phone: 10-20-2020 08:30-0400 Body mass index (BMI) [Ratio] 32.03 kg/m2 Radu Worrell MD Work Phone: [employer] Work Phone: 10-20-2020 08:30-0400 Body weight 71.94 kg Radu Worrell MD Work Phone: [employer] Work Phone: 08-05-2020 11:44-0400 Body temperature 98.8 [degF] Jungsik Kin DO Work Phone: [employer] Work Phone: 08-05-2020 11:44-0400 Diastolic blood pressure 66 mm[Hg] Jungsik Kin DO Work Phone: [employer] Work Phone: 08-05-2020 11:44-0400 Heart rate 80 /min Amorcytesik Kin DO Work Phone: [employer] Work Phone: 08-05-2020 11:44-0400 Respiratory rate 18 /min Amorcytesik Kin DO Work Phone: [employer] Work Phone: 08-05-2020 11:44-0400 SaO2% (BldA) [Mass fraction] 98 % Amorcytesik Kin DO Work Phone: [employer] Phone: 08-05-2020 11:44-0400 Systolic blood pressure 146 mm[Hg] Amorcytesik Kin DO Work Phone: [employer] Phone: 08-04-2020 00:52-0400 Body height 149.9 cm Amorcytesik Kin DO Work Phone: [employer] Phone: 08-04-2020 00:52-0400 Body mass index (BMI) [Ratio] 32.74 kg/m2 Amorcytesik Kin DO Work Phone: [employer] Phone: 08-04-2020 00:52-0400 Body weight 73.53 kg Amorcytesik Kin DO Work Phone: [employer] Phone: Encounters Encounter Date Encounter Type Care Provider Facility Start: 05-09-2023 End: 05-10-2023 ambulatory AYE ROQUE [facility] Start: 07-18-2022 End: 07-19-2022 ambulatory KEVIN STEINER Facility:H1 Start: 07-08-2022 End: 07-08-2022 ambulatory ANN GEOFFREY ZHOU . Facility:H1 Start: 09-23-2021 End: 09-24-2021 [facility] Start: 09-23-2021 End: 09-23-2021 Subsequent hospital visit by physician Aye Nevarez DO Work Phone: [facility] Start: 04-28-2021 End: 04-29-2021 ambulatory [facility] Start: 10-19-2020 End: 10-21-2020 Evaluation and management of inpatient AYE Thomas [facility] Start: 10-19-2020 End: 10-20-2020 Evaluation and management of inpatient Radu Worrell MD Work Phone: [facility] Comment on above: Generalized weakness (Primary Dx); Mild dehydration; Acute cystitis without hematuria Start: 08-04-2020 End: 08-05-2020 ambulatory [facility] Start: 08-04-2020 End: 08-05-2020 Subsequent hospital visit by physician Damián Sanderson DO Work Phone: [facility] [employer] Start: 05-13-2020 End: 05-15-2020 Subsequent hospital visit by physician Latha [facility] Imaging Room [facility] Vascular Lab Comment on above: Pain of right upper arm; Swollen vein Start: 02-25-2020 End: 02-25-2020 Subsequent hospital visit by physician Aye Nevarez [facility] Start: 10-18-2019 End: 10-18-2019 Subsequent hospital visit by physician Aye Nevarez [facility] Start: 04-22-2019 End: 04-22-2019 Subsequent hospital visit by physician Aye Nevarez DO Work Phone: [facility] Start: 02-12-2019 End: 02-14-2019 Subsequent hospital visit by physician Azul Mri Scanner [facility] MRI Comment on above: Lewy body [...] Author Start: 04-28-2022 Lipid panel Lipids [facility] [employer] Start: 12-09-2021 Influenza vaccination Flu vacc ine (Season Ended) [facility] [employer] Start: 10-20-2021 Creatinine measurement Creatinine mo [facility] [employer] Work Phone: Start: 10-20-2021 Potassium monitoring Potassium monit [facility] [place] [facility] Work Phone: Start: 08-05-2021 Creatinine measurement [facility] Work Phone: Start: 08-05-2021 Potassium monitoring Potassium monit [facility] [place] [facility] Work Phone: Start: 02-24-2021 Creatinine measurement Creatinine mo [place], [place] Start: 02-24-2021 Lipid panel Lipid screen [place], [place] Start: 02-24-2021 Potassium monitoring Potassium monit [place] Start: 12-09-2020 Influenza vaccination [facility] [employer] Work Phone: Start: 10-17-2020 Creatinine measurement Creatinine mo [place] Start: 10-17-2020 Lipid panel Lipid screen [place], [place] Start: 10-17-2020 Potassium monitoring Potassium monit [place] Start: 04-22-2020 Creatinine measurement Creatinine mo nitoring [place], [place] Start: 04-22-2020 Lipid panel Lipid [place] Start: 04-22-2020 Potassium monitoring Potassium monit [place] Start: 12-27-2019 Creatinine monitoring Creatinine mon [place], [place] Start: 12-27-2019 Lipid screen Lipid [place] Start: 12-27-2019 Potassium monitoring Potassium monit [place] Start: 12-10-2019 Influenza vaccination Flu vaccine (# 1) [place] Start: 07-18-2019 Creatinine monitoring Creatinine mon [place] Start: 07-18-2019 Potassium monitoring Potassium monit [place] Start: 12-09-2018 Influenza vaccination Flu vaccine (# 1) [place] Start: 09-30-2018 Annual Wellness Visi t (AWV) Annual Wellness Visit (AWV) [place] Start: 12-30-2004 DEXA (modify frequen cy per FRAX score) DEXA (modify frequency per FRAX score) [place] Start: 12-30-2004 Pneumococcal 65+ yea rs Vaccine (1 - PCV) Pneumococcal 65+ years Vaccine (1 - PCV) [facility] Start: 12-30-2004 Pneumococcal 65+ yea rs Vaccine (1 of 1 - PPSV23) Pneumococcal 65+ years Vaccine (1 of 1 - PPSV23) [place] Start: 12-30-2004 Pneumococcal 65+ yea rs Vaccine (1 of 2 - PCV13) Pneumococcal 65+ years Vaccine (1 of 2 - PCV13) [place] Start: 12-30-1994 Screening for osteoporosis DEXA (modify frequency per FRAX score) [facility] Start: 12-30-1989 Shingles Vaccine (1 of 2) Shingles Vaccine (1 of 2) [facility] Start: 12-30-1958 DTaP/Tdap/Td vaccine (1 - Tdap) DTaP/Tdap/Td vaccine (1 - Tdap) [facility] Start: 1955 COVID-19 Vaccine (1 of 2) COVID-19 Vaccine (1 of 2) [facility] [place] Start: 1955 COVID-19 Vaccine (1) COVID-19 Vaccin e (1) [employer] Phone: Start: 1951 COVID-19 Vaccine (1) COVID-19 Vaccin e (1) [employer] Phone: Start: 1951 Depression Screen Depression Screen [facility] [employer] Start: 12-30-1950 DTaP/Tdap/Td vaccine (1 - Tdap) DTaP/Tdap/Td vaccine (1 - Tdap) [employer] Phone: Start: 12-30-1944 COVID-19 Vaccine (1) COVID-19 Vaccin e (1) [facility] [employer] Start: 1940 Annual Wellness Visi t (AWV) Annual Wellness Visit (AWV) [facility] [employer] End: 08-06-2020 Basic metabolic 2000 panel - Serum or Plasma Basic Metabolic Panel Lab Routine Tomorrow AM for 1 Occurrences starting 08/06/2020 until 08/06/2020 [employer] Phone: Comment on above: Tomorrow AM for 1 Oc currences starting 08/06/2020 until 08/06/2020 End: 08-06-2020 CBC panel - Blood by Automated count CBC Lab Routine Tomorrow AM for 1 Occurrences starting 08/06/2020 until 08/06/2020 [employer] Phone: Comment on above: Tomorrow AM for 1 Oc currences starting 08/06/2020 until 08/06/2020 Culture, Blood [facility] Work Phone: End: 02-12-2019 Lyme Ab Lyme Ab Lab Routine Once for 1 Occurrences starting 02/12/2019 until 02/12/2019 [place] Comment on above: Once for 1 Occurrenc es starting 02/12/2019 until 02/12/2019 Lyme Ab Lyme Ab Lab Rout ine 02/12/2019 12:32 PM EST [facility] Oxygen therapy [[facility] Data Set] [employer] Work Phone: Comment on above: Daily until disconti nued starting 08/04/2020 Daily until disconti nued starting 10/19/2020 Vitamin B12 & Folate Vitamin B12 & Folate Lab Routine 02/12/2019 12:32 PM EST [facility] Payers Date Payer Category Payer Medicare MEDICARE MEDICAR E PART A AND B xxxxxxxxxxx 2015-Present [id number] [place] [id number] xxxxxxxxxxx [id number] 2015 Medicare MEDICARE MEDICAR E PART A AND B [id number] 2015-Present [id number] [place] [id number] 2015 Medicare MEDICARE MEDICAR E PART A AND B [id number] 2015-Present [phone] [place] [address] [id number] 1959 Medicare [id number] 1940 Unknown [id number] 1940 Unknown [id number] 1940 Unknown [id number] 1940 Unknown [id number] 1940 Unknown [id number] 1940 Unknown [id number] 1940 Unknown [id number] 6 Social History Date Type Detail Facility Start: 04-14-2015 End: 12-19-2017 Tobacco smoking status NHIS Former smoker [place], [place] History of tobacco use Cigarette Smoker [place] Start: 04-14-2015 End: 12-19-2017 Cigarettes smoked current (pack per day) - Reported [place] Start: 12-19-2017 Alcohol intake No [place], [place] Start: 11-25-2015 Tobacco Comment QUIT 1998 [place], [place] Start: 01-02-2017 Alcohol Comment very occasional [place], [place] Start: 1940 Sex Assigned At Not on file [place], [place] Start: 04-14-2015 End: 12-19-2017 Tobacco use and exposure Never used [place] Start: 12-19-2017 End: 10-19-2020 Alcohol intake Current non-drinker of alcohol (finding) [facility] Work Phone: Exposure to SARS-CoV -2 (event) Not sure [facility] History of Present illness Narrative 10-20-2020 Dahiana Kilgore RN - 10/20/2020 10:06 PM Dahiana Linn RN - 10/20/2020 9:00 PM Dahiana Linn RN - 10/20/2020 8:40 PM Yaquelin Bennett RN - 10/20/2020 8:35 PM EDT Note Date & Type Note Facility 10-20-2020 History of Present illness Narrative Patient's family arrived and magnetic tape typewriter operator bagged up her personal items. AMA paperwork was signed by patient's POA. Logistics Technician took patient down via wheelchair. Logistics Technician educated patient and family about home safety. Patient is refusing to take all medications. Logistics Technician checked the locked cupboard for patient's personal items and gave her the bag of her clothes. Patient did not arrive in shoes. Logistics Technician also called supervisor beet end to update her. Patient is refusing to sign AMA paperwork. Logistics Technician removed patient left AC IV at this time. Logistics Technician called and spoke with Miracle, patient's POA. Miracle states she will pick her up. Logistics Technician passed phone to patient so she could speak with her daughter. Patient insisted that she would start walking home even after speaking with her daughter. Security remains in the room with patient. Dr. Cerda returned the call. Logistics Technician updated him on the patient and the situation. Dr. Cerda states that can sign out AMA and to make sure she gets a ride home. Logistics Technician will call patient's POA. Security at bedside with patient at this time. Patient has agreed to sit in chair but is still persistent on walking home at this time if daughter does not come and molded goods spot picker patient. Security to remain at bedside. Logistics Technician has been in room with patient while [...] sit down on the bed or chair. Logistics Technician standing next to patient to ensure patient [...] in room phone multiple times of which magnetic tape typewriter operator handed patient the phone. Patient accused daughter of lying to her when daughter attempted to explain that patient was in the hospital and why she was brought in. Patient hung up on daughter multiple times even after daughter calling back multiple times. Logistics Technician continued to request for patient to sit down for patient's safety of which patient got verbally aggressive with magnetic tape typewriter operator. Logistics Technician to continue to be in room with patient til security arrives. Logistics Technician called security to sit with patient. Patient is verbally aggressive, swearing at staff. She states that she will walk home with or without her shoes while trying to shove past nursing staff. Patient is walking around the room and searching for her shoes and personal items. Patient is agitated and removed her IV. Logistics Technician was alerted when her bed alarm went off. Logistics Technician and second nurse cleaned her up and got her a new gown. Patient was confused and would not believe that she was in the hospital. Logistics Technician will call Dr. Cerda for an update and orders. Patient got up from the bed without using her call light. Logistics Technician responded to the bed alarm. When asked what she was doing, patient responded I'm walking out of here. Logistics Technician reminded patient that she was in the hospital and would not be able to leave during the night. Patient complied with this and got back in bed. Bed alarm was reset and patient was educated on using the call light again. Will continue to monitor and assess. Pt. Offered assistance with bathing, pt. Declines. Physical Therapy Facility/Department: [facility] Daily Treatment Note NAME: Lilliana Patel : 1940 Date of Service: 10/20/2020 Discharge Recommendations: Continue to assess pending progress, Subacute/Fdc Facility, Home with Home health PT Assessment [...] will perform transfers and bed mobility with [place] Short term goal 3: Patient will tolerate [...] In 1120 Time Out 1201 Minutes 41 [facility] Met with Patient this a.m. and spoke with daughter, via telephone conversation, re: Patient discharge plans. Patient is an 79 year old , white female, admitted with a diagnosis of Inability to Walk. Patient has a secondary diagnosis of dementia noted. 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 [facility] is OK with daughter as well. Patient lives alone in [place]. She uses a walker, cane, wheelchair, shower [...] assistance with this expense. Referral made to [facility] this a.m. Telephone voicemail message left for their community health coordinator as well. Patient remains a 'Full Code' status and does not have medical directives currently on file. No further discharge planning needs are identified by Patient or her daughter at this point. MARKET SALES MANAGER to assist with discharge placement as appropriate [...] loss Fluid Accumulation: 1 - Mild Extremities Teletype Or Varitype Keyboard Operator Strength: Not Performed Estimated Daily Nutrient Needs: Energy (kcal): 2984-0038 (15-18); Weight Used for Energy Requirements: Current Protein (g): 54-63 (1.2-1.4); Weight Used for Protein Requirements: [place] Fluid (ml/day): 1300+; Method Used for Fluid [...] lb 1.6 oz (73.5 kg) (08/04 encounter) [place] Body Weight: 95 lbs; % [place] Body Weight 166.9 % BMI: 32 BMI [...] No discharge needs at this time Contact: [phone] Images from the original note were not included. [facility] Herbal Suspension To avoid potential drug interactions with herbal and nutritional supplements, it is the policy of [facility] to suspend all orders for these products at the time of admission. Per hospital policy the following herbal/nutritional supplements were suspended during the hospital stay: Fish oil Thank you, Melina Santos [facility], 10/20/2020, 7:26 AM Logistics Technician to bedside, pt activated bed alarm. Upon [...] Bed alarm on. documented in this encounter [employer] Phone: History of Present illness Narrative 08-05-2020 Daniela Duggan OT - 08/05/2020 3:23 PM Jose Rai - 08/05/2020 3:20 PM Darlyn Copeland MD - 08/05/2020 1:[address], LD - 08/05/2020 10:43 AM EDT Note Date & Type Note Facility 08-05-2020 History of Present illness Narrative [facility] OCCUPATIONAL THERAPY MISSED TREATMENT NOTE STRJony GATICA 4A 019-A Date: 08/05/2020 Patient Name: Lilliana Patel CSN: [id number] : 1940 (79 y.o.) Gender: female REASON FOR MISSED TREATMENT: Upon 1st attempt, pt was sound asleep as she was given haldol and ativan early this morning, upon 2nd attempt, pt became very agitated refusing participation in OT. Will check back later as time allows. [facility] INPATIENT PHYSICAL THERAPY DAILY NOTE SUHAIL Ramirez - 4A-019-A Time In: 1451 Time Out: 1515 Timed Code Treatment Minutes: 24 Minutes Minutes: 24 Date: 08/05/2020 Patient Name: Lilliana Patel, Gender: female : 1940 (79 y.o.) Referring Practitioner: Jack Mensah MD Diagnosis: AMS (altered mental status) Additional Pertinent Hx: Per H&P 79-year-old female patient who is a direct admission from [facility] ED where she presented with [...] Ambulation Assistance: Independent Transfer Assistance: Independent Active Belt Buckle Maker: No Additional Comments: pt mod I prior [...] mod I for safe enter/exit of home half-way goals Time Frame for half-way goals : NA due to short ELOS Following session, patient left in safe position with all fall risk precautions in place. Images from the original note were not included. Hospitalist Progress Note Patient: Lilliana Patel Unit/Bed:[facility]19/019-A Date of : 1940 Acct: [id number] PCP: Aye Nevarez DO Date of Admission: [...] patient who is a direct admission from [facility] ED where she presented with [...] questions) Estimated Daily Nutrient Needs: Energy (kcal): 6695-5593 kcals (15-18 kcals/kg/day); Weight Used for Energy Requirements: Current(74 kg 08/04/20) Protein (g): 54-90 grams (1.2-2 grams/kg IBW/day); Weight Used for Protein Requirements: [place](45 kg (adjusted IBW)) Nutrition Related Findings: Pt [...] unable to state. Per EMR: 08/29/18: 225#) [place] Body Weight: 95 lbs; BMI: 32.7 Adjusted [...] wants us to leave her alone. 255- [place] security left unit after patient safely back into bed. This nurse attempted to place new IV catheter as the previous on had been pulled. She attempted to swing at staff still remaining in the room. Patient received medication to help calm her down. Family called with no answer. [facility] INPATIENT PHYSICAL THERAPY EVALUATION [facility] 4A - 4A-19/019-A Time In: 1424 Time Out: 1449 Timed Code Treatment Minutes: 15 Minutes Minutes: 25 Date: 08/04/2020 Patient Name: Lilliana Patel, Gender: female : 1940 (79 y.o.) Referring Practitioner: Jack Mensah MD Diagnosis: AMS (altered mental status) Additional Pertinent Hx: Per H&P 79-year-old female patient who is a direct admission from [facility] ED where she presented with [...] Ambulation Assistance: Independent Transfer Assistance: Independent Active Belt Buckle Maker: No Additional Comments: pt mod I prior [...] Measures: Completed Dynamic Gait Total Score: 15 AM-[facility] Inpatient Mobility Raw Score : 18 AM-[facility] Inpatient T-Scale Score : 43.63 ASSESSMENT: Activity [...] mod I for safe enter/exit of home half-way goals Time Frame for half-way goals : NA due to short ELOS Following session, patient left in safe position with all fall risk precautions in place. Twan Escobedo PT, DPT [id number] Pt's daughter, Margaret called for a pt update and plan of care. HIPPA code provided. All concerns and questions were addressed. This RN contacted Dr. Mensah with the hospitalist team via [facility] serve message about pt has requested to go home. This RN have tried to explain to her that she needs to have the MRI done and needs to see Dr. Verdugo. Pt has become agreeable for now but she has informed this RN she does not want to be sent to a usp. Patient admitted to Room 19 via direct [...] declines family notification. documented in this encounter [employer] Phone: Clinical Note 08-04-2020 Note Date & [...] by: Gracie Kruse MD 08/04/20 Final result [facility] Clinical Note 08-04-2020 Note Date & Type [...] The brainstem and pituitary gland are normal. [employer] Phone: Evaluation note Note Date & Type Note Facility Evaluation note Diagnosis Seizure disorder (HCC)- Primary Unspecified epilepsy without mention of intractable epilepsy AMS (altered mental status) Essential hypertension Unspecified essential hypertension Bilateral carotid bruits TSH elevation Other abnormal blood chemistry documented in this encounter [employer] Phone: Evaluation note Note Date & Type Note Facility Evaluation note Diagnosis Inability to walk- Primary Difficulty in walking Generalized weakness Other malaise and fatigue Mild dehydration Dehydration Acute cystitis without hematuria Acute cystitis Essential hypertension Unspecified essential hypertension Dehydration documented in this encounter [employer] Phone: Hospital Discharge instructions Attachments Note Date & Type Note Facility Hospital Discharge instructions The following attachments cannot be sent through Care Everywhere.Dementia: General Info (Botswanan)documented in this encounter [employer] Phone: Reason for Referral Status Reason Specialty Diagnoses / Procedures Referre d By Contact Referred To Contact [facility] Diagnoses Lewy body dementia without behavioral disturbance (HCC) Procedures MRI BRAIN WO CONTRAST Shubham Deshpande [address] [place] [address] Status Reason Specialty Diagnoses / Procedures Referred By Contact Referred To Contact Closed Vascular Lab Diagnoses Pain of right upper arm Swollen vein Procedures VL DUP UPPER EXTREMITY VENOUS RIGHT Aye Nevarez, DO [address] [place] [address] [facility] Vascular Lab [address] [place] [address] Assessments Diagnosis Lewy body dementia without behavioral disturbance (HCC) Dementia with Lewy bodies Diagnosis Pain of right upper arm Pain in limb Swollen vein Advance Directives No Advanced Directives Records FoundDocuments on File Type Date Recorded Patient Telegraphic Typewriter Installer Expl anation Advance Directives and Living Will Power of Patient Coordinator Front Desk Latest Code Status on File Code Status Date Activated Date Inactivated Comments Full Code 12/02/2015 1:49 PM 12/02/2015 5:12 PM Documents on File Type Date Recorded Patient Telegraphic Typewriter Installer Expl anation Advance Directives and Living Will Power of Patient Coordinator Front Desk Latest Code Status on File Code Status Date Activated Date Inactivated Comments Full Code 12/02/2015 1:49 PM 12/02/2015 5:12 PM Documents on File Type Date Recorded Patient Telegraphic Typewriter Installer Expl anation ACP-Advance Directive ACP-Power of Patient Coordinator Front Desk Documents on File Type Date Recorded Patient Telegraphic Typewriter Installer Expl anation ACP-Advance Directive ACP-Power of Patient Coordinator Front Desk Latest Code Status on File Code Status Date Activated Date Inactivated Comments Full Code 08/04/2020 3:05 AM Full Code 12/02/2015 1:49 PM 12/02/2015 5:12 PM Latest Code Status on File Code Status Date Activated Date Inactivated Comments Full Code 10/19/2020 10:31 PM Full Code 08/04/2020 3:05 AM 08/05/2020 7:26 PM Healthcare Agents on File Name Relationship Healthcare Agent [facility] p Communication Margaret Salcedo Child [...] BRAIN WO CTRST BryanShubham francisco [address] [place] [address] [facility] Mri [address] [place] [address] Status Reason Specialty Diagnoses / Procedures Referred By Contact Referred To Contact Closed Vascular Lab Diagnoses Pain of right upper arm Swollen vein Procedures VL DUP UPPER EXTREMITY VENOUS RIGHT Aye Nevarez DO [address] [place] [address] [facility] Vascular Lab [address] [place] [address] Reason Comments Status Reason Specialty Diagnoses / Procedures Referre d By Contact Referred To Contact Diagnoses AMS (altered mental status) Altered Mental status Darien Ferrara MD [address] [place] [address] [facility] Reason Comments Fatigue patient started feel ing weak a couple days ago Status Reason Specialty Diagnoses / Procedures Referre d By Contact Referred To Contact Diagnoses Inability to walk Casandra Cerda MD [address] [place] [address] [facility] Ordered Prescriptions (unrec ognized section and content) Prescription Sig Dispensed Refills Start Date End Da te QUEtiapine (SEROQUEL) 25 MG tablet Take 1 tablet by mouth nightly 60 tablet 3 08/05/2020 INFORMATION SOURCE (unrecogn ized section and content) DATE CREATED AUTHOR 08/12/2020 [facility] DATE CREATED AUTHOR AUTHOR'S ORGANIZ ATION 09/24/2021 [facility] DATE CREATED AUTHOR AUTHOR'S ORGANIZ ATION 07/20/2022 [facility] DATE CREATED AUTHOR AUTHOR'S ORGANIZ ATION 05/14/2023 [facility] Scheduled Active and Recently Administ ered [...]
Care Teams (unrecognized sec tion and content) Supervisor Ordnance Truck Installation Relationship Specialty Start Date End Date Roque, Aye Thomas, [facility] [place] [address] PCP - General 01/02/12 FOR [...] BE BASED ON THE PRIMARY CLINICAL RECORDS. [employer] provides no warranty or guarantee of the accuracy or completeness of information in this document.
[2023-06-25] MEDS: REMDESIVIR 200 MG in 0.9 % SODIUM CHLORIDE 250 ML 250 MG IV (05:23)
[2023-06-25] MEDS: LEVETIRACETAM 500 MG TABLET PO ×2 (05:24→22:26)
[2023-06-25] MEDS: LEVOTHYROXINE SODIUM 25 MCG TABLET 50 MCG PO (05:24)
[2023-06-25] MEDS: DEXAMETHASONE 4 MG TABLET PO (05:24)
[2023-06-25 06:13] LABS: Lactate Dehydrogenase 165 U/L (81-234)
[2023-06-25] MEDS: FERROUS SULFATE 325 MG TABLET PO (08:30)
[2023-06-25] MEDS: ACETAMINOPHEN 500 MG TABLET 1000 MG PO ×2 (08:30→22:26)
[2023-06-25] MEDS: FLUDROCORTISONE ACETATE 0.1 MG TABLET 0.100000000000000006 MG PO (08:30)
[2023-06-25] MEDS: SERTRALINE HCL 100 MG TABLET PO (08:30)
[2023-06-25] MEDS: DONEPEZIL HCL 10 MG TABLET PO ×2 (08:30→22:25)
--- NOTE | 2023-06-25 12:31 | P.HP_ITS ---
HPI H&P: HPI History of Present Illness Chief complaint: SOB COVID HYPOXIA Narrative: 82 y/o female sent from [facility] with hypoxia and SOB. To ER 06/20 for weakness. Discharged back to [facility] and covid positive 06/21. Developed SOB and increased work of breathing. EMS brought to ER and reports SpO2 in 70s on RA. In ER took off oxygen and SpO2 83% and ABG showed pO2 41.1. Chest x-ray showed pneumonia. Covid postive and WBC 2.3. CTA showed pneumonia but no PE. Admitted for treatment. Started decadron and remdesivir. Remains on supplemental oxygen and had to increase to 6 LPM overnight due to increased work of breathing. Opioid HPI Opioid Management Most Recent Opioid Data: Last Pain Assessment 06/25/23 12:00 Last JUN Pain Assessment 06/25/23 08:30 Last ORT Total Score 2 06/25/23 04:16 Last ORT Risk Category Low Risk 06/25/23 04:16 Review of Systems ROS Constitutional Reports: fatigue; Denies: fever or chills Cardiovascular Denies: chest pain, palpitations or edema Respiratory Reports: shortness of breath and cough; Denies: wheezing Gastrointestinal Denies: abdominal pain, nausea, vomiting or diarrhea Genitourinary Denies: painful urination [facility] Medical History (Updated 06/25/23 @ 10:14 by Sunil Yousif MD) Hypoxia ?R09.02 - Hypoxemia (ICD-10) COVID ?U07.1 - COVID-19 (ICD-10) Abscess ?L02.91 - Cutaneous abscess, unspecified (ICD-10) Contusion of hip ?S70.00XA - Contusion of unspecified hip, initial encounter (ICD-10) Fall ?W19.XXXA - Unspecified fall, initial encounter (ICD-10) Hypothyroidism ?E03.9 - Hypothyroidism, unspecified (ICD-10) Syncope due to orthostatic hypotension ?I95.1 - Orthostatic hypotension (ICD-10) Acute dehydration ?E86.0 - Dehydration (ICD-10) Schizophrenia ?F20.9 - Schizophrenia, unspecified (ICD-10) Depression ?F32.A - Depression, unspecified (ICD-10) Social History (Updated 06/25/23 @ 04:37 by Mirta Porras) Within the past year, how often did you have a drink containing alcohol: never Score interpretation: A score less than 3 is consistent with normal alcohol consumption. Smoking status: Former smoker Non-prescribed substance use: denies use Previous occupational history: retired Highest level of school completed/degree received: high school graduate Are you now , , , , never or living with a partner: don't know In a typical week, how many times do you talk on the telephone with family, friends, or neighbors: twice per week How often do you get together with friends or relatives: twice per week How often do you attend buddhist or pentecostalism services: never Do you belong to any clubs or organizations such as buddhist groups unions, [employer] or athletic groups, or school groups: no Total score: 1 Score interpretation: A score of less than or equal to 1 indicates the most socially isolated. Little interest or pleasure in doing things: not at all Feeling down, depressed, or hopeless: not at all Feel stressed/tense/nervous/anxious/difficulty sleeping: not at all Do you think of yourself as: straight/heterosexual Meds Home Medications and Allergies Home Medications Medication Instructions Recorded Confirmed Type cyanocobalamin (vitamin B-12) 1,000 mcg PO DAILY 09/19/22 06/25/23 History 1,000 mcg capsule donepezil 10 mg tablet 10 mg PO BID 09/19/22 06/25/23 History ferrous sulfate 325 mg (65 mg 325 mg PO DAILY 09/19/22 06/25/23 History iron) tablet hyoscyamine sulfate 0.125 mg 0.125 mg PO Q4H PRN secretions 09/19/22 06/25/23 History tablet (Levsin) ibuprofen 600 mg tablet 400 mg PO Q12H pain 09/19/22 06/25/23 History levetiracetam 500 mg tablet 500 mg PO Q12H 09/19/22 06/25/23 History (Keppra) memantine 5 mg tablet 5 mg PO BID 09/19/22 06/25/23 History quetiapine 25 mg tablet (Seroquel) 25 mg PO QPM 09/19/22 06/25/23 History sertraline 100 mg tablet (Zoloft) 100 mg PO DAILY 09/19/22 06/25/23 History simvastatin 20 mg tablet 20 mg PO QPM 09/19/22 06/25/23 History acetaminophen 325 mg tablet (Aphen) 650 mg PO Q6H PRN fever or pain 06/25/23 06/25/23 History acetaminophen 500 mg tablet 1,000 mg PO BID 06/25/23 06/25/23 History fludrocortisone 0.1 mg tablet 0.1 mg PO DAILY 06/25/23 06/25/23 History levothyroxine 50 mcg tablet 50 mcg PO DAILY 06/25/23 06/25/23 History loperamide 2 mg capsule 2 mg PO Q12H 06/25/23 06/25/23 History ondansetron HCl 4 mg tablet 4 mg PO Q6H PRN nausea and vomiting 06/25/23 06/25/23 History Allergies Allergy/AdvReac Type Severity Reaction Status Date / Time No Known Drug Allergies Allergy Verified 06/25/23 00:57 Exam Constitutional Vital Signs, click to edit/add: Last Vital Signs Temp 98.7 F 06/25/23 07:56 Pulse 82 06/25/23 07:56 Resp 18 06/25/23 08:00 BP 129/66 06/25/23 07:56 Pulse Ox 97 06/25/23 11:58 O2 Del Method Nasal Cannula 06/25/23 09:47 O2 Flow Rate 4 06/25/23 09:47 Documenting provider has reviewed patient's vital signs: yes Common normals: no apparent distress and alert HENMT Common normals: normocephalic Eye Common normals: PERRL and EOMs intact bilaterally Respiratory Common normals: normal respiratory effort and clear to auscultation bilaterally Cardio Common normals: regular rate, regular rhythm, no gallops, no murmurs and no rub GI Common normals: Normal to inspection, nondistended, normoactive bowel sounds present and non-tender Extremity Common normals: no pedal edema Results Labs Labs: Short CBC 06/25/23 Range/Units 01:17 WBC 3.3 L (4.0-11.0) 10^3/uL Hgb 12.9 (12.0-16.0) g/dL Hct 41.4 (36.0-48.0) % Plt Count 177 (150-450) 10^3/uL BMP 06/25/23 01:17 Sodium 141 Potassium 3.5 Chloride 104 Carbon Dioxide 28.6 BUN 18.0 Creatinine 0.95 Glucose 152 H Calcium 9.0 Liver Function 06/25/23 Range/Units 01:17 Total Bilirubin 0.5 (0.2-1.0) mg/dL AST 21 (15-37) U/L ALT 20 (14-59) U/L Alkaline Phosphatase 76 (46-116) U/L Albumin 3.1 L (3.4-5.0) g/dL ABG ABG results: 06/25/23 01:15 ABG pH 7.424 ABG pCO2 37.6 ABG pO2 41.1 L* ABG HCO3 24.6 ABG O2 Saturation 79.8 ABG Base Excess 0.2 Attestation: I have reviewed the pertinent ABG results. Pulse Oximetry Attestation: I have reviewed the pertinent pulse oximetry results. Assessment and Plan Assessment and Plan (1) Pneumonia due to COVID-19 virus: (2) Acute hypoxic respiratory failure: (3) Dementia: (4) Stage 3a chronic kidney disease (CKD): (5) Seizure disorder: Plan Presented with increased WOB and hypoxia related to covid pneumonia. Continue decadron and remdesivir. Use albuterol PRN. Wean oxygen as tolerated and monitor with continuous pulse ox. Resume home medication. Start PT/OT for weakness.
--- NOTE | 2023-06-25 20:15 | RESP.RT ---
DECREASED TO 3L NASAL CANNULA
[2023-06-25] MEDS: QUETIAPINE FUMARATE 25 MG TABLET PO (22:25)
[2023-06-25] MEDS: MEMANTINE HCL 7 MG CAP XR 14 MG PO (22:25)
[2023-06-25] MEDS: ATORVASTATIN CALCIUM 10 MG TABLET PO (22:25)
[2023-06-26] VITALS (23 sets, daily range): BP systolic 94–137; BP diastolic 48–71; PULSE 67–92; RESP 16–22; TEMP 36.4–37.5; O2SAT 84–99
[2023-06-26 05:25] LABS: Hematocrit 33.6 % (36.0-48.0); Hemoglobin 10.5 g/dL (12.0-16.0); Mean Corpuscular HGB Conc 31.3 g/dL (29.9-35.2); Mean Corpuscular Hemoglobin 30.9 pg (26.7-34.0); Mean Corpuscular Volume 98.8 fL (81.0-99.0); Mean Platelet Volume 9.6 fL (9.5-13.5); Platelet Count 164 10^3/uL (150-450); Red Cell Distribution Width 12.6 % (11.0-15.0); White Blood Count 7.8 10^3/uL (4.0-11.0)
[2023-06-26 05:30] LABS: Anion Gap 10.3; Calcium 8.6 mg/dL (8.5-10.1); Carbon Dioxide 28.2 mmol/L (21.0-32.0); Chloride 101 mmol/L (98-107); Estimated GFR (African America >60 (>=60); Estimated GFR (Non-African Ame 58 (>=60); Glucose 86 mg/dL (74-106); Potassium 3.5 mmol/L (3.5-5.1); Sodium 136 mmol/L (136-145)
[2023-06-26] MEDS: LEVOTHYROXINE SODIUM 25 MCG TABLET 50 MCG PO (05:52)
[2023-06-26] MEDS: REMDESIVIR 100 MG in 0.9 % SODIUM CHLORIDE 100 ML 200 MG IV (05:52)
[2023-06-26 05:53] LABS: Band Neutrophils Absolute 3.3 10^3/uL (0.0-0.3); Lymphocytes Absolute Manual 1.48 10^3/uL (1.20-3.80); Segmented Neut Absolute Manual 2.26 10^3/uL (1.4-6.5)
[2023-06-26 05:54] LABS: Metamyelocytes Absolute Manual 0.31
[2023-06-26] MEDS: FERROUS SULFATE 325 MG TABLET PO (08:07)
[2023-06-26] MEDS: DONEPEZIL HCL 10 MG TABLET PO ×2 (08:07→20:42)
[2023-06-26] MEDS: FLUDROCORTISONE ACETATE 0.1 MG TABLET 0.100000000000000006 MG PO (08:07)
[2023-06-26] MEDS: SERTRALINE HCL 100 MG TABLET PO (08:07)
[2023-06-26] MEDS: LEVETIRACETAM 500 MG TABLET PO ×2 (08:07→20:42)
[2023-06-26] MEDS: ACETAMINOPHEN 500 MG TABLET 1000 MG PO ×2 (08:07→20:45)
[2023-06-26] MEDS: DEXAMETHASONE 4 MG TABLET PO (08:07)
--- NOTE | 2023-06-26 10:45 | SWNOTE1 ---
Pt is from [facility]. LEW spoke to nurse at [facility]. Pt is usually independent at [place], sometimes uses a walker. Nurse voiced she is usually up and walking and trying to go see her mom in [place]. SW relayed this to case mangement with doctor. Pt will need SNF. Pt is a precert. Pt is not alert and oriented at this time. SW to call daughter who is listed on face sheet.
--- NOTE | 2023-06-26 10:57 | SWNOTE1 ---
LEW spoke with case management, nursing, and doctor. LEW notified them pt was from [facility]. Pt will likely benefit from SNF for short term rehab stay. Pt is not alert and oriented at this time. SW will need to call daughter who is listed on face sheet. LEW called [facility] [place] too see what pt's baseline is. Pt was independent at home [place], at times used walker. She usually is trying to go see her mom in [place] is what the nurse said. Pt will benefit from SNF. LEW asked if pt has behaviors, she stated no not behaviors, just likes to be on the move. LEW updated case management.
--- NOTE | 2023-06-26 11:31 | PM.PN ---
Progress Note: Subjective Subjective Interval history: Patient unchanged this am. Remains confused and demented but at baseline. Mild SOB but denies cough. Continued weakness and fatigue. Low grade temp 99.5. Continued hypoxia and not able to wean off oxygen, desaturated to 87% on room air. Seen by OT and severe weakness and difficulty with transfers. PT evaluation pending. Normal appetite and no emesis or diarrhea. No chest pain or palpitations. Exam Constitutional Vital Signs, click to edit/add: Last Vital Signs Temp 97.6 F 06/26/23 08:25 Pulse 84 06/26/23 08:25 Resp 18 06/26/23 08:25 BP 125/61 06/26/23 08:25 Pulse Ox 89 L 06/26/23 09:56 O2 Del Method Nasal Cannula 06/26/23 08:25 O2 Flow Rate 1 06/26/23 08:25 Documenting provider has reviewed patient's vital signs: yes Common normals: no apparent distress and alert HENMT Common normals: normocephalic Eye Common normals: PERRL and EOMs intact bilaterally Respiratory Common normals: normal respiratory effort and clear to auscultation bilaterally Cardio Common normals: regular rate, regular rhythm, no gallops, no murmurs and no rub GI Common normals: Normal to inspection, nondistended, normoactive bowel sounds present and non-tender Extremity Common normals: no pedal edema Progress Note: Objective Labs Labs: Short CBC 06/26/23 Range/Units 04:56 WBC 7.8 (4.0-11.0) 10^3/uL Hgb 10.5 L (12.0-16.0) g/dL Hct 33.6 L (36.0-48.0) % Plt Count 164 (150-450) 10^3/uL BMP 06/26/23 04:56 Sodium 136 Potassium 3.5 Chloride 101 Carbon Dioxide 28.2 BUN 27.0 H Creatinine 0.93 Glucose 86 Calcium 8.6 Progress Note: A&P Assessment and Plan (1) Pneumonia due to COVID-19 virus: (2) Acute hypoxic respiratory failure: (3) Dementia: (4) Stage 3a chronic kidney disease (CKD): (5) Seizure disorder: Plan Patient slow to improve and continue remdesivir and decadron for covid pneumonia. Use albuterol PRN. Wean oxygen as tolerated. Severe weakness due to infection and will have PT evaluation. May need SNF upon discharge due to weakness for strengthening. Monitor labs and vitals.
--- NOTE | 2023-06-26 11:36 | SWNOTE1 ---
LEW called and spoke with pt's daughter, Margaret, in regards to discharge plans. SW let daughter know pt would benefit from SNF for a short term rehab stay to get stronger. Pt's daughter in agreement. SW reviewed list from medicare.gov with daughter. She would like [facility] as first choice and [facility] as second. SW let daughter know that [facility] will have to cost out, sometimes they can and sometimes they can't take anthem. She voiced understandind. LEW reviewed IMM form with daughter, she voiced understanding. She did state she does not want pt to go be discharged too early and wants the pneumonia treated, LEW recommend she calls the nurse and discuss the pneumonia and treatment with nursing. No other concerns or questions in regards to IMM. LEW signed, copy placed on chart, original placed in pt's room. Referral sent to [facility]. Referral included face sheet, ED note, H&P, provider notes, case management report, nursing notes, diagnostic imaging, med list, and PT/OT notes.
--- NOTE | 2023-06-26 12:05 | CM.NOTE ---
Rounds made with Dr. Yousif, pt very weak this AM. PT and OT will evaluate pt for possible skilled rehab at discharge.
--- NOTE | 2023-06-26 14:27 | SWNOTE1 ---
LEW reached out to Marge and Royer at [facility] in regards to precert. Marge emailed LEW back and they have started precert. LEW updated doctor, nursing, and pt's daughter.
--- NOTE | 2023-06-26 15:28 | SWNOTE1 ---
LEW received message from Marge at [facility] and they have received approval. LEW checked with [facility] to see if they are able to take today if doctor discharges, waiting to hear back.
--- NOTE | 2023-06-26 15:34 | SWNOTE1 ---
[facility] will be ready for her tomorrow and pt is medically needing one more day as well at hospital. Plan for discharge tomorrow.
[2023-06-26] MEDS: ATORVASTATIN CALCIUM 10 MG TABLET PO (20:41)
[2023-06-26] MEDS: MEMANTINE HCL 7 MG CAP XR 14 MG PO (20:42)
[2023-06-26] MEDS: QUETIAPINE FUMARATE 25 MG TABLET PO (20:42)
[2023-06-27] VITALS (14 sets, daily range): BP systolic 120–130; BP diastolic 66–76; PULSE 59–74; RESP 16–18; TEMP 37–37.1; O2SAT 87–96
[2023-06-27 07:18] LABS: Anion Gap 9.8; Carbon Dioxide 28.7 mmol/L (21.0-32.0); Chloride 105 mmol/L (98-107); Glucose 92 mg/dL (74-106); Potassium 3.5 mmol/L (3.5-5.1); Sodium 140 mmol/L (136-145)
[2023-06-27 07:19] LABS: BUN Creatinine Ratio 36.4; Calcium 8.7 mg/dL (8.5-10.1); Estimated GFR (African America >60 (>=60); Estimated GFR (Non-African Ame >60 (>=60)
[2023-06-27 08:11] LABS: White Blood Count 10.2 10^3/uL (4.0-11.0)
[2023-06-27 08:12] LABS: Hematocrit 35.5 % (36.0-48.0); Hemoglobin 11.4 g/dL (12.0-16.0); Mean Corpuscular HGB Conc 32.1 g/dL (29.9-35.2); Mean Corpuscular Hemoglobin 30.9 pg (26.7-34.0); Mean Corpuscular Volume 96.2 fL (81.0-99.0); Mean Platelet Volume 9.8 fL (9.5-13.5); Platelet Count 189 10^3/uL (150-450); Red Blood Count 3.69 10^6/uL (4.20-5.40); Red Cell Distribution Width 12.6 % (11.0-15.0)
[2023-06-27 08:13] LABS: Anisocytosis 3+; Atypical Lymphocytes Abs Man 1.12; Band Neutrophils Absolute 2.3 10^3/uL (0.0-0.3); Lymphocytes Absolute Manual 0.91 10^3/uL (1.20-3.80); Monocytes Absolute Manual 0.51 10^3/uL (0.30-0.80); Poikilocytosis 3+
[2023-06-27] MEDS: SERTRALINE HCL 100 MG TABLET PO (08:49)
[2023-06-27] MEDS: LEVETIRACETAM 500 MG TABLET PO (08:49)
[2023-06-27] MEDS: ACETAMINOPHEN 500 MG TABLET 1000 MG PO (08:49)
[2023-06-27] MEDS: FERROUS SULFATE 325 MG TABLET PO (08:49)
[2023-06-27] MEDS: DONEPEZIL HCL 10 MG TABLET PO (08:49)
[2023-06-27] MEDS: DEXAMETHASONE 4 MG TABLET PO (08:49)
[2023-06-27] MEDS: FLUDROCORTISONE ACETATE 0.1 MG TABLET 0.100000000000000006 MG PO (08:49)
--- NOTE | 2023-06-27 11:30 | CM.NOTE ---
Rounds made with Dr. Yousif, pt will discharge to [facility] today for skilled therapy.
--- NOTE | 2023-06-27 11:39 | PM.DS1 ---
DS: Providers Provider Date of admission: 06/25/23 04:03 Primary care physician: AYE RODRIGUEZ Consults: 06/25/23 07:31 Occupational Therapy Eval and Treat Routine Reason for consultation: Weakness Physical Therapy Eval and Treat Routine Reason for consultation: Weakness DS: Diagnosis Discharge Diagnosis (1) Pneumonia due to COVID-19 virus: (2) Acute hypoxic respiratory failure: (3) Dementia: (4) Stage 3a chronic kidney disease (CKD): (5) Seizure disorder: DS: Summary Hospital Course Hospital Course: Reason for admission: See H&P for details. 82 y/o female sent from [facility] with hypoxia and SOB. To ER 06/20 for weakness. Discharged back to [facility] and covid positive 06/21. Developed SOB and increased work of breathing. EMS brought to ER and reports SpO2 in 70s on RA. In ER took off oxygen and SpO2 83% and ABG showed pO2 41.1. Chest x-ray showed pneumonia. Covid postive and WBC 2.3. CTA showed pneumonia but no PE. Admitted for treatment. Hospital course: Started decadron and remdesivir. Resumed home medication. Remained on supplemental oxygen and had to increase to 6 LPM overnight due to increased work of breathing. Gradually improved and able to wean down oxygen. Started PT/OT for weakness. Afebrile and normal WBC. Down to 2 LPM but not able to wean to room air due to desaturation. Severe weakness noted by therapy and recommended SNF. Information sent to insurance and received approval. Transferred to SNF in stable condition. Will take decadron x 4 additional days. Resume home medication as directed. Time Spent with Patient Time attestation: Total time spent providing and/or coordinating discharge services: Exam Constitutional Vital Signs, click to edit/add: Last Vital Signs Temp 98.6 F 06/27/23 08:29 Pulse 70 06/27/23 08:29 Resp 18 06/27/23 08:29 BP 124/71 06/27/23 08:29 Pulse Ox 95 06/27/23 11:32 O2 Del Method Nasal Cannula 06/27/23 11:32 O2 Flow Rate 2 06/27/23 11:32 Documenting provider has reviewed patient's vital signs: yes Common normals: no apparent distress and alert HENMT Common normals: normocephalic Eye Common normals: PERRL and EOMs intact bilaterally Respiratory Common normals: normal respiratory effort and clear to auscultation bilaterally Cardio Common normals: regular rate, regular rhythm, no gallops, no murmurs and no rub Extremity Common normals: no pedal edema DS: Data Data Completed and Pending Labs on day of discharge: Labs from last 24 hours 06/27/23 05:05 WBC 10.2 RBC 3.69 L Hgb 11.4 L Hct 35.5 L MCV 96.2 MCH 30.9 MCHC 32.1 RDW 12.6 Plt Count 189 MPV 9.8 Seg Neuts % (Manual) 52.0 Band Neutrophils % 23.0 H Lymphocytes % (Manual) 9.0 L Atypical Lymphs % (Man) 11.0 Monocytes % (Manual) 5.0 Eosinophils % (Manual) 0.0 L Basophils % (Manual) 0.0 L Neutrophils # (Manual) 5.30 Band Neutrophils # 2.3 H Lymphocytes # (Manual) 0.91 L Abs Atypical Lymphs Man 1.12 Monocytes # (Manual) 0.51 Eosinophils # (Manual) 0.00 Basophils # (Manual) 0.00 Poikilocytosis 3+ Anisocytosis 3+ Sodium 140 Potassium 3.5 Chloride 105 Carbon Dioxide 28.7 Anion Gap 9.8 BUN 24.0 H Creatinine 0.66 Est GFR ( Amer) >60 Est GFR (Non-Af Amer) >60 BUN/Creatinine Ratio 36.4 Glucose 92 Calcium 8.7 Discharge Plan Discharge Disposition: er SNF Condition: Fair Discharge Medications: New dexamethasone 4 mg Tablet 4 mg PO QD 4 Days Qty: 4 0RF Continued donepezil 10 mg tablet 10 mg PO BID ferrous sulfate 325 mg (65 mg iron) tablet 325 mg PO DAILY ibuprofen 600 mg tablet 400 mg PO Q12H levetiracetam [Keppra] 500 mg tablet 500 mg PO Q12H memantine 5 mg tablet 5 mg PO BID quetiapine [Seroquel] 25 mg tablet 25 mg PO QPM Rx Instructions: IN the evening sertraline [Zoloft] 100 mg tablet 100 mg PO DAILY simvastatin 20 mg tablet 20 mg PO QPM cyanocobalamin (vitamin B-12) 1,000 mcg capsule 1,000 mcg PO DAILY hyoscyamine sulfate [Levsin] 0.125 mg tablet 0.125 mg PO Q4H PRN (Reason: secretions) fludrocortisone 0.1 mg tablet 0.1 mg PO DAILY levothyroxine 50 mcg tablet 50 mcg PO DAILY acetaminophen [Aphen] 325 mg tablet 650 mg PO Q6H PRN (Reason: fever or pain) loperamide 2 mg capsule 2 mg PO Q12H Rx Instructions: 2 mg 1st dose then 1 tablet BID as needed no more then 4tablets daily ondansetron HCl 4 mg tablet 4 mg PO Q6H PRN (Reason: nausea and vomiting) Discontinued acetaminophen 500 mg tablet 1,000 mg PO BID Print Language: Gibraltarian Forms: Portal Instructions
--- NOTE | 2023-06-27 12:01 | PC.NURSE ---
called report to [facility] at this time
--- NOTE | 2023-06-27 12:03 | PC.NURSE ---
notified emergency contact of pending [facility]
--- NOTE | 2023-06-27 12:14 | SWNOTE1 ---
Pt is ready for discharge today. LEW spoke to nursing and pt can go by wheelchair. LEW sent dc med rec, dc summary, labs, and OT notes to [facility]. LEW set up trips for 4-4:30. LEW completed HENS. LEW let nursing, pt's daughter, and the [facility] know of dc time. Pt is going to [facility] skilled.
--- NOTE | 2023-06-27 13:24 | PT.DAILY ---
Physical Therapy Daily Note PT Daily Note/Assess Start: 06/26/23 11:28 Freq: Status: Active Protocol: Document 06/27/23 13:20 [id number] (Rec: 06/27/23 13:24 BHAVYACORINE [id number]) Physical Therapy Daily Note/Assessment Time In/Time Out Time In 12:50 Time Out 13:00 Pain In Pain N/A Pain Out Pain N/A Subjective Subjective Consulted with instructor of nursing prior to entering room. She reports pt was in chair and helped herself up and to the couch, nursing then assisted her to the bed. Pt was just washed up and clothes were changed for discharge. Pt is supine upon arrival. Agrees to PT but does wish to stay in bed. Pt is pleasantly confused . Therapeutic Exercise Time Therapeutic Exercise Minutes (minutes) 9 Therapeutic Exercise Units 1 Therapeutic Exercise Treatment Therapeutic Exercise Treatment Pt performs bilat AP, GS, heel slides, abd slides, SLR, SAQ, LTR in hooklying 10x ea. Pt needs constant cuing to stay on task and for proper form - needs increased time to complete these ex. Pt is asked again about getting to BS chair or to sit EOB. Pt kindly declines as she is comfortable. Remains supine with call light in reach and bed alarm set. Total Physical Therapy Time Total Therapy Minutes 9 Total Physical Therapy Units 1 Summary Daily Note Summary Denies pain with activity but mild fatigue upon completion. Increased time needed to complete supine ex due to mental status/dementia and constant cuing.
== END 2023-06-27 16:44 | DRG 177 ==
LOC: ER 03:41 → MS 04:04
PROVIDERS: Registered Nurse; Admitting Provider Family Medicine; Emergency Provider Emergency Medicine; PCP Family Medicine; Visit Provider Family Medicine
DX: U07.1 COVID-19 (principal); J12.82 Pneumonia due to coronavirus disease 2019; J96.01 Acute respiratory failure with hypoxia; E03.9 Hypothyroidism, unspecified; F20.9 Schizophrenia, unspecified; N18.31 Chronic kidney disease, stage 3a; F03.90 Unspecified dementia, unspecified severity, without behavioral disturbance, psychotic disturbance, mood disturbance, and anxiety; F32.A Depression, unspecified; R53.1 Weakness; G40.909 Epilepsy, unspecified, not intractable, without status epilepticus; Z79.890 Hormone replacement therapy; Z79.899 Other long term (current) drug therapy; Z87.891 Personal history of nicotine dependence
CPT/HCPCS: 36415; 36600; 71045; 71275; 80048; 80053; 82728; 82805; 83615; 83880; 84484; 85007; 85027; 85610; 85730; 87804; 87811; 93005; 94640; 94761; 96365; 96366; 96376; 97110; 97161; 97165; 97535; 99285; J0248; Q9967

== ENCOUNTER 2023-07-11 14:59 | Inpatient (IN) | payer MEDICARE, SELFPAY ==
[2023-07-11] VITALS (29 sets, daily range): BP systolic 97–161; BP diastolic 54–94; PULSE 65–88; TEMP 36.8–37; O2SAT 78–100; BMI 26.1
--- NOTE | 2023-07-11 15:06 | XR_ITS ---
[address] [address] Patient Name: JARROD CORTEZ MRN: [id number] date: 1940 Sex: F Assigned Patient Location: ER Current Patient Location: ED.MAIN Accession/Order Number: [id number] Exam Date: 07/11/2023 15:11 Report Date: 07/11/2023 15:30 At the request of: KEVIN STEINER Procedure: XR chest 1V EXAMINATION: XR chest 1V HISTORY: weak , short of breath COMPARISON: XR chest 06/25/2023 FINDINGS: LUNGS: Unexpanded lungs with mild patchy opacities scattered throughout the lungs. Obscuration of the lateral right costophrenic angle. VASCULATURE: No increased pulmonary vasculature. PLEURA: No pneumothorax. Cannot exclude right pleural effusion. CARDIAC: No cardiomegaly or cardiac silhouette abnormality. MEDIASTINUM: No visible mass or adenopathy. BONES: No fracture or visible bone lesion. OTHER: Negative. XR/XR chest 1V IMPRESSION: 1. Low lung volume examination with moderate amount of diffuse bilateral infiltrates; or less likely atelectasis. 2. Possible small right pleural effusion. Electronically authenticated by: ABE CARR Date: 07/11/2023 15:30
--- NOTE | 2023-07-11 15:06 | ECG_ITS ---
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
[2023-07-11 15:51] LABS: Basophils Percent Auto 0.4 % (0.2-2.0); Eosinophils Absolute Auto 0.1 10^3/uL (0.0-0.7); Eosinophils Percent Auto 1.4 % (0.9-7.0); Hematocrit 31.7 % (36.0-48.0); Hemoglobin 10.2 g/dL (12.0-16.0); Immature Granulocytes Abs Auto 0.06 10^3/uL (0.00-0.03); Immature Granulocytes Pct Auto 0.6 % (0.0-0.5); Lymphocytes Absolute Auto 1.9 10^3/uL (1.2-3.8); Lymphocytes Percent Auto 18.7 % (20.5-60.0); Mean Corpuscular HGB Conc 32.2 g/dL (29.9-35.2); Mean Corpuscular Hemoglobin 30.7 pg (26.7-34.0); Mean Corpuscular Volume 95.5 fL (81.0-99.0); Mean Platelet Volume 9.1 fL (9.5-13.5); Monocytes Absolute Auto 0.6 10^3/uL (0.3-0.8); Monocytes Percent Auto 5.5 % (1.7-12.0); Neutrophils Absolute Auto 7.3 10^3/uL (1.4-6.5); Neutrophils Percent Auto 73.4 % (43.0-75.0); Platelet Count 451 10^3/uL (150-450); Red Blood Count 3.32 10^6/uL (4.20-5.40); Red Cell Distribution Width 12.8 % (11.0-15.0)
[2023-07-11 15:52] LABS: Bilirubin Urine SMALL (NEGATIVE); Blood Urine TRACE-I (NEGATIVE); Clarity Urine CLEAR (CLEAR); Color Urine YELLOW (YELLOW); Glucose Urine UA NEGATIVE (NEGATIVE); Ketones Urine >=80 mg/dL (NEGATIVE); Leukocyte Esterase Urine SMALL (NEGATIVE); Nitrite Urine POSITIVE (NEGATIVE); Protein Urine 30 mg/dL (NEG/TRACE); Specific Gravity Urine 1.025 (1.005-1.025)
[2023-07-11] MEDS: 0.9 % SODIUM CHLORIDE 500 ML IV (15:52)
[2023-07-11 16:01] LABS: Anion Gap 10.2; BUN Creatinine Ratio 20.6; Calcium 7.9 mg/dL (8.5-10.1); Carbon Dioxide 30.4 mmol/L (21.0-32.0); Chloride 104 mmol/L (98-107); Estimated GFR (African America >60 (>=60); Estimated GFR (Non-African Ame >60 (>=60); Glucose 100 mg/dL (74-106); Potassium 3.6 mmol/L (3.5-5.1); Sodium 141 mmol/L (136-145); Troponin I High Sensitivity 19.7 pg/mL (4.0-51.3)
[2023-07-11 16:03] LABS: Bacteria Urine LARGE #/HPF (NONE SEEN); Cast Seen? NONE SEEN #/LPF (NONE SEEN); Crystals Seen? None Seen #/HPF (None Seen); Mucus Urine NONE SEEN (NONE SEEN); RBC Urine 0-2 #/HPF (0-2); Squamous Epithelial Cell Urine RARE #/LPF (NONE/RARE)
--- NOTE | 2023-07-11 16:35 | ED_ITS ---
HPI HPI - General Adult General Chief complaint: Shortness of Breath/Dyspnea Stated complaint: Shortness of Breath Time Seen by Provider: 07/11/23 15:02 Source: patient Mode of arrival: ambulance Limitations: altered mental status Limitations comment: patient at baseline of A&Ox1 History of Present Illness HPI narrative: 82-year-old female presents from [facility] for difficulty breathing. She is a poor historian. It is not clear when her symptoms started, she has dementia. She does not seem to be complaining of any pain and has not had a known fever. Related Data Home Medications ?Medication ?Instructions ?Recorded ?Confirmed cyanocobalamin (vitamin B-12) 1,000 mcg PO DAILY 09/19/22 07/11/23 1,000 mcg capsule donepezil 10 mg tablet 10 mg PO BID 09/19/22 07/11/23 ferrous sulfate 325 mg (65 mg 325 mg PO DAILY 09/19/22 07/11/23 iron) tablet hyoscyamine sulfate 0.125 mg 0.125 mg PO Q4H PRN secretions 09/19/22 07/11/23 tablet (Levsin) ibuprofen 600 mg tablet 400 mg PO Q12H pain 09/19/22 07/11/23 levetiracetam 500 mg tablet 500 mg PO Q12H 09/19/22 07/11/23 (Keppra) memantine 5 mg tablet 5 mg PO BID 09/19/22 07/11/23 quetiapine 25 mg tablet (Seroquel) 25 mg PO QPM 09/19/22 07/11/23 sertraline 100 mg tablet (Zoloft) 100 mg PO DAILY 09/19/22 07/11/23 simvastatin 20 mg tablet 20 mg PO QPM 09/19/22 07/11/23 acetaminophen 325 mg tablet (Aphen) 650 mg PO Q6H PRN fever or pain 06/25/23 07/11/23 fludrocortisone 0.1 mg tablet 0.1 mg PO DAILY 06/25/23 07/11/23 levothyroxine 50 mcg tablet 50 mcg PO DAILY 06/25/23 07/11/23 loperamide 2 mg capsule 2 mg PO Q12H 06/25/23 07/11/23 ondansetron HCl 4 mg tablet 4 mg PO Q6H PRN nausea and vomiting 06/25/23 07/11/23 albuterol sulfate 2.5 mg/0.5 mL 2.5 mg inhalation Q4H PRN 07/11/23 07/11/23 solution for nebulization shortness of breath or wheezing ipratropium 0.5 mg-albuterol 3 mg 3 ml inhalation BID 07/11/23 07/11/23 (2.5 mg base)/3 mL nebulization soln lorazepam 0.5 mg tablet (Ativan) 0.5 mg PO Q12H PRN agitation 07/11/23 07/11/23 melatonin 5 mg capsule mg 07/11/23 Allergies Allergy/AdvReac Type Severity Reaction Status Date / Time No Known Drug Allergies Allergy Verified 07/11/23 16:25 Opioid HPI Opioid Management Most Recent Opioid Data: Last Pain Scale 0 06/26/23 11:28 Last Pain Intensity 0 06/26/23 11:28 Last ORT Total Score 2 06/25/23 04:16 Last ORT Risk Category Low Risk 06/25/23 04:16 Review of Systems ROS Narrative Not obtainable, dementia [facility] Medical History (Updated 07/11/23 @ 17:40 by Ryan Mattosn MD) Stage 3a chronic kidney disease (CKD) ?N18.31 - Chronic kidney disease, stage 3a (ICD-10) Seizure disorder ?G40.909 - Epilepsy, unspecified, not intractable, without status epilepticus (ICD-10) Dementia ?F03.90 - Unspecified dementia, unspecified severity, without behavioral disturbance, psychotic disturbance, mood disturbance, and anxiety (ICD-10) Hypoxia ?R09.02 - Hypoxemia (ICD-10) COVID ?U07.1 - COVID-19 (ICD-10) Abscess ?L02.91 - Cutaneous abscess, unspecified (ICD-10) Contusion of hip ?S70.00XA - Contusion of unspecified hip, initial encounter (ICD-10) Fall ?W19.XXXA - Unspecified fall, initial encounter (ICD-10) Hypothyroidism ?E03.9 - Hypothyroidism, unspecified (ICD-10) Syncope due to orthostatic hypotension ?I95.1 - Orthostatic hypotension (ICD-10) Acute dehydration ?E86.0 - Dehydration (ICD-10) Schizophrenia ?F20.9 - Schizophrenia, unspecified (ICD-10) Depression ?F32.A - Depression, unspecified (ICD-10) Social History (Updated 06/25/23 @ 04:37 by Mirta Porras) Within the past year, how often did you have a drink containing alcohol: never Score interpretation: A score less than 3 is consistent with normal alcohol consumption. Smoking status: Former smoker Non-prescribed substance use: denies use Previous occupational history: retired Highest level of school completed/degree received: high school graduate Are you now , , , , never or living with a partner: don't know In a typical week, how many times do you talk on the telephone with family, friends, or neighbors: twice per week How often do you get together with friends or relatives: twice per week How often do you attend evangelical or oriental orthodox services: never Do you belong to any clubs or organizations such as evangelical groups unions, fraternal or athletic groups, or school groups: no Total score: 1 Score interpretation: A score of less than or equal to 1 indicates the most socially isolated. Little interest or pleasure in doing things: not at all Feeling down, depressed, or hopeless: not at all Feel stressed/tense/nervous/anxious/difficulty sleeping: not at all Do you think of yourself as: straight/heterosexual Exam Narrative Exam Narrative: Nurses note and vital signs reviewed and patient is not hypoxic. General: The patient appears generally weak and is in no apparent respiratory distress Skin: Warm, dry, no pallor noted. There is no rash noted. Head: Normocephalic, atraumatic Eye: Normal conjunctiva, no drainage Ears, Nose, Mouth, and Throat: oral mucosa is moist. Nares patent. Cardiovascular: Regular Rate and Rhythm Respiratory: Patient is in no distress, no accessory muscle use, lungs are clear to auscultation, no wheezing, rales or rhonchi Back: non-tender GI: Soft and nontender Musculoskeletal: The patient has no evidence of calf tenderness, no pitting edema, symmetrical pulses noted bilaterally Neurological: Awake. She is able to tell me her name. Psychiatric: Cooperative Constitutional Vital Signs, click to edit/add: Last Vital Signs Temp 98.6 F 07/11/23 15:01 Pulse 70 07/11/23 15:01 Resp 75 H 07/11/23 15:01 BP 114/72 07/11/23 15:01 Pulse Ox 95 07/11/23 15:36 O2 Del Method Nasal Cannula 07/11/23 15:36 O2 Flow Rate 3 07/11/23 15:36 Course Vital Signs Vital signs: Vital Signs Temperature 98.6 F 07/11/23 15:01 Pulse Rate 70 07/11/23 15:01 Respiratory Rate 75 H 07/11/23 15:01 Blood Pressure 114/72 07/11/23 15:01 Pulse Oximetry 93 L 07/11/23 15:01 Oxygen Delivery Method Nasal Cannula 07/11/23 15:01 Oxygen Delivery Flow Rate 4 07/11/23 15:01 Temperature 98.6 F 07/11/23 15:01 Pulse Rate 70 07/11/23 15:01 Respiratory Rate 75 H 07/11/23 15:01 Blood Pressure 114/72 07/11/23 15:01 Pulse Oximetry 95 07/11/23 15:36 Oxygen Delivery Method Nasal Cannula 07/11/23 15:36 Oxygen Delivery Flow Rate 3 07/11/23 15:36 Medical Decision Making MDM Narrative Medical decision making narrative: Pneumonia suggested on the chest x-ray per radiologist. The patient has had cultures done and was given IV antibiotics and is being admitted. She was given IV fluids and is now more awake and alert. Differential Diagnosis Differential Diagnosis: Pneumonia, UTI, dementia Lab Data Lab results reviewed: Yes I reviewed the patient's lab results Labs: Lab Results 07/11/23 07/11/23 07/11/23 Range/Units 15:24 15:28 16:35 WBC 10.0 (4.0-11.0) 10^3/uL RBC 3.32 L (4.20-5.40) 10^6/uL Hgb 10.2 L (12.0-16.0) g/dL Hct 31.7 L (36.0-48.0) % MCV 95.5 (81.0-99.0) fL MCH 30.7 (26.7-34.0) pg MCHC 32.2 (29.9-35.2) g/dL RDW 12.8 (11.0-15.0) % Plt Count 451 H (150-450) 10^3/uL MPV 9.1 L (9.5-13.5) fL Neut % (Auto) 73.4 (43.0-75.0) % Lymph % (Auto) 18.7 L (20.5-60.0) % Johnson % (Auto) 5.5 (1.7-12.0) % Eos % (Auto) 1.4 (0.9-7.0) % Baso % (Auto) 0.4 (0.2-2.0) % Neut # (Auto) 7.3 H (1.4-6.5) 10^3/uL Lymph # (Auto) 1.9 (1.2-3.8) 10^3/uL Johnson # (Auto) 0.6 (0.3-0.8) 10^3/uL Eos # (Auto) 0.1 (0.0-0.7) 10^3/uL Baso # (Auto) 0.0 (0.0-0.1) 10^3/uL Abs Immat Gran (auto) 0.06 H (0.00-0.03) 10^3/uL Imm/Tot Granulo (auto) 0.6 H (0.0-0.5) % Sodium 141 (136-145) mmol/L Potassium 3.6 (3.5-5.1) mmol/L Chloride 104 (98-107) mmol/L Carbon Dioxide 30.4 (21.0-32.0) mmol/L Anion Gap 10.2 BUN 13.0 (7.0-18.0) mg/dL Creatinine 0.63 (0.55-1.02) mg/dL Est GFR ( Amer) >60 (>=60) Est GFR (Non-Af Amer) >60 (>=60) BUN/Creatinine Ratio 20.6 Glucose 100 (74-106) mg/dL Lactate 0.9 (0.4-2.0) mmol/L Calcium 7.9 L (8.5-10.1) mg/dL Troponin I High Sens 19.7 (4.0-51.3) pg/mL Procalcitonin 0.05 (0.00-0.50) ng/mL Urine Color Yellow (YELLOW) Urine Clarity Clear (CLEAR) Urine pH 6.0 (5.0-9.0) Ur Specific Clements 1.025 (1.005-1.025) Urine Protein 30 A (NEG/TRACE) mg/dL Urine Glucose (UA) Negative (NEGATIVE) mg/dL Urine Ketones >=80 A (NEGATIVE) mg/dL Urine Occult Blood Trace-i (NEGATIVE) Urine Nitrite Positive A (NEGATIVE) Urine Bilirubin Small A (NEGATIVE) Urine Urobilinogen 2.0 A (0.2-1.0) EU/dL Ur Leukocyte Esterase Small A (NEGATIVE) Urine RBC 0-2 (0-2) #/HPF Urine WBC 5-10 A (NONE SEEN) #/HPF Ur Squamous Epith Cells Rare (NONE/RARE) #/LPF Urine Crystals None seen (None Seen) #/HPF Urine Bacteria Large A (NONE SEEN) #/HPF Urine Casts None seen (NONE SEEN) #/LPF Urine Mucus None seen (NONE SEEN) Imaging Data Chest x-ray: Radiologist's impression: ITS Impressions Chest X-Ray 07/11/23 15:06 IMPRESSION: 1. Low lung volume examination with moderate amount of diffuse bilateral infiltrates; or less likely atelectasis. 2. Possible small right pleural effusion. Electronically authenticated by: ABE CARR Date: 07/11/2023 15:30 Discharge Plan Discharge Chief Complaint: Shortness of Breath/Dyspnea Clinical Impression: Pneumonia Patient Disposition: Admitted as Observation Time of Disposition Decision: 17:40 Condition: Good
[2023-07-11] MEDS: CEFTRIAXONE 1,000 MG in 0.9 % SODIUM CHLORIDE 50 ML 100 MG IV (16:55)
[2023-07-11 17:04] LABS: Lactate/Lactic Acid 0.9 mmol/L (0.4-2.0)
[2023-07-11 17:32] LABS: PROCALCITONIN 0.05 ng/mL (0.00-0.50)
[2023-07-11] MEDS: AZITHROMYCIN 500 MG in 0.9 % SODIUM CHLORIDE 250 ML 250 MG IV (17:33)
[2023-07-11 17:46] LABS: Adenovirus NOT DETECTED (NOT DETECTE); Bordetella parapertussis NOT DETECTED (NOT DETECTE); Coronavirus 229E NOT DETECTED (NOT DETECTE); Coronavirus HKU1 NOT DETECTED (NOT DETECTE); Coronavirus NL63 NOT DETECTED (NOT DETECTE); Coronavirus OC43 NOT DETECTED (NOT DETECTE); Human Metapneumovirus NOT DETECTED (NOT DETECTE); Human Rhinovirus/Enterovirus NOT DETECTED (NOT DETECTE); Influenza B NOT DETECTED (NOT DETECTE); Mycoplasma pneumoniae NOT DETECTED (NOT DETECTE); Parainfluenza Virus 1 NOT DETECTED (NOT DETECTE); Parainfluenza Virus 2 NOT DETECTED (NOT DETECTE); Parainfluenza Virus 3 NOT DETECTED (NOT DETECTE); Parainfluenza Virus 4 NOT DETECTED (NOT DETECTE); Respiratory Syncytial Virus NOT DETECTED (NOT DETECTE); SARS-CoV-2 NOT DETECTED (NOT DETECTE)
--- OUTSIDE RECORDS SUMMARY | 2023-07-11 18:37 | XMS_ITS | CCD ---
Author Organization [facility] Care Team Providers Care Watch Mechanic Name Role Phone Aye Nevarez Primary Care Provider DARIEN FERRARA Admitting Unavailable NANCY TRUJILLO Referring Unavailable AYE NEVAREZ Primary Care Unavailable HANSEL VERDUGO Consulting Unavailable DARLYN GARCIA Attending Unavailable TONY PARRISH Consulting Unavailable Aye Nevarez DO Primary Care Provider Aye Nevarez DO Primary Care Provider Aye Nevarez DO Primary Care Provider AYE NEVAREZ Referring Unavailable AYE NEVAREZ Primary Care Unavailable AYE NEVAREZ Primary Care Unavailable CASANDRA CERDA Admitting Unavailable CASANDRA CERDA Attending Unavailable AYE NEVAREZ Referring Unavailable AYE NEVAREZ Primary Care Unavailable WINNIE ., ANN HALE Consulting Unavailabl e PAY ., DR FOY Attending Unavailable ROQUE, DR GRIFFITHS Admitting Unavailable ABE BOSCH Consulting Unavailable CLARE NUNN Consulting Unavailable KEVIN STEINER Admitting Unavailable KEVIN STEINER Attending Unavailable WINNIE ., ANN HALE Consulting Unavailabl e HAY ., DR COLINDRES Consulting Unavailable POLICDAVIN BURNS Consulting Unavailable AYE NEVAREZ Referring Unavailable AYE [...] Substituted for Omeprazole (PRILOSEC). 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; Translations: [OTH CUSTODIAL CURRENT DRUG THERAPY] Onset: 07-20-2022 Episodic Other [...] involving the circulatory and respiratory systems] Onset: 08-04-2020 Episodic Other screening for suspected conditions (not mental disorders or infectious disease) (4 sources) Raised TSH level; Translations: [Other specified abnormal findings of blood chemistry] Onset: 08-04-2020 Episodic Residual codes; unclassified (7 sources) Altered mental status; Translations: [Altered mental status, unspecified] Onset: 08-03-2020 Episodic Results Test Name Value Interpretation Reference Range Facility URINALYSISon 05-09-2023 Bilirubin Ql (U) Negative Normal NEG [facility] Comment on above: Performed By: #### U A #### [facility] ([id number]) [address] [place] [address] [place] [address] BLOOD/HGB Negative Normal NEG [facility] Comment on above: Performed By: #### U A #### [facility] ([id number]) [address] [place] [address] [place] [address] Color (U) YELLOW Normal YELLOW [facility] Comment on above: Performed By: #### U A #### [facility] ([id number]) [address] [place] [address] [place] [address] Glucose Ql (U) Negative Normal NEG [facility] Comment on above: Performed By: #### U A #### [facility] ([id number]) [address] [place] [address] [place] [address] Ketones Ql (U) Negative Normal NEG [facility] Comment on above: Performed By: #### U A #### [facility] ([id number]) [address] [place] [address] [place] [address] Leukocyte esterase Test strip Ql (U) Negative Normal NEG [facility] Comment on above: Performed By: #### U A #### [facility] ([id number]) [address] [place] [address] [place] [address] Nitrite Ql (U) Negative Normal NEG [facility] Comment on above: Performed By: #### U A #### [facility] ([id number]) [address] [place] [address] [place] [address] pH (U) 6.5 [pH] Normal 5.0-8.5 [facility] Comment on above: Performed By: #### U A #### [facility] ([id number]) [address] [place] [address] Protein Ql (U) Negative Normal NEG [facility] Comment on above: Performed By: #### U A #### [facility] ([id number]) [address] [place] [address] Specific gravity (U) [Rel density] 1.010 Normal 1.003-1.035 [facility] Comment on above: Performed By: #### U A #### [facility] ([id number]) [address] [place] [address] TURBIDITY CLEAR Normal CLEAR [facility] Comment on above: Performed By: #### U A #### [facility] ([id number]) [address] [place] [address] Urinalysis dipstick W Reflex Microscopic panel (U) URINE RECEIVED WITHOUT PRESERVATIVE-DELAYS IN TRANSPORT MAY AFFECT RESULTS.INTERPRET WITH CAUTION AND CLINICAL CORRELATION IS RECOMMENDED. Normal [facility] Comment on above: Performed By: #### U A #### [facility] ([id number]) [address] [place] [address] Urobilinogen Qn (U) 0.2 {Kannan'U}/dL Normal <1.1 [facility] Comment on above: Performed By: #### U A #### [facility] ([id number]) [address] [place] [address] URINE CULTUREon 05-09-2023 Bacteria identified Cx Nom [...] TOBRAMYCIN S <=1 F TRIMETH/SULFAMETHOXAZOL E S <=/19 F Susceptible [facility] Comment on above: Performed By: #### 6 30-4 #### [facility] ([id number]) [address] [place] [address], [address] [place] [address] AMMONIAon 07-18-2022 Ammonia (P) [Mass/Vol] ug/dL Critically low 11-32 [facility] Comment on above: Performed By: #### H STROPN, TSH, CMP #### [facility] [address] [place] [address] Dr. King Moya CBC AUTO DIFFon 07-18-2022 BASO # 0.1 103/ul Normal 0.0-0.1 [facility] Comment on above: Performed By: #### C BC #### [facility] [address] [place] [address] Dr. King Moya Basophils/100 WBC (Bld) 0.7 % Normal 0.2-2.0 [facility] Comment on above: Performed By: #### C BC #### [facility] [address] [place] [address] Dr. King Moya EO # 0.1 103/ul Normal 0.0-0.7 [facility] Comment on above: Performed By: #### C BC #### [facility] [address] [address] [address] King Moya Eosinophils/100 WBC (Bld) 1.4 % Normal 0.9-7.0 [facility] Comment on above: Performed By: #### C BC #### [facility] [address] [place] [address] Dr. King Moya Erythrocyte distribution width (RBC) [Ratio] 12.7 % Normal 11.0-15.0 [facility] Comment on above: Performed By: #### C BC #### [facility] [address] [place] [address] Dr. King Moya Hematocrit (Bld) [Volume fraction] 32.5 % Critically low 36.0-48.0 [facility] Comment on above: Performed By: #### C BC #### [facility] [address] [place] [address] Dr. King Moya Hemoglobin (Bld) [Mass/Vol] 10.6 g/dL Critically low 12.0-16.0 [facility] Comment on above: Performed By: #### C BC #### [facility] [address] [place] [address] Dr. King Moya IG # 0.05 10e3/ul Critically high 0.00-0.03 [facility] Comment on above: Performed By: #### C BC #### [facility] [address] [place] [address] Dr. King Moya IG % 0.6 % Critically high 0.0-0.5 [facility] Comment on above: Performed By: #### C BC #### [facility] [address] [place] [address] Dr. King Moya LYMPH # 2.8 103/ul Normal 1.2-3.8 [facility] Comment on above: Performed By: #### C BC #### [facility] [address] [place] [address] Dr. King Moya Lymphocytes/100 WBC (Bld) 31.0 % Normal 20.5-60.0 [facility] Comment on above: Performed By: #### C BC #### [facility] [address] [place] [address] Dr. King Moya MANUAL DIFF REQ NO Normal [facility] Comment on above: Performed By: #### C BC #### [facility] [address] [place] [address] Dr. King Moya MCH (RBC) [Entitic mass] 31.5 pg Normal 26.7-34.0 [facility] Comment on above: Performed By: #### C BC #### [facility] [address] [address] [address] King Moya MCHC (RBC) [Mass/Vol] 32.6 g/dL Normal 29.9-35.2 [facility] Comment on above: Performed By: #### C BC #### [facility] [address] [address] [address] King Moya MCV (RBC) [Entitic vol] 96.4 fL Normal 81.0-99.0 [facility] Comment on above: Performed By: #### C BC #### [facility] [address] [address] [address] King Moya MONO # 0.8 103/ul Normal 0.3-0.8 [facility] Comment on above: Performed By: #### C BC #### [facility] [address] [place] [address] Dr. King Moya Monocytes/100 WBC (Bld) 9.1 % Normal 1.7-12.0 [facility] Comment on above: Performed By: #### C BC #### [facility] [address] [place] [address] Dr. King Moya NEUT # 5.1 103/ul Normal 1.4-6.5 [facility] Comment on above: Performed By: #### C BC #### [facility] [address] [place] [address] Dr. King Moya Neutrophils/100 WBC (Bld) 57.2 % Normal 43.0-75.0 [facility] Comment on above: Performed By: #### C BC #### [facility] [address] [address] [address] King Moya Platelet mean volume (Bld) [Entitic vol] 9.2 fL Critically low 9.5-13.5 [facility] Comment on above: Performed By: #### C BC #### [facility] [address] [address] [address] King Moya PLT 258 103/ul Normal 150-450 [facility] Comment on above: Performed By: #### C BC #### [facility] [address] [address] [address] King Moya RBC 3.37 106/ul Critically low 4.20-5.40 [facility] Comment on above: Performed By: #### C BC #### [facility] [address] [address] [address] King Moya WBC 8.9 103/ul Normal 4.0-11.0 [facility] Comment on above: Performed By: #### C BC #### [facility] [address] [place] [address] Dr. King Moya Covid-19 PCR ([facility])on 07-09 SARS-CoV-2 (COVID-19) RNA TEMO+probe Ql (Unsp spec) Not detected Normal NOT DETECTED [facility] Comment on above: Result Comment: When diagnostic [...] for this test is supported by the Marketing Research Intern of Health and Human Service's declaration that [...] By: #### H STROPN, TSH, CMP #### [facility] [address] [place] [address] Dr. King Moya ER URINE PROFILEon 3 Bilirubin Ql (U) Negative Normal NEGATIVE [facility] Comment on above: Performed By: #### E RUR #### [facility] [address] [place] [address] Dr. King Moya Clarity (U) CLEAR Normal CLEAR [facility] Comment on above: Performed By: #### E RUR #### [facility] [address] [place] [address] Dr. King Moya Color (U) YELLOW Normal YELLOW [facility] Comment on above: Performed By: #### E RUR #### [facility] [address] [place] [address] Dr. King MELISSA A micrscopic examination will be performed if indicated. Normal [facility] Comment on above: Performed By: #### E RUR #### [facility] [address] [place] [address] Dr. King Moya Glucose Ql (U) Negative Normal NEGATIVE [facility] Comment on above: Performed By: #### E RUR #### [facility] [address] [place] [address] Dr. King Moya Hemoglobin Ql (U) Negative Normal NEGATIVE [facility] Comment on above: Performed By: #### E RUR #### [facility] [address] [place] [address] Dr. King Moya Ketones Ql (U) 40 mg/dl Abnormal NEGATIVE [facility] Comment on above: Performed By: #### E RUR #### [facility] [address] [place] [address] Dr. King Moya LEUKOCYTES Negative Normal NEGATIVE [facility] Comment on above: Performed By: #### E RUR #### [facility] [address] [place] [address] Dr. King Moya Nitrite Ql (U) Negative Normal NEGATIVE [facility] Comment on above: Performed By: #### E RUR #### [facility] [address] [place] [address] Dr. King Moya pH (U) 6.5 [pH] Normal 5-9 [facility] Comment on above: Performed By: #### E RUR #### [facility] [address] [place] [address] Dr. King Moya SPEC GRAVITY 1.020 Normal 1.005-<=1.[address] [facility] Comment on above: Performed By: #### E RUR #### [facility] [address] [place] [address] Dr. King Moya UA PROTEIN Negative Normal NEGATIVE/ TRACE [facility] Comment on above: Performed By: #### E RUR #### [facility] [address] [place] [address] Dr. King Moya UR MICRO IND NOT INDICATED Normal [facility] Comment on above: Performed By: #### E RUR #### [facility] [address] [place] [address] Dr. King Moya Urobilinogen Qn (U) 0.2 {Kannan'U}/dL Normal 0.2 - 1. 0 [facility] Comment on above: Performed By: #### E RUR #### [facility] [address] [place] [address] Dr. King Moya FREE T3on 07-18-2022 FREE T3 1.64 pg/mlL Critically low 2.18-3.98 [facility] Comment on above: Performed By: #### H STROPN, TSH, CMP #### [facility] [address] [place] [address] Dr. King Moya FREE T4on 07-18-2022 Free T4 [Mass/Vol] 0.73 ng/dL Critically low 0.76-1.46 [facility] Comment on above: Performed By: #### H STROPN, TSH, CMP #### [facility] [address] [place] [address] Dr. King Moya LACTATE/LACTIC ACIDon 2022 Lactate [Moles/Vol] 1.1 mmol/L Normal 0.4-2.0 [facility] Comment on above: Performed By: #### L ACT #### [facility] [address] [place] [address] Dr. King Moya PROF 14(COMP METB)on 023 Albumin [Mass/Vol] 2.9 g/dL Critically low 3.4-5.0 [facility] Comment on above: Performed By: #### H STROPN, TSH, CMP #### [facility] [address] [address] [address] King Moya Albumin/Globulin [Mass ratio] 0.9 {ratio} Normal [facility] Comment on above: Performed By: #### H STROPN, TSH, CMP #### [facility] [address] [place] [address] Dr. King Moya ALP [Catalytic activity/Vol] 68 U/L Normal 46-116 [facility] Comment on above: Performed By: #### H STROPN, TSH, CMP #### [facility] [address] [place] [address] Dr. King Moya ALT [Catalytic activity/Vol] 12 U/L Critically low 14-59 [facility] Comment on above: Performed By: #### H STROPN, TSH, CMP #### [facility] [address] [place] [address] Dr. King Moya Anion gap [Moles/Vol] 8.6 mmol/L Normal [facility] Comment on above: Performed By: #### H STROPN, TSH, CMP #### [facility] [address] [place] [address] Dr. King Moya AST [Catalytic activity/Vol] 16 U/L Normal 15-37 [facility] Comment on above: Performed By: #### H STROPN, TSH, CMP #### [facility] [address] [place] [address] Dr. King Moya Bilirubin [Mass/Vol] 0.1 mg/dL Critically low 0.2-1.0 [facility] Comment on above: Performed By: #### H STROPN, TSH, CMP #### [facility] [address] [place] [address] Dr. King Moya Calcium [Mass/Vol] 8.4 mg/dL Critically low 8.5-10.1 [facility] Comment on above: Performed By: #### H STROPN, TSH, CMP #### [facility] [address] [place] [address] Dr. King Moya Chloride [Moles/Vol] 106 mmol/L Normal 98-107 [facility] Comment on above: Performed By: #### H STROPN, TSH, CMP #### [facility] [address] [address] [address] King Moya CO2 [Moles/Vol] 29.3 mmol/L Normal 21.0-32.0 [facility] Comment on above: Performed By: #### H STROPN, TSH, CMP #### [facility] [address] [place] [address] Dr. King Moya Creatinine [Mass/Vol] 1.19 mg/dL Critically high 0.55-1.02 [facility] Comment on above: Performed By: #### H STROPN, TSH, CMP #### [facility] [address] [place] [address] Dr. King Moya EGFR-AF NIGERIEN 53 mL/min/1.73m2 Critically low >=60 [facility] Comment on above: Performed By: #### H STROPN, TSH, CMP #### [facility] [address] [place] [address] Dr. King Moya EGFR-NON AF NIGERIEN 43 mL/min/1.73m2 Critically low >=60 [facility] Comment on above: Performed By: #### H STROPN, TSH, CMP #### [facility] [address] [place] [address] Dr. King Moya Globulin (S) [Mass/Vol] 3.1 g/dL Normal [facility] Comment on above: Performed By: #### H STROPN, TSH, CMP #### [facility] [address] [place] [address] Dr. King Moya Glucose [Mass/Vol] 105 mg/dL Normal 74-106 [facility] Comment on above: Performed By: #### H STROPN, TSH, CMP #### [facility] [address] [place] [address] Dr. King Moya Potassium [Moles/Vol] 4.9 mmol/L Normal 3.5-5.1 [facility] Comment on above: Performed By: #### H STROPN, TSH, CMP #### [facility] [address] [address] [address] King Moya Protein [Mass/Vol] 6.0 g/dL Critically low 6.4-8.2 [facility] e [facility] Comment on above: Performed By: #### H WILMA TSH, CMP #### [facility] [address] [address] [address] King Moya Sodium [Moles/Vol] 139 mmol/L Normal 136-145 [facility] Comment on above: Performed By: #### H WILMA TSH, CMP #### [facility] [address] [place] [address] Dr. King Moya Urea nitrogen [Mass/Vol] 19.0 mg/dL Critically high 7.0-18.0 [facility] Comment on above: Performed By: #### H WILMA TSH, CMP #### [facility] [address] [place] [address] Dr. King Moya Urea nitrogen/Creatinine [Mass ratio] 16.0 mg/mg Normal [facility] Comment on above: Performed By: #### H WILMA TSH, CMP #### [facility] [address] [place] [address] Dr. King Moya PROTIMEon 07-18-2022 INR Coag (PPP) [Relative time] 0.97 {INR} Normal [facility] Comment on above: Performed By: #### P T, PTT #### [facility] [address] [place] [address] Dr. King Moya INR GUIDELINES SEE BELOW Normal [facility] Comment on above: Result Comment: LORRI RED INR: 2.0 - 3.0 CONDITIONS NOT LISTED BELOW 2.5 - 3.5 FOR PROSTHETIC HEART VALVE REPLACEMENT 2.5 - 3.5 RECURRENT THROMBOSIS Performed By: #### P T, PTT #### [facility] [address] [place] [address] Dr. King Moya PT Coag (PPP) [Time] 10.3 s Normal 9.0-11.6 [facility] Comment on above: Performed By: #### P T, PTT #### [facility] [address] [place] [address] Dr. King Moya PTTon 07-18-2022 aPTT Coag (Bld) [Time] 23.2 s Normal 22.3-36.2 Th e [facility] Comment on above: Performed By: #### P T, PTT #### [facility] [address] [place] [address] Dr. King Moya TROPONIN, HIGH SENSITIVITYon 07-18-2022 HSTROP 8.6 pg/mL Normal 4.0-51.3 [facility] Comment on above: Result Comment: CUT- OFF POINTS HAVE BEEN ESTABLISHED BASED ON THE FOURTH UNIVERSAL DEFINITIONS OF MYOCARDIAL INFARCTION. THE UPPER REFERENCE LIMIT (URL) OF TROPONIN, DEFINED THE 99TH PERCENTILE OF cTnI DISTRIBUTION IN A REFERENCE POPULATION, HAS BEEN CONFIRMED THE DECISION THRESHOLD FOR [place] DIAGNOSIS. Performed By: #### H WILMA, TSH, CMP #### [facility] [address] [place] [address] Dr. King Moya TSHon 07-18-2022 TSH 8.354 uIU/mL Critically high 0.358-3.740 [facility] Comment on above: Performed By: #### H WILMA, TSH, CMP #### [facility] [address] [place] [address] Dr. King Moay XR CHEST 1 Von 07-18-2022 XR CHEST 1 V CHEST X-RAY, 1 VIEW HISTORY: Hypotension. COMPARISON: 07/08/2022. FINDINGS: The cardiac silhouette is normal in size. There are aortic calcifications. The lungs are grossly clear. There are no pleural effusions. There is no pneumothorax. IMPRESSION: No evidence of acute cardiopulmonary disease. Electronically authenticated by: DAVIN CLAYTON Date: 2022-07-18 19:[address] [facility] CULTURE URINEon 07-11-2022 CULTURE URINE Isolate [...] Trimethoprim/Sulfametho xazole <=20 S F Normal [facility] Comment on above: Performed By: #### H STROPN, TSH, CMP #### [facility] [address] [place] [address] Dr. King Moya ACETONE SERUMon 07-08-2022 ACETONE Negative Normal NEGATIVE [facility] Comment on above: Performed By: #### A CETON #### [facility] [address] [place] [address] Dr. King Moya CBC AUTO DIFFon 07-08-2022 BASO # 0.1 103/ul Normal 0.0-0.1 [facility] Comment on above: Performed By: #### H STROPN, TSH, CMP #### [facility] [address] [place] [address] Dr. King Moya Basophils/100 WBC (Bld) 0.7 % Normal 0.2-2.0 [facility] Comment on above: Performed By: #### H STROPN, TSH, CMP #### [facility] [address] [place] [address] Dr. King Moya EO # 0.1 103/ul Normal 0.0-0.7 [facility] Comment on above: Performed By: #### H STROPN, TSH, CMP #### [facility] [address] [place] [address] Dr. King Moya Eosinophils/100 WBC (Bld) 1.5 % Normal 0.9-7.0 [facility] Comment on above: Performed By: #### H STROPN, TSH, CMP #### [facility] [address] [place] [address] Dr. King Moya Erythrocyte distribution width (RBC) [Ratio] 12.8 % Normal 11.0-15.0 [facility] Comment on above: Performed By: #### H STROPN, TSH, CMP #### [facility] [address] [place] [address] Dr. King Moya Hematocrit (Bld) [Volume fraction] 35.5 % Critically low 36.0-48.0 [facility] Comment on above: Performed By: #### H STROPN, TSH, CMP #### [facility] [address] [place] [address] Dr. King Moya Hemoglobin (Bld) [Mass/Vol] 11.6 g/dL Critically low 12.0-16.0 [facility] Comment on above: Performed By: #### H STROPN, TSH, CMP #### [facility] [address] [place] [address] Dr. King Moya IG # 0.05 10e3/ul Critically high 0.00-0.03 [facility] Comment on above: Performed By: #### H STROPN, TSH, CMP #### [facility] [address] [place] [address] Dr. King Moya IG % 0.6 % Critically high 0.0-0.5 [facility] Comment on above: Performed By: #### H STROPN, TSH, CMP #### [facility] [address] [place] [address] Dr. King Moya LYMPH # 2.8 103/ul Normal 1.2-3.8 [facility] Comment on above: Performed By: #### H STROPN, TSH, CMP #### [facility] [address] [place] [address] Dr. King Moya Lymphocytes/100 WBC (Bld) 31.8 % Normal 20.5-60.0 [facility] Comment on above: Performed By: #### H STROPN, TSH, CMP #### [facility] [address] [place] [address] Dr. King Moya MANUAL DIFF REQ NO Normal [facility] Comment on above: Performed By: #### H STROPN, TSH, CMP #### [facility] [address] [place] [address] Dr. King Moya MCH (RBC) [Entitic mass] 31.1 pg Normal 26.7-34.0 [facility] Comment on above: Performed By: #### H STROPN, TSH, CMP #### [facility] [address] [place] [address] Dr. King Moya MCHC (RBC) [Mass/Vol] 32.7 g/dL Normal 29.9-35.2 [facility] Comment on above: Performed By: #### H STROPN, TSH, CMP #### [facility] [address] [place] [address] Dr. King Moya MCV (RBC) [Entitic vol] 95.2 fL Normal 81.0-99.0 [facility] Comment on above: Performed By: #### H STROPN, TSH, CMP #### [facility] [address] [place] [address] Dr. King Moya MONO # 0.7 103/ul Normal 0.3-0.8 [facility] Comment on above: Performed By: #### H STROPN, TSH, CMP #### [facility] [address] [place] [address] Dr. King Moya Monocytes/100 WBC (Bld) 7.8 % Normal 1.7-12.0 [facility] Comment on above: Performed By: #### H STROPN, TSH, CMP #### [facility] [address] [place] [address] Dr. King Moya NEUT # 5.1 103/ul Normal 1.4-6.5 [facility] Comment on above: Performed By: #### H STROPN, TSH, CMP #### [facility] [address] [place] [address] Dr. King Moya Neutrophils/100 WBC (Bld) 57.6 % Normal 43.0-75.0 [facility] Comment on above: Performed By: #### H STROPN, TSH, CMP #### [facility] [address] [place] [address] Dr. King Moya Platelet mean volume (Bld) [Entitic vol] 9.1 fL Critically low 9.5-13.5 [facility] Comment on above: Performed By: #### H STROPN, TSH, CMP #### [facility] [address] [place] [address] Dr. King Moya PLT 253 103/ul Normal 150-450 [facility] Comment on above: Performed By: #### H STROPN, TSH, CMP #### [facility] [address] [address] [address] King Moya RBC 3.73 106/ul Critically low 4.20-5.40 [facility] Comment on above: Performed By: #### H STROPN, TSH, CMP #### [facility] [id number] King Moya WBC 8.9 103/ul Normal 4.0-11.0 [facility] Comment on above: Performed By: #### H STROPN, TSH, CMP #### [facility] [address] [address] [address] STROKE HEAD WOon [...] ABE BOSCH Date: 2022-07-08 19:27 Normal [facility] ER URINE PROFILEon 3 Bilirubin Ql (U) Negative Normal NEGATIVE [facility] Comment on above: Performed By: #### H STROPN, TSH, CMP #### [facility] [address] [address] [address] King Moya Clarity (U) CLEAR Normal CLEAR [facility] Comment on above: Performed By: #### H STROPN, TSH, CMP #### [facility] [address] [address] [address] King Moya Color (U) YELLOW Normal YELLOW [facility] Comment on above: Performed By: #### H STROPN, TSH, CMP #### [facility] [address] [address] [address] King CASILLASAHEddie A micrscopic examination will be performed if indicated. Normal [facility] Comment on above: Performed By: #### H STROPN, TSH, CMP #### [facility] [address] [address] [address] King Moya Glucose Ql (U) Negative Normal NEGATIVE [facility] Comment on above: Performed By: #### H STROPN, TSH, CMP #### [facility] [address] [address] [address] King Moya Hemoglobin Ql (U) Negative Normal NEGATIVE [facility] Comment on above: Performed By: #### H STROPN, TSH, CMP #### [facility] [address] [place] [address] Dr. King Moya Ketones Ql (U) TRACE Abnormal NEGATIVE [facility] Comment on above: Performed By: #### H STROPN, TSH, CMP #### [facility] [address] [address] [address] King Moya LEUKOCYTES TRACE Abnormal NEGATIVE [facility] Comment on above: Performed By: #### H STROPN, TSH, CMP #### [facility] [address] [place] [address] Dr. King Moya Nitrite Ql (U) Negative Normal NEGATIVE [facility] Comment on above: Performed By: #### H STROPN, TSH, CMP #### [facility] [address] [address] [address] King Moya pH (U) 5.0 [pH] Normal 5-9 [facility] Comment on above: Performed By: #### H STROPN, TSH, CMP #### [facility] [address] [place] [address] Dr. King Moya SPEC GRAVITY >=1.030 Abnormal 1.005-<=1.[address] [facility] Comment on above: Performed By: #### H STROPN, TSH, CMP #### [facility] [address] [address] [address] King Moya UA PROTEIN TRACE Normal NEGATIVE/ TRACE [facility] Comment on above: Performed By: #### H STROPN, TSH, CMP #### [facility] [address] [address] [address] King Moya UR MICRO IND INDICATED Normal [facility] Comment on above: Performed By: #### H STROPN, TSH, CMP #### [facility] [address] [address] [address] King Moya Urobilinogen Qn (U) 0.2 {Kannan'U}/dL Normal 0.2 - 1. 0 [facility] Comment on above: Performed By: #### H STROPN, TSH, CMP #### [facility] [address] [place] [address] Dr. King Moya LACTATE/LACTIC ACIDon 2022 Lactate [Moles/Vol] 1.1 mmol/L Normal 0.4-2.0 [facility] Comment on above: Performed By: #### L ACT #### [facility] [address] [place] [address] Dr. King Moya PROF 14(COMP METB)on 023 Albumin [Mass/Vol] 3.5 g/dL Normal 3.4-5.0 [facility] [place] Comment on above: Performed By: #### H STROPN, TSH, CMP #### [facility] [address] [place] [address] Dr. King Moya Albumin/Globulin [Mass ratio] 1.2 {ratio} Normal [facility] Comment on above: Performed By: #### H STROPN, TSH, CMP #### [facility] [address] [place] [address] Dr. King Moya ALP [Catalytic activity/Vol] 58 U/L Normal 46-116 [facility] Comment on above: Performed By: #### H STROPN, TSH, CMP #### [facility] [address] [address] [address] King Moya ALT [Catalytic activity/Vol] 14 U/L Normal 14-59 [facility] Comment on above: Performed By: #### H STROPN, TSH, CMP #### [facility] [address] [address] [address] King Moya Anion gap [Moles/Vol] 10.7 mmol/L Normal Th [facility] Comment on above: Performed By: #### H STROPN, TSH, CMP #### [facility] [address] [address] [address] King Moya AST [Catalytic activity/Vol] 11 U/L Critically low 15-37 [facility] Comment on above: Performed By: #### H STROPN, TSH, CMP #### [facility] [address] [place] [address] Dr. King Moya Bilirubin [Mass/Vol] 0.2 mg/dL Normal 0.2-1.0 [facility] Comment on above: Performed By: #### H STROPN, TSH, CMP #### [facility] [address] [place] [address] Dr. King Moya Calcium [Mass/Vol] 9.2 mg/dL Normal 8.5-10.1 [facility] [place] Comment on above: Performed By: #### H STROPN, TSH, CMP #### [facility] [address] [place] [address] Dr. King Moya Chloride [Moles/Vol] 105 mmol/L Normal 98-107 [facility] Comment on above: Performed By: #### H STROPN, TSH, CMP #### [facility] [address] [place] [address] Dr. King Moya CO2 [Moles/Vol] 28.7 mmol/L Normal 21.0-32.0 [facility] Comment on above: Performed By: #### H STROPN, TSH, CMP #### [facility] [address] [place] [address] Dr. King Moya Creatinine [Mass/Vol] 1.39 mg/dL Critically high 0.55-1.02 [facility] Comment on above: Performed By: #### H STROPN, TSH, CMP #### [facility] [address] [address] [address] King Moya EGFR-AF NIGERIEN 44 mL/min/1.73m2 Critically low >=60 [facility] Comment on above: Performed By: #### H STROPN, TSH, CMP #### [facility] [address] [address] [address] King Moya EGFR-NON AF NIGERIEN 36 mL/min/1.73m2 Critically low >=60 [facility] Comment on above: Performed By: #### H STROPN, TSH, CMP #### [facility] [address] [address] [address] King Moya Globulin (S) [Mass/Vol] 2.9 g/dL Normal [facility] Comment on above: Performed By: #### H STROPN, TSH, CMP #### [facility] [address] [address] [address] King Moya Glucose [Mass/Vol] 119 mg/dL Critically high 74-106 [facility] Comment on above: Performed By: #### H STROPN, TSH, CMP #### [facility] [address] [address] [address] King Moya Potassium [Moles/Vol] 4.4 mmol/L Normal 3.5-5.1 [facility] Comment on above: Performed By: #### H STROPN, TSH, CMP #### [facility] [address] [address] [address] King Moya Protein [Mass/Vol] 6.4 g/dL Normal 6.4-8.2 [facility] [place] Comment on above: Performed By: #### H STROPN, TSH, CMP #### [facility] [address] [address] [address] King Moya Sodium [Moles/Vol] 140 mmol/L Normal 136-145 [facility] [place] Comment on above: Performed By: #### H STROPN, TSH, CMP #### [facility] [address] [address] [address] King Moya Urea nitrogen [Mass/Vol] 24.0 mg/dL Critically high 7.0-18.0 [facility] Comment on above: Performed By: #### H STROPN, TSH, CMP #### [facility] [address] [place] [address] Dr. King Moya Urea nitrogen/Creatinine [Mass ratio] 17.3 mg/mg Normal [facility] Comment on above: Performed By: #### H STROPN, TSH, CMP #### [facility] [address] [address] [address] King Moya PROTIMEon 07-08-2022 INR Coag (PPP) [Relative time] 0.97 {INR} Normal [facility] Comment on above: Performed By: #### H WILMA, TSH, CMP #### [facility] [address] [place] [address] Dr. King Moya INR GUIDELINES SEE BELOW Normal [facility] Comment on above: Result Comment: LORRI RED INR: 2.0 - 3.0 CONDITIONS NOT LISTED BELOW 2.5 - 3.5 FOR PROSTHETIC HEART VALVE REPLACEMENT 2.5 - 3.5 RECURRENT THROMBOSIS Performed By: #### H STROPN, TSH, CMP #### [facility] [address] [place] [address] Dr. King Moya PT Coag (PPP) [Time] 10.3 s Normal 9.0-11.6 [facility] Comment on above: Performed By: #### H STROPN, TSH, CMP #### [facility] [address] [place] [address] Dr. King Moya PTTon 07-08-2022 aPTT Coag (Bld) [Time] 24.8 s Normal 22.3-36.2 [facility] Comment on above: Performed By: #### H STROPN, TSH, CMP #### [facility] [address] [place] [address] Dr. King Moya TROPONIN, HIGH SENSITIVITYon 07-08-2022 HSTROP 5.9 pg/mL Normal 4.0-51.3 [facility] Comment on above: Result Comment: CUT- OFF POINTS HAVE BEEN ESTABLISHED BASED ON THE FOURTH UNIVERSAL DEFINITIONS OF MYOCARDIAL INFARCTION. THE UPPER REFERENCE LIMIT (URL) OF TROPONIN, DEFINED THE 99TH PERCENTILE OF cTnI DISTRIBUTION IN A REFERENCE POPULATION, HAS BEEN CONFIRMED THE DECISION THRESHOLD FOR [place] DIAGNOSIS. Performed By: #### H STRORODRIGO, TSH, CMP #### [facility] [address] [place] [address] Dr. King Moya TSHon 07-08-2022 TSH 6.513 uIU/mL Critically high 0.358-3.740 [facility] Comment on above: Performed By: #### H STROPN, TSH, CMP #### [facility] [address] [place] [address] Dr. King Moya URINE MICROSCOPIC ONLYon BACTERIA TRACE Abnormal NONE SEEN [facility] Comment on above: Performed By: #### H STROPN, TSH, CMP #### [facility] [address] [place] [address] Dr. King Moya Bacteria identified Cx Nom (U) INDICATED Normal [facility] Comment on above: Performed By: #### H STROPN, TSH, CMP #### [facility] [address] [place] [address] Dr. King Moya CAST SEEN Abnormal NONE SEEN [facility] Comment on above: Performed By: #### H STROPN, TSH, CMP #### [facility] [address] [place] [address] Dr. King Moya Crystals LM Nom (Urine sed) NONE SEEN Normal NONE SEEN [facility] Comment on above: Performed By: #### H STROPN, TSH, CMP #### [facility] [address] [place] [address] Dr. King Moya Epithelial cells LM Ql (Urine sed) RARE Normal NONE SEEN /RARE [facility] Comment on above: Performed By: #### H STROPN, TSH, CMP #### [facility] [address] [place] [address] Dr. King Moya HYALINE CAST RARE Normal [facility] Comment on above: Performed By: #### H STROPN, TSH, CMP #### [facility] [address] [place] [address] Dr. King Moya MUCOUS NONE SEEN Normal NONE SEEN [facility] Comment on above: Performed By: #### H STROPN, TSH, CMP #### [facility] [address] [place], [place] [address] Dr. King Moya RBC 0-2 Normal 0-2 [facility] Comment on above: Performed By: #### H STROPN, TSH, CMP #### [facility] [address] [place], [place] [address] Dr. King Moya WBC 5-10 Abnormal NONE SEEN [facility] Comment on above: Performed By: #### H STROPN, TSH, CMP #### [facility] [address] [place], [place] [address] Dr. King Moya XR CHEST 1 Von 07-08-2022 XR CHEST 1 V EXAM: XR CHEST 1 V HISTORY: SHORTNESS OF BREATH COMPARISON: None. TECHNIQUE: Single view of the chest FINDINGS: Heart size normal. No focal consolidation, pleural effusion, pulmonary congestion or pneumothorax. IMPRESSION: No acute findings. Electronically authenticated by: CLARE NUNN Date: 2022-07-08 20:02 Normal [facility] CBC with Auto Differentialon 09-23-2021 Absolute Eos # 0.[address] [facility] Absolute Immature Granulocyte 0.05 [facility] Absolute Lymph # 2.[address] [facility] Absolute Duval # 0.90 [facility] Basophils (Bld) [#/Vol] 0.10 10*3/uL [facility] Basophils/100 WBC (Bld) 1 % 0 - 2 % [facility] Eosinophils/100 WBC (Bld) 4 % 1 - 4 % [facility] Hematocrit (Bld) [Volume fraction] 35.5 % Low 36.3 - 47.1 % [facility] Hemoglobin (Bld) [Mass/Vol] 11.1 g/dL Low 11.9 - 15.1 g/dL [facility] Immature granulocytes/100 WBC (Bld) 1 % High 0 [facility] Interpretation and review of laboratory results Abnormal [facility] Lymphocytes/100 WBC (Bld) 28 % 24 - 43 % [facility] MCH (RBC) [Entitic mass] 31.4 pg 25.2 - 33.5 pg [facility] MCHC (RBC) [Mass/Vol] 31.3 g/dL 28.4 - 34.8 g/dL [facility] MCV (RBC) [Entitic vol] 100.3 fL 82.6 - 102.9 fL [facility] Monocytes/100 WBC (Bld) 9 % 3 - 12 % [facility] NRBC Automated 0.0 0.0 per 100 WBC [facility] Platelet distribution width (Bld) [Ratio] 11.9 % 11.8 - 14.4 % [facility] Platelet mean volume (Bld) [Entitic vol] 9.2 fL 8.1 - 13.5 fL [facility] Platelets (Bld) [#/Vol] 325 10*3/uL [facility] RBC (Bld) [#/Vol] 3.54 10*6/uL Low 3.95 - 5.1 1 m/uL [facility] Segmented neutrophils/100 WBC (Bld) 57 % 36 - 65 % [facility] Segs Absolute 6.06 [facility] WBC (Bld) [#/Vol] 10.4 10*3/uL [facility] CBC with Diffon 09-23-2021 Abs. Basophil 0.10 k/uL Normal 0.00-0.20 [facility] Comment on above: Performed By: #### C DP, CP #### [facility] [address] [place] [address] Commissioning Engineer: Emerson Hall MD #### LIPR #### [address] [address] Commissioning Engineer: Kyle Cowan MD Abs.Imm.Granulocyte 0.05 k/uL Normal 0.00-0.30 [facility] Comment on above: Performed By: #### C DP, CP #### [facility] [address] [place] [address] Commissioning Engineer: Emerson Hall MD #### LIPR #### [address] [address] Commissioning Engineer: Kyle Cowan MD Abs.Neutrophil (Seg) 6.06 k/uL Normal 1.50-8.10 [facility] Comment on above: Performed By: #### C DP, CP #### [facility] [address] [place] [address] Dr. [place], [place] [id number] Commissioning Engineer: Emerson Hall MD #### LIPR #### [address] [address] Commissioning Engineer: Kyle Cowan MD Basophils/100 WBC (Bld) 1 % Normal 0-2 [facility] Comment on above: Performed By: #### C DP, CP #### [address] [place] [id number] Commissioning Engineer: Emerson Hall MD #### LIPR #### [address] [address] Commissioning Engineer: Kyle Cowan MD Eosinophils (Bld) [#/Vol] 0.37 10*3/uL Normal 0.00-0.44 [facility] Comment on above: Performed By: #### C DP, CP #### [address] [place], [place] [id number] Commissioning Engineer: Emerson Hall MD #### LIPR #### [address] [address] Commissioning Engineer: Kyle Cowan MD Eosinophils/100 WBC (Bld) 4 % Normal 1-4 [facility] Comment on above: Performed By: #### C DP, CP #### [address] [place] [address] Commissioning Engineer: Emerson Hall MD #### LIPR #### [address] [id number] Commissioning Engineer: Kyle Cowan MD Erythrocyte distribution width (RBC) [Ratio] 11.9 % Normal 11.8-14.4 [facility] Comment on above: Performed By: #### C DP, CP #### [address] [place], [place] [id number] Commissioning Engineer: Emerson Hall MD #### LIPR #### [address] [id number] Commissioning Engineer: Kyle Cowan MD Hematocrit (Bld) [Volume fraction] 35.5 % Low 36.3-47.1 [facility] Comment on above: Performed By: #### C DP, CP #### [address] [place], [place] [id number] Commissioning Engineer: Emerson Hall MD #### LIPR #### [address] [address] Commissioning Engineer: Kyle Cowan MD Hemoglobin (Bld) [Mass/Vol] 11.1 g/dL Low 11.9-15.1 [facility] Comment on above: Performed By: #### C DP, CP #### [address] [place], [place] [id number] Commissioning Engineer: Emerson Hall MD #### LIPR #### [address] [address] Commissioning Engineer: Kyle Cowan MD Immature granulocytes/100 WBC (Bld) 1 % High 0 [facility] Comment on above: Performed By: #### C DP, CP #### [address] [place], [place] [id number] Commissioning Engineer: Emerson Hall MD #### LIPR #### [address] [id number] Commissioning Engineer: Kyle Cowan MD Lymphocytes (Bld) [#/Vol] 2.94 10*3/uL Normal 1.10-3.70 [facility] Comment on above: Performed By: #### C DP, CP #### [address] [id number] Commissioning Engineer: Emerson Hall MD #### LIPR #### [place] [address] Commissioning Engineer: Kyle Cowan MD Lymphocytes/100 WBC (Bld) 28 % Normal 24-43 [facility] Comment on above: Performed By: #### C DP, CP #### [address] [place] [address] Commissioning Engineer: Emerson Hall MD #### LIPR #### [place] [address] Commissioning Engineer: Kyle Cowan MD MCH (RBC) [Entitic mass] 31.4 pg Normal 25.2-33.5 [facility] Comment on above: Performed By: #### C KOLBY, CP #### [address] [place] [phone] ( Commissioning Engineer: Emerson Hall MD #### LIPR #### [place] [address] Commissioning Engineer: Kyle Cowan MD MCHC (RBC) [Mass/Vol] 31.3 g/dL Normal 28.4-34.8 [place] Comment on above: Performed By: #### C DP, CP #### [address] [place] [id number] ( Commissioning Engineer: Emerson Hall MD #### LIPR #### [place] [address] Commissioning Engineer: Kyle Cowan MD MCV (RBC) [Entitic vol] 100.3 fL Normal 82.6-102.9 [facility] Comment on above: Performed By: #### C DP, CP #### [facility] [address] [place], [place] [id number] Commissioning Engineer: Emerson Hall MD #### LIPR #### [address] [address] Commissioning Engineer: Kyle Cowan MD Monocytes (Bld) [#/Vol] 0.90 10*3/uL Normal 0.10-1.20 [facility] Comment on above: Performed By: #### C DP, CP #### [facility] [address] [place] [address] Dr. [place], [place] [phone] Commissioning Engineer: Emerson Hall MD #### LIPR #### [address] [id number] Commissioning Engineer: Kyle Cowan MD Monocytes/100 WBC (Bld) 9 % Normal 3-12 [facility] Comment on above: Performed By: #### C DP, CP #### [facility] [address] [place] [address] Dr[address] [place], [place] [id number] Commissioning Engineer: Emerson Hall MD #### LIPR #### [address] [address] Commissioning Engineer: Kyle Cowan MD Neutrophil (Seg) 57 % Normal 36-65 [facility] Comment on above: Performed By: #### C DP, CP #### [facility] [address] [place] [address] Dr[address] [place], [place] [phone] Commissioning Engineer: Emerson Hall MD #### LIPR #### [address] [address] Commissioning Engineer: Kyle Cowan MD NRBC Automated 0.0 per 100 WBC Normal 0.0 [facility] Comment on above: Performed By: #### C DP, CP #### [facility] [address] [place] [address] Commissioning Engineer: Emerson Hall MD #### LIPR #### [facility] [address] [place], [place] [id number] Commissioning Engineer: Kyle Cowan MD Platelet mean volume (Bld) [Entitic vol] 9.2 fL Normal 8.1-13.5 [facility] Comment on above: Performed By: #### C DP, CP #### [facility] [address] [place] [address] Commissioning Engineer: Emerson Hall MD #### LIPR #### [address] [phone] Commissioning Engineer: Kyle Cowan MD Platelets (Bld) [#/Vol] 325 10*3/uL Normal 138-453 [facility] Comment on above: Performed By: #### C DP, CP #### [facility] [address] [place] [address] Commissioning Engineer: Emerson Hall MD #### LIPR #### [address] [phone] Commissioning Engineer: Kyle Cowan MD RBC (Bld) [#/Vol] 3.54 10*6/uL Low 3.95-5.11 [facility] Comment on above: Performed By: #### C DP, CP #### [facility] [address] [place] [address] Commissioning Engineer: Emerson Hall MD #### LIPR #### [address] [place], [place] [id number] Commissioning Engineer: Kyle Cowan MD WBC (Bld) [#/Vol] 10.4 10*3/uL Normal 3.5-11.3 [facility] Comment on above: Performed By: #### C DP, CP #### [facility] [address] [place] [address] Commissioning Engineer: Emerson Hall MD #### LIPR #### [facility] [address] [place] [address] Commissioning Engineer: Kyle Cowan MD Comp Metabolic Profon 2021 (cont.) Normal [facility] Comment on above: Result Comment: Aver age GFR for 70 or more years old: 75 mL/min/1.73sq m Chronic Kidney Disease: <60 mL/min/1.73sq m Kidney failure: <15 mL/min/1.73sq m eGFR calculated using average adult body mass. Additional eGFR calculator available at: http://www.[employer] [place]/multiple_crcl_2011.htm Performed By: #### B C #### [address] [place] [address] Commissioning Engineer: Emerson Hall MD Albumin [Mass/Vol] 3.8 g/dL Normal 3.5-5.2 [facility] Comment on above: Performed By: #### B C #### [address] [place] [address] Commissioning Engineer: Emerson Hall MD Albumin/Glob Ratio 1.4 Normal 1.0-2.5 [facility] Comment on above: Performed By: #### B C #### [address] [place] [address] Commissioning Engineer: Emerson Hall MD Alkaline Phos 69 U/L Normal 35-104 [facility] Comment on above: Performed By: #### B C #### [address] [place] [address] Commissioning Engineer: Emerson Hall MD ALT [Catalytic activity/Vol] 6 U/L Normal 5-33 [facility] [facility] Comment on above: Performed By: #### B C #### [facility] [address] [place] [address] Dr. [place], [place] 1065483 Commissioning Engineer: Emerson Hall MD Anion gap [Moles/Vol] 6 mmol/L Low 9-17 [place] Comment on above: Performed By: #### B C #### [facility] [address] [place], [place] [id number] Commissioning Engineer: Emerson Hall MD AST [Catalytic activity/Vol] 12 U/L Normal <32 [facility] Comment on above: Performed By: #### B C #### [facility] [address] [place], [place] [id number] Commissioning Engineer: Emerson Hall MD Bilirubin [Mass/Vol] 0.27 mg/dL Low 0.3-1.2 [facility] Comment on above: Performed By: #### B C #### [facility] [address] [place], [place] 1354483 Commissioning Engineer: Emerson Hall MD BUN/CRE Ratio 26 High 9-20 [facility] Comment on above: Performed By: #### B C #### [facility] [address] [place], [place] [phone] Commissioning Engineer: Emerson Hall MD Calcium [Mass/Vol] 9.2 mg/dL Normal 8.6-10.4 [facility] Comment on above: Performed By: #### B C #### [facility] [address] [place], [place] [id number] Commissioning Engineer: Emerson Hall MD Chloride [Moles/Vol] 106 mmol/L Normal 98-107 [facility] Comment on above: Performed By: #### B C #### [facility] [address] [place], [place] 1349883 Commissioning Engineer: Emerson Hall MD CO2 [Moles/Vol] 29 mmol/L Normal 20-31 [facility] Comment on above: Performed By: #### B C #### [facility] [address] [place], [place] [phone] Commissioning Engineer: Emerson Hall MD Creatinine [Mass/Vol] 0.73 mg/dL Normal 0.50-0.90 [place] Comment on above: Performed By: #### B C #### [facility] [address] [place], [place] [phone] Commissioning Engineer: Emerson Hall MD GFR, Amer >60 Normal >60 [facility] Comment on above: Performed By: #### B C #### [facility] [address] [place], [place] [id number] Commissioning Engineer: Emerson Hall MD GFR,non Amer >60 Normal >60 [facility] Comment on above: Performed By: #### B C #### [facility] [address] [place], [place] [phone] Commissioning Engineer: Emerson Hall MD Glucose [Mass/Vol] 92 mg/dL Normal 70-99 [facility] Comment on above: Performed By: #### B C #### [facility] [address] [place], [place] [phone] Commissioning Engineer: Emerson Hall MD Potassium [Moles/Vol] 5.1 mmol/L Normal 3.7-5.3 [place] Comment on above: Performed By: #### B C #### [facility] [address] [place], [place] 7591783 Commissioning Engineer: Emerson Hall MD Protein [Mass/Vol] 6.5 g/dL Normal 6.4-8.3 [facility] Comment on above: Performed By: #### B C #### [facility] [address] [place], [place] [phone] Commissioning Engineer: Emerson Hall MD Sodium [Moles/Vol] 141 mmol/L Normal 135-144 [facility] Comment on above: Performed By: #### B C #### [facility] [address] [place] [address] Commissioning Engineer: Emerson Hall MD Staging: Normal [facility] Comment on above: Result Comment: Stag e 1: Some kidney damage normal GFR Stage 2: Mild kidney damage GFR 60-89 Stage 3: Moderate kidney damage GFR 30-59 Stage 4: Severe kidney damage GFR 15-29 Stage 5: Severe kidney damage GFR <15 ESRD - chronic treatment by dialysis or transplant Performed By: #### B C #### [facility] [address] [place] [phone] Commissioning Engineer: Emerson Hall MD Urea nitrogen [Mass/Vol] 19 mg/dL Normal 8- [facility] Comment on above: Performed By: #### B C #### [facility] [address] [place] [address] Commissioning Engineer: Emerson Hall MD [facility] Metabolic [facility] 09-23-2021 Albumin [Mass/Vol] 3.8 g/dL 3.5 - 5.2 g/dL [facility] Albumin/Globulin [Mass ratio] 1.4 {ratio} [facility] ALP (Bld) [Catalytic activity/Vol] 69 U/L 35 - 104 U/L [facility] ALT [Catalytic activity/Vol] 6 U/L 5 - 33 U/L [facility] Anion gap [Moles/Vol] 6 mmol/L Low 9 - 17 mmol/L [facility] AST [Catalytic activity/Vol] 12 U/L <32 [facility] Bilirubin [Mass/Vol] 0.27 mg/dL Low 0.3 - 1 .2 mg/dL [facility] Calcium [Mass/Vol] 9.2 mg/dL 8.6 - 10. 4 mg/dL [facility] Chloride [Moles/Vol] 106 mmol/L 98 - 10 7 mmol/L [facility] CO2 [Moles/Vol] 29 mmol/L 20 - 31 mmol/L [facility] Creatinine [Mass/Vol] 0.73 mg/dL 0.50 - 0.90 mg/dL [facility] Free PSA/Total PSA [Mass fraction] 6.5 g/dL 6.4 - 8.3 g/dL [facility] GFR >60 >60 mL/min [facility] GFR Non- >60 >60 mL/min [facility] Glucose [Mass/Vol] 92 mg/dL 70 - 99 mg/dL [facility] Interpretation and review of laboratory results Abnormal [facility] Potassium [Moles/Vol] 5.1 mmol/L 3.7 - 5.3 mmol/L [facility] Sodium [Moles/Vol] 141 mmol/L 135 - 144 mmol/L [facility] Urea nitrogen (BldV) [Mass/Vol] 19 mg/dL 8 - 23 mg/dL [facility] Urea nitrogen/Creatinine (Bld) [Mass ratio] 26 High [facility] Laboratory - Chemistry and C hemistry - challengeon 09-23-2021 GFR/1.73 sq M.predicted MDRD (S/P/Bld) [Vol rate/Area] [facility] Comment on above: Average GFR for 70 o r more years old: 75 mL/min/1.73sq m Chronic Kidney Disease: <60 mL/min/1.73sq m Kidney failure: <15 mL/min/1.73sq m eGFR calculated using average adult body mass. Additional eGFR calculator available at: http://www.[employer]/multiple_crcl_2012.htm Stage 1: Some kidney damage normal GFR Stage 2: Mild kidney damage GFR 60-89 Stage 3: Moderate kidney damage GFR 30-59 Stage 4: Severe kidney damage GFR 15-29 Stage 5: Severe kidney damage GFR <15 ESRD - chronic treatment by dialysis or transplant Lipid Panelon 09-23-2021 Cholesterol [Mass/Vol] 150 mg/dL <200 [facility] Comment on above: Cholesterol Guidelines: <200 Desirable 200-240 Borderline >240 Undesirable Cholesterol in HDL [Mass/Vol] 48 mg/dL >40 [facility] Comment on above: HDL Guidelines: <40 Undesirable 40-59 Borderline >59 Desirable Cholesterol in LDL [Mass/Vol] 83 mg/dL 0 - 130 mg/dL [facility] Comment on above: LDL Guidelines: <100 Desirable 100-129 Near to/above Desirable 130-159 Borderline >159 Undesirable Direct (measured) LDL and calculated LDL are not interchangeable tests. Cholesterol.total/Chol esterol in HDL [Mass ratio] 3.1 {ratio} <5 [facility] Triglyceride [Mass/Vol] 97 mg/dL <150 [facility] Comment on above: Triglyceride Guidelines: <150 Desirable 150-199 Borderline 200-499 High >499 Very high Based on AHA Guidelines for fasting triglyceride, January 2012. [facility] Lipid Profileon 09-23-2021 Cholesterol [Mass/Vol] 150 mg/dL Normal <200 [facility] Comment on above: Result Comment: Cholesterol Guidelines: <200 Desirable 200-240 Borderline >240 Undesirable Performed By: #### B C #### [facility] [address] [place] [address] [place] [address] Commissioning Engineer: Emerson Hall MD Cholesterol in HDL [Mass/Vol] 48 mg/dL Normal >40 [facility] Comment on above: Result Comment: HDL Guidelines: <40 Undesirable 40-59 Borderline >59 Desirable Performed By: #### B C #### [address] [place] [address] Commissioning Engineer: Emerson Hall MD Cholesterol in LDL [Mass/Vol] 83 mg/dL Normal 0-130 [facility] Comment on above: Result Comment: LDL Guidelines: <100 Desirable 100-129 Near to/above Desirable 130-159 Borderline >159 Undesirable Direct (measured) LDL and calculated LDL are not interchangeable tests. Performed By: #### B C #### [facility] [address] [place] [address] [place] [address] Commissioning Engineer: Emerson Hall MD Cholesterol.total/Chol esterol in HDL [Mass ratio] 3.1 {ratio} Normal <5 [facility] Comment on above: Performed By: #### B C #### [facility] [address] [place] [address] Commissioning Engineer: Emerson Hall MD Triglyceride [Mass/Vol] 97 mg/dL Normal <150 [facility] Comment on above: Result Comment: Triglyceride Guidelines: <150 Desirable 150-199 Borderline 200-499 High >499 Very high Based on AHA Guidelines for fasting triglyceride, January 2012. Performed By: #### B C #### [address] [place] [address] Commissioning Engineer: Emerson Hall MD Lipid Profileon 04-29-2021 Cholesterol [Mass/Vol] 162 mg/dL Normal <200 [facility] Comment on above: Result Comment: Cholesterol Guidelines: <200 Desirable 200-240 Borderline >240 Undesirable Performed By: #### C DP, CP #### [address] [place] [address] Commissioning Engineer: Emerson Hall MD #### LIPR #### [address] [id number] Commissioning Engineer: Kyle Cowan MD Cholesterol in HDL [Mass/Vol] 58 mg/dL Normal >40 [facility] Comment on above: Result Comment: HDL Guidelines: <40 Undesirable 40-59 Borderline >59 Desirable Performed By: #### C DP, CP #### [address] [place] [address] Commissioning Engineer: Emerson Hall MD #### LIPR #### [address] [phone] Commissioning Engineer: Kyle Cowan MD Cholesterol in LDL [Mass/Vol] 86 mg/dL Normal 0-130 [facility] Comment on above: Result Comment: LDL Guidelines: <100 Desirable 100-129 Near to/above Desirable 130-159 Borderline >159 Undesirable Direct (measured) LDL and calculated LDL are not interchangeable tests. Performed By: #### C DP, CP #### [address] [place] [address] Commissioning Engineer: Emerson Hall MD #### LIPR #### [place] [address] [place], [place] 4432108 Commissioning Engineer: Kyle Cowan MD Cholesterol.total/Chol esterol in HDL [Mass ratio] 2.8 {ratio} Normal <5 [facility] Comment on above: Performed By: #### C DP, CP #### [address] [place] [phone] ( Commissioning Engineer: Emerson Hall MD #### LIPR #### [place] [phone] Commissioning Engineer: Kyle Cowan MD Triglyceride [Mass/Vol] 88 mg/dL Normal <150 [facility] Comment on above: Result Comment: Triglyceride Guidelines: <150 Desirable 150-199 Borderline 200-499 High >499 Very high Based on AHA Guidelines for fasting triglyceride, January 2012. Performed By: #### C DP, CP #### [address] [place] [id number] ( Commissioning Engineer: Emerson Hall MD #### LIPR #### [place] [address] Commissioning Engineer: Kyle Cowan MD CBC with Diffon 04-28-2021 Abs. Basophil 0.06 k/uL Normal 0.00-0.20 [facility] Comment on above: Performed By: #### C DP, CP #### [address] [place] [id number] Commissioning Engineer: Emerson Hall MD #### LIPR #### [address] [id number] Commissioning Engineer: Kyle Cowan MD Abs.Imm.Granulocyte <0.03 Normal 0.00-0.30 [facility] Comment on above: Performed By: #### C DP, CP #### [address] [place] [phone] Commissioning Engineer: Emerson Hall MD #### LIPR #### [place] [phone] Commissioning Engineer: Kyle Cowan MD Abs.Neutrophil (Seg) 5.78 k/uL Normal 1.50-8.10 [facility] Comment on above: Performed By: #### C DP, CP #### [address] [place] [phone] Commissioning Engineer: Emerson Hall MD #### LIPR #### [place] [phone] Commissioning Engineer: Kyle Cowan MD Basophils/100 WBC (Bld) 1 % Normal 0-2 [facility] Comment on above: Performed By: #### C DP, CP #### [address] [place] [phone] ( Commissioning Engineer: Emerson Hall MD #### LIPR #### [place] [address] Commissioning Engineer: Kyle Cowan MD Eosinophils (Bld) [#/Vol] 0.19 10*3/uL Normal 0.00-0.44 [facility] Comment on above: Performed By: #### C DP, CP #### [address] [place] [phone] Commissioning Engineer: Emerson Hall MD #### LIPR #### [place] [address] Commissioning Engineer: Kyle Cowan MD Eosinophils/100 WBC (Bld) 2 % Normal 1-4 [facility] Comment on above: Performed By: #### C DP, CP #### [address] [place] [phone] Commissioning Engineer: Emerson Hall MD #### LIPR #### [address] [place], [place] [phone] Commissioning Engineer: Kyle Cowan MD Erythrocyte distribution width (RBC) [Ratio] 12.3 % Normal 11.8-14.4 [facility] Comment on above: Performed By: #### C DP, CP #### [facility] [address] [place] [address] Dr. [place], [place] [phone] Commissioning Engineer: Emerson Hall MD #### LIPR #### [address] [place], [place] 0489208 Commissioning Engineer: Kyle Cowan MD Hematocrit (Bld) [Volume fraction] 37.6 % Normal 36.3-47.1 [facility] Comment on above: Performed By: #### C DP, CP #### [address] [place] [phone] Commissioning Engineer: Emerson Hall MD #### LIPR #### [address] [place], [place] [phone] Commissioning Engineer: Kyle Cowan MD Hemoglobin (Bld) [Mass/Vol] 12.1 g/dL Normal 11.9-15.1 [facility] Comment on above: Performed By: #### C DP, CP #### [address] [place] [address] Commissioning Engineer: Emerson Hall MD #### LIPR #### [address] [place], [place] [phone] Commissioning Engineer: Kyle Cowan MD Immature granulocytes/100 WBC (Bld) 0 % Normal 0 [facility] Comment on above: Performed By: #### C DP, CP #### [address] [place] [address] Commissioning Engineer: Emerson Hall MD #### LIPR #### [address] [place], [place] [phone] Commissioning Engineer: Kyle Cowan MD Lymphocytes (Bld) [#/Vol] 3.12 10*3/uL Normal 1.10-3.70 [facility] Comment on above: Performed By: #### C DP, CP #### [facility] [address] [place] [phone] Commissioning Engineer: Emerson Hall MD #### LIPR #### [address] [phone] Commissioning Engineer: Kyle Cowan MD Lymphocytes/100 WBC (Bld) 32 % Normal 24-43 [facility] Comment on above: Performed By: #### C DP, CP #### [facility] [address] [place] [address] Dr. [place] [phone] ( Commissioning Engineer: Emerson Hall MD #### LIPR #### [address] [address] Commissioning Engineer: Kyle Cowan MD MCH (RBC) [Entitic mass] 31.6 pg Normal 25.2-33.5 [facility] Comment on above: Performed By: #### C DP, CP #### [address] [place] [phone] Commissioning Engineer: Emerson Hall MD #### LIPR #### [address] [address] Commissioning Engineer: Kyle Cowan MD MCHC (RBC) [Mass/Vol] 32.2 g/dL Normal 28.4-34.8 [place] Comment on above: Performed By: #### C DP, CP #### [facility] [address] [place] [address] Dr. [place], [place] 1087483 Commissioning Engineer: Emerson Hall MD #### LIPR #### [address] [address] Commissioning Engineer: Kyle Cowan MD MCV (RBC) [Entitic vol] 98.2 fL Normal 82.6-102.9 [facility] Comment on above: Performed By: #### C DP, CP #### [facility] [address] [place], [place] 9923083 Commissioning Engineer: Emerson Hall MD #### LIPR #### [address] [address] Commissioning Engineer: Kyle Cowan MD Monocytes (Bld) [#/Vol] 0.69 10*3/uL Normal 0.10-1.20 [facility] Comment on above: Performed By: #### C DP, CP #### [address] [place] [phone] Commissioning Engineer: Emerson Hall MD #### LIPR #### [address] [address] Commissioning Engineer: Kyle Cowan MD Monocytes/100 WBC (Bld) 7 % Normal 3-12 [facility] Comment on above: Performed By: #### C DP, CP #### [address] [place] [address] Commissioning Engineer: Emerson Hall MD #### LIPR #### [address] [address] Commissioning Engineer: Kyle Cowan MD Neutrophil (Seg) 58 % Normal 36-65 [facility] Comment on above: Performed By: #### C DP, CP #### [address] [place], [place] 8789183 Commissioning Engineer: Emerson Hall MD #### LIPR #### [address] [address] Commissioning Engineer: Kyle Cowan MD NRBC Automated 0.0 per 100 WBC Normal 0.0 [facility] Comment on above: Performed By: #### C DP, CP #### [facility] [address] [place] [address] Commissioning Engineer: Emerson Hall MD #### LIPR #### [address] [phone] Commissioning Engineer: Kyle Cowan MD Platelet mean volume (Bld) [Entitic vol] 9.8 fL Normal 8.1-13.5 [facility] Comment on above: Performed By: #### C DP, CP #### [address] [place] [address] Commissioning Engineer: Emerson Hall MD #### LIPR #### [address] [phone] Commissioning Engineer: Kyle Cowan MD Platelets (Bld) [#/Vol] 299 10*3/uL Normal 138-453 [facility] Comment on above: Performed By: #### C DP, CP #### [address] [place] [address] Commissioning Engineer: Emerson Hall MD #### LIPR #### [address] [phone] Commissioning Engineer: Kyle Cowan MD RBC (Bld) [#/Vol] 3.83 10*6/uL Low 3.95-5.11 [facility] Comment on above: Performed By: #### C DP, CP #### [facility] [address] [place] [address] Commissioning Engineer: Emerson Hall MD #### LIPR #### [address] [address] Commissioning Engineer: Kyle Cowan MD WBC (Bld) [#/Vol] 9.9 10*3/uL Normal 3.5-11.3 [facility] Comment on above: Performed By: #### C DP, CP #### [facility] [address] [place] [address] [place] [address] Commissioning Engineer: Emerson Hall MD #### LIPR #### [address] [address] Commissioning Engineer: Kyle Cowan MD Auto Diff Performed NOT REPORTED Normal [place] Comment on above: Performed By: #### C DP, CP #### [address] [place] [address] Commissioning Engineer: Emerson Hall MD #### LIPR #### [address] [address] Commissioning Engineer: Kyle Cowan MD Platelet Comment NOT REPORTED Normal [facility] Comment on above: Performed By: #### C DP, CP #### [address] [place] [address] Commissioning Engineer: Emerson Hall MD #### LIPR #### [address] [address] Commissioning Engineer: Kyle Cowan MD RBC morphology finding Nom (Bld) NOT REPORTED Normal [facility] Comment on above: Performed By: #### C DP, CP #### [address] [place] [address] Commissioning Engineer: Emerson Hall MD #### LIPR #### [address] [address] Commissioning Engineer: Kyle Cowan MD WBC Morphology NOT REPORTED Normal [facility] Comment on above: Performed By: #### C DP, CP #### [address] [place] [address] Commissioning Engineer: Emerson Hall MD #### LIPR #### [facility] [address] [place] [address] Commissioning Engineer: Kyle Cowan MD Comp Metabolic Profon 2021 (cont.) Normal [facility] Comment on above: Result Comment: Aver age GFR for 70 or more years old: 75 mL/min/1.73sq m Chronic Kidney Disease: <60 mL/min/1.73sq m Kidney failure: <15 mL/min/1.73sq m eGFR calculated using average adult body mass. Additional eGFR calculator available at: http://www.[employer] [place]/multiple_crcl_2011.htm Performed By: #### C KOLBY, CP #### [address] [place] [address] Commissioning Engineer: Emerson Hall MD #### LIPR #### [address] [address] Commissioning Engineer: Kyle Cowan MD Albumin [Mass/Vol] 4.0 g/dL Normal 3.5-5.2 [facility] Comment on above: Performed By: #### C KOLBY, CP #### [address] [place] [address] Commissioning Engineer: Emerson Hall MD #### LIPR #### [address] [address] Commissioning Engineer: Kyle Cowan MD Albumin/Glob Ratio 1.5 Normal 1.0-2.5 [facility] Comment on above: Performed By: #### C DP, CP #### [facility] [address] [place] [address] [place] [address] Commissioning Engineer: Emerson Hall MD #### LIPR #### [address] [address] Commissioning Engineer: Kyle Cowan MD Alkaline Phos 72 U/L Normal 35-104 [facility] Comment on above: Performed By: #### C DP, CP #### [facility] [address] [place], [place] [phone] Commissioning Engineer: Emerson Hall MD #### LIPR #### [address] [address] Commissioning Engineer: Kyle Cowan MD ALT [Catalytic activity/Vol] 10 U/L Normal 5-33 [facility] Comment on above: Performed By: #### C DP, CP #### [facility] [address] [place], [place] [phone] Commissioning Engineer: Emerson Hall MD #### LIPR #### [address] [address] Commissioning Engineer: Kyle Cowan MD Anion gap [Moles/Vol] 11 mmol/L Normal 9-17 [place] Comment on above: Performed By: #### C DP, CP #### [address] [place] [address] Commissioning Engineer: Emerson Hall MD #### LIPR #### [address] [address] Commissioning Engineer: Kyle Cowan MD AST [Catalytic activity/Vol] 17 U/L Normal <32 [facility] Comment on above: Performed By: #### C DP, CP #### [address] [place] [address] Commissioning Engineer: Emerson Hall MD #### LIPR #### [address] [address] Commissioning Engineer: Kyle Cowan MD Bilirubin [Mass/Vol] 0.25 mg/dL Low 0.3-1.2 [facility] Comment on above: Performed By: #### C DP, CP #### [facility] [address] [place] [address] Dr. [place], [place] [phone] Commissioning Engineer: Emerson Hall MD #### LIPR #### [facility] [address] [place] [address] Commissioning Engineer: Kyle Cowan MD BUN/CRE Ratio 37 High 9-20 [facility] Comment on above: Performed By: #### C DP, CP #### [facility] [address] [place], [place] [phone] Commissioning Engineer: Emerson Hall MD #### LIPR #### [address] [address] Commissioning Engineer: Kyle Cowan MD Calcium [Mass/Vol] 9.4 mg/dL Normal 8.6-10.4 [facility] Comment on above: Performed By: #### C DP, CP #### [address] [place] [address] Commissioning Engineer: Emerson Hall MD #### LIPR #### [address] [address] Commissioning Engineer: Kyle Cowan MD Chloride [Moles/Vol] 105 mmol/L Normal 98-107 [facility] Comment on above: Performed By: #### C DP, CP #### [facility] [address] [place] [address] [place] [address] Commissioning Engineer: Emerson Hall MD #### LIPR #### [facility] [address] [place] [address] Commissioning Engineer: Kyle Cowan MD CO2 [Moles/Vol] 23 mmol/L Normal 20-31 [facility] Comment on above: Performed By: #### C DP, CP #### [address] [place] [address] Commissioning Engineer: Emerson Hall MD #### LIPR #### [address] [address] Commissioning Engineer: Kyle Cowan MD Creatinine [Mass/Vol] 0.51 mg/dL Normal 0.50-0.90 [place] Comment on above: Performed By: #### C DP, CP #### [facility] [address] [place], [place] 4657983 Commissioning Engineer: Emerson Hall MD #### LIPR #### [address] [address] Commissioning Engineer: Kyle Cowan MD GFR, Amer >60 Normal >60 [facility] Comment on above: Performed By: #### C DP, CP #### [facility] [address] [place] [address] [address]. [place], [place] [phone] Commissioning Engineer: Emerson Hall MD #### LIPR #### [address] [address] Commissioning Engineer: Kyle Cowan MD GFR,non Amer >60 Normal >60 [facility] Comment on above: Performed By: #### C DP, CP #### [address] [place], [place] 680[address]83 Commissioning Engineer: Emerson Hall MD #### LIPR #### [address] [address] Commissioning Engineer: Kyle Cowan MD Glucose [Mass/Vol] 97 mg/dL Normal 70-99 [facility] Comment on above: Performed By: #### C DP, CP #### [facility] [address] [place] [address] Dr[address] [place], [place] [phone] Commissioning Engineer: Emerson Hall MD #### LIPR #### [address] [address] Commissioning Engineer: Kyle Cowan MD Potassium [Moles/Vol] 4.7 mmol/L Normal 3.7-5.3 [place] Comment on above: Performed By: #### C DP, CP #### [address] [place], [place] [phone] Commissioning Engineer: Emerson Hall MD #### LIPR #### [address] [id number] Commissioning Engineer: Kyle Cowan MD Protein [Mass/Vol] 6.6 g/dL Normal 6.4-8.3 [facility] Comment on above: Performed By: #### C DP, CP #### [address] [place], [place] 9459283 Commissioning Engineer: Emerson Hall MD #### LIPR #### [address] [address] Commissioning Engineer: Kyle Cowan MD Sodium [Moles/Vol] 139 mmol/L Normal 135-144 [facility] Comment on above: Performed By: #### C DP, CP #### [address] [place], [place] 3877383 Commissioning Engineer: Emerson Hall MD #### LIPR #### [address] [address] Commissioning Engineer: Kyle Cowan MD Staging: Normal [facility] Comment on above: Result Comment: Stag e 1: Some kidney damage normal GFR Stage 2: Mild kidney damage GFR 60-89 Stage 3: Moderate kidney damage GFR 30-59 Stage 4: Severe kidney damage GFR 15-29 Stage 5: Severe kidney damage GFR <15 ESRD - chronic treatment by dialysis or transplant Performed By: #### C DP, CP #### [address] [place], [place] [phone] Commissioning Engineer: Emerson Hall MD #### LIPR #### [address] [phone] Commissioning Engineer: Kyle Cowan MD Urea nitrogen [Mass/Vol] 19 mg/dL Normal 8-23 [facility] Comment on above: Performed By: #### C DP, CP #### [address] [place], [place] [phone] Commissioning Engineer: Emerson Hall MD #### LIPR #### [address] [place], [place] [id number] Commissioning Engineer: yKle Cowan MD Lipid Profileon 04-28-2021 Cholesterol,VLDL NOT REPORTED Normal 1-30 [facility] Comment on above: Performed By: #### C DP, CP #### [address] [place], [place] 0808683 Commissioning Engineer: Emerson Hall MD #### LIPR #### [address] [place], [place] [phone] Commissioning Engineer: Kyle Cowan MD Cult,Bloodon 10-25-2020 Cult,Blood Specimen Description .BLOOD Special Requests R AC 14ML Culture NO GROWTH 6 DAYS Report Status FINAL 10/25/2020 [facility] Comment on above: Performed By: #### B C #### [address] [place], [place] 5763283 Commissioning Engineer: Emerson Hall MD Cult,Blood Specimen Description .BLOOD Special Requests L HAND 2ML Culture NO GROWTH 6 DAYS Report Status FINAL 10/25/2020 [facility] Comment on above: Performed By: #### B C #### [address] [place] [address] Commissioning Engineer: Emerson Hall MD CBCon 10-20-2020 Erythrocyte distribution width (RBC) [Ratio] 12.3 % Normal 11.8-14.4 [facility] Comment on above: Performed By: #### B C #### [address] [place] [phone] Commissioning Engineer: Emerson Hall MD Hematocrit (Bld) [Volume fraction] 34.0 % Low 36.3-47.1 [facility] Comment on above: Performed By: #### B C #### [address] [place] 5685683 Commissioning Engineer: Emerson Hall MD Hemoglobin (Bld) [Mass/Vol] 11.3 g/dL Low 11.9-15.1 [facility] Comment on above: Performed By: #### B C #### [address] [place], [place] 1214183 Commissioning Engineer: Emerson Hall MD MCH (RBC) [Entitic mass] 31.5 pg Normal 25.2-33.5 [facility] Comment on above: Performed By: #### B C #### [address] [place], [place] 7556983 Commissioning Engineer: Emerson Hall MD MCHC (RBC) [Mass/Vol] 33.2 g/dL Normal 28.4-34.8 [place] Comment on above: Performed By: #### B C #### [address] [place], [place] 3001583 Commissioning Engineer: Emerson Hall MD MCV (RBC) [Entitic vol] 94.7 fL Normal 82.6-102.9 [facility] Comment on above: Performed By: #### B C #### [address] [place], [place] 8013283 Commissioning Engineer: Emerson Hall MD NRBC Automated 0.0 per 100 WBC Normal 0.0 [facility] Comment on above: Performed By: #### B C #### [address] [place], [place] [phone] Commissioning Engineer: Emerson Hall MD Platelet mean volume (Bld) [Entitic vol] 8.9 fL Normal 8.1-13.5 [facility] Comment on above: Performed By: #### B C #### [facility] [address] [place], [place] 8255983 Commissioning Engineer: Emerson Hall MD Platelets (Bld) [#/Vol] 191 10*3/uL Normal 138-453 [facility] Comment on above: Performed By: #### B C #### [facility] [address] [place], [place] 1835683 Commissioning Engineer: Emerson Hall MD RBC (Bld) [#/Vol] 3.59 10*6/uL Low 3.95-5.11 [facility] Comment on above: Performed By: #### B C #### [facility] [address] [place], [place] 9076783 Commissioning Engineer: Emerson Hall MD WBC (Bld) [#/Vol] 8.5 10*3/uL Normal 3.5-11.3 [facility] Comment on above: Performed By: #### B C #### [facility] [address] [place] [address] Commissioning Engineer: Emerson Hall MD CBCOrdered By: Casandra Cerda on 10-20-2020 Hematocrit (Bld) [Volume fraction] 34.0 % Low 36.3 - 47.1 % [facility] Phone: Hemoglobin.gastrointes tinal spec 1 Ql (Stl) 11.3 g/dL Low 11.9 - 15.1 g/dL [facility] Phone: Interpretation and review of laboratory results Abnormal [employer] Phone: MCH (RBC) [Entitic mass] 31.5 pg 25.2 - 33.5 pg [employer] Phone: MCHC (RBC) [Mass/Vol] 33.2 g/dL 28.4 - 34.8 g/dL [employer] Phone: MCV (RBC) [Entitic vol] 94.7 fL 82.6 - 102.9 fL [facility] [employer] Phone: NRBC Automated 0.0 0.0 per 100 WBC [facility] [employer] Phone: Platelet distribution width (Bld) [Ratio] 12.3 % 11.8 - 14.4 % [facility] [employer] Phone: Platelet mean volume (Bld) [Entitic vol] 8.9 fL 8.1 - 13.5 fL [facility] Phone: Platelets (Bld) [#/Vol] 191 10*3/uL [facility] Phone: RBC (Bld) [#/Vol] 3.59 10*6/uL Low 3.95 - 5.1 1 m/uL [facility] Work Phone: WBC (Bld) [#/Vol] 8.5 10*3/uL [facility] [employer] Phone: [facility] Phone: CBC Auto DifferentialOrdered By: Radu Worrell on 10-20-2020 Absolute Eos # 0.27 [facility] Work Phone: Comment on above: CORRECTED ON 10/20 A T 0933: PREVIOUSLY REPORTED 0.54 Absolute Immature Granulocyte 0.00 [facility] Work Phone: Absolute Lymph # 4.86 High [facility] Work Phone: Comment on above: CORRECTED ON 10/20 A T 0933: PREVIOUSLY REPORTED 3.11 Absolute Duval # 1.08 High [employer] [place] Work Phone: Comment on above: CORRECTED ON 10/20 A T 0933: PREVIOUSLY REPORTED 0.54 Basophils (Bld) [#/Vol] 0.14 10*3/uL [facility] Work Phone: Comment on above: CORRECTED ON 10/20 A T 0933: PREVIOUSLY REPORTED 0.00 Basophils/100 WBC (Bld) 1 % 0 - 2 % [employer] Phone: Comment on above: CORRECTED ON 10/20 A T 0933: PREVIOUSLY REPORTED 0 Differential Type NOT REPORTED [employer] Phone: Eosinophils/100 WBC (Bld) 2 % 1 - 4 % [employer] Phone: Comment on above: CORRECTED ON 10/20 A T 0933: PREVIOUSLY REPORTED 4 Hematocrit (Bld) [Volume fraction] 36.4 % 36.3 - 47.1 % [employer] Phone: Hemoglobin.gastrointes tinal spec 1 Ql (Stl) 12.1 g/dL 11.9 - 15.1 g/dL [employer] Phone: Immature granulocytes/100 WBC (Bld) 0 % 0 [employer] Phone: Interpretation and review of laboratory results Abnormal [employer] Phone: Lymphocytes/100 WBC (Bld) 36 % 24 - 44 % [employer] Phone: Comment on above: CORRECTED ON 10/20 A T 0933: PREVIOUSLY REPORTED 23 MCH (RBC) [Entitic mass] 31.0 pg 25.2 - 33.5 pg [employer] Phone: MCHC (RBC) [Mass/Vol] 33.2 g/dL 28.4 - 34.8 g/dL [employer] Phone: MCV (RBC) [Entitic vol] 93.3 fL 82.6 - 102.9 fL [employer] Phone: Monocytes/100 WBC (Bld) 8 % High 1 - 7 % [employer] Phone: Comment on above: CORRECTED ON 10/20 A T 0933: PREVIOUSLY REPORTED 4 Morphology Elliott (Bld) [Interp] Normal [employer] Phone: nRBC 0 0 per 100 WBC [employer] Work Phone: Comment on above: CORRECTED ON 10/20 A T 0933: PREVIOUSLY REPORTED 9 NRBC Automated 0.0 0.0 per 100 WBC [employer] Phone: Platelet distribution width (Bld) [Ratio] 12.3 % 11.8 - 14.4 % [employer] Phone: Platelet Estimate NOT REPORTED [employer] Phone: Platelet mean volume (Bld) [Entitic vol] 9.3 fL 8.1 - 13.5 fL [employer] Phone: Platelets (Bld) [#/Vol] 281 10*3/uL [employer] Phone: RBC (Bld) [#/Vol] 3.90 10*6/uL Low 3.95 - 5.1 1 m/uL [employer] Work Phone: RBC (Bld) [#/Vol] NOT REPORTED [employer] Work Phone: Seg Neutrophils 53 % 36 - 66 % [employer] [facility] [place] Work Phone: Comment on above: CORRECTED ON 10/20 A T 0933: PREVIOUSLY REPORTED 69 Segs Absolute 7.15 [employer] [facility] Work Phone: Comment on above: CORRECTED ON 10/20 A T 0933: PREVIOUSLY REPORTED 9.31 WBC (Bld) [#/Vol] 13.5 10*3/uL High [employer] Work Phone: WBC (Bld) [#/Vol] NOT REPORTED [employer] Work Phone: [employer] Work Phone: CBC with Diffon 10-20-2020 Abs. Basophil 0.14 k/uL Normal 0.0-0.2 [facility] Comment on above: Result Comment: GIOVANA ECTED ON 10/20 AT 0933: PREVIOUSLY REPORTED 0.00 Performed By: #### B C #### [address] [place], [place] [phone] Commissioning Engineer: Emerson Hall MD Abs.Neutrophil (Seg) 7.15 k/uL Normal 1.8-7.7 [facility] Comment on above: Result Comment: GIOVANA ECTED ON 10/20 AT 0933: PREVIOUSLY REPORTED 9.31 Performed By: #### B C #### [address] [place], [place] 1876783 Commissioning Engineer: Emerson Hall MD Basophils/100 WBC (Bld) 1 % Normal 0-2 [facility] Comment on above: Result Comment: GIOVANA ECTED ON 10/20 AT 0933: PREVIOUSLY REPORTED 0 Performed By: #### B C #### [address] [place], [place] [phone] Commissioning Engineer: Emerson Hall MD Eosinophils (Bld) [#/Vol] 0.27 10*3/uL Normal 0.0-0.4 [facility] Comment on above: Result Comment: GIOVANA ECTED ON 10/20 AT 0933: PREVIOUSLY REPORTED 0.54 Performed By: #### B C #### [address] [place], [place] 2400783 Commissioning Engineer: Emerson Hall MD Eosinophils/100 WBC (Bld) 2 % Normal 1-4 [facility] Comment on above: Result Comment: GIOVANA ECTED ON 10/20 AT 932: PREVIOUSLY REPORTED 4 Performed By: #### B C #### [address] [place] [address] Commissioning Engineer: Emerson Hall MD Lymphocytes (Bld) [#/Vol] 4.86 10*3/uL High 1.0-4.8 [facility] Comment on above: Result Comment: GIOVANA ECTED ON 10/20 AT 0933: PREVIOUSLY REPORTED 3.11 Performed By: #### B C #### [facility] [address] [place] [phone] Commissioning Engineer: Emerson Hall MD Lymphocytes/100 WBC (Bld) 36 % Normal 24-44 [facility] Comment on above: Result Comment: GIOVANA ECTED ON 10/20 AT 0933: PREVIOUSLY REPORTED 23 Performed By: #### B C #### [facility] [address] [place] [phone] Commissioning Engineer: Emerson Hall MD Monocytes (Bld) [#/Vol] 1.08 10*3/uL High 0.1-0.8 [facility] Comment on above: Result Comment: GIOVANA ECTED ON 10/20 AT 0933: PREVIOUSLY REPORTED 0.54 Performed By: #### B C #### [facility] [address] [place] [address] Dr. [place] [phone] Commissioning Engineer: Emerson Hall MD Monocytes/100 WBC (Bld) 8 % High 1-7 [facility] Comment on above: Result Comment: GIOVANA ECTED ON 10/20 AT 0933: PREVIOUSLY REPORTED 4 Performed By: #### B C #### [facility] [address] [place] [address] Dr. [place] 7882483 Commissioning Engineer: Emerson Hall MD Neutrophil (Seg) 53 % Normal 36-66 [facility] Comment on above: Result Comment: GIOVANA ECTED ON 10/20 AT 0933: PREVIOUSLY REPORTED 69 Performed By: #### B C #### [facility] [address] [place] 7012083 Commissioning Engineer: Emerson Hall MD Nucleated RBC'S 0 per 100 WBC Normal 0 [facility] Comment on above: Result Comment: GIOVANA ECTED ON 10/20 AT 0933: PREVIOUSLY REPORTED 9 Performed By: #### B C #### [facility] [address] [place] [phone] Commissioning Engineer: Emerson Hall MD Comp Metabolic Pr/rfx MGon 0 10-20-2020 (cont.) Normal [facility] Comment on above: Result Comment: Aver age GFR for 70 or more years old: 75 mL/min/1.73sq m Chronic Kidney Disease: <60 mL/min/1.73sq m Kidney failure: <15 mL/min/1.73sq m eGFR calculated using average adult body mass. Additional eGFR calculator available at: http://www.[employer] [place]/multiple_crcl_2011.htm Performed By: #### B C #### [facility] [address] [place] [phone] Commissioning Engineer: Emerson Hall MD Albumin [Mass/Vol] 3.1 g/dL Low 3.5-5.2 [facility] Comment on above: Performed By: #### B C #### [facility] [address] [place] [address] Dr. [place] 2120183 Commissioning Engineer: Emerson Hall MD Albumin/Glob Ratio 1.2 Normal 1.0-2.5 [facility] Comment on above: Performed By: #### B C #### [address] [place] 8104983 Commissioning Engineer: Emerson Hall MD Alkaline Phos 64 U/L Normal 35-104 [facility] Comment on above: Performed By: #### B C #### [facility] [address] [place] [address] Commissioning Engineer: Emerson Hall MD ALT [Catalytic activity/Vol] 7 U/L Normal 5-33 [facility] Comment on above: Performed By: #### B C #### [facility] [address] [place] [address] Commissioning Engineer: Emerson Hall MD Anion gap [Moles/Vol] 10 mmol/L Normal 9-17 [place] Comment on above: Performed By: #### B C #### [facility] [address] [place] [phone] Commissioning Engineer: Emerson Hall MD AST [Catalytic activity/Vol] 13 U/L Normal <32 [facility] Comment on above: Performed By: #### B C #### [facility] [address] [place], [place] 1366583 Commissioning Engineer: Emerson Hall MD Bilirubin [Mass/Vol] 0.17 mg/dL Low 0.3-1.2 [facility] Comment on above: Performed By: #### B C #### [facility] [address] [place], [place] 0473183 Commissioning Engineer: Emerson Hall MD BUN/CRE Ratio 20 Normal 9-20 [facility] Comment on above: Performed By: #### B C #### [facility] [address] [place] [address] Commissioning Engineer: Emerson Hall MD Calcium [Mass/Vol] 8.6 mg/dL Normal 8.6-10.4 [facility] Comment on above: Performed By: #### B C #### [facility] [address] [place], [place] 5509183 Commissioning Engineer: Emerson Hall MD Chloride [Moles/Vol] 103 mmol/L Normal 98-107 [facility] Comment on above: Performed By: #### B C #### [facility] [address] [place], [place] 8835083 Commissioning Engineer: Emerson Hall MD CO2 [Moles/Vol] 22 mmol/L Normal 20-31 [facility] Comment on above: Performed By: #### B C #### [facility] [address] [place] [address] Commissioning Engineer: Emerson Hall MD Creatinine [Mass/Vol] 0.61 mg/dL Normal 0.50-0.90 [place] Comment on above: Performed By: #### B C #### [facility] [address] [place], [place] 6964883 Commissioning Engineer: Emerson Hall MD GFR, Amer >60 Normal >60 [facility] Comment on above: Performed By: #### B C #### [facility] [address] [place], [place] 3027983 Commissioning Engineer: Emerson Hall MD GFR,non Amer >60 Normal >60 [facility] Comment on above: Performed By: #### B C #### [facility] [address] [place], [place] 5962183 Commissioning Engineer: Emerson Hall MD Glucose [Mass/Vol] 91 mg/dL Normal 70-99 [facility] Comment on above: Performed By: #### B C #### [facility] [address] [place], [place] 2670683 Commissioning Engineer: Emerson Hall MD Potassium [Moles/Vol] 4.5 mmol/L Normal 3.7-5.3 [place] Comment on above: Performed By: #### B C #### [facility] [address] [place] [address] Dr. [place], [place] 0490583 Commissioning Engineer: Emerson Hall MD Protein [Mass/Vol] 5.6 g/dL Low 6.4-8.3 [facility] Comment on above: Performed By: #### B C #### [facility] [address] [place], [place] 7723883 Commissioning Engineer: Emerson Hall MD Sodium [Moles/Vol] 135 mmol/L Normal 135-144 [facility] Comment on above: Performed By: #### B C #### [facility] [address] [place], [place] 1113883 Commissioning Engineer: Emerson Hall MD Staging: Normal [facility] Comment on above: Result Comment: Stag e 1: Some kidney damage normal GFR Stage 2: Mild kidney damage GFR 60-89 Stage 3: Moderate kidney damage GFR 30-59 Stage 4: Severe kidney damage GFR 15-29 Stage 5: Severe kidney damage GFR <15 ESRD - chronic treatment by dialysis or transplant Performed By: #### B C #### [facility] [address] [place] [address] Commissioning Engineer: Emerson Hall MD Urea nitrogen [Mass/Vol] 12 mg/dL Normal 8-23 [facility] Comment on above: Performed By: #### B C #### [facility] [address] [place] [address] Commissioning Engineer: Emerson Hall MD Comprehensive Metabolic Pane l w/ Reflex to MGOrdered By: Casandra Cerda on 10-20-2020 Albumin [Mass/Vol] 3.1 g/dL Low 3.5 - 5.2 g/dL [employer] Phone: Albumin/Globulin [Mass ratio] 1.2 {ratio} [employer] Phone: ALP (Bld) [Catalytic activity/Vol] 64 U/L 35 - 104 U/L [employer] Phone: ALT [Catalytic activity/Vol] 7 U/L 5 - 33 U/L [facility] Phone: Anion gap [Moles/Vol] 10 mmol/L 9 - 17 mmol/L [employer] Phone: AST [Catalytic activity/Vol] 13 U/L <32 [employer] Phone: Bilirubin [Mass/Vol] 0.17 mg/dL Low 0.3 - 1 .2 mg/dL [employer] Phone: Calcium [Mass/Vol] 8.6 mg/dL 8.6 - 10. 4 mg/dL [employer] Phone: Chloride [Moles/Vol] 103 mmol/L 98 - 10 7 mmol/L [employer] Phone: CO2 [Moles/Vol] 22 mmol/L 20 - 31 mmol/L [employer] Phone: Creatinine [Mass/Vol] 0.61 mg/dL 0.50 - 0.90 mg/dL [employer] Phone: Free PSA/Total PSA [Mass fraction] 5.6 g/dL Low 6.4 - 8.3 g/dL [employer] Phone: GFR >60 >60 mL/min [employer] Phone: GFR Non- >60 >60 mL/min [employer] Phone: Glucose [Mass/Vol] 91 mg/dL 70 - 99 mg/dL [employer] Phone: Interpretation and review of laboratory results Abnormal [employer] Phone: Potassium [Moles/Vol] 4.5 mmol/L 3.7 - 5.3 mmol/L [employer] Phone: Sodium [Moles/Vol] 135 mmol/L 135 - 144 mmol/L [facility] Phone: Urea nitrogen (BldV) [Mass/Vol] 12 mg/dL 8 - 23 mg/dL [employer] Phone: Urea nitrogen/Creatinine (Bld) [Mass ratio] 20 [employer] Phone: [employer] Phone: Keppraon 10-20-2020 KEPP 19 ug/mL Normal [facility] Comment on above: Result Comment: A [...] known. Performed By: #### K EPPRA #### [facility] [id number] Commissioning Engineer: Kyle Cowan MD Laboratory - Chemistry and C hemistry - challengeOrdered By: Casandra Cerda on 10-20-2020 GFR/1.73 sq M.predicted MDRD (S/P/Bld) [Vol rate/Area] [employer] Phone: Comment on above: Average GFR for 70 o r more years old: 75 mL/min/1.73sq m Chronic Kidney Disease: <60 mL/min/1.73sq m Kidney failure: <15 mL/min/1.73sq m eGFR calculated using average adult body mass. Additional eGFR calculator available at: http://www.[employer] [place]/multiple_crcl_2012.htm Stage 1: Some kidney damage normal GFR Stage 2: Mild kidney damage GFR 60-89 Stage 3: Moderate kidney damage GFR 30-59 Stage 4: Severe kidney damage GFR 15-29 Stage 5: Severe kidney damage GFR <15 ESRD - chronic treatment by dialysis or transplant Levetiracetam LevelOrdered B y: Casandra Cerda on 10-20-2020 Levetiracetam Lvl 19 ug/mL [email or web address] Work Phone: Comment on above: A reference [...] serum concentrations and toxicity is not known. [employer] Phone: Blood Gas, VenousOrdered By: Radu Worrell on 10-19-2020 Arthur Test NOT REPORTED [employer] Phone: Carboxyhemoglobin NOT REPORTED 0.0 - 5.0 % [facility] Work Phone: Comment on above: FIO2 NOT REPORTED [facility] [employer] Work Phone: HCO3 (Bld) [Moles/Vol] 28 mmol/L 24.0 - 30.0 mmol/L [facility] [employer] Work Phone: Interpretation and review of laboratory results Abnormal [facility] [employer] Work Phone: Methemoglobin NOT REPORTED 0.0 - 1.9 % [facility] Work Phone: Mode NOT REPORTED [facility] [employer] Work Phone: Negative Base Excess, Moncho NOT REPORTED 0.0 - 2.0 mmol/L [facility] [employer] Work Phone: NOTIFICATION NOT REPORTED [facility] Work Phone: NOTIFICATION TIME NOT REPORTED [facility] [employer] Work Phone: O2 Device/Flow/% NOT REPORTED [facility] [employer] Work Phone: Oxygen saturation in Blood 39.6 % Low 60.0 - 85.0 % [facility] [employer] Work Phone: Oxyhemoglobin NOT REPORTED 95.0 - 98.0 % [facility] [employer] Work Phone: pCO2, Moncho 52.9 [facility] [employer] Work Phone: pCO2, Moncho, Temp Adj NOT REPORTED [facility] [employer] Work Phone: Peep/Cpap NOT REPORTED [facility] [employer] Work Phone: pH, Moncho 7.342 [facility] [employer] Work Phone: pH, Moncho, Temp Adj NOT REPORTED [facility] [employer] Work Phone: pO2, Moncho 24.4 Low [facility] [employer] Work Phone: pO2, Moncho, Temp Adj NOT REPORTED [facility] [employer] Work Phone: Positive Base Excess, Moncho 1.2 mmol/L 0.0 - 2.0 mmol/L [facility] [employer] Work Phone: PSV NOT REPORTED [employer] Work Phone: Pt Temp 37.0 [employer] Work Phone: Pt. Position NOT REPORTED [employer] Work Phone: Respiratory Rate NOT REPORTED [employer] Phone: Sample Site NOT REPORTED [employer] Work Phone: Set Rate NOT REPORTED [employer] Phone: Text for Respiratory DRAWN PER ED RN [employer] Phone: Total Hb NOT REPORTED 12.0 - 16.0 g/dl [employer] Phone: Total Rate NOT REPORTED [employer] Phone: VT NOT REPORTED [employer] Phone: [employer] Phone: Brain Natri. Peptideon 10-19 BNP Interpretation Pro-BNP Reference Range: Normal [facility] Comment on above: Result Comment: Rule Out: <300 Horne Zone: Age <50 300-450 Age 50-75 300-900 Age >75 300-1800 Usually represents mild to moderate HF but other cardiopulmonary causes cannot be ruled out. Rule In: Age <50 >450 Age 50-75 >900 Age >75 >1800 Performed By: #### B C #### [facility] [address] [place] [address] [place] [address] Commissioning Engineer: Emerson Hall MD Natriuretic peptide B (Bld) [Mass/Vol] 158 pg/mL Normal <300 [facility] Comment on above: Result Comment: Pro- BNP results cannot be compared to BNP results. Performed By: #### B C #### [facility] [address] [place] [address] Commissioning Engineer: Emerson Hall MD Brain Natriuretic PeptideOrd ered By: Radu Worrell on 10-19-2020 BNP Interpretation Pro-BNP Reference Range: [employer] Phone: Comment on above: Rule Out: <300 [place] Zone: Age <50 300-450 Age 50-75 300-900 Age >75 300-1800 Usually represents mild to moderate HF but other cardiopulmonary causes cannot be ruled out. Rule In: Age <50 >450 Age 50-75 >900 Age >75 >1800 Natriuretic peptide B (Bld) [Mass/Vol] 158 pg/mL <300 [facility] Comment on above: Pro-BNP results liana ot be compared to BNP results. CBC with Diffon 10-19-2020 Abs.Imm.Granulocyte 0.00 k/uL Normal 0.00-0.30 [facility] Comment on above: Performed By: #### B C #### [facility] [address] [place] [address] [address] [place], [place] [id number] Commissioning Engineer: Emerson Hall MD Immature granulocytes/100 WBC (Bld) 0 % Normal 0 [facility] Comment on above: Performed By: #### B C #### [facility] [address] [place] [address] [place] [address] Commissioning Engineer: Emerson Hall MD Morphology Elliott (Bld) [Interp] Normal Normal [facility] Comment on above: Performed By: #### B C #### [address] [place] [address] Commissioning Engineer: Emerson Hall MD Erythrocyte distribution width (RBC) [Ratio] 12.3 % Normal 11.8-14.4 [facility] Comment on above: Performed By: #### B C #### [facility] [address] [place] [address] Dr[address] [place] [id number] Commissioning Engineer: Emerson Hall MD Hematocrit (Bld) [Volume fraction] 36.4 % Normal 36.3-47.1 [facility] Comment on above: Performed By: #### B C #### [facility] [address] [place] [address] [address]. [place] [id number] Commissioning Engineer: Emerson Hall MD Hemoglobin (Bld) [Mass/Vol] 12.1 g/dL Normal 11.9-15.1 [facility] Comment on above: Performed By: #### B C #### [address] [place], [place] [id number] Commissioning Engineer: Emerson Hall MD MCH (RBC) [Entitic mass] 31.0 pg Normal 25.2-33.5 [facility] Comment on above: Performed By: #### B C #### [address] [place], [place] 7111783 Commissioning Engineer: Emerson Hall MD MCHC (RBC) [Mass/Vol] 33.2 g/dL Normal 28.4-34.8 [place] Comment on above: Performed By: #### B C #### [address] [place], [place] [id number] Commissioning Engineer: Emerson Hall MD MCV (RBC) [Entitic vol] 93.3 fL Normal 82.6-102.9 [facility] Comment on above: Performed By: #### B C #### [address] [place], [place] 3210483 Commissioning Engineer: Emerson Hall MD NRBC Automated 0.0 per 100 WBC Normal 0.0 [facility] Comment on above: Performed By: #### B C #### [address] [place], [place] 7066783 Commissioning Engineer: Emerson Hall MD Platelet mean volume (Bld) [Entitic vol] 9.3 fL Normal 8.1-13.5 [facility] Comment on above: Performed By: #### B C #### [address] [place], [place] 0791883 Commissioning Engineer: Emerson Hall MD Platelets (Bld) [#/Vol] 281 10*3/uL Normal 138-453 [facility] Comment on above: Performed By: #### B C #### [facility] [address] [place], [place] 2651883 Commissioning Engineer: Emerson Hall MD RBC (Bld) [#/Vol] 3.90 10*6/uL Low 3.95-5.11 [facility] Comment on above: Performed By: #### B C #### [facility] [address] [place], [place] 9179783 Commissioning Engineer: Emerson Hall MD WBC (Bld) [#/Vol] 13.5 10*3/uL High 3.5-11.3 [facility] Comment on above: Performed By: #### B C #### [address] [place] [address] Commissioning Engineer: Emerson Hall MD Auto Diff Performed NOT REPORTED Normal [place] Comment on above: Performed By: #### B C #### [facility] [address] [place] [address] Commissioning Engineer: Emerson Hall MD Platelet Estimate NOT REPORTED Normal [facility] Comment on above: Performed By: #### B C #### [facility] [address] [place] [address] [place] [address] Commissioning Engineer: Emerson Hall MD RBC morphology finding Nom (d) NOT REPORTED Normal [facility] Comment on above: Performed By: #### B C #### [facility] [address] [place] [address] [place] [address] Commissioning Engineer: Emerson Hall MD WBC Morphology NOT REPORTED Normal [facility] Comment on above: Performed By: #### B C #### [facility] [address] [place], [place] [id number] Commissioning Engineer: Emerson Hall MD CT HEAD WO CONTRASTon [...] Amina Lamas DO 10/19/20 Final result Normal [facility] CT Head WO ContrastOrdered B y: Izzy Teran on 10-19-2020 No acute intracrania l abnormality. 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 Critical results were called by Dr. Amina Lamas to ANN Dyson on 10/19/2020 at 18:14. [facility] Work Phone: EXAMINATION: CT OF T HE [...] of the visualized skull or soft tissues. [employer] Phone: Romero, [facility] Incoming Radiant Results From [employer] - 10/19/2020 6:20 PM EDT EXAMINATION: CT [...] to ANN Dyson on 10/19/2020 at 18:14. [facility] Work Phone: [facility] Work Phone: Comp Metabolic Pr/rfx MGon 0 10-19-2020 (cont.) Normal [facility] Comment on above: Result Comment: Aver age GFR for 70 or more years old: 75 mL/min/1.73sq m Chronic Kidney Disease: <60 mL/min/1.73sq m Kidney failure: <15 mL/min/1.73sq m eGFR calculated using average adult body mass. Additional eGFR calculator available at: http://www.[employer] [place]/multiple_crcl_2012.htm Performed By: #### B C #### [facility] [address] [place] [address] [place] [address] Commissioning Engineer: Emerson Hall MD Albumin [Mass/Vol] 3.7 g/dL Normal 3.5-5.2 [facility] Comment on above: Performed By: #### B C #### [facility] [address] [place] [address] Commissioning Engineer: Emerson Hall MD Albumin/Glob Ratio 1.3 Normal 1.0-2.5 [facility] Comment on above: Performed By: #### B C #### [address] [place] [address] Commissioning Engineer: Emerson Hall MD Alkaline Phos 69 U/L Normal 35-104 [facility] Comment on above: Performed By: #### B C #### [facility] [address] [place] [phone] Commissioning Engineer: Emerson Hall MD ALT [Catalytic activity/Vol] 8 U/L Normal 5-33 [facility] Comment on above: Performed By: #### B C #### [facility] [address] [place], [place] [phone] Commissioning Engineer: Emerson Hall MD Anion gap [Moles/Vol] 13 mmol/L Normal 9-17 [place] Comment on above: Performed By: #### B C #### [facility] [address] [place] [phone] Commissioning Engineer: Emerson Hall MD AST [Catalytic activity/Vol] 16 U/L Normal <32 [facility] Comment on above: Performed By: #### B C #### [facility] [address] [place], [place] 8493583 Commissioning Engineer: Emerson Hall MD Bilirubin [Mass/Vol] 0.30 mg/dL Normal 0.3-1.2 [facility] Comment on above: Performed By: #### B C #### [facility] [address] [place], [place] 6463883 Commissioning Engineer: Emerson Hall MD BUN/CRE Ratio 18 Normal 9-20 [facility] Comment on above: Performed By: #### B C #### [facility] [address] [place], [place] 4010183 Commissioning Engineer: Emerson Hall MD Calcium [Mass/Vol] 9.1 mg/dL Normal 8.6-10.4 [facility] Comment on above: Performed By: #### B C #### [facility] [address] [place], [place] 2629983 Commissioning Engineer: Emerson Hall MD Chloride [Moles/Vol] 101 mmol/L Normal 98-107 [facility] Comment on above: Performed By: #### B C #### [facility] [address] [place], [place] 4932083 Commissioning Engineer: Emerson Hall MD CO2 [Moles/Vol] 23 mmol/L Normal 20-31 [facility] Comment on above: Performed By: #### B C #### [facility] [address] [place], [place] 9367683 Commissioning Engineer: Emerson Hall MD Creatinine [Mass/Vol] 0.91 mg/dL High 0.50-0.90 [place] Comment on above: Performed By: #### B C #### [facility] [address] [place], [place] 1534583 Commissioning Engineer: Emerson Hall MD GFR, Amer >60 Normal >60 [facility] Comment on above: Performed By: #### B C #### [facility] [address] [place], [place] 9830083 Commissioning Engineer: Emerson Hall MD GFR,non Amer 59 mL/min Low >60 [facility] Comment on above: Performed By: #### B C #### [facility] [address] [place], [place] 9295683 Commissioning Engineer: Emerson Hall MD Glucose [Mass/Vol] 137 mg/dL High 70-99 [facility] Comment on above: Performed By: #### B C #### [facility] [address] [place], [place] 1220383 Commissioning Engineer: Emerson Hall MD Potassium [Moles/Vol] 3.9 mmol/L Normal 3.7-5.3 [place] Comment on above: Performed By: #### B C #### [facility] [address] [place], [place] 1778983 Commissioning Engineer: Emerson Hall MD Protein [Mass/Vol] 6.6 g/dL Normal 6.4-8.3 [facility] Comment on above: Performed By: #### B C #### [facility] [address] [place] [address] Commissioning Engineer: Emerson Hall MD Sodium [Moles/Vol] 137 mmol/L Normal 135-144 [facility] Comment on above: Performed By: #### B C #### [facility] [address] [place] [address] Commissioning Engineer: Emerson Hall MD Staging: Normal [facility] Comment on above: Result Comment: Stag e 1: Some kidney damage normal GFR Stage 2: Mild kidney damage GFR 60-89 Stage 3: Moderate kidney damage GFR 30-59 Stage 4: Severe kidney damage GFR 15-29 Stage 5: Severe kidney damage GFR <15 ESRD - chronic treatment by dialysis or transplant Performed By: #### B C #### [facility] [address] [place] [address] Commissioning Engineer: Emerson Hall MD Urea nitrogen [Mass/Vol] 16 mg/dL Normal 8-23 [facility] Comment on above: Performed By: #### B C #### [facility] [address] [place] [address] Commissioning Engineer: Emerson Hall MD Comprehensive Metabolic Pane l w/ Reflex to MGOrdered By: Radu Worrell on 10-19-2020 Albumin [Mass/Vol] 3.7 g/dL 3.5 - 5.2 g/dL [facility] Phone: Albumin/Globulin [Mass ratio] 1.3 {ratio} [facility] [employer] Phone: ALP (Bld) [Catalytic activity/Vol] 69 U/L 35 - 104 U/L [employer] Phone: ALT [Catalytic activity/Vol] 8 U/L 5 - 33 U/L [employer] Phone: Anion gap [Moles/Vol] 13 mmol/L 9 - 17 mmol/L [employer] Phone: AST [Catalytic activity/Vol] 16 U/L <32 [employer] Phone: Bilirubin [Mass/Vol] 0.30 mg/dL 0.3 - 1 .2 mg/dL [employer] Phone: Calcium [Mass/Vol] 9.1 mg/dL 8.6 - 10. 4 mg/dL [employer] Phone: Chloride [Moles/Vol] 101 mmol/L 98 - 10 7 mmol/L [employer] Phone: CO2 [Moles/Vol] 23 mmol/L 20 - 31 mmol/L [employer] Phone: Creatinine [Mass/Vol] 0.91 mg/dL High 0.50 - 0.90 mg/dL [employer] Phone: Free PSA/Total PSA [Mass fraction] 6.6 g/dL 6.4 - 8.3 g/dL [employer] Phone: GFR >60 >60 mL/min [employer] Phone: GFR Non- 59 mL/min Low >60 [employer] Phone: Glucose [Mass/Vol] 137 mg/dL High 70 - 99 mg/dL [employer] Phone: Interpretation and review of laboratory results Abnormal [employer] Phone: Potassium [Moles/Vol] 3.9 mmol/L 3.7 - 5.3 mmol/L [employer] Phone: Sodium [Moles/Vol] 137 mmol/L 135 - 144 mmol/L [employer] Phone: Urea nitrogen (BldV) [Mass/Vol] 16 mg/dL 8 - 23 mg/dL [employer] Phone: Urea nitrogen/Creatinine (Bld) [Mass ratio] 18 [employer] Phone: EKG 12 LeadOrdered By: Katy Worrell on 10-19-2020 Atrial Rate 50 BPM [employer] Work Phone: P [place] 23 degrees [employer] Work Phone: P-R Interval 152 ms [employer] Phone: Q-T Interval 480 ms [employer] Phone: QRS Duration 90 ms [employer] Work Phone: QTc Calculation (Bazett) 437 ms [employer] Work Phone: R [place]uma 7 degrees [employer] Phone: T [place] 42 degrees [employer] Phone: Ventricular Rate 50 BPM [employer] Work Phone: Sinus bradycardia Possible Anterior infarct , age undetermined Abnormal ECG When compared with ECG of 03-AUG-2020 09:21, No significant change was found Confirmed by JOSE RAMOS ([id number]) on 10/19/2020 10:36:19 PM [employer] Work Phone: Romero, [employer] Incoming E kg Results From [employer] - 10/19/2020 10:36 PM EDT Sinus bradycardia Possible Anterior infarct , age undetermined Abnormal ECG When compared with ECG of 03-AUG-2020 09:21, No significant change was found Confirmed by JOSE RAMOS ([id number]) on 10/19/2020 10:36:19 PM [employer] Work Phone: [employer] Phone: Laboratory - Chemistry and C hemistry - challengeOrdered By: Radu Worrell on 10-19-2020 GFR/1.73 sq M.predicted MDRD (S/P/Bld) [Vol rate/Area] [employer] Phone: Comment on above: Average GFR for 70 o r more years old: 75 mL/min/1.73sq m Chronic Kidney Disease: <60 mL/min/1.73sq m Kidney failure: <15 mL/min/1.73sq m eGFR calculated using average adult body mass. Additional eGFR calculator available at: http://www.[employer] [place]/multiple_crcl_2012.htm Stage 1: Some kidney damage normal GFR Stage 2: Mild kidney damage GFR 60-89 Stage 3: Moderate kidney damage GFR 30-59 Stage 4: Severe kidney damage GFR 15-29 Stage 5: Severe kidney damage GFR <15 ESRD - chronic treatment by dialysis or transplant Lactic Acidon 10-19-2020 Lactate [Moles/Vol] 1.1 mmol/L Normal 0.5-2.2 [facility] Comment on above: Performed By: #### B C #### [facility] [address] [place] [address] Commissioning Engineer: Emerson Hall MD Lactic AcidOrdered By: Katy Worrell on 10-19-2020 Lactate [Moles/Vol] 1.1 mmol/L 0.5 - 2. 2 mmol/L [facility] Work Phone: [facility] Work Phone: Lipaseon 10-19-2020 Lipase [Catalytic activity/Vol] 21 U/L Normal 13-60 [facility] Comment on above: Performed By: #### B C #### [facility] [address] [place] [address] Commissioning Engineer: Emerson Hall MD LipaseOrdered By: Radu howard on 10-19-2020 Lipase [Catalytic activity/Vol] 21 U/L 13 - 60 U/L [facility] [employer] Phone: Microscopic UrinalysisOrdere d By: Radu Worrell on 10-19-2020 - [facility] [employer] Phone: Amorphous, UA NOT REPORTED None [facility] Work Phone: Bacteria, UA TRACE Abnormal None [facility] Work Phone: Casts UA NOT REPORTED /LPF [facility] [employer] Work Phone: Crystals, UA NOT REPORTED None /HPF [facility] Work Phone: Epithelial Cells UA 0 TO 2 [facility] Work Phone: Interpretation and review of laboratory results Abnormal [facility] [employer] Work Phone: Mucus, UA 1+ Abnormal None [facility] Work Phone: Other Observations UA NOT REPORTED NOT REQ. [facility] Work Phone: RBC, UA 0 TO 2 [facility] [employer] Work Phone: Renal Epithelial, UA NOT REPORTED 0 /HPF [facility] [employer] [employer] Work Phone: Trichomonas, UA NOT REPORTED None [facility] Work Phone: WBC, UA 0 TO 2 [facility] [employer] Work Phone: Yeast, UA NOT REPORTED None [facility] [employer] Work Phone: [facility] [employer] Work Phone: No Panel InformationOrdered By: Raud Worrell on 10-19-2020 [facility] [employer] [employer] Work Phone: Troponinon 10-19-2020 Troponin, High Sens 10 ng/L Normal 0-14 [facility] Comment on above: Result Comment: High Sensitivity Troponin values cannot be compared with other Troponin methodologies. Patients with high levels of Biotin oral intake (i.e >5mg/day) may have falsely decreased Troponin levels. Samples collected within 8 hours of biotin intake may require additional information for diagnosis. Performed By: #### B C #### [facility] [address] [place] [address] Commissioning Engineer: Emerson Hall MD Troponin Interp. NOT REPORTED Normal [facility] Comment on above: Performed By: #### B C #### [facility] [address] [place] [address] Commissioning Engineer: Emerson Hall MD Troponin T NOT REPORTED Normal <0.03 [facility] Comment on above: Performed By: #### B C #### [facility] [address] [place] [address] Commissioning Engineer: Emerson Hall MD TroponinOrdered By: Radu Worrell on 10-19-2020 Troponin Interp NOT REPORTED [facility] [employer] Work Phone: Troponin T NOT REPORTED <0.03 ng/mL [facility] Work Phone: Troponin, High Sensitivity 10 ng/L 0 - 14 ng/L [facility] Work Phone: Comment on above: High Sensitivity Troponin values cannot be compared with other Troponin methodologies. Patients with high levels of Biotin oral intake (i.e >5mg/day) may have falsely decreased Troponin levels. Samples collected within 8 hours of biotin intake may require additional information for diagnosis. UA w/Reflex Cultureon 2020 Bilirubin, SemiQt,Ur SMALL Abnormal NEG [facility] Comment on above: Performed By: #### U AX UMICAO #### [facility] [address] [place] [address] Commissioning Engineer: Emerson Hall MD Blood, Urine Negative Normal NEG [facility] Comment on above: Performed By: #### U AX, UMICAO #### [facility] [address] [place] [address] Commissioning Engineer: Emerson Hall MD Clarity (U) CLEAR Normal CLEAR [facility] Comment on above: Performed By: #### U AX, UMICAO #### [facility] [address] [place] [address] Commissioning Engineer: Emerson Hall MD Color (U) YELLOW Normal YEL [facility] Comment on above: Performed By: #### U AX, UMICAO #### [facility] [address] [place], [place] 2454983 Commissioning Engineer: Emerson Hall MD Glucose Ql (U) Negative Normal NEG [facility] Comment on above: Performed By: #### U AX, UMICAO #### [facility] [address] [place] [address] Dr[address] [place], [place] 1598083 Commissioning Engineer: Emerson Hall MD Ketones Ql (U) 2+ Abnormal NEG [facility] Comment on above: Performed By: #### U AX, UMICAO #### [facility] [address] [place] [address] Dr. [place], [place] 2088083 Commissioning Engineer: Emerson Hall MD Leukocyte esterase Test strip Ql (U) Negative Normal NEG [facility] Comment on above: Performed By: #### U AX, UMICAO #### [address] [place], [place] 1597183 Commissioning Engineer: Emerson Hall MD Nitrite,Ur Negative Normal NEG [facility] Comment on above: Performed By: #### U AX, UMICAO #### [address] [place], [place] 0561083 Commissioning Engineer: Emerson Hall MD PH,Ur 5.0 Normal 5.0-9.0 [facility] Comment on above: Performed By: #### U AX, UMICAO #### [facility] [address] [place] [address] Dr. [place], [place] 7281583 Commissioning Engineer: Emerson Hall MD Protein Ql (U) TRACE Abnormal NEG [facility] Comment on above: Performed By: #### U AX, UMICAO #### [facility] [address] [place] [address] Dr. [place], [place] 0770183 Commissioning Engineer: Emerson Hall MD Spec. [place],Ur >1.030 High 1.010-1.020 [facility] Comment on above: Performed By: #### U AX, UMICAO #### [facility] [address] [place] [address] [place] [address] Commissioning Engineer: Emerson Hall MD Urobilinogen,Ur Normal Normal NORM [facility] Comment on above: Performed By: #### U AX, UMICAO #### [facility] [address] [place] [address] Commissioning Engineer: Emerson Hall MD Comment NOT REPORTED Normal [facility] Comment on above: Performed By: #### U AX, UMICAO #### [facility] [address] [place] [address] Commissioning Engineer: Emerson Hall MD Urinalysis Reflex to Culture Ordered By: Radu Worrell on 10-19-2020 Bilirubin Urine SMALL Abnormal NEGATIVE [facility] Work Phone: Color, UA YELLOW YELLOW [facility] Work Phone: Glucose, Ur Negative NEGATIVE [facility] Work Phone: Interpretation and review of laboratory results Abnormal [facility] Work Phone: Ketones Ql (U) 2+ Abnormal NEGATIVE [facility] Work Phone: Leukocyte esterase Test strip Ql (U) Negative NEGATIVE [facility] Phone: Nitrite, Urine Negative NEGATIVE [facility] Work Phone: pH, UA 5.0 [facility] Work Phone: Protein, UA TRACE Abnormal NEGATIVE [facility] Work Phone: Specific [place], UA >1.030 High [facility] [employer] Work Phone: Turbidity UA CLEAR CLEAR [facility] Work Phone: Urinalysis Comments NOT REPORTED [facility] [employer] Work Phone: Urine Hgb Negative NEGATIVE [facility] Work Phone: Urobilinogen, Urine Normal Normal [facility] Work Phone: [facility] Work Phone: Urinalysis,Microon 1 ----- Normal [facility] Comment on above: Performed By: #### U AX, UMICAO #### [facility] [address] [place], [place] 2682083 Commissioning Engineer: Emerson Hall MD Bacteria TRACE Abnormal [facility] Comment on above: Performed By: #### U AX, UMICAO #### [facility] [address] [place] [address] Commissioning Engineer: Emerson Hall MD Epithelial cells LM Ql (Urine sed) 0 TO 2 Normal 0-25 [facility] Comment on above: Performed By: #### U AX, UMICAO #### [facility] [address] [place], [place] 6383483 Commissioning Engineer: Emerson Hall MD Mucus Strands 1+ Abnormal [facility] Comment on above: Performed By: #### U AX, UMICAO #### [facility] [address] [place] [address] Commissioning Engineer: Emerson Hall MD Urine RBC's 0 TO 2 Normal 0-2 [facility] Comment on above: Performed By: #### U AX, UMICAO #### [facility] [address] [place] [address] Commissioning Engineer: Emerson Hall MD Urine WBC's 0 TO 2 Normal 0-5 [facility] Comment on above: Performed By: #### U AX, UMICAO #### [facility] [address] [place], [place] [phone] Commissioning Engineer: Emerson Hall MD Amorphous sediment LM Ql (Urine sed) NOT REPORTED Normal [facility] Comment on above: Performed By: #### U AX, UMICAO #### [facility] [address] [place] [address] Commissioning Engineer: Emerson Hall MD Casts NOT REPORTED Normal [facility] Comment on above: Performed By: #### U AX, UMICAO #### [facility] [address] [place] [address] Commissioning Engineer: Emerson Hall MD Crystals LM Nom (Urine sed) NOT REPORTED Normal NONE [facility] Comment on above: Performed By: #### U AX, UMICAO #### [facility] [address] [place] [address] Commissioning Engineer: Emerson Hall MD Epithelial, Renal NOT REPORTED Normal 0 [facility] Comment on above: Performed By: #### U AX, UMICAO #### [facility] [address] [place] [address] Commissioning Engineer: Emerson Hall MD Other Observations NOT REPORTED Normal NREQ [facility] Comment on above: Performed By: #### U AX, UMICAO #### [facility] [address] [place] [address] Commissioning Engineer: Emerson Hall MD Trichomonas NOT REPORTED Normal [facility] Comment on above: Performed By: #### U AX, UMICAO #### [facility] [address] [place] [address] Commissioning Engineer: Emerson Hall MD Yeast NOT REPORTED Normal NONE [facility] Comment on above: Performed By: #### U AX, UMICAO #### [facility] [address] [place] [address] Commissioning Engineer: Emerson Hall MD Venous Blood Gaseson 021 Body Temp. 37.0 Normal [facility] Comment on above: Performed By: #### U AX, UMICAO #### [facility] [address] [place] [address] Commissioning Engineer: Emerson Hall MD HCO3 (Bld) [Moles/Vol] 28.0 mmol/L Normal 24.0-30.0 [facility] Comment on above: Performed By: #### U AXDINESHICAO #### [facility] [address] [place], [place] [id number] Commissioning Engineer: Emerson Hall MD Oxygen (Bld) [Partial pressure] 24.4 mm[Hg] Low 30.0-50.0 [facility] Comment on above: Performed By: #### U DINESH REBOLLEDOICAO #### [facility] [address] [place], [place] [id number] Commissioning Engineer: Emerson Hall MD Oxygen saturation in Blood 39.6 % Low 60.0-85.0 [facility] Comment on above: Performed By: #### JANELL MARQUESO #### [facility] [address] [place], [place] [phone] Commissioning Engineer: Emerson Hall MD pCO2 52.9 Normal 39-55 [facility] Comment on above: Performed By: #### U JANELL REBOLLEDOO #### [facility] [address] [place], [place] [address]83 Commissioning Engineer: Emerson Hall MD pH (Bld) 7.342 [pH] Normal 7.32-7.42 [facility] Comment on above: Performed By: #### U DINESH REBOLLEDOICAO #### [facility] [address] [place], [place] [address] Commissioning Engineer: Emerson Hall MD Positive Base Excess 1.2 mmol/L Normal 0.0-2.0 [facility] Comment on above: Performed By: #### U AX UMICAO #### [facility] [address] [place], [place] [address] Commissioning Engineer: Emerson Hall MD Text for Respiratory DRAWN PER ED RN Normal [facility] Comment on above: Performed By: #### U AX, UMICAO #### [facility] [address] [place], [place] [address]83 Commissioning Engineer: Emerson Hall MD Arthur Test NOT REPORTED Normal [facility] Comment on above: Performed By: #### U AX, UMICAO #### [facility] [address] [place], [place] [id number] Commissioning Engineer: Emerson Hall MD Carboxy Hgb NOT REPORTED Normal 0.0-5.0 [facility] Comment on above: Performed By: #### U AX, UMICAO #### [facility] [address] [place] [address] Commissioning Engineer: Emerson Hall MD FIO2 NOT REPORTED Normal [facility] Comment on above: Performed By: #### U AX, UMICAO #### [facility] [address] [place] [address] Commissioning Engineer: Emerson Hall MD Methemoglobin NOT REPORTED Normal 0.0-1.9 [facility] Comment on above: Performed By: #### U AX, UMICAO #### [facility] [address] [place] [address] Commissioning Engineer: Emerson Hall MD Mode NOT REPORTED Normal [facility] Comment on above: Performed By: #### U AX, UMICAO #### [facility] [address] [place] [address] Commissioning Engineer: Emerson Hall MD Negative Base Excess NOT REPORTED Normal 0.0-2.0 [facility] Comment on above: Performed By: #### U AX, UMICAO #### [facility] [address] [place], [place] [id number] Commissioning Engineer: Emerson Hall MD Notification Time NOT REPORTED Normal [facility] Comment on above: Performed By: #### U AX, UMICAO #### [facility] [address] [place], [place] [id number] Commissioning Engineer: Emerson Hall MD Notification: NOT REPORTED Normal [facility] Comment on above: Performed By: #### U AX, UMICAO #### [facility] [address] [place], [place] [address]83 Commissioning Engineer: Emerson Hall MD O2 Device/Flow/% NOT REPORTED Normal [facility] Comment on above: Performed By: #### U AX, UMICAO #### [facility] [address] [place], [place] [phone] Commissioning Engineer: Emerson Hall MD Oxyhemoglobin NOT REPORTED Normal 95.0-98.0 [facility] Comment on above: Performed By: #### U AX, UMICAO #### [facility] [address] [place] [address] Commissioning Engineer: Emerson Hall MD Pco2 Adj'd for Temp. NOT REPORTED Normal 39.0-55.0 [facility] Comment on above: Performed By: #### U AX, UMICAO #### [facility] [address] [place] [address] Commissioning Engineer: Emerson Hall MD PEEP/CPAP NOT REPORTED Normal [facility] Comment on above: Performed By: #### U AX, UMICAO #### [facility] [address] [place] [address] Commissioning Engineer: Emerson Hall MD pH Adjst'd for Temp. NOT REPORTED Normal 7.320-7.420 [facility] Comment on above: Performed By: #### U AX, UMICAO #### [facility] [address] [place], [place] [phone] Commissioning Engineer: Emerson Hall MD pO2 Adj'd for Temp. NOT REPORTED Normal 30.0-50.0 [place] Comment on above: Performed By: #### U AX, UMICAO #### [facility] [address] [place] [address] Commissioning Engineer: Emerson Hall MD PSV NOT REPORTED Normal [facility] Comment on above: Performed By: #### U AX, UMICAO #### [facility] [address] [place] [address] Commissioning Engineer: Emerson Hall MD Pt. Position NOT REPORTED Normal [facility] Comment on above: Performed By: #### U AX, UMICAO #### [facility] [address] [place] [address] Commissioning Engineer: Emerson Hall MD Respiratory Rate NOT REPORTED Normal [facility] Comment on above: Performed By: #### U AX, UMICAO #### [facility] [address] [place] [address] Commissioning Engineer: Emerson Hall MD Set Rate NOT REPORTED Normal [facility] Comment on above: Performed By: #### U AX, UMICAO #### [facility] [address] [place] [address] Commissioning Engineer: Emerson Hall MD Site Drawn NOT REPORTED Normal [facility] Comment on above: Performed By: #### U AX, UMICAO #### [facility] [address] [place] [address] Commissioning Engineer: Emerson Hall MD Total Hb NOT REPORTED Normal 12.0-16.0 [facility] Comment on above: Performed By: #### U AX, UMICAO #### [facility] [address] [place] [address] Commissioning Engineer: Emerson Hall MD Total Rate NOT REPORTED Normal [facility] Comment on above: Performed By: #### U AX, UMICAO #### [facility] [address] [place] [address] Commissioning Engineer: Emerson Hall MD VT NOT REPORTED Normal [facility] Comment on above: Performed By: #### U AXDONNY #### [facility] [address] [place] [address] Commissioning Engineer: Emerson Hall MD XR CHEST PORTABLEon 10-20-19 [...] Milton Zheng MD 10/19/20 Final result Normal [facility] XR CHEST PORTABLEOrdered By: Radu Worrell on 10-19-2020 No acute cardiopulmonary disease [employer] Phone: EXAMINATION: ONE XRA Y VIEW OF [...] bony abnormalities. The hilar structures are normal. [employer] Phone: Romero, pn Incoming Radiant Results From [employer] - 10/19/2020 7:02 PM EDT EXAMINATION: ONE [...] are normal. IMPRESSION: No acute cardiopulmonary disease [employer] Phone: [employer] Phone: ANION GAPon 08-05-2020 Anion gap [Moles/Vol] 8.0 mmol/L Normal 8.0-16.0 [facility] Comment on above: Result Comment: ANIO N GAP = Sodium -(Chloride + CO2) Performed By: #### C BCWD, BMP, MG, ANION, EGFR1 #### [facility] [employer] [address] [place] [address] Anion GapOrdered By: Jack Mensah on 08-05-2020 Anion gap [Moles/Vol] 8.0 mmol/L 8.0 - 16.0 meq/L [employer] Phone: Comment on above: ANION GAP = Sodium - (Chloride + CO2) Performed at [facility] [address] [place] [address] BASIC METABOL PANELon 2020 Calcium [Mass/Vol] 9.3 mg/dL Normal 8.5-10.5 [facility] Comment on above: Performed By: #### C BCWD, BMP, MG, ANION, EGFR1 #### [facility] [address] [place] [address] Chloride [Moles/Vol] 107 mmol/L Normal 98-111 [facility] Comment on above: Performed By: #### C BCWD, BMP, MG, ANION, EGFR1 #### [facility] [address] [place] [address] CO2 [Moles/Vol] 23 mmol/L Normal 23-33 [facility] Comment on above: Performed By: #### C BCWD, BMP, MG, ANION, EGFR1 #### [facility] [address] [place] [address] Creatinine [Mass/Vol] 0.6 mg/dL Normal 0.4-1.2 [facility] Comment on above: Performed By: #### C BCWD, BMP, MG, ANION, EGFR1 #### [facility] [employer] [address] [place] [address] Glucose [Mass/Vol] 101 mg/dL Normal 70-108 [facility] Comment on above: Performed By: #### C BCWD, BMP, MG, ANION, EGFR1 #### [facility] [employer] [address] [place] [address] Potassium [Moles/Vol] 3.8 mmol/L Normal 3.5-5.2 [facility] Comment on above: Performed By: #### C BCWD, BMP, MG, ANION, EGFR1 #### [facility] [employer] [address] [place] [address] Sodium [Moles/Vol] 138 mmol/L Normal 135-145 [facility] Comment on above: Performed By: #### C BCWD, BMP, MG, ANION, EGFR1 #### [facility] [employer] [address] [address] Urea nitrogen [Mass/Vol] 12 mg/dL Normal 7-22 [facility] Comment on above: Performed By: #### C BCWD, BMP, MG, ANION, EGFR1 #### [facility] [employer] [address] [place] [address] Basic Metabolic PanelOrdered By: Jack Mensah on 08-05-2020 Calcium [Mass/Vol] 9.3 mg/dL 8.5 - 10. 5 mg/dL [employer] Phone: Comment on above: Performed at [facility] [address] [place] [address] Chloride [Moles/Vol] 107 mmol/L 98 - 11 1 meq/L [employer] Work Phone: CO2 [Moles/Vol] 23 mmol/L 23 - 33 meq/L [employer] Work Phone: Creatinine [Mass/Vol] 0.6 mg/dL 0.4 - 1.2 mg/dL [employer] Phone: Glucose [Mass/Vol] 101 mg/dL 70 - 108 mg/dL [employer] Phone: Potassium [Moles/Vol] 3.8 mmol/L 3.5 - 5.2 meq/L [employer] Phone: Sodium [Moles/Vol] 138 mmol/L 135 - 145 meq/L [employer] Phone: Urea nitrogen (BldV) [Mass/Vol] 12 mg/dL 7 - 22 mg/dL [employer] Phone: CBC Auto DifferentialOrdered By: Jack Mensah on 08-05-2020 Basophils (Bld) [#/Vol] 0.1 10*3/uL [employer] Phone: Basophils/100 WBC (Bld) 1.4 % [employer] Phone: Eosinophils Absolute 0.3 [employer] Phone: Eosinophils/100 WBC (Bld) 3.3 % [employer] Phone: Erythrocyte distribution width (RBC) [Ratio] 13.2 % 11.5 - 14.5 % [employer] Phone: Erythrocyte distribution width (RBC) [Ratio] 47.8 fL High 35.0 - 45.0 fL [employer] Phone: Hematocrit (Bld) [Volume fraction] 42.3 % 37.0 - 47.0 % [employer] Phone: Hemoglobin.gastrointes tinal spec 1 Ql (Stl) 13.1 [employer] Work Phone: Immature Grans (Abs) 0.04 [employer] Phone: Immature granulocytes/100 WBC (Bld) 0.5 % [employer] Phone: Interpretation and review of laboratory results Abnormal [employer] Work Phone: Lymphocytes Absolute 2.3 [employer] Work Phone: Lymphocytes/100 WBC (Bld) 29.4 % [employer] Phone: MCH (RBC) [Entitic mass] 30.5 pg 26.0 - 33.0 pg [employer] Work Phone: MCHC (RBC) [Mass/Vol] 31.0 g/dL Low [facility] [employer] Work Phone: MCV (RBC) [Entitic vol] 98.6 fL 81.0 - 99.0 fL [facility] Phone: Monocytes Absolute 0.7 [facility] Work Phone: Monocytes/100 WBC (Bld) 9.4 % [employer] Work Phone: nRBC 0 /100 wbc [employer] Work Phone: Comment on above: Performed at [facility] [address] [place] [address] Platelet mean volume (Bld) [Entitic vol] 8.9 fL Low 9.4 - 12.4 fL [employer] Phone: Platelets (Bld) [#/Vol] 242 10*3/uL [employer] Work Phone: RBC (Bld) [#/Vol] 4.29 10*6/uL [employer] Work Phone: Segmented neutrophils/100 WBC (Bld) 56 % [employer] Work Phone: Segs Absolute 4.3 [employer] Work Phone: WBC (Bld) [#/Vol] 7.7 10*3/uL [employer] Work Phone: CBC WITH DIFFERENTIALon 07-10 ABS BASOPHILS 0.1 thou/mm3 Normal 0.0-0.1 [facility] Comment on above: Performed By: #### C BCWD, BMP, MG, ANION, EGFR1 #### [address] [address] ABS EOSINOPHILS 0.3 thou/mm3 Normal 0.0-0.4 [facility] Comment on above: Performed By: #### C BCWD, BMP, MG, ANION, EGFR1 #### [address] [address] ABS IMMATURE GRANS (IG) 0.04 thou/mm3 Normal 0.00-0.07 [facility] Comment on above: Performed By: #### C BCWD, BMP, MG, ANION, EGFR1 #### [address] [address] ABS LYMPHOCYTES 2.3 thou/mm3 Normal 1.0-4.8 [facility] Comment on above: Performed By: #### C BCWD, BMP, MG, ANION, EGFR1 #### [address] [address] ABS MONOCYTES 0.7 thou/mm3 Normal 0.4-1.3 [facility] Comment on above: Performed By: #### C BCWD, BMP, MG, ANION, EGFR1 #### [address] [address] ABS NEUTROPHILS 4.3 thou/mm3 Normal 1.8-7.7 [facility] Comment on above: Performed By: #### C BCWD, BMP, MG, ANION, EGFR1 #### [address] [address] Basophils/100 WBC (Bld) 1.4 % Normal [facility] Comment on above: Performed By: #### C BCWD, BMP, MG, ANION, EGFR1 #### [facility] [address] [place] [address] Eosinophils/100 WBC (Bld) 3.3 % Normal [facility] Comment on above: Performed By: #### C BCWD, BMP, MG, ANION, EGFR1 #### [address] [address] Erythrocyte distribution width (RBC) [Ratio] 13.2 % Normal 11.5-14.5 [facility] Comment on above: Performed By: #### C BCWD, BMP, MG, ANION, EGFR1 #### [address] [address] Hematocrit (Bld) [Volume fraction] 42.3 % Normal 37.0-47.0 [facility] Comment on above: Performed By: #### C BCWD, BMP, MG, ANION, EGFR1 #### [place] [address] Hemoglobin (Bld) [Mass/Vol] 13.1 g/dL Normal 12.0-16.0 [facility] Comment on above: Performed By: #### C BCWD, BMP, MG, ANION, EGFR1 #### [place] [address] IMMATURE GRANS (IG) 0.5 % Normal [facility] Comment on above: Performed By: #### C BCWD, BMP, MG, ANION, EGFR1 #### [address] [address] Lymphocytes/100 WBC (Bld) 29.4 % Normal [facility] Comment on above: Performed By: #### C BCWD, BMP, MG, ANION, EGFR1 #### [address] [address] MCH (RBC) [Entitic mass] 30.5 pg Normal 26.0-33.0 [facility] Comment on above: Performed By: #### C BCWD, BMP, MG, ANION, EGFR1 #### [address] [address] MCHC (RBC) [Mass/Vol] 31.0 g/dL Low 32.2-35.5 [facility] Comment on above: Performed By: #### C BCWD, BMP, MG, ANION, EGFR1 #### [address] [address] MCV (RBC) [Entitic vol] 98.6 fL Normal 81.0-99.0 [facility] Comment on above: Performed By: #### C BCWD, BMP, MG, ANION, EGFR1 #### [facility] [address] [place] [address] Monocytes/100 WBC (Bld) 9.4 % Normal [facility] Comment on above: Performed By: #### C BCWD, BMP, MG, ANION, EGFR1 #### [facility] [address] [place] [address] Neutrophils/100 WBC (Bld) 56.0 % Normal [facility] Comment on above: Performed By: #### C BCWD, BMP, MG, ANION, EGFR1 #### [facility] [address] [place] [address] NRBC 0 /100 wbc Normal [facility] Comment on above: Performed By: #### C BCWD, BMP, MG, ANION, EGFR1 #### [facility] [address] [place] [address] PLATELET 242 thou/mm3 Normal 130-400 [facility] Comment on above: Performed By: #### C BCWD, BMP, MG, ANION, EGFR1 #### [facility] [address] [place] [address] Platelet mean volume (Bld) [Entitic vol] 8.9 fL Low 9.4-12.4 [facility] Comment on above: Performed By: #### C BCWD, BMP, MG, ANION, EGFR1 #### [facility] [address] [place] [address] RBC 4.29 mill/mm3 Normal 4.20-5.40 [facility] Comment on above: Performed By: #### C BCWD, BMP, MG, ANION, EGFR1 #### [facility] [address] [place] [address] RDW-SD 47.8 fL High 35.0-45.0 [facility] Comment on above: Performed By: #### C BCWD, BMP, MG, ANION, EGFR1 #### [facility] [address] [place] [address] WBC 7.7 thou/mm3 Normal 4.8-10.8 [facility] Comment on above: Performed By: #### C BCWD, BMP, MG, ANION, EGFR1 #### [facility] [address] [place] [address] Culture, Reflexed, UrineOrde red By: Darien Ferrara on 08-05-2020 Interpretation and review of laboratory results Abnormal [employer] Phone: Organism Mixed Growth Abnormal [employer] Phone: Urine Culture Reflex Mixed growth. The mixture of organisms present represents both organisms that may cause urinary tract infections and organisms that are not a common cause of urinary tract infections and are possibly skin hermilo or distal urethral hermilo. Abnormal [employer] Phone: Source: urine, clean catch Site: Current Antibiotics: not stated [employer] Phone: GFR, ESTIMATEDon 08-05-2020 GFR/1.73 sq M.predicted MDRD (S/P/Bld) [Vol rate/Area] mL/min/{1.73_m2} Normal [facility] Comment on above: Result Comment: Stag [...] C BCWD, BMP, MG, ANION, EGFR1 #### [facility] [address] [place] [address] GLUCOSE POCon 08-05-2020 Glucose [Mass/Vol] 88 mg/dL Normal 70-108 [facility] Comment on above: Performed By: #### P OCGL #### [facility] [address] [place] [address] Glomerular Filtration Rate, EstimatedOrdered By: Jack Mensah on 08-05-2020 GFR/1.73 sq M.predicted MDRD (S/P/Bld) [Vol rate/Area] mL/min/{1.73_m2} ml/min/1.73m 2 [employer] Phone: Comment on above: Stage Description GF [...] & race. Meme. Internal Med., Vol. 139 (2 pg 137-147. Performed at [facility] [address] [place] [address] MAGNESIUMon 08-05-2020 Magnesium [Mass/Vol] 2.0 mg/dL Normal 1.6-2.4 [facility] Comment on above: Performed By: #### C BCWD, BMP, MG, ANION, EGFR1 #### [facility] [address] [place] [address] MagnesiumOrdered By: Jack Mensah on 08-05-2020 Magnesium [Mass/Vol] 2.0 mg/dL 1.6 - 2 .4 mg/dL [employer] Phone: Comment on above: Performed at [facility] [address] [place] [address] POCT GlucoseOrdered By: Lexie Garcia on 08-05-2020 Glucose [Mass/Vol] 88 mg/dL 70 - 108 mg/dl [employer] Phone: Comment on above: Performed at [facility] [address] [place] [address] MRI BRAIN W WO CONTRASTOrder ed By: [...] Dr. Gracie Kruse on 08/04/2020 1:28 PM [employer] Phone: Romero, Wcoh Incoming Radiant Results From [employer] - 08/04/2020 1:30 PM EDT PROCEDURE: MRI [...] Final report electronically signed by Dr. Gracie Krsue on 08/04/2020 1:28 PM [employer] Phone: REFLEX CULT URon 08-04-2020 REFLEX CULT UR MICROBIOLOGY REPORT [facility], [address] [place] [address], [place], [address] PATIENT: LILLIANA PATEL LOCATION: [address] [place], [place] [address] -A : 1940 AGE: 79 SEX: F ADM: 08/04/20 Att. Physician: DARLYN GARCIA Order Id: [id number] Req. Physician: DARIEN FERRARA Source: urine, clean [...] urethral hermilo. Organism 00 Mixed Growth Normal [facility] Comment on above: Performed By: #### U RCS2 #### [facility] [address] [place] [address] T4 (FREE)on 08-04-2020 T4 (FREE) 1.00 ng/dL Normal 0.93-1.76 [facility] Comment on above: Performed By: #### C BCWD, BMP, MG, ANION, EGFR1 #### [facility] [employer] [address] [place] [address] T4, FreeOrdered By: Shirley Ferrara on 08-04-2020 Free T4 [Mass/Vol] 1 ng/dL 0.93 - 1. 76 ng/dL [employer] Work Phone: Comment on above: Performed at [facility] [address] [place] [address] TSH W/ REFLEX FT4on 08-05-19 21 TSH THIRD GENERATION 5.250 uIU/mL High 0.400-4.200 [facility] Comment on above: Performed By: #### T SHRF, VB12F, FT4 #### [facility] [address] [place] [address] TSH with ReflexOrdered By: Jessica Ferrara on 08-04-2020 Interpretation and review of laboratory results Abnormal [employer] Work Phone: TSH Qn 5.250 m[IU]/L High [facility] Work Phone: Comment on above: Performed at [facility] [address] [place] [address] UA WITH MICROSCOPICon 2020 BACTERIA FEW Normal FEW/NONE SEEN [facility] Comment on above: Performed By: #### U RCS2 #### [facility] [address] [place] [address] CASTS NONE SEEN Normal NONE SEEN [facility] Comment on above: Performed By: #### U RCS2 #### [facility] [address] [place] [address] CASTS 2 NONE SEEN Normal NONE SEEN [facility] Comment on above: Performed By: #### U RCS2 #### [facility] [address] [place] [address] Crystals LM Nom (Urine sed) NONE SEEN Normal NONE SEEN [facility] Comment on above: Performed By: #### U RCS2 #### [facility] [address] [place] [address] EPITHELIAL 3 /hpf Normal 3-5/hpf [facility] Comment on above: Performed By: #### U RCS2 #### [facility] [address] [place] [address] MISCELLANEOUS 2 NONE SEEN Normal [facility] Comment on above: Performed By: #### U RCS2 #### [facility] [address] [place] [address] RBC 0 /hpf Normal 0-2/hpf [facility] Comment on above: Performed By: #### U RCS2 #### [facility] [address] [place] [id number] RENAL EPITHELIAL NONE SEEN Normal NONE SEEN [facility] Comment on above: Performed By: #### U RCS2 #### [facility] [address] [place] [address] 08652 WBC 25 /hpf Normal 0-4/hpf [facility] Comment on above: Performed By: #### U RCS2 #### [facility] [address] [place] [address]65[address] YEAST NONE SEEN Normal NONE SEEN [facility] Comment on above: Performed By: #### U RCS2 #### [facility] [address] [place] [address] [phone] Bilirubin Ql (U) Negative Normal NEGATIVE [facility] Comment on above: Performed By: #### U RCS2 #### [facility] [address] [place] [address] CHARACTER CLEAR Normal CLEAR-SL CLOUD [facility] Comment on above: Performed By: #### U RCS2 #### [facility] [address] [place] [address] Color (U) YELLOW Normal STRAW-YELLOW [facility] Comment on above: Performed By: #### U RCS2 #### [facility] [address] [place] [address] [place] [address] Glucose Ql (U) Negative Normal NEGATIVE [facility] Comment on above: Performed By: #### U RCS2 #### [facility] [address] [place] [address]65 Hemoglobin Ql (U) TRACE Abnormal NEGATIVE [facility] Comment on above: Performed By: #### U RCS2 #### [facility] [address] [place] [phone] Ketones Ql (U) Negative Normal NEGATIVE [facility] Comment on above: Performed By: #### U RCS2 #### [address] [place] [address] LEUKOCYTES LARGE Abnormal NEGATIVE [facility] Comment on above: Performed By: #### U RCS2 #### [facility] [address] [place] [address] Nitrite Ql (U) Negative Normal NEGATIVE [facility] Comment on above: Performed By: #### U RCS2 #### [facility] [address] [place] [address] 23800 pH (U) 7.0 [pH] Normal 5.0 - 9.0 [facility] Comment on above: Performed By: #### U RCS2 #### [facility] [address] [place] [address] 45[address] Protein Ql (U) Negative Normal NEGATIVE [facility] Comment on above: Performed By: #### U RCS2 #### [facility] [address] [place] [address] Specific gravity (U) [Rel density] 1.012 Normal 1.002-1.030 [facility] Comment on above: Performed By: #### U RCS2 #### [facility] [address] [place] [address] Urobilinogen Qn (U) 0.2 {Kannan'U}/dL Normal 0.0 - 1. 0 [facility] Comment on above: Performed By: #### U RCS2 #### [employer] [address] [place] [address] Urine with Reflexed MicroOrd ered By: Darien Ferrara on 08-04-2020 Bacteria, UA FEW FEW/NONE SEEN /hpf [facility] Work Phone: Bilirubin Urine Negative NEGATIVE [facility] Work Phone: Blood, Urine TRACE Abnormal NEGATIVE [facility] Work Phone: CASTS 2 NONE SEEN NONE SEEN /lpf [facility] Work Phone: Casts UA NONE SEEN NONE SEEN /lpf [facility] Work Phone: Character, Urine CLEAR CLEAR-SL CLOUD [facility] Work Phone: Color, UA YELLOW STRAW-YELLOW [facility] Work Phone: Crystals, UA NONE SEEN NONE SEEN [facility] Work Phone: Epithelial Cells, UA 3-5 3-5/hpf /hpf [facility] [employer] Work Phone: Glucose, Ur Negative NEGATIVE mg/dl [facility] [employer] Work Phone: Interpretation and review of laboratory results Abnormal [facility] Work Phone: Ketones Ql (U) Negative NEGATIVE [employer] Work Phone: Leukocyte esterase Test strip Ql (U) LARGE Abnormal NEGATIVE [facility] Work Phone: MISCELLANEOUS 2 NONE SEEN [employer] [place] Work Phone: Comment on above: Performed at [facility] [address] [place] [address] Nitrite, Urine Negative NEGATIVE [employer] Work Phone: pH, UA 7.0 [employer] Phone: Protein, UA Negative NEGATIVE [employer] Phone: RBC, UA 0-2 0-2/hpf /hpf [employer] Phone: Renal Epithelial, UA NONE SEEN NONE SEEN [employer] Phone: Specific [place], Urine 1.012 [employer] Phone: Urobilinogen, Urine 0.2 [employer] Phone: WBC, UA 25-50 0-4/hpf /hpf [employer] Phone: Yeast, UA NONE SEEN NONE SEEN [employer] Phone: VITAMIN B12 FOLATEon 021 Cobalamin (Vitamin B12) [Mass/Vol] 1839 pg/mL High 211-911 [facility] Comment on above: Performed By: #### C BCWD, BMP, MG, ANION, EGFR1 #### [employer] [address] [place] [address]86 FOLATE 14.6 ng/mL Normal 4.8-24.2 [facility] Comment on above: Performed By: #### C BCWD, BMP, MG, ANION, EGFR1 #### [employer] [address] [place] [address] Vitamin B12 & folateOrdered By: Darien Ferrara on 08-04-2020 Cobalamin (Vitamin B12) [Mass/Vol] 1839 pg/mL High 211 - 911 pg/mL [employer] Phone: Folate 14.6 ng/mL 4.8 - 24.2 ng/mL [employer] Phone: Comment on above: Performed at [facility] [employer] [facility] [address] [place] [phone] Interpretation and review of laboratory results Abnormal [employer] Phone: VL DUP UPPER EXTREMITY VENOU S RIGHTon 05-13-2020 [facility] Procedure Patient Name DANA Date of Study 05/13/2020 LILLIANA Salmeron Date of 1940 Gender Female Age 79 year(s) Race Room Number Corporate ID [id number] # Patient Acct [id number] # MR # [id number] Food Tester CELSA Mensah [facility] Interpreting Physician Reymundo Barbosa MD Referring [...] + +-------- --+ +---- ------+ !Location !Visualized!Compressibi litangelo!Thrombosis! + +-------- --+ +---- ------+ !Prox IJV [...] !Phasic ! ! + ---+ ----+ ------+ [facility] [place], [place] Rom[place], p[place] Incoming Cardio Results From [facility]/ - 05/13/2020 12:[address] [facility] Vascular Upper Extremities Veins Procedure Patient Name DANA Date of Study 05/13/2020 LILLIANA B Date of 1940 Gender Female Age 79 year(s) Race Room Number Corporate ID [id number] # Patient Acct [id number] # MR # [id number] Food Tester Rodrick, RVT Karen Son T Interpreting Physician [...] ! ! + ---+ ----+ ------ + [facility], [place] CBC Auto Differentialon 02-08 Basophils (Bld) [#/Vol] 0.10 10*3/uL [facility] Basophils/100 WBC (Bld) 1 % 0 - 2 % [place] Differential Type NOT REPORTED [place] Eosinophils (Bld) [#/Vol] 0.25 10*3/uL [facility] Eosinophils/100 WBC (Bld) 3 % 1 - 4 % [place] Erythrocyte distribution width (RBC) [Ratio] 12.9 % 11.8 - 14.4 % [place] Hematocrit (Bld) [Volume fraction] 42.7 % 36.3 - 47.1 % [place] Hemoglobin (Bld) [Mass/Vol] 13.5 g/dL 11.9 - 15.1 g/dL [place] Immature granulocytes (Bld) [#/Vol] 1 % High 0 [place] Immature granulocytes (Bld) [#/Vol] 0.04 10*3/uL [facility] Interpretation and review of laboratory results Abnormal [place] Lymphocytes (Bld) [#/Vol] 3.21 10*3/uL [place] Lymphocytes/100 WBC (Bld) 39 % 24 - 43 % [place] MCH (RBC) [Entitic mass] 31.0 pg 25.2 - 33.5 pg [place] MCHC (RBC) [Mass/Vol] 31.6 g/dL 28.4 - 34.8 g/dL [place] MCV (RBC) [Entitic vol] 97.9 fL 82.6 - 102.9 fL [place] Monocytes (Bld) [#/Vol] 0.62 10*3/uL [place] Monocytes/100 WBC (Bld) 8 % 3 - 12 % [place] Platelet mean volume (Bld) [Entitic vol] 9.4 fL 8.1 - 13.5 fL [place] Platelets (Bld) [#/Vol] 250 10*3/uL [place] Platelets (Bld) [#/Vol] NOT REPORTED [place] RBC (Bld) [#/Vol] 4.36 10*6/uL 3.95 - 5.1 1 m/uL [place] RBC morphology finding Nom (Bld) NOT REPORTED [place] Segmented neutrophils/100 WBC (Bld) 48 % 36 - 65 % [place] Segs Absolute 4.09 [place] WBC (Bld) [#/Vol] 0.0 10*3/uL 0.0 per 10 0 WBC [place] WBC (Bld) [#/Vol] 8.3 10*3/uL [place] WBC Morphology NOT REPORTED [place] Comprehensive Metabolic Pane uriel 02-25-2020 Albumin [Mass/Vol] 3.9 g/dL 3.5 - 5.2 g/dL [place] Albumin/Globulin [Mass ratio] 1.6 {ratio} [place] ALP [Catalytic activity/Vol] 60 U/L 35 - 104 U/L [place] ALT [Catalytic activity/Vol] 7 U/L 5 - 33 U/L [place] Anion gap [Moles/Vol] 7 mmol/L Low 9 - 17 mmol/L [place] AST [Catalytic activity/Vol] 14 U/L <32 [place] Bilirubin Ql (U) 0.52 mg/dL 0.3 - 1.2 mg/dL [place] Bun/Cre Ratio 11 [place] Calcium [Mass/Vol] 9.7 mg/dL 8.6 - 10. 4 mg/dL [place] Chloride [Moles/Vol] 105 mmol/L 98 - 10 7 mmol/L [place] CO2 [Moles/Vol] 27 mmol/L 20 - 31 mmol/L [place] Creatinine [Mass/Vol] 0.7 mg/dL 0.5 - 0.9 mg/dL [place] GFR >60 >60 mL/min [place] GFR Non- >60 >60 mL/min [place] Glucose [Mass/Vol] 95 mg/dL 70 - 99 mg/dL [place] Interpretation and review of laboratory results Abnormal [place] Potassium [Moles/Vol] 5.0 mmol/L 3.7 - 5.3 mmol/L [place] Protein [Mass/Vol] 6.3 g/dL Low 6.4 - 8.3 g/dL [place] Sodium [Moles/Vol] 139 mmol/L 135 - 144 mmol/L [place] Urea nitrogen [Mass/Vol] 8 mg/dL 8 - 23 mg/dL [place] Lipid Panelon 02-25-2020 Cholesterol [Mass/Vol] 162 mg/dL <200 [place] Comment on above: Cholesterol Guidelines: <200 Desirable 200-240 Borderline >240 Undesirable Cholesterol in HDL [Mass/Vol] 60 mg/dL >40 [place] Comment on above: HDL Guidelines: <40 Undesirable 40-59 Borderline >59 Desirable Cholesterol in LDL [Mass/Vol] 88 mg/dL 0 - 130 mg/dL [place] Comment on above: LDL Guidelines: <100 Desirable 100-129 Near to/above Desirable 130-159 Borderline >159 Undesirable Direct (measured) LDL and calculated LDL are not interchangeable tests. Cholesterol in VLDL [Mass/Vol] NOT REPORTED 1 - 30 mg/dL [place] Cholesterol.total/Chol esterol in HDL [Mass ratio] 2.7 {ratio} <5 [place] Triglyceride [Mass/Vol] 68 mg/dL <150 [place] Comment on above: Triglyceride Guidelines: <150 Desirable 150-199 Borderline 200-499 High >499 Very high Based on AHA Guidelines for fasting triglyceride, January 2012. Metabolic Panelon 02-25-2020 GFR/1.73 sq M predicted among non-blacks MDRD (S/P/Bld) [Vol rate/Area] [place] Comment on above: Stage 1: Some [...] body mass. Additional eGFR calculator available at: http://www.[employer] [place]/multiple_crcl_2011.htm CBC Auto Differentialon 10-08 Basophils (Bld) [#/Vol] 0.07 10*3/uL [place] Basophils/100 WBC (Bld) 1 % 0 - 2 % [place] Differential Type NOT REPORTED [place] Eosinophils (Bld) [#/Vol] 0.20 10*3/uL [place] Eosinophils/100 WBC (Bld) 2 % 1 - 4 % [place] Erythrocyte distribution width (RBC) [Ratio] 13.2 % 11.8 - 14.4 % [place] Hematocrit (Bld) [Volume fraction] 43.8 % 36.3 - 47.1 % [place] Hemoglobin (Bld) [Mass/Vol] 13.6 g/dL 11.9 - 15.1 g/dL [place] Immature granulocytes (Bld) [#/Vol] 1 % High 0 [place] Immature granulocytes (Bld) [#/Vol] 0.05 10*3/uL [place] Interpretation and review of laboratory results Abnormal [place] Lymphocytes (Bld) [#/Vol] 3.08 10*3/uL [place] Lymphocytes/100 WBC (Bld) 32 % 24 - 43 % [place] MCH (RBC) [Entitic mass] 30.0 pg 25.2 - 33.5 pg [place] MCHC (RBC) [Mass/Vol] 31.1 g/dL 28.4 - 34.8 g/dL [place] MCV (RBC) [Entitic vol] 96.7 fL 82.6 - 102.9 fL [place] Monocytes (Bld) [#/Vol] 0.73 10*3/uL [place] Monocytes/100 WBC (Bld) 8 % 3 - 12 % [place] Platelet mean volume (Bld) [Entitic vol] 9.8 fL 8.1 - 13.5 fL [place] Platelets (Bld) [#/Vol] 278 10*3/uL [place] Platelets (Bld) [#/Vol] NOT REPORTED [place] RBC (Bld) [#/Vol] 4.53 10*6/uL 3.95 - 5.1 1 m/uL [place] RBC morphology finding Nom (Bld) NOT REPORTED [place] Segmented neutrophils/100 WBC (Bld) 56 % 36 - 65 % [place] Segs Absolute 5.63 [place] WBC (Bld) [#/Vol] 9.8 10*3/uL [place] WBC (Bld) [#/Vol] 0.0 10*3/uL 0.0 per 10 0 WBC [place] WBC Morphology NOT REPORTED [place] Comprehensive Metabolic Pane uriel 10-18-2019 Albumin [Mass/Vol] 4 g/dL 3.5 - 5.2 g/dL [place] Albumin/Globulin [Mass ratio] 1.4 {ratio} [place] ALP [Catalytic activity/Vol] 67 U/L 35 - 104 U/L [place] ALT [Catalytic activity/Vol] 13 U/L 5 - 33 U/L [place] Anion gap [Moles/Vol] 8 mmol/L Low 9 - 17 mmol/L [place] AST [Catalytic activity/Vol] 18 U/L <32 [place] Bilirubin Ql (U) 0.50 mg/dL 0.3 - 1.2 mg/dL [place] Bun/Cre Ratio 21 High [place] Calcium [Mass/Vol] 9.5 mg/dL 8.6 - 10. 4 mg/dL [place] Chloride [Moles/Vol] 107 mmol/L 98 - 10 7 mmol/L [place] CO2 [Moles/Vol] 28 mmol/L 20 - 31 mmol/L [place] Creatinine [Mass/Vol] 0.8 mg/dL 0.5 - 0.9 mg/dL [place] GFR >60 >60 mL/min [place] GFR Non- >60 >60 mL/min [place] Glucose [Mass/Vol] 110 mg/dL High 70 - 99 mg/dL [place] Interpretation and review of laboratory results Abnormal [place] Potassium [Moles/Vol] 5.6 mmol/L High 3.7 - 5.3 mmol/L [place] Protein [Mass/Vol] 6.9 g/dL 6.4 - 8.3 g/dL [place] Sodium [Moles/Vol] 143 mmol/L 135 - 144 mmol/L [place] Urea nitrogen [Mass/Vol] 17 mg/dL 8 - 23 mg/dL [place] Lipid Panelon 10-18-2019 Cholesterol [Mass/Vol] 149 mg/dL <200 [place] Comment on above: Cholesterol Guidelines: <200 Desirable 200-240 Borderline >240 Undesirable Cholesterol in HDL [Mass/Vol] 59 mg/dL >40 [place] Comment on above: HDL Guidelines: <40 Undesirable 40-59 Borderline >59 Desirable Cholesterol in LDL [Mass/Vol] 77 mg/dL 0 - 130 mg/dL [place] Comment on above: LDL Guidelines: <100 Desirable 100-129 Near to/above Desirable 130-159 Borderline >159 Undesirable Direct (measured) LDL and calculated LDL are not interchangeable tests. Cholesterol in VLDL [Mass/Vol] NOT REPORTED 1 - 30 mg/dL [place] Cholesterol.total/Chol esterol in HDL [Mass ratio] 2.5 {ratio} <5 [place] Triglyceride [Mass/Vol] 63 mg/dL <150 [place] Comment on above: Triglyceride Guidelines: <150 Desirable 150-199 Borderline 200-499 High >499 Very high Based on AHA Guidelines for fasting triglyceride, January 2012. Metabolic Panelon 10-18-2019 GFR/1.73 sq M predicted among non-blacks MDRD (S/P/Bld) [Vol rate/Area] [place] Comment on above: Stage 1: Some [...] body mass. Additional eGFR calculator available at: http://www.[employer]/multiple_crcl_2012.htm CBC Auto DifferentialOrdered By: Aye Nevarez on 04-22-2019 [employer] # 0.25 [facility] Work Phone: Absolute Immature Granulocyte 0.04 [facility] Work Phone: Absolute Lymph # 3.[address] [facility] Work Phone: Absolute [place] # 0.67 [facility] Work Phone: Basophils (Bld) [#/Vol] 0.10 10*3/uL [employer] Phone: Basophils/100 WBC (Bld) 1 % 0 - 2 % [employer] Phone: Differential Type NOT REPORTED [employer] Phone: Eosinophils/100 WBC (Bld) 3 % 1 - 4 % [employer] Phone: Erythrocyte distribution width (RBC) [Ratio] 12.6 % 11.8 - 14.4 % [employer] Phone: Hematocrit (Bld) [Volume fraction] 43.9 % 36.3 - 47.1 % [employer] Phone: Hemoglobin (Bld) [Mass/Vol] 13.7 g/dL 11.9 - 15.1 g/dL [employer] Phone: Immature granulocytes/100 WBC (Bld) 1 % High 0 [employer] Phone: Interpretation and review of laboratory results Abnormal [employer] Phone: Lymphocytes/100 WBC (Bld) 36 % 24 - 43 % [employer] Phone: MCH (RBC) [Entitic mass] 30.0 pg 25.2 - 33.5 pg [employer] Phone: MCHC (RBC) [Mass/Vol] 31.2 g/dL 28.4 - 34.8 g/dL [employer] Phone: MCV (RBC) [Entitic vol] 96.3 fL 82.6 - 102.9 fL [employer] Phone: Monocytes/100 WBC (Bld) 8 % 3 - 12 % [employer] Phone: NRBC Automated 0.0 0.0 per 100 WBC [employer] Phone: Platelet Estimate NOT REPORTED [employer] Phone: Platelet mean volume (Bld) [Entitic vol] 9.1 fL 8.1 - 13.5 fL [employer] Work Phone: Platelets (Bld) [#/Vol] 308 10*3/uL [employer] Phone: RBC (Bld) [#/Vol] 4.56 10*6/uL 3.95 - 5.1 1 m/uL [employer] Work Phone: RBC morphology finding Nom (Bld) NOT REPORTED [employer] Phone: Segmented neutrophils/100 WBC (Bld) 51 % 36 - 65 % [employer] Work Phone: Segs Absolute 4.47 [employer] Work Phone: WBC (Bld) [#/Vol] 8.7 10*3/uL [employer] Phone: WBC Morphology NOT REPORTED [employer] Work Phone: Comprehensive Metabolic Pane lOrdered By: Aye Nevarez on 04-22-2019 Albumin [Mass/Vol] 4 g/dL 3.5 - 5.2 g/dL [employer] Phone: Albumin/Globulin [Mass ratio] 1.3 {ratio} [employer] Phone: ALP [Catalytic activity/Vol] 71 U/L 35 - 104 U/L [employer] Phone: ALT [Catalytic activity/Vol] 11 U/L 5 - 33 U/L [employer] Phone: Anion gap [Moles/Vol] 10 mmol/L 9 - 17 mmol/L [employer] Phone: AST [Catalytic activity/Vol] 16 U/L <32 [employer] Phone: Bilirubin [Mass/Vol] 0.43 mg/dL 0.3 - 1 .2 mg/dL [employer] Phone: Bun/Cre Ratio 19 [employer] Work Phone: Calcium [Mass/Vol] 9.7 mg/dL 8.6 - 10. 4 mg/dL [employer] Phone: Chloride [Moles/Vol] 102 mmol/L 98 - 10 7 mmol/L [employer] Phone: CO2 [Moles/Vol] 26 mmol/L 20 - 31 mmol/L [employer] Phone: Creatinine [Mass/Vol] 0.69 mg/dL 0.5 - 0.9 mg/dL [employer] Phone: GFR >60 >60 mL/min [employer] Phone: GFR Comment [employer] Phone: Comment on above: Average GFR for 70 o r more years old: 75 mL/min/1.73sq m Chronic Kidney Disease: <60 mL/min/1.73sq m Kidney failure: <15 mL/min/1.73sq m eGFR calculated using average adult body mass. Additional eGFR calculator available at: http://www.[employer] [place]/multiple_crcl_2012.htm GFR Non- >60 >60 mL/min [employer] Phone: GFR Staging [employer] Phone: Comment on above: Stage 1: Some kidney damage normal GFR Stage 2: Mild kidney damage GFR 60-89 Stage 3: Moderate kidney damage GFR 30-59 Stage 4: Severe kidney damage GFR 15-29 Stage 5: Severe kidney damage GFR <15 ESRD - chronic treatment by dialysis or transplant Glucose [Mass/Vol] 104 mg/dL High 70 - 99 mg/dL [employer] Phone: Interpretation and review of laboratory results Abnormal [employer] Phone: Potassium [Moles/Vol] 4.7 mmol/L 3.7 - 5.3 mmol/L [employer] Phone: Protein [Mass/Vol] 7.1 g/dL 6.4 - 8.3 g/dL [employer] Phone: Sodium [Moles/Vol] 138 mmol/L 135 - 144 mmol/L [employer] Phone: Urea nitrogen [Mass/Vol] 13 mg/dL 8 - 23 mg/dL [employer] Phone: Lipid PanelOrdered By: Aye Nevarez on 04-22-2019 Cholesterol [Mass/Vol] 155 mg/dL <200 [employer] Phone: Comment on above: Cholesterol Guidelines: <200 Desirable 200-240 Borderline >240 Undesirable Cholesterol in HDL [Mass/Vol] 52 mg/dL >40 [employer] Phone: Comment on above: HDL Guidelines: <40 Undesirable 40-59 Borderline >59 Desirable Cholesterol in LDL [Mass/Vol] 80 mg/dL 0 - 130 mg/dL [employer] Phone: Comment on above: LDL Guidelines: <100 Desirable 100-129 Near to/above Desirable 130-159 Borderline >159 Undesirable Direct (measured) LDL and calculated LDL are not interchangeable tests. Cholesterol.total/Chol esterol in HDL [Mass ratio] 3 {ratio} <5 [employer] Phone: Triglyceride [Mass/Vol] 114 mg/dL <150 [employer] Phone: Comment on above: Triglyceride Guidelines: <150 Desirable 150-199 Borderline 200-499 High >499 Very high Based on AHA Guidelines for fasting triglyceride, January 2012. VLDL NOT REPORTED 1 - 30 mg/dL [employer] Phone: MRI BRAIN WO CONTRASTon Chronic microvascula r disease without acute intracranial abnormality. Scattered foci of blooming artifact on susceptibility weighted imaging that is nonspecific and may relate to hypertensive microangiopathy versus amyloid angiopathy. [employer] EXAMINATION: MRI OF THE BRAIN WITHOUT [...] The soft tissues demonstrate no acute abnormality. [facility] [place], [place], p[place] Incoming Radiant Results From [employer] - 02/12/2019 2:18 PM EST EXAMINATION: MRI [...] relate to hypertensive microangiopathy versus amyloid angiopathy. [place] TSH without Reflexon 019 TSH Qn 4.31 m[IU]/L [place] Comprehensive Metabolic Pane uriel 12-26-2018 Albumin [Mass/Vol] 3.8 g/dL 3.5 - 5.2 g/dL [place] Albumin/Globulin [Mass ratio] 1.3 {ratio} [place] ALP [Catalytic activity/Vol] 72 U/L 35 - 104 U/L [place] ALT [Catalytic activity/Vol] 9 U/L 5 - 33 U/L [place] Anion gap [Moles/Vol] 11 mmol/L 9 - 17 mmol/L [place] AST [Catalytic activity/Vol] 14 U/L <32 [place] Bilirubin Ql (U) 0.43 mg/dL 0.3 - 1.2 mg/dL [place] Bun/Cre Ratio 14 [place] Calcium [Mass/Vol] 9.5 mg/dL 8.6 - 10. 4 mg/dL [place] Chloride [Moles/Vol] 102 mmol/L 98 - 10 7 mmol/L [place] CO2 [Moles/Vol] 24 mmol/L 20 - 31 mmol/L [place] Creatinine [Mass/Vol] 0.74 mg/dL 0.5 - 0.9 mg/dL [place] GFR >60 >60 mL/min [place] GFR Non- >60 >60 mL/min [place] Glucose [Mass/Vol] 110 mg/dL High 70 - 99 mg/dL [place] Interpretation and review of laboratory results Abnormal [place] Potassium [Moles/Vol] 4.8 mmol/L 3.7 - 5.3 mmol/L [place] Protein [Mass/Vol] 6.8 g/dL 6.4 - 8.3 g/dL [place] Sodium [Moles/Vol] 137 mmol/L 135 - 144 mmol/L [place] Urea nitrogen [Mass/Vol] 10 mg/dL 8 - 23 mg/dL [place] Lipid Panelon 12-26-2018 Cholesterol [Mass/Vol] 175 mg/dL <200 [place] Comment on above: Cholesterol Guidelines: <200 Desirable 200-240 Borderline >240 Undesirable Cholesterol in HDL [Mass/Vol] 51 mg/dL >40 [place] Comment on above: HDL Guidelines: <40 Undesirable 40-59 Borderline >59 Desirable Cholesterol in LDL [Mass/Vol] 106 mg/dL 0 - 130 mg/dL [place] Comment on above: LDL Guidelines: <100 Desirable 100-129 Near to/above Desirable 130-159 Borderline >159 Undesirable Direct (measured) LDL and calculated LDL are not interchangeable tests. Cholesterol in VLDL [Mass/Vol] NOT REPORTED 1 - 30 mg/dL [place] Cholesterol.total/Chol esterol in HDL [Mass ratio] 3.4 {ratio} <5 [place] Triglyceride [Mass/Vol] 90 mg/dL <150 [place] Comment on above: Triglyceride Guidelines: <150 Desirable 150-199 Borderline 200-499 High >499 Very high Based on AHA Guidelines for fasting triglyceride, January 2012. Metabolic Panelon 12-26-2018 GFR/1.73 sq M predicted among non-blacks MDRD (S/P/Bld) [Vol rate/Area] [place] Comment on above: Stage 1: Some [...] body mass. Additional eGFR calculator available at: http://www.[employer]/multiple_crcl_2011.htm Vital Signs Date Time Vital Sign Value Performing Clinician Gasper hess 10-20-2020 18:30-0400 Body temperature 98.6 [degF] Radu Worrell MD Work Phone: [employer] Work Phone: 10-20-2020 18:30-0400 Diastolic blood pressure 53 mm[Hg] Radu Worrell MD Work Phone: [employer] Work Phone: 10-20-2020 18:30-0400 Heart rate 77 /min Radu Worrell MD Work Phone: [employer] Work Phone: 10-20-2020 18:30-0400 Respiratory rate 15 /min Radu Worrell MD Work Phone: [employer] Work Phone: 10-20-2020 18:30-0400 SaO2% (BldA) [Mass fraction] 96 % Radu Worrell MD Work Phone: [employer] Work Phone: 10-20-2020 18:30-0400 Systolic blood pressure 120 mm[Hg] Radu Worrell MD Work Phone: [employer] Work Phone: 10-20-2020 08:43-0400 Body height 149.9 cm Radu Worrell MD Work Phone: [employer] Work Phone: 10-20-2020 08:30-0400 Body mass index (BMI) [Ratio] 32.03 kg/m2 Radu Worrell MD Work Phone: [employer] Work Phone: 10-20-2020 08:30-0400 Body weight 71.94 kg Radu Worrell MD Work Phone: [employer] Work Phone: 08-05-2020 11:44-0400 Body temperature 98.8 [degF] Jungsik Kin DO Work Phone: [employer] Work Phone: 08-05-2020 11:44-0400 Diastolic blood pressure 66 mm[Hg] Jungsik Kin DO Work Phone: [employer] Work Phone: 08-05-2020 11:44-0400 Heart rate 80 /min Jungsik Kin DO Work Phone: [employer] Work Phone: 08-05-2020 11:44-0400 Respiratory rate 18 /min Jungsik Kin DO Work Phone: [employer] Work Phone: 08-05-2020 11:44-0400 SaO2% (BldA) [Mass fraction] 98 % Jungsik Kin DO Work Phone: [employer] Work Phone: 08-05-2020 11:44-0400 Systolic blood pressure 146 mm[Hg] NOWBOXsik Kin DO Work Phone: [employer] Work Phone: 08-04-2020 00:52-0400 Body height 149.9 cm NOWBOXsik Kin DO Work Phone: [employer] Work Phone: 08-04-2020 00:52-0400 Body mass index (BMI) [Ratio] 32.74 kg/m2 Jungsik Kin DO Work Phone: [employer] Work Phone: 08-04-2020 00:52-0400 Body weight 73.53 kg Jungsik Kin DO Work Phone: [employer] Work Phone: Encounters Encounter Date Encounter Type Care Provider Facility Start: 05-09-2023 End: 05-10-2023 [facility] Start: 07-18-2022 End: 07-19-2022 ambulatory KEVIN STEINER Facility:[facility]1 Start: 07-08-2022 End: 07-08-2022 ambulatory ANN ZHOU . Facility:[facility] Start: 09-23-2021 End: 09-24-2021 [facility] Start: 09-23-2021 End: 09-23-2021 Subsequent hospital visit by physician Aye Nevarez DO Work Phone: [facility] Start: 04-28-2021 End: 04-29-2021 [facility] Start: 10-19-2020 End: 10-21-2020 [facility] Start: 10-19-2020 End: 10-20-2020 Evaluation and management of inpatient Radu Worrell MD Work Phone: [facility] Comment on above: Generalized weakness (Primary Dx); Mild dehydration; Acute cystitis without hematuria Start: 08-04-2020 End: 08-05-2020 ambulatory [facility] Start: 08-04-2020 End: 08-05-2020 Subsequent hospital visit by physician Damián Sanderson DO Work Phone: [facility]A Start: 05-13-2020 End: 05-15-2020 Subsequent hospital visit by physician Latha [facility] Room [facility] Lab Comment on above: Pain of right upper arm; Swollen vein Start: 02-25-2020 End: 02-25-2020 Subsequent hospital visit by physician Aye Nevarez [facility] Start: 10-18-2019 End: 10-18-2019 Subsequent hospital visit by physician Aye Nevarez [facility] Start: 04-22-2019 End: 04-22-2019 Subsequent hospital visit by physician Aye Nevarez DO Work Phone: [facility] Start: 02-12-2019 End: 02-14-2019 Subsequent hospital visit by physician Latha Mri Scanner [facility] MRI Comment on above: Lewy body dementia w ithout behavioral disturbance (HCC) Start: 12-26-2018 End: 12-26-2018 Subsequent hospital visit by physician Aye Nevarez [facility] Procedures Date Procedure Procedure Detail Performing Clinician Start: 09-23-2021 Comprehensive metabo lic panel Aye Thomas Roque DO Work Phone: Start: 09-23-2021 Lipid panel Aye Swartz phani DO Work Phone: Start: 10-20-2020 Blood count [...] 05-13-2020 Dup-scan xtr veins unilateral/limited study Aye Thomas Roque Work Phone: Start: 02-25-2020 Blood count complete auto&auto difrntl wbc Aye Amadorse Work Phone: Start: 02-25-2020 Comprehensive metabo lic panel Aye Amadorse Work Phone: Start: 02-25-2020 Lipid panel Aye William Maxime sse Work Phone: Start: 10-18-2019 Blood count complete auto&auto difrntl wbc Aye Thomas Roque Work Phone: Start: 10-18-2019 Comprehensive metabo lic panel Aye Thomas Roque Work Phone: Start: 10-18-2019 Lipid panel Aye Thomas Maxime sse Work Phone: Start: 04-22-2019 Comprehensive metabo lic panel Aye Nevarez DO Work Phone: Start: 04-22-2019 Lipid panel Aye Swartz sse DO Work Phone: Start: 02-12-2019 Mri brain brain stem w/o contrast material Shubham Deshpande Work Phone: Start: 02-12-2019 Assay of thyroid stimulating hormone tsh Shubham Deshpande Work Phone: Start: 12-26-2018 Comprehensive metabo lic panel Aye Nevarez Work Phone: Start: 12-26-2018 Lipid panel Aye jeronimo Work Phone: Plan of Treatment Date Care Activity Detail Author Start: 04-28-2022 Lipid panel Lipids [facility] [employer] Start: 12-09-2021 Influenza vaccination Flu vacc ine (Season Ended[facility] Start: 10-20-2021 Creatinine measurement Creatinine mo [facility] [employer] Work Phone: Start: 10-20-2021 Potassium monitoring Potassium monit [facility] Work Phone: Start: 08-05-2021 Creatinine measurement Creatinine mo [facility] Work Phone: Start: 08-05-2021 Potassium monitoring Potassium monit [facility] Work Phone: Start: 02-24-2021 Creatinine measurement Creatinine mo [place] Start: 02-24-2021 Lipid panel Lipid screen [place], [place] Start: 02-24-2021 Potassium monitoring Potassium monit [place] Start: 12-09-2020 Influenza vaccination [facility] [employer] Work Phone: Start: 10-17-2020 Creatinine measurement Creatinine mo [place] Start: 10-17-2020 Lipid panel Lipid screen [place] Start: 10-17-2020 Potassium monitoring Potassium monit [place] Start: 04-22-2020 Creatinine measurement Creatinine mo nitoring [place], [place] Start: 04-22-2020 Lipid panel Lipid [place] Start: 04-22-2020 Potassium monitoring Potassium monit [place] Start: 12-27-2019 Creatinine monitoring Creatinine [place] Start: 12-27-2019 Lipid screen Lipid screen [place] Start: 12-27-2019 Potassium monitoring Potassium monit [place] Start: 12-10-2019 Influenza vaccination Flu vaccine (# 1) [place] Start: 07-18-2019 Creatinine monitoring Creatinine [place] Start: 07-18-2019 Potassium monitoring Potassium monit [place] Start: 12-09-2018 Influenza vaccination Flu vaccine (# 1) [place] Start: 09-30-2018 Annual Wellness Visi t (AWV) Annual Wellness Visit (AWV) [place] Start: 12-30-2004 DEXA (modify frequen cy per FRAX score) DEXA (modify frequency per FRAX score) [place] Start: 12-30-2004 Pneumococcal 65+ yea rs Vaccine (1 - PCV) Pneumococcal 65+ years Vaccine (1 - PCV) [facility] Start: 12-30-2004 Pneumococcal 65+ yea rs Vaccine (1 of 1 - PPSV23) Pneumococcal 65+ years Vaccine (1 of 1 - PPSV23) [place] Start: 12-30-2004 Pneumococcal 65+ yea rs Vaccine (1 of 2 - PCV13) Pneumococcal 65+ years Vaccine (1 of 2 - PCV13) [place] Start: 12-30-1994 Screening for osteoporosis DEXA (modify frequency per FRAX score) [facility] Start: 12-30-1989 Shingles Vaccine (1 of 2) Shingles Vaccine (1 of 2) [facility] Start: 12-30-1958 DTaP/Tdap/Td vaccine (1 - Tdap) DTaP/Tdap/Td vaccine (1 - Tdap) [facility] Start: 1955 COVID-19 Vaccine (1 of 2) COVID-19 Vaccine (1 of 2) [place] Start: 1955 COVID-19 Vaccine (1) COVID-19 Vaccin e (1) [employer] Phone: Start: 1951 COVID-19 Vaccine (1) COVID-19 Vaccin e (1) [employer] Phone: Start: 1951 Depression Screen Depression Screen [facility] [employer] Start: 12-30-1950 DTaP/Tdap/Td vaccine (1 - Tdap) DTaP/Tdap/Td vaccine (1 - Tdap) [employer] Phone: Start: 12-30-1944 COVID-19 Vaccine (1) COVID-19 Vaccin e (1) [facility] [employer] Start: 1940 Annual Wellness Visi t (AWV) Annual Wellness Visit (AWV) [facility] [employer] End: 08-06-2020 Basic metabolic 2000 panel - Serum or Plasma Basic Metabolic Panel Lab Routine Tomorrow AM for 1 Occurrences starting 08/06/2020 until 08/06/2020 [employer] Phone: Comment on above: Tomorrow AM for 1 Oc currences starting 08/06/2020 until 08/06/2020 End: 08-06-2020 CBC panel - Blood by Automated count CBC Lab Routine Tomorrow AM for 1 Occurrences starting 08/06/2020 until 08/06/2020 [employer] Phone: Comment on above: Tomorrow AM for 1 Oc currences starting 08/06/2020 until 08/06/2020 Culture, Blood 1 [employer] Work Phone: End: 02-12-2019 Lyme Ab Lyme Ab Lab Routine Once for 1 Occurrences starting 02/12/2019 until 02/12/2019 [facility] [place] Comment on above: Once for 1 Occurrenc es starting 02/12/2019 until 02/12/2019 Lyme Ab Lyme Ab Lab Rout ine 02/12/2019 12:32 PM EST [place] Oxygen therapy [[facility] Data Set] [employer] Work Phone: Comment on above: Daily until disconti nued starting 08/04/2020 Daily until disconti nued starting 10/19/2020 Vitamin B12 & Folate Vitamin B12 & Folate Lab Routine 02/12/2019 12:32 PM JAMILAH Roy ALKAR Payers Date Payer Category Payer Medicare MEDICARE MEDICAR E PART A AND B xxxxxxxxxxx 2015-Present [phone] [place] [address] xxxxxxxxxxx [id number] 2015 Medicare MEDICARE MEDICAR E PART A AND B [id number] 2015-Present [phone] [id number] [place] [id number] 2015 Medicare MEDICARE MEDICAR E PART A AND B [id number] 2015-Present [phone] [place] [address] [id number] 1959 Medicare [id number] 1940 Unknown [id number] 1940 Unknown [id number] 1940 Unknown [id number] 1940 Unknown [id number] 1940 Unknown [id number] 1939 Unknown [id number] 1940 Unknown [id number] Social History Date Type Detail Facility Start: 04-14-2015 End: 12-19-2017 Tobacco smoking status NHIS Former smoker [place], [place] History of tobacco use Cigarette Smoker [place] Start: 04-14-2015 End: 12-19-2017 Cigarettes smoked current (pack per day) - Reported [place] Start: 12-19-2017 Alcohol intake No [place], [place] Start: 11-25-2015 Tobacco Comment QUIT 1998 [place], [place] Start: 01-02-2017 Alcohol Comment very occasional [place], [place] Start: 1940 Sex Assigned At Not on file [place], [place] Start: 04-14-2015 End: 12-19-2017 Tobacco use and exposure Never used [place] Start: 12-19-2017 End: 10-19-2020 Alcohol intake Current non-drinker of alcohol (finding) [facility] [employer] Work Phone: Exposure to SARS-CoV -2 (event) Not sure [facility] History of Present illness Narrative 10-20-2020 Dahiana Kilgore RN - 10/20/2020 10:06 PM Dahiana Linn RN - 10/20/2020 9:00 PM Dahiana Linn RN - 10/20/2020 8:40 PM Yaquelin Bennett RN - 10/20/2020 8:35 PM EDT Note Date & Type Note Facility 10-20-2020 History of Present illness Narrative Patient's family arrived and clinical writer bagged up her personal items. AMA paperwork was signed by patient's POA. Beef Farmer took patient down via wheelchair. Beef Farmer educated patient and family about home safety. Patient is refusing to take all medications. Beef Farmer checked the locked cupboard for patient's personal items and gave her the bag of her clothes. Patient did not arrive in shoes. Beef Farmer also called quality assurance supervisor final to update her. Patient is refusing to sign AMA paperwork. Beef Farmer removed patient left AC IV at this time. Beef Farmer called and spoke with Miracle, patient's POA. Miracle states she will pick her up. Beef Farmer passed phone to patient so she could speak with her daughter. Patient insisted that she would start walking home even after speaking with her daughter. Security remains in the room with patient. Dr. Cerda returned the call. Beef Farmer updated him on the patient and the situation. Dr. Cerda states that can sign out AMA and to make sure she gets a ride home. Beef Farmer will call patient's POA. Security at bedside with patient at this time. Patient has agreed to sit in chair but is still persistent on walking home at this time if daughter does not come and pick up man patient. Security to remain at bedside. Beef Farmer has been in room with patient while [...] sit down on the bed or chair. Beef Farmer standing next to patient to ensure patient [...] in room phone multiple times of which clinical writer handed patient the phone. Patient accused daughter of lying to her when daughter attempted to explain that patient was in the hospital and why she was brought in. Patient hung up on daughter multiple times even after daughter calling back multiple times. Beef Farmer continued to request for patient to sit down for patient's safety of which patient got verbally aggressive with clinical writer. Beef Farmer to continue to be in room with patient til security arrives. Beef Farmer called security to sit with patient. Patient is verbally aggressive, swearing at staff. She states that she will walk home with or without her shoes while trying to shove past nursing staff. Patient is walking around the room and searching for her shoes and personal items. Patient is agitated and removed her IV. Beef Farmer was alerted when her bed alarm went off. Beef Farmer and second nurse cleaned her up and got her a new gown. Patient was confused and would not believe that she was in the hospital. Beef Farmer will call Dr. Cerda for an update and orders. Patient got up from the bed without using her call light. Beef Farmer responded to the bed alarm. When asked what she was doing, patient responded I'm walking out of here. Beef Farmer reminded patient that she was in the hospital and would not be able to leave during the night. Patient complied with this and got back in bed. Bed alarm was reset and patient was educated on using the call light again. Will continue to monitor and assess. Pt. Offered assistance with bathing, pt. Declines. Physical Therapy Facility/Department: [facility] MED SURG Daily Treatment Note NAME: Lilliana Patel : 1940 Date of Service: 10/20/2020 Discharge Recommendations: Continue to assess pending progress, Subacute/[facility] Facility, Home with Home health PT Assessment [...] will perform transfers and bed mobility with [place] Short term goal 3: Patient will tolerate [...] Time In 1120 Time Out [address] [place] [address] Met with Patient this a.m. and spoke with daughter, via telephone conversation, re: Patient discharge plans. Patient is an 79 year old , white female, admitted with a diagnosis of Inability to Walk. Patient has a secondary diagnosis of dementia noted. Discussed options for placement for rehab and Patient chooses 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 [facility] OK with daughter as well. Patient lives alone in [place]. She uses a walker, cane, wheelchair, shower [...] assistance with this expense. Referral made to [facility] this a.m. Telephone voicemail message left for their pool coordinator as well. Patient remains a 'Full Code' status and does not have medical directives currently on file. No further discharge planning needs are identified by Patient or her daughter at this point. [facility] to assist with discharge placement as appropriate [...] loss Fluid Accumulation: 1 - Mild Extremities Hard Metals Hand Engraver Strength: Not Performed Estimated Daily Nutrient Needs: Energy (kcal): 2691-0590 (15-18); Weight Used for Energy Requirements: Current Protein (g): 54-63 (1.2-1.4); Weight Used for Protein Requirements: [place] Fluid (ml/day): 1300+; Method Used for Fluid [...] lb 1.6 oz (73.5 kg) (08/04 encounter) [place] Body Weight: 95 lbs; % [place] Body Weight 166.9 % BMI: 32 BMI [...] No discharge needs at this time Contact: [id number] Images from the original note were not included. [facility] Herbal Suspension To avoid potential drug interactions with herbal and nutritional supplements, it is the policy of [facility] to suspend all orders for these products at the time of admission. Per hospital policy the following herbal/nutritional supplements were suspended during the hospital stay: Fish oil Thank you, Melina Santos RPH, 10/20/2020, 7:26 AM Beef Farmer to bedside, pt activated bed alarm. Upon [...] Bed alarm on. documented in this encounter [employer] Phone: History of Present illness Narrative 08-05-2020 Daniela Duggan OT - 08/05/2020 3:23 PM Jose Rai - 08/05/2020 3:20 PM Darlyn Copeland MD - 08/05/2020 1:[address], LD - 08/05/2020 10:43 AM EDT Note Date & Type Note Facility 08-05-2020 History of Present illness Narrative [facility] OCCUPATIONAL THERAPY MISSED TREATMENT NOTE [facility] 4A-19/019-A Date: 08/05/2020 Patient Name: Lilliana Patel CSN: [id number] : 1940 (79 y.o.) Gender: female REASON FOR MISSED TREATMENT: Upon 1st attempt, pt was sound asleep as she was given haldol and ativan early this morning, upon 2nd attempt, pt became very agitated refusing participation in OT. Will check back later as time allows. [facility] INPATIENT PHYSICAL THERAPY DAILY NOTE [facility] NEUROSCIENCES 4A - 4A-19/019-A Time In: 1451 Time Out: 1515 Timed Code Treatment Minutes: 24 Minutes Minutes: 24 Date: 08/05/2020 Patient Name: Lilliana Patel, Gender: female : 1940 (79 y.o.) Referring Practitioner: Jack Mensah MD Diagnosis: AMS (altered mental status) Additional Pertinent Hx: Per H&P 79-year-old female patient who is a direct admission from [facility] ED where she presented with acute [...] Ambulation Assistance: Independent Transfer Assistance: Independent Active Hydro[employer] Station Operator: No Additional Comments: pt mod I prior [...] Level Tile Device:No Device Gait Deviations: Slow Ssuu, Decreased Step Length Bilaterally and Decreased Gait [...] mod I for safe enter/exit of home snf goals Time Frame for rodent exterminator goals : NA due to short ELOS Following session, patient left in safe position with all fall risk precautions in place. Images from the original note were not included. Hospitalist Progress Note Patient: Lilliana Patel Unit/Bed:4A-19/019-A Date of : 1940 Acct: [id number] PCP: Aye Nevarez DO Date of Admission: [...] patient who is a direct admission from [facility] ED where she presented with acute [...] questions) Estimated Daily Nutrient Needs: Energy (kcal): 6747-9079 kcals (15-18 kcals/kg/day); Weight Used for Energy Requirements: Current(74 kg 08/04/20) Protein (g): 54-90 grams (1.2-2 grams/kg IBW/day); Weight Used for Protein Requirements: [place](45 kg (adjusted IBW)) Nutrition Related Findings: Pt [...] unable to state. Per EMR: 08/29/18: 225#) [place] Body Weight: 95 lbs; BMI: 32.7 Adjusted [...] wants us to leave her alone. [address]- [place] security left unit after patient safely back into bed. This nurse attempted to place new IV catheter as the previous on had been pulled. She attempted to swing at staff still remaining in the room. Patient received medication to help calm her down. Family called with no answer. [facility] INPATIENT PHYSICAL THERAPY EVALUATION [facility] 4A - 4A-19/019-A Time In: 1424 Time Out: 1449 Timed Code Treatment Minutes: 15 Minutes Minutes: 25 Date: 08/04/2020 Patient Name: Lilliana Patel, Gender: female : 1940 (79 y.o.) Referring Practitioner: Jack Mensah MD Diagnosis: AMS (altered mental status) Additional Pertinent Hx: Per H&P 79-year-old female patient who is a direct admission from [facility] ED where she presented with acute [...] Ambulation Assistance: Independent Transfer Assistance: Independent Active Hydroelectric Station Operator: No Additional Comments: pt mod I prior [...] Measures: Completed Dynamic Gait Total Score: 15 AM-[facility] Inpatient Mobility Raw Score : 18 AM-[facility] Inpatient T-Scale Score : 43.63 ASSESSMENT: Activity [...] mod I for safe enter/exit of home snf goals Time Frame for rodent exterminator goals : NA due to short ELOS Following session, patient left in safe position with all fall risk precautions in place. Twan Escobedo PT, DPT [id number] Pt's daughter, Margaret called for a pt update and plan of care. HIPPA code provided. All concerns and questions were addressed. This RN contacted Dr. Mensah with the hospitalist team via [employer] message about pt has requested to go home. This RN have tried to explain to her that she needs to have the MRI done and needs to see Dr. Verdugo. Pt has become agreeable for now but she has informed this RN she does not want to be sent to a correction. Patient admitted to 4A Room 19 via direct admit Complaint upon [...] declines family notification. documented in this encounter [employer] Phone: Clinical Note 08-04-2020 Note Date & [...] by: Gracie Kruse MD 08/04/20 Final result [facility] Clinical Note 08-04-2020 Note Date & [...] The brainstem and pituitary gland are normal. [employer] Phone: Evaluation note Note Date & Type Note Facility Evaluation note Diagnosis Seizure disorder (HCC)- Primary Unspecified epilepsy without mention of intractable epilepsy AMS (altered mental status) Essential hypertension Unspecified essential hypertension Bilateral carotid bruits TSH elevation Other abnormal blood chemistry documented in this encounter [employer] Phone: Evaluation note Note Date & Type Note Facility Evaluation note Diagnosis Inability to walk- Primary Difficulty in walking Generalized weakness Other malaise and fatigue Mild dehydration Dehydration Acute cystitis without hematuria Acute cystitis Essential hypertension Unspecified essential hypertension Dehydration documented in this encounter [employer] Phone: Hospital Discharge instructions Attachments Note Date & Type Note Facility Hospital Discharge instructions The following attachments cannot be sent through Care Everywhere.Dementia: General Info (Bulgarian)documented in this encounter [employer] Phone: Reason for Referral Status Reason Specialty Diagnoses / Procedures Referre d By Contact Referred To Contact [facility] Diagnoses Lewy body dementia without behavioral disturbance (HCC) Procedures MRI BRAIN WO CONTRAST Charlee Shubham [address] [place] [address] Status Reason Specialty Diagnoses / Procedures Referred By Contact Referred To Contact Closed Vascular Lab Diagnoses Pain of right upper arm Swollen vein Procedures VL DUP UPPER EXTREMITY VENOUS RIGHT RoqueAye stanley, DO [address] [place] [address] [facility] Vascular Lab [address] [place] [address] Assessments Diagnosis Lewy body dementia without behavioral disturbance (HCC) Dementia with Lewy bodies Diagnosis Pain of right upper arm Pain in limb Swollen vein Advance Directives No Advanced Directives Records FoundDocuments on File Type Date Recorded Patient Swimming Pool Maintenance Expl anation Advance Directives and Living Will Power of Grocery Clerk Selling Latest Code Status on File Code Status Date Activated Date Inactivated Comments Full Code 12/02/2015 1:49 PM 12/02/2015 5:12 PM Documents on File Type Date Recorded Patient Swimming Pool Maintenance Expl anation Advance Directives and Living Will Power of Grocery Clerk Selling Latest Code Status on File Code Status Date Activated Date Inactivated Comments Full Code 12/02/2015 1:49 PM 12/02/2015 5:12 PM Documents on File Type Date Recorded Patient Swimming Pool Maintenance Expl anation ACP-Advance Directive ACP-Power of Grocery Clerk Selling Documents on File Type Date Recorded Patient Swimming Pool Maintenance Expl anation ACP-Advance Directive ACP-Power of Grocery Clerk Selling Latest Code Status on File Code Status Date Activated Date Inactivated Comments Full Code 08/04/2020 3:05 AM Full Code 12/02/2015 1:49 PM 12/02/2015 5:12 PM Latest Code Status on File Code Status Date Activated Date Inactivated Comments Full Code 10/19/2020 10:31 PM Full Code 08/04/2020 3:05 AM 08/05/2020 7:26 PM Healthcare Agents on File Name Relationship Healthcare Agent [facility] p Communication Margaret Salcedo Child Primary Decision [...] bodies Procedures HC MRI BRAIN WO CTRST Shubham Deshpande [address] [place] [address] [facility] [address] [place] [address] Status Reason Specialty Diagnoses / Procedures Referred By Contact Referred To Contact Closed Vascular Lab Diagnoses Pain of right upper arm Swollen vein Procedures VL DUP UPPER EXTREMITY VENOUS RIGHT Aye Nevarez, DO [address] [place] [address] [facility] [address] [place] [address] Reason Comments Status Reason Specialty Diagnoses / Procedures Referre d By Contact Referred To Contact Diagnoses AMS (altered mental status) Altered Mental status Darien Ferrara MD [address] [place] [address] [facility] Reason Comments Fatigue patient started feel ing weak a couple days ago Status Reason Specialty Diagnoses / Procedures Referre d By Contact Referred To Contact Diagnoses Inability to walk Casandra Cerda MD [address] [facility], [facility] [place] [address] [facility] [place] CK1 Ordered Prescriptions (unrec ognized section and content) Prescription Sig Dispensed Refills Start Date End Da te QUEtiapine (SEROQUEL) 25 MG tablet Take 1 tablet by mouth nightly 60 tablet 3 08/05/2020 INFORMATION SOURCE (unrecogn ized section and content) DATE CREATED AUTHOR 08/12/2020 [facility] DATE CREATED AUTHOR AUTHOR'S ORGANIZ ATION 09/24/2021 [facility] DATE CREATED AUTHOR AUTHOR'S ORGANIZ ATION 07/20/2022 [facility] DATE CREATED AUTHOR AUTHOR'S ORGANIZ ATION 05/14/2023 [facility] Scheduled Active and Recently Administ ered Medications (unrecognized section and content) Medication Order 10/18/2020 10/19/2020 10/20/2020 cefTRIAXone (ROCEPHIN) 1000 mg IVPB in 50 mL D5W minibag (COMPLETED) 1,000 mg, Intravenous, ONCE, 1 dose, On Mon10/19/20 at 2014 2025 (New Bag - Provider: Sangeeta Bravo, HAFSA)2148 (Stopped - Provider: Sangeeta Bravo RN) donepezil (ARICEPT) tablet 10 mg 10 mg, Oral, 2 TIMES DAILY, First dose on Mon10/19/20 at 2300 2258 (Given - Provider: Maddi Núñez) 0842 (Given - Provider: Lisandra Johnson RN)2099 (Not Given - Provider: Dahiana Kilgore, HAFSA [...] Núñez) 0842 (Given - Provider: Lisandra Johnson, HAFSA)2099 (Not Given - Provider: Dahiana Kilgore, HAFSA - Reason: Patient/family refused) losartan (COZAAR) tablet 50 mg 50 mg, Oral, DAILY, First dose on Mon10/20/20 at 0900 0842 (Given - Provid er: Lisandra Johnson RN) QUEtiapine (SEROQUEL) tablet 25 mg 25 mg, Oral, NIGHTLY, First dose on Mon10/19/20 at 2300 2258 (Given - Provider: Maddi Núñez) 2100 (Not Given - Provider: Dahiana Kilgore RN - Reason: Patient/family refused) sertraline (ZOLOFT) tablet [...] Johnson RN)2100 (Not Given - Provider: Dahiana Kilgore RN - Reason: Loss of IV access) therapeutic [...] RN) 0902 (New Bag - Provider: Lisandra Johnson, HAFSA)1847 (New Bag - Provider: Dahiana Kilgore RN) [...] than 100.4 F (38 C), Starting on 10/19/20 at 2231
Maximum dose of acetaminophen is [...]
Care Teams (unrecognized sec tion and content) Watch Mechanic Relationship Specialty Start Date End Date Aye Nevarez, DO [address] [place] [address] PCP - General 01/02/12 FOR RECORDS PERTAINING [...] BE BASED ON THE PRIMARY CLINICAL RECORDS. [employer] [facility]. provides no warranty or guarantee of the accuracy or completeness of information in this document.
[2023-07-11 18:39] LABS: Influenza A\\H3 DETECTED (NOT DETECTE)
[2023-07-11 19:06] LABS: Magnesium 2.2 mg/dL (1.8-2.4)
[2023-07-11] MEDS: LACTATED RINGER'S SOLUTION 1,000 ML 100 ML IV (21:50)
[2023-07-11] MEDS: PANTOPRAZOLE SODIUM 40 MG VIAL IV (21:50)
[2023-07-11] MEDS: ENSURE HP 237 ML LIQUID PO (21:50)
[2023-07-11] MEDS: LEVOFLOXACIN IN DEXTROSE 5 % 750 MG/150 ML IV.SOLN 100 MG IV (21:50)
[2023-07-11] MEDS: PROSTAT 15 GM PROTEIN/100 CAL 30 ML LIQUID PACKET PO (21:50)
[2023-07-11] MEDS: IBUPROFEN 600 MG TABLET 400 MG PO (21:51)
[2023-07-11] MEDS: QUETIAPINE FUMARATE 25 MG TABLET PO (21:51)
[2023-07-11] MEDS: DONEPEZIL HCL 10 MG TABLET PO (21:51)
[2023-07-11] MEDS: LEVETIRACETAM 500 MG TABLET PO (21:51)
[2023-07-11] MEDS: MEMANTINE HCL 7 MG CAP XR 14 MG PO (21:51)
[2023-07-11] MEDS: ATORVASTATIN CALCIUM 10 MG TABLET PO (21:51)
[2023-07-11] MEDS: IPRATROPIUM/ALBUTEROL SULFATE 3 ML AMPUL.NEB IH (22:17)
[2023-07-12] VITALS (11 sets, daily range): BP systolic 115–163; BP diastolic 61–85; PULSE 61–93; TEMP 36.1–36.9; O2SAT 90–96
[2023-07-12] MEDS: PIPERACILLIN SODIUM/TAZOBACTAM 3.375 GM in 0.9 % SODIUM CHLORIDE 50 ML IV ×3 (00:03→16:41)
[2023-07-12 04:33] LABS: Basophils Percent Auto 0.3 % (0.2-2.0); Eosinophils Percent Auto 0.3 % (0.9-7.0); Hematocrit 29.6 % (36.0-48.0); Hemoglobin 9.2 g/dL (12.0-16.0); Immature Granulocytes Abs Auto 0.11 10^3/uL (0.00-0.03); Lymphocytes Absolute Auto 1.7 10^3/uL (1.2-3.8); Lymphocytes Percent Auto 15.9 % (20.5-60.0); Mean Corpuscular HGB Conc 31.1 g/dL (29.9-35.2); Mean Corpuscular Hemoglobin 30.4 pg (26.7-34.0); Mean Corpuscular Volume 97.7 fL (81.0-99.0); Mean Platelet Volume 8.6 fL (9.5-13.5); Monocytes Absolute Auto 0.7 10^3/uL (0.3-0.8); Monocytes Percent Auto 6.6 % (1.7-12.0); Neutrophils Absolute Auto 8.1 10^3/uL (1.4-6.5); Neutrophils Percent Auto 75.9 % (43.0-75.0); Platelet Count 374 10^3/uL (150-450); Red Blood Count 3.03 10^6/uL (4.20-5.40); Red Cell Distribution Width 12.7 % (11.0-15.0); White Blood Count 10.7 10^3/uL (4.0-11.0)
[2023-07-12] MEDS: IPRATROPIUM/ALBUTEROL SULFATE 3 ML AMPUL.NEB IH ×4 (04:33→22:30)
[2023-07-12 04:58] LABS: Alanine Aminotransferase 17 U/L (14-59); Albumin Globulin Ratio 0.4; Albumin Level 1.5 g/dL (3.4-5.0); Alkaline Phosphatase 69 U/L (46-116); Anion Gap 9.4; Aspartate Amino Transferase 26 U/L (15-37); BUN Creatinine Ratio 24.1; Bilirubin Total 0.4 mg/dL (0.2-1.0); Calcium 7.8 mg/dL (8.5-10.1); Carbon Dioxide 30.2 mmol/L (21.0-32.0); Chloride 106 mmol/L (98-107); Estimated GFR (African America >60 (>=60); Estimated GFR (Non-African Ame >60 (>=60); Globulin 3.9 g/dL; Glucose 86 mg/dL (74-106); Potassium 3.6 mmol/L (3.5-5.1); Sodium 142 mmol/L (136-145); Total Protein 5.4 g/dL (6.4-8.2); Troponin I High Sensitivity 23.4 pg/mL (4.0-51.3)
[2023-07-12] MEDS: LEVOTHYROXINE SODIUM 25 MCG TABLET 50 MCG PO (05:45)
--- NOTE | 2023-07-12 09:36 | SWNOTE1 ---
SW checked previous note from pt's last stay in mid June. Pt was previously at [facility] and when she came to hospital she needed rehab. She went from hospital to [place]. Pt came from [facility]. [facility]. SW to speak with pt's daughter in regards to discharge plans.
--- NOTE | 2023-07-12 09:37 | CM.NOTE ---
Rounds made with Dr. Cotto, discussed with pt plan of care and reason for admission to hospital. PT and OT will evaluate pt today for discharge planning. Pt was at [facility] for skilled therapy prior to this admission.
--- NOTE | 2023-07-12 09:42 | P.HP_ITS ---
HPI H&P: HPI History of Present Illness Chief complaint: Pneumonia Narrative: Patient presented from snf with increasing fatigue and cough. Found to have acute bilateral pneumonia with right pleural effusion and positive influenza A. Patient was admitted for workup and treatment of same. When I saw patient up on the medical surgical floor, she appeared to be lethargic some mild respiratory distress with some mild conversational dyspnea Opioid HPI Opioid Management Most Recent Opioid Data: Last Pain Scale 0 06/26/23 11:28 Last Pain Intensity 0 06/26/23 11:28 Last Pain Assessment 07/12/23 12:00 Last MAR Pain Assessment 07/12/23 09:55 Last ORT Total Score 0 07/11/23 18:52 Last ORT Risk Category Low Risk 07/11/23 18:52 Review of Systems ROS Status of ROS 10 or more systems reviewed and unremark able except as noted in history and below [facility] Medical History (Updated 07/11/23 @ 17:40 by Ryan Mattson MD) Stage 3a chronic kidney disease (CKD) ?N18.31 - Chronic kidney disease, stage 3a (ICD-10) Seizure disorder ?G40.909 - Epilepsy, unspecified, not intractable, without status epilepticus (ICD-10) Dementia ?F03.90 - Unspecified dementia, unspecified severity, without behavioral disturbance, psychotic disturbance, mood disturbance, and anxiety (ICD-10) Hypoxia ?R09.02 - Hypoxemia (ICD-10) COVID ?U07.1 - COVID-19 (ICD-10) Abscess ?L02.91 - Cutaneous abscess, unspecified (ICD-10) Contusion of hip ?S70.00XA - Contusion of unspecified hip, initial encounter (ICD-10) Fall ?W19.XXXA - Unspecified fall, initial encounter (ICD-10) Hypothyroidism ?E03.9 - Hypothyroidism, unspecified (ICD-10) Syncope due to orthostatic hypotension ?I95.1 - Orthostatic hypotension (ICD-10) Acute dehydration ?E86.0 - Dehydration (ICD-10) Schizophrenia ?F20.9 - Schizophrenia, unspecified (ICD-10) Depression ?F32.A - Depression, unspecified (ICD-10) Social History (Updated 07/11/23 @ 19:07 by Daisy Rock LPN) Within the past year, how often did you have a drink containing alcohol: never Within the past year, how often did you have six or more drinks on one occasion: never Score interpretation: A score less than 3 is consistent with normal alcohol consumption. Smoking status: Former smoker Second hand tobacco smoke exposure: No Non-prescribed substance use: denies use Previous occupational history: retired Highest level of school completed/degree received: high school graduate Are you now , , , , never or living with a partner: don't know In a typical week, how many times do you talk on the telephone with family, friends, or neighbors: twice per week How often do you get together with friends or relatives: twice per week How often do you attend yazidi or rastafari services: never Do you belong to any clubs or organizations such as yazidi groups unions, [employer] or athletic groups, or school groups: no Total score: 1 Score interpretation: A score of less than or equal to 1 indicates the most socially isolated. Little interest or pleasure in doing things: not at all Feeling down, depressed, or hopeless: not at all Feel stressed/tense/nervous/anxious/difficulty sleeping: not at all Do you think of yourself as: straight/heterosexual Gender Identity: female Meds Home Medications and Allergies Home Medications ?Medication ?Instructions ?Recorded ?Confirmed ?Type cyanocobalamin (vitamin B-12) 1,000 mcg PO DAILY 09/19/22 07/11/23 History 1,000 mcg capsule donepezil 10 mg tablet 10 mg PO BID 09/19/22 07/11/23 History ferrous sulfate 325 mg (65 mg 325 mg PO DAILY 09/19/22 07/11/23 History iron) tablet hyoscyamine sulfate 0.125 mg 0.125 mg PO Q4H PRN secretions 09/19/22 07/11/23 History tablet (Levsin) ibuprofen 600 mg tablet 400 mg PO Q12H pain 09/19/22 07/11/23 History levetiracetam 500 mg tablet 500 mg PO Q12H 09/19/22 07/11/23 History (Keppra) memantine 5 mg tablet 5 mg PO BID 09/19/22 07/11/23 History quetiapine 25 mg tablet (Seroquel) 25 mg PO QPM 09/19/22 07/11/23 History sertraline 100 mg tablet (Zoloft) 100 mg PO DAILY 09/19/22 07/11/23 History simvastatin 20 mg tablet 20 mg PO QPM 09/19/22 07/11/23 History acetaminophen 325 mg tablet (Aphen) 650 mg PO Q6H PRN fever or pain 06/25/23 07/11/23 History fludrocortisone 0.1 mg tablet 0.1 mg PO DAILY 06/25/23 07/11/23 History levothyroxine 50 mcg tablet 50 mcg PO DAILY 06/25/23 07/11/23 History loperamide 2 mg capsule 2 mg PO Q12H PRN loose stool 06/25/23 07/11/23 History ondansetron HCl 4 mg tablet 4 mg PO Q6H PRN nausea and vomiting 06/25/23 07/11/23 History albuterol sulfate 2.5 mg/0.5 mL 2.5 mg inhalation Q4H PRN 07/11/23 07/11/23 History solution for nebulization shortness of breath or wheezing ipratropium 0.5 mg-albuterol 3 mg 3 ml inhalation BID 07/11/23 07/11/23 History (2.5 mg base)/3 mL nebulization soln lorazepam 0.5 mg tablet (Ativan) 0.5 mg PO Q12H PRN agitation 07/11/23 07/11/23 History melatonin 5 mg capsule 5 mg PO .QHS 07/11/23 07/11/23 History Allergies Allergy/AdvReac Type Severity Reaction Status Date / Time No Known Drug Allergies Allergy Verified 07/11/23 16:25 Exam Constitutional Vital Signs, click to edit/add: Last Vital Signs Temp 97.2 F L 07/12/23 08:34 Pulse 65 07/12/23 08:34 Resp 16 07/12/23 08:34 BP 115/74 07/12/23 08:34 Pulse Ox 92 L 07/12/23 08:34 O2 Del Method Nasal Cannula 07/12/23 08:34 O2 Flow Rate 3 07/12/23 08:34 Documenting provider has reviewed patient's vital signs: yes Common normals: no apparent distress (Mild respiratory distress) Chest Common normals: inspection of chest normal Respiratory Common normals: no retractions and no use of accessory muscles; abnormal respiratory effort Auscultation: rhonchi and wheezes Cardio Common normals: regular rate and regular rhythm GI Common normals: Normal to inspection, nondistended, normoactive bowel sounds present, soft to palpation and non-tender Extremity Common normals: normal to inspection and no clubbing, cyanosis or edema Results Labs Labs: Short CBC 07/11/23 07/12/23 Range/Units 15:24 04:06 WBC 10.0 10.7 (4.0-11.0) 10^3/uL Hgb 10.2 L 9.2 L (12.0-16.0) g/dL Hct 31.7 L 29.6 L (36.0-48.0) % Plt Count 451 H 374 (150-450) 10^3/uL BMP 07/11/23 07/12/23 15:24 04:06 Sodium 141 142 Potassium 3.6 3.6 Chloride 104 106 Carbon Dioxide 30.4 30.2 BUN 13.0 14.0 Creatinine 0.63 0.58 Glucose 100 86 Calcium 7.9 L 7.8 L Liver Function 07/12/23 Range/Units 04:06 Total Bilirubin 0.4 (0.2-1.0) mg/dL AST 26 (15-37) U/L ALT 17 (14-59) U/L Alkaline Phosphatase 69 (46-116) U/L Albumin 1.5 L (3.4-5.0) g/dL Urine 07/11/23 Range/Units 15:28 Urine Color Yellow (YELLOW) Urine Clarity Clear (CLEAR) Urine pH 6.0 (5.0-9.0) Ur Specific [place] 1.025 (1.005-1.025) Urine Protein 30 A (NEG/TRACE) mg/dL Urine Glucose (UA) Negative (NEGATIVE) mg/dL Assessment and Plan Assessment and Plan (1) Pneumonia: Plan Hypoxia with O2 saturation of 90% on 3 L, normal white blood cell count but left shift consistent with bacterial process, this is secondary to bilateral lower lobe pneumonia and influenza A with an acute exacerbation of COPD. With a left shift consistent with bacterial process Place patient on IV antibiotics. Frequent aerosol treatments. Try to obtain sputum culture. Blood culture pending. With patient coming from a snf high risk patient, treating as healthcare associated pneumonia. Tamiflu and steroids for the influenza A Acute UTI based on laboratory results-E. coli in the past but fairly sensitive organism, continue with antibiotics for the above should cover that Pleural effusion-so far is small, may repeat chest x-ray, troponins are negative. Iron deficiency anemia-monitor daily Dementia-continue with medications Hypothyroidism-continue with current medications Severe protein calorie malnutrition-diet supplement Inpatient statement: Patient with significant hypoxia at 90% on 3 L secondary to pneumonia secondary to healthcare associated pneumonia causing acute exacerbation of COPD. Hospitalization likely to last 3 to 4 days for medically necessary treatment. Inpatient status.
[2023-07-12] MEDS: LACTATED RINGER'S SOLUTION 1,000 ML 100 ML IV (09:54)
[2023-07-12] MEDS: SERTRALINE HCL 100 MG TABLET PO (09:55)
[2023-07-12] MEDS: FERROUS SULFATE 325 MG TABLET PO (09:55)
[2023-07-12] MEDS: IBUPROFEN 600 MG TABLET 400 MG PO ×2 (09:55→21:30)
[2023-07-12] MEDS: DONEPEZIL HCL 10 MG TABLET PO ×2 (09:56→21:30)
[2023-07-12] MEDS: PROSTAT 15 GM PROTEIN/100 CAL 30 ML LIQUID PACKET PO ×2 (09:56→21:30)
[2023-07-12] MEDS: ENSURE HP 237 ML LIQUID PO ×2 (09:56→21:29)
[2023-07-12] MEDS: FLUDROCORTISONE ACETATE 0.1 MG TABLET 0.100000000000000006 MG PO (09:56)
[2023-07-12] MEDS: OSELTAMIVIR PHOSPHATE 75 MG CAPSULE PO (09:56)
[2023-07-12] MEDS: LEVETIRACETAM 500 MG TABLET PO ×2 (09:56→21:30)
[2023-07-12] MEDS: METHYLPREDNISOLONE SOD SUCC PF 125 MG/2 ML VIAL 60 MG IVP ×3 (09:58→21:29)
--- NOTE | 2023-07-12 14:17 | SWNOTE1 ---
LEW spoke to pt's daughter, pt is not able to answer questions at this time. Pt's daughter did voice she liked [facility] for pt, but she is not paying to hold the bed at facility. She voiced she would like pt to return to [facility] at discharge, she was not participating in therapy at the [facility]. Daughter stated the [facility] said they would work out something for there therapy to come to [facility]. LEW expressed that LEW will speak with Lana at [facility] to coordinate Home Health and see what company they use. Pt's daughter in agreement. LEW attempted to call Lana at [facility], but nobody answered the phone.
--- NOTE | 2023-07-12 14:40 | SWNOTE1 ---
LEW spoke to Fátima at [facility], school administrator, and they spoke with family earlier and they are aware of her returning to [place] and are ready for her. LEW asked if they wanted any updates faxed over and she voiced not at this time. LEW asked what company they would prefer and she voiced [facility]. Referral sent to [facility]. Referral included face sheet, ED note, H&P, and PT/OT notes. Plan at discharge is for pt to return to [facility].
--- NOTE | 2023-07-12 14:53 | SWNOTE1 ---
Important Message from Medicare reviewed and discussed with patient's daughter. Daughter verbalized understanding and signed the form. Original given to pt's daughter and copy placed in patient?s chart.
[2023-07-12] MEDS: PANTOPRAZOLE SODIUM 40 MG VIAL IV (21:29)
[2023-07-12] MEDS: QUETIAPINE FUMARATE 25 MG TABLET PO (21:30)
[2023-07-12] MEDS: ATORVASTATIN CALCIUM 10 MG TABLET PO (21:30)
[2023-07-12] MEDS: OSELTAMIVIR PHOSPHATE 30 MG CAPSULE PO (21:30)
[2023-07-12] MEDS: MEMANTINE HCL 7 MG CAP XR 14 MG PO (21:30)
[2023-07-13] VITALS (9 sets, daily range): BP systolic 122–142; BP diastolic 66–83; PULSE 66–83; TEMP 36.3–36.7; O2SAT 86–95
[2023-07-13] MEDS: IPRATROPIUM/ALBUTEROL SULFATE 3 ML AMPUL.NEB IH ×4 (05:22→22:40)
[2023-07-13 05:30] LABS: Basophils Percent Auto 0.2 % (0.2-2.0); Eosinophils Absolute Auto 0.1 10^3/uL (0.0-0.7); Eosinophils Percent Auto 0.5 % (0.9-7.0); Hematocrit 30.5 % (36.0-48.0); Hemoglobin 9.8 g/dL (12.0-16.0); Immature Granulocytes Abs Auto 0.13 10^3/uL (0.00-0.03); Lymphocytes Absolute Auto 1.3 10^3/uL (1.2-3.8); Lymphocytes Percent Auto 10.3 % (20.5-60.0); Mean Corpuscular HGB Conc 32.1 g/dL (29.9-35.2); Mean Corpuscular Hemoglobin 30.7 pg (26.7-34.0); Mean Corpuscular Volume 95.6 fL (81.0-99.0); Mean Platelet Volume 9.1 fL (9.5-13.5); Monocytes Absolute Auto 0.4 10^3/uL (0.3-0.8); Monocytes Percent Auto 3.5 % (1.7-12.0); Neutrophils Absolute Auto 10.5 10^3/uL (1.4-6.5); Neutrophils Percent Auto 84.5 % (43.0-75.0); Platelet Count 409 10^3/uL (150-450); Red Blood Count 3.19 10^6/uL (4.20-5.40); Red Cell Distribution Width 12.5 % (11.0-15.0); White Blood Count 12.5 10^3/uL (4.0-11.0)
[2023-07-13 06:01] LABS: Alanine Aminotransferase 17 U/L (14-59); Albumin Globulin Ratio 0.4; Albumin Level 1.7 g/dL (3.4-5.0); Alkaline Phosphatase 79 U/L (46-116); Anion Gap 10.6; Aspartate Amino Transferase 26 U/L (15-37); BUN Creatinine Ratio 27.3; Bilirubin Total 0.3 mg/dL (0.2-1.0); Calcium 8.1 mg/dL (8.5-10.1); Chloride 106 mmol/L (98-107); Estimated GFR (African America >60 (>=60); Estimated GFR (Non-African Ame >60 (>=60); Globulin 4.2 g/dL; Glucose 143 mg/dL (74-106); Potassium 3.6 mmol/L (3.5-5.1); Sodium 140 mmol/L (136-145); Total Protein 5.9 g/dL (6.4-8.2)
[2023-07-13] MEDS: LEVOTHYROXINE SODIUM 25 MCG TABLET 50 MCG PO (06:13)
[2023-07-13] MEDS: FERROUS SULFATE 325 MG TABLET PO (08:36)
[2023-07-13] MEDS: OSELTAMIVIR PHOSPHATE 30 MG CAPSULE PO ×2 (08:36→21:05)
[2023-07-13] MEDS: DONEPEZIL HCL 10 MG TABLET PO ×2 (08:36→21:05)
[2023-07-13] MEDS: FLUDROCORTISONE ACETATE 0.1 MG TABLET 0.100000000000000006 MG PO (08:36)
[2023-07-13] MEDS: SERTRALINE HCL 100 MG TABLET PO (08:36)
[2023-07-13] MEDS: ENSURE HP 237 ML LIQUID PO ×2 (08:36→21:05)
[2023-07-13] MEDS: PROSTAT 15 GM PROTEIN/100 CAL 30 ML LIQUID PACKET PO ×2 (08:36→21:05)
--- NOTE | 2023-07-13 09:22 | SWNOTE1 ---
LEW spoke to Lana at [facility], she came up and saw pt this morning and feels she does not look very good. Lana is going to speak with daughter about possibly getting hospice involved versus home health. Lana voiced that when pt comes back she will need various equipment and pt's daughter will have to pay for it and it would be more beneficial to have hospice involved. Lana also stated she is not likely to participate in therapy for long so hospice may be more beneficial. She stated pt can always graduate from hospice if she improves.
--- NOTE | 2023-07-13 09:43 | P.PN_ITS ---
Progress Note: Subjective Subjective Interval history: Patient up in bed this morning, is awake. Just finished eating some for breakfast. Exam Constitutional Vital Signs, click to edit/add: Last Vital Signs Temp 97.7 F 07/13/23 07:47 Pulse 82 07/13/23 07:47 Resp 18 07/13/23 07:47 BP 129/70 07/13/23 07:47 Pulse Ox 91 L 07/13/23 07:47 O2 Del Method Room Air 07/13/23 07:47 O2 Flow Rate 3 07/13/23 05:25 Documenting provider has reviewed patient's vital signs: yes Common normals: no apparent distress (Mild respiratory distress) Chest Common normals: inspection of chest normal Respiratory Common normals: no retractions and no use of accessory muscles; abnormal respiratory effort Auscultation: rhonchi and wheezes Cardio Common normals: regular rate and regular rhythm GI Common normals: Normal to inspection, nondistended, normoactive bowel sounds present, soft to palpation and non-tender Extremity Common normals: normal to inspection and no clubbing, cyanosis or edema Progress Note: Objective Labs Labs: Short CBC 07/13/23 Range/Units 04:42 WBC 12.5 H (4.0-11.0) 10^3/uL Hgb 9.8 L (12.0-16.0) g/dL Hct 30.5 L (36.0-48.0) % Plt Count 409 (150-450) 10^3/uL BMP 07/13/23 04:42 Sodium 140 Potassium 3.6 Chloride 106 Carbon Dioxide 27.0 BUN 15.0 Creatinine 0.55 Glucose 143 H Calcium 8.1 L Liver Function 07/13/23 Range/Units 04:42 Total Bilirubin 0.3 (0.2-1.0) mg/dL AST 26 (15-37) U/L ALT 17 (14-59) U/L Alkaline Phosphatase 79 (46-116) U/L Albumin 1.7 L (3.4-5.0) g/dL Progress Note: A&P Assessment and Plan (1) Pneumonia: Plan On admission : Altered mental status with hypoxia with O2 saturation of 90% on 3 L, normal white blood cell count but left shift consistent with bacterial process, this is secondary to bilateral lower lobe pneumonia and influenza A with an acute exacerbation of COPD. Place patient on IV antibiotics. Frequent aerosol treatments. Try to obtain sputum culture. Blood culture pending. With patient coming from a [place] [facility] high risk patient, treating as healthcare associated pneumonia. Tamiflu and steroids for the influenza A. Some improvement, patient confused at nighttime and continues to pull out IV, with the improvement will change patient to oral agents and see if she can maintain improvement between today and tomorrow Acute UTI based on laboratory results-check on culture later today Pleural effusion-so far is small, may repeat chest x-ray, troponins are n egative. Can follow-up as an outpatient Iron deficiency anemia-monitor daily Dementia-continue with medications Hypothyroidism-continue with current medications Thrombocythemia-improved today. Likely secondary to the above infectious process Severe protein calorie malnutrition-diet supplement Inpatient statement: Patient with significant hypoxia at 90% on 3 L secondary to pneumonia secondary to healthcare associated pneumonia causing acute exacerbation of COPD. Hospitalization likely to last 3 to 4 days for medically necessary treatment. Inpatient status. ?
[2023-07-13] MEDS: LEVETIRACETAM 500 MG TABLET PO ×2 (11:45→21:05)
[2023-07-13] MEDS: PREDNISONE 20 MG TABLET 40 MG PO (11:45)
[2023-07-13] MEDS: AZITHROMYCIN 250 MG TABLET 500 MG PO (11:46)
[2023-07-13] MEDS: IBUPROFEN 600 MG TABLET 400 MG PO ×2 (11:46→21:06)
[2023-07-13] MEDS: CEFDINIR 300 MG CAPSULE 600 MG PO (11:46)
--- NOTE | 2023-07-13 12:22 | SWNOTE1 ---
SW spoke with pt's daughter and she is in agreement and would like [facility] to come and assess. Referral sent to [facility]. Referral included face sheet, ED note, H&P, provider notes, case management report, wound consult, nursing notes, diagnostic imaging, med list, and hospice order.
--- NOTE | 2023-07-13 12:32 | PT.DAILY ---
Physical Therapy Daily Note PT Daily Note/Assess Start: 07/12/23 08:59 Freq: Status: Active Protocol: Document 07/13/23 10:35 MYCHAL (Rec: 07/13/23 12:32 MYCHAL [id number]) Physical Therapy Daily Note/Assessment Time In/Time Out Time In 10:35 Time Out 10:52 Subjective Subjective Reports feeling better today, agrees to get up in chair. Although appears confused, once in chair asks if we will put her back to bed once we take her to her new room. Explained that she was just going to sit up in the chair for bit, and she said okay. Therapeutic Activity Time Therapeutic Activity Minutes (minutes) 17 Therapeutic Activity Units 1 Therapeutic Activity Treatment Bed Mobility Ability Moderate Assist Chair Transfer Ability Moderate Assist Therapeutic Activity Comments AP and heel slides completed prior to bed mobility and transfers. Supine to sit mod assist to bring upper trunk into seated position. Sit stand x1 with mod assist at RW . Static stand for 30 seconds, patient began coughing and needed to sit. Sit to stand x1 with min assist. Static stand for 30 seconds then able to ambulate 4 steps over to chair with heavy verbal cues on how to get to chair. Once in chair patient able to position self. Total Physical Therapy Time Total Therapy Minutes 17 Total Physical Therapy Units 1 Summary Daily Note Summary Improved ability with bed mobility and transfers today.
--- NOTE | 2023-07-13 14:05 | SWNOTE1 ---
SW called [facility] and they have received referral and are reviewing.
--- NOTE | 2023-07-13 14:28 | SWNOTE1 ---
LEW, nursing, and Genie from [facility] met and spoke about plan for pt. Genie called and spoke with daughter, she is going to leave pamphlets in room for daughter and the plan is for [facility] nurse to come in morning to do evaluation and paperwork. LEW did let Hospice know that she will need oxygen at [facility], LEW did call and confirm with [facility] that pt does not have it at [place]. Genie will pass this on and pt will also need hospital bed at [facility]. LEW did ask Genie if they can have all that delivered tomorrow. She voiced they can get it there within 4 hours. At this time plan is to have [facility] complete assessment tomorrow and get everything set up for her at [facility] for when she is discharged.
[2023-07-13] MEDS: OMEPRAZOLE 40 MG CAPSULE.DR PO (16:18)
[2023-07-13] MEDS: ATORVASTATIN CALCIUM 10 MG TABLET PO (21:05)
[2023-07-13] MEDS: MEMANTINE HCL 7 MG CAP XR 14 MG PO (21:05)
[2023-07-13] MEDS: QUETIAPINE FUMARATE 25 MG TABLET PO (21:05)
[2023-07-14] VITALS (8 sets, daily range): BP systolic 129–141; BP diastolic 63–74; PULSE 68–85; TEMP 36.1–36.7; O2SAT 90–98; BMI 26.1
[2023-07-14] MEDS: IPRATROPIUM/ALBUTEROL SULFATE 3 ML AMPUL.NEB IH ×3 (05:36→16:56)
[2023-07-14 06:08] LABS: Basophils Percent Auto 0.2 % (0.2-2.0); Eosinophils Absolute Auto 0.1 10^3/uL (0.0-0.7); Eosinophils Percent Auto 0.7 % (0.9-7.0); Hematocrit 28.4 % (36.0-48.0); Hemoglobin 9.1 g/dL (12.0-16.0); Immature Granulocytes Abs Auto 0.26 10^3/uL (0.00-0.03); Immature Granulocytes Pct Auto 1.6 % (0.0-0.5); Lymphocytes Absolute Auto 1.9 10^3/uL (1.2-3.8); Lymphocytes Percent Auto 11.4 % (20.5-60.0); Mean Corpuscular Hemoglobin 30.6 pg (26.7-34.0); Mean Corpuscular Volume 95.6 fL (81.0-99.0); Mean Platelet Volume 9.3 fL (9.5-13.5); Monocytes Percent Auto 6.3 % (1.7-12.0); Neutrophils Absolute Auto 13.1 10^3/uL (1.4-6.5); Neutrophils Percent Auto 79.8 % (43.0-75.0); Platelet Count 433 10^3/uL (150-450); Red Blood Count 2.97 10^6/uL (4.20-5.40); Red Cell Distribution Width 12.6 % (11.0-15.0); White Blood Count 16.4 10^3/uL (4.0-11.0)
[2023-07-14 06:31] LABS: Alanine Aminotransferase 21 U/L (14-59); Albumin Globulin Ratio 0.4; Albumin Level 1.6 g/dL (3.4-5.0); Alkaline Phosphatase 72 U/L (46-116); Anion Gap 8.6; Aspartate Amino Transferase 31 U/L (15-37); BUN Creatinine Ratio 37.5; Bilirubin Total 0.2 mg/dL (0.2-1.0); Calcium 8.6 mg/dL (8.5-10.1); Carbon Dioxide 28.6 mmol/L (21.0-32.0); Chloride 108 mmol/L (98-107); Estimated GFR (African America >60 (>=60); Estimated GFR (Non-African Ame >60 (>=60); Globulin 3.8 g/dL; Glucose 102 mg/dL (74-106); Potassium 3.2 mmol/L (3.5-5.1); Sodium 142 mmol/L (136-145); Total Protein 5.4 g/dL (6.4-8.2)
[2023-07-14] MEDS: LEVOTHYROXINE SODIUM 25 MCG TABLET 50 MCG PO (06:44)
--- NOTE | 2023-07-14 08:10 | SWNOTE1 ---
[facility] meeting with [facility] and daughter at 2:00. They were going to have all equipment, oxygen/hospital bed, to [facility] today for pt to return to [place].
[2023-07-14] MEDS: LEVOFLOXACIN 750 MG TABLET PO (08:13)
[2023-07-14] MEDS: OMEPRAZOLE 40 MG CAPSULE.DR PO ×2 (08:13→16:12)
--- NOTE | 2023-07-14 08:57 | CM.NOTE ---
Rounds made with Dr. Cotto. Potential plan for discharge later today.
[2023-07-14] MEDS: PROSTAT 15 GM PROTEIN/100 CAL 30 ML LIQUID PACKET PO (09:43)
[2023-07-14] MEDS: ENSURE HP 237 ML LIQUID PO (09:43)
[2023-07-14] MEDS: PREDNISONE 20 MG TABLET 40 MG PO (09:44)
[2023-07-14] MEDS: SERTRALINE HCL 100 MG TABLET PO (09:44)
[2023-07-14] MEDS: FERROUS SULFATE 325 MG TABLET PO (09:44)
[2023-07-14] MEDS: LEVETIRACETAM 500 MG TABLET PO (09:44)
[2023-07-14] MEDS: IBUPROFEN 400 MG TABLET PO (09:44)
[2023-07-14] MEDS: POTASSIUM CHLORIDE 10 MEQ ER TABLET PO (09:44)
[2023-07-14] MEDS: DONEPEZIL HCL 10 MG TABLET PO (09:44)
[2023-07-14] MEDS: OSELTAMIVIR PHOSPHATE 30 MG CAPSULE PO (09:44)
[2023-07-14] MEDS: FLUDROCORTISONE ACETATE 0.1 MG TABLET 0.100000000000000006 MG PO (09:45)
--- NOTE | 2023-07-14 09:53 | P.DS_ITS ---
DS: Providers Provider Date of admission: 07/11/23 18:24 Primary care physician: AYE RODRIGUEZ Consults: 07/11/23 18:24 Consult to Pharmacy Routine Consulting Provider: Reason for consultation: Please [place] me when Med Rec is Updated Has provider been notified: No Occupational Therapy Eval and Treat Routine Reason for consultation: Only if needed for Rehab Has provider been notified: No Physical Therapy Eval and Treat Routine Reason for consultation: Eval and Treat Has provider been notified: No 07/13/23 Consult to Hospice Routine Reason for consultation: [place] 07/14/23 09:48 Consult to Hospice Routine Reason for consultation: terminal - FTT DS: Diagnosis Discharge Diagnosis (1) Pneumonia: Plan On admission : Altered mental status with hypoxia with O2 saturation of 90% on 3 L, normal white blood cell count but left shift consistent with bacterial process, this is secondary to bilateral lower lobe pneumonia and influenza A with an acute exacerbation of COPD. Place patient on IV antibiotics. Frequent aerosol treatments. Try to obtain sputum culture. Blood culture pending. With patient coming from a correction high risk patient, treating as healthcare associated pneumonia. Tamiflu and steroids for the influenza A. Some improvement, patient confused at nighttime and continues to pull out IV, with the improvement will change patient to oral agents and see if she can maintain improvement between today and tomorrow Acute UTI based on laboratory results-check on culture later today Pleural effusion-so far is small, may repeat chest x-ray, troponins are negative. Can follow-up as an outpatient Iron deficiency anemia-monitor daily Dementia-continue with medications Hypothyroidism-continue with current medications Thrombocythemia-improved today. Likely secondary to the above infectious process Severe protein calorie malnutrition-diet supplement Inpatient statement: Patient with significant hypoxia at 90% on 3 L secondary to pneumonia secondary to healthcare associated pneumonia causing acute exacerbation of COPD. Hospitalization likely to last 3 to 4 days for medically necessary treatment. Inpatient status. ? ? DS: Summary Hospital Course Hospital Course: Patient sent to the emergency room with increasing weakness, confusion, found to help healthcare acquired pneumonia. Patient was treated with IV antibiotics. She kept pulling out her IV, so was changed to oral agents, her weakness somewhat improved, she is awake and talkative this morning, but her white blood cell count is higher as we did change her antibiotics this morning. She is off her supplemental oxygen this morning family discussed case with hospice and she will sign on with hospice and go to assisted living in [facility]. Medications see list. Follow-up with PCP and hospice. Time Spent with Patient Time attestation: Total time spent providing and/or coordinating discharge services: Exam Constitutional Vital Signs, click to edit/add: Last Vital Signs Temp 97.0 F L 07/14/23 08:20 Pulse 84 07/14/23 08:20 Resp 18 07/14/23 08:20 BP 134/67 07/14/23 08:20 Pulse Ox 93 L 07/14/23 08:20 O2 Del Method Nasal Cannula 07/14/23 08:20 O2 Flow Rate 3 07/14/23 08:20 Documenting provider has reviewed patient's vital signs: yes Common normals: no apparent distress (Mild respiratory distress) Chest Common normals: inspection of chest normal Respiratory Common normals: no retractions and no use of accessory muscles; abnormal respiratory effort Auscultation: rhonchi and wheezes Cardio Common normals: regular rate and regular rhythm GI Common normals: Normal to inspection, nondistended, normoactive bowel sounds present, soft to palpation and non-tender Extremity Common normals: normal to inspection and no clubbing, cyanosis or edema DS: Data Data Completed and Pending Labs on day of discharge: Labs from last 24 hours 07/14/23 04:54 WBC 16.4 H RBC 2.97 L Hgb 9.1 L Hct 28.4 L MCV 95.6 MCH 30.6 MCHC 32.0 RDW 12.6 Plt Count 433 MPV 9.3 L Neut % (Auto) 79.8 H Lymph % (Auto) 11.4 L [place] % (Auto) 6.3 Eos % (Auto) 0.7 L Baso % (Auto) 0.2 Neut # (Auto) 13.1 H Lymph # (Auto) 1.9 [place] # (Auto) 1.0 H Eos # (Auto) 0.1 Baso # (Auto) 0.0 Abs Immat Gran (auto) 0.26 H Imm/Tot Granulo (auto) 1.6 H Sodium 142 Potassium 3.2 L Chloride 108 H Carbon Dioxide 28.6 Anion Gap 8.6 BUN 21.0 H Creatinine 0.56 Est GFR ( Amer) >60 Est GFR (Non-Af Amer) >60 BUN/Creatinine Ratio 37.5 Glucose 102 Calcium 8.6 Total Bilirubin 0.2 AST 31 ALT 21 Alkaline Phosphatase 72 Total Protein 5.4 L Albumin 1.6 L Globulin 3.8 Albumin/Globulin Ratio 0.4 Preliminary micro results at discharge 07/11/23 16:40 - Preliminary Blood NO GROWTH AT 36-48 HOURS. FINAL TO FOLLOW. 07/11/23 16:35 Blood Culture Result 1 - Preliminary Blood NO GROWTH AT 36-48 HOURS. FINAL TO FOLLOW. Discharge Plan Discharge Disposition: Hospice - Home Condition: Good Discharge Medications: New levofloxacin 500 mg tablet 500 mg PO DAILY 10 Days Qty: 10 0RF Continued donepezil 10 mg tablet 10 mg PO BID ferrous sulfate 325 mg (65 mg iron) tablet 325 mg PO DAILY ibuprofen 600 mg tablet 400 mg PO Q12H levetiracetam [Keppra] 500 mg tablet 500 mg PO Q12H memantine 5 mg tablet 5 mg PO BID quetiapine [Seroquel] 25 mg tablet 25 mg PO QPM Rx Instructions: IN the evening sertraline [Zoloft] 100 mg tablet 100 mg PO DAILY simvastatin 20 mg tablet 20 mg PO QPM cyanocobalamin (vitamin B-12) 1,000 mcg capsule 1,000 mcg PO DAILY hyoscyamine sulfate [Levsin] 0.125 mg tablet 0.125 mg PO Q4H PRN (Reason: secretions) fludrocortisone 0.1 mg tablet 0.1 mg PO DAILY levothyroxine 50 mcg tablet 50 mcg PO DAILY acetaminophen [Aphen] 325 mg tablet 650 mg PO Q6H PRN (Reason: fever or pain) loperamide 2 mg capsule 2 mg PO Q12H PRN (Reason: loose stool) Rx Instructions: 2 mg 1st dose then 1 tablet BID as needed no more then 4tablets daily ondansetron HCl 4 mg tablet 4 mg PO Q6H PRN (Reason: nausea and vomiting) melatonin 5 mg capsule 5 mg PO .QHS albuterol sulfate 2.5 mg/0.5 mL solution for nebulization 2.5 mg inhalation Q4H PRN (Reason: shortness of breath or wheezing) lorazepam [Ativan] 0.5 mg tablet 0.5 mg PO Q12H PRN (Reason: agitation) ipratropium-albuterol 0.5 mg-3 mg(2.5 mg base)/3 mL solution for nebulization 3 ml inhalation BID Activity: increase activity as tolerated Diet: advance to your usual diet Print Language: Italian Patient Instructions: Levofloxacin (By mouth), Pneumonia (DC) Forms: Portal Instructions
--- NOTE | 2023-07-14 16:31 | SWNOTE1 ---
Pt is returning to [facility]. After a miscommunication with [facility] they are coming here to complete eval and the DME equipment will not be set up until 6:00. Nursing is aware and so is family.
== END 2023-07-14 17:39 | disposition hospice, home (50) | DRG 193 ==
LOC: ER 17:40 → MS 18:21
PROVIDERS: Admitting Provider Family Medicine; Emergency Provider Emergency Medicine; PCP Family Medicine; Visit Provider Family Medicine
DX: J10.08 Influenza due to other identified influenza virus with other specified pneumonia (principal); E43 Unspecified severe protein-calorie malnutrition; J90 Pleural effusion, not elsewhere classified; N39.0 Urinary tract infection, site not specified; J15.9 Unspecified bacterial pneumonia; J44.0 Chronic obstructive pulmonary disease with (acute) lower respiratory infection; J44.1 Chronic obstructive pulmonary disease with (acute) exacerbation; E03.9 Hypothyroidism, unspecified; F32.A Depression, unspecified; F03.90 Unspecified dementia, unspecified severity, without behavioral disturbance, psychotic disturbance, mood disturbance, and anxiety; G40.909 Epilepsy, unspecified, not intractable, without status epilepticus; N18.31 Chronic kidney disease, stage 3a; F20.9 Schizophrenia, unspecified; Z86.16 Personal history of COVID-19; Z79.899 Other long term (current) drug therapy; Z87.891 Personal history of nicotine dependence; R09.02 Hypoxemia; D50.9 Iron deficiency anemia, unspecified; Y95 Nosocomial condition; D69.6 Thrombocytopenia, unspecified; R06.03 Acute respiratory distress; B96.89 Other specified bacterial agents as the cause of diseases classified elsewhere; Z68.26 Body mass index [BMI] 26.0-26.9, adult
CPT/HCPCS: 0202U; 36415; 71045; 80048; 80053; 81001; 83605; 83735; 83880; 84145; 84484; 85025; 87040; 87070; 87086; 87150; 87186; 93005; 94640; 94667; 94668; 94761; 96365; 96366; 96367; 96368; 96375; 96376; 97163; 97165; 97530; 97535; 99285; J0456; J2919

== ENCOUNTER 2023-09-29 11:15 | Emergency (ER) | payer MEDICARE, SELFPAY ==
[2023-09-29 11:17] VITALS: BP 118/70; PULSE 70; TEMP 36.8; O2SAT 98; BMI 23.8
--- NOTE | 2023-09-29 11:27 | PC.NURSE ---
purple bruise to left lower buttock. pt does not know when or how she fell. pt does not know if she walks or not. pt is confused
--- NOTE | 2023-09-29 11:29 | XR_ITS ---
The [address] [address] Patient Name: JARROD CORTEZ MRN: [id number] date: 1940 Sex: F Assigned Patient Location: ER Current Patient Location: ED.MAIN Accession/Order Number: [id number] Exam Date: 09/29/2023 11:30 Report Date: 09/29/2023 12:09 At the request of: KEVIN STEINER Procedure: XR hip LT min 2V PROCEDURE: XR hip LT min 2V COMPARISON: None. HISTORY: fall FINDINGS: BONES:No acute fracture or dislocation. Moderate osteoarthritis with joint space narrowing and marginal osteophyte formation. Enthesopathic spurring greater trochanter SOFT TISSUES:Negative. No visible soft tissue swelling. EFFUSION:None visible. OTHER: Negative. XR/XR hip LT min 2V IMPRESSION: Osteoarthritis with no acute fracture Electronically authenticated by: RANDALL CARMONA Date: 09/29/2023 12:09
--- NOTE | 2023-09-29 11:34 | ED_ITS ---
HPI HPI - Extremity Injury (Lower) General Chief Complaint: Extremity Injury, Lower Stated Complaint: general weakness/fall Time Seen by Provider: 09/29/23 11:23 Mode of arrival: ambulance History of Present Illness HPI Narrative: 82-year-old female presented to the emergency department for a bruise on her left buttock and hip area. She is unable to give any history at all. She has DNRCC status and is baseline disoriented. She apparently fell twice, once yesterday and once today. Most of the history is obtained from hospice nurse who called in the information. No further history is obtainable. She does not appear to have hit her head. Related Data Home Medications ?Medication ?Instructions ?Recorded ?Confirmed cyanocobalamin (vitamin B-12) 1,000 mcg PO DAILY 09/19/22 07/11/23 1,000 mcg capsule donepezil 10 mg tablet 10 mg PO BID 09/19/22 07/11/23 ferrous sulfate 325 mg (65 mg 325 mg PO DAILY 09/19/22 07/11/23 iron) tablet hyoscyamine sulfate 0.125 mg 0.125 mg PO Q4H PRN secretions 09/19/22 07/11/23 tablet (Levsin) ibuprofen 600 mg tablet 400 mg PO Q12H pain 09/19/22 07/11/23 levetiracetam 500 mg tablet 500 mg PO Q12H 09/19/22 07/11/23 (Keppra) memantine 5 mg tablet 5 mg PO BID 09/19/22 07/11/23 quetiapine 25 mg tablet (Seroquel) 25 mg PO QPM 09/19/22 07/11/23 sertraline 100 mg tablet (Zoloft) 100 mg PO DAILY 09/19/22 07/11/23 simvastatin 20 mg tablet 20 mg PO QPM 09/19/22 07/11/23 acetaminophen 325 mg tablet (Aphen) 650 mg PO Q6H PRN fever or pain 06/25/23 07/11/23 fludrocortisone 0.1 mg tablet 0.1 mg PO DAILY 06/25/23 07/11/23 levothyroxine 50 mcg tablet 50 mcg PO DAILY 06/25/23 07/11/23 loperamide 2 mg capsule 2 mg PO Q12H PRN loose stool 06/25/23 07/11/23 ondansetron HCl 4 mg tablet 4 mg PO Q6H PRN nausea and vomiting 06/25/23 07/11/23 albuterol sulfate 2.5 mg/0.5 mL 2.5 mg inhalation Q4H PRN 07/11/23 07/11/23 solution for nebulization shortness of breath or wheezing ipratropium 0.5 mg-albuterol 3 mg 3 ml inhalation BID 07/11/23 07/11/23 (2.5 mg base)/3 mL nebulization soln lorazepam 0.5 mg tablet (Ativan) 0.5 mg PO Q12H PRN agitation 07/11/23 07/11/23 melatonin 5 mg capsule 5 mg PO .QHS 07/11/23 07/11/23 Previous Rx's ?Medication ?Instructions ?Recorded levofloxacin 500 mg tablet 500 mg PO DAILY 10 days #10 tabs 07/14/23 Allergies Allergy/AdvReac Type Severity Reaction Status Date / Time No Known Drug Allergies Allergy Verified 07/11/23 16:25 Opioid HPI Opioid Management Most Recent Pain and Opioid Data: Last Pain Scale 0 06/26/23 11:28 Last Pain Intensity 0 06/26/23 11:28 Last ORT Total Score 0 07/11/23 18:52 Last ORT Risk Category Low Risk 07/11/23 18:52 Review of Systems ROS Narrative Not obtainable, not oriented [facility] Medical History (Updated 09/29/23 @ 12:49 by Ryan Mattson MD) Pneumonia ?J18.9 - Pneumonia, unspecified organism (ICD-10) Stage 3a chronic kidney disease (CKD) ?N18.31 - Chronic kidney disease, stage 3a (ICD-10) Seizure disorder ?G40.909 - Epilepsy, unspecified, not intractable, without status epilepticus (ICD-10) Dementia ?F03.90 - Unspecified dementia, unspecified severity, without behavioral disturbance, psychotic disturbance, mood disturbance, and anxiety (ICD-10) Hypoxia ?R09.02 - Hypoxemia (ICD-10) COVID ?U07.1 - COVID-19 (ICD-10) Abscess ?L02.91 - Cutaneous abscess, unspecified (ICD-10) Contusion of hip ?S70.00XA - Contusion of unspecified hip, initial encounter (ICD-10) Fall ?W19.XXXA - Unspecified fall, initial encounter (ICD-10) Hypothyroidism ?E03.9 - Hypothyroidism, unspecified (ICD-10) Syncope due to orthostatic hypotension ?I95.1 - Orthostatic hypotension (ICD-10) Acute dehydration ?E86.0 - Dehydration (ICD-10) Schizophrenia ?F20.9 - Schizophrenia, unspecified (ICD-10) Depression ?F32.A - Depression, unspecified (ICD-10) Social History (Updated 07/11/23 @ 19:07 by Daisy Rock LPN) Within the past year, how often did you have a drink containing alcohol: never Within the past year, how often did you have six or more drinks on one occasion: never Score interpretation: A score less than 3 is consistent with normal alcohol consumption. Smoking status: Former smoker Second hand tobacco smoke exposure: No Non-prescribed substance use: denies use Previous occupational history: retired Highest level of school completed/degree received: high school graduate Are you now , , , , never or living with a partner: don't know In a typical week, how many times do you talk on the telephone with family, friends, or neighbors: twice per week How often do you get together with friends or relatives: twice per week How often do you attend christian or samaritan services: never Do you belong to any clubs or organizations such as christian groups unions, fraternal or athletic groups, or school groups: no Total score: 1 Score interpretation: A score of less than or equal to 1 indicates the most socially isolated. Little interest or pleasure in doing things: not at all Feeling down, depressed, or hopeless: not at all Feel stressed/tense/nervous/anxious/difficulty sleeping: not at all Do you think of yourself as: straight/heterosexual Gender Identity: female Exam Narrative Exam Narrative: Nurses note and vital signs reviewed and patient is not hypoxic. General: The patient appears in no apparent distress. Skin: Warm, dry, no pallor noted. There is no rash noted. Head: Normocephalic, atraumatic Eye: Normal conjunctiva, no drainage Ears, Nose, Mouth, and Throat: oral mucosa is moist. Nares patent. Cardiovascular: Regular Rate and Rhythm Respiratory: Patient is in no distress, no accessory muscle use, lungs are clear to auscultation, no wheezing, rales or rhonchi Back: non-tender GI: Soft and Musculoskeletal: She has purple bruising on the left hip and buttock area. She is able to flex that hip. No bruising or swelling on the right hip. Both knees are nontender. Neurological: She is awake and alert, cannot answer orientation question Psychiatric: Cannot be assessed Constitutional Vital Signs, click to edit/add: Last Vital Signs Temp 98.2 F 09/29/23 11:17 Pulse 70 09/29/23 11:17 Resp 16 09/29/23 11:17 BP 118/70 09/29/23 11:17 Pulse Ox 98 09/29/23 11:17 O2 Del Method Room Air 09/29/23 11:17 Course Vital Signs Vital signs: Vital Signs Temperature 98.2 F 09/29/23 11:17 Pulse Rate 70 09/29/23 11:17 Respiratory Rate 16 09/29/23 11:17 Blood Pressure 118/70 09/29/23 11:17 Pulse Oximetry 98 09/29/23 11:17 Oxygen Delivery Method Room Air 09/29/23 11:17 Temperature 98.2 F 09/29/23 11:17 Pulse Rate 70 09/29/23 11:17 Respiratory Rate 16 09/29/23 11:17 Blood Pressure 118/70 09/29/23 11:17 Pulse Oximetry 98 09/29/23 11:17 Oxygen Delivery Method Room Air 09/29/23 11:17 MDM - Extremity Injury (Lower) MDM Narrative Medical decision making narrative: X-rays are negative. She was able to ambulate with a walker here and daughter states that she is walking normal for her. She is able to be released. Findings were discussed with her daughter. Differential Diagnosis Differential diagnosis: Likely other (Contusion, fracture) Imaging Data Left hip x-ray: Radiologist's impression: ITS Impressions Hip X-Ray 09/29/23 11:29 IMPRESSION: Osteoarthritis with no acute fracture Electronically authenticated by: RANDALL CARMONA Date: 09/29/2023 12:09 Discharge Plan Discharge Stand Alone Forms: Portal Instructions Chief Complaint: Extremity Injury, Lower Clinical Impression: Fall, Contusion, buttock Patient Disposition: Home, Self-Care Time of Disposition Decision: 12:49 Condition: Good Mode of Transportation: Private Vehicle Prescriptions / Home Meds: No Action donepezil 10 mg tablet 10 mg PO BID ferrous sulfate 325 mg (65 mg iron) tablet 325 mg PO DAILY ibuprofen 600 mg tablet 400 mg PO Q12H levetiracetam [Keppra] 500 mg tablet 500 mg PO Q12H memantine 5 mg tablet 5 mg PO BID quetiapine [Seroquel] 25 mg tablet 25 mg PO QPM Rx Instructions: IN the evening sertraline [Zoloft] 100 mg tablet 100 mg PO DAILY simvastatin 20 mg tablet 20 mg PO QPM cyanocobalamin (vitamin B-12) 1,000 mcg capsule 1,000 mcg PO DAILY hyoscyamine sulfate [Levsin] 0.125 mg tablet 0.125 mg PO Q4H PRN (Reason: secretions) fludrocortisone 0.1 mg tablet 0.1 mg PO DAILY levothyroxine 50 mcg tablet 50 mcg PO DAILY acetaminophen [Aphen] 325 mg tablet 650 mg PO Q6H PRN (Reason: fever or pain) loperamide 2 mg capsule 2 mg PO Q12H PRN (Reason: loose stool) Rx Instructions: 2 mg 1st dose then 1 tablet BID as needed no more then 4tablets daily ondansetron HCl 4 mg tablet 4 mg PO Q6H PRN (Reason: nausea and vomiting) melatonin 5 mg capsule 5 mg PO .QHS albuterol sulfate 2.5 mg/0.5 mL solution for nebulization 2.5 mg inhalation Q4H PRN (Reason: shortness of breath or wheezing) lorazepam [Ativan] 0.5 mg tablet 0.5 mg PO Q12H PRN (Reason: agitation) ipratropium-albuterol 0.5 mg-3 mg(2.5 mg base)/3 mL solution for nebulization 3 ml inhalation BID levofloxacin 500 mg tablet 500 mg PO DAILY 10 Days Qty: 10 0RF Print Language: Dominican Instructions: Fall Prevention for Older Adults (ED), Contusion in Adults (ED) Referrals: AYE RODRIGUEZ [Physician] - 1 week
[2023-09-29] MEDS: ACETAMINOPHEN 325 MG TABLET 650 MG PO (12:52)
== END 2023-09-29 13:20 | disposition home or self-care (01) ==
PROVIDERS: Emergency Provider Emergency Medicine
DX: S30.0XXA Contusion of lower back and pelvis, initial encounter (principal); W19.XXXA Unspecified fall, initial encounter; Z66 Do not resuscitate; Z87.891 Personal history of nicotine dependence
CPT/HCPCS: 73502; 99283

== ENCOUNTER 2023-10-07 20:18 | Emergency (ER) | payer MEDICARE, SELFPAY ==
[2023-10-07 20:20] VITALS: BP 137/52; PULSE 66; TEMP 36.6; O2SAT 97; BMI 23.4
--- OUTSIDE RECORDS SUMMARY | 2023-10-07 20:29 | XMS_ITS | CCD ---
Author Organization [facility] Care Team Providers Care Composition Weatherboard Applier Name Role Phone Aye Nevarez Primary Care Provider DARIEN FERRARA Admitting Unavailable NANCY TRUJILLO Referring Unavailable AYE NEVAREZ Primary Care Unavailable HANSEL VERDUGO Consulting Unavailable DARLYN GARCIA Attending Unavailable TONY PARRISH Consulting Unavailable Aye Nevarez DO Primary Care Provider Aye Nevarez DO Primary Care Provider [phone] Aye Nevarez DO Primary Care Provider [phone] AYE NEVAREZ Referring Unavailable AYE NEVAREZ Primary [...] STEINER Admitting Unavailable KEVIN STEINER Attending Unavailable GRECHALEX ., ANN HALE Consulting Unavailabl e HAY ., DR COLINDRES Consulting Unavailable POLICARODAVIN Consulting Unavailable AYE NEVAREZ Referring Unavailable AYE [...] Substituted for Omeprazole (PRILOSEC). 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; Translations: [OTH [facility] CURRENT DRUG THERAPY] Onset: 07-20-2022 Episodic Other [...] 05-09-2023 Bilirubin Ql (U) Negative Normal NEG [facility] Comment on above: Performed By: #### U A #### [facility] ([id number]) [address] [place] [address] 12856 BLOOD/HGB Negative Normal NEG [facility] Comment on above: Performed By: #### U A #### [facility] ([id number]) [address] [place] [address] 29637 Color (U) YELLOW Normal YELLOW [facility] Comment on above: Performed By: #### U A #### [facility] ([id number]) [address] [place] [address] 97390 Glucose Ql (U) Negative Normal NEG [facility] Comment on above: Performed By: #### U A #### [facility] ([id number]) [address] [place] [address] 19869 Ketones Ql (U) Negative Normal NEG [facility] Comment on above: Performed By: #### U A #### [facility] ([id number]) [address] [place] [address] [place] [address] Leukocyte esterase Test strip Ql (U) Negative Normal NEG [facility] Comment on above: Performed By: #### U A #### [facility] ([id number]) [address] [place] [address] 34254 Nitrite Ql (U) Negative Normal NEG [facility] Comment on above: Performed By: #### U A #### [facility] ([id number]) [address] [place] [address] [place] [address] pH (U) 6.5 [pH] Normal 5.0-8.5 [facility] Comment on above: Performed By: #### U A #### [facility] ([id number]) [address] [place] [address] 36693 Protein Ql (U) Negative Normal NEG [facility] Comment on above: Performed By: #### U A #### [facility] ([id number]) [address] [place] [address] 44389 Specific gravity (U) [Rel density] 1.010 Normal 1.003-1.035 [facility] Comment on above: Performed By: #### U A #### [facility] ([id number]) [address] [place] [address] 44579 TURBIDITY CLEAR Normal CLEAR [facility] Comment on above: Performed By: #### U A #### [facility] ([id number]) [address] [place] [address] 07164 Urinalysis dipstick W Reflex Microscopic panel (U) URINE RECEIVED WITHOUT PRESERVATIVE-DELAYS IN TRANSPORT MAY AFFECT RESULTS.INTERPRET WITH CAUTION AND CLINICAL CORRELATION IS RECOMMENDED. Normal [facility] Comment on above: Performed By: #### U A #### [facility] ([id number]) [address] [place] [address] 86635 Urobilinogen Qn (U) 0.2 {Kannan'U}/dL Normal <1.1 [facility] Comment on above: Performed By: #### U A #### [facility] ([id number]) [address] [place] [address] 13885 URINE CULTUREon 05-09-2023 Bacteria identified Cx Nom [...] F TRIMETH/SULFAMETHOXAZOL E S <=04/28 F Susceptible [facility] Comment on above: Performed By: #### 6 30-4 #### [facility] ([id number]) [address] [place] [address], [address] [place] [address] AMMONIAon 07-18-2022 Ammonia (P) [Mass/Vol] ug/dL Critically low 11-32 [facility] Comment on above: Performed By: #### H STROPN, TSH, CMP #### [facility] [address] [place] [address] Dr. King Moya CBC AUTO DIFFon 07-18-2022 BASO # 0.1 103/ul Normal 0.0-0.1 [facility] Comment on above: Performed By: #### C BC #### [facility] [address] [address] [address] King Moya Basophils/100 WBC (Bld) 0.7 % Normal 0.2-2.0 [facility] Comment on above: Performed By: #### C BC #### [facility] [address] [address] [address] King Moya EO # 0.1 103/ul Normal 0.0-0.7 [facility] Comment on above: Performed By: #### C BC #### [facility] [address] [address] [address] King Moya Eosinophils/100 WBC (Bld) 1.4 % Normal 0.9-7.0 [facility] Comment on above: Performed By: #### C BC #### [facility] [address] [place] [address] Dr. King Moya Erythrocyte distribution width (RBC) [Ratio] 12.7 % Normal 11.0-15.0 [facility] Comment on above: Performed By: #### C BC #### [facility] [address] [address] [address] King Moya Hematocrit (Bld) [Volume fraction] 32.5 % Critically low 36.0-48.0 [facility] Comment on above: Performed By: #### C BC #### [facility] [address] [address] [address] King Moya Hemoglobin (Bld) [Mass/Vol] 10.6 g/dL Critically low 12.0-16.0 [facility] Comment on above: Performed By: #### C BC #### [facility] [address] [address] [address] King Moya IG # 0.05 10e3/ul Critically high 0.00-0.03 [facility] Comment on above: Performed By: #### C BC #### [facility] [address] [address] [address] King Moya IG % 0.6 % Critically high 0.0-0.5 [facility] Comment on above: Performed By: #### C BC #### [facility] [address] [address] [address] King Moya LYMPH # 2.8 103/ul Normal 1.2-3.8 [facility] Comment on above: Performed By: #### C BC #### [facility] [address] [address] [address] King Moya Lymphocytes/100 WBC (Bld) 31.0 % Normal 20.5-60.0 [facility] Comment on above: Performed By: #### C BC #### [facility] [address] [address] [address] King Moya MANUAL DIFF REQ NO Normal [facility] Comment on above: Performed By: #### C BC #### [facility] [address] [place] [address] Dr. King Moya MCH (RBC) [Entitic mass] 31.5 pg Normal 26.7-34.0 [facility] Comment on above: Performed By: #### C BC #### [facility] [address] [address] [address] King Moya MCHC (RBC) [Mass/Vol] 32.6 g/dL Normal 29.9-35.2 [facility] Comment on above: Performed By: #### C BC #### [facility] [address] [address] [address] King Moya MCV (RBC) [Entitic vol] 96.4 fL Normal 81.0-99.0 [facility] Comment on above: Performed By: #### C BC #### [facility] [address] [place] [address] Dr. King Moya MONO # 0.8 103/ul Normal 0.3-0.8 [facility] Comment on above: Performed By: #### C BC #### [facility] [address] [place] [address] Dr. King Moya Monocytes/100 WBC (Bld) 9.1 % Normal 1.7-12.0 [facility] Comment on above: Performed By: #### C BC #### [facility] [address] [place] [address] Dr. King Moya NEUT # 5.1 103/ul Normal 1.4-6.5 [facility] Comment on above: Performed By: #### C BC #### [facility] [address] [place] [address] Dr. King Moya Neutrophils/100 WBC (Bld) 57.2 % Normal 43.0-75.0 [facility] Comment on above: Performed By: #### C BC #### [facility] [address] [place] [address] Dr. King Moya Platelet mean volume (Bld) [Entitic vol] 9.2 fL Critically low 9.5-13.5 [facility] Comment on above: Performed By: #### C BC #### [facility] [address] [place] [address] Dr. King Moya PLT 258 103/ul Normal 150-450 [facility] Comment on above: Performed By: #### C BC #### [facility] [address] [address] [address] King Moya RBC 3.37 106/ul Critically low 4.20-5.40 [facility] Comment on above: Performed By: #### C BC #### [facility] [id number] King Moya WBC 8.9 103/ul Normal 4.0-11.0 [facility] Comment on above: Performed By: #### C BC #### [facility] [address] [place] [address] Dr. King Moya Covid-19 PCR ([facility])on 07-09 SARS-CoV-2 (COVID-19) RNA TEMO+probe Ql (Unsp spec) Not detected Normal NOT DETECTED [facility] Comment on above: Result Comment: When [...] for this test is supported by the Agronomy Teacher of Health and Human Service's declaration that [...] #### H STROPN, TSH, CMP #### [facility] [address] [place] [address] Dr. King Moya ER URINE PROFILEon 3 Bilirubin Ql (U) Negative Normal NEGATIVE [facility] Comment on above: Performed By: #### E RUR #### [facility] [address] [place] [address] Dr. King Moya Clarity (U) CLEAR Normal CLEAR [facility] Comment on above: Performed By: #### E RUR #### [facility] [address] [place] [address] Dr. King Moya Color (U) YELLOW Normal YELLOW [facility] Comment on above: Performed By: #### E RUR #### [facility] [address] [place] [address] Dr. King MELISSA A micrscopic examination will be performed if indicated. Normal [facility] Comment on above: Performed By: #### E RUR #### [facility] [address] [place] [address] Dr. King Moya Glucose Ql (U) Negative Normal NEGATIVE [facility] Comment on above: Performed By: #### E RUR #### [facility] [address] [place] [address] Dr. King Moya Hemoglobin Ql (U) Negative Normal NEGATIVE [facility] Comment on above: Performed By: #### E RUR #### [facility] [address] [place] [address] Dr. King Moya Ketones Ql (U) 40 mg/dl Abnormal NEGATIVE [facility] Comment on above: Performed By: #### E RUR #### [facility] [address] [place] [address] Dr. King Moya LEUKOCYTES Negative Normal NEGATIVE [facility] Comment on above: Performed By: #### E RUR #### [facility] [address] [place] [address] Dr. King Moya Nitrite Ql (U) Negative Normal NEGATIVE [facility] Comment on above: Performed By: #### E RUR #### [facility] [address] [place] [address] Dr. King Moya pH (U) 6.5 [pH] Normal 5-9 [facility] Comment on above: Performed By: #### E RUR #### [facility] [address] [place] [address] Dr. King Moya SPEC GRAVITY 1.020 Normal 1.005-<=1.[address] [place] [address] Comment on above: Performed By: #### E RUR #### [facility] [address] [place] [address] Dr. King Moya UA PROTEIN Negative Normal NEGATIVE/ TRACE [facility] Comment on above: Performed By: #### E RUR #### [facility] [address] [place] [address] Dr. King Moya UR MICRO IND NOT INDICATED Normal [facility] Comment on above: Performed By: #### E RUR #### [facility] [address] [place] [address] Dr. King Moya Urobilinogen Qn (U) 0.2 {Kannan'U}/dL Normal 0.2 - 1. 0 [facility] Comment on above: Performed By: #### E RUR #### [facility] [address] [place] [address] Dr. King Moya FREE T3on 07-18-2022 FREE T3 1.64 pg/mlL Critically low 2.18-3.98 [facility] Comment on above: Performed By: #### H STROPN, TSH, CMP #### [facility] [address] [place] [address] Dr. King Moya FREE T4on 07-18-2022 Free T4 [Mass/Vol] 0.73 ng/dL Critically low 0.76-1.46 [facility] Comment on above: Performed By: #### H STROPN, TSH, CMP #### [facility] [address] [place] [address] Dr. King Moya LACTATE/LACTIC ACIDon 2022 Lactate [Moles/Vol] 1.1 mmol/L Normal 0.4-2.0 [facility] Comment on above: Performed By: #### L ACT #### [facility] [address] [place] [address] Dr. King Moya PROF 14(COMP METB)on 023 Albumin [Mass/Vol] 2.9 g/dL Critically low 3.4-5.0 [facility] Comment on above: Performed By: #### H STROPN, TSH, CMP #### [facility] [address] [address] [address] King Moya Albumin/Globulin [Mass ratio] 0.9 {ratio} Normal [facility] Comment on above: Performed By: #### H STROPN, TSH, CMP #### [facility] [address] [address] [address] King Moya ALP [Catalytic activity/Vol] 68 U/L Normal 46-116 [facility] Comment on above: Performed By: #### H STROPN, TSH, CMP #### [facility] [address] [address] [address] King Moya ALT [Catalytic activity/Vol] 12 U/L Critically low 14-59 [facility] Comment on above: Performed By: #### H STROPN, TSH, CMP #### [facility] [address] [address] [address] King Moya Anion gap [Moles/Vol] 8.6 mmol/L Normal [facility] Comment on above: Performed By: #### H STROPN, TSH, CMP #### [facility] [address] [address] [address] King Moya AST [Catalytic activity/Vol] 16 U/L Normal 15-37 [facility] Comment on above: Performed By: #### H STROPN, TSH, CMP #### [facility] [address] [address] [address] King Moya Bilirubin [Mass/Vol] 0.1 mg/dL Critically low 0.2-1.0 [facility] Comment on above: Performed By: #### H STROPN, TSH, CMP #### [facility] [address] [address] [address] King Moya Calcium [Mass/Vol] 8.4 mg/dL Critically low 8.5-10.1 Th [facility] Comment on above: Performed By: #### H STROPN, TSH, CMP #### [facility] [address] [address] [address] King Moya Chloride [Moles/Vol] 106 mmol/L Normal 98-107 [facility] Comment on above: Performed By: #### H STROPN, TSH, CMP #### [facility] [address] [place] [address] Dr. King Moya CO2 [Moles/Vol] 29.3 mmol/L Normal 21.0-32.0 [facility] Comment on above: Performed By: #### H STROPN, TSH, CMP #### [facility] [address] [place] [address] Dr. King Moya Creatinine [Mass/Vol] 1.19 mg/dL Critically high 0.55-1.02 [facility] Comment on above: Performed By: #### H STROPN, TSH, CMP #### [facility] [address] [place] [address] Dr. King Moya EGFR-AF KYRGYZ 53 mL/min/1.73m2 Critically low >=60 [facility] Comment on above: Performed By: #### H STROPN, TSH, CMP #### [facility] [address] [place] [address] Dr. King Moya EGFR-NON AF KYRGYZ 43 mL/min/1.73m2 Critically low >=60 [facility] Comment on above: Performed By: #### H STROPN, TSH, CMP #### [facility] [address] [place] [address] Dr. King Moya Globulin (S) [Mass/Vol] 3.1 g/dL Normal [facility] Comment on above: Performed By: #### H STROPN, TSH, CMP #### [facility] [address] [place] [address] Dr. King Moya Glucose [Mass/Vol] 105 mg/dL Normal 74-106 [facility] Comment on above: Performed By: #### H STROPN, TSH, CMP #### [facility] [address] [place] [address] Dr. King Moya Potassium [Moles/Vol] 4.9 mmol/L Normal 3.5-5.1 [facility] Comment on above: Performed By: #### H STROPN, TSH, CMP #### [facility] [address] [place] [address] Dr. King Moya Protein [Mass/Vol] 6.0 g/dL Critically low 6.4-8.2 Th e [facility] Comment on above: Performed By: #### H WILMA TSH, CMP #### [facility] [address] [address] [address] King Moya Sodium [Moles/Vol] 139 mmol/L Normal 136-145 [facility] Comment on above: Performed By: #### H WILMA, TSH, CMP #### [facility] [address] [place] [address] Dr. King Moya Urea nitrogen [Mass/Vol] 19.0 mg/dL Critically high 7.0-18.0 [facility] Comment on above: Performed By: #### H WILMA TSH, CMP #### [facility] [address] [place] [address] Dr. King Moya Urea nitrogen/Creatinine [Mass ratio] 16.0 mg/mg Normal [facility] Comment on above: Performed By: #### H WILMA TSH, CMP #### [facility] [address] [place] [address] Dr. King Myoa PROTIMEon 07-18-2022 INR Coag (PPP) [Relative time] 0.97 {INR} Normal [facility] Comment on above: Performed By: #### P T, PTT #### [facility] [address] [place] [address] Dr. King Moya INR GUIDELINES SEE BELOW Normal [facility] Comment on above: Result Comment: LORRI RED INR: 2.0 - 3.0 CONDITIONS NOT LISTED BELOW 2.5 - 3.5 FOR PROSTHETIC HEART VALVE REPLACEMENT 2.5 - 3.5 RECURRENT THROMBOSIS Performed By: #### P T, PTT #### [facility] [address] [place] [address] Dr. King Moya PT Coag (PPP) [Time] 10.3 s Normal 9.0-11.6 [facility] Comment on above: Performed By: #### P T, PTT #### [facility] [address] [place] [address] Dr. King Moya PTTon 07-18-2022 aPTT Coag (Bld) [Time] 23.2 s Normal 22.3-36.2 Th e [facility] Comment on above: Performed By: #### P T, PTT #### [facility] [address] [address] [address] King Moya TROPONIN, HIGH SENSITIVITYon 07-18-2022 HSTROP 8.6 pg/mL Normal 4.0-51.3 [facility] Comment on above: Result Comment: CUT- OFF POINTS HAVE BEEN ESTABLISHED BASED ON THE FOURTH UNIVERSAL DEFINITIONS OF MYOCARDIAL INFARCTION. THE UPPER REFERENCE LIMIT (URL) OF TROPONIN, DEFINED THE 99TH PERCENTILE OF cTnI DISTRIBUTION IN A REFERENCE POPULATION, HAS BEEN CONFIRMED THE DECISION THRESHOLD FOR AL DIAGNOSIS. Performed By: #### H WILMA, TSH, CMP #### [facility] [address] [address] [address] King Moya TSHon 07-18-2022 TSH 8.354 uIU/mL Critically high 0.358-3.740 [facility] Comment on above: Performed By: #### H WILMA, TSH, CMP #### [facility] [address] [address] [address] King Moya XR CHEST 1 Von 07-18-2022 XR CHEST 1 V CHEST X-RAY, 1 VIEW HISTORY: Hypotension. COMPARISON: 07/08/2022. FINDINGS: The cardiac silhouette is normal in size. There are aortic calcifications. The lungs are grossly clear. There are no pleural effusions. There is no pneumothorax. IMPRESSION: No evidence of acute cardiopulmonary disease. Electronically authenticated by: DAVIN CLAYTON Date: 2022-07-18 19:20 Normal [facility] CULTURE URINEon 07-11-2022 CULTURE URINE Isolate [...] xazole <=20 S F Normal [facility] Comment on above: Performed By: #### H STROPN, TSH, CMP #### [facility] [address] [place] [address] Dr. King Moya ACETONE SERUMon 07-08-2022 ACETONE Negative Normal NEGATIVE [facility] Comment on above: Performed By: #### A CETON #### [facility] [address] [place] [address] Dr. King Moya CBC AUTO DIFFon 07-08-2022 BASO # 0.1 103/ul Normal 0.0-0.1 [facility] Comment on above: Performed By: #### H STROPN, TSH, CMP #### [facility] [address] [place] [address] Dr. King Moya Basophils/100 WBC (Bld) 0.7 % Normal 0.2-2.0 [facility] Comment on above: Performed By: #### H STROPN, TSH, CMP #### [facility] [address] [place] [address] Dr. King Moya EO # 0.1 103/ul Normal 0.0-0.7 [facility] Comment on above: Performed By: #### H STROPN, TSH, CMP #### [facility] [address] [place] [address] Dr. King Moya Eosinophils/100 WBC (Bld) 1.5 % Normal 0.9-7.0 [facility] Comment on above: Performed By: #### H STROPN, TSH, CMP #### [facility] [address] [place] [address] Dr. King Moya Erythrocyte distribution width (RBC) [Ratio] 12.8 % Normal 11.0-15.0 [facility] Comment on above: Performed By: #### H STROPN, TSH, CMP #### [facility] [address] [place] [address] Dr. King Moya Hematocrit (Bld) [Volume fraction] 35.5 % Critically low 36.0-48.0 [facility] Comment on above: Performed By: #### H STROPN, TSH, CMP #### [facility] [address] [place] [address] Dr. King Moya Hemoglobin (Bld) [Mass/Vol] 11.6 g/dL Critically low 12.0-16.0 [facility] Comment on above: Performed By: #### H STROPN, TSH, CMP #### [facility] [address] [place] [address] Dr. King Moya IG # 0.05 10e3/ul Critically high 0.00-0.03 [facility] Comment on above: Performed By: #### H STROPN, TSH, CMP #### [facility] [address] [place] [address] Dr. King Moya IG % 0.6 % Critically high 0.0-0.5 [facility] Comment on above: Performed By: #### H STROPN, TSH, CMP #### [facility] [address] [place] [address] Dr. King Moya LYMPH # 2.8 103/ul Normal 1.2-3.8 [facility] Comment on above: Performed By: #### H STROPN, TSH, CMP #### [facility] [address] [place] [address] Dr. King Moya Lymphocytes/100 WBC (Bld) 31.8 % Normal 20.5-60.0 [facility] Comment on above: Performed By: #### H STROPN, TSH, CMP #### [facility] [address] [place] [address] Dr. King Moya MANUAL DIFF REQ NO Normal [facility] Comment on above: Performed By: #### H STROPN, TSH, CMP #### [facility] [address] [place] [address] Dr. King Moya MCH (RBC) [Entitic mass] 31.1 pg Normal 26.7-34.0 [facility] Comment on above: Performed By: #### H STROPN, TSH, CMP #### [facility] [address] [place] [address] Dr. King Moya MCHC (RBC) [Mass/Vol] 32.7 g/dL Normal 29.9-35.2 [facility] Comment on above: Performed By: #### H STROPN, TSH, CMP #### [facility] [address] [place] [address] Dr. King Moya MCV (RBC) [Entitic vol] 95.2 fL Normal 81.0-99.0 [facility] [facility] Comment on above: Performed By: #### H STROPN, TSH, CMP #### [facility] [address] [place] [address] Dr. King Moya MONO # 0.7 103/ul Normal 0.3-0.8 [facility] Comment on above: Performed By: #### H STROPN, TSH, CMP #### [facility] [address] [place] [address] Dr. King Moya Monocytes/100 WBC (Bld) 7.8 % Normal 1.7-12.0 [facility] Comment on above: Performed By: #### H STROPN, TSH, CMP #### [facility] [address] [place] [address] Dr. King Moya NEUT # 5.1 103/ul Normal 1.4-6.5 [facility] Comment on above: Performed By: #### H STROPN, TSH, CMP #### [facility] [address] [place] [address] Dr. King Moya Neutrophils/100 WBC (Bld) 57.6 % Normal 43.0-75.0 [facility] Comment on above: Performed By: #### H STROPN, TSH, CMP #### [facility] [address] [place] [address] Dr. King Moya Platelet mean volume (Bld) [Entitic vol] 9.1 fL Critically low 9.5-13.5 [facility] Comment on above: Performed By: #### H STROPN, TSH, CMP #### [facility] [address] [place] [address] Dr. King Moya PLT 253 103/ul Normal 150-450 [facility] Comment on above: Performed By: #### H STROPN, TSH, CMP #### [facility] [address] [address] [address] King Moya RBC 3.73 106/ul Critically low 4.20-5.40 [facility] Comment on above: Performed By: #### H STROPN, TSH, CMP #### [facility] [address] [address] [address] King Moya WBC 8.9 103/ul Normal 4.0-11.0 [facility] Comment on above: Performed By: #### H STROPN, TSH, CMP #### [facility] [address] [address] [address] STROKE HEAD WOon [...] BOSCH Date: 2022-07-08 19:27 Normal [facility] URINE PROFILEon 3 Bilirubin Ql (U) Negative Normal NEGATIVE [facility] Comment on above: Performed By: #### H STROPN, TSH, CMP #### [facility] [address] [address] [address] King Moya Clarity (U) CLEAR Normal CLEAR [facility] Comment on above: Performed By: #### H STROPN, TSH, CMP #### [facility] [address] [address] [address] King Moya Color (U) YELLOW Normal YELLOW [facility] Comment on above: Performed By: #### H STROPN, TSH, CMP #### [facility] [address] [place] [address] Dr. King MELISSA A micrscopic examination will be performed if indicated. Normal [facility] Comment on above: Performed By: #### H STROPN, TSH, CMP #### [facility] [address] [address] [address] King Moya Glucose Ql (U) Negative Normal NEGATIVE [facility] Comment on above: Performed By: #### H STROPN, TSH, CMP #### [facility] [address] [place] [address] Dr. King Moya Hemoglobin Ql (U) Negative Normal NEGATIVE [facility] Comment on above: Performed By: #### H STROPN, TSH, CMP #### [facility] [address] [place] [address] Dr. King Moya Ketones Ql (U) TRACE Abnormal NEGATIVE [facility] Comment on above: Performed By: #### H STROPN, TSH, CMP #### [facility] [address] [place] [address] Dr. King Moya LEUKOCYTES TRACE Abnormal NEGATIVE [facility] Comment on above: Performed By: #### H STROPN, TSH, CMP #### [facility] [address] [place] [address] Dr. King Moya Nitrite Ql (U) Negative Normal NEGATIVE [facility] Comment on above: Performed By: #### H STROPN, TSH, CMP #### [facility] [address] [place] [address] Dr. King Moya pH (U) 5.0 [pH] Normal 5-9 [facility] Comment on above: Performed By: #### H STROPN, TSH, CMP #### [facility] [address] [place] [address] Dr. King Moya SPEC GRAVITY >=1.030 Abnormal 1.005-<=1.02 5 [facility] Comment on above: Performed By: #### H STROPN, TSH, CMP #### [facility] [address] [place] [address] Dr. King Moya UA PROTEIN TRACE Normal NEGATIVE/ TRACE [facility] Comment on above: Performed By: #### H STROPN, TSH, CMP #### [facility] [address] [address] [address] King Moya UR MICRO IND INDICATED Normal [facility] Comment on above: Performed By: #### H STROPN, TSH, CMP #### [facility] [address] [place] [address] Dr. King Moya Urobilinogen Qn (U) 0.2 {Kannan'U}/dL Normal 0.2 - 1. 0 [facility] Comment on above: Performed By: #### H STROPN, TSH, CMP #### [facility] [address] [place] [address] Dr. King Moya LACTATE/LACTIC ACIDon 2022 Lactate [Moles/Vol] 1.1 mmol/L Normal 0.4-2.0 [facility] Comment on above: Performed By: #### L ACT #### [facility] [address] [place] [address] Dr. King Moya PROF 14(COMP METB)on 023 Albumin [Mass/Vol] 3.5 g/dL Normal 3.4-5.0 [facility] Comment on above: Performed By: #### H STROPN, TSH, CMP #### [facility] [address] [place] [address] Dr. King Moya Albumin/Globulin [Mass ratio] 1.2 {ratio} Normal [facility] Comment on above: Performed By: #### H STROPN, TSH, CMP #### [facility] [address] [place] [address] Dr. King Moya ALP [Catalytic activity/Vol] 58 U/L Normal 46-116 [facility] Comment on above: Performed By: #### H STROPN, TSH, CMP #### [facility] [address] [place] [address] Dr. King Moya ALT [Catalytic activity/Vol] 14 U/L Normal 14-59 [facility] Comment on above: Performed By: #### H STROPN, TSH, CMP #### [facility] [address] [address] [address] King Moya Anion gap [Moles/Vol] 10.7 mmol/L Normal Th [facility] Comment on above: Performed By: #### H STROPN, TSH, CMP #### [facility] [address] [address] [address] King Moya AST [Catalytic activity/Vol] 11 U/L Critically low 15-37 [facility] Comment on above: Performed By: #### H STROPN, TSH, CMP #### [facility] [address] [address] [address] King Moya Bilirubin [Mass/Vol] 0.2 mg/dL Normal 0.2-1.0 [facility] Comment on above: Performed By: #### H STROPN, TSH, CMP #### [facility] [address] [place] [address] Dr. King Moya Calcium [Mass/Vol] 9.2 mg/dL Normal 8.5-10.1 [facility] Comment on above: Performed By: #### H STROPN, TSH, CMP #### [facility] [address] [place] [address] Dr. King Moya Chloride [Moles/Vol] 105 mmol/L Normal 98-107 [facility] Comment on above: Performed By: #### H STROPN, TSH, CMP #### [facility] [address] [place] [address] Dr. King Moya CO2 [Moles/Vol] 28.7 mmol/L Normal 21.0-32.0 [facility] Comment on above: Performed By: #### H STROPN, TSH, CMP #### [facility] [address] [place] [address] Dr. King Moya Creatinine [Mass/Vol] 1.39 mg/dL Critically high 0.55-1.02 [facility] Comment on above: Performed By: #### H STROPN, TSH, CMP #### [facility] [address] [address] [address] King Moya EGFR-AF KYRGYZ 44 mL/min/1.73m2 Critically low >=60 [facility] Comment on above: Performed By: #### H STROPN, TSH, CMP #### [facility] [address] [address] [address] King Moya EGFR-NON AF KYRGYZ 36 mL/min/1.73m2 Critically low >=60 [facility] Comment on above: Performed By: #### H STROPN, TSH, CMP #### [facility] [address] [address] [address] King Moya Globulin (S) [Mass/Vol] 2.9 g/dL Normal [facility] Comment on above: Performed By: #### H STROPN, TSH, CMP #### [facility] [address] [address] [address] King Moya Glucose [Mass/Vol] 119 mg/dL Critically high 74-106 [facility] Comment on above: Performed By: #### H STROPN, TSH, CMP #### [facility] [address] [address] [address] King Moya Potassium [Moles/Vol] 4.4 mmol/L Normal 3.5-5.1 [facility] Comment on above: Performed By: #### H STROPN, TSH, CMP #### [facility] [address] [address] [address] King Moya Protein [Mass/Vol] 6.4 g/dL Normal 6.4-8.2 [facility] Comment on above: Performed By: #### H STROPN, TSH, CMP #### [facility] [address] [address] [address] King Moya Sodium [Moles/Vol] 140 mmol/L Normal 136-145 [facility] Comment on above: Performed By: #### H STROPN, TSH, CMP #### [facility] [address] [address] [address] King Moya Urea nitrogen [Mass/Vol] 24.0 mg/dL Critically high 7.0-18.0 [facility] Comment on above: Performed By: #### H WILMA, TSH, CMP #### [facility] [address] [place] [address] Dr. King Moya Urea nitrogen/Creatinine [Mass ratio] 17.3 mg/mg Normal [facility] Comment on above: Performed By: #### H WILMA, TSH, CMP #### [facility] [address] [place] [address] Dr. King Moya PROTIMEon 07-08-2022 INR Coag (PPP) [Relative time] 0.97 {INR} Normal [facility] Comment on above: Performed By: #### H WILMA TSH, CMP #### [facility] [address] [place] [address] Dr. King Moya INR GUIDELINES SEE BELOW Normal [facility] Comment on above: Result Comment: LORRI RED INR: 2.0 - 3.0 CONDITIONS NOT LISTED BELOW 2.5 - 3.5 FOR PROSTHETIC HEART VALVE REPLACEMENT 2.5 - 3.5 RECURRENT THROMBOSIS Performed By: #### H WILMA TSH, CMP #### [facility] [address] [place] [address] Dr. King Moya PT Coag (PPP) [Time] 10.3 s Normal 9.0-11.6 [facility] Comment on above: Performed By: #### H WILMA TSH, CMP #### [facility] [address] [place] [address] Dr. King Moya PTTon 07-08-2022 aPTT Coag (Bld) [Time] 24.8 s Normal 22.3-36.2 Th [facility] Comment on above: Performed By: #### H WILMA TSH, CMP #### [facility] [address] [place] [address] Dr. King Moya TROPONIN, HIGH SENSITIVITYon 07-08-2022 HSTROP 5.9 pg/mL Normal 4.0-51.3 [facility] Comment on above: Result Comment: CUT- OFF POINTS HAVE BEEN ESTABLISHED BASED ON THE FOURTH UNIVERSAL DEFINITIONS OF MYOCARDIAL INFARCTION. THE UPPER REFERENCE LIMIT (URL) OF TROPONIN, DEFINED THE 99TH PERCENTILE OF cTnI DISTRIBUTION IN A REFERENCE POPULATION, HAS BEEN CONFIRMED THE DECISION THRESHOLD FOR AL DIAGNOSIS. Performed By: #### H STROPN, TSH, CMP #### [facility] [address] [place] [address] Dr. King Moya TSHon 07-08-2022 TSH 6.513 uIU/mL Critically high 0.358-3.740 [facility] Comment on above: Performed By: #### H STROPN, TSH, CMP #### [facility] [address] [place] [address] Dr. King Moya URINE MICROSCOPIC ONLYon BACTERIA TRACE Abnormal NONE SEEN [facility] Comment on above: Performed By: #### H STROPN, TSH, CMP #### [facility] [address] [place] [address] Dr. King Moya Bacteria identified Cx Nom (U) INDICATED Normal [facility] Comment on above: Performed By: #### H STROPN, TSH, CMP #### [facility] [address] [place] [address] Dr. King Moya CAST SEEN Abnormal NONE SEEN [facility] Comment on above: Performed By: #### H STROPN, TSH, CMP #### [facility] [address] [place] [address] Dr. King Moya Crystals LM Nom (Urine sed) NONE SEEN Normal NONE SEEN [facility] Comment on above: Performed By: #### H STROPN, TSH, CMP #### [facility] [address] [place] [address] Dr. King Moya Epithelial cells LM Ql (Urine sed) RARE Normal NONE SEEN /RARE [facility] Comment on above: Performed By: #### H STROPN, TSH, CMP #### [facility] [address] [place] [address] Dr. King Moya HYALINE CAST RARE Normal [facility] Comment on above: Performed By: #### H STROPN, TSH, CMP #### [facility] [address] [place] [address] Dr. King Moya MUCOUS NONE SEEN Normal NONE SEEN [facility] Comment on above: Performed By: #### H STROPN, TSH, CMP #### [facility] [address] [place], [place] [address] Dr. King Moya RBC 0-2 Normal 0-2 [facility] Comment on above: Performed By: #### H STROPN, TSH, CMP #### [facility] [address] [place], [place] [address] Dr. King Moya WBC 5-10 Abnormal NONE SEEN [facility] Comment on above: Performed By: #### H STROPN, TSH, CMP #### [facility] [address] [place], [place] [address] Dr. King Moya XR CHEST 1 Von 07-08-2022 XR CHEST 1 V EXAM: XR CHEST 1 V HISTORY: SHORTNESS OF BREATH COMPARISON: None. TECHNIQUE: Single view of the chest FINDINGS: Heart size normal. No focal consolidation, pleural effusion, pulmonary congestion or pneumothorax. IMPRESSION: No acute findings. Electronically authenticated by: CLARE NUNN Date: 2022-07-08 20:02 Normal [facility] CBC with Auto Differentialon 09-23-2021 Absolute Eos # 0.37 [facility] Absolute Immature Granulocyte 0.05 [facility] Absolute Lymph # 2.94 [facility] Absolute [place] # 0.90 [facility] Basophils (Bld) [#/Vol] 0.10 10*3/uL [facility] Basophils/100 WBC (Bld) 1 % 0 - 2 % [facility] Eosinophils/100 WBC (Bld) 4 % 1 - 4 % [facility] Hematocrit (Bld) [Volume fraction] 35.5 % Low 36.3 - 47.1 % [facility] Hemoglobin (Bld) [Mass/Vol] 11.1 g/dL Low 11.9 - 15.1 g/dL [facility] Immature granulocytes/100 WBC (Bld) 1 % High 0 [facility] Interpretation and review of laboratory results Abnormal [facility] Lymphocytes/100 WBC (Bld) 28 % 24 - 43 % [facility] MCH (RBC) [Entitic mass] 31.4 pg 25.2 - 33.5 pg [facility] MCHC (RBC) [Mass/Vol] 31.3 g/dL 28.4 - 34.8 g/dL [facility] MCV (RBC) [Entitic vol] 100.3 fL 82.6 - 102.9 fL [facility] Monocytes/100 WBC (Bld) 9 % 3 - 12 % [facility] NRBC Automated 0.0 0.0 per 100 WBC [facility] Platelet distribution width (Bld) [Ratio] 11.9 % 11.8 - 14.4 % [facility] Platelet mean volume (Bld) [Entitic vol] 9.2 fL 8.1 - 13.5 fL [facility] Platelets (Bld) [#/Vol] 325 10*3/uL [facility] RBC (Bld) [#/Vol] 3.54 10*6/uL Low 3.95 - 5.1 1 m/uL [facility] Segmented neutrophils/100 WBC (Bld) 57 % 36 - 65 % [facility] Segs Absolute 6.06 [facility] WBC (Bld) [#/Vol] 10.4 10*3/uL [facility] CBC with Diffon 09-23-2021 Abs. Basophil 0.10 k/uL Normal 0.00-0.20 [facility] Comment on above: Performed By: #### C KOLBY, CP #### [facility] [address] [place] [address] Admissions Gate Attendant: Emerson Hall MD #### LIPR #### [address] [place] [address] Admissions Gate Attendant: Kyle Cowan MD Abs.Imm.Granulocyte 0.05 k/uL Normal 0.00-0.30 [facility] Comment on above: Performed By: #### C KOLBY, CP #### [facility] [address] [place] [address] Admissions Gate Attendant: Emerson Hall MD #### LIPR #### [address] [place] [address] Admissions Gate Attendant: Kyle Cowan MD Abs.Neutrophil (Seg) 6.06 k/uL Normal 1.50-8.10 [facility] Comment on above: Performed By: #### C DP, CP #### [facility] [address] [place] [place] [id number] Admissions Gate Attendant: Emerson Hall MD #### LIPR #### [address] [address] Admissions Gate Attendant: Kyle Coawn MD Basophils/100 WBC (Bld) 1 % Normal 0-2 [facility] Comment on above: Performed By: #### C DP, CP #### [address] [place] [place] [id number] Admissions Gate Attendant: Emerson Hall MD #### LIPR #### [address] [address] Admissions Gate Attendant: Kyle Cowan MD Eosinophils (Bld) [#/Vol] 0.37 10*3/uL Normal 0.00-0.44 [facility] Comment on above: Performed By: #### C DP, CP #### [address] [place] [id number] Admissions Gate Attendant: Emerson Hall MD #### LIPR #### [address] [address] Admissions Gate Attendant: Kyle Cowan MD Eosinophils/100 WBC (Bld) 4 % Normal 1-4 [facility] Comment on above: Performed By: #### C DP, CP #### [facility] [address] [place] [address] Dr. [place], [place] [id number] Admissions Gate Attendant: Emerson Hall MD #### LIPR #### [address] [address] Admissions Gate Attendant: Kyle Cowan MD Erythrocyte distribution width (RBC) [Ratio] 11.9 % Normal 11.8-14.4 [facility] Comment on above: Performed By: #### C DP, CP #### [facility] [address] [place] [address] [place], [place] [id number] Admissions Gate Attendant: Emerson Hall MD #### LIPR #### [address] [address] Admissions Gate Attendant: Kyle Cowan MD Hematocrit (Bld) [Volume fraction] 35.5 % Low 36.3-47.1 [facility] Comment on above: Performed By: #### C DP, CP #### [address] [place], [place] [id number] Admissions Gate Attendant: Emerson Hall MD #### LIPR #### [address] [address] Admissions Gate Attendant: Kyle Cowan MD Hemoglobin (Bld) [Mass/Vol] 11.1 g/dL Low 11.9-15.1 [facility] Comment on above: Performed By: #### C DP, CP #### [address] [place], [place] [id number] Admissions Gate Attendant: Emerson Hall MD #### LIPR #### [address] [address] Admissions Gate Attendant: Kyle Cowan MD Immature granulocytes/100 WBC (Bld) 1 % High 0 [facility] Comment on above: Performed By: #### C DP, CP #### [facility] [address] [place] [address] [place], [place] [id number] Admissions Gate Attendant: Emerson Hall MD #### LIPR #### [address] [address] Admissions Gate Attendant: Kyle Cowan MD Lymphocytes (Bld) [#/Vol] 2.94 10*3/uL Normal 1.10-3.70 [facility] Comment on above: Performed By: #### C DP, CP #### [facility] [address] [place] [address] Dr[address] [place] [phone] ( Admissions Gate Attendant: Emerson Hall MD #### LIPR #### [place] [address] Admissions Gate Attendant: Kyle Cowan MD Lymphocytes/100 WBC (Bld) 28 % Normal 24-43 [facility] Comment on above: Performed By: #### C DP, CP #### [address] [place] [address] Admissions Gate Attendant: Emerson Hall MD #### LIPR #### [place] [address] Admissions Gate Attendant: Kyle Coawn MD MCH (RBC) [Entitic mass] 31.4 pg Normal 25.2-33.5 [facility] Comment on above: Performed By: #### C KOLBY, CP #### [address] [place] [address] Admissions Gate Attendant: Emerson Hall MD #### LIPR #### [place] [address] Admissions Gate Attendant: Kyle Cowan MD MCHC (RBC) [Mass/Vol] 31.3 g/dL Normal 28.4-34.8 [facility] Comment on above: Performed By: #### C KOLBY, CP #### [address] [place] [phone] ( Admissions Gate Attendant: Emerson Hall MD #### LIPR #### [place] [address] Admissions Gate Attendant: Kyle Cowan MD MCV (RBC) [Entitic vol] 100.3 fL Normal 82.6-102.9 [facility] Comment on above: Performed By: #### C DP, CP #### [facility] [address] [place], [place] [id number] Admissions Gate Attendant: Emerson Hall MD #### LIPR #### [address] [id number] Admissions Gate Attendant: Kyle Cowan MD Monocytes (Bld) [#/Vol] 0.90 10*3/uL Normal 0.10-1.20 [facility] Comment on above: Performed By: #### C DP, CP #### [address] [place] [phone] ( Admissions Gate Attendant: Emerson Hall MD #### LIPR #### [place] [address] Admissions Gate Attendant: Kyle Cowan MD Monocytes/100 WBC (Bld) 9 % Normal 3-12 [facility] Comment on above: Performed By: #### C DP, CP #### [address] [place] [address]113 ( Admissions Gate Attendant: Emerson Hall MD #### LIPR #### [address] [address] Admissions Gate Attendant: Kyle Cowan MD Neutrophil (Seg) 57 % Normal 36-65 [facility] Comment on above: Performed By: #### C DP, CP #### [address] [place] [phone] Admissions Gate Attendant: Emerson Hall MD #### LIPR #### [address] [address] Admissions Gate Attendant: Kyle Cowan MD NRBC Automated 0.0 per 100 WBC Normal 0.0 [facility] Comment on above: Performed By: #### C DP, CP #### [facility] [address] [place], [place] [phone] Admissions Gate Attendant: Emerson Hall MD #### LIPR #### [address] [place], [place] [phone] Admissions Gate Attendant: Kyle Cowan MD Platelet mean volume (Bld) [Entitic vol] 9.2 fL Normal 8.1-13.5 [facility] Comment on above: Performed By: #### C DP, CP #### [facility] [address] [place], [place] [id number] Admissions Gate Attendant: Emerson Hall MD #### LIPR #### [address] [id number] Admissions Gate Attendant: Kyle Cowan MD Platelets (Bld) [#/Vol] 325 10*3/uL Normal 138-453 [facility] Comment on above: Performed By: #### C DP, CP #### [facility] [address] [place], [place] [id number] Admissions Gate Attendant: Emerson Hall MD #### LIPR #### [address] [address] Admissions Gate Attendant: Kyle Cowan MD RBC (Bld) [#/Vol] 3.54 10*6/uL Low 3.95-5.11 [facility] Comment on above: Performed By: #### C DP, CP #### [facility] [address] [place], [place] [id number] Admissions Gate Attendant: Emerson Hall MD #### LIPR #### [address] [place] [address] Admissions Gate Attendant: Kyle Cowan MD WBC (Bld) [#/Vol] 10.4 10*3/uL Normal 3.5-11.3 [facility] Comment on above: Performed By: #### C DP, CP #### [facility] [address] [place] [address] Admissions Gate Attendant: Emerson Hall MD #### STEPHANIA #### [facility] [address] [place], [place] [id number] Admissions Gate Attendant: Kyle Cowan MD Comp Metabolic Profon 2021 (cont.) Normal [facility] Comment on above: Result Comment: Aver age GFR for 70 or more years old: 75 mL/min/1.73sq m Chronic Kidney Disease: <60 mL/min/1.73sq m Kidney failure: <15 mL/min/1.73sq m eGFR calculated using average adult body mass. Additional eGFR calculator available at: http://www.Zadspace/multiple_crcl_2011.htm Performed By: #### B C #### [facility] [address] [place] [address] [place] [address] Admissions Gate Attendant: Emerson Hall MD Albumin [Mass/Vol] 3.8 g/dL Normal 3.5-5.2 [facility] Comment on above: Performed By: #### B C #### [address] [place] [address] Admissions Gate Attendant: Emerson Hall MD Albumin/Glob Ratio 1.4 Normal 1.0-2.5 [facility] Comment on above: Performed By: #### B C #### [facility] [address] [place] [address] Admissions Gate Attendant: Emerson Hall MD Alkaline Phos 69 U/L Normal 35-104 [facility] Comment on above: Performed By: #### B C #### [facility] [address] [place] [address] Admissions Gate Attendant: Emerson Hall MD ALT [Catalytic activity/Vol] 6 U/L Normal 5-33 [facility] Comment on above: Performed By: #### B C #### [facility] [address] [place], [place] [id number] Admissions Gate Attendant: Emerson Hall MD Anion gap [Moles/Vol] 6 mmol/L Low 9-17 [facility] Comment on above: Performed By: #### B C #### [facility] [address] [place], [place] [id number] Admissions Gate Attendant: Emerson Hall MD AST [Catalytic activity/Vol] 12 U/L Normal <32 [facility] Comment on above: Performed By: #### B C #### [facility] [address] [place], [place] [id number] Admissions Gate Attendant: Emerson Hall MD Bilirubin [Mass/Vol] 0.27 mg/dL Low 0.3-1.2 [facility] Comment on above: Performed By: #### B C #### [facility] [address] [place], [place] [id number] Admissions Gate Attendant: Emerson Hall MD BUN/CRE Ratio 26 High 9-20 [facility] Comment on above: Performed By: #### B C #### [facility] [address] [place], [place] [id number] Admissions Gate Attendant: Emerson Hall MD Calcium [Mass/Vol] 9.2 mg/dL Normal 8.6-10.4 [facility] Comment on above: Performed By: #### B C #### [facility] [address] [place], [place] [id number] Admissions Gate Attendant: Emerson Hall MD Chloride [Moles/Vol] 106 mmol/L Normal 98-107 [facility] Comment on above: Performed By: #### B C #### [facility] [address] [place], [place] [id number] Admissions Gate Attendant: Emerson Hall MD CO2 [Moles/Vol] 29 mmol/L Normal 20-31 [facility] Comment on above: Performed By: #### B C #### [facility] [address] [place], [place] 9463383 Admissions Gate Attendant: Emerson Hall MD Creatinine [Mass/Vol] 0.73 mg/dL Normal 0.50-0.90 [facility] Comment on above: Performed By: #### B C #### [facility] [address] [place], [place] [id number] Admissions Gate Attendant: Emerson Hall MD GFR, Amer >60 Normal >60 [facility] Comment on above: Performed By: #### B C #### [facility] [address] [place], [place] 6178083 Admissions Gate Attendant: Emerson Hall MD GFR,non Amer >60 Normal >60 [facility] Comment on above: Performed By: #### B C #### [facility] [address] [place], [place] [id number] Admissions Gate Attendant: Emerson Hall MD Glucose [Mass/Vol] 92 mg/dL Normal 70-99 [facility] Comment on above: Performed By: #### B C #### [address] [place], [place] 1378783 Admissions Gate Attendant: Emerson Hall MD Potassium [Moles/Vol] 5.1 mmol/L Normal 3.7-5.3 [facility] Comment on above: Performed By: #### B C #### [facility] [address] [place] [address] Dr. [place], [place] [id number] Admissions Gate Attendant: Emerson Hall MD Protein [Mass/Vol] 6.5 g/dL Normal 6.4-8.3 [facility] Comment on above: Performed By: #### B C #### [facility] [address] [place] [address] Dr. [place], [place] [id number] Admissions Gate Attendant: Emerson Hall MD Sodium [Moles/Vol] 141 mmol/L Normal 135-144 [facility] Comment on above: Performed By: #### B C #### [facility] [address] [place] [address] Admissions Gate Attendant: Emerson Hall MD Staging: Normal [facility] Comment on above: Result Comment: Stag e 1: Some kidney damage normal GFR Stage 2: Mild kidney damage GFR 60-89 Stage 3: Moderate kidney damage GFR 30-59 Stage 4: Severe kidney damage GFR 15-29 Stage 5: Severe kidney damage GFR <15 ESRD - chronic treatment by dialysis or transplant Performed By: #### B C #### [facility] [address] [place] [address] Admissions Gate Attendant: Emerson Hall MD Urea nitrogen [Mass/Vol] 19 mg/dL Normal 8-23 [facility] Comment on above: Performed By: #### B C #### [facility] [address] [place] [address] Admissions Gate Attendant: Emerson Hall MD [facility] Metabolic [facility] 09-23-2021 Albumin [Mass/Vol] 3.8 g/dL 3.5 - 5.2 g/dL [facility] Albumin/Globulin [Mass ratio] 1.4 {ratio} [facility] ALP (Bld) [Catalytic activity/Vol] 69 U/L 35 - 104 U/L [facility] ALT [Catalytic activity/Vol] 6 U/L 5 - 33 U/L [facility] Anion gap [Moles/Vol] 6 mmol/L Low 9 - 17 mmol/L [facility] AST [Catalytic activity/Vol] 12 U/L <32 [facility] Bilirubin [Mass/Vol] 0.27 mg/dL Low 0.3 - 1 .2 mg/dL [facility] Calcium [Mass/Vol] 9.2 mg/dL 8.6 - 10. 4 mg/dL [facility] Chloride [Moles/Vol] 106 mmol/L 98 - 10 7 mmol/L [facility] CO2 [Moles/Vol] 29 mmol/L 20 - 31 mmol/L [facility] Creatinine [Mass/Vol] 0.73 mg/dL 0.50 - 0.90 mg/dL [facility] Free PSA/Total PSA [Mass fraction] 6.5 g/dL 6.4 - 8.3 g/dL [facility] GFR >60 >60 mL/min [facility] GFR Non- >60 >60 mL/min [facility] Glucose [Mass/Vol] 92 mg/dL 70 - 99 mg/dL [facility] Interpretation and review of laboratory results Abnormal [facility] Potassium [Moles/Vol] 5.1 mmol/L 3.7 - 5.3 mmol/L [facility] Sodium [Moles/Vol] 141 mmol/L 135 - 144 mmol/L [facility] Urea nitrogen (BldV) [Mass/Vol] 19 mg/dL 8 - 23 mg/dL [facility] Urea nitrogen/Creatinine (Bld) [Mass ratio] 26 High [facility] Laboratory - Chemistry and C hemistry - challengeon 09-23-2021 GFR/1.73 sq M.predicted MDRD (S/P/Bld) [Vol rate/Area] [facility] Comment on above: Average GFR for 70 o r more years old: 75 mL/min/1.73sq m Chronic Kidney Disease: <60 mL/min/1.73sq m Kidney failure: <15 mL/min/1.73sq m eGFR calculated using average adult body mass. Additional eGFR calculator available at: http://www.Dermal Life.PayDivvy/multiple_crcl_2012.htm Stage 1: Some kidney damage normal GFR Stage 2: Mild kidney damage GFR 60-89 Stage 3: Moderate kidney damage GFR 30-59 Stage 4: Severe kidney damage GFR 15-29 Stage 5: Severe kidney damage GFR <15 ESRD - chronic treatment by dialysis or transplant Lipid Panelon 09-23-2021 Cholesterol [Mass/Vol] 150 mg/dL <200 [facility] Comment on above: Cholesterol Guidelines: <200 Desirable 200-240 Borderline >240 Undesirable Cholesterol in HDL [Mass/Vol] 48 mg/dL >40 [facility] Comment on above: HDL Guidelines: <40 Undesirable 40-59 Borderline >59 Desirable Cholesterol in LDL [Mass/Vol] 83 mg/dL 0 - 130 mg/dL [facility] Comment on above: LDL Guidelines: <100 Desirable 100-129 Near to/above Desirable 130-159 Borderline >159 Undesirable Direct (measured) LDL and calculated LDL are not interchangeable tests. Cholesterol.total/Chol esterol in HDL [Mass ratio] 3.1 {ratio} <5 [facility] Triglyceride [Mass/Vol] 97 mg/dL <150 [facility] Comment on above: Triglyceride Guidelines: <150 Desirable 150-199 Borderline 200-499 High >499 Very high Based on AHA Guidelines for fasting triglyceride, January 2012. [facility] Lipid Profileon 09-23-2021 Cholesterol [Mass/Vol] 150 mg/dL Normal <200 [facility] Comment on above: Result Comment: Cholesterol Guidelines: <200 Desirable 200-240 Borderline >240 Undesirable Performed By: #### B C #### [facility] [address] [place] [address] Admissions Gate Attendant: Emerson Hall MD Cholesterol in HDL [Mass/Vol] 48 mg/dL Normal >40 [facility] Comment on above: Result Comment: HDL Guidelines: <40 Undesirable 40-59 Borderline >59 Desirable Performed By: #### B C #### [facility] [address] [place] [address] Admissions Gate Attendant: Emerson Hall MD Cholesterol in LDL [Mass/Vol] 83 mg/dL Normal 0-130 [facility] Comment on above: Result Comment: LDL Guidelines: <100 Desirable 100-129 Near to/above Desirable 130-159 Borderline >159 Undesirable Direct (measured) LDL and calculated LDL are not interchangeable tests. Performed By: #### B C #### [facility] [address] [place] [address] Admissions Gate Attendant: Emerson Hall MD Cholesterol.total/Chol esterol in HDL [Mass ratio] 3.1 {ratio} Normal <5 [facility] Comment on above: Performed By: #### B C #### [facility] [address] [place] [address] Admissions Gate Attendant: Emerson Hall MD Triglyceride [Mass/Vol] 97 mg/dL Normal <150 [facility] Comment on above: Result Comment: Triglyceride Guidelines: <150 Desirable 150-199 Borderline 200-499 High >499 Very high Based on AHA Guidelines for fasting triglyceride, January 2012. Performed By: #### B C #### [facility] [address] [place] [address] Admissions Gate Attendant: Emerson Hall MD Lipid Profileon 04-29-2021 Cholesterol [Mass/Vol] 162 mg/dL Normal <200 [facility] Comment on above: Result Comment: Cholesterol Guidelines: <200 Desirable 200-240 Borderline >240 Undesirable Performed By: #### C DP, CP #### [address] [place] [address] Admissions Gate Attendant: Emerson Hall MD #### LIPR #### [place] [address] [place], [place] [id number] Admissions Gate Attendant: Kyle Cowan MD Cholesterol in HDL [Mass/Vol] 58 mg/dL Normal >40 [facility] Comment on above: Result Comment: HDL Guidelines: <40 Undesirable 40-59 Borderline >59 Desirable Performed By: #### C DP, CP #### [address] [place] [address] Admissions Gate Attendant: Emerson Hall MD #### LIPR #### [address] [place], [place] 0858108 Admissions Gate Attendant: Kyle Cowan MD Cholesterol in LDL [Mass/Vol] 86 mg/dL Normal 0-130 [facility] Comment on above: Result Comment: LDL Guidelines: <100 Desirable 100-129 Near to/above Desirable 130-159 Borderline >159 Undesirable Direct (measured) LDL and calculated LDL are not interchangeable tests. Performed By: #### C DP, CP #### [address] [place] [id number] Admissions Gate Attendant: Emerson Hall MD #### LIPR #### [address] [place], [place] [id number] Admissions Gate Attendant: Kyle Cowan MD Cholesterol.total/Chol esterol in HDL [Mass ratio] 2.8 {ratio} Normal <5 [facility] Comment on above: Performed By: #### C DP, CP #### [facility] [address] [place] [address] [place] [id number] Admissions Gate Attendant: Emerson Hall MD #### LIPR #### [place] [id number] Admissions Gate Attendant: Kyle Cowan MD Triglyceride [Mass/Vol] 88 mg/dL Normal <150 [facility] Comment on above: Result Comment: Triglyceride Guidelines: <150 Desirable 150-199 Borderline 200-499 High >499 Very high Based on AHA Guidelines for fasting triglyceride, January 2012. Performed By: #### C DP, CP #### [facility] [address] [place] [address] [place] 1497183 Admissions Gate Attendant: Emerson Hall MD #### LIPR #### [place] [address] Admissions Gate Attendant: Kyle Cowan MD CBC with Diffon 04-28-2021 Abs. Basophil 0.06 k/uL Normal 0.00-0.20 [facility] Comment on above: Performed By: #### C DP, CP #### [facility] [address] [place] [address] [place] [address] Admissions Gate Attendant: Emerson Hall MD #### LIPR #### [address] [id number] Admissions Gate Attendant: Kyle Cowan MD Abs.Imm.Granulocyte <0.03 Normal 0.00-0.30 [facility] Comment on above: Performed By: #### C DP, CP #### [address] [place] 1497183 Admissions Gate Attendant: Emerson Hall MD #### LIPR #### [address] [id number] Admissions Gate Attendant: Kyle Cowan MD Abs.Neutrophil (Seg) 5.78 k/uL Normal 1.50-8.10 [facility] Comment on above: Performed By: #### C DP, CP #### [address] [place] 1497183 Admissions Gate Attendant: Emerson Hall MD #### LIPR #### [place] [id number] Admissions Gate Attendant: Kyle Cowan MD Basophils/100 WBC (Bld) 1 % Normal 0-2 [facility] Comment on above: Performed By: #### C DP, CP #### [address] [place] 1497183 Admissions Gate Attendant: Emerson Hall MD #### LIPR #### [place] [address] Admissions Gate Attendant: Kyle Cowan MD Eosinophils (Bld) [#/Vol] 0.19 10*3/uL Normal 0.00-0.44 [facility] Comment on above: Performed By: #### C DP, CP #### [address] [place] 1497183 Admissions Gate Attendant: Emerson Hall MD #### LIPR #### [place] [address] Admissions Gate Attendant: Kyle Cowan MD Eosinophils/100 WBC (Bld) 2 % Normal 1-4 [facility] Comment on above: Performed By: #### C DP, CP #### [address] [place] [address] Admissions Gate Attendant: Emerson Hall MD #### LIPR #### [address] [place], [place] 2500108 Admissions Gate Attendant: Kyle Cowan MD Erythrocyte distribution width (RBC) [Ratio] 12.3 % Normal 11.8-14.4 [facility] Comment on above: Performed By: #### C DP, CP #### [address] [place] 1497183 Admissions Gate Attendant: Emerson Hall MD #### LIPR #### [address] [id number] Admissions Gate Attendant: Kyle Cowan MD Hematocrit (Bld) [Volume fraction] 37.6 % Normal 36.3-47.1 [facility] Comment on above: Performed By: #### C DP, CP #### [address] [place] 1497183 Admissions Gate Attendant: Emerson Hall MD #### LIPR #### [address] [id number] Admissions Gate Attendant: Kyle Cowan MD Hemoglobin (Bld) [Mass/Vol] 12.1 g/dL Normal 11.9-15.1 [facility] Comment on above: Performed By: #### C DP, CP #### [address] [place] 1497183 Admissions Gate Attendant: Emerson Hall MD #### LIPR #### [address] [id number] Admissions Gate Attendant: Kyle Cowan MD Immature granulocytes/100 WBC (Bld) 0 % Normal 0 [facility] Comment on above: Performed By: #### C DP, CP #### [address] [place] [address] Admissions Gate Attendant: Emerson Hall MD #### LIPR #### [address] [phone] Admissions Gate Attendant: Kyle Cowan MD Lymphocytes (Bld) [#/Vol] 3.12 10*3/uL Normal 1.10-3.70 [facility] Comment on above: Performed By: #### C DP, CP #### [facility] [address] [place] [address] [place] [address] Admissions Gate Attendant: Emerson Hall MD #### LIPR #### [address] [id number] Admissions Gate Attendant: Kyle Cowan MD Lymphocytes/100 WBC (Bld) 32 % Normal 24-43 [facility] Comment on above: Performed By: #### C DP, CP #### [address] [place] [address] Admissions Gate Attendant: Emerson Hall MD #### LIPR #### [address] [address] Admissions Gate Attendant: Klye Cowan MD MCH (RBC) [Entitic mass] 31.6 pg Normal 25.2-33.5 [facility] Comment on above: Performed By: #### C DP, CP #### [address] [place] 1497183 Admissions Gate Attendant: Emerson Hall MD #### LIPR #### [address] [address] Admissions Gate Attendant: Kyle Cowan MD MCHC (RBC) [Mass/Vol] 32.2 g/dL Normal 28.4-34.8 [facility] Comment on above: Performed By: #### C DP, CP #### [address] [place] 1497183 Admissions Gate Attendant: Emerson Hall MD #### LIPR #### [address] [place] [address] Admissions Gate Attendant: Kyle Cowan MD MCV (RBC) [Entitic vol] 98.2 fL Normal 82.6-102.9 [facility] Comment on above: Performed By: #### C DP, CP #### [facility] [address] [place] [address] [place], [place] [id number] Admissions Gate Attendant: Emerson Hall MD #### LIPR #### [address] [address] Admissions Gate Attendant: Kyle Cowan MD Monocytes (Bld) [#/Vol] 0.69 10*3/uL Normal 0.10-1.20 [facility] Comment on above: Performed By: #### C DP, CP #### [address] [place] 1497183 Admissions Gate Attendant: Emerson Hall MD #### LIPR #### [address] [address] Admissions Gate Attendant: Kyle Cowan MD Monocytes/100 WBC (Bld) 7 % Normal 3-12 [facility] Comment on above: Performed By: #### C DP, CP #### [address] [place], [place] 1923683 Admissions Gate Attendant: Emerson Hall MD #### LIPR #### [address] [address] Admissions Gate Attendant: Kyle Cowan MD Neutrophil (Seg) 58 % Normal 36-65 [facility] Comment on above: Performed By: #### C DP, CP #### [address] [place] [address] Admissions Gate Attendant: Emerson Hall MD #### LIPR #### [address] [address] Admissions Gate Attendant: Kyle Cowan MD NRBC Automated 0.0 per 100 WBC Normal 0.0 [facility] Comment on above: Performed By: #### C DP, CP #### [facility] [address] [place] [address] Admissions Gate Attendant: Emerson Hall MD #### LIPR #### [address] [id number] Admissions Gate Attendant: Kyle Cowan MD Platelet mean volume (Bld) [Entitic vol] 9.8 fL Normal 8.1-13.5 [facility] Comment on above: Performed By: #### C DP, CP #### [address] [place] [address] Admissions Gate Attendant: Emerson Hall MD #### LIPR #### [place] [id number] Admissions Gate Attendant: Kyle Cowan MD Platelets (Bld) [#/Vol] 299 10*3/uL Normal 138-453 [facility] Comment on above: Performed By: #### C DP, CP #### [address] [place] [address] Admissions Gate Attendant: Emerson Hall MD #### LIPR #### [place] [address] Admissions Gate Attendant: Kyle Cowan MD RBC (Bld) [#/Vol] 3.83 10*6/uL Low 3.95-5.11 [facility] Comment on above: Performed By: #### C DP, CP #### [address] [place] [address] Admissions Gate Attendant: Emerson Hall MD #### LIPR #### [address] [id number] Admissions Gate Attendant: Kyle Cowan MD WBC (Bld) [#/Vol] 9.9 10*3/uL Normal 3.5-11.3 [facility] Comment on above: Performed By: #### C DP, CP #### [facility] [address] [place] [address] [place] [address] Admissions Gate Attendant: Emerson Hall MD #### LIPR #### [address] [address] Admissions Gate Attendant: Kyle Cowan MD Auto Diff Performed NOT REPORTED Normal [facility] Comment on above: Performed By: #### C DP, CP #### [address] [place] [address] Admissions Gate Attendant: Emerson Hall MD #### LIPR #### [address] [address] Admissions Gate Attendant: Kyle Cowan MD Platelet Comment NOT REPORTED Normal [facility] Comment on above: Performed By: #### C DP, CP #### [address] [place] [address] Admissions Gate Attendant: Emerson Hall MD #### LIPR #### [address] [address] Admissions Gate Attendant: Kyle Cowan MD RBC morphology finding Nom (Bld) NOT REPORTED Normal [facility] Comment on above: Performed By: #### C DP, CP #### [address] [place] [address] Admissions Gate Attendant: Emerson Hall MD #### LIPR #### [address] [address] Admissions Gate Attendant: Kyle Cowan MD WBC Morphology NOT REPORTED Normal [facility] Comment on above: Performed By: #### C DP, CP #### [address] [place] [address] Admissions Gate Attendant: Emerson Hall MD #### LIPR #### [address] [place] [address] Admissions Gate Attendant: Kyle Cowan MD Comp Metabolic Profon 2021 (cont.) Normal [facility] Comment on above: Result Comment: Aver age GFR for 70 or more years old: 75 mL/min/1.73sq m Chronic Kidney Disease: <60 mL/min/1.73sq m Kidney failure: <15 mL/min/1.73sq m eGFR calculated using average adult body mass. Additional eGFR calculator available at: http://www.Zadspace/multiple_crcl_2011.htm Performed By: #### C KOLBY, CP #### [address] [place] [address] Admissions Gate Attendant: Emerson Hall MD #### LIPR #### [address] [address] Admissions Gate Attendant: Kyle Cowan MD Albumin [Mass/Vol] 4.0 g/dL Normal 3.5-5.2 [facility] Comment on above: Performed By: #### C DP, CP #### [address] [place] [address] Admissions Gate Attendant: Emerson Hall MD #### LIPR #### [address] [address] Admissions Gate Attendant: Kyle Cowan MD Albumin/Glob Ratio 1.5 Normal 1.0-2.5 [facility] Comment on above: Performed By: #### C DP, CP #### [facility] [address] [place] [address] [place] [address] Admissions Gate Attendant: Emerson Hall MD #### LIPR #### [address] [address] Admissions Gate Attendant: Kyle Cowan MD Alkaline Phos 72 U/L Normal 35-104 [facility] Comment on above: Performed By: #### C DP, CP #### [facility] [address] [place], [place] 1183383 Admissions Gate Attendant: Emerson Hlal MD #### LIPR #### [address] [address] Admissions Gate Attendant: Kyle Cowan MD ALT [Catalytic activity/Vol] 10 U/L Normal 5-33 [facility] Comment on above: Performed By: #### C DP, CP #### [facility] [address] [place], [place] 0805083 Admissions Gate Attendant: Emerson Hall MD #### LIPR #### [address] [address] Admissions Gate Attendant: Kyle Cowan MD Anion gap [Moles/Vol] 11 mmol/L Normal 9-17 [facility] Comment on above: Performed By: #### C DP, CP #### [facility] [address] [place], [place] 1124283 Admissions Gate Attendant: Emerson Hall MD #### LIPR #### [address] [address] Admissions Gate Attendant: Kyle Cowan MD AST [Catalytic activity/Vol] 17 U/L Normal <32 [facility] Comment on above: Performed By: #### C DP, CP #### [facility] [address] [place] [address] Admissions Gate Attendant: Emerson Hall MD #### LIPR #### [address] [address] Admissions Gate Attendant: Kyle Cowan MD Bilirubin [Mass/Vol] 0.25 mg/dL Low 0.3-1.2 [facility] Comment on above: Performed By: #### C DP, CP #### [facility] [address] [place], [place] 2272883 Admissions Gate Attendant: Emerson Hall MD #### LIPR #### [address] [place] [address] Admissions Gate Attendant: Kyle Cowan MD BUN/CRE Ratio 37 High 9-20 [facility] Comment on above: Performed By: #### C DP, CP #### [facility] [address] [place], [place] 699[address]83 Admissions Gate Attendant: Emerson Hall MD #### LIPR #### [address] [address] Admissions Gate Attendant: Kyle Cowan MD Calcium [Mass/Vol] 9.4 mg/dL Normal 8.6-10.4 [facility] [facility] Comment on above: Performed By: #### C DP, CP #### [facility] [address] [place] [address] Dr[place], [place] [phone] Admissions Gate Attendant: Emerson Hall MD #### LIPR #### [address] [address] Admissions Gate Attendant: Kyle Cowan MD Chloride [Moles/Vol] 105 mmol/L Normal 98-107 [facility] Comment on above: Performed By: #### C DP, CP #### [facility] [address] [place] [address] Dr. Godinez, [place] [id number] Admissions Gate Attendant: Emerson Hall MD #### LIPR #### [address] [address] Admissions Gate Attendant: Kyle Cowan MD CO2 [Moles/Vol] 23 mmol/L Normal 20-31 [facility] Comment on above: Performed By: #### C DP, CP #### [facility] [address] [place] [address] Dr. [place], [place] [phone] Admissions Gate Attendant: Emerson Hall MD #### LIPR #### [address] [address] Admissions Gate Attendant: Kyle Cowan MD Creatinine [Mass/Vol] 0.51 mg/dL Normal 0.50-0.90 [facility] Comment on above: Performed By: #### C DP, CP #### [facility] [address] [place], [place] [id number] Admissions Gate Attendant: Emerson Hall MD #### LIPR #### [address] [address] Admissions Gate Attendant: Kyle Cowan MD GFR, Amer >60 Normal >60 [facility] Comment on above: Performed By: #### C DP, CP #### [facility] [address] [place] [address] Dr[place], [place] [phone] Admissions Gate Attendant: Emerson Hall MD #### LIPR #### [address] [address] Admissions Gate Attendant: Kyle Cowan MD GFR,non Amer >60 Normal >60 [facility] Comment on above: Performed By: #### C DP, CP #### [address] [place] [address] Admissions Gate Attendant: Emerson Hall MD #### LIPR #### [address] [address] Admissions Gate Attendant: Kyle Cowan MD Glucose [Mass/Vol] 97 mg/dL Normal 70-99 [facility] Comment on above: Performed By: #### C DP, CP #### [facility] [address] [place] [address] [place] [address] Admissions Gate Attendant: Emerson Hall MD #### LIPR #### [address] [address] Admissions Gate Attendant: Kyle Cowan MD Potassium [Moles/Vol] 4.7 mmol/L Normal 3.7-5.3 [facility] Comment on above: Performed By: #### C DP, CP #### [facility] [address] [place], [place] [phone] Admissions Gate Attendant: Emerson Hall MD #### LIPR #### [address] [id number] Admissions Gate Attendant: Kyle Cowan MD Protein [Mass/Vol] 6.6 g/dL Normal 6.4-8.3 [facility] Comment on above: Performed By: #### C DP, CP #### [address] [place], [place] [phone] Admissions Gate Attendant: Emerson Hall MD #### LIPR #### [address] [phone] Admissions Gate Attendant: Kyle Cowan MD Sodium [Moles/Vol] 139 mmol/L Normal 135-144 [facility] Comment on above: Performed By: #### C KOLBY, CP #### [address] [place], [place] 4477383 Admissions Gate Attendant: Emerson Hall MD #### LIPR #### [address] [id number] Admissions Gate Attendant: Kyle Cowan MD Staging: Normal [facility] Comment on above: Result Comment: Stag e 1: Some kidney damage normal GFR Stage 2: Mild kidney damage GFR 60-89 Stage 3: Moderate kidney damage GFR 30-59 Stage 4: Severe kidney damage GFR 15-29 Stage 5: Severe kidney damage GFR <15 ESRD - chronic treatment by dialysis or transplant Performed By: #### C DP, CP #### [address] [place], [place] 0446283 Admissions Gate Attendant: Emerson Hall MD #### LIPR #### [address] [id number] Admissions Gate Attendant: Kyle Cowan MD Urea nitrogen [Mass/Vol] 19 mg/dL Normal 8-23 [facility] Comment on above: Performed By: #### C DP, CP #### [facility] [address] [place] [address] Admissions Gate Attendant: Emerson Hall MD #### LIPR #### [facility] [address], [place] [phone] Admissions Gate Attendant: Kyle Cowan MD Lipid Profileon 04-28-2021 Cholesterol,VLDL NOT REPORTED Normal 1-30 [facility] Comment on above: Performed By: #### C DP, CP #### [address] [place] [address] Admissions Gate Attendant: Emerson Hall MD #### LIPR #### [facility] [address], [place] [phone] Admissions Gate Attendant: Kyle Cowan MD Cult,Bloodon 10-25-2020 Cult,Blood Specimen Description .BLOOD Special Requests R AC 14ML Culture NO GROWTH 6 DAYS Report Status FINAL 10/25/2020 [facility] Comment on above: Performed By: #### B C #### [address] [place] [address] Admissions Gate Attendant: Emerson Hall MD Cult,Blood Specimen Description .BLOOD Special Requests L HAND 2ML Culture NO GROWTH 6 DAYS Report Status FINAL 10/25/2020 [facility] Comment on above: Performed By: #### B C #### [address] [place] [address] Admissions Gate Attendant: Emerson Hall MD CBCon 10-20-2020 Erythrocyte distribution width (RBC) [Ratio] 12.3 % Normal 11.8-14.4 [facility] Comment on above: Performed By: #### B C #### [address] [place] [id number] Admissions Gate Attendant: Emerson Hall MD Hematocrit (Bld) [Volume fraction] 34.0 % Low 36.3-47.1 [facility] Comment on above: Performed By: #### B C #### [facility] [address] [place] [address] Dr. God[place], [place] [phone] Admissions Gate Attendant: Emerson Hall MD Hemoglobin (Bld) [Mass/Vol] 11.3 g/dL Low 11.9-15.1 [facility] Comment on above: Performed By: #### B C #### [address] [place], [facility]83 Admissions Gate Attendant: Emerson Hall MD MCH (RBC) [Entitic mass] 31.5 pg Normal 25.2-33.5 [facility] Comment on above: Performed By: #### B C #### [address] Godinez, [facility] Admissions Gate Attendant: Emerson Hall MD MCHC (RBC) [Mass/Vol] 33.2 g/dL Normal 28.4-34.8 [facility] Comment on above: Performed By: #### B C #### [address] [place], [place] [phone] Admissions Gate Attendant: Emerson Hall MD MCV (RBC) [Entitic vol] 94.7 fL Normal 82.6-102.9 [facility] Comment on above: Performed By: #### B C #### [facility] [address] [place] [address] [place] [address] Admissions Gate Attendant: Emerson Hall MD NRBC Automated 0.0 per 100 WBC Normal 0.0 [facility] Comment on above: Performed By: #### B C #### [facility] [address] [place] [address] Dr. [place], [place] [phone] Admissions Gate Attendant: Emerson Hall MD Platelet mean volume (Bld) [Entitic vol] 8.9 fL Normal 8.1-13.5 [facility] Comment on above: Performed By: #### B C #### [facility] [address] [place] [address] Admissions Gate Attendant: Emerson Hall MD Platelets (Bld) [#/Vol] 191 10*3/uL Normal 138-453 [facility] Comment on above: Performed By: #### B C #### [facility] [address] [place] [address] Admissions Gate Attendant: Emerson Hall MD RBC (Bld) [#/Vol] 3.59 10*6/uL Low 3.95-5.11 [facility] Comment on above: Performed By: #### B C #### [facility] [address] [place] [address] Admissions Gate Attendant: Emerson Hall MD WBC (Bld) [#/Vol] 8.5 10*3/uL Normal 3.5-11.3 [facility] Comment on above: Performed By: #### B C #### [facility] [address] [place] [address] Admissions Gate Attendant: Emerson Hall MD CBCOrdered By: Casandra Cerda on 10-20-2020 Hematocrit (Bld) [Volume fraction] 34.0 % Low 36.3 - 47.1 % [facility] Phone: Hemoglobin.gastrointes tinal spec 1 Ql (Stl) 11.3 g/dL Low 11.9 - 15.1 g/dL [facility] Phone: Interpretation and review of laboratory results Abnormal [employer] Phone: MCH (RBC) [Entitic mass] 31.5 pg 25.2 - 33.5 pg [employer] Phone: MCHC (RBC) [Mass/Vol] 33.2 g/dL 28.4 - 34.8 g/dL [employer] Phone: MCV (RBC) [Entitic vol] 94.7 fL 82.6 - 102.9 fL [employer] Phone: NRBC Automated 0.0 0.0 per 100 WBC [employer] Phone: Platelet distribution width (Bld) [Ratio] 12.3 % 11.8 - 14.4 % [employer] Phone: Platelet mean volume (Bld) [Entitic vol] 8.9 fL 8.1 - 13.5 fL [employer] Phone: Platelets (Bld) [#/Vol] 191 10*3/uL [employer] Phone: RBC (Bld) [#/Vol] 3.59 10*6/uL Low 3.95 - 5.1 1 m/uL [employer] Phone: WBC (Bld) [#/Vol] 8.5 10*3/uL [employer] Phone: [employer] Phone: CBC Auto DifferentialOrdered By: Radu Worrell on 10-20-2020 Absolute Eos # 0.27 [employer] [facility] Work Phone: Comment on above: CORRECTED ON 10/20 A T 0933: PREVIOUSLY REPORTED 0.54 Absolute Immature Granulocyte 0.00 [employer] [facility] Work Phone: Absolute Lymph # 4.86 High [employer] [facility] Work Phone: Comment on above: CORRECTED ON 10/20 A T 0933: PREVIOUSLY REPORTED 3.11 Absolute [place] # 1.08 High [employer] [facility] Work Phone: Comment on above: CORRECTED ON 10/20 A T 0933: PREVIOUSLY REPORTED 0.54 Basophils (Bld) [#/Vol] 0.14 10*3/uL [employer] Work Phone: Comment on above: CORRECTED ON 10/20 A T 0933: PREVIOUSLY REPORTED 0.00 Basophils/100 WBC (Bld) 1 % 0 - 2 % [employer] Phone: Comment on above: CORRECTED ON 10/20 A T 0933: PREVIOUSLY REPORTED 0 Differential Type NOT REPORTED [employer] Phone: Eosinophils/100 WBC (Bld) 2 % 1 - 4 % [employer] Phone: Comment on above: CORRECTED ON 10/20 A T 0933: PREVIOUSLY REPORTED 4 Hematocrit (Bld) [Volume fraction] 36.4 % 36.3 - 47.1 % [employer] Phone: Hemoglobin.gastrointes tinal spec 1 Ql (Stl) 12.1 g/dL 11.9 - 15.1 g/dL [employer] Phone: Immature granulocytes/100 WBC (Bld) 0 % 0 [employer] Phone: Interpretation and review of laboratory results Abnormal [employer] Phone: Lymphocytes/100 WBC (Bld) 36 % 24 - 44 % [employer] Phone: Comment on above: CORRECTED ON 10/20 A T 0933: PREVIOUSLY REPORTED 23 MCH (RBC) [Entitic mass] 31.0 pg 25.2 - 33.5 pg [employer] Phone: MCHC (RBC) [Mass/Vol] 33.2 g/dL 28.4 - 34.8 g/dL [employer] Phone: MCV (RBC) [Entitic vol] 93.3 fL 82.6 - 102.9 fL [employer] Phone: Monocytes/100 WBC (Bld) 8 % High 1 - 7 % [employer] Phone: Comment on above: CORRECTED ON 10/20 A T 0933: PREVIOUSLY REPORTED 4 Morphology Elliott (Bld) [Interp] Normal [employer] Phone: nRBC 0 0 per 100 WBC [employer] Work Phone: Comment on above: CORRECTED ON 10/20 A T 0933: PREVIOUSLY REPORTED 9 NRBC Automated 0.0 0.0 per 100 WBC [employer] Phone: Platelet distribution width (Bld) [Ratio] 12.3 % 11.8 - 14.4 % [employer] Work Phone: Platelet Estimate NOT REPORTED [employer] Phone: Platelet mean volume (Bld) [Entitic vol] 9.3 fL 8.1 - 13.5 fL [employer] Phone: Platelets (Bld) [#/Vol] 281 10*3/uL [employer] Phone: RBC (Bld) [#/Vol] 3.90 10*6/uL Low 3.95 - 5.1 1 m/uL [employer] Work Phone: RBC (Bld) [#/Vol] NOT REPORTED [employer] Work Phone: Seg Neutrophils 53 % 36 - 66 % [employer] [facility] Work Phone: Comment on above: CORRECTED ON 10/20 A T 0933: PREVIOUSLY REPORTED 69 Segs Absolute 7.15 [employer] [facility] Work Phone: Comment on above: CORRECTED ON 10/20 A T 0933: PREVIOUSLY REPORTED 9.31 WBC (Bld) [#/Vol] 13.5 10*3/uL High [employer] Work Phone: WBC (Bld) [#/Vol] NOT REPORTED [employer] Work Phone: [employer] Work Phone: CBC with Diffon 10-20-2020 Abs. Basophil 0.14 k/uL Normal 0.0-0.2 [facility] Comment on above: Result Comment: GIOVANA ECTED ON 10/20 AT 0933: PREVIOUSLY REPORTED 0.00 Performed By: #### B C #### [facility] [address] [place], [place] [phone] Admissions Gate Attendant: Emerson Hall MD Abs.Neutrophil (Seg) 7.15 k/uL Normal 1.8-7.7 [facility] Comment on above: Result Comment: GIOVANA ECTED ON 10/20 AT 0933: PREVIOUSLY REPORTED 9.31 Performed By: #### B C #### [facility] [address] [place], [place] 5921983 Admissions Gate Attendant: Emerson Hall MD Basophils/100 WBC (Bld) 1 % Normal 0-2 [facility] Comment on above: Result Comment: GIOVANA ECTED ON 10/20 AT 0933: PREVIOUSLY REPORTED 0 Performed By: #### B C #### [address] [place], [place] 1014483 Admissions Gate Attendant: Emerson Hall MD Eosinophils (Bld) [#/Vol] 0.27 10*3/uL Normal 0.0-0.4 [facility] Comment on above: Result Comment: GIOVANA ECTED ON 10/20 AT 0933: PREVIOUSLY REPORTED 0.54 Performed By: #### B C #### [address] [place], [place] 3704783 Admissions Gate Attendant: Emerson Hall MD Eosinophils/100 WBC (Bld) 2 % Normal 1-4 [facility] Comment on above: Result Comment: GIOVANA ECTED ON 10/20 AT 932: PREVIOUSLY REPORTED 4 Performed By: #### B C #### [facility] [address] [place], [place] 1147883 Admissions Gate Attendant: Emerson Hall MD Lymphocytes (Bld) [#/Vol] 4.86 10*3/uL High 1.0-4.8 [facility] Comment on above: Result Comment: GIOVANA ECTED ON 10/20 AT 0933: PREVIOUSLY REPORTED 3.11 Performed By: #### B C #### [facility] [address] [place], [place] 1098183 Admissions Gate Attendant: Emerson Hall MD Lymphocytes/100 WBC (Bld) 36 % Normal 24-44 [facility] Comment on above: Result Comment: GIOVANA ECTED ON 10/20 AT 0933: PREVIOUSLY REPORTED 23 Performed By: #### B C #### [facility] [address] [place], [place] [phone] Admissions Gate Attendant: Emerson Hall MD Monocytes (Bld) [#/Vol] 1.08 10*3/uL High 0.1-0.8 [facility] Comment on above: Result Comment: GIOVANA ECTED ON 10/20 AT 09: PREVIOUSLY REPORTED 0.54 Performed By: #### B C #### [address] [place] [phone] Admissions Gate Attendant: Emerson Hall MD Monocytes/100 WBC (Bld) 8 % High 1-7 [facility] Comment on above: Result Comment: GIOVANA ECTED ON 10/20 AT 0933: PREVIOUSLY REPORTED 4 Performed By: #### B C #### [address] [place], [place] 7819783 Admissions Gate Attendant: Emerson Hall MD Neutrophil (Seg) 53 % Normal 36-66 [facility] Comment on above: Result Comment: GIOVANA ECTED ON 10/20 AT 932: PREVIOUSLY REPORTED 69 Performed By: #### B C #### [facility] [address] [place], [place] 1267183 Admissions Gate Attendant: Emerson Hall MD Nucleated RBC'S 0 per 100 WBC Normal 0 [facility] Comment on above: Result Comment: GIOVANA ECTED ON 10/20 AT 0933: PREVIOUSLY REPORTED 9 Performed By: #### B C #### [facility] [address] [place] [address] Admissions Gate Attendant: Emerson Hall MD Comp Metabolic Pr/rfx MGon 0 7-13-2021 (cont.) Normal [facility] Comment on above: Result Comment: Aver age GFR for 70 or more years old: 75 mL/min/1.73sq m Chronic Kidney Disease: <60 mL/min/1.73sq m Kidney failure: <15 mL/min/1.73sq m eGFR calculated using average adult body mass. Additional eGFR calculator available at: http://www.Zadspace/multiple_crcl_2011.htm Performed By: #### B C #### [facility] [address] [place] [address] [place] [address] Admissions Gate Attendant: Emerson Hall MD Albumin [Mass/Vol] 3.1 g/dL Low 3.5-5.2 [facility] Comment on above: Performed By: #### B C #### [address] [place] [address] Admissions Gate Attendant: Emerson Hall MD Albumin/Glob Ratio 1.2 Normal 1.0-2.5 [facility] Comment on above: Performed By: #### B C #### [address] [place], [place] [phone] Admissions Gate Attendant: Emerson Hall MD Alkaline Phos 64 U/L Normal 35-104 [facility] Comment on above: Performed By: #### B C #### [facility] [address] [place] [address] Dr. [place], [place] 4582983 Admissions Gate Attendant: Emerson Hall MD ALT [Catalytic activity/Vol] 7 U/L Normal 5-33 [facility] Comment on above: Performed By: #### B C #### [address] [place] [address] Admissions Gate Attendant: Emerson Hall MD Anion gap [Moles/Vol] 10 mmol/L Normal 9-17 [facility] Comment on above: Performed By: #### B C #### [address] [place] [phone] Admissions Gate Attendant: Emerson Hall MD AST [Catalytic activity/Vol] 13 U/L Normal <32 [facility] Comment on above: Performed By: #### B C #### [facility] [address] [place], [place] [phone] Admissions Gate Attendant: Emerson Hall MD Bilirubin [Mass/Vol] 0.17 mg/dL Low 0.3-1.2 [facility] Comment on above: Performed By: #### B C #### [facility] [address] [place], [place] 3656083 Admissions Gate Attendant: Emerson Hall MD BUN/CRE Ratio 20 Normal 9-20 [facility] Comment on above: Performed By: #### B C #### [facility] [address] [place], [place] 3564783 Admissions Gate Attendant: Emerson Hall MD Calcium [Mass/Vol] 8.6 mg/dL Normal 8.6-10.4 [facility] Comment on above: Performed By: #### B C #### [facility] [address] [place], [place] 7437283 Admissions Gate Attendant: Emerson Hall MD Chloride [Moles/Vol] 103 mmol/L Normal 98-107 [facility] Comment on above: Performed By: #### B C #### [facility] [address] [place], [place] 7983383 Admissions Gate Attendant: Emerson Hall MD CO2 [Moles/Vol] 22 mmol/L Normal 20-31 [facility] Comment on above: Performed By: #### B C #### [facility] [address] [place], [place] 2394483 Admissions Gate Attendant: Emerson Hall MD Creatinine [Mass/Vol] 0.61 mg/dL Normal 0.50-0.90 [facility] Comment on above: Performed By: #### B C #### [facility] [address] [place], [place] 1029483 Admissions Gate Attendant: Emerson Hall MD GFR, Amer >60 Normal >60 [facility] Comment on above: Performed By: #### B C #### [facility] [address] [place], [place] 0234283 Admissions Gate Attendant: Emerson Hall MD GFR,non Amer >60 Normal >60 [facility] Comment on above: Performed By: #### B C #### [facility] [address] [place], [place] 8292583 Admissions Gate Attendant: Emerson Hall MD Glucose [Mass/Vol] 91 mg/dL Normal 70-99 [facility] Comment on above: Performed By: #### B C #### [facility] [address] [place], [place] 8115183 Admissions Gate Attendant: Emerson Hall MD Potassium [Moles/Vol] 4.5 mmol/L Normal 3.7-5.3 [facility] Comment on above: Performed By: #### B C #### [facility] [address] [place] [address] Dr. [place], [place] [phone] Admissions Gate Attendant: Emerson Hall MD Protein [Mass/Vol] 5.6 g/dL Low 6.4-8.3 [facility] Comment on above: Performed By: #### B C #### [facility] [address] [place], [place] 7432783 Admissions Gate Attendant: Emerson Hall MD Sodium [Moles/Vol] 135 mmol/L Normal 135-144 [facility] Comment on above: Performed By: #### B C #### [facility] [address] [place], [place] 7253283 Admissions Gate Attendant: Emerson Hall MD Staging: Normal [facility] Comment on above: Result Comment: Stag e 1: Some kidney damage normal GFR Stage 2: Mild kidney damage GFR 60-89 Stage 3: Moderate kidney damage GFR 30-59 Stage 4: Severe kidney damage GFR 15-29 Stage 5: Severe kidney damage GFR <15 ESRD - chronic treatment by dialysis or transplant Performed By: #### B C #### [facility] [address] [place] [address] Admissions Gate Attendant: Emerson Hall MD Urea nitrogen [Mass/Vol] 12 mg/dL Normal 8-23 [facility] Comment on above: Performed By: #### B C #### [facility] [address] [place] [address] Admissions Gate Attendant: Emerson Hall MD Comprehensive Metabolic Pane l w/ Reflex to MGOrdered By: Casandra Cerda on 10-20-2020 Albumin [Mass/Vol] 3.1 g/dL Low 3.5 - 5.2 g/dL [employer] Phone: Albumin/Globulin [Mass ratio] 1.2 {ratio} [employer] Phone: ALP (Bld) [Catalytic activity/Vol] 64 U/L 35 - 104 U/L [employer] Phone: ALT [Catalytic activity/Vol] 7 U/L 5 - 33 U/L [employer] Phone: Anion gap [Moles/Vol] 10 mmol/L 9 - 17 mmol/L [employer] Phone: AST [Catalytic activity/Vol] 13 U/L <32 [employer] Phone: Bilirubin [Mass/Vol] 0.17 mg/dL Low 0.3 - 1 .2 mg/dL [employer] Phone: Calcium [Mass/Vol] 8.6 mg/dL 8.6 - 10. 4 mg/dL [employer] Phone: Chloride [Moles/Vol] 103 mmol/L 98 - 10 7 mmol/L [employer] Phone: CO2 [Moles/Vol] 22 mmol/L 20 - 31 mmol/L [employer] Phone: Creatinine [Mass/Vol] 0.61 mg/dL 0.50 - 0.90 mg/dL [employer] Phone: Free PSA/Total PSA [Mass fraction] 5.6 g/dL Low 6.4 - 8.3 g/dL [employer] Phone: GFR >60 >60 mL/min [employer] Phone: GFR Non- >60 >60 mL/min [employer] Phone: Glucose [Mass/Vol] 91 mg/dL 70 - 99 mg/dL [employer] Phone: Interpretation and review of laboratory results Abnormal [employer] Phone: Potassium [Moles/Vol] 4.5 mmol/L 3.7 - 5.3 mmol/L [employer] Phone: Sodium [Moles/Vol] 135 mmol/L 135 - 144 mmol/L [facility] Phone: Urea nitrogen (BldV) [Mass/Vol] 12 mg/dL 8 - 23 mg/dL [employer] Phone: Urea nitrogen/Creatinine (Bld) [Mass ratio] 20 [facility] Phone: [employer] Phone: Keppraon 10-20-2020 KEPP 19 ug/mL Normal [facility] Comment on above: Result Comment: A [...] known. Performed By: #### K EPPRA #### [employer] [address] [place] [address] Admissions Gate Attendant: Kyle Cowan MD Laboratory - Chemistry and C hemistry - challengeOrdered By: Casandra Cerda on 10-20-2020 GFR/1.73 sq M.predicted MDRD (S/P/Bld) [Vol rate/Area] [employer] Phone: Comment on above: Average GFR for 70 o r more years old: 75 mL/min/1.73sq m Chronic Kidney Disease: <60 mL/min/1.73sq m Kidney failure: <15 mL/min/1.73sq m eGFR calculated using average adult body mass. Additional eGFR calculator available at: http://www.Zadspace/IndiaEver.com_crcl_2012.htm Stage 1: Some kidney damage normal GFR Stage 2: Mild kidney damage GFR 60-89 Stage 3: Moderate kidney damage GFR 30-59 Stage 4: Severe kidney damage GFR 15-29 Stage 5: Severe kidney damage GFR <15 ESRD - chronic treatment by dialysis or transplant Levetiracetam LevelOrdered B y: Casandra Cerda on 10-20-2020 Levetiracetam Lvl 19 ug/mL [employer] Work Phone: Comment on above: A reference [...] serum concentrations and toxicity is not known. [employer] Phone: Blood Gas, VenousOrdered By: Radu Worrell on 10-19-2020 Arthur Test NOT REPORTED [employer] Phone: Carboxyhemoglobin NOT REPORTED 0.0 - 5.0 % [facility] Work Phone: Comment on above: FIO2 NOT REPORTED [facility] Work Phone: HCO3 (Bld) [Moles/Vol] 28 mmol/L 24.0 - 30.0 mmol/L [facility] Work Phone: Interpretation and review of laboratory results Abnormal [facility] [employer] Work Phone: Methemoglobin NOT REPORTED 0.0 - 1.9 % [facility] Work Phone: Mode NOT REPORTED [facility] Work Phone: Negative Base Excess, Moncho NOT REPORTED 0.0 - 2.0 mmol/L [facility] [employer] Work Phone: NOTIFICATION NOT REPORTED [facility] Work Phone: NOTIFICATION TIME NOT REPORTED [facility] [employer] Work Phone: O2 Device/Flow/% NOT REPORTED [facility] [employer] Work Phone: Oxygen saturation in Blood 39.6 % Low 60.0 - 85.0 % [facility] [employer] Work Phone: Oxyhemoglobin NOT REPORTED 95.0 - 98.0 % [facility] [employer] Work Phone: pCO2, Moncho 52.9 [facility] [employer] Work Phone: pCO2, Moncho, Temp Adj NOT REPORTED [place] [facility] Work Phone: Peep/Cpap NOT REPORTED [facility] [employer] Work Phone: pH, Moncho 7.342 [facility] [employer] Work Phone: pH, Moncho, Temp Adj NOT REPORTED [facility] [employer] Work Phone: pO2, Moncho 24.4 Low [facility] [employer] Work Phone: pO2, Moncho, Temp Adj NOT REPORTED [facility] [employer] Work Phone: Positive Base Excess, Moncho 1.2 mmol/L 0.0 - 2.0 mmol/L [facility] Phone: PSV NOT REPORTED [employer] Work Phone: Pt Temp 37.0 [employer] Work Phone: Pt. Position NOT REPORTED [employer] Work Phone: Respiratory Rate NOT REPORTED [employer] Phone: Sample Site NOT REPORTED [employer] Work Phone: Set Rate NOT REPORTED [employer] Work Phone: Text for Respiratory DRAWN PER ED RN [employer] Phone: Total Hb NOT REPORTED 12.0 - 16.0 g/dl [employer] Phone: Total Rate NOT REPORTED [employer] Phone: [place] NOT REPORTED [employer] Phone: [employer] Work Phone: Brain Natri. Peptideon 10-19 BNP Interpretation Pro-BNP Reference Range: Normal [facility] Comment on above: Result Comment: Rule Out: <300 Horne Zone: Age <50 300-450 Age 50-75 300-900 Age >75 300-1800 Usually represents mild to moderate HF but other cardiopulmonary causes cannot be ruled out. Rule In: Age <50 >450 Age 50-75 >900 Age >75 >1800 Performed By: #### B C #### [facility] [address] [place] [address] Admissions Gate Attendant: Emerson Hall MD Natriuretic peptide B (Bld) [Mass/Vol] 158 pg/mL Normal <300 [facility] Comment on above: Result Comment: Pro- BNP results cannot be compared to BNP results. Performed By: #### B C #### [facility] [address] [place] [address] Admissions Gate Attendant: Emerson Hall MD Brain Natriuretic PeptideOrd ered By: Radu Worrell on 10-19-2020 BNP Interpretation Pro-BNP Reference Range: [facility] [employer] Phone: Comment on above: Rule Out: <300 Horne Zone: Age <50 300-450 Age 50-75 300-900 Age >75 300-1800 Usually represents mild to moderate HF but other cardiopulmonary causes cannot be ruled out. Rule In: Age <50 >450 Age 50-75 >900 Age >75 >1800 Natriuretic peptide B (Bld) [Mass/Vol] 158 pg/mL <300 [facility] Phone: Comment on above: Pro-BNP results liana ot be compared to BNP results. CBC with Diffon 10-19-2020 Abs.Imm.Granulocyte 0.00 k/uL Normal 0.00-0.30 [facility] Comment on above: Performed By: #### B C #### [facility] [address] [place] [address] [place] [place], [place] [id number] Admissions Gate Attendant: Emerson Hall MD Immature granulocytes/100 WBC (Bld) 0 % Normal 0 [facility] Comment on above: Performed By: #### B C #### [facility] [address] [place] [address] [place] [address] Admissions Gate Attendant: Emerson Hall MD Morphology Elliott (Bld) [Interp] Normal Normal [facility] Comment on above: Performed By: #### B C #### [address] [place] [id number] Admissions Gate Attendant: Emerson Hall MD Erythrocyte distribution width (RBC) [Ratio] 12.3 % Normal 11.8-14.4 [facility] Comment on above: Performed By: #### B C #### [facility] [address] [place] [id number] Admissions Gate Attendant: Emerson Hall MD Hematocrit (Bld) [Volume fraction] 36.4 % Normal 36.3-47.1 [facility] Comment on above: Performed By: #### B C #### [facility] [address] [place] [address] [address] [place] [id number] Admissions Gate Attendant: Emerson Hall MD Hemoglobin (Bld) [Mass/Vol] 12.1 g/dL Normal 11.9-15.1 [facility] Comment on above: Performed By: #### B C #### [address] [place], [place] [id number] Admissions Gate Attendant: Emerson Hall MD MCH (RBC) [Entitic mass] 31.0 pg Normal 25.2-33.5 [facility] Comment on above: Performed By: #### B C #### [address] [place], [place] [phone] Admissions Gate Attendant: Emerson Hall MD MCHC (RBC) [Mass/Vol] 33.2 g/dL Normal 28.4-34.8 [facility] Comment on above: Performed By: #### B C #### [address] [place], [place] [id number] Admissions Gate Attendant: Emerson Hall MD MCV (RBC) [Entitic vol] 93.3 fL Normal 82.6-102.9 [facility] Comment on above: Performed By: #### B C #### [address] [place], [place] [id number] Admissions Gate Attendant: Emerson Hall MD NRBC Automated 0.0 per 100 WBC Normal 0.0 [facility] Comment on above: Performed By: #### B C #### [address] [place], [place] [phone] Admissions Gate Attendant: Emerson Hall MD Platelet mean volume (Bld) [Entitic vol] 9.3 fL Normal 8.1-13.5 [facility] Comment on above: Performed By: #### B C #### [address] [place], [place] 1526883 Admissions Gate Attendant: Emerson Hall MD Platelets (Bld) [#/Vol] 281 10*3/uL Normal 138-453 [facility] Comment on above: Performed By: #### B C #### [facility] [address] [place], [place] 3298483 Admissions Gate Attendant: Emerson Hall MD RBC (Bld) [#/Vol] 3.90 10*6/uL Low 3.95-5.11 [facility] Comment on above: Performed By: #### B C #### [facility] [address] [place], [place] 5870483 Admissions Gate Attendant: Emerson Hall MD WBC (Bld) [#/Vol] 13.5 10*3/uL High 3.5-11.3 [facility] Comment on above: Performed By: #### B C #### [facility] [address] [place] [address] [place] [address] Admissions Gate Attendant: Emerson Hall MD Auto Diff Performed NOT REPORTED Normal [facility] Comment on above: Performed By: #### B C #### [facility] [address] [place] [address] [place] [address] Admissions Gate Attendant: Emerson Hall MD Platelet Estimate NOT REPORTED Normal [facility] Comment on above: Performed By: #### B C #### [facility] [address] [place] [address] [place] [address] Admissions Gate Attendant: Emerson Hall MD RBC morphology finding Nom (Bld) NOT REPORTED Normal [facility] Comment on above: Performed By: #### B C #### [facility] [address] [place], [place] [phone] Admissions Gate Attendant: Emerson Hall MD WBC Morphology NOT REPORTED Normal [facility] Comment on above: Performed By: #### B C #### [facility] [address] [place] [address] [place]. [place], [place] [phone] Admissions Gate Attendant: Emerson Hall MD CT HEAD WO CONTRASTon [...] Amina Lamas DO 10/19/20 Final result Normal [facility] CT Head WO ContrastOrdered B y: Izzy Doziercheson on 10-19-2020 No acute intracrania l abnormality. 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 Critical results were called by Dr. Amina Lamas to ANN Dyson on 10/19/2020 at 18:14. [facility] Work Phone: EXAMINATION: CT OF T HE [...] of the visualized skull or soft tissues. [employer] Work Phone: Romero, [facility] Incoming Radiant Results From [employer] - 10/19/2020 6:20 PM EDT EXAMINATION: CT [...] to ANN Dyson on 10/19/2020 at 18:14. [facility] Work Phone: [facility] Work Phone: Comp Metabolic Pr/rfx MGon 0 10-19-2020 (cont.) Normal [facility] Comment on above: Result Comment: Aver age GFR for 70 or more years old: 75 mL/min/1.73sq m Chronic Kidney Disease: <60 mL/min/1.73sq m Kidney failure: <15 mL/min/1.73sq m eGFR calculated using average adult body mass. Additional eGFR calculator available at: http://www.Zadspace/multiple_crcl_2012.htm Performed By: #### B C #### [facility] [address] [place] [address] [place] [address] Admissions Gate Attendant: Emerson Hall MD Albumin [Mass/Vol] 3.7 g/dL Normal 3.5-5.2 [facility] Comment on above: Performed By: #### B C #### [facility] [address] [place] [address] Admissions Gate Attendant: Emerson Hall MD Albumin/Glob Ratio 1.3 Normal 1.0-2.5 [facility] Comment on above: Performed By: #### B C #### [facility] [address] [place] [address] Admissions Gate Attendant: Emerson Hall MD Alkaline Phos 69 U/L Normal 35-104 [facility] Comment on above: Performed By: #### B C #### [facility] [address] [place] [address] Admissions Gate Attendant: Emerson Hall MD ALT [Catalytic activity/Vol] 8 U/L Normal 5-33 [facility] Comment on above: Performed By: #### B C #### [facility] [address] [place], [place] [phone] Admissions Gate Attendant: Emerson Hall MD Anion gap [Moles/Vol] 13 mmol/L Normal 9-17 [facility] Comment on above: Performed By: #### B C #### [facility] [address] [place], [place] 6455783 Admissions Gate Attendant: Emerson Hall MD AST [Catalytic activity/Vol] 16 U/L Normal <32 [facility] Comment on above: Performed By: #### B C #### [facility] [address] [place], [place] 2154783 Admissions Gate Attendant: Emerson Hall MD Bilirubin [Mass/Vol] 0.30 mg/dL Normal 0.3-1.2 [facility] Comment on above: Performed By: #### B C #### [facility] [address] [place], [place] 1740183 Admissions Gate Attendant: Emerson Hall MD BUN/CRE Ratio 18 Normal 9-20 [facility] Comment on above: Performed By: #### B C #### [facility] [address] [place], [place] 4851783 Admissions Gate Attendant: Emerson Hall MD Calcium [Mass/Vol] 9.1 mg/dL Normal 8.6-10.4 [facility] Comment on above: Performed By: #### B C #### [facility] [address] [place], [place] 3454283 Admissions Gate Attendant: Emerson Hall MD Chloride [Moles/Vol] 101 mmol/L Normal 98-107 [facility] Comment on above: Performed By: #### B C #### [facility] [address] [place], [place] 0663983 Admissions Gate Attendant: Emerson Hall MD CO2 [Moles/Vol] 23 mmol/L Normal 20-31 [facility] Comment on above: Performed By: #### B C #### [facility] [address] [place], [place] 6055983 Admissions Gate Attendant: Emerson Hall MD Creatinine [Mass/Vol] 0.91 mg/dL High 0.50-0.90 [facility] Comment on above: Performed By: #### B C #### [facility] [address] [place], [place] 1840683 Admissions Gate Attendant: Emerson Hall MD GFR, Amer >60 Normal >60 [facility] Comment on above: Performed By: #### B C #### [facility] [address] [place], [place] 7173083 Admissions Gate Attendant: Emerson Hall MD GFR,non Amer 59 mL/min Low >60 [facility] Comment on above: Performed By: #### B C #### [facility] [address] [place], [place] 3386083 Admissions Gate Attendant: Emerson Hall MD Glucose [Mass/Vol] 137 mg/dL High 70-99 [facility] Comment on above: Performed By: #### B C #### [facility] [address] [place] [address] Admissions Gate Attendant: Emerson Hall MD Potassium [Moles/Vol] 3.9 mmol/L Normal 3.7-5.3 [facility] Comment on above: Performed By: #### B C #### [facility] [address] [place], [place] [phone] Admissions Gate Attendant: Emerson Hall MD Protein [Mass/Vol] 6.6 g/dL Normal 6.4-8.3 [facility] Comment on above: Performed By: #### B C #### [facility] [address] [place] [address] Admissions Gate Attendant: Emerson Hall MD Sodium [Moles/Vol] 137 mmol/L Normal 135-144 [facility] Comment on above: Performed By: #### B C #### [facility] [address] [place] [address] Admissions Gate Attendant: Emerson Hall MD Staging: Normal [facility] Comment on above: Result Comment: Stag e 1: Some kidney damage normal GFR Stage 2: Mild kidney damage GFR 60-89 Stage 3: Moderate kidney damage GFR 30-59 Stage 4: Severe kidney damage GFR 15-29 Stage 5: Severe kidney damage GFR <15 ESRD - chronic treatment by dialysis or transplant Performed By: #### B C #### [facility] [address] [place] [address] Admissions Gate Attendant: Emerson Hall MD Urea nitrogen [Mass/Vol] 16 mg/dL Normal 8-23 [facility] Comment on above: Performed By: #### B C #### [facility] [address] [place] [address] Admissions Gate Attendant: Emerson Hall MD Comprehensive Metabolic Pane l w/ Reflex to MGOrdered By: Radu Worrell on 10-19-2020 Albumin [Mass/Vol] 3.7 g/dL 3.5 - 5.2 g/dL [facility] Phone: Albumin/Globulin [Mass ratio] 1.3 {ratio} [facility] [employer] Phone: ALP (Bld) [Catalytic activity/Vol] 69 U/L 35 - 104 U/L [facility] Phone: ALT [Catalytic activity/Vol] 8 U/L 5 - 33 U/L [facility] Phone: Anion gap [Moles/Vol] 13 mmol/L 9 - 17 mmol/L [employer] Phone: AST [Catalytic activity/Vol] 16 U/L <32 [employer] Phone: Bilirubin [Mass/Vol] 0.30 mg/dL 0.3 - 1 .2 mg/dL [employer] Phone: Calcium [Mass/Vol] 9.1 mg/dL 8.6 - 10. 4 mg/dL [employer] Phone: Chloride [Moles/Vol] 101 mmol/L 98 - 10 7 mmol/L [employer] Phone: CO2 [Moles/Vol] 23 mmol/L 20 - 31 mmol/L [employer] Phone: Creatinine [Mass/Vol] 0.91 mg/dL High 0.50 - 0.90 mg/dL [employer] Phone: Free PSA/Total PSA [Mass fraction] 6.6 g/dL 6.4 - 8.3 g/dL [employer] Phone: GFR >60 >60 mL/min [employer] Phone: GFR Non- 59 mL/min Low >60 [employer] Phone: Glucose [Mass/Vol] 137 mg/dL High 70 - 99 mg/dL [employer] Phone: Interpretation and review of laboratory results Abnormal [employer] Phone: Potassium [Moles/Vol] 3.9 mmol/L 3.7 - 5.3 mmol/L [employer] Phone: Sodium [Moles/Vol] 137 mmol/L 135 - 144 mmol/L [employer] Phone: Urea nitrogen (BldV) [Mass/Vol] 16 mg/dL 8 - 23 mg/dL [employer] Phone: Urea nitrogen/Creatinine (Bld) [Mass ratio] 18 [employer] Phone: EKG 12 LeadOrdered By: Katy Worrell on 10-19-2020 Atrial Rate 50 BPM [employer] Phone: P [place] 23 degrees [employer] Work Phone: P-R Interval 152 ms [employer] Phone: Q-T Interval 480 ms [employer] Phone: QRS Duration 90 ms [employer] Work Phone: QTc Calculation (Bazett) 437 ms [employer] Phone: R [place] 7 degrees [employer] Phone: T [place] 42 degrees [employer] Phone: Ventricular Rate 50 BPM [employer] Work Phone: Sinus bradycardia Possible Anterior infarct , age undetermined Abnormal ECG When compared with ECG of 03-AUG-2020 09:21, No significant change was found Confirmed by JOSE RAMOS ([id number]) on 10/19/2020 10:36:19 PM [employer] Phone: Romero, [facility] Incoming E kg Results From [employer] - 10/19/2020 10:36 PM EDT Sinus bradycardia Possible Anterior infarct , age undetermined Abnormal ECG When compared with ECG of 03-AUG-2020 09:21, No significant change was found Confirmed by JOSE RAMOS ([id number]) on 10/19/2020 10:36:19 PM [employer] Work Phone: [employer] Phone: Laboratory - Chemistry and C hemistry - challengeOrdered By: Radu Worrell on 10-19-2020 GFR/1.73 sq M.predicted MDRD (S/P/Bld) [Vol rate/Area] [employer] Phone: Comment on above: Average GFR for 70 o r more years old: 75 mL/min/1.73sq m Chronic Kidney Disease: <60 mL/min/1.73sq m Kidney failure: <15 mL/min/1.73sq m eGFR calculated using average adult body mass. Additional eGFR calculator available at: http://www.[employer]ermal Life.PayDivvy/multiple_crcl_2012.htm Stage 1: Some kidney damage normal GFR Stage 2: Mild kidney damage GFR 60-89 Stage 3: Moderate kidney damage GFR 30-59 Stage 4: Severe kidney damage GFR 15-29 Stage 5: Severe kidney damage GFR <15 ESRD - chronic treatment by dialysis or transplant Lactic Acidon 10-19-2020 Lactate [Moles/Vol] 1.1 mmol/L Normal 0.5-2.2 [facility] Comment on above: Performed By: #### B C #### [facility] [address] [place] [address] Admissions Gate Attendant: Emerson Hall MD Lactic AcidOrdered By: Katy Worrell on 10-19-2020 Lactate [Moles/Vol] 1.1 mmol/L 0.5 - 2. 2 mmol/L [facility] Work Phone: [facility] Work Phone: Lipaseon 10-19-2020 Lipase [Catalytic activity/Vol] 21 U/L Normal 13-60 [facility] Comment on above: Performed By: #### B C #### [facility] [address] [place] [address] Admissions Gate Attendant: Emerson Hall MD LipaseOrdered By: Radu howard on 10-19-2020 Lipase [Catalytic activity/Vol] 21 U/L 13 - 60 U/L [facility] [employer] Phone: Microscopic UrinalysisOrdere d By: Radu Worrell on 10-19-2020 - [facility] [employer] Phone: Amorphous, UA NOT REPORTED None [facility] Work Phone: Bacteria, UA TRACE Abnormal None [facility] Work Phone: Casts UA NOT REPORTED /LPF [facility] [employer] Work Phone: Crystals, UA NOT REPORTED None /HPF [facility] Work Phone: Epithelial Cells UA 0 TO 2 [facility] Work Phone: Interpretation and review of laboratory results Abnormal [facility] [employer] Work Phone: Mucus, UA 1+ Abnormal None [facility] [employer] Work Phone: Other Observations UA NOT REPORTED NOT REQ. [facility] [employer] Work Phone: RBC, UA 0 TO 2 [facility] [employer] Work Phone: Renal Epithelial, UA NOT REPORTED 0 /HPF [facility] [employer] Work Phone: Trichomonas, UA NOT REPORTED None [facility] Work Phone: WBC, UA 0 TO 2 [facility] [employer] Work Phone: Yeast, UA NOT REPORTED None [facility] [employer] Work Phone: [facility] [employer] Work Phone: No Panel InformationOrdered By: Radu Worrell on 10-19-2020 [facility] [employer] Work Phone: Troponinon 10-19-2020 Troponin, High Sens 10 ng/L Normal 0-14 [facility] Comment on above: Result Comment: High Sensitivity Troponin values cannot be compared with other Troponin methodologies. Patients with high levels of Biotin oral intake (i.e >5mg/day) may have falsely decreased Troponin levels. Samples collected within 8 hours of biotin intake may require additional information for diagnosis. Performed By: #### B C #### [facility] [address] [place] [address] Admissions Gate Attendant: Emerson Hall MD Troponin Interp. NOT REPORTED Normal [facility] Comment on above: Performed By: #### B C #### [facility] [address] [place] [address] Admissions Gate Attendant: Emerson Hall MD Troponin T NOT REPORTED Normal <0.03 [facility] Comment on above: Performed By: #### B C #### [facility] [address] [place] [address] Admissions Gate Attendant: Emerson Hall MD TroponinOrdered By: Radu Worrell on 10-19-2020 Troponin Interp NOT REPORTED [facility] [employer] Work Phone: Troponin T NOT REPORTED <0.03 ng/mL [facility] Work Phone: Troponin, High Sensitivity 10 ng/L 0 - 14 ng/L [facility] Work Phone: Comment on above: High Sensitivity Troponin values cannot be compared with other Troponin methodologies. Patients with high levels of Biotin oral intake (i.e >5mg/day) may have falsely decreased Troponin levels. Samples collected within 8 hours of biotin intake may require additional information for diagnosis. UA w/Reflex Cultureon 2020 Bilirubin, SemiQt,Ur SMALL Abnormal NEG [facility] Comment on above: Performed By: #### U DONNY REBOLLEDO #### [facility] [address] [place] [address] Admissions Gate Attendant: Emerson Hall MD Blood, Urine Negative Normal NEG [facility] Comment on above: Performed By: #### U DONNY REBOLLEDO #### [facility] [address] [place] [address] Admissions Gate Attendant: Emerson Hall MD Clarity (U) CLEAR Normal CLEAR [facility] Comment on above: Performed By: #### U DONNY REBOLLEDO #### [facility] [address] [place] [address] Admissions Gate Attendant: Emerson Hall MD Color (U) YELLOW Normal YEL [facility] Comment on above: Performed By: #### U DONNY REBOLLEDO #### [facility] [address] [place] [address] [place]. [place], [place] [id number] Admissions Gate Attendant: Emerson Hall MD Glucose Ql (U) Negative Normal NEG [facility] in Hospital Comment on above: Performed By: #### U AX, UMICAO #### [facility] [address] [place], [place] 1840083 Admissions Gate Attendant: Emerson Hall MD Ketones Ql (U) 2+ Abnormal NEG [facility] Comment on above: Performed By: #### U AX, UMICAO #### [facility] [address] [place] [address] Admissions Gate Attendant: Emerson Hall MD Leukocyte esterase Test strip Ql (U) Negative Normal NEG [facility] Comment on above: Performed By: #### U AX, UMICAO #### [facility] [address] [place] [address] Dr. [place], [place] [phone] Admissions Gate Attendant: Emerson Hall MD Nitrite,Ur Negative Normal [facility] Comment on above: Performed By: #### U AX, UMICAO #### [facility] [address] [place] [address] [place] [address] Admissions Gate Attendant: Emerson Hall MD PH,Ur 5.0 Normal 5.0-9.0 [facility] Comment on above: Performed By: #### U AX, UMICAO #### [facility] [address] [place] [address] [place]. [place], [place] [id number] Admissions Gate Attendant: Emerson Hall MD Protein Ql (U) TRACE Abnormal NEG [facility] in Hospital Comment on above: Performed By: #### U AX, UMICAO #### [facility] [address] [place] [address] [place]. [place], [place] [phone] Admissions Gate Attendant: Emerson Hall MD Spec. [place],Ur >1.030 High 1.010-1.[address] [facility] Comment on above: Performed By: #### U AX, UMICAO #### [facility] [address] [place] [address] [place] [address] Admissions Gate Attendant: Emerson Hall MD Urobilinogen,Ur Normal Normal NORM [facility] Comment on above: Performed By: #### U AX, UMICAO #### [facility] [address] [place] [address] Admissions Gate Attendant: Emerson Hall MD Comment NOT REPORTED Normal [facility] Comment on above: Performed By: #### U AX, UMICAO #### [facility] [address] [place] [address] Admissions Gate Attendant: Emerson Hall MD Urinalysis Reflex to Culture Ordered By: Radu Worrell on 10-19-2020 Bilirubin Urine SMALL Abnormal NEGATIVE [facility] Work Phone: Color, UA YELLOW YELLOW [facility] [employer] Work Phone: Glucose, Ur Negative NEGATIVE [facility] Work Phone: Interpretation and review of laboratory results Abnormal [facility] Work Phone: Ketones Ql (U) 2+ Abnormal NEGATIVE [facility] Work Phone: Leukocyte esterase Test strip Ql (U) Negative NEGATIVE [facility] Phone: Nitrite, Urine Negative NEGATIVE [facility] Work Phone: pH, UA 5.0 [facility] [employer] Work Phone: Protein, UA TRACE Abnormal NEGATIVE [facility] Work Phone: Specific [place], UA >1.030 High [facility] [employer] Work Phone: Turbidity UA CLEAR CLEAR [facility] [employer] Work Phone: Urinalysis Comments NOT REPORTED [facility] [employer] Work Phone: Urine Hgb Negative NEGATIVE [facility] Work Phone: Urobilinogen, Urine Normal Normal [facility] Work Phone: [facility] Work Phone: Urinalysis,Microon 1 ----- Normal [facility] Comment on above: Performed By: #### U AX, UMICAO #### [facility] [address] [place], [place] [id number] Admissions Gate Attendant: Emerson Hall MD Bacteria TRACE Abnormal [facility] Comment on above: Performed By: #### U AX, UMICAO #### [facility] [address] [place] [address] Admissions Gate Attendant: Emerson Hall MD Epithelial cells LM Ql (Urine sed) 0 TO 2 Normal 0-25 [facility] Comment on above: Performed By: #### U AX, UMICAO #### [facility] [address] [place], [place] [id number] Admissions Gate Attendant: Emerson Hall MD Mucus Strands 1+ Abnormal [facility] Comment on above: Performed By: #### U AX, UMICAO #### [facility] [address] [place] [address] Admissions Gate Attendant: Emerson Hall MD Urine RBC's 0 TO 2 Normal 0-2 [facility] Comment on above: Performed By: #### U AX, UMICAO #### [facility] [address] [place] [address] Admissions Gate Attendant: Emerson Hall MD Urine WBC's 0 TO 2 Normal 0-5 [facility] Comment on above: Performed By: #### U AX, UMICAO #### [facility] [address] [place], [place] [id number] Admissions Gate Attendant: Emerson Hall MD Amorphous sediment LM Ql (Urine sed) NOT REPORTED Normal [facility] Comment on above: Performed By: #### U AX, UMICAO #### [facility] [address] [place] [address] Admissions Gate Attendant: Emerson Hall MD Casts NOT REPORTED Normal [facility] Comment on above: Performed By: #### U AX, UMICAO #### [facility] [address] [place] [address] Admissions Gate Attendant: Emerson Hall MD Crystals LM Nom (Urine sed) NOT REPORTED Normal [facility] Comment on above: Performed By: #### U AX, UMICAO #### [facility] [address] [place] [address] Admissions Gate Attendant: Emerson Hall MD Epithelial, Renal NOT REPORTED Normal 0 [facility] Comment on above: Performed By: #### U AX, UMICAO #### [facility] [address] [place] [address] Admissions Gate Attendant: Emerson Hall MD Other Observations NOT REPORTED Normal [facility] Comment on above: Performed By: #### U AX, UMICAO #### [facility] [address] [place] [address] Admissions Gate Attendant: Emerson Hall MD Trichomonas NOT REPORTED Normal [facility] Comment on above: Performed By: #### U AX, UMICAO #### [facility] [address] [place] [address] Admissions Gate Attendant: Emerson Hall MD Yeast NOT REPORTED Normal NONE [facility] Comment on above: Performed By: #### U AX, UMICAO #### [facility] [address] [place] [address] Admissions Gate Attendant: Emerson Hall MD Venous Blood Gaseson 021 Body Temp. 37.0 Normal [facility] Comment on above: Performed By: #### U AX, UMICAO #### [facility] [address] [place], [place] [id number] Admissions Gate Attendant: Emerson Hall MD HCO3 (Bld) [Moles/Vol] 28.0 mmol/L Normal 24.0-30.0 [facility] Comment on above: Performed By: #### U AXDINESHICAO #### [facility] [address] [place] [address] Admissions Gate Attendant: Emerson Hall MD Oxygen (Bld) [Partial pressure] 24.4 mm[Hg] Low 30.0-50.0 [facility] Comment on above: Performed By: #### U AXDINESHICAO #### [facility] [address] [place] [address] Admissions Gate Attendant: Emerson Hall MD Oxygen saturation in Blood 39.6 % Low 60.0-85.0 [facility] Comment on above: Performed By: #### U JANELL REBOLLEDOO #### [facility] [address] [place] [address] [place] [place], [place] [id number] Admissions Gate Attendant: Emerson Hall MD pCO2 52.9 Normal 39-55 [facility] Comment on above: Performed By: #### U AXJANELLO #### [facility] [address] [place] [address] [place]. [place], [place] [id number] Admissions Gate Attendant: Emerson Hall MD pH (Bld) 7.342 [pH] Normal 7.32-7.42 [facility] Comment on above: Performed By: #### U AXDINESHICAO #### [facility] [address] [place], [place] [id number] Admissions Gate Attendant: Emerson Hall MD Positive Base Excess 1.2 mmol/L Normal 0.0-2.0 [facility] Comment on above: Performed By: #### U AX UMICAO #### [facility] [address] [place], [place] [address]83 Admissions Gate Attendant: Emerson Hall MD Text for Respiratory DRAWN PER ED RN Normal [facility] Comment on above: Performed By: #### U AX, UMICAO #### [facility] [address] [place], [place] 4752683 Admissions Gate Attendant: Emerson Hall MD Arthur Test NOT REPORTED Normal [facility] Comment on above: Performed By: #### U AX, UMICAO #### [facility] [address] [place], [place] [id number] Admissions Gate Attendant: Emerson Hall MD Carboxy Hgb NOT REPORTED Normal 0.0-5.0 [facility] Comment on above: Performed By: #### U AX, UMICAO #### [facility] [address] [place], [place] 8368183 Admissions Gate Attendant: Emerson Hall MD FIO2 NOT REPORTED Normal [facility] Comment on above: Performed By: #### U AX, UMICAO #### [facility] [address] [place] [address] Admissions Gate Attendant: Emerson Hall MD Methemoglobin NOT REPORTED Normal 0.0-1.9 [facility] Comment on above: Performed By: #### U AX, UMICAO #### [facility] [address] [place], [place] 7583183 Admissions Gate Attendant: Emerson Hall MD Mode NOT REPORTED Normal [facility] Comment on above: Performed By: #### U AX, UMICAO #### [facility] [address] [place], [place] 4555783 Admissions Gate Attendant: Emerson Hall MD Negative Base Excess NOT REPORTED Normal 0.0-2.0 [facility] Comment on above: Performed By: #### U AX, UMICAO #### [facility] [address] [place], [place] 2613083 Admissions Gate Attendant: Emerson Hall MD Notification Time NOT REPORTED Normal [facility] Comment on above: Performed By: #### U AX, UMICAO #### [facility] [address] [place], [place] 3975483 Admissions Gate Attendant: Emerson Hall MD Notification: NOT REPORTED Normal [facility] Comment on above: Performed By: #### U AX, UMICAO #### [facility] [address] [place], [place] [address]83 Admissions Gate Attendant: Emerson Hall MD O2 Device/Flow/% NOT REPORTED Normal [facility] Comment on above: Performed By: #### U AX, UMICAO #### [facility] [address] [place], [place] 7057183 Admissions Gate Attendant: Emerson Hall MD Oxyhemoglobin NOT REPORTED Normal 95.0-98.0 [facility] Comment on above: Performed By: #### U AX, UMICAO #### [facility] [address] [place] [address] Admissions Gate Attendant: Emerson Hall MD Pco2 Adj'd for Temp. NOT REPORTED Normal 39.0-55.0 [facility] Comment on above: Performed By: #### U AX, UMICAO #### [facility] [address] [place] [address] Admissions Gate Attendant: Emerson Hall MD PEEP/CPAP NOT REPORTED Normal [facility] Comment on above: Performed By: #### U AX, UMICAO #### [facility] [address] [place] [address] Admissions Gate Attendant: Emerson Hall MD pH Adjst'd for Temp. NOT REPORTED Normal 7.320-7.420 [facility] Comment on above: Performed By: #### U AX, UMICAO #### [facility] [address] [place] [address] Admissions Gate Attendant: Emerson Hall MD pO2 Adj'd for Temp. NOT REPORTED Normal 30.0-50.0 [facility] Comment on above: Performed By: #### U AX, UMICAO #### [facility] [address] [place] [address] Admissions Gate Attendant: Emerson Hall MD PSV NOT REPORTED Normal [facility] Comment on above: Performed By: #### U AX, UMICAO #### [facility] [address] [place], [facility] Admissions Gate Attendant: Emerson Hall MD Pt. Position NOT REPORTED Normal [facility] Comment on above: Performed By: #### U AX, UMICAO #### [facility] [address] [place] [address] Admissions Gate Attendant: Emerson Hall MD Respiratory Rate NOT REPORTED Normal [facility] Comment on above: Performed By: #### U AX, UMICAO #### [facility] [address] [place], [facility] Admissions Gate Attendant: Emerson Hall MD Set Rate NOT REPORTED Normal [facility] Comment on above: Performed By: #### U AX, UMICAO #### [facility] [address] [place] [address] Dr. [place], [facility] Admissions Gate Attendant: Emerson Hall MD Site Drawn NOT REPORTED Normal [facility] Comment on above: Performed By: #### U AX, UMICAO #### [facility] [address] [place], [facility] Admissions Gate Attendant: Emerson Hall MD Total Hb NOT REPORTED Normal 12.0-16.0 [facility] Comment on above: Performed By: #### U AX, UMICAO #### [facility] [address] [place] [address] Admissions Gate Attendant: Emerson Hall MD Total Rate NOT REPORTED Normal [facility] Comment on above: Performed By: #### U AX, UMICAO #### [facility] [address] [place] [address] Admissions Gate Attendant: Emerson Hall MD [place] NOT REPORTED Normal [facility] Comment on above: Performed By: #### U AXDONNY #### [facility] [address] [place] [address] Admissions Gate Attendant: Emerson Hall MD XR CHEST PORTABLEon 10-20-19 [...] Milton Zheng MD 10/19/20 Final result Normal [facility] XR CHEST PORTABLEOrdered By: Radu Worrell on 10-19-2020 No acute cardiopulmonary disease [employer] Phone: EXAMINATION: ONE XRA Y VIEW OF [...] bony abnormalities. The hilar structures are normal. [facility] Phone: Romero, pn Incoming Radiant Results From [employer] - 10/19/2020 7:02 PM EDT EXAMINATION: ONE [...] are normal. IMPRESSION: No acute cardiopulmonary disease [facility] Phone: [employer] Phone: ANION GAPon 08-05-2020 Anion gap [Moles/Vol] 8.0 mmol/L Normal 8.0-16.0 [facility] Comment on above: Result Comment: ANIO N GAP = Sodium -(Chloride + CO2) Performed By: #### C BCWD, BMP, MG, ANION, EGFR1 #### [facility] [address] [place] [address] Anion GapOrdered By: Jack Mensah on 08-05-2020 Anion gap [Moles/Vol] 8.0 mmol/L 8.0 - 16.0 meq/L [employer] Phone: Comment on above: ANION GAP = Sodium - (Chloride + CO2) Performed at [facility] [address] [place] [address] BASIC METABOL PANELon 2020 Calcium [Mass/Vol] 9.3 mg/dL Normal 8.5-10.5 [facility] Comment on above: Performed By: #### C BCWD, BMP, MG, ANION, EGFR1 #### [facility] [address] [place] [address] Chloride [Moles/Vol] 107 mmol/L Normal 98-111 [facility] Comment on above: Performed By: #### C BCWD, BMP, MG, ANION, EGFR1 #### [facility] [address] [place] [address] CO2 [Moles/Vol] 23 mmol/L Normal 23-33 [facility] Comment on above: Performed By: #### C BCWD, BMP, MG, ANION, EGFR1 #### [facility] [address] [place] [address] Creatinine [Mass/Vol] 0.6 mg/dL Normal 0.4-1.2 [facility] Comment on above: Performed By: #### C BCWD, BMP, MG, ANION, EGFR1 #### [facility] [address] [place] [address] Glucose [Mass/Vol] 101 mg/dL Normal 70-108 [facility] Comment on above: Performed By: #### C BCWD, BMP, MG, ANION, EGFR1 #### [facility] [address] [place] [address] Potassium [Moles/Vol] 3.8 mmol/L Normal 3.5-5.2 [facility] Comment on above: Performed By: #### C BCWD, BMP, MG, ANION, EGFR1 #### [facility] [address] [place] [address] Sodium [Moles/Vol] 138 mmol/L Normal 135-145 [facility] Comment on above: Performed By: #### C BCWD, BMP, MG, ANION, EGFR1 #### [facility] [address] [address] Urea nitrogen [Mass/Vol] 12 mg/dL Normal 7-22 [facility] Comment on above: Performed By: #### C BCWD, BMP, MG, ANION, EGFR1 #### [facility] [address] [place] [address] Basic Metabolic PanelOrdered By: Jack Mensah on 08-05-2020 Calcium [Mass/Vol] 9.3 mg/dL 8.5 - 10. 5 mg/dL [employer] Phone: Comment on above: Performed at [facility] [address] [place] [address] Chloride [Moles/Vol] 107 mmol/L 98 - 11 1 meq/L [employer] Phone: CO2 [Moles/Vol] 23 mmol/L 23 - 33 meq/L [employer] Work Phone: Creatinine [Mass/Vol] 0.6 mg/dL 0.4 - 1.2 mg/dL [employer] Phone: Glucose [Mass/Vol] 101 mg/dL 70 - 108 mg/dL [employer] Phone: Potassium [Moles/Vol] 3.8 mmol/L 3.5 - 5.2 meq/L [employer] Phone: Sodium [Moles/Vol] 138 mmol/L 135 - 145 meq/L [employer] Phone: Urea nitrogen (BldV) [Mass/Vol] 12 mg/dL 7 - 22 mg/dL [employer] Phone: CBC Auto DifferentialOrdered By: Jack Mensah on 08-05-2020 Basophils (Bld) [#/Vol] 0.1 10*3/uL [employer] Phone: Basophils/100 WBC (Bld) 1.4 % [employer] Phone: Eosinophils Absolute 0.3 [employer] Phone: Eosinophils/100 WBC (Bld) 3.3 % [employer] Phone: Erythrocyte distribution width (RBC) [Ratio] 13.2 % 11.5 - 14.5 % [employer] Phone: Erythrocyte distribution width (RBC) [Ratio] 47.8 fL High 35.0 - 45.0 fL [employer] Phone: Hematocrit (Bld) [Volume fraction] 42.3 % 37.0 - 47.0 % [employer] Phone: Hemoglobin.gastrointes tinal spec 1 Ql (Stl) 13.1 [employer] [facility] Work Phone: Immature Grans (Abs) 0.04 [employer] Phone: Immature granulocytes/100 WBC (Bld) 0.5 % [employer] Work Phone: Interpretation and review of laboratory results Abnormal [employer] Work Phone: Lymphocytes Absolute 2.3 [employer] Work Phone: Lymphocytes/100 WBC (Bld) 29.4 % [employer] Phone: MCH (RBC) [Entitic mass] 30.5 pg 26.0 - 33.0 pg [facility] Phone: MCHC (RBC) [Mass/Vol] 31.0 g/dL Low [facility] [employer] Work Phone: MCV (RBC) [Entitic vol] 98.6 fL 81.0 - 99.0 fL [facility] Phone: Monocytes Absolute 0.7 [facility] Phone: Monocytes/100 WBC (Bld) 9.4 % [facility] Work Phone: nRBC 0 /100 wbc [facility] Work Phone: Comment on above: Performed at [facility] [address] [place] [address] Platelet mean volume (Bld) [Entitic vol] 8.9 fL Low 9.4 - 12.4 fL [facility] Phone: Platelets (Bld) [#/Vol] 242 10*3/uL [employer] Work Phone: RBC (Bld) [#/Vol] 4.29 10*6/uL [employer] Work Phone: Segmented neutrophils/100 WBC (Bld) 56 % [employer] Phone: Segs Absolute 4.3 [employer] Work Phone: WBC (Bld) [#/Vol] 7.7 10*3/uL [employer] Phone: CBC WITH DIFFERENTIALon 07-10 ABS BASOPHILS 0.1 thou/mm3 Normal 0.0-0.1 [facility] Comment on above: Performed By: #### C BCWD, BMP, MG, ANION, EGFR1 #### [address] [address] ABS EOSINOPHILS 0.3 thou/mm3 Normal 0.0-0.4 [facility] Comment on above: Performed By: #### C BCWD, BMP, MG, ANION, EGFR1 #### [address] [address] ABS IMMATURE GRANS (IG) 0.04 thou/mm3 Normal 0.00-0.07 [facility] Comment on above: Performed By: #### C BCWD, BMP, MG, ANION, EGFR1 #### [address] [address] ABS LYMPHOCYTES 2.3 thou/mm3 Normal 1.0-4.8 [facility] Comment on above: Performed By: #### C BCWD, BMP, MG, ANION, EGFR1 #### [address] [address] ABS MONOCYTES 0.7 thou/mm3 Normal 0.4-1.3 [facility] Comment on above: Performed By: #### C BCWD, BMP, MG, ANION, EGFR1 #### [address] [address] ABS NEUTROPHILS 4.3 thou/mm3 Normal 1.8-7.7 [facility] Comment on above: Performed By: #### C BCWD, BMP, MG, ANION, EGFR1 #### [address] [address] Basophils/100 WBC (Bld) 1.4 % Normal [facility] Comment on above: Performed By: #### C BCWD, BMP, MG, ANION, EGFR1 #### [address] [address] Eosinophils/100 WBC (Bld) 3.3 % Normal [facility] Comment on above: Performed By: #### C BCWD, BMP, MG, ANION, EGFR1 #### [address] [address] Erythrocyte distribution width (RBC) [Ratio] 13.2 % Normal 11.5-14.5 [facility] Comment on above: Performed By: #### C BCWD, BMP, MG, ANION, EGFR1 #### [address] [address] Hematocrit (Bld) [Volume fraction] 42.3 % Normal 37.0-47.0 [facility] Comment on above: Performed By: #### C BCWD, BMP, MG, ANION, EGFR1 #### [facility] [address] [place] [address] Hemoglobin (Bld) [Mass/Vol] 13.1 g/dL Normal 12.0-16.0 [facility] Comment on above: Performed By: #### C BCWD, BMP, MG, ANION, EGFR1 #### [address] [address] IMMATURE GRANS (IG) 0.5 % Normal [facility] Comment on above: Performed By: #### C BCWD, BMP, MG, ANION, EGFR1 #### [address] [address] Lymphocytes/100 WBC (Bld) 29.4 % Normal [facility] Comment on above: Performed By: #### C BCWD, BMP, MG, ANION, EGFR1 #### [address] [address] MCH (RBC) [Entitic mass] 30.5 pg Normal 26.0-33.0 [facility] Comment on above: Performed By: #### C BCWD, BMP, MG, ANION, EGFR1 #### [address] [address] MCHC (RBC) [Mass/Vol] 31.0 g/dL Low 32.2-35.5 [facility] Comment on above: Performed By: #### C BCWD, BMP, MG, ANION, EGFR1 #### [facility] [address] [place] [address] MCV (RBC) [Entitic vol] 98.6 fL Normal 81.0-99.0 [facility] Comment on above: Performed By: #### C BCWD, BMP, MG, ANION, EGFR1 #### [facility] [address] [place] [address] Monocytes/100 WBC (Bld) 9.4 % Normal [facility] Comment on above: Performed By: #### C BCWD, BMP, MG, ANION, EGFR1 #### [facility] [address] [place] [address] Neutrophils/100 WBC (Bld) 56.0 % Normal [facility] Comment on above: Performed By: #### C BCWD, BMP, MG, ANION, EGFR1 #### [facility] [address] [place] [address] NRBC 0 /100 wbc Normal [facility] Comment on above: Performed By: #### C BCWD, BMP, MG, ANION, EGFR1 #### [facility] [address] [place] [address] PLATELET 242 thou/mm3 Normal 130-400 [facility] Comment on above: Performed By: #### C BCWD, BMP, MG, ANION, EGFR1 #### [facility] [address] [place] [address] Platelet mean volume (Bld) [Entitic vol] 8.9 fL Low 9.4-12.4 [facility] Comment on above: Performed By: #### C BCWD, BMP, MG, ANION, EGFR1 #### [facility] [address] [place] [address] RBC 4.29 mill/mm3 Normal 4.20-5.40 [facility] Comment on above: Performed By: #### C BCWD, BMP, MG, ANION, EGFR1 #### [facility] [address] [place] [address] RDW-SD 47.8 fL High 35.0-45.0 [facility] Comment on above: Performed By: #### C BCWD, BMP, MG, ANION, EGFR1 #### [facility] [address] [place] [address] WBC 7.7 thou/mm3 Normal 4.8-10.8 [facility] Comment on above: Performed By: #### C BCWD, BMP, MG, ANION, EGFR1 #### [facility] [address] [place] [address] Culture, Reflexed, UrineOrde red By: Darien Ferrara on 08-05-2020 Interpretation and review of laboratory results Abnormal [facility] Phone: Organism Mixed Growth Abnormal [facility] Phone: Urine Culture Reflex Mixed growth. The mixture of organisms present represents both organisms that may cause urinary tract infections and organisms that are not a common cause of urinary tract infections and are possibly skin hermilo or distal urethral hermilo. Abnormal [facility] Phone: Source: urine, clean catch Site: Current Antibiotics: not stated [facility] Phone: GFR, ESTIMATEDon 08-05-2020 GFR/1.73 sq M.predicted MDRD (S/P/Bld) [Vol rate/Area] mL/min/{1.73_m2} Normal [facility] Comment on above: Result Comment: Stag e [...] C BCWD, BMP, MG, ANION, EGFR1 #### [facility] [address] [place] [address] GLUCOSE POCon 08-05-2020 Glucose [Mass/Vol] 88 mg/dL Normal 70-108 [facility] Comment on above: Performed By: #### P OCGL #### [facility] [address] [place] [address] Glomerular Filtration Rate, EstimatedOrdered By: Jack Mensah on 08-05-2020 GFR/1.73 sq M.predicted MDRD (S/P/Bld) [Vol rate/Area] mL/min/{1.73_m2} ml/min/1.73m 2 [facility] Phone: Comment on above: Stage Description GF [...] Vol. 139 (2) pg 137-147. Performed at [facility] [address] [place] [address] MAGNESIUMon 08-05-2020 Magnesium [Mass/Vol] 2.0 mg/dL Normal 1.6-2.4 [facility] Comment on above: Performed By: #### C BCWD, BMP, MG, ANION, EGFR1 #### [facility] [address] [place] [address] MagnesiumOrdered By: Jack Mensah on 08-05-2020 Magnesium [Mass/Vol] 2.0 mg/dL 1.6 - 2 .4 mg/dL [facility] Phone: Comment on above: Performed at [facility] [address] [place] [address] POCT GlucoseOrdered By: Lexie Garcia on 08-05-2020 Glucose [Mass/Vol] 88 mg/dL 70 - 108 mg/dl [facility] Phone: Comment on above: Performed at [facility] [address] [place] [address] MRI BRAIN W WO CONTRASTOrder ed By: [...] Dr. Gracie Kruse on 08/04/2020 1:28 PM [facility] Phone: Romero, Wcoh Incoming Radiant Results From [employer] - 08/04/2020 1:30 PM EDT PROCEDURE: MRI [...] Dr. Gracie Kruse on 08/04/2020 1:28 PM [facility] Phone: REFLEX CULT URon 08-04-2020 REFLEX CULT UR MICROBIOLOGY REPORT [facility], [address] [place] [address], [address] PATIENT: LILLIANA PATEL [facility]: [facility] [facility] -A : 1940 AGE: 79 SEX: F ADM: 08/04/20 Att. Physician: DARLYN GARCIA Order Id: [id number] Req. Physician: DARIEN FERRARA Source: urine, clean [...] Organism 00 Mixed Growth Normal [facility] Comment on above: Performed By: #### U RCS2 #### [facility] [address] [place] [address] T4 (FREE)on 08-04-2020 T4 (FREE) 1.00 ng/dL Normal 0.93-1.76 [facility] Comment on above: Performed By: #### C BCWD, BMP, MG, ANION, EGFR1 #### [facility] [address] [place] [address] T4, FreeOrdered By: Shirley Ferrara on 08-04-2020 Free T4 [Mass/Vol] 1 ng/dL 0.93 - 1. 76 ng/dL [employer] Work Phone: Comment on above: Performed at [facility] [address] [place] [address] TSH W/ REFLEX FT4on 08-05-19 21 TSH THIRD GENERATION 5.250 uIU/mL High 0.400-4.200 S [facility] Comment on above: Performed By: #### T SHRF, VB12F, FT4 #### [facility] [address] [place] [address] TSH with ReflexOrdered By: Jessica Ferrara on 08-04-2020 Interpretation and review of laboratory results Abnormal [employer] Work Phone: TSH Qn 5.250 m[IU]/L High [facility] Work Phone: Comment on above: Performed at [facility] [address] [place] [address] UA WITH MICROSCOPICon 2020 BACTERIA FEW Normal FEW/NONE SEEN [facility] Comment on above: Performed By: #### U RCS2 #### [facility] [address] [place] [address] CASTS NONE SEEN Normal NONE SEEN [facility] Comment on above: Performed By: #### U RCS2 #### [facility] [address] [place] [address] CASTS 2 NONE SEEN Normal NONE SEEN [facility] Comment on above: Performed By: #### U RCS2 #### [facility] [address] [place] [address] Crystals LM Nom (Urine sed) NONE SEEN Normal NONE SEEN [facility] Comment on above: Performed By: #### U RCS2 #### [facility] [address] [place] [address] EPITHELIAL 3 /hpf Normal 3-5/hpf [facility] Comment on above: Performed By: #### U RCS2 #### [facility] [address] [place] [address] MISCELLANEOUS 2 NONE SEEN Normal [facility] Comment on above: Performed By: #### U RCS2 #### [facility] [address] [place] [address] RBC 0 /hpf Normal 0-2/hpf [facility] Comment on above: Performed By: #### U RCS2 #### [facility] [address] [place] [address] RENAL EPITHELIAL NONE SEEN Normal NONE SEEN [facility] Comment on above: Performed By: #### U RCS2 #### [facility] [address] [place] [address] WBC 25 /hpf Normal 0-4/hpf [facility] Comment on above: Performed By: #### U RCS2 #### [facility] [address] [place] [address] [place] [address] YEAST NONE SEEN Normal NONE SEEN [facility] Comment on above: Performed By: #### U RCS2 #### [facility] [address] [place] [address] Bilirubin Ql (U) Negative Normal NEGATIVE [facility] Comment on above: Performed By: #### U RCS2 #### [facility] [address] [facility] [address] CHARACTER CLEAR Normal CLEAR-SL CLOUD [facility] Comment on above: Performed By: #### U RCS2 #### [facility] [address] [facility] [address] Color (U) YELLOW Normal STRAW-YELLOW [facility] Comment on above: Performed By: #### U RCS2 #### [facility] [address] [place] [address] Glucose Ql (U) Negative Normal NEGATIVE [facility] Comment on above: Performed By: #### U RCS2 #### [facility] [address] [place] [address], [place] [address] Hemoglobin Ql (U) TRACE Abnormal NEGATIVE [facility] Comment on above: Performed By: #### U RCS2 #### [facility] [address] [place] [address], [place] [address] Ketones Ql (U) Negative Normal NEGATIVE [facility] Comment on above: Performed By: #### U RCS2 #### [facility] [address] [place] [address], [place] [address] LEUKOCYTES LARGE Abnormal NEGATIVE [facility] Comment on above: Performed By: #### U RCS2 #### [facility] [address] [place] [address], [place] [address] Nitrite Ql (U) Negative Normal NEGATIVE [facility] Comment on above: Performed By: #### U RCS2 #### [facility] [address] [place] [address], [place] [address] pH (U) 7.0 [pH] Normal 5.0 - 9.0 [facility] Comment on above: Performed By: #### U RCS2 #### [facility] [address] [place] [address], [place] [address] Protein Ql (U) Negative Normal NEGATIVE [facility] Comment on above: Performed By: #### U RCS2 #### [facility] [address] [facility] [place] [address] Specific gravity (U) [Rel density] 1.012 Normal 1.002-1.030 [facility] Comment on above: Performed By: #### U RCS2 #### [facility] [address] [place] [address] Urobilinogen Qn (U) 0.2 {Kannan'U}/dL Normal 0.0 - 1. 0 [facility] Comment on above: Performed By: #### U RCS2 #### [facility] [address] [place] [address] Urine with Reflexed MicroOrd ered By: Darien Ferrara on 08-04-2020 Bacteria, UA FEW FEW/NONE SEEN /hpf [facility] Work Phone: Bilirubin Urine Negative NEGATIVE [facility] Work Phone: Blood, Urine TRACE Abnormal NEGATIVE [facility] Work Phone: CASTS 2 NONE SEEN NONE SEEN /lpf [employer] Work Phone: Casts UA NONE SEEN NONE SEEN /lpf [facility] Work Phone: Character, Urine CLEAR CLEAR-SL CLOUD [facility] Work Phone: Color, UA YELLOW STRAW-YELLOW [facility] Work Phone: Crystals, UA NONE SEEN NONE SEEN [facility] Work Phone: Epithelial Cells, UA 3-5 3-5/hpf /hpf [facility] Work Phone: Glucose, Ur Negative NEGATIVE mg/dl [facility] [employer] Work Phone: Interpretation and review of laboratory results Abnormal [facility] Work Phone: Ketones Ql (U) Negative NEGATIVE [employer] Work Phone: Leukocyte esterase Test strip Ql (U) LARGE Abnormal NEGATIVE [facility] Work Phone: MISCELLANEOUS 2 NONE SEEN [employer] [facility] Work Phone: Comment on above: Performed at [facility] [address] [place] [address] Nitrite, Urine Negative NEGATIVE [facility] Work Phone: pH, UA 7.0 [facility] Phone: Protein, UA Negative NEGATIVE [facility] Phone: RBC, UA 0-2 0-2/hpf /hpf [facility] Phone: Renal Epithelial, UA NONE SEEN NONE SEEN [employer] Phone: Specific [place], Urine 1.012 [facility] Phone: Urobilinogen, Urine 0.2 [facility] Phone: WBC, UA 25-50 0-4/hpf /hpf [facility] Phone: Yeast, UA NONE SEEN NONE SEEN [facility] Phone: VITAMIN B12 FOLATEon 021 Cobalamin (Vitamin B12) [Mass/Vol] 1839 pg/mL High 211-911 [facility] Comment on above: Performed By: #### C BCWD, BMP, MG, ANION, EGFR1 #### [facility] [address] [place] [address] FOLATE 14.6 ng/mL Normal 4.8-24.2 [facility] Comment on above: Performed By: #### C BCWD, BMP, MG, ANION, EGFR1 #### [facility] [address] [place] [address] Vitamin B12 & folateOrdered By: Darien Ferrara on 08-04-2020 Cobalamin (Vitamin B12) [Mass/Vol] 1839 pg/mL High 211 - 911 pg/mL [facility] Phone: Folate 14.6 ng/mL 4.8 - 24.2 ng/mL [facility] Phone: Comment on above: Performed at [facility] [address] [place] [address] Interpretation and review of laboratory results Abnormal [facility] Phone: VL DUP UPPER EXTREMITY VENOU S RIGHTon 05-13-2020 [facility] [facility] l Vascular Upper Extremities Veins Procedure Patient Name DANA Date of Study 05/13/2020 LILLIANA Salmeron Date of 1940 Gender Female Age 79 year(s) Race Room Number Corporate ID [id number] # Patient Acct [id number] # MR # [id number] Collections Manager CELSA Mensah T Interpreting Physician Reymundo Barbosa MD Referring [...] !Phasic ! ! + ---+ ----+ ------+ [facility] [place], [place] Romero, Sveta Incoming Cardio Results From [facility]/ - 05/13/2020 12:29 PM [facility] Vascular Upper Extremities Veins Procedure Patient Name DANA Date of Study 05/13/2020 LILLIANA Jaron Date of 1940 Gender Female Age 79 year(s) Race Room Number Corporate ID [id number] # Patient Acct [id number] # MR # [id number] Collections Manager Rodrick, RVT Karen Son RVT Interpreting Physician Reymundo Barbosa MD Referring Referring [...] ! ! + ---+ ----+ ------ + [place] CBC Auto Differentialon 02-08 Basophils (Bld) [#/Vol] 0.10 10*3/uL [place] Basophils/100 WBC (Bld) 1 % 0 - 2 % [place] Differential Type NOT REPORTED [place] Eosinophils (Bld) [#/Vol] 0.25 10*3/uL [facility], [place] Eosinophils/100 WBC (Bld) 3 % 1 - 4 % [place] Erythrocyte distribution width (RBC) [Ratio] 12.9 % 11.8 - 14.4 % [place] Hematocrit (Bld) [Volume fraction] 42.7 % 36.3 - 47.1 % [place] Hemoglobin (Bld) [Mass/Vol] 13.5 g/dL 11.9 - 15.1 g/dL [place] Immature granulocytes (Bld) [#/Vol] 1 % High 0 [place] Immature granulocytes (Bld) [#/Vol] 0.04 10*3/uL [place] Interpretation and review of laboratory results Abnormal [place] Lymphocytes (Bld) [#/Vol] 3.21 10*3/uL [place] Lymphocytes/100 WBC (Bld) 39 % 24 - 43 % [place] MCH (RBC) [Entitic mass] 31.0 pg 25.2 - 33.5 pg [place] MCHC (RBC) [Mass/Vol] 31.6 g/dL 28.4 - 34.8 g/dL [place] MCV (RBC) [Entitic vol] 97.9 fL 82.6 - 102.9 fL [place] Monocytes (Bld) [#/Vol] 0.62 10*3/uL [place] Monocytes/100 WBC (Bld) 8 % 3 - 12 % [place] Platelet mean volume (Bld) [Entitic vol] 9.4 fL 8.1 - 13.5 fL [place] Platelets (Bld) [#/Vol] 250 10*3/uL [place] Platelets (Bld) [#/Vol] NOT REPORTED [place] RBC (Bld) [#/Vol] 4.36 10*6/uL 3.95 - 5.1 1 m/uL [place] RBC morphology finding Nom (Bld) NOT REPORTED [place] Segmented neutrophils/100 WBC (Bld) 48 % 36 - 65 % [place] Segs Absolute 4.09 [place] WBC (Bld) [#/Vol] 0.0 10*3/uL 0.0 per 10 0 WBC [place] WBC (Bld) [#/Vol] 8.3 10*3/uL [place] WBC Morphology NOT REPORTED [place] Comprehensive Metabolic Pane uriel 02-25-2020 Albumin [Mass/Vol] 3.9 g/dL 3.5 - 5.2 g/dL [place] Albumin/Globulin [Mass ratio] 1.6 {ratio} [place] ALP [Catalytic activity/Vol] 60 U/L 35 - 104 U/L [place] ALT [Catalytic activity/Vol] 7 U/L 5 - 33 U/L [place] Anion gap [Moles/Vol] 7 mmol/L Low 9 - 17 mmol/L [place] AST [Catalytic activity/Vol] 14 U/L <32 [place] Bilirubin Ql (U) 0.52 mg/dL 0.3 - 1.2 mg/dL [place] Bun/Cre Ratio 11 [place] Calcium [Mass/Vol] 9.7 mg/dL 8.6 - 10. 4 mg/dL [place] Chloride [Moles/Vol] 105 mmol/L 98 - 10 7 mmol/L [place] CO2 [Moles/Vol] 27 mmol/L 20 - 31 mmol/L [place] Creatinine [Mass/Vol] 0.7 mg/dL 0.5 - 0.9 mg/dL [place] GFR >60 >60 mL/min [place] GFR Non- >60 >60 mL/min [place] Glucose [Mass/Vol] 95 mg/dL 70 - 99 mg/dL [place] Interpretation and review of laboratory results Abnormal [place] Potassium [Moles/Vol] 5.0 mmol/L 3.7 - 5.3 mmol/L [place] Protein [Mass/Vol] 6.3 g/dL Low 6.4 - 8.3 g/dL [place] Sodium [Moles/Vol] 139 mmol/L 135 - 144 mmol/L [place] Urea nitrogen [Mass/Vol] 8 mg/dL 8 - 23 mg/dL [place] Lipid Panelon 02-25-2020 Cholesterol [Mass/Vol] 162 mg/dL <200 [place] Comment on above: Cholesterol Guidelines: <200 Desirable 200-240 Borderline >240 Undesirable Cholesterol in HDL [Mass/Vol] 60 mg/dL >40 [place] Comment on above: HDL Guidelines: <40 Undesirable 40-59 Borderline >59 Desirable Cholesterol in LDL [Mass/Vol] 88 mg/dL 0 - 130 mg/dL [place] Comment on above: LDL Guidelines: <100 Desirable 100-129 Near to/above Desirable 130-159 Borderline >159 Undesirable Direct (measured) LDL and calculated LDL are not interchangeable tests. Cholesterol in VLDL [Mass/Vol] NOT REPORTED 1 - 30 mg/dL [place] Cholesterol.total/Chol esterol in HDL [Mass ratio] 2.7 {ratio} <5 [place] Triglyceride [Mass/Vol] 68 mg/dL <150 [place] Comment on above: Triglyceride Guidelines: <150 Desirable 150-199 Borderline 200-499 High >499 Very high Based on AHA Guidelines for fasting triglyceride, January 2012. Metabolic Panelon 02-25-2020 GFR/1.73 sq M predicted among non-blacks MDRD (S/P/Bld) [Vol rate/Area] [place], [place] Comment on above: Stage 1: Some [...] body mass. Additional eGFR calculator available at: http://www.Zadspace/multiple_crcl_2011.htm CBC Auto Differentialon 10-08 Basophils (Bld) [#/Vol] 0.07 10*3/uL [place] Basophils/100 WBC (Bld) 1 % 0 - 2 % [place] Differential Type NOT REPORTED [place] Eosinophils (Bld) [#/Vol] 0.20 10*3/uL [place] Eosinophils/100 WBC (Bld) 2 % 1 - 4 % [place] Erythrocyte distribution width (RBC) [Ratio] 13.2 % 11.8 - 14.4 % [place] Hematocrit (Bld) [Volume fraction] 43.8 % 36.3 - 47.1 % [place] Hemoglobin (Bld) [Mass/Vol] 13.6 g/dL 11.9 - 15.1 g/dL [place] Immature granulocytes (Bld) [#/Vol] 1 % High 0 [place] Immature granulocytes (Bld) [#/Vol] 0.05 10*3/uL [place] Interpretation and review of laboratory results Abnormal [place] Lymphocytes (Bld) [#/Vol] 3.08 10*3/uL [place] Lymphocytes/100 WBC (Bld) 32 % 24 - 43 % [place] MCH (RBC) [Entitic mass] 30.0 pg 25.2 - 33.5 pg [place] MCHC (RBC) [Mass/Vol] 31.1 g/dL 28.4 - 34.8 g/dL [place] MCV (RBC) [Entitic vol] 96.7 fL 82.6 - 102.9 fL [place] Monocytes (Bld) [#/Vol] 0.73 10*3/uL [place] Monocytes/100 WBC (Bld) 8 % 3 - 12 % [place] Platelet mean volume (Bld) [Entitic vol] 9.8 fL 8.1 - 13.5 fL [place] Platelets (Bld) [#/Vol] 278 10*3/uL [place] Platelets (Bld) [#/Vol] NOT REPORTED [place] RBC (Bld) [#/Vol] 4.53 10*6/uL 3.95 - 5.1 1 m/uL [place] RBC morphology finding Nom (Bld) NOT REPORTED [place] Segmented neutrophils/100 WBC (Bld) 56 % 36 - 65 % [place] Segs Absolute 5.63 [place] WBC (Bld) [#/Vol] 9.8 10*3/uL [place] WBC (Bld) [#/Vol] 0.0 10*3/uL 0.0 per 10 0 WBC [place] WBC Morphology NOT REPORTED [place] Comprehensive Metabolic Pane uriel 10-18-2019 Albumin [Mass/Vol] 4 g/dL 3.5 - 5.2 g/dL [place] Albumin/Globulin [Mass ratio] 1.4 {ratio} [place] ALP [Catalytic activity/Vol] 67 U/L 35 - 104 U/L [place] ALT [Catalytic activity/Vol] 13 U/L 5 - 33 U/L [place] Anion gap [Moles/Vol] 8 mmol/L Low 9 - 17 mmol/L [place] AST [Catalytic activity/Vol] 18 U/L <32 [place] Bilirubin Ql (U) 0.50 mg/dL 0.3 - 1.2 mg/dL [place] Bun/Cre Ratio 21 High [place] Calcium [Mass/Vol] 9.5 mg/dL 8.6 - 10. 4 mg/dL [place] Chloride [Moles/Vol] 107 mmol/L 98 - 10 7 mmol/L [place] CO2 [Moles/Vol] 28 mmol/L 20 - 31 mmol/L [place] Creatinine [Mass/Vol] 0.8 mg/dL 0.5 - 0.9 mg/dL [place] GFR >60 >60 mL/min [place] GFR Non- >60 >60 mL/min [place] Glucose [Mass/Vol] 110 mg/dL High 70 - 99 mg/dL [place] Interpretation and review of laboratory results Abnormal [place] Potassium [Moles/Vol] 5.6 mmol/L High 3.7 - 5.3 mmol/L [place] Protein [Mass/Vol] 6.9 g/dL 6.4 - 8.3 g/dL [place] Sodium [Moles/Vol] 143 mmol/L 135 - 144 mmol/L [place] Urea nitrogen [Mass/Vol] 17 mg/dL 8 - 23 mg/dL [place] Lipid Panelon 10-18-2019 Cholesterol [Mass/Vol] 149 mg/dL <200 [place] Comment on above: Cholesterol Guidelines: <200 Desirable 200-240 Borderline >240 Undesirable Cholesterol in HDL [Mass/Vol] 59 mg/dL >40 [place] Comment on above: HDL Guidelines: <40 Undesirable 40-59 Borderline >59 Desirable Cholesterol in LDL [Mass/Vol] 77 mg/dL 0 - 130 mg/dL [place] Comment on above: LDL Guidelines: <100 Desirable 100-129 Near to/above Desirable 130-159 Borderline >159 Undesirable Direct (measured) LDL and calculated LDL are not interchangeable tests. Cholesterol in VLDL [Mass/Vol] NOT REPORTED 1 - 30 mg/dL [place] Cholesterol.total/Chol esterol in HDL [Mass ratio] 2.5 {ratio} <5 [place] Triglyceride [Mass/Vol] 63 mg/dL <150 [place] Comment on above: Triglyceride Guidelines: <150 Desirable 150-199 Borderline 200-499 High >499 Very high Based on AHA Guidelines for fasting triglyceride, January 2012. Metabolic Panelon 10-18-2019 GFR/1.73 sq M predicted among non-blacks MDRD (S/P/Bld) [Vol rate/Area] [place], [place] Comment on above: Stage 1: Some [...] body mass. Additional eGFR calculator available at: http://www.Dermal Life.PayDivvy/multiple_crcl_2012.htm CBC Auto DifferentialOrdered By: Aye Nevarez on 04-22-2019 [facility] # 0.25 [facility] Work Phone: Absolute Immature Granulocyte 0.04 [facility] Work Phone: [facility] Lymph # 3.17 [facility] Work Phone: Absolute [place] # 0.67 [facility] Work Phone: Basophils (Bld) [#/Vol] 0.10 10*3/uL [employer] Work Phone: Basophils/100 WBC (Bld) 1 % 0 - 2 % [facility] Phone: Differential Type NOT REPORTED [employer] Phone: Eosinophils/100 WBC (Bld) 3 % 1 - 4 % [employer] Phone: Erythrocyte distribution width (RBC) [Ratio] 12.6 % 11.8 - 14.4 % [employer] Phone: Hematocrit (Bld) [Volume fraction] 43.9 % 36.3 - 47.1 % [employer] Phone: Hemoglobin (Bld) [Mass/Vol] 13.7 g/dL 11.9 - 15.1 g/dL [employer] Phone: Immature granulocytes/100 WBC (Bld) 1 % High 0 [employer] Phone: Interpretation and review of laboratory results Abnormal [employer] Phone: Lymphocytes/100 WBC (Bld) 36 % 24 - 43 % [employer] Phone: MCH (RBC) [Entitic mass] 30.0 pg 25.2 - 33.5 pg [employer] Phone: MCHC (RBC) [Mass/Vol] 31.2 g/dL 28.4 - 34.8 g/dL [employer] Phone: MCV (RBC) [Entitic vol] 96.3 fL 82.6 - 102.9 fL [employer] Phone: Monocytes/100 WBC (Bld) 8 % 3 - 12 % [employer] Phone: NRBC Automated 0.0 0.0 per 100 WBC [employer] Phone: Platelet Estimate NOT REPORTED [employer] Phone: Platelet mean volume (Bld) [Entitic vol] 9.1 fL 8.1 - 13.5 fL [employer] Phone: Platelets (Bld) [#/Vol] 308 10*3/uL [employer] Phone: RBC (Bld) [#/Vol] 4.56 10*6/uL 3.95 - 5.1 1 m/uL [employer] Phone: RBC morphology finding Nom (Bld) NOT REPORTED [employer] Phone: Segmented neutrophils/100 WBC (Bld) 51 % 36 - 65 % [employer] Phone: Segs Absolute 4.47 [employer] Work Phone: WBC (Bld) [#/Vol] 8.7 10*3/uL [employer] Phone: WBC Morphology NOT REPORTED [employer] [facility] Work Phone: Comprehensive Metabolic Pane lOrdered By: Aye Nevarez on 04-22-2019 Albumin [Mass/Vol] 4 g/dL 3.5 - 5.2 g/dL [employer] Phone: Albumin/Globulin [Mass ratio] 1.3 {ratio} [employer] Phone: ALP [Catalytic activity/Vol] 71 U/L 35 - 104 U/L [employer] Phone: ALT [Catalytic activity/Vol] 11 U/L 5 - 33 U/L [employer] Phone: Anion gap [Moles/Vol] 10 mmol/L 9 - 17 mmol/L [employer] Phone: AST [Catalytic activity/Vol] 16 U/L <32 [employer] Phone: Bilirubin [Mass/Vol] 0.43 mg/dL 0.3 - 1 .2 mg/dL [employer] Phone: Bun/Cre Ratio 19 [employer] Work Phone: Calcium [Mass/Vol] 9.7 mg/dL 8.6 - 10. 4 mg/dL [employer] Phone: Chloride [Moles/Vol] 102 mmol/L 98 - 10 7 mmol/L [employer] Phone: CO2 [Moles/Vol] 26 mmol/L 20 - 31 mmol/L [employer] Phone: Creatinine [Mass/Vol] 0.69 mg/dL 0.5 - 0.9 mg/dL [employer] Phone: GFR >60 >60 mL/min [employer] Phone: GFR Comment [employer] Phone: Comment on above: Average GFR for 70 o r more years old: 75 mL/min/1.73sq m Chronic Kidney Disease: <60 mL/min/1.73sq m Kidney failure: <15 mL/min/1.73sq m eGFR calculated using average adult body mass. Additional eGFR calculator available at: http://www.Zadspace/multiple_crcl_2012.htm GFR Non- >60 >60 mL/min [employer] Phone: GFR Staging [employer] Phone: Comment on above: Stage 1: Some kidney damage normal GFR Stage 2: Mild kidney damage GFR 60-89 Stage 3: Moderate kidney damage GFR 30-59 Stage 4: Severe kidney damage GFR 15-29 Stage 5: Severe kidney damage GFR <15 ESRD - chronic treatment by dialysis or transplant Glucose [Mass/Vol] 104 mg/dL High 70 - 99 mg/dL [employer] Phone: Interpretation and review of laboratory results Abnormal [employer] Phone: Potassium [Moles/Vol] 4.7 mmol/L 3.7 - 5.3 mmol/L [employer] Phone: Protein [Mass/Vol] 7.1 g/dL 6.4 - 8.3 g/dL [employer] Phone: Sodium [Moles/Vol] 138 mmol/L 135 - 144 mmol/L [employer] Phone: Urea nitrogen [Mass/Vol] 13 mg/dL 8 - 23 mg/dL [employer] Phone: Lipid PanelOrdered By: Aye Nevarez on 04-22-2019 Cholesterol [Mass/Vol] 155 mg/dL <200 [facility] [employer] Phone: Comment on above: Cholesterol Guidelines: <200 Desirable 200-240 Borderline >240 Undesirable Cholesterol in HDL [Mass/Vol] 52 mg/dL >40 [employer] Phone: Comment on above: HDL Guidelines: <40 Undesirable 40-59 Borderline >59 Desirable Cholesterol in LDL [Mass/Vol] 80 mg/dL 0 - 130 mg/dL [employer] Phone: Comment on above: LDL Guidelines: <100 Desirable 100-129 Near to/above Desirable 130-159 Borderline >159 Undesirable Direct (measured) LDL and calculated LDL are not interchangeable tests. Cholesterol.total/Chol esterol in HDL [Mass ratio] 3 {ratio} <5 [employer] Phone: Triglyceride [Mass/Vol] 114 mg/dL <150 [employer] Phone: Comment on above: Triglyceride Guidelines: <150 Desirable 150-199 Borderline 200-499 High >499 Very high Based on AHA Guidelines for fasting triglyceride, January 2012. VLDL NOT REPORTED 1 - 30 mg/dL [employer] Phone: MRI BRAIN WO CONTRASTon Chronic microvascula r disease without acute intracranial abnormality. Scattered foci of blooming artifact on susceptibility weighted imaging that is nonspecific and may relate to hypertensive microangiopathy versus amyloid angiopathy. [employer] EXAMINATION: MRI OF THE BRAIN WITHOUT [...] The soft tissues demonstrate no acute abnormality. [facility] [place], [place] Romero, pn Incoming Radiant Results From [employer] - 02/12/2019 2:18 PM EST EXAMINATION: MRI [...] relate to hypertensive microangiopathy versus amyloid angiopathy. [place] TSH without Reflexon 019 TSH Qn 4.31 m[IU]/L [place] Comprehensive Metabolic Pane uriel 12-26-2018 Albumin [Mass/Vol] 3.8 g/dL 3.5 - 5.2 g/dL [place] Albumin/Globulin [Mass ratio] 1.3 {ratio} [place] ALP [Catalytic activity/Vol] 72 U/L 35 - 104 U/L [place] ALT [Catalytic activity/Vol] 9 U/L 5 - 33 U/L [place] Anion gap [Moles/Vol] 11 mmol/L 9 - 17 mmol/L [place] AST [Catalytic activity/Vol] 14 U/L <32 [place] Bilirubin Ql (U) 0.43 mg/dL 0.3 - 1.2 mg/dL [place] Bun/Cre Ratio 14 [place] Calcium [Mass/Vol] 9.5 mg/dL 8.6 - 10. 4 mg/dL [place] Chloride [Moles/Vol] 102 mmol/L 98 - 10 7 mmol/L [place] CO2 [Moles/Vol] 24 mmol/L 20 - 31 mmol/L [place] Creatinine [Mass/Vol] 0.74 mg/dL 0.5 - 0.9 mg/dL [place] GFR >60 >60 mL/min [place] GFR Non- >60 >60 mL/min [place] Glucose [Mass/Vol] 110 mg/dL High 70 - 99 mg/dL [place] Interpretation and review of laboratory results Abnormal [place] Potassium [Moles/Vol] 4.8 mmol/L 3.7 - 5.3 mmol/L [place] Protein [Mass/Vol] 6.8 g/dL 6.4 - 8.3 g/dL [place] Sodium [Moles/Vol] 137 mmol/L 135 - 144 mmol/L [place] Urea nitrogen [Mass/Vol] 10 mg/dL 8 - 23 mg/dL [place] Lipid Panelon 12-26-2018 Cholesterol [Mass/Vol] 175 mg/dL <200 [place] Comment on above: Cholesterol Guidelines: <200 Desirable 200-240 Borderline >240 Undesirable Cholesterol in HDL [Mass/Vol] 51 mg/dL >40 [place], [place] Comment on above: HDL Guidelines: <40 Undesirable 40-59 Borderline >59 Desirable Cholesterol in LDL [Mass/Vol] 106 mg/dL 0 - 130 mg/dL [place], [place] Comment on above: LDL Guidelines: <100 Desirable 100-129 Near to/above Desirable 130-159 Borderline >159 Undesirable Direct (measured) LDL and calculated LDL are not interchangeable tests. Cholesterol in VLDL [Mass/Vol] NOT REPORTED 1 - 30 mg/dL [place] Cholesterol.total/Chol esterol in HDL [Mass ratio] 3.4 {ratio} <5 [place] Triglyceride [Mass/Vol] 90 mg/dL <150 [place] Comment on above: Triglyceride Guidelines: <150 Desirable 150-199 Borderline 200-499 High >499 Very high Based on AHA Guidelines for fasting triglyceride, January 2012. Metabolic Panelon 12-26-2018 GFR/1.73 sq M predicted among non-blacks MDRD (S/P/Bld) [Vol rate/Area] [place], [place] Comment on above: Stage 1: Some [...] body mass. Additional eGFR calculator available at: http://www.Dermal Life.PayDivvy/multiple_crcl_2011.htm Vital Signs Date Time Vital Sign Value Performing Clinician Faci lity 10-20-2020 18:30-0400 Body temperature 98.6 [degF] Radu Worrell MD Work Phone: [employer] Work Phone: 10-20-2020 18:30-0400 Diastolic blood pressure 53 mm[Hg] Radu Worrell MD Work Phone: [employer] Work Phone: 10-20-2020 18:30-0400 Heart rate 77 /min Radu Worrell MD Work Phone: [employer] Work Phone: 10-20-2020 18:30-0400 Respiratory rate 15 /min Radu Worrell MD Work Phone: [employer] Work Phone: 10-20-2020 18:30-0400 SaO2% (BldA) [Mass fraction] 96 % Radu Worrell MD Work Phone: [employer] Work Phone: 10-20-2020 18:30-0400 Systolic blood pressure 120 mm[Hg] Radu Worrell MD Work Phone: [employer] Work Phone: 10-20-2020 08:43-0400 Body height 149.9 cm Radu Worrell MD Work Phone: [employer] Work Phone: 10-20-2020 08:30-0400 Body mass index (BMI) [Ratio] 32.03 kg/m2 Radu Worrell MD Work Phone: [employer] Work Phone: 10-20-2020 08:30-0400 Body weight 71.94 kg Radu Worrell MD Work Phone: [employer] Work Phone: 08-05-2020 11:44-0400 Body temperature 98.8 [degF] Jungsik Kin DO Work Phone: [employer] Work Phone: 08-05-2020 11:44-0400 Diastolic blood pressure 66 mm[Hg] Jungsik Kin DO Work Phone: [employer] Work Phone: 08-05-2020 11:44-0400 Heart rate 80 /min Jungsik Kin DO Work Phone: [employer] Work Phone: 08-05-2020 11:44-0400 Respiratory rate 18 /min Jungsik Kin DO Work Phone: [employer] Work Phone: 08-05-2020 11:44-0400 SaO2% (BldA) [Mass fraction] 98 % Jungsik Kin DO Work Phone: [employer] Work Phone: 08-05-2020 11:44-0400 Systolic blood pressure 146 mm[Hg] Jungsik Kin DO Work Phone: [employer] Work Phone: 08-04-2020 00:52-0400 Body height 149.9 cm Zentricsik Kin DO Work Phone: [employer] Work Phone: 08-04-2020 00:52-0400 Body mass index (BMI) [Ratio] 32.74 kg/m2 Jungsik Kin DO Work Phone: [employer] Work Phone: 08-04-2020 00:52-0400 Body weight 73.53 kg Jungsik Kin DO Work Phone: [employer] Phone: Encounters Encounter Date Encounter Type Care Provider Facility Start: 05-09-2023 End: 05-10-2023 [facility] Start: 07-18-2022 End: 07-19-2022 ambulatory KEVIN STEINER Facility:[facility]1 Start: 07-08-2022 End: 07-08-2022 ambulatory ANN GEOFFREYDAVID ZHOU . Facility:[facility]1 Start: 09-23-2021 End: 09-24-2021 ambulatory AYE NEVAREZ [facility] Start: 09-23-2021 End: 09-23-2021 Subsequent hospital visit by physician Aye Nevarez DO Work Phone: [facility] Start: 04-28-2021 End: 04-29-2021 [facility] [place] [facility] Start: 10-19-2020 End: 10-21-2020 Evaluation and management of inpatient AYE [facility] Start: 10-19-2020 End: 10-20-2020 Evaluation and management of inpatient Radu Worrell MD Work Phone: [facility] Comment on above: Generalized weakness (Primary Dx); Mild dehydration; Acute cystitis without hematuria Start: 08-04-2020 End: 08-05-2020 ambulatory [facility] Start: 08-04-2020 End: 08-05-2020 Subsequent hospital visit by physician Damián Sanderson DO Work Phone: [facility] [employer] [facility] Start: 05-13-2020 End: 05-15-2020 Subsequent hospital visit by physician L[facility] Comment on above: Pain of right upper arm; Swollen vein Start: 02-25-2020 End: 02-25-2020 Subsequent hospital visit by physician Aye Nevarez [facility] Start: 10-18-2019 End: 10-18-2019 Subsequent [facility] Start: 04-22-2019 End: 04-22-2019 Subsequent hospital visit by physician Aye Nevarez DO Work Phone: [facility] Start: 02-12-2019 End: 02-14-2019 Subsequent hospital visit by physician Latha Mri Scanner [facility] MRI Comment on above: Lewy body dementia w ithout behavioral disturbance (HCC) Start: 12-26-2018 End: 12-26-2018 Subsequent hospital visit by physician Aye Nevarez [facility] Laboratory Procedures Date Procedure Procedure Detail Performing Clinician Start: 09-23-2021 Comprehensive metabo lic panel Aye Nevarez DO Work Phone: Start: 09-23-2021 Lipid panel [...] d ev cleared fda spec home use Mohammad Ali Jose MD Work Phone: Start: 08-05-2020 EEG Hansel [...] Start: 02-25-2020 Comprehensive metabo lic panel Aye Thomas Roque Work Phone: Start: 02-25-2020 Lipid panel Aye William Maxime sse Work Phone: Start: 10-18-2019 Blood count complete auto&auto difrntl wbc Aye Thomas Roque Work Phone: Start: 10-18-2019 Comprehensive metabo lic panel Aye Thomas Roque Work Phone: Start: 10-18-2019 Lipid panel Aye William Maxime sse Work Phone: Start: 04-22-2019 Comprehensive [...] Detail Author Start: 04-28-2022 Lipid panel Lipids [facility] [employer] Start: 12-09-2021 Influenza vaccination Flu vacc ine (Season Ended) [facility] Start: 10-20-2021 Creatinine measurement Creatinine mo [facility] [employer] Work Phone: Start: 10-20-2021 Potassium monitoring Potassium monit [facility] [employer] Work Phone: Start: 08-05-2021 Creatinine measurement Creatinine mo [facility] [employer] Work Phone: Start: 08-05-2021 Potassium monitoring Potassium monit [facility] Work Phone: Start: 02-24-2021 Creatinine measurement Creatinine mo [place], [place] Start: 02-24-2021 Lipid panel Lipid screen [place], [place] Start: 02-24-2021 Potassium monitoring Potassium monit [place], [place] Start: 12-09-2020 Influenza vaccination [facility] [employer] Work Phone: Start: 10-17-2020 Creatinine measurement Creatinine mo [facility], [place] Start: 10-17-2020 Lipid panel Lipid screen [facility], [place] Start: 10-17-2020 Potassium monitoring Potassium monit [place], [place] Start: 04-22-2020 Creatinine measurement Creatinine mo [place]itoring [place], [place] Start: 04-22-2020 Lipid panel Lipid screen [place], [place] Start: 04-22-2020 Potassium monitoring Potassium monit [place], [place] Start: 12-27-2019 Creatinine monitoring Creatinine mon [place], [place] Start: 12-27-2019 Lipid screen Lipid screen [place], [place] Start: 12-27-2019 Potassium monitoring Potassium monit [place], [place] Start: 12-10-2019 Influenza vaccination Flu vaccine (# 1) [place] Start: 07-18-2019 Creatinine monitoring Creatinine mon [place] Start: 07-18-2019 Potassium monitoring Potassium monit [place], [place] Start: 12-09-2018 Influenza vaccination Flu vaccine (# 1) [place] Start: 09-30-2018 Annual Wellness Visi t (AWV) Annual Wellness Visit (AWV) [place] Start: 12-30-2004 DEXA (modify frequen cy per FRAX score) DEXA (modify frequency per FRAX score) [place] Start: 12-30-2004 Pneumococcal 65+ yea rs Vaccine (1 - PCV) Pneumococcal 65+ years Vaccine (1 - PCV) [facility] Start: 12-30-2004 Pneumococcal 65+ yea rs Vaccine (1 of 1 - PPSV23) Pneumococcal 65+ years Vaccine (1 of 1 - PPSV23) [place] Start: 12-30-2004 Pneumococcal 65+ yea rs Vaccine (1 of 2 - PCV13) Pneumococcal 65+ years Vaccine (1 of 2 - PCV13) [place] Start: 12-30-1994 Screening for osteoporosis DEXA (modify frequency per FRAX score) [facility] Start: 12-30-1989 Shingles Vaccine (1 of 2) Shingles Vaccine (1 of 2) [facility] Start: 12-30-1958 DTaP/Tdap/Td vaccine (1 - Tdap) DTaP/Tdap/Td vaccine (1 - Tdap) [facility] Start: 1955 COVID-19 Vaccine (1 of 2) COVID-19 Vaccine (1 of 2) [facility] [employer] [place] Start: 1955 COVID-19 Vaccine (1) COVID-19 Vaccin e (1) [employer] Phone: Start: 1951 COVID-19 Vaccine (1) COVID-19 Vaccin e (1) [employer] Phone: Start: 1951 Depression Screen Depression Screen [facility] rumr: turn off the lights Start: 12-30-1950 DTaP/Tdap/Td vaccine (1 - Tdap) DTaP/Tdap/Td vaccine (1 - Tdap) [employer] Phone: Start: 12-30-1944 COVID-19 Vaccine (1) COVID-19 Vaccin e (1) [facility] rumr: turn off the lights Start: 1940 Annual Wellness Visi t (AWV) Annual Wellness Visit (AWV) [facility] End: 08-06-2020 Basic metabolic 2000 panel - Serum or Plasma Basic Metabolic Panel Lab Routine Tomorrow AM for 1 Occurrences starting 08/06/2020 until 08/06/2020 [employer] Phone: Comment on above: Tomorrow AM for 1 Oc currences starting 08/06/2020 until 08/06/2020 End: 08-06-2020 CBC panel - Blood by Automated count CBC Lab Routine Tomorrow AM for 1 Occurrences starting 08/06/2020 until 08/06/2020 [employer] Phone: Comment on above: Tomorrow AM for 1 Oc currences starting 08/06/2020 until 08/06/2020 Culture, Blood [facility] Phone: End: 02-12-2019 Lyme Ab Lyme Ab Lab Routine Once for 1 Occurrences starting 02/12/2019 until 02/12/2019 [place], [place] Comment on above: Once for 1 Occurrenc es starting 02/12/2019 until 02/12/2019 Lyme Ab Lyme Ab Lab Rout ine 02/12/2019 12:32 PM KAR Demarco Oxygen therapy [[facility] Data Set] [facility] [employer] Work Phone: Comment on above: Daily until disconti nued starting 08/04/2020 Daily until disconti nued starting 10/19/2020 Vitamin B12 & Folate Vitamin B12 & Folate Lab Routine 02/12/2019 12:32 PM KAR Demarco Payers Date Payer Category Payer Medicare MEDICARE MEDICAR E PART A AND B xxxxxxxxxxx 2015-Present [phone] [address] [place] [id number] xxxxxxxxxxx [id number] 2015 Medicare MEDICARE MEDICAR E PART A AND B [id number] 2015-Present [phone] [place] [id number] 2015 Medicare MEDICARE MEDICAR E PART A AND B [id number] 2015-Present [phone] [address] [place] [id number] [id number] 1959 Medicare [id number] 1940 Unknown [id number] 1940 Unknown [id number] 1940 Unknown [id number] 1940 Unknown [id number] 1940 Unknown [id number] 1940 Unknown [id number] 1940 Unknown [id number] Social History Date Type Detail Facility Start: 04-14-2015 End: 12-19-2017 Tobacco smoking status NHIS Former sm[place], [place] History of tobacco use Cigarette Smoker M [place], [place] Start: 04-14-2015 End: 12-19-2017 Cigarettes smoked current (pack per day) - Reported [place] Start: 12-19-2017 Alcohol intake No [place] Start: 11-25-2015 Tobacco Comment QUIT 1997 [place], [place] Start: 01-02-2017 Alcohol Comment very occasional [place], [place] Start: 1940 Sex Assigned At Not on file [place], [place] Start: 04-14-2015 End: 12-19-2017 Tobacco use and exposure Never used [place], [place] Start: 12-19-2017 End: 10-19-2020 Alcohol intake Current non-drinker of alcohol (finding) [facility] [employer] Work Phone: Exposure to SARS-CoV -2 (event) Not sure [facility] History of Present illness Narrative 10-20-2020 Dahiana Kilgore RN - 10/20/2020 10:06 PM Dahiana Linn RN - 10/20/2020 9:00 PM Dahiana Linn RN - 10/20/2020 8:40 PM Yaquelin Bennett RN - 10/20/2020 8:35 PM EDT Note Date & Type Note Facility 10-20-2020 History of Present illness Narrative Patient's family arrived and financial writer bagged up her personal items. AMA paperwork was signed by patient's POA. Project Reservoir Engineer took patient down via wheelchair. Project Reservoir Engineer educated patient and family about home safety. Patient is refusing to take all medications. Project Reservoir Engineer checked the locked cupboard for patient's personal items and gave her the bag of her clothes. Patient did not arrive in shoes. Project Reservoir Engineer also called counselor supervisor to update her. Patient is refusing to sign AMA paperwork. Project Reservoir Engineer removed patient left AC IV at this time. Project Reservoir Engineer called and spoke with Miracle, patient's POA. Miracle states she will pick her up. Project Reservoir Engineer passed phone to patient so she could speak with her daughter. Patient insisted that she would start walking home even after speaking with her daughter. Security remains in the room with patient. Dr. Cerda returned the call. Project Reservoir Engineer updated him on the patient and the situation. Dr. Cerda states that can sign out AMA and to make sure she gets a ride home. Project Reservoir Engineer will call patient's POA. Security at bedside with patient at this time. Patient has agreed to sit in chair but is still persistent on walking home at this time if daughter does not come and picker and packer patient. Security to remain at bedside. Project Reservoir Engineer has been in room with patient while [...] sit down on the bed or chair. Project Reservoir Engineer standing next to patient to ensure patient [...] in room phone multiple times of which financial writer handed patient the phone. Patient accused daughter of lying to her when daughter attempted to explain that patient was in the hospital and why she was brought in. Patient hung up on daughter multiple times even after daughter calling back multiple times. Project Reservoir Engineer continued to request for patient to sit down for patient's safety of which patient got verbally aggressive with financial writer. Project Reservoir Engineer to continue to be in room with patient til security arrives. Project Reservoir Engineer called security to sit with patient. Patient is verbally aggressive, swearing at staff. She states that she will walk home with or without her shoes while trying to shove past nursing staff. Patient is walking around the room and searching for her shoes and personal items. Patient is agitated and removed her IV. Project Reservoir Engineer was alerted when her bed alarm went off. Project Reservoir Engineer and second nurse cleaned her up and got her a new gown. Patient was confused and would not believe that she was in the hospital. Project Reservoir Engineer will call Dr. Cerda for an update and orders. Patient got up from the bed without using her call light. Project Reservoir Engineer responded to the bed alarm. When asked what she was doing, patient responded I'm walking out of here. Project Reservoir Engineer reminded patient that she was in the hospital and would not be able to leave during the night. Patient complied with this and got back in bed. Bed alarm was reset and patient was educated on using the call light again. Will continue to monitor and assess. Pt. Offered assistance with bathing, pt. Declines. Physical Therapy Facility/Department: [facility] MED [facility]G Daily Treatment Note NAME: Lilliana Patel : 1940 Date of Service: 10/20/2020 Discharge Recommendations: Continue to assess pending progress, Subacute/Senior Care Facility, Home with Home health PT Assessment [...] will perform transfers and bed mobility with AL Short term goal 3: Patient will tolerate [...] Time In 1120 Time Out [address] [place] [address] Met with Patient this a.m. and spoke with daughter, via telephone conversation, re: Patient discharge plans. Patient is an 79 year old , white female, admitted with a diagnosis of Inability to Walk. Patient has a secondary diagnosis of dementia noted. 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 [facility] is OK with daughter as well. Patient lives alone in [place]. She uses a walker, cane, wheelchair, shower [...] assistance with this expense. Referral made to [facility] this a.m. Telephone voicemail message left for their admissions director as well. Patient remains a 'Full Code' status and does not have medical directives currently on file. No further discharge planning needs are identified by Patient or her daughter at this point. BALL ROLLING MACHINE OPERATOR to assist with discharge placement as appropriate [...] loss Fluid Accumulation: 1 - Mild Extremities Animal Husbandry Professor Strength: Not Performed Estimated Daily Nutrient Needs: Energy (kcal): 5814-8196 (15-18); Weight Used for Energy Requirements: Current Protein (g): 54-63 (1.2-1.4); Weight Used for Protein Requirements: [place] Fluid (ml/day): 1300+; Method Used for Fluid [...] lb 1.6 oz (73.5 kg) (08/04 encounter) [place] Body Weight: 95 lbs; % [place] Body Weight 166.9 % BMI: 32 BMI [...] No discharge needs at this time Contact: [phone] Images from the original note were not included. [facility] Herbal Suspension To avoid potential drug interactions with herbal and nutritional supplements, it is the policy of [facility] to suspend all orders for these products at the time of admission. Per hospital policy the following herbal/nutritional supplements were suspended during the hospital stay: Fish oil Thank you, Melina Santos RPH, 10/20/2020, 7:26 AM Project Reservoir Engineer to bedside, pt activated bed alarm. Upon [...] everyone is on board to send to penitentiary facility except one of the other daughter in laws. Stated she is in denial. They would like to at least see rehab options. Navigator mostly completed. Medications list unable to completed due to patient unaware of medications. Daughter in law stated she would be back in the am. Will need completed. Bed alarm on. documented in this encounter [employer] Phone: History of Present illness Narrative 08-05-2020 Daniela Duggan OT - 08/05/2020 3:23 PM Jose Rai - 08/05/2020 3:20 PM Darlyn Copeland MD - 08/05/2020 1:[address], LD - 08/05/2020 10:43 AM EDT Note Date & Type Note Facility 08-05-2020 History of Present illness Narrative [facility] OCCUPATIONAL THERAPY MISSED TREATMENT NOTE [facility] NEUROSCIENCES 4A 4A-19/019-A Date: 08/05/2020 Patient Name: Lilliana Patel CSN: [id number] : 1940 (79 y.o.) Gender: female REASON FOR MISSED TREATMENT: Upon 1st attempt, pt was sound asleep as she was given haldol and ativan early this morning, upon 2nd attempt, pt became very agitated refusing participation in OT. Will check back later as time allows. [facility] INPATIENT PHYSICAL THERAPY DAILY NOTE [facility] 4A - 4A-19/019-A Time In: 1451 Time Out: 1515 Timed Code Treatment Minutes: 24 Minutes Minutes: 24 Date: 08/05/2020 Patient Name: Lilliana Patel, Gender: female : 1940 (79 y.o.) Referring Practitioner: Jack Mensah MD Diagnosis: AMS (altered mental status) Additional Pertinent Hx: Per H&P 79-year-old female patient who is a direct admission from [facility] ED where she presented with acute [...] Ambulation Assistance: Independent Transfer Assistance: Independent Active Alcoholic Counselor: No Additional Comments: pt mod I prior [...] mod I for safe enter/exit of home electrician technician goals Time Frame for long-term goals : NA due to short ELOS Following session, patient left in safe position with all fall risk precautions in place. Images from the original note were not included. Hospitalist Progress Note Patient: Lilliana Patel Unit/Bed:4A-19/019-A Date of : 1940 Acct: [id number] PCP: Aye Nevarez DO Date of Admission: [...] patient who is a direct admission from [facility] ED where she presented with acute [...] 0.6 CALCIUM 9.5 9.3 Recent Labs 08/03/20 09 AST 18 ALT 13 BILIDIR <0.08 BILITOT [...] questions) Estimated Daily Nutrient Needs: Energy (kcal): 2892-3734 kcals (15-18 kcals/kg/day); Weight Used for Energy Requirements: Current(74 kg 08/04/20) Protein (g): 54-90 grams (1.2-2 grams/kg IBW/day); Weight Used for Protein Requirements: [place](45 kg (adjusted IBW)) Nutrition Related Findings: Pt [...] unable to state. Per EMR: 08/29/18: 225#) [place] Body Weight: 95 lbs; BMI: 32.7 Adjusted [...] wants us to leave her alone. 255- [place] security left unit after patient safely back into bed. This nurse attempted to place new IV catheter as the previous on had been pulled. She attempted to swing at staff still remaining in the room. Patient received medication to help calm her down. Family called with no answer. [facility] INPATIENT PHYSICAL THERAPY EVALUATION [facility] 4A - 4A-19/019-A Time In: 1424 Time Out: 1449 Timed Code Treatment Minutes: 15 Minutes Minutes: 25 Date: 08/04/2020 Patient Name: Lilliana Patel, Gender: female : 1940 (79 y.o.) Referring Practitioner: Jack Mensah MD Diagnosis: AMS (altered mental status) Additional Pertinent Hx: Per H&P 79-year-old female patient who is a direct admission from [facility] ED where she presented with acute [...] Ambulation Assistance: Independent Transfer Assistance: Independent Active Alcoholic Counselor: No Additional Comments: pt mod I prior [...] Measures: Completed Dynamic Gait Total Score: 15 [facility] Inpatient Mobility Raw Score : 18 [facility] Inpatient T-Scale Score : 43.63 ASSESSMENT: Activity [...] mod I for safe enter/exit of home electrician technician goals Time Frame for electrician technician goals : NA due to short ELOS Following session, patient left in safe position with all fall risk precautions in place. Twan Escobedo PT, DPT [id number] Pt's daughter, Margaret called for a pt update and plan of care. HIPPA code provided. All concerns and questions were addressed. This RN contacted Dr. Mensah with the hospitalist team via [employer] message about pt has requested to go home. This RN have tried to explain to her that she needs to have the MRI done and needs to see Dr. Verdugo. Pt has become agreeable for now but she has informed this RN she does not want to be sent to a halfway. Patient admitted to 4A Room 19 via [...] declines family notification. documented in this encounter [employer] Phone: Clinical Note 08-04-2020 Note Date & [...] Kruse MD 08/04/20 Final result [facility] Clinical Note 08-04-2020 Note Date & Type [...] The brainstem and pituitary gland are normal. [employer] Phone: Evaluation note Note Date & Type Note Facility Evaluation note Diagnosis Seizure disorder (HCC)- Primary Unspecified epilepsy without mention of intractable epilepsy AMS (altered mental status) Essential hypertension Unspecified essential hypertension Bilateral carotid bruits TSH elevation Other abnormal blood chemistry documented in this encounter [employer] Phone: Evaluation note Note Date & Type Note Facility Evaluation note Diagnosis Inability to walk- Primary Difficulty in walking Generalized weakness Other malaise and fatigue Mild dehydration Dehydration Acute cystitis without hematuria Acute cystitis Essential hypertension Unspecified essential hypertension Dehydration documented in this encounter [employer] Phone: Hospital Discharge instructions Attachments Note Date & Type Note Facility Hospital Discharge instructions The following attachments cannot be sent through Care Everywhere.Dementia: General Info (Tanzanian)documented in this encounter [employer] Phone: Reason for Referral Status Reason Specialty Diagnoses / Procedures Referre d By Contact Referred To Contact Open Radiology Diagnoses Lewy body dementia without behavioral disturbance (HCC) Procedures MRI BRAIN WO CONTRAST Shubham Deshpande [address] [place] [address] Status Reason Specialty Diagnoses / Procedures Referred By Contact Referred To Contact Closed Vascular Lab Diagnoses Pain of right upper arm Swollen vein Procedures VL DUP UPPER EXTREMITY VENOUS RIGHT RoqueAye stanley, DO [address] [place] [address] [facility] Vascular Lab [address] [place] [address] Assessments Diagnosis Lewy body dementia without behavioral disturbance (HCC) Dementia with Lewy bodies Diagnosis Pain of right upper arm Pain in limb Swollen vein Advance Directives No Advanced Directives Records FoundDocuments on File Type Date Recorded Patient Vp [employer] Expl anation Advance Directives and Living Will Power of Street Railway Line Installer Latest Code Status on File Code Status Date Activated Date Inactivated Comments Full Code 12/02/2015 1:49 PM 12/02/2015 5:12 PM Documents on File Type Date Recorded Patient Vp [employer] Expl anation Advance Directives and Living Will Power of Street Railway Line Installer Latest Code Status on File Code Status Date Activated Date Inactivated Comments Full Code 12/02/2015 1:49 PM 12/02/2015 5:12 PM Documents on File Type Date Recorded Patient Vp [employer] Expl anation ACP-Advance Directive ACP-Power of Street Railway Line Installer Documents on File Type Date Recorded Patient Vp [employer] Expl anation ACP-Advance Directive ACP-Power of Street Railway Line Installer Latest Code Status on File Code Status Date Activated Date Inactivated Comments Full Code 08/04/2020 3:05 AM Full Code 12/02/2015 1:49 PM 12/02/2015 5:12 PM Latest Code Status on File Code Status Date Activated Date Inactivated Comments Full Code 10/19/2020 10:31 PM Full Code 08/04/2020 3:05 AM 08/05/2020 7:26 PM Healthcare Agents on File Name Relationship Healthcare Agent [facility] Communication Margaret Salcedo Child Primary Decision Maker Latest Code Status on File Code Status Date Activated Date Inactivated Comments Full Code 10/19/2020 10:31 PM 10/21/2020 12:19 AM Healthcare Agents on File Name Relationship Healthcare Agent [facility] p Communication Margaret Salcedo Child Primary [...] BRAIN WO CTRST Shubham Deshpande [address] [place] [address] [facility] Mri [address] [place] [address] Status Reason Specialty Diagnoses / Procedures Referred By Contact Referred To Contact Closed Vascular Lab Diagnoses Pain of right upper arm Swollen vein Procedures VL DUP UPPER EXTREMITY VENOUS RIGHT Aye Nevarez, DO [address] [place] [address] [facility] Vascular Lab [address] [place] [address] Reason Comments Status Reason Specialty Diagnoses / Procedures Referre d By Contact Referred To Contact Diagnoses AMS (altered mental status) Altered Mental status Darien Ferrara MD [address] [place] [address] [facility] Reason Comments Fatigue patient started feel ing weak a couple days ago Status Reason Specialty Diagnoses / Procedures Referre d By Contact Referred To Contact Diagnoses Inability to walk Casandra Cerda MD [address] [facility] [place] [address] [facility] Ordered Prescriptions (unrec ognized section and content) Prescription Sig Dispensed Refills Start Date End Da te QUEtiapine (SEROQUEL) 25 MG tablet Take 1 tablet by mouth nightly 60 tablet 3 08/05/2020 INFORMATION SOURCE (unrecogn ized section and content) DATE CREATED AUTHOR 08/12/2020 [facility] DATE CREATED AUTHOR AUTHOR'S ORGANIZ ATION 09/24/2021 [facility] DATE CREATED AUTHOR AUTHOR'S ORGANIZ ATION 07/20/2022 [facility] DATE CREATED AUTHOR AUTHOR'S ORGANIZ ATION 05/14/2023 [facility] Scheduled Active and Recently Administ ered Medications (unrecognized section and content) Medication Order 10/18/2020 10/19/2020 10/20/2020 cefTRIAXone (ROCEPHIN) 1000 mg IVPB in 50 mL D5W minibag (COMPLETED) 1,000 mg, Intravenous, ONCE, 1 dose, On Mon10/19/20 at 2014 2025 (New Bag - Provider: Sangeeta Bravo, HAFSA)2148 (Stopped - Provider: Sangeeta Bravo, HAFSA) donepezil (ARICEPT) tablet 10 mg 10 mg, [...] 1830 1851 (New Bag - Provider: Sangeeta Bravo, HAFSA)2205 (Handoff - Provider: Sangeeta Bravo RN)2300 (Stopped - Provider: Maddi Núñez) 0.9 % sodium chloride infusion Intravenous, at 85 mL/hr, CONTINUOUS, Starting on Mon10/19/20 at 2300 2235 (New Bag - Provider: Sofía Chavez RN) 0902 (New Bag - Provider: Lisandra Johnson, RN)1847 (New Bag - Provider: Dahiana Kilgore [...]
Care Teams (unrecognized sec tion and content) Composition [employer] Applier Relationship Specialty Start Date End Date Aye Nevarez, DO [address] [place] [address] PCP - General 01/02/12 FOR RECORDS PERTAINING [...] BE BASED ON THE PRIMARY CLINICAL RECORDS. [employer] [facility]. provides no warranty or guarantee of the accuracy or completeness of information in this document.
--- NOTE | 2023-10-07 20:33 | CT_ITS ---
The [address] [address] Patient Name: JARROD CORTEZ MRN: [id number] date: 1940 Sex: F Assigned Patient Location: ED.MAIN Current Patient Location: Accession/Order Number: [id number] Exam Date: 10/07/2023 21:20 Report Date: 10/07/2023 22:19 At the request of: BERT MUJICA Procedure: CT hip RT wo con EXAM: CT pelvis wo con, CT hip RT wo con, CT hip LT wo con HISTORY: The patient is an 82-year-old female, fall hip COMPARISON: CT scan of the right hip from 01/17/2023 and radiographs of the left hip from 09/29/2023. TECHNIQUE: CT images were obtained through the bony pelvis and both hips without intravenous contrast and reformatted in [address] scans were obtained individually through the right hip and left hip. This report encompasses all of these CT scans. Dose reduction techniques were achieved by using automated exposure control and/or adjustment of mA and/or kV according to patient size and/or use of iterative reconstruction technique. FINDINGS: The large jrqzz-ml-cobt images demonstrate no fractures or cortical discontinuities within either proximal femur or elsewhere throughout the bony pelvis. The sacroiliac joints are maintained bilaterally. The pubic symphysis is maintained. The small nkwqh-xf-jgqn images of the right hip demonstrate no acute fractures within or around the right hip. 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 There is moderate osteoarthritic narrowing of the right hip joint with small osteophytes arising from the right femoral head, and this is unchanged since the prior CT scan of 01/17/2023. The small hxgcu-dh-higu images of the left hip demonstrate no fractures within or around the left hip. There is moderate osteoarthritic narrowing of the left hip joint with small osteophytes arising from the left femoral head, and this is similar to the findings in the contralateral right hip. The soft tissue images of the right and left hip demonstrate focal densities within the subcutaneous tissues lateral to both hips, larger on the left. These could represent subcutaneous hematomas. The soft tissue images of the entire pelvis demonstrate no other abnormal fluid collections on this non-contrast enhanced study. CT/CT hip RT wo con IMPRESSION: 1. No fractures of the right hip, left hip, or elsewhere throughout the bony pelvis. 2. 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 3. Suspected hematomas of the subcutaneous tissues lateral to both hips, larger on the left. Electronically authenticated by: LILY DE LA ROSA Date: 10/07/2023 22:19
--- NOTE | 2023-10-07 20:33 | CT_ITS ---
The [address] [address] Patient Name: JARROD CORTEZ MRN: [id number] date: 1940 Sex: F Assigned Patient Location: ED.MAIN Current Patient Location: Accession/Order Number: [id number] Exam Date: 10/07/2023 21:20 Report Date: 10/07/2023 22:19 At the request of: BERT MUJICA Procedure: CT hip LT wo con EXAM: CT pelvis wo con, CT hip RT wo con, CT hip LT wo con HISTORY: The patient is an 82-year-old female, fall hip COMPARISON: CT scan of the right hip from 01/17/2023 and radiographs of the left hip from 09/29/2023. TECHNIQUE: CT images were obtained through the bony pelvis and both hips without intravenous contrast and reformatted in [address] scans were obtained individually through the right hip and left hip. This report encompasses all of these CT scans. Dose reduction techniques were achieved by using automated exposure control and/or adjustment of mA and/or kV according to patient size and/or use of iterative reconstruction technique. FINDINGS: The large iysrb-pq-veha images demonstrate no fractures or cortical discontinuities within either proximal femur or elsewhere throughout the bony pelvis. The sacroiliac joints are maintained bilaterally. The pubic symphysis is maintained. The small ooyfj-vc-lkvc images of the right hip demonstrate no acute fractures within or around the right hip. 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 There is moderate osteoarthritic narrowing of the right hip joint with small osteophytes arising from the right femoral head, and this is unchanged since the prior CT scan of 01/17/2023. The small hiimn-ar-sany images of the left hip demonstrate no fractures within or around the left hip. There is moderate osteoarthritic narrowing of the left hip joint with small osteophytes arising from the left femoral head, and this is similar to the findings in the contralateral right hip. The soft tissue images of the right and left hip demonstrate focal densities within the subcutaneous tissues lateral to both hips, larger on the left. These could represent subcutaneous hematomas. The soft tissue images of the entire pelvis demonstrate no other abnormal fluid collections on this non-contrast enhanced study. CT/CT hip LT wo con IMPRESSION: 1. No fractures of the right hip, left hip, or elsewhere throughout the bony pelvis. 2. 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 3. Suspected hematomas of the subcutaneous tissues lateral to both hips, larger on the left. Electronically authenticated by: LILY DE LA ROSA Date: 10/07/2023 22:19
--- NOTE | 2023-10-07 20:33 | CT_ITS ---
The [address] [address] Patient Name: JARROD CORTEZ MRN: [id number] date: 1940 Sex: F Assigned Patient Location: ED.MAIN Current Patient Location: Accession/Order Number: [id number] Exam Date: 10/07/2023 21:20 Report Date: 10/07/2023 22:19 At the request of: BERT MUJICA Procedure: CT pelvis wo con EXAM: CT pelvis wo con, CT hip RT wo con, CT hip LT wo con HISTORY: The patient is an 82-year-old female, fall hip COMPARISON: CT scan of the right hip from 01/17/2023 and radiographs of the left hip from 09/29/2023. TECHNIQUE: CT images were obtained through the bony pelvis and both hips without intravenous contrast and reformatted in [address] scans were obtained individually through the right hip and left hip. This report encompasses all of these CT scans. Dose reduction techniques were achieved by using automated exposure control and/or adjustment of mA and/or kV according to patient size and/or use of iterative reconstruction technique. FINDINGS: The large aathx-jb-aaxi images demonstrate no fractures or cortical discontinuities within either proximal femur or elsewhere throughout the bony pelvis. The sacroiliac joints are maintained bilaterally. The pubic symphysis is maintained. The small ozadv-bh-giaz images of the right hip demonstrate no acute fractures within or around the right hip. 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 There is moderate osteoarthritic narrowing of the right hip joint with small osteophytes arising from the right femoral head, and this is unchanged since the prior CT scan of 01/17/2023. The small xvfbn-cp-jpjh images of the left hip demonstrate no fractures within or around the left hip. There is moderate osteoarthritic narrowing of the left hip joint with small osteophytes arising from the left femoral head, and this is similar to the findings in the contralateral right hip. The soft tissue images of the right and left hip demonstrate focal densities within the subcutaneous tissues lateral to both hips, larger on the left. These could represent subcutaneous hematomas. The soft tissue images of the entire pelvis demonstrate no other abnormal fluid collections on this non-contrast enhanced study. CT/CT pelvis wo con IMPRESSION: 1. No fractures of the right hip, left hip, or elsewhere throughout the bony pelvis. 2. 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 3. Suspected hematomas of the subcutaneous tissues lateral to both hips, larger on the left. Electronically authenticated by: LILY DE LA ROSA Date: 10/07/2023 22:19
--- NOTE | 2023-10-07 20:35 | ED_ITS ---
HPI HPI - Fall General Chief Complaint: Fall Stated Complaint: fall Time Seen by Provider: 10/07/23 20:31 Source: EMR Mode of arrival: ambulance Limitations: altered mental status History of Present Illness HPI Narrative: [facility] demented patient on hospice. History of falling. Per nursing staff she got out of her wheel chair and fell. Reportedly complaining of right hip pain. Patient arrives in no distress. She is pleasant but not able to provide any history. MD complaint: Reports fall Related Data Home Medications ?Medication ?Instructions ?Recorded ?Confirmed hyoscyamine sulfate 0.125 mg 0.125 mg PO Q4H PRN secretions 09/19/22 10/07/23 tablet (Levsin) ibuprofen 600 mg tablet 400 mg PO Q12H pain 09/19/22 10/07/23 levetiracetam 500 mg tablet 500 mg PO Q12H 09/19/22 10/07/23 (Keppra) loperamide 2 mg capsule 2 mg PO Q12H PRN loose stool 06/25/23 10/07/23 lorazepam 0.5 mg tablet (Ativan) 0.5 mg PO Q12H PRN agitation 07/11/23 10/07/23 bisacodyl 10 mg rectal suppository 10 mg VT DAILY PRN constipation 10/07/23 10/07/23 (Dulcolax (bisacodyl)) lorazepam 2 mg tablet 2 mg PO Q15M PRN seizures 10/07/23 10/07/23 morphine concentrate 100 mg/5 mL 5 mg sublingual Q1H PRN pain 10/07/23 10/07/23 (20 mg/mL) oral solution promethazine 25 mg tablet 25 mg PO Q6H PRN nausea and 10/07/23 10/07/23 vomiting Allergies Allergy/AdvReac Type Severity Reaction Status Date / Time No Known Drug Allergies Allergy Verified 10/07/23 20:25 Opioid HPI Opioid Management Most Recent Pain and Opioid Data: Last Pain Scale 5 09/29/23 12:52 Last Pain Intensity 0 06/26/23 11:28 Last ORT Total Score 0 07/11/23 18:52 Last ORT Risk Category Low Risk 07/11/23 18:52 Review of Systems ROS Status of ROS 10 or more systems reviewed and unremark able except as noted in history and below [facility] Medical History (Updated 10/07/23 @ 22:50 by Carlos Gilbert MD) Pneumonia ?J18.9 - Pneumonia, unspecified organism (ICD-10) Stage 3a chronic kidney disease (CKD) ?N18.31 - Chronic kidney disease, stage 3a (ICD-10) Seizure disorder ?G40.909 - Epilepsy, unspecified, not intractable, without status epilepticus (ICD-10) Dementia ?F03.90 - Unspecified dementia, unspecified severity, without behavioral disturbance, psychotic disturbance, mood disturbance, and anxiety (ICD-10) Hypoxia ?R09.02 - Hypoxemia (ICD-10) COVID ?U07.1 - COVID-19 (ICD-10) Abscess ?L02.91 - Cutaneous abscess, unspecified (ICD-10) Contusion of hip ?S70.00XA - Contusion of unspecified hip, initial encounter (ICD-10) Fall ?W19.XXXA - Unspecified fall, initial encounter (ICD-10) Hypothyroidism ?E03.9 - Hypothyroidism, unspecified (ICD-10) Syncope due to orthostatic hypotension ?I95.1 - Orthostatic hypotension (ICD-10) Acute dehydration ?E86.0 - Dehydration (ICD-10) Schizophrenia ?F20.9 - Schizophrenia, unspecified (ICD-10) Depression ?F32.A - Depression, unspecified (ICD-10) Social History (Updated 07/11/23 @ 19:07 by Daisy Rock LPN) Within the past year, how often did you have a drink containing alcohol: never Within the past year, how often did you have six or more drinks on one occasion: never Score interpretation: A score less than 3 is consistent with normal alcohol consumption. Smoking status: Former smoker Second hand tobacco smoke exposure: No Non-prescribed substance use: denies use Previous occupational history: retired Highest level of school completed/degree received: high school graduate Are you now , , , , never or living with a partner: don't know In a typical week, how many times do you talk on the telephone with family, friends, or neighbors: twice per week How often do you get together with friends or relatives: twice per week How often do you attend gnosticist or alevism services: never Do you belong to any clubs or organizations such as gnosticist groups unions, [employer] or athletic groups, or school groups: no Total score: 1 Score interpretation: A score of less than or equal to 1 indicates the most socially isolated. Little interest or pleasure in doing things: not at all Feeling down, depressed, or hopeless: not at all Feel stressed/tense/nervous/anxious/difficulty sleeping: not at all Do you think of yourself as: straight/heterosexual Gender Identity: female Exam Constitutional Vital Signs, click to edit/add: Last Vital Signs Temp 97.8 F 10/07/23 20:20 Pulse 74 10/07/23 22:05 Resp 20 10/07/23 22:05 BP 120/58 10/07/23 22:05 Pulse Ox 95 10/07/23 22:05 O2 Del Method Room Air 10/07/23 22:05 Common normals: no apparent distress, average body habitus, no limitations, alert and well nourished HENMT Common normals: normocephalic and head/scalp atraumatic Eye Common normals: EOMs intact bilaterally Chest Common normals: inspection of chest normal Respiratory Common normals: normal respiratory effort and no retractions Cardio Common normals: regular rate, regular rhythm, S1 normal heart sound and S2 normal heart sound GI Common normals: Normal to inspection, nondistended, normoactive bowel sounds present, soft to palpation and non-tender Back & Pelvis Other: left hip tender. right hip nontender Neuro Common normals: CN's II-XII intact bilaterally, moves all extremities and no focal motor deficits Psych Appearance: grossly normal Course Vital Signs Vital signs: Vital Signs Temperature 97.8 F 10/07/23 20:20 Pulse Rate 66 10/07/23 20:20 Respiratory Rate 18 10/07/23 20:20 Blood Pressure 137/52 10/07/23 20:20 Pulse Oximetry 97 10/07/23 20:20 Oxygen Delivery Method Room Air 10/07/23 20:20 Temperature 97.8 F 10/07/23 20:20 Pulse Rate 74 10/07/23 22:05 Respiratory Rate 20 10/07/23 22:05 Blood Pressure 120/58 10/07/23 22:05 Pulse Oximetry 95 10/07/23 22:05 Oxygen Delivery Method Room Air 10/07/23 22:05 MDM - Fall MDM Narrative Medical decision making narrative: [facility] patient fell trying to get out of the wheel chair. presents with hip pain. left hip is tender. No shortening. CTs with evidence of hematoma both hips. Patient has history of falling. she is hospice patient. Her daughter informed of the finding and patient is discharged into the care of her daughter who will drive her back to the [facility] Imaging Data Chest x-ray: Radiologist's impression: ITS Impressions Hip CT 10/07/23 20:33 IMPRESSION: 1. No fractures of the right hip, left hip, or elsewhere throughout the bony pelvis. 2. 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 3. Suspected hematomas of the subcutaneous tissues lateral to both hips, larger on the left. Electronically authenticated by: LILY DE LA ROSA Date: 10/07/2023 22:[address] 10/07/23 20:33 IMPRESSION: 1. No fractures of the right hip, left hip, or elsewhere throughout the bony pelvis. 2. 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 3. Suspected hematomas of the subcutaneous tissues lateral to both hips, larger on the left. Electronically authenticated by: LILY DE LA ROSA Date: 10/07/2023 22:[address] 10/07/23 20:33 IMPRESSION: 1. No fractures of the right hip, left hip, or elsewhere throughout the bony pelvis. 2. 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 3. Suspected hematomas of the subcutaneous tissues lateral to both hips, larger on the left. Electronically authenticated by: LILY DE LA ROSA Date: 10/07/2023 22:19 Discharge Plan Discharge Stand Alone Forms: Portal Instructions Chief Complaint: Fall Clinical Impression: Contusion of hip, left Patient Disposition: Home, Self-Care Prescriptions / Home Meds: No Action ibuprofen 600 mg tablet 400 mg PO Q12H levetiracetam [Keppra] 500 mg tablet 500 mg PO Q12H hyoscyamine sulfate [Levsin] 0.125 mg tablet 0.125 mg PO Q4H PRN (Reason: secretions) loperamide 2 mg capsule 2 mg PO Q12H PRN (Reason: loose stool) Rx Instructions: 2 mg 1st dose then 1 tablet BID as needed no more then 4tablets daily morphine concentrate 100 mg/5 mL (20 mg/mL) solution 5 mg sublingual Q1H PRN (Reason: pain) bisacodyl [Dulcolax (bisacodyl)] 10 mg suppository 10 mg VT DAILY PRN (Reason: constipation) promethazine 25 mg tablet 25 mg PO Q6H PRN (Reason: nausea and vomiting) lorazepam 2 mg tablet 2 mg PO Q15M PRN (Reason: seizures) lorazepam [Ativan] 0.5 mg tablet 0.5 mg PO Q12H PRN (Reason: agitation) Print Language: Maldivian Instructions: Hip Contusion (ED) Referrals: Physician,Non-Staff, MD [Primary Care Provider] - 1 week
[2023-10-07 21:14] VITALS: BP 109/77
[2023-10-07 21:44] VITALS: BP 115/90; PULSE 76; O2SAT 96
[2023-10-07 22:05] VITALS: BP 120/58; PULSE 74; O2SAT 95
[2023-10-07 23:22] VITALS: BP 111/87; PULSE 72; O2SAT 95
== END 2023-10-07 23:24 | disposition home or self-care (01) ==
PROVIDERS: Emergency Provider Internal Medicine
DX: S70.02XA Contusion of left hip, initial encounter (principal); F03.90 Unspecified dementia, unspecified severity, without behavioral disturbance, psychotic disturbance, mood disturbance, and anxiety; W05.0XXA Fall from non-moving wheelchair, initial encounter; Z87.891 Personal history of nicotine dependence
CPT/HCPCS: 72192; 73700; 99284

== ENCOUNTER 2023-10-12 06:50 | Emergency (ER) | payer MEDICARE, SELFPAY ==
[2023-10-12 06:51] VITALS: BP 122/52; PULSE 71; TEMP 36.7; O2SAT 99
--- OUTSIDE RECORDS SUMMARY | 2023-10-12 06:57 | XMS_ITS | CCD ---
Author Organization [facility] Care Team Providers Care Rail Assembler Name Role Phone Aye Nevarez Primary Care [...] Substituted for Omeprazole (PRILOSEC). polyethylene glycol 3350 01992 mg powder for oral solution (2 sources) [...] 07-12-2022 Episodic Other aftercare (1 source) [facility] [place] [facility] (current[facility] drug therapy; Translations: [[address] CURRENT DRUG THERAPY] Onset: 07-20-2022 Episodic Other [...] 05-09-2023 Bilirubin Ql (U) Negative Normal NEG [facility] Comment on above: Performed By: #### U A #### [facility] ([id number]) [address] [place] [address] BLOOD/HGB Negative Normal NEG [facility] Comment on above: Performed By: #### U A #### [facility] ([id number]) [address] [place] [address] 94666 Color (U) YELLOW Normal YELLOW [facility] Comment on above: Performed By: #### U A #### [facility] ([id number]) [address] [place] [address] 11628 Glucose Ql (U) Negative Normal NEG [facility] Comment on above: Performed By: #### U A #### [facility] ([id number]) [address] [place] [address] 73731 Ketones Ql (U) Negative Normal NEG [facility] Comment on above: Performed By: #### U A #### [facility] ([id number]) [address] [place] [address] [place] [address] Leukocyte esterase Test strip Ql (U) Negative Normal NEG [facility] Comment on above: Performed By: #### U A #### [facility] ([id number]) [address] [place] [address] 76558 Nitrite Ql (U) Negative Normal NEG [facility] Comment on above: Performed By: #### U A #### [facility] ([id number]) [address] [place] [address] [place] [address] pH (U) 6.5 [pH] Normal 5.0-8.5 [facility] Comment on above: Performed By: #### U A #### [facility] ([id number]) [address] [place] [address] 94145 Protein Ql (U) Negative Normal NEG [facility] Comment on above: Performed By: #### U A #### [facility] ([id number]) [address] [place] [address] 22566 Specific gravity (U) [Rel density] 1.010 Normal 1.003-1.035 [facility] Comment on above: Performed By: #### U A #### [facility] ([id number]) [address] [place] [address] TURBIDITY CLEAR Normal CLEAR [facility] Comment on above: Performed By: #### U A #### [facility] ([id number]) [address] [place] [address]241 Urinalysis dipstick W Reflex Microscopic panel (U) URINE RECEIVED WITHOUT PRESERVATIVE-DELAYS IN TRANSPORT MAY AFFECT RESULTS.INTERPRET WITH CAUTION AND CLINICAL CORRELATION IS RECOMMENDED. Normal [facility] Comment on above: Performed By: #### U A #### [facility] ([id number]) [address] [place] [address] 57099 Urobilinogen Qn (U) 0.2 {Kannan'U}/dL Normal <1.1 [facility] Comment on above: Performed By: #### U A #### [facility] ([id number]) [address] [place] [address]2001 URINE CULTUREon 05-09-2023 Bacteria identified Cx Nom [...] F TRIMETH/SULFAMETHOXAZOL E S <=04/28 F Susceptible [facility] Comment on above: Performed By: #### 6 30-4 #### [facility] ([id number]) [address] [place] [address], [address] [place] [address] AMMONIAon 07-18-2022 Ammonia (P) [Mass/Vol] ug/dL Critically low 11-32 [facility] Comment on above: Performed By: #### H STROPN, TSH, CMP #### [facility] [address] [place] [address] Dr. King Moya CBC AUTO DIFFon 07-18-2022 BASO # 0.1 103/ul Normal 0.0-0.1 [facility] Comment on above: Performed By: #### C BC #### [facility] [address] [address] [address] King Moya Basophils/100 WBC (Bld) 0.7 % Normal 0.2-2.0 [facility] Comment on above: Performed By: #### C BC #### [facility] [address] [address] [address] King Moya EO # 0.1 103/ul Normal 0.0-0.[address] [facility] Comment on above: Performed By: #### C BC #### [facility] [address] [address] [address] King Moya Eosinophils/100 WBC (Bld) 1.4 % Normal 0.9-7.0 [facility] Comment on above: Performed By: #### C BC #### [facility] [address] [place] [address] Dr. King Moya Erythrocyte distribution width (RBC) [Ratio] 12.7 % Normal 11.0-15.0 [facility] Comment on above: Performed By: #### C BC #### [facility] [address] [address] [address] King Moya Hematocrit (Bld) [Volume fraction] 32.5 % Critically low 36.0-48.0 [facility] Comment on above: Performed By: #### C BC #### [facility] [address] [address] [address] King Moya Hemoglobin (Bld) [Mass/Vol] 10.6 g/dL Critically low 12.0-16.0 [facility] Comment on above: Performed By: #### C BC #### [facility] [address] [address] [address] King Moya IG # 0.05 10e3/ul Critically high 0.00-0.03 [facility] Comment on above: Performed By: #### C BC #### [facility] [address] [address] [address] King Moya IG % 0.6 % Critically high 0.0-0.5 [facility] Comment on above: Performed By: #### C BC #### [facility] [address] [address] [address] King Moya LYMPH # 2.8 103/ul Normal 1.2-3.8 [facility] Comment on above: Performed By: #### C BC #### [facility] [address] [address] [address] King Moya Lymphocytes/100 WBC (Bld) 31.0 % Normal 20.5-60.0 [facility] Comment on above: Performed By: #### C BC #### [facility] [address] [address] [address] King Moya MANUAL DIFF REQ NO Normal [facility] Comment on above: Performed By: #### C BC #### [facility] [address] [place] [address] Dr. King Moya MCH (RBC) [Entitic mass] 31.5 pg Normal 26.7-34.0 [facility] Comment on above: Performed By: #### C BC #### [facility] [address] [address] [address] King Moya MCHC (RBC) [Mass/Vol] 32.6 g/dL Normal 29.9-35.2 [facility] Comment on above: Performed By: #### C BC #### [facility] [address] [address] [address] King Moya MCV (RBC) [Entitic vol] 96.4 fL Normal 81.0-99.0 [facility] Comment on above: Performed By: #### C BC #### [facility] [address] [place] [address] Dr. King Moya MONO # 0.8 103/ul Normal 0.3-0.8 [facility] Comment on above: Performed By: #### C BC #### [facility] [address] [place] [address] Dr. King Moya Monocytes/100 WBC (Bld) 9.1 % Normal 1.7-12.0 [facility] Comment on above: Performed By: #### C BC #### [facility] [address] [place] [address] Dr. King Moya NEUT # 5.1 103/ul Normal 1.4-6.5 [facility] Comment on above: Performed By: #### C BC #### [facility] [address] [place] [address] Dr. King Moya Neutrophils/100 WBC (Bld) 57.2 % Normal 43.0-75.[address] [facility] Comment on above: Performed By: #### C BC #### [facility] [address] [place] [address] Dr. King Moya Platelet mean volume (Bld) [Entitic vol] 9.2 fL Critically low 9.5-13.5 [facility] Comment on above: Performed By: #### C BC #### [facility] [address] [place] [address] Dr. King Moya PLT 258 103/ul Normal 150-[address] [facility] Comment on above: Performed By: #### C BC #### [facility] [address] [address] [address] King Moya RBC 3.37 106/ul Critically low 4.20-5.40 [facility] Comment on above: Performed By: #### C BC #### [facility] [id number] King Moya WBC 8.9 103/ul Normal 4.0-11.0 [facility] Comment on above: Performed By: #### C BC #### [facility] [address] [place] [address] Dr. King Moya Covid-19 PCR ([facility])on 07-09 SARS-CoV-2 (COVID-19) RNA TEMO+probe Ql (Unsp spec) Not detected Normal NOT DETECTED [facility] Comment on above: Result Comment: [...] for this test is supported by the [employer] Analyst of Health and Human Service's declaration that [...] By: #### H STROPN, TSH, CMP #### [facility] [address] [place] [address] Dr. King Moya ER URINE PROFILEon 3 Bilirubin Ql (U) Negative Normal NEGATIVE [facility] Comment on above: Performed By: #### E RUR #### [facility] [address] [place] [address] Dr. King Moya Clarity (U) CLEAR Normal CLEAR [facility] Comment on above: Performed By: #### E RUR #### [facility] [address] [place] [address] Dr. King Moya Color (U) YELLOW Normal YELLOW [facility] Comment on above: Performed By: #### E RUR #### [facility] [address] [place] [address] Dr. King MELISSA A micrscopic examination will be performed if indicated. Normal [facility] Comment on above: Performed By: #### E RUR #### [facility] [address] [place] [address] Dr. King Moya Glucose Ql (U) Negative Normal NEGATIVE [facility] Comment on above: Performed By: #### E RUR #### [facility] [address] [place] [address] Dr. King Moya Hemoglobin Ql (U) Negative Normal NEGATIVE [facility] Comment on above: Performed By: #### E RUR #### [facility] [address] [place] [address] Dr. King Moya Ketones Ql (U) 40 mg/dl Abnormal NEGATIVE [facility] Comment on above: Performed By: #### E RUR #### [facility] [address] [place] [address] Dr. King Moya LEUKOCYTES Negative Normal NEGATIVE [facility] Comment on above: Performed By: #### E RUR #### [facility] [address] [place] [address] Dr. King Moya Nitrite Ql (U) Negative Normal NEGATIVE [facility] Comment on above: Performed By: #### E RUR #### [facility] [address] [place] [address] Dr. King Moya pH (U) 6.5 [pH] Normal 5-9 [facility] Comment on above: Performed By: #### E RUR #### [facility] [address] [place] [address] Dr. King Moya SPEC GRAVITY 1.020 Normal 1.005-<=1.[address] [place] [address] Comment on above: Performed By: #### E RUR #### [facility] [address] [place] [address] Dr. King Moya UA PROTEIN Negative Normal NEGATIVE/ TRACE [facility] Comment on above: Performed By: #### E RUR #### [facility] [address] [place] [address] Dr. King Moya UR MICRO IND NOT INDICATED Normal [facility] Comment on above: Performed By: #### E RUR #### [facility] [address] [place] [address] Dr. King Moya Urobilinogen Qn (U) 0.2 {Kannan'U}/dL Normal 0.2 - 1. 0 [facility] Comment on above: Performed By: #### E RUR #### [facility] [address] [place] [address] Dr. King Moya FREE T3on 07-18-2022 FREE T3 1.64 pg/mlL Critically low 2.18-3.98 [facility] Comment on above: Performed By: #### H STROPN, TSH, CMP #### [facility] [address] [place] [address] Dr. King Moya FREE T4on 07-18-2022 Free T4 [Mass/Vol] 0.73 ng/dL Critically low 0.76-1.46 [facility] Comment on above: Performed By: #### H STROPN, TSH, CMP #### [facility] [address] [place] [address] Dr. King Moya LACTATE/LACTIC ACIDon 2022 Lactate [Moles/Vol] 1.1 mmol/L Normal 0.4-2.0 [facility] Comment on above: Performed By: #### L ACT #### [facility] [address] [place] [address] Dr. King Moya PROF 14(COMP METB)on 023 Albumin [Mass/Vol] 2.9 g/dL Critically low 3.4-5.0 [facility] Comment on above: Performed By: #### H STROPN, TSH, CMP #### [facility] [address] [address] [address] King Moya Albumin/Globulin [Mass ratio] 0.9 {ratio} Normal [facility] Comment on above: Performed By: #### H STROPN, TSH, CMP #### [facility] [address] [address] [address] King Moya ALP [Catalytic activity/Vol] 68 U/L Normal 46-116 [facility] Comment on above: Performed By: #### H STROPN, TSH, CMP #### [facility] [address] [address] [address] King Moya ALT [Catalytic activity/Vol] 12 U/L Critically low 14-59 [facility] Comment on above: Performed By: #### H STROPN, TSH, CMP #### [facility] [address] [address] [address] King Moya Anion gap [Moles/Vol] 8.6 mmol/L Normal [facility] Comment on above: Performed By: #### H STROPN, TSH, CMP #### [facility] [address] [address] [address] King Moya AST [Catalytic activity/Vol] 16 U/L Normal 15-37 [facility] Comment on above: Performed By: #### H STROPN, TSH, CMP #### [facility] [address] [address] [address] King Moya Bilirubin [Mass/Vol] 0.1 mg/dL Critically low 0.2-1.0 [facility] Comment on above: Performed By: #### H STROPN, TSH, CMP #### [facility] [address] [address] [address] King Moya Calcium [Mass/Vol] 8.4 mg/dL Critically low 8.5-10.1 [facility] Comment on above: Performed By: #### H STROPN, TSH, CMP #### [facility] [address] [address] [address] King Moya Chloride [Moles/Vol] 106 mmol/L Normal 98-107 [facility] Comment on above: Performed By: #### H STROPN, TSH, CMP #### [facility] [address] [place] [address] Dr. King Moya CO2 [Moles/Vol] 29.3 mmol/L Normal 21.0-32.0 [facility] Comment on above: Performed By: #### H STROPN, TSH, CMP #### [facility] [address] [place] [address] Dr. King Moya Creatinine [Mass/Vol] 1.19 mg/dL Critically high 0.55-1.02 [facility] Comment on above: Performed By: #### H STROPN, TSH, CMP #### [facility] [address] [place] [address] Dr. King Moya EGFR-AF CROATIAN 53 mL/min/1.73m2 Critically low >=60 [facility] Comment on above: Performed By: #### H STROPN, TSH, CMP #### [facility] [address] [place] [address] Dr. King Moya EGFR-NON AF CROATIAN 43 mL/min/1.73m2 Critically low >=60 [facility] Comment on above: Performed By: #### H STROPN, TSH, CMP #### [facility] [address] [place] [address] Dr. King Moya Globulin (S) [Mass/Vol] 3.1 g/dL Normal [facility] Comment on above: Performed By: #### H STROPN, TSH, CMP #### [facility] [address] [place] [address] Dr. King Moya Glucose [Mass/Vol] 105 mg/dL Normal 74-106 [facility] Comment on above: Performed By: #### H STROPN, TSH, CMP #### [facility] [address] [place] [address] Dr. King Moya Potassium [Moles/Vol] 4.9 mmol/L Normal 3.5-5.1 [facility] Comment on above: Performed By: #### H STROPN, TSH, CMP #### [facility] [address] [place] [address] Dr. King Moya Protein [Mass/Vol] 6.0 g/dL Critically low 6.4-8.[address] [facility] Comment on above: Performed By: #### H WILMA TSH, CMP #### [facility] [address] [address] [address] King Moya Sodium [Moles/Vol] 139 mmol/L Normal 136-145 [facility] Comment on above: Performed By: #### H WILMA, TSH, CMP #### [facility] [address] [place] [address] Dr. King Moya Urea nitrogen [Mass/Vol] 19.0 mg/dL Critically high 7.0-18.0 [facility] Comment on above: Performed By: #### H WILMA TSH, CMP #### [facility] [address] [place] [address] Dr. King Moya Urea nitrogen/Creatinine [Mass ratio] 16.0 mg/mg Normal [facility] Comment on above: Performed By: #### H WILMA TSH, CMP #### [facility] [address] [place] [address] Dr. King Moya PROTIMEon 07-18-2022 INR Coag (PPP) [Relative time] 0.97 {INR} Normal [facility] Comment on above: Performed By: #### P T, PTT #### [facility] [address] [place] [address] Dr. King Moya INR GUIDELINES SEE BELOW Normal [facility] Comment on above: Result Comment: LORRI RED INR: 2.0 - 3.0 CONDITIONS NOT LISTED BELOW 2.5 - 3.5 FOR PROSTHETIC HEART VALVE REPLACEMENT 2.5 - 3.5 RECURRENT THROMBOSIS Performed By: #### P T, PTT #### [facility] [address] [place] [address] Dr. King Moya PT Coag (PPP) [Time] 10.3 s Normal 9.0-11.6 [facility] Comment on above: Performed By: #### P T, PTT #### [facility] [address] [place] [address] Dr. King Moya PTTon 07-18-2022 aPTT Coag (Bld) [Time] 23.2 s Normal 22.3-36.[address] [facility] Comment on above: Performed By: #### P T, PTT #### [facility] [address] [address] [address] King Moya TROPONIN, HIGH SENSITIVITYon 07-18-2022 HSTROP 8.6 pg/mL Normal 4.0-51.3 [facility] Comment on above: Result Comment: CUT- OFF POINTS HAVE BEEN ESTABLISHED BASED ON THE FOURTH UNIVERSAL DEFINITIONS OF MYOCARDIAL INFARCTION. THE UPPER REFERENCE LIMIT (URL) OF TROPONIN, DEFINED THE 99TH PERCENTILE OF cTnI DISTRIBUTION IN A REFERENCE POPULATION, HAS BEEN CONFIRMED THE DECISION THRESHOLD FOR RI DIAGNOSIS. Performed By: #### H WILMA, TSH, CMP #### [facility] [address] [address] [address] King Moya TSHon 07-18-2022 TSH 8.354 uIU/mL Critically high 0.358-3.740 [facility] Comment on above: Performed By: #### H WILMA, TSH, CMP #### [facility] [address] [address] [address] King Moya XR CHEST 1 Von 07-18-2022 XR CHEST 1 V CHEST X-RAY, 1 VIEW HISTORY: Hypotension. COMPARISON: 07/08/2022. FINDINGS: The cardiac silhouette is normal in size. There are aortic calcifications. The lungs are grossly clear. There are no pleural effusions. There is no pneumothorax. IMPRESSION: No evidence of acute cardiopulmonary disease. Electronically authenticated by: DAVIN CLAYTON Date: 2022-07-18 19:20 Normal [facility] CULTURE URINEon 07-11-2022 CULTURE URINE Isolate [...] Trimethoprim/Sulfametho xazole <=20 S F Normal [facility] Comment on above: Performed By: #### H STROPN, TSH, CMP #### [facility] [address] [place] [address] Dr. King Moya ACETONE SERUMon 07-08-2022 ACETONE Negative Normal NEGATIVE [facility] Comment on above: Performed By: #### A CETON #### [facility] [address] [place] [address] Dr. King Moya CBC AUTO DIFFon 07-08-2022 BASO # 0.1 103/ul Normal 0.0-0.1 [facility] Comment on above: Performed By: #### H STROPN, TSH, CMP #### [facility] [address] [place] [address] Dr. King Moya Basophils/100 WBC (Bld) 0.7 % Normal 0.2-2.0 [facility] Comment on above: Performed By: #### H STROPN, TSH, CMP #### [facility] [address] [place] [address] Dr. King Moya EO # 0.1 103/ul Normal 0.0-0.7 [facility] Comment on above: Performed By: #### H STROPN, TSH, CMP #### [facility] [address] [place] [address] Dr. King Moya Eosinophils/100 WBC (Bld) 1.5 % Normal 0.9-7.0 [facility] Comment on above: Performed By: #### H STROPN, TSH, CMP #### [facility] [address] [place] [address] Dr. King Moya Erythrocyte distribution width (RBC) [Ratio] 12.8 % Normal 11.0-15.0 [facility] Comment on above: Performed By: #### H STROPN, TSH, CMP #### [facility] [address] [place] [address] Dr. King Moya Hematocrit (Bld) [Volume fraction] 35.5 % Critically low 36.0-48.0 [facility] Comment on above: Performed By: #### H STROPN, TSH, CMP #### [facility] [address] [place] [address] Dr. King Moya Hemoglobin (Bld) [Mass/Vol] 11.6 g/dL Critically low 12.0-16.0 [facility] Comment on above: Performed By: #### H STROPN, TSH, CMP #### [facility] [address] [place] [address] Dr. King Moya IG # 0.05 10e3/ul Critically high 0.00-0.03 [facility] Comment on above: Performed By: #### H STROPN, TSH, CMP #### [facility] [address] [place] [address] Dr. King Moya IG % 0.6 % Critically high 0.0-0.5 [facility] Comment on above: Performed By: #### H STROPN, TSH, CMP #### [facility] [address] [place] [address] Dr. King Moya LYMPH # 2.8 103/ul Normal 1.2-3.[address] [facility] Comment on above: Performed By: #### H STROPN, TSH, CMP #### [facility] [address] [place] [address] Dr. King Moya Lymphocytes/100 WBC (Bld) 31.8 % Normal 20.5-60.[address] [facility] Comment on above: Performed By: #### H STROPN, TSH, CMP #### [facility] [address] [place] [address] Dr. King Moya MANUAL DIFF REQ NO Normal [facility] Comment on above: Performed By: #### H STROPN, TSH, CMP #### [facility] [address] [place] [address] Dr. King Moya MCH (RBC) [Entitic mass] 31.1 pg Normal 26.7-34.0 [facility] Comment on above: Performed By: #### H STROPN, TSH, CMP #### [facility] [address] [place] [address] Dr. King Moya MCHC (RBC) [Mass/Vol] 32.7 g/dL Normal 29.9-35.2 [facility] Comment on above: Performed By: #### H STROPN, TSH, CMP #### [facility] [address] [place] [address] Dr. King Moya MCV (RBC) [Entitic vol] 95.2 fL Normal 81.0-99.[address] [facility] Comment on above: Performed By: #### H STROPN, TSH, CMP #### [facility] [address] [place] [address] Dr. King Moya MONO # 0.7 103/ul Normal 0.3-0.8 [facility] Comment on above: Performed By: #### H STROPN, TSH, CMP #### [facility] [address] [place] [address] Dr. King Moya Monocytes/100 WBC (Bld) 7.8 % Normal 1.7-12.0 [facility] Comment on above: Performed By: #### H STROPN, TSH, CMP #### [facility] [address] [place] [address] Dr. King Moya NEUT # 5.1 103/ul Normal 1.4-6.5 [facility] Comment on above: Performed By: #### H STROPN, TSH, CMP #### [facility] [address] [place] [address] Dr. King Moya Neutrophils/100 WBC (Bld) 57.6 % Normal 43.0-75.[address] [facility] Comment on above: Performed By: #### H STROPN, TSH, CMP #### [facility] [address] [place] [address] Dr. King Moya Platelet mean volume (Bld) [Entitic vol] 9.1 fL Critically low 9.5-13.5 [facility] Comment on above: Performed By: #### H STROPN, TSH, CMP #### [facility] [address] [place] [address] Dr. King Moya PLT 253 103/ul Normal 150-[address] [facility] Comment on above: Performed By: #### H STROPN, TSH, CMP #### [facility] [address] [address] [address] King Moya RBC 3.73 106/ul Critically low 4.20-5.40 [facility] Comment on above: Performed By: #### H STROPN, TSH, CMP #### [facility] [address] [address] [address] King Moya WBC 8.9 103/ul Normal 4.0-11.[address] [facility] Comment on above: Performed By: #### H STROPN, TSH, CMP #### [facility] [address] [address] [address] STROKE HEAD WOon [...] ABE BOSCH Date: 2022-07-08 19:27 Normal [address] [facility] ER URINE PROFILEon 3 Bilirubin Ql (U) Negative Normal NEGATIVE The [facility] Comment on above: Performed By: #### H STROPN, TSH, CMP #### [facility] [address] [address] [address] King Moya Clarity (U) CLEAR Normal CLEAR The [facility] Comment on above: Performed By: #### H STROPN, TSH, CMP #### [facility] [address] [address] [address] King Moya Color (U) YELLOW Normal YELLOW The [facility] Comment on above: Performed By: #### H STROPN, TSH, CMP #### [facility] [address] [place] [address] Dr. King MELISSA A micrscopic examination will be performed if indicated. Normal The [facility] Comment on above: Performed By: #### H STROPN, TSH, CMP #### [facility] [address] [address] [address] King Moya Glucose Ql (U) Negative Normal NEGATIVE [facility] Comment on above: Performed By: #### H STROPN, TSH, CMP #### [facility] [address] [place] [address] Dr. King Moya Hemoglobin Ql (U) Negative Normal NEGATIVE [facility] Comment on above: Performed By: #### H STROPN, TSH, CMP #### [facility] [address] [place] [address] Dr. King Moya Ketones Ql (U) TRACE Abnormal NEGATIVE [facility] Comment on above: Performed By: #### H STROPN, TSH, CMP #### [facility] [address] [place] [address] Dr. King Moya LEUKOCYTES TRACE Abnormal NEGATIVE [facility] Comment on above: Performed By: #### H STROPN, TSH, CMP #### [facility] [address] [place] [address] Dr. King Moya Nitrite Ql (U) Negative Normal NEGATIVE [facility] Comment on above: Performed By: #### H STROPN, TSH, CMP #### [facility] [address] [place] [address] Dr. King Moya pH (U) 5.0 [pH] Normal 5-9 [facility] Comment on above: Performed By: #### H STROPN, TSH, CMP #### [facility] [address] [place] [address] Dr. King Moya SPEC GRAVITY >=1.030 Abnormal 1.005-<=1.02 5 [facility] Comment on above: Performed By: #### H STROPN, TSH, CMP #### [facility] [address] [place] [address] Dr. King Moya UA PROTEIN TRACE Normal NEGATIVE/ TRACE [facility] Comment on above: Performed By: #### H STROPN, TSH, CMP #### [facility] [address] [address] [address] King Moya UR MICRO IND INDICATED Normal [facility] Comment on above: Performed By: #### H STROPN, TSH, CMP #### [facility] [address] [place] [address] Dr. King Moya Urobilinogen Qn (U) 0.2 {Kannan'U}/dL Normal 0.2 - 1. 0 [facility] Comment on above: Performed By: #### H STROPN, TSH, CMP #### [facility] [address] [place] [address] Dr. King Moay LACTATE/LACTIC ACIDon 2022 Lactate [Moles/Vol] 1.1 mmol/L Normal 0.4-2.0 [facility] Comment on above: Performed By: #### L ACT #### [facility] [address] [place] [address] Dr. King Moya PROF 14(COMP METB)on 023 Albumin [Mass/Vol] 3.5 g/dL Normal 3.4-5.0 [facility] Comment on above: Performed By: #### H STROPN, TSH, CMP #### [facility] [address] [place] [address] Dr. King Moya Albumin/Globulin [Mass ratio] 1.2 {ratio} Normal [facility] Comment on above: Performed By: #### H STROPN, TSH, CMP #### [facility] [address] [place] [address] Dr. King Moya ALP [Catalytic activity/Vol] 58 U/L Normal 46-116 [facility] Comment on above: Performed By: #### H STROPN, TSH, CMP #### [facility] [address] [place] [address] Dr. King Moya ALT [Catalytic activity/Vol] 14 U/L Normal 14-59 [facility] Comment on above: Performed By: #### H STROPN, TSH, CMP #### [facility] [address] [address] [address] King Moya Anion gap [Moles/Vol] 10.7 mmol/L Normal Th e [facility] Comment on above: Performed By: #### H STROPN, TSH, CMP #### [facility] [address] [address] [address] King Moya AST [Catalytic activity/Vol] 11 U/L Critically low 15-37 [facility] Comment on above: Performed By: #### H STROPN, TSH, CMP #### [facility] [address] [address] [address] King Moya Bilirubin [Mass/Vol] 0.2 mg/dL Normal 0.2-1.0 [facility] Comment on above: Performed By: #### H STROPN, TSH, CMP #### [facility] [address] [place] [address] Dr. King Moya Calcium [Mass/Vol] 9.2 mg/dL Normal 8.5-10.1 [facility] Comment on above: Performed By: #### H STROPN, TSH, CMP #### [facility] [address] [place] [address] Dr. King Moya Chloride [Moles/Vol] 105 mmol/L Normal 98-107 [facility] Comment on above: Performed By: #### H STROPN, TSH, CMP #### [facility] [address] [place] [address] Dr. King Moya CO2 [Moles/Vol] 28.7 mmol/L Normal 21.0-32.0 [facility] Comment on above: Performed By: #### H STROPN, TSH, CMP #### [facility] [address] [place] [address] Dr. King Moya Creatinine [Mass/Vol] 1.39 mg/dL Critically high 0.55-1.02 [facility] Comment on above: Performed By: #### H STROPN, TSH, CMP #### [facility] [address] [address] [address] King Moya EGFR-AF CROATIAN 44 mL/min/1.73m2 Critically low >=60 [facility] Comment on above: Performed By: #### H STROPN, TSH, CMP #### [facility] [address] [address] [address] King Moya EGFR-NON AF CROATIAN 36 mL/min/1.73m2 Critically low >=60 [facility] Comment on above: Performed By: #### H STROPN, TSH, CMP #### [facility] [address] [address] [address] King Moya Globulin (S) [Mass/Vol] 2.9 g/dL Normal [facility] Comment on above: Performed By: #### H STROPN, TSH, CMP #### [facility] [address] [address] [address] King Moya Glucose [Mass/Vol] 119 mg/dL Critically high 74-106 [facility] Comment on above: Performed By: #### H STROPN, TSH, CMP #### [facility] [address] [address] [address] King Moya Potassium [Moles/Vol] 4.4 mmol/L Normal 3.5-5.1 [facility] Comment on above: Performed By: #### H STROPN, TSH, CMP #### [facility] [address] [address] [address] King Moya Protein [Mass/Vol] 6.4 g/dL Normal 6.4-8.2 [facility] Comment on above: Performed By: #### H STROPN, TSH, CMP #### [facility] [address] [address] [address] King Moya Sodium [Moles/Vol] 140 mmol/L Normal 136-145 [facility] Comment on above: Performed By: #### H STROPN, TSH, CMP #### [facility] [address] [address] [address] King Moya Urea nitrogen [Mass/Vol] 24.0 mg/dL Critically high 7.0-18.0 [facility] Comment on above: Performed By: #### H WILMA, TSH, CMP #### [facility] [address] [place] [address] Dr. King Moya Urea nitrogen/Creatinine [Mass ratio] 17.3 mg/mg Normal The [facility] Comment on above: Performed By: #### H WILMA, TSH, CMP #### [facility] [address] [place] [address] Dr. King Moya PROTIMEon 07-08-2022 INR Coag (PPP) [Relative time] 0.97 {INR} Normal [facility] Comment on above: Performed By: #### H WILMA TSH, CMP #### [facility] [address] [place] [address] Dr. King Moya INR GUIDELINES SEE BELOW Normal [facility] Comment on above: Result Comment: LORRI RED INR: 2.0 - 3.0 CONDITIONS NOT LISTED BELOW 2.5 - 3.5 FOR PROSTHETIC HEART VALVE REPLACEMENT 2.5 - 3.5 RECURRENT THROMBOSIS Performed By: #### H WILMA TSH, CMP #### [facility] [address] [place] [address] Dr. King Moya PT Coag (PPP) [Time] 10.3 s Normal 9.0-11.6 [facility] Comment on above: Performed By: #### H WILMA TSH, CMP #### [facility] [address] [place] [address] Dr. King Moya PTTon 07-08-2022 aPTT Coag (Bld) [Time] 24.8 s Normal 22.3-36.2 Th [facility] Comment on above: Performed By: #### H WILMA TSH, CMP #### [facility] [address] [place] [address] Dr. King Moya TROPONIN, HIGH SENSITIVITYon 07-08-2022 HSTROP 5.9 pg/mL Normal 4.0-51.3 [facility] Comment on above: Result Comment: CUT- OFF POINTS HAVE BEEN ESTABLISHED BASED ON THE FOURTH UNIVERSAL DEFINITIONS OF MYOCARDIAL INFARCTION. THE UPPER REFERENCE LIMIT (URL) OF TROPONIN, DEFINED THE 99TH PERCENTILE OF cTnI DISTRIBUTION IN A REFERENCE POPULATION, HAS BEEN CONFIRMED THE DECISION THRESHOLD FOR RI DIAGNOSIS. Performed By: #### H STROPN, TSH, CMP #### [facility] [address] [place] [address] Dr. King Moya TSHon 07-08-2022 TSH 6.513 uIU/mL Critically high 0.358-3.740 [facility] Comment on above: Performed By: #### H STROPN, TSH, CMP #### [facility] [address] [place] [address] Dr. King Moya URINE MICROSCOPIC ONLYon BACTERIA TRACE Abnormal NONE SEEN [facility] Comment on above: Performed By: #### H STROPN, TSH, CMP #### [facility] [address] [place] [address] Dr. King Moya Bacteria identified Cx Nom (U) INDICATED Normal [facility] Comment on above: Performed By: #### H STROPN, TSH, CMP #### [facility] [address] [place] [address] Dr. King Moya CAST SEEN Abnormal NONE SEEN [facility] Comment on above: Performed By: #### H STROPN, TSH, CMP #### [facility] [address] [place] [address] Dr. King Moya Crystals LM Nom (Urine sed) NONE SEEN Normal NONE SEEN [facility] Comment on above: Performed By: #### H STROPN, TSH, CMP #### [facility] [address] [place] [address] Dr. King Moya Epithelial cells LM Ql (Urine sed) RARE Normal NONE SEEN /RARE [facility] Comment on above: Performed By: #### H STROPN, TSH, CMP #### [facility] [address] [place] [address] Dr. King Moya HYALINE CAST RARE Normal The [facility] Comment on above: Performed By: #### H STROPN, TSH, CMP #### [facility] [address] [place] [address] Dr. King Moya MUCOUS NONE SEEN Normal NONE SEEN [facility] Comment on above: Performed By: #### H STROPN, TSH, CMP #### [facility] [address] [place], [place] [address] Dr. King Moya RBC 0-2 Normal 0-2 [facility] Comment on above: Performed By: #### H STROPN, TSH, CMP #### [facility] [address] [place], [place] [address] Dr. King Moya WBC 5-10 Abnormal NONE SEEN The [facility] Comment on above: Performed By: #### H STROPN, TSH, CMP #### [facility] [address] [place], [place] [address] Dr. King Moya XR CHEST 1 Von 07-08-2022 XR CHEST 1 V EXAM: XR CHEST 1 V HISTORY: SHORTNESS OF BREATH COMPARISON: None. TECHNIQUE: Single view of the chest FINDINGS: Heart size normal. No focal consolidation, pleural effusion, pulmonary congestion or pneumothorax. IMPRESSION: No acute findings. Electronically authenticated by: CLARE NUNN Date: 2022-07-08 20:02 Normal [address] [facility] CBC with Auto Differentialon 09-23-2021 Absolute Eos # 0.[address] [facility] [facility] Absolute Immature Granulocyte 0.05 [facility] Absolute Lymph # 2.94 [facility] Absolute Hale # 0.90 [facility] Basophils (Bld) [#/Vol] 0.10 10*3/uL [facility] Basophils/100 WBC (Bld) 1 % 0 - 2 % [facility] Eosinophils/100 WBC (Bld) 4 % 1 - 4 % [facility] Hematocrit (Bld) [Volume fraction] 35.5 % Low 36.3 - 47.1 % [facility] Hemoglobin (Bld) [Mass/Vol] 11.1 g/dL Low 11.9 - 15.1 g/dL [facility] Immature granulocytes/100 WBC (Bld) 1 % High 0 [facility] Interpretation and review of laboratory results Abnormal [facility] Lymphocytes/100 WBC (Bld) 28 % 24 - 43 % [facility] MCH (RBC) [Entitic mass] 31.4 pg 25.2 - 33.5 pg [facility] MCHC (RBC) [Mass/Vol] 31.3 g/dL 28.4 - 34.8 g/dL [facility] MCV (RBC) [Entitic vol] 100.3 fL 82.6 - 102.9 fL [facility] Monocytes/100 WBC (Bld) 9 % 3 - 12 % [facility] NRBC Automated 0.0 0.0 per 100 WBC [facility] Platelet distribution width (Bld) [Ratio] 11.9 % 11.8 - 14.4 % [facility] Platelet mean volume (Bld) [Entitic vol] 9.2 fL 8.1 - 13.5 fL [facility] Platelets (Bld) [#/Vol] 325 10*3/uL [facility] RBC (Bld) [#/Vol] 3.54 10*6/uL Low 3.95 - 5.1 1 m/uL [facility] Segmented neutrophils/100 WBC (Bld) 57 % 36 - 65 % [facility] Segs Absolute 6.06 [facility] WBC (Bld) [#/Vol] 10.4 10*3/uL [facility] CBC with Diffon 09-23-2021 Abs. Basophil 0.10 k/uL Normal 0.00-0.20 [facility] Comment on above: Performed By: #### C KOLBY, CP #### [facility] [address] [place] [address] Commercial Relationship Manager: Emerson Hall MD #### LIPR #### [id number] [place] [address] Commercial Relationship Manager: Kyle Cowan MD Abs.Imm.Granulocyte 0.05 k/uL Normal 0.00-0.30 [facility] Comment on above: Performed By: #### C KOLBY, CP #### [facility] [address] [place] [address] Commercial Relationship Manager: Emerson Hall MD #### LIPR #### [id number] [place] [address] Commercial Relationship Manager: Kyle Cowan MD Abs.Neutrophil (Seg) 6.06 k/uL Normal 1.50-8.10 [facility] Comment on above: Performed By: #### C DP, CP #### [facility] [address] [place] [phone] Commercial Relationship Manager: Emerson Hall MD #### LIPR #### [address] [address] Commercial Relationship Manager: Kyle Cowan MD Basophils/100 WBC (Bld) 1 % Normal 0-2 [facility] Comment on above: Performed By: #### C DP, CP #### [address] [place] [phone] Commercial Relationship Manager: Emerson Hall MD #### LIPR #### [address] [address] Commercial Relationship Manager: Kyle Cowan MD Eosinophils (Bld) [#/Vol] 0.37 10*3/uL Normal 0.00-0.44 [facility] Comment on above: Performed By: #### C DP, CP #### [address] [place] [phone] Commercial Relationship Manager: Emerson Hall MD #### LIPR #### [address] [address] Commercial Relationship Manager: Kyle Cowan MD Eosinophils/100 WBC (Bld) 4 % Normal 1-4 [facility] Comment on above: Performed By: #### C DP, CP #### [facility] [address] [place] [address] Dr. [place], [place] [phone] Commercial Relationship Manager: Emerson Hall MD #### LIPR #### [address] [address] Commercial Relationship Manager: Kyle Cowan MD Erythrocyte distribution width (RBC) [Ratio] 11.9 % Normal 11.8-14.4 [facility] Comment on above: Performed By: #### C DP, CP #### [facility] [address] [place] [address] [place], [place] [phone] Commercial Relationship Manager: Emerson Hall MD #### LIPR #### [address] [address] Commercial Relationship Manager: Kyle Cowan MD Hematocrit (Bld) [Volume fraction] 35.5 % Low 36.3-47.1 [facility] Comment on above: Performed By: #### C DP, CP #### [address] [place], [place] [phone] Commercial Relationship Manager: Emerson Hall MD #### LIPR #### [address] [address] Commercial Relationship Manager: Kyle Cowan MD Hemoglobin (Bld) [Mass/Vol] 11.1 g/dL Low 11.9-15.1 [facility] Comment on above: Performed By: #### C DP, CP #### [address] [place], [place] [phone] Commercial Relationship Manager: Emerson Hall MD #### LIPR #### [address] [address] Commercial Relationship Manager: Kyle Cowan MD Immature granulocytes/100 WBC (Bld) 1 % High 0 [facility] Comment on above: Performed By: #### C DP, CP #### [facility] [address] [place] [address] [place], [place] [phone] Commercial Relationship Manager: Emerson Hall MD #### LIPR #### [address] [address] Commercial Relationship Manager: Kyle Cowan MD Lymphocytes (Bld) [#/Vol] 2.94 10*3/uL Normal 1.10-3.70 [facility] Comment on above: Performed By: #### C DP, CP #### [facility] [address] [place] [address] [address]. [place] [place] [phone] ( Commercial Relationship Manager: Emerson Hall MD #### LIPR #### [place] [address] Commercial Relationship Manager: Kyle Cowan MD Lymphocytes/100 WBC (Bld) 28 % Normal 24-43 [facility] Comment on above: Performed By: #### C DP, CP #### [address] [place] [address] Commercial Relationship Manager: Emerson Hall MD #### LIPR #### [place] [address] Commercial Relationship Manager: Kyle Cowan MD MCH (RBC) [Entitic mass] 31.4 pg Normal 25.2-33.5 [facility] Comment on above: Performed By: #### C KOLBY, CP #### [address] [place] [address] Commercial Relationship Manager: Emerson Hall MD #### LIPR #### [place] [address] Commercial Relationship Manager: Kyle Cowan MD MCHC (RBC) [Mass/Vol] 31.3 g/dL Normal 28.4-34.8 [facility] Comment on above: Performed By: #### C KOLBY, CP #### [address] [place] [phone] ( Commercial Relationship Manager: Emerson Hall MD #### LIPR #### [place] [address] Commercial Relationship Manager: Kyle Cowan MD MCV (RBC) [Entitic vol] 100.3 fL Normal 82.6-102.9 [facility] Comment on above: Performed By: #### C DP, CP #### [facility] [address] [place], [place] [phone] Commercial Relationship Manager: Emerson Hall MD #### LIPR #### [address] [phone] Commercial Relationship Manager: Kyle Cowan MD Monocytes (Bld) [#/Vol] 0.90 10*3/uL Normal 0.10-1.20 [facility] Comment on above: Performed By: #### C DP, CP #### [address] [place] [phone] ( Commercial Relationship Manager: Emerson Hall MD #### LIPR #### [place] [address] Commercial Relationship Manager: Kyle Cowan MD Monocytes/100 WBC (Bld) 9 % Normal 3-12 [facility] Comment on above: Performed By: #### C DP, CP #### [address] [place] [phone] ( Commercial Relationship Manager: Emerson Hall MD #### LIPR #### [address] [address] Commercial Relationship Manager: Kyle Cowan MD Neutrophil (Seg) 57 % Normal 36-65 [facility] Comment on above: Performed By: #### C DP, CP #### [address] [place] [phone] Commercial Relationship Manager: Emerson Hall MD #### LIPR #### [address] [address] Commercial Relationship Manager: Kyle Cowan MD NRBC Automated 0.0 per 100 WBC Normal 0.0 [facility] Comment on above: Performed By: #### C DP, CP #### [facility] [address] [place], [place] [phone] Commercial Relationship Manager: Emerson Hall MD #### LIPR #### [address] [place], [place] [phone] Commercial Relationship Manager: Kyle Cowan MD Platelet mean volume (Bld) [Entitic vol] 9.2 fL Normal 8.1-13.5 [facility] Comment on above: Performed By: #### C DP, CP #### [facility] [address] [place], [place] [phone] Commercial Relationship Manager: Emerson Hall MD #### LIPR #### [address] [phone] Commercial Relationship Manager: Kyle Cowan MD Platelets (Bld) [#/Vol] 325 10*3/uL Normal 138-453 [facility] Comment on above: Performed By: #### C DP, CP #### [facility] [address] [place], [place] [phone] Commercial Relationship Manager: Emerson Hall MD #### LIPR #### [address] [address] Commercial Relationship Manager: Kyle Cowan MD RBC (Bld) [#/Vol] 3.54 10*6/uL Low 3.95-5.11 [facility] Comment on above: Performed By: #### C DP, CP #### [facility] [address] [place], [place] [phone] Commercial Relationship Manager: Emerson Hall MD #### LIPR #### [address] [place] [address] Commercial Relationship Manager: Kyle Cowan MD WBC (Bld) [#/Vol] 10.4 10*3/uL Normal 3.5-11.3 [facility] Comment on above: Performed By: #### C DP, CP #### [facility] [address] [place] [address] Commercial Relationship Manager: Emerson Hall MD #### STEPHANIA #### [facility] [address] [place], [place] [id number] Commercial Relationship Manager: Kyle Cowan MD Comp Metabolic Profon 2021 (cont.) Normal [facility] Comment on above: Result Comment: Aver age GFR for 70 or more years old: 75 mL/min/1.73sq m Chronic Kidney Disease: <60 mL/min/1.73sq m Kidney failure: <15 mL/min/1.73sq m eGFR calculated using average adult body mass. Additional eGFR calculator available at: http://www.[employer]/multiple_crcl_2011.htm Performed By: #### B C #### [facility] [address] [place] [address] [place] [address] Commercial Relationship Manager: Emerson Hall MD Albumin [Mass/Vol] 3.8 g/dL Normal 3.5-5.2 [facility] Comment on above: Performed By: #### B C #### [address] [place] [address] Commercial Relationship Manager: Emerson Hall MD Albumin/Glob Ratio 1.4 Normal 1.0-2.5 [facility] Comment on above: Performed By: #### B C #### [facility] [address] [place] [address] Commercial Relationship Manager: Emerson Hall MD Alkaline Phos 69 U/L Normal 35-104 [facility] Comment on above: Performed By: #### B C #### [facility] [address] [place] [address] Commercial Relationship Manager: Emerson Hall MD ALT [Catalytic activity/Vol] 6 U/L Normal 5-33 [facility] Comment on above: Performed By: #### B C #### [facility] [address] [place], [place] [phone] Commercial Relationship Manager: Emerson Hall MD Anion gap [Moles/Vol] 6 mmol/L Low 9-17 [facility] Comment on above: Performed By: #### B C #### [facility] [address] [place], [place] [phone] Commercial Relationship Manager: Emerson Hall MD AST [Catalytic activity/Vol] 12 U/L Normal <32 [facility] Comment on above: Performed By: #### B C #### [facility] [address] [place], [place] [phone] Commercial Relationship Manager: Emerson Hall MD Bilirubin [Mass/Vol] 0.27 mg/dL Low 0.3-1.2 [facility] Comment on above: Performed By: #### B C #### [facility] [address] [place], [place] [phone] Commercial Relationship Manager: Emerson Hall MD BUN/CRE Ratio 26 High 9-20 [facility] Comment on above: Performed By: #### B C #### [facility] [address] [place], [place] [phone] Commercial Relationship Manager: Emerson Hall MD Calcium [Mass/Vol] 9.2 mg/dL Normal 8.6-10.4 [facility] Comment on above: Performed By: #### B C #### [facility] [address] [place], [place] [phone] Commercial Relationship Manager: Emerson Hall MD Chloride [Moles/Vol] 106 mmol/L Normal 98-107 [facility] Comment on above: Performed By: #### B C #### [facility] [address] [place], [place] [phone] Commercial Relationship Manager: Emerson Hall MD CO2 [Moles/Vol] 29 mmol/L Normal 20-31 [facility] Comment on above: Performed By: #### B C #### [facility] [address] [place], [place] [phone] Commercial Relationship Manager: Emerson Hall MD Creatinine [Mass/Vol] 0.73 mg/dL Normal 0.50-0.90 [facility] Comment on above: Performed By: #### B C #### [facility] [address] [place], [place] [phone] Commercial Relationship Manager: Emerson aHll MD GFR, Amer >60 Normal >60 [facility] Comment on above: Performed By: #### B C #### [facility] [address] [place], [place] [phone] Commercial Relationship Manager: Emerson Hall MD GFR,non Amer >60 Normal >60 [facility] Comment on above: Performed By: #### B C #### [facility] [address] [place], [place] [phone] Commercial Relationship Manager: Emerson Hall MD Glucose [Mass/Vol] 92 mg/dL Normal 70-99 [facility] Comment on above: Performed By: #### B C #### [address] [place], [place] [phone] Commercial Relationship Manager: Emerson Hall MD Potassium [Moles/Vol] 5.1 mmol/L Normal 3.7-5.3 [facility] Comment on above: Performed By: #### B C #### [facility] [address] [place] [address] Dr. [place], [place] [phone] Commercial Relationship Manager: Emerson Hall MD Protein [Mass/Vol] 6.5 g/dL Normal 6.4-8.3 [facility] Comment on above: Performed By: #### B C #### [facility] [address] [place] [address] Dr[address] [place], [place] [phone] Commercial Relationship Manager: Emerson Hall MD Sodium [Moles/Vol] 141 mmol/L Normal 135-144 [facility] Comment on above: Performed By: #### B C #### [facility] [address] [place] [address] Commercial Relationship Manager: Emerson Hall MD Staging: Normal [facility] Comment on above: Result Comment: Stag e 1: Some kidney damage normal GFR Stage 2: Mild kidney damage GFR 60-89 Stage 3: Moderate kidney damage GFR 30-59 Stage 4: Severe kidney damage GFR 15-29 Stage 5: Severe kidney damage GFR <15 ESRD - chronic treatment by dialysis or transplant Performed By: #### B C #### [facility] [address] [place] [address] Commercial Relationship Manager: Emerson Hall MD Urea nitrogen [Mass/Vol] 19 mg/dL Normal 8-23 [facility] Comment on above: Performed By: #### B C #### [facility] [address] [place] [address] Commercial Relationship Manager: Emerson Hall MD [facility] Metabolic [facility] 09-23-2021 Albumin [Mass/Vol] 3.8 g/dL 3.5 - 5.2 g/dL [facility] Albumin/Globulin [Mass ratio] 1.4 {ratio} [facility] ALP (Bld) [Catalytic activity/Vol] 69 U/L 35 - 104 U/L [facility] ALT [Catalytic activity/Vol] 6 U/L 5 - 33 U/L [facility] Anion gap [Moles/Vol] 6 mmol/L Low 9 - 17 mmol/L [facility] AST [Catalytic activity/Vol] 12 U/L <32 [facility] Bilirubin [Mass/Vol] 0.27 mg/dL Low 0.3 - 1 .2 mg/dL [facility] Calcium [Mass/Vol] 9.2 mg/dL 8.6 - 10. 4 mg/dL [facility] Chloride [Moles/Vol] 106 mmol/L 98 - 10 7 mmol/L [facility] CO2 [Moles/Vol] 29 mmol/L 20 - 31 mmol/L [facility] Creatinine [Mass/Vol] 0.73 mg/dL 0.50 - 0.90 mg/dL [facility] Free PSA/Total PSA [Mass fraction] 6.5 g/dL 6.4 - 8.3 g/dL [facility] GFR >60 >60 mL/min [facility] GFR Non- >60 >60 mL/min [facility] Glucose [Mass/Vol] 92 mg/dL 70 - 99 mg/dL [facility] Interpretation and review of laboratory results Abnormal [facility] Potassium [Moles/Vol] 5.1 mmol/L 3.7 - 5.3 mmol/L [facility] Sodium [Moles/Vol] 141 mmol/L 135 - 144 mmol/L [facility] Urea nitrogen (BldV) [Mass/Vol] 19 mg/dL 8 - 23 mg/dL [facility] Urea nitrogen/Creatinine (Bld) [Mass ratio] 26 High [facility] Laboratory - Chemistry and C hemistry - challengeon 09-23-2021 GFR/1.73 sq M.predicted MDRD (S/P/Bld) [Vol rate/Area] [facility] Comment on above: Average GFR for 70 o r more years old: 75 mL/min/1.73sq m Chronic Kidney Disease: <60 mL/min/1.73sq m Kidney failure: <15 mL/min/1.73sq m eGFR calculated using average adult body mass. Additional eGFR calculator available at: http://www.[employer]/multiple_crcl_2012.htm Stage 1: Some kidney damage normal GFR Stage 2: Mild kidney damage GFR 60-89 Stage 3: Moderate kidney damage GFR 30-59 Stage 4: Severe kidney damage GFR 15-29 Stage 5: Severe kidney damage GFR <15 ESRD - chronic treatment by dialysis or transplant Lipid Panelon 09-23-2021 Cholesterol [Mass/Vol] 150 mg/dL <200 [facility] Comment on above: Cholesterol Guidelines: <200 Desirable 200-240 Borderline >240 Undesirable Cholesterol in HDL [Mass/Vol] 48 mg/dL >40 [facility] Comment on above: HDL Guidelines: <40 Undesirable 40-59 Borderline >59 Desirable Cholesterol in LDL [Mass/Vol] 83 mg/dL 0 - 130 mg/dL [facility] Comment on above: LDL Guidelines: <100 Desirable 100-129 Near to/above Desirable 130-159 Borderline >159 Undesirable Direct (measured) LDL and calculated LDL are not interchangeable tests. Cholesterol.total/Chol esterol in HDL [Mass ratio] 3.1 {ratio} <5 [facility] Triglyceride [Mass/Vol] 97 mg/dL <150 [facility] Comment on above: Triglyceride Guidelines: <150 Desirable 150-199 Borderline 200-499 High >499 Very high Based on AHA Guidelines for fasting triglyceride, January 2012. [facility] Lipid Profileon 09-23-2021 Cholesterol [Mass/Vol] 150 mg/dL Normal <200 [facility] Comment on above: Result Comment: Cholesterol Guidelines: <200 Desirable 200-240 Borderline >240 Undesirable Performed By: #### B C #### [facility] [address] [place] [address] Commercial Relationship Manager: Emerson Hall MD Cholesterol in HDL [Mass/Vol] 48 mg/dL Normal >40 [facility] Comment on above: Result Comment: HDL Guidelines: <40 Undesirable 40-59 Borderline >59 Desirable Performed By: #### B C #### [facility] [address] [place] [address] Commercial Relationship Manager: Emerson Hall MD Cholesterol in LDL [Mass/Vol] 83 mg/dL Normal 0-130 [facility] Comment on above: Result Comment: LDL Guidelines: <100 Desirable 100-129 Near to/above Desirable 130-159 Borderline >159 Undesirable Direct (measured) LDL and calculated LDL are not interchangeable tests. Performed By: #### B C #### [facility] [address] [place] [address] Commercial Relationship Manager: Emerson Hall MD Cholesterol.total/Chol esterol in HDL [Mass ratio] 3.1 {ratio} Normal <5 [facility] Comment on above: Performed By: #### B C #### [facility] [address] [place] [address] Commercial Relationship Manager: Emerson Hall MD Triglyceride [Mass/Vol] 97 mg/dL Normal <150 [facility] Comment on above: Result Comment: Triglyceride Guidelines: <150 Desirable 150-199 Borderline 200-499 High >499 Very high Based on AHA Guidelines for fasting triglyceride, January 2012. Performed By: #### B C #### [facility] [address] [place] [address] Commercial Relationship Manager: Emerson Hall MD Lipid Profileon 04-29-2021 Cholesterol [Mass/Vol] 162 mg/dL Normal <200 [facility] Comment on above: Result Comment: Cholesterol Guidelines: <200 Desirable 200-240 Borderline >240 Undesirable Performed By: #### C DP, CP #### [address] [place] [address] Commercial Relationship Manager: Emerson Hall MD #### LIPR #### [place] [phone] [place], [place] [phone] Commercial Relationship Manager: Kyle Cowan MD Cholesterol in HDL [Mass/Vol] 58 mg/dL Normal >40 [facility] Comment on above: Result Comment: HDL Guidelines: <40 Undesirable 40-59 Borderline >59 Desirable Performed By: #### C DP, CP #### [address] [place] [address] Commercial Relationship Manager: Emerson Hall MD #### LIPR #### [place] [phone] [place], [place] [phone] Commercial Relationship Manager: Kyle Cowan MD Cholesterol in LDL [Mass/Vol] 86 mg/dL Normal 0-130 [facility] Comment on above: Result Comment: LDL Guidelines: <100 Desirable 100-129 Near to/above Desirable 130-159 Borderline >159 Undesirable Direct (measured) LDL and calculated LDL are not interchangeable tests. Performed By: #### C DP, CP #### [address] [place] [phone] Commercial Relationship Manager: Emerson Hall MD #### LIPR #### [place] [phone] [place], [place] [phone] Commercial Relationship Manager: Kyle Cowan MD Cholesterol.total/Chol esterol in HDL [Mass ratio] 2.8 {ratio} Normal <5 [facility] Comment on above: Performed By: #### C DP, CP #### [facility] [address] [place] [address] [place] [phone] Commercial Relationship Manager: Emerson Hall MD #### LIPR #### [place] [phone] Commercial Relationship Manager: Kyle Cowan MD Triglyceride [Mass/Vol] 88 mg/dL Normal <150 [facility] Comment on above: Result Comment: Triglyceride Guidelines: <150 Desirable 150-199 Borderline 200-499 High >499 Very high Based on AHA Guidelines for fasting triglyceride, January 2012. Performed By: #### C DP, CP #### [facility] [address] [place] [address] [place] [phone] Commercial Relationship Manager: Emerson Hall MD #### LIPR #### [place] [address] Commercial Relationship Manager: Kyle Cowan MD CBC with Diffon 04-28-2021 Abs. Basophil 0.06 k/uL Normal 0.00-0.20 [facility] Comment on above: Performed By: #### C DP, CP #### [facility] [address] [place] [address] [place] [address] Commercial Relationship Manager: Emerson Hall MD #### LIPR #### [address] [phone] Commercial Relationship Manager: Klye Cowan MD Abs.Imm.Granulocyte <0.03 Normal 0.00-0.30 [facility] Comment on above: Performed By: #### C DP, CP #### [address] [place] [phone] Commercial Relationship Manager: Emerson Hall MD #### LIPR #### [address] [phone] Commercial Relationship Manager: Kyle Cowan MD Abs.Neutrophil (Seg) 5.78 k/uL Normal 1.50-8.10 [facility] Comment on above: Performed By: #### C DP, CP #### [address] [place] [phone] Commercial Relationship Manager: Emerson Hall MD #### LIPR #### [place] [phone] Commercial Relationship Manager: Kyle Cowan MD Basophils/100 WBC (Bld) 1 % Normal 0-2 [facility] Comment on above: Performed By: #### C DP, CP #### [address] [place] [phone] Commercial Relationship Manager: Emerson Hall MD #### LIPR #### [place] [address] Commercial Relationship Manager: Kyle Cowan MD Eosinophils (Bld) [#/Vol] 0.19 10*3/uL Normal 0.00-0.44 [facility] Comment on above: Performed By: #### C DP, CP #### [address] [place] [phone] Commercial Relationship Manager: Emerson Hall MD #### LIPR #### [place] [address] Commercial Relationship Manager: Kyle Cowan MD Eosinophils/100 WBC (Bld) 2 % Normal 1-4 [facility] Comment on above: Performed By: #### C DP, CP #### [address] [place] [address] Commercial Relationship Manager: Emerson Hall MD #### LIPR #### [place] [phone] [place], [place] [phone] Commercial Relationship Manager: Kyle Cowan MD Erythrocyte distribution width (RBC) [Ratio] 12.3 % Normal 11.8-14.4 [facility] Comment on above: Performed By: #### C DP, CP #### [address] [place] [phone] Commercial Relationship Manager: Emerson Hall MD #### LIPR #### [address] [phone] Commercial Relationship Manager: Kyle Cowan MD Hematocrit (Bld) [Volume fraction] 37.6 % Normal 36.3-47.1 [facility] Comment on above: Performed By: #### C DP, CP #### [address] [place] [phone] Commercial Relationship Manager: Emerson Hall MD #### LIPR #### [address] [phone] Commercial Relationship Manager: Kyle Cowan MD Hemoglobin (Bld) [Mass/Vol] 12.1 g/dL Normal 11.9-15.1 [facility] Comment on above: Performed By: #### C DP, CP #### [address] [place] [phone] Commercial Relationship Manager: Emerson Hall MD #### LIPR #### [address] [phone] Commercial Relationship Manager: Kyle Cowan MD Immature granulocytes/100 WBC (Bld) 0 % Normal 0 [facility] Comment on above: Performed By: #### C DP, CP #### [address] [place] [address] Commercial Relationship Manager: Emerson Hall MD #### LIPR #### [address] [phone] Commercial Relationship Manager: Kyle Cowan MD Lymphocytes (Bld) [#/Vol] 3.12 10*3/uL Normal 1.10-3.70 [facility] Comment on above: Performed By: #### C DP, CP #### [facility] [address] [place] [address] [place] [address] Commercial Relationship Manager: Emerson Hall MD #### LIPR #### [address] [phone] Commercial Relationship Manager: Kyle Cowan MD Lymphocytes/100 WBC (Bld) 32 % Normal 24-43 [facility] Comment on above: Performed By: #### C DP, CP #### [address] [place] [address] Commercial Relationship Manager: Emerson Hall MD #### LIPR #### [address] [address] Commercial Relationship Manager: Kyle Cowan MD MCH (RBC) [Entitic mass] 31.6 pg Normal 25.2-33.5 [facility] Comment on above: Performed By: #### C DP, CP #### [address] [place] [phone] Commercial Relationship Manager: Emerson Hall MD #### LIPR #### [address] [address] Commercial Relationship Manager: Kyle Cowan MD MCHC (RBC) [Mass/Vol] 32.2 g/dL Normal 28.4-34.8 [facility] Comment on above: Performed By: #### C DP, CP #### [address] [place] [phone] Commercial Relationship Manager: Emerson Hall MD #### LIPR #### [address] [place] [address] Commercial Relationship Manager: Kyle Cowan MD MCV (RBC) [Entitic vol] 98.2 fL Normal 82.6-102.9 [facility] Comment on above: Performed By: #### C DP, CP #### [facility] [address] [place] [address] [place], [place] [phone] Commercial Relationship Manager: Emerson Hall MD #### LIPR #### [address] [address] Commercial Relationship Manager: Kyle Cowan MD Monocytes (Bld) [#/Vol] 0.69 10*3/uL Normal 0.10-1.20 [facility] Comment on above: Performed By: #### C DP, CP #### [address] [place] [phone] Commercial Relationship Manager: Emerson Hall MD #### LIPR #### [address] [address] Commercial Relationship Manager: Kyle Cowan MD Monocytes/100 WBC (Bld) 7 % Normal 3-12 [facility] Comment on above: Performed By: #### C DP, CP #### [address] [place], [place] [phone] Commercial Relationship Manager: Emerson Hall MD #### LIPR #### [address] [address] Commercial Relationship Manager: Kyle Cowan MD Neutrophil (Seg) 58 % Normal 36-65 [facility] Comment on above: Performed By: #### C DP, CP #### [address] [place] [address] Commercial Relationship Manager: Emerson Hall MD #### LIPR #### [address] [address] Commercial Relationship Manager: Kyle Cowan MD NRBC Automated 0.0 per 100 WBC Normal 0.0 [facility] Comment on above: Performed By: #### C DP, CP #### [facility] [address] [place] [address] Commercial Relationship Manager: Emerson Hall MD #### LIPR #### [address] [phone] Commercial Relationship Manager: Kyle Cowan MD Platelet mean volume (Bld) [Entitic vol] 9.8 fL Normal 8.1-13.5 [facility] Comment on above: Performed By: #### C DP, CP #### [address] [place] [address] Commercial Relationship Manager: Emerson Hall MD #### LIPR #### [place] [phone] Commercial Relationship Manager: Kyle Cowan MD Platelets (Bld) [#/Vol] 299 10*3/uL Normal 138-453 [facility] Comment on above: Performed By: #### C DP, CP #### [address] [place] [address] Commercial Relationship Manager: Emerson Hall MD #### LIPR #### [place] [address] Commercial Relationship Manager: Kyle Cowan MD RBC (Bld) [#/Vol] 3.83 10*6/uL Low 3.95-5.11 [facility] Comment on above: Performed By: #### C DP, CP #### [address] [place] [address] Commercial Relationship Manager: Emerson Hall MD #### LIPR #### [address] [phone] Commercial Relationship Manager: Kyle Cowan MD WBC (Bld) [#/Vol] 9.9 10*3/uL Normal 3.5-11.3 [facility] Comment on above: Performed By: #### C DP, CP #### [facility] [address] [place] [address] [place] [address] Commercial Relationship Manager: Emerson Hall MD #### LIPR #### [address] [address] Commercial Relationship Manager: Kyle Cowan MD Auto Diff Performed NOT REPORTED Normal [facility] Comment on above: Performed By: #### C DP, CP #### [address] [place] [address] Commercial Relationship Manager: Emerson Hall MD #### LIPR #### [address] [address] Commercial Relationship Manager: Kyle Cowan MD Platelet Comment NOT REPORTED Normal [facility] Comment on above: Performed By: #### C DP, CP #### [address] [place] [address] Commercial Relationship Manager: Emerson Hall MD #### LIPR #### [address] [address] Commercial Relationship Manager: Kyle Cowan MD RBC morphology finding Nom (Bld) NOT REPORTED Normal [facility] Comment on above: Performed By: #### C DP, CP #### [address] [place] [address] Commercial Relationship Manager: Emerson Hall MD #### LIPR #### [address] [address] Commercial Relationship Manager: Kyle Cowan MD WBC Morphology NOT REPORTED Normal [facility] Comment on above: Performed By: #### C DP, CP #### [address] [place] [address] Commercial Relationship Manager: Emerson Hall MD #### LIPR #### [place] [phone] [place] [address] Commercial Relationship Manager: Kyle Cowan MD Comp Metabolic Profon 2021 (cont.) Normal [facility] Comment on above: Result Comment: Aver age GFR for 70 or more years old: 75 mL/min/1.73sq m Chronic Kidney Disease: <60 mL/min/1.73sq m Kidney failure: <15 mL/min/1.73sq m eGFR calculated using average adult body mass. Additional eGFR calculator available at: http://www.[employer]/multiple_crcl_2011.htm Performed By: #### C KOLBY, CP #### [address] [place] [address] Commercial Relationship Manager: Emerson Hall MD #### LIPR #### [address] [address] Commercial Relationship Manager: Kyle Cowan MD Albumin [Mass/Vol] 4.0 g/dL Normal 3.5-5.2 [facility] Comment on above: Performed By: #### C DP, CP #### [address] [place] [address] Commercial Relationship Manager: Emerson Hall MD #### LIPR #### [address] [address] Commercial Relationship Manager: Kyle Cowan MD Albumin/Glob Ratio 1.5 Normal 1.0-2.5 [facility] Comment on above: Performed By: #### C DP, CP #### [facility] [address] [place] [address] [place] [address] Commercial Relationship Manager: Emerson Hall MD #### LIPR #### [address] [address] Commercial Relationship Manager: Kyle Cowan MD Alkaline Phos 72 U/L Normal 35-104 [facility] Comment on above: Performed By: #### C DP, CP #### [facility] [address] [place], [place] [phone] Commercial Relationship Manager: Emerson Hall MD #### LIPR #### [address] [address] Commercial Relationship Manager: Kyle Cowan MD ALT [Catalytic activity/Vol] 10 U/L Normal 5-33 [facility] Comment on above: Performed By: #### C DP, CP #### [facility] [address] [place], [place] [phone] Commercial Relationship Manager: Emerson Hall MD #### LIPR #### [address] [address] Commercial Relationship Manager: Kyle Cowan MD Anion gap [Moles/Vol] 11 mmol/L Normal 9-17 [facility] Comment on above: Performed By: #### C DP, CP #### [facility] [address] [place], [place] [phone] Commercial Relationship Manager: Emerson Hall MD #### LIPR #### [address] [address] Commercial Relationship Manager: Kyle Cowan MD AST [Catalytic activity/Vol] 17 U/L Normal <32 [facility] Comment on above: Performed By: #### C DP, CP #### [facility] [address] [place] [address] Commercial Relationship Manager: Emerson Hall MD #### LIPR #### [address] [address] Commercial Relationship Manager: Kyle Cowan MD Bilirubin [Mass/Vol] 0.25 mg/dL Low 0.3-1.2 [facility] Comment on above: Performed By: #### C DP, CP #### [facility] [address] [place], [place] [phone] Commercial Relationship Manager: Emerson Hall MD #### LIPR #### [address] [place] [address] Commercial Relationship Manager: Kyle Cowan MD BUN/CRE Ratio 37 High 9-20 [facility] Comment on above: Performed By: #### C DP, CP #### [facility] [address] [place], [place] [phone] Commercial Relationship Manager: Emerson Hall MD #### LIPR #### [address] [address] Commercial Relationship Manager: Kyle Cowan MD Calcium [Mass/Vol] 9.4 mg/dL Normal 8.6-10.4 [facility] Comment on above: Performed By: #### C DP, CP #### [facility] [address] [place] [address] Dr[address] [place], [place] [address]761983 Commercial Relationship Manager: Emerson Hall MD #### LIPR #### [address] [address] Commercial Relationship Manager: Kyle Cowan MD Chloride [Moles/Vol] 105 mmol/L Normal 98-107 [facility] Comment on above: Performed By: #### C DP, CP #### [facility] [address] [place] [address] Dr[address] [place], [place] [phone] Commercial Relationship Manager: Emerson Hall MD #### LIPR #### [address] [address] Commercial Relationship Manager: Kyle Cowan MD CO2 [Moles/Vol] 23 mmol/L Normal 20-31 [facility] Comment on above: Performed By: #### C DP, CP #### [facility] [address] [place] [address] Dr[address] [place], [place] [phone] Commercial Relationship Manager: Emerson Hall MD #### LIPR #### [address] [address] Commercial Relationship Manager: Kyle Cowan MD Creatinine [Mass/Vol] 0.51 mg/dL Normal 0.50-0.90 [facility] Comment on above: Performed By: #### C DP, CP #### [facility] [address] [place], [place] 9507983 Commercial Relationship Manager: Emerson Hall MD #### LIPR #### [address] [address] Commercial Relationship Manager: Kyle Cowan MD GFR, Amer >60 Normal >60 [facility] Comment on above: Performed By: #### C DP, CP #### [facility] [address] [place] [address] Dr[address] [place], [place] [phone] Commercial Relationship Manager: Emerson Hall MD #### LIPR #### [address] [address] Commercial Relationship Manager: Kyle Cowan MD GFR,non Amer >60 Normal >60 [facility] Comment on above: Performed By: #### C DP, CP #### [address] [place] [address] Commercial Relationship Manager: Emerson Hall MD #### LIPR #### [address] [address] Commercial Relationship Manager: Kyle Cowan MD Glucose [Mass/Vol] 97 mg/dL Normal 70-99 [facility] Comment on above: Performed By: #### C DP, CP #### [facility] [address] [place] [address] [place] [address] Commercial Relationship Manager: Emerson Hall MD #### LIPR #### [address] [address] Commercial Relationship Manager: Kyle Cowan MD Potassium [Moles/Vol] 4.7 mmol/L Normal 3.7-5.3 [facility] Comment on above: Performed By: #### C DP, CP #### [facility] [address] [place], [place] [phone] Commercial Relationship Manager: Emerson Hall MD #### LIPR #### [address] [phone] Commercial Relationship Manager: Kyle Cowan MD Protein [Mass/Vol] 6.6 g/dL Normal 6.4-8.3 [facility] Comment on above: Performed By: #### C DP, CP #### [address] [place], [place] [phone] Commercial Relationship Manager: Emerson Hall MD #### LIPR #### [address] [phone] Commercial Relationship Manager: Kyle Cowan MD Sodium [Moles/Vol] 139 mmol/L Normal 135-144 [facility] Comment on above: Performed By: #### C KOLBY, CP #### [address] [place], [place] [phone] Commercial Relationship Manager: Emerson Hall MD #### LIPR #### [address] [phone] Commercial Relationship Manager: Kyle Cowan MD Staging: Normal [facility] Comment on above: Result Comment: Stag e 1: Some kidney damage normal GFR Stage 2: Mild kidney damage GFR 60-89 Stage 3: Moderate kidney damage GFR 30-59 Stage 4: Severe kidney damage GFR 15-29 Stage 5: Severe kidney damage GFR <15 ESRD - chronic treatment by dialysis or transplant Performed By: #### C DP, CP #### [address] [place], [place] [phone] Commercial Relationship Manager: Emerson Hall MD #### LIPR #### [address] [phone] Commercial Relationship Manager: Kyle Cowan MD Urea nitrogen [Mass/Vol] 19 mg/dL Normal 8-23 [facility] Comment on above: Performed By: #### C DP, CP #### [facility] [address] [place] [address] Commercial Relationship Manager: Emerson Hall MD #### LIPR #### [facility] [address] [place], [place] [phone] Commercial Relationship Manager: Kyle Cowan MD Lipid Profileon 04-28-2021 Cholesterol,VLDL NOT REPORTED Normal 1-30 [facility] Comment on above: Performed By: #### C DP, CP #### [address] [place] [address] Commercial Relationship Manager: Emerson Hall MD #### LIPR #### [facility] [address] [place], [place] [phone] Commercial Relationship Manager: Kyle Cowan MD Cult,Bloodon 10-25-2020 Cult,Blood Specimen Description .BLOOD Special Requests R AC 14ML Culture NO GROWTH 6 DAYS Report Status FINAL 10/25/2020 [facility] Comment on above: Performed By: #### B C #### [address] [place] [address] Commercial Relationship Manager: Emerson Hall MD Cult,Blood Specimen Description .BLOOD Special Requests L HAND 2ML Culture NO GROWTH 6 DAYS Report Status FINAL 10/25/2020 [facility] Comment on above: Performed By: #### B C #### [address] [place] [address] Commercial Relationship Manager: Emerson Hall MD CBCon 10-20-2020 Erythrocyte distribution width (RBC) [Ratio] 12.3 % Normal 11.8-14.4 [facility] Comment on above: Performed By: #### B C #### [address] [place] [phone] Commercial Relationship Manager: Emerson Hall MD Hematocrit (Bld) [Volume fraction] 34.0 % Low 36.3-47.1 [facility] Comment on above: Performed By: #### B C #### [facility] [address] [place] [address] Dr. [place], [place] 1985183 Commercial Relationship Manager: Emerson Hall MD Hemoglobin (Bld) [Mass/Vol] 11.3 g/dL Low 11.9-15.1 [facility] Comment on above: Performed By: #### B C #### [address] [place], [facility]83 Commercial Relationship Manager: Emerson Hall MD MCH (RBC) [Entitic mass] 31.5 pg Normal 25.2-33.5 [facility] Comment on above: Performed By: #### B C #### [address] [place], [facility]83 Commercial Relationship Manager: Emerson Hall MD MCHC (RBC) [Mass/Vol] 33.2 g/dL Normal 28.4-34.8 [facility] Comment on above: Performed By: #### B C #### [address] [place], [place] [phone] Commercial Relationship Manager: Emerson Hall MD MCV (RBC) [Entitic vol] 94.7 fL Normal 82.6-102.9 [facility] Comment on above: Performed By: #### B C #### [facility] [address] [place] [address] [place] [address] Commercial Relationship Manager: Emerson Hall MD NRBC Automated 0.0 per 100 WBC Normal 0.0 [facility] Comment on above: Performed By: #### B C #### [facility] [address] [place] [address] Dr[address] [place], [place] [phone] Commercial Relationship Manager: Emerson Hall MD Platelet mean volume (Bld) [Entitic vol] 8.9 fL Normal 8.1-13.5 [facility] Comment on above: Performed By: #### B C #### [facility] [address] [place] [address] Commercial Relationship Manager: Emerson Hall MD Platelets (Bld) [#/Vol] 191 10*3/uL Normal 138-453 [facility] Comment on above: Performed By: #### B C #### [facility] [address] [place] [address] Commercial Relationship Manager: Emerson Hall MD RBC (Bld) [#/Vol] 3.59 10*6/uL Low 3.95-5.11 [facility] Comment on above: Performed By: #### B C #### [facility] [address] [place] [address] Commercial Relationship Manager: Emerson Hall MD WBC (Bld) [#/Vol] 8.5 10*3/uL Normal 3.5-11.3 [facility] Comment on above: Performed By: #### B C #### [facility] [address] [place] [address] Commercial Relationship Manager: Emerson Hall MD CBCOrdered By: Casandra Cerda on 10-20-2020 Hematocrit (Bld) [Volume fraction] 34.0 % Low 36.3 - 47.1 % [facility] Phone: Hemoglobin.gastrointes tinal spec 1 Ql (Stl) 11.3 g/dL Low 11.9 - 15.1 g/dL [facility] Phone: Interpretation and review of laboratory results Abnormal [employer] Phone: MCH (RBC) [Entitic mass] 31.5 pg 25.2 - 33.5 pg [employer] Phone: MCHC (RBC) [Mass/Vol] 33.2 g/dL 28.4 - 34.8 g/dL [employer] Phone: MCV (RBC) [Entitic vol] 94.7 fL 82.6 - 102.9 fL [employer] Phone: NRBC Automated 0.0 0.0 per 100 WBC [employer] Phone: Platelet distribution width (Bld) [Ratio] 12.3 % 11.8 - 14.4 % [employer] Phone: Platelet mean volume (Bld) [Entitic vol] 8.9 fL 8.1 - 13.5 fL [employer] Phone: Platelets (Bld) [#/Vol] 191 10*3/uL [employer] Phone: RBC (Bld) [#/Vol] 3.59 10*6/uL Low 3.95 - 5.1 1 m/uL [employer] Phone: WBC (Bld) [#/Vol] 8.5 10*3/uL [employer] Phone: [employer] Phone: CBC Auto DifferentialOrdered By: Radu Worrell on 10-20-2020 [employer] Eos # 0.27 [employer] [facility] Work Phone: Comment on above: CORRECTED ON 10/20 A T 0933: PREVIOUSLY REPORTED 0.54 [employer] Immature Granulocyte 0.00 [employer] [facility] Work Phone: Absolute Lymph # 4.86 High [employer] [facility] Work Phone: Comment on above: CORRECTED ON 10/20 A T 0933: PREVIOUSLY REPORTED 3.11 [employer] Hale # 1.08 High [employer] [facility] Work Phone: Comment on above: CORRECTED ON 10/20 A T 0933: PREVIOUSLY REPORTED 0.54 Basophils (Bld) [#/Vol] 0.14 10*3/uL [employer] Work Phone: Comment on above: CORRECTED ON 10/20 A T 0933: PREVIOUSLY REPORTED 0.00 Basophils/100 WBC (Bld) 1 % 0 - 2 % [employer] Phone: Comment on above: CORRECTED ON 10/20 A T 0933: PREVIOUSLY REPORTED 0 Differential Type NOT REPORTED [employer] Phone: Eosinophils/100 WBC (Bld) 2 % 1 - 4 % [employer] Phone: Comment on above: CORRECTED ON 10/20 A T 0933: PREVIOUSLY REPORTED 4 Hematocrit (Bld) [Volume fraction] 36.4 % 36.3 - 47.1 % [employer] Phone: Hemoglobin.gastrointes tinal spec 1 Ql (Stl) 12.1 g/dL 11.9 - 15.1 g/dL [employer] Phone: Immature granulocytes/100 WBC (Bld) 0 % 0 [employer] Phone: Interpretation and review of laboratory results Abnormal [employer] Phone: Lymphocytes/100 WBC (Bld) 36 % 24 - 44 % [employer] Phone: Comment on above: CORRECTED ON 10/20 A T 0933: PREVIOUSLY REPORTED 23 MCH (RBC) [Entitic mass] 31.0 pg 25.2 - 33.5 pg [employer] Phone: MCHC (RBC) [Mass/Vol] 33.2 g/dL 28.4 - 34.8 g/dL [employer] Phone: MCV (RBC) [Entitic vol] 93.3 fL 82.6 - 102.9 fL [employer] Phone: Monocytes/100 WBC (Bld) 8 % High 1 - 7 % [employer] Phone: Comment on above: CORRECTED ON 10/20 A T 0933: PREVIOUSLY REPORTED 4 Morphology Elliott (Bld) [Interp] Normal [employer] Phone: nRBC 0 0 per 100 WBC [employer] Work Phone: Comment on above: CORRECTED ON 10/20 A T 0933: PREVIOUSLY REPORTED 9 NRBC Automated 0.0 0.0 per 100 WBC [employer] Phone: Platelet distribution width (Bld) [Ratio] 12.3 % 11.8 - 14.4 % [employer] Work Phone: Platelet Estimate NOT REPORTED [employer] Phone: Platelet mean volume (Bld) [Entitic vol] 9.3 fL 8.1 - 13.5 fL [employer] Phone: Platelets (Bld) [#/Vol] 281 10*3/uL [employer] Phone: RBC (Bld) [#/Vol] 3.90 10*6/uL Low 3.95 - 5.1 1 m/uL [employer] Work Phone: RBC (Bld) [#/Vol] NOT REPORTED [employer] Work Phone: Seg Neutrophils 53 % 36 - 66 % [employer] [facility] Work Phone: Comment on above: CORRECTED ON 10/20 A T 0933: PREVIOUSLY REPORTED 69 Segs Absolute 7.15 [employer] [facility] Work Phone: Comment on above: CORRECTED ON 10/20 A T 0933: PREVIOUSLY REPORTED 9.31 WBC (Bld) [#/Vol] 13.5 10*3/uL [employer] Work Phone: WBC (Bld) [#/Vol] NOT REPORTED [employer] Work Phone: [employer] Work Phone: CBC with Diffon 10-20-2020 Abs. Basophil 0.14 k/uL Normal 0.0-0.2 [facility] Comment on above: Result Comment: GIOVANA ECTED ON 10/20 AT 0933: PREVIOUSLY REPORTED 0.00 Performed By: #### B C #### [facility] [address] [place], [place] [phone] Commercial Relationship Manager: Emerson Hall MD Abs.Neutrophil (Seg) 7.15 k/uL Normal 1.8-7.7 [facility] Comment on above: Result Comment: GIOVANA ECTED ON 10/20 AT 0933: PREVIOUSLY REPORTED 9.31 Performed By: #### B C #### [facility] [address] [place], [place] [phone] Commercial Relationship Manager: Emerson Hall MD Basophils/100 WBC (Bld) 1 % Normal 0-2 [facility] Comment on above: Result Comment: GIOVANA ECTED ON 10/20 AT 0933: PREVIOUSLY REPORTED 0 Performed By: #### B C #### [address] [place], [place] [phone] Commercial Relationship Manager: Emerson Hall MD Eosinophils (Bld) [#/Vol] 0.27 10*3/uL Normal 0.0-0.4 [facility] Comment on above: Result Comment: GIOVANA ECTED ON 10/20 AT 0933: PREVIOUSLY REPORTED 0.54 Performed By: #### B C #### [address] [place], [place] [phone] Commercial Relationship Manager: Emerson Hall MD Eosinophils/100 WBC (Bld) 2 % Normal 1-4 [facility] Comment on above: Result Comment: GIOVANA ECTED ON 10/20 AT 932: PREVIOUSLY REPORTED 4 Performed By: #### B C #### [facility] [address] [place], [place] [phone] Commercial Relationship Manager: Emerson Hall MD Lymphocytes (Bld) [#/Vol] 4.86 10*3/uL High 1.0-4.8 [facility] Comment on above: Result Comment: GIOVANA ECTED ON 10/20 AT 0933: PREVIOUSLY REPORTED 3.11 Performed By: #### B C #### [facility] [address] [place], [place] [phone] Commercial Relationship Manager: Emerson Hall MD Lymphocytes/100 WBC (Bld) 36 % Normal 24-44 [facility] Comment on above: Result Comment: GIOVANA ECTED ON 10/20 AT 0933: PREVIOUSLY REPORTED 23 Performed By: #### B C #### [facility] [address] [place], [place] [phone] Commercial Relationship Manager: Emerson Hall MD Monocytes (Bld) [#/Vol] 1.08 10*3/uL High 0.1-0.8 [facility] Comment on above: Result Comment: GIOVANA ECTED ON 10/20 AT 09: PREVIOUSLY REPORTED 0.54 Performed By: #### B C #### [address] [place] [phone] Commercial Relationship Manager: Emerson Hall MD Monocytes/100 WBC (Bld) 8 % High 1-7 [facility] Comment on above: Result Comment: GIOVANA ECTED ON 10/20 AT 0933: PREVIOUSLY REPORTED 4 Performed By: #### B C #### [address] [place], [place] [phone] Commercial Relationship Manager: Emerson Hall MD Neutrophil (Seg) 53 % Normal 36-66 [facility] Comment on above: Result Comment: GIOVANA ECTED ON 10/20 AT 932: PREVIOUSLY REPORTED 69 Performed By: #### B C #### [facility] [address] [place], [place] [phone] Commercial Relationship Manager: Emerson Hall MD Nucleated RBC'S 0 per 100 WBC Normal 0 [facility] Comment on above: Result Comment: GIOVANA ECTED ON 10/20 AT 0933: PREVIOUSLY REPORTED 9 Performed By: #### B C #### [facility] [address] [place] [address] Commercial Relationship Manager: Emerson Hall MD Comp Metabolic Pr/rfx MGon 0 7-13-2021 (cont.) Normal [facility] Comment on above: Result Comment: Aver age GFR for 70 or more years old: 75 mL/min/1.73sq m Chronic Kidney Disease: <60 mL/min/1.73sq m Kidney failure: <15 mL/min/1.73sq m eGFR calculated using average adult body mass. Additional eGFR calculator available at: http://www.[employer]/multiple_crcl_2011.htm Performed By: #### B C #### [facility] [address] [place] [address] [place] [address] Commercial Relationship Manager: Emerson Hall MD Albumin [Mass/Vol] 3.1 g/dL Low 3.5-5.2 [facility] Comment on above: Performed By: #### B C #### [address] [place] [address] Commercial Relationship Manager: Emerson Hall MD Albumin/Glob Ratio 1.2 Normal 1.0-2.5 [facility] Comment on above: Performed By: #### B C #### [address] [place], [place] [phone] Commercial Relationship Manager: Emerson Hall MD Alkaline Phos 64 U/L Normal 35-104 [facility] Comment on above: Performed By: #### B C #### [facility] [address] [place] [address] Dr. [place], [place] [phone] Commercial Relationship Manager: Emerson Hall MD ALT [Catalytic activity/Vol] 7 U/L Normal 5-33 [facility] Comment on above: Performed By: #### B C #### [address] [place] [address] Commercial Relationship Manager: Emerson Hall MD Anion gap [Moles/Vol] 10 mmol/L Normal 9-17 [facility] Comment on above: Performed By: #### B C #### [address] [place] [phone] Commercial Relationship Manager: Emerson Hall MD AST [Catalytic activity/Vol] 13 U/L Normal <32 [facility] Comment on above: Performed By: #### B C #### [facility] [address] [place], [place] [phone] Commercial Relationship Manager: Emerson Hall MD Bilirubin [Mass/Vol] 0.17 mg/dL Low 0.3-1.2 [facility] Comment on above: Performed By: #### B C #### [facility] [address] [place], [place] [phone] Commercial Relationship Manager: Emerson Hall MD BUN/CRE Ratio 20 Normal 9-20 [facility] Comment on above: Performed By: #### B C #### [facility] [address] [place], [place] [phone] Commercial Relationship Manager: Emerson Hall MD Calcium [Mass/Vol] 8.6 mg/dL Normal 8.6-10.4 [facility] Comment on above: Performed By: #### B C #### [facility] [address] [place], [place] 7017983 Commercial Relationship Manager: Emerson Hall MD Chloride [Moles/Vol] 103 mmol/L Normal 98-107 [facility] Comment on above: Performed By: #### B C #### [facility] [address] [place], [place] [phone] Commercial Relationship Manager: Emerson Hall MD CO2 [Moles/Vol] 22 mmol/L Normal 20-31 [facility] Comment on above: Performed By: #### B C #### [facility] [address] [place], [place] [phone] Commercial Relationship Manager: Emerson Hall MD Creatinine [Mass/Vol] 0.61 mg/dL Normal 0.50-0.90 [facility] Comment on above: Performed By: #### B C #### [facility] [address] [place], [place] [phone] Commercial Relationship Manager: Emerson Hall MD GFR, Amer >60 Normal >60 [facility] Comment on above: Performed By: #### B C #### [facility] [address] [place], [place] [phone] Commercial Relationship Manager: Emerson Hall MD GFR,non Amer >60 Normal >60 [facility] Comment on above: Performed By: #### B C #### [facility] [address] [place], [place] 1416483 Commercial Relationship Manager: Emerson Hall MD Glucose [Mass/Vol] 91 mg/dL Normal 70-99 [facility] Comment on above: Performed By: #### B C #### [facility] [address] [place], [place] [phone] Commercial Relationship Manager: Emerson Hall MD Potassium [Moles/Vol] 4.5 mmol/L Normal 3.7-5.3 [facility] Comment on above: Performed By: #### B C #### [facility] [address] [place] [address] Dr. [place], [place] [phone] Commercial Relationship Manager: Emerson Hall MD Protein [Mass/Vol] 5.6 g/dL Low 6.4-8.3 [facility] Comment on above: Performed By: #### B C #### [facility] [address] [place], [place] [phone] Commercial Relationship Manager: Emerson Hall MD Sodium [Moles/Vol] 135 mmol/L Normal 135-144 [facility] Comment on above: Performed By: #### B C #### [facility] [address] [place], [place] 2298383 Commercial Relationship Manager: Emerson Hall MD Staging: Normal [facility] Comment on above: Result Comment: Stag e 1: Some kidney damage normal GFR Stage 2: Mild kidney damage GFR 60-89 Stage 3: Moderate kidney damage GFR 30-59 Stage 4: Severe kidney damage GFR 15-29 Stage 5: Severe kidney damage GFR <15 ESRD - chronic treatment by dialysis or transplant Performed By: #### B C #### [facility] [address] [place] [address] Commercial Relationship Manager: Emerson Hall MD Urea nitrogen [Mass/Vol] 12 mg/dL Normal 8-23 [facility] Comment on above: Performed By: #### B C #### [facility] [address] [place] [address] Commercial Relationship Manager: Emerson Hall MD Comprehensive Metabolic Pane l w/ Reflex to MGOrdered By: Casandra Cerda on 10-20-2020 Albumin [Mass/Vol] 3.1 g/dL Low 3.5 - 5.2 g/dL [employer] Phone: Albumin/Globulin [Mass ratio] 1.2 {ratio} [employer] Phone: ALP (Bld) [Catalytic activity/Vol] 64 U/L 35 - 104 U/L [employer] Phone: ALT [Catalytic activity/Vol] 7 U/L 5 - 33 U/L [employer] Phone: Anion gap [Moles/Vol] 10 mmol/L 9 - 17 mmol/L [employer] Phone: AST [Catalytic activity/Vol] 13 U/L <32 [employer] Phone: Bilirubin [Mass/Vol] 0.17 mg/dL Low 0.3 - 1 .2 mg/dL [employer] Phone: Calcium [Mass/Vol] 8.6 mg/dL 8.6 - 10. 4 mg/dL [employer] Phone: Chloride [Moles/Vol] 103 mmol/L 98 - 10 7 mmol/L [employer] Phone: CO2 [Moles/Vol] 22 mmol/L 20 - 31 mmol/L [employer] Phone: Creatinine [Mass/Vol] 0.61 mg/dL 0.50 - 0.90 mg/dL [employer] Phone: Free PSA/Total PSA [Mass fraction] 5.6 g/dL Low 6.4 - 8.3 g/dL [employer] Phone: GFR >60 >60 mL/min [employer] Phone: GFR Non- >60 >60 mL/min [employer] Phone: Glucose [Mass/Vol] 91 mg/dL 70 - 99 mg/dL [employer] Phone: Interpretation and review of laboratory results Abnormal [employer] Phone: Potassium [Moles/Vol] 4.5 mmol/L 3.7 - 5.3 mmol/L [employer] Phone: Sodium [Moles/Vol] 135 mmol/L 135 - 144 mmol/L [facility] Phone: Urea nitrogen (BldV) [Mass/Vol] 12 mg/dL 8 - 23 mg/dL [employer] Phone: Urea nitrogen/Creatinine (Bld) [Mass ratio] 20 [facility] Phone: [employer] Phone: Keppraon 10-20-2020 KEPP 19 ug/mL Normal [facility] Comment on above: Result Comment: A [...] known. Performed By: #### K EPPRA #### [facility] [address] [place] [address] Commercial Relationship Manager: Kyle Cowan MD Laboratory - Chemistry and C hemistry - challengeOrdered By: Casandra Cerda on 10-20-2020 GFR/1.73 sq M.predicted MDRD (S/P/Bld) [Vol rate/Area] [employer] Phone: Comment on above: Average GFR for 70 o r more years old: 75 mL/min/1.73sq m Chronic Kidney Disease: <60 mL/min/1.73sq m Kidney failure: <15 mL/min/1.73sq m eGFR calculated using average adult body mass. Additional eGFR calculator available at: http://www.Gu[employer]Core/[employer]_crcl_2012.htm Stage 1: Some kidney damage normal GFR Stage 2: Mild kidney damage GFR 60-89 Stage 3: Moderate kidney damage GFR 30-59 Stage 4: Severe kidney damage GFR 15-29 Stage 5: Severe kidney damage GFR <15 ESRD - chronic treatment by dialysis or transplant Levetiracetam LevelOrdered B y: Casandra Cerda on 10-20-2020 Levetiracetam Lvl 19 ug/mL [employer] Work Phone: Comment on above: A reference [...] serum concentrations and toxicity is not known. [employer] Phone: Blood Gas, VenousOrdered By: Radu Worrell on 10-19-2020 Arthur Test NOT REPORTED [employer] Phone: Carboxyhemoglobin NOT REPORTED 0.0 - 5.0 % [facility] Work Phone: Comment on above: FIO2 NOT REPORTED [facility] Work Phone: HCO3 (Bld) [Moles/Vol] 28 mmol/L 24.0 - 30.0 mmol/L [facility] Work Phone: Interpretation and review of laboratory results Abnormal [facility] [employer] Work Phone: Methemoglobin NOT REPORTED 0.0 - 1.9 % [facility] Work Phone: Mode NOT REPORTED [facility] Work Phone: Negative Base Excess, Moncho NOT REPORTED 0.0 - 2.0 mmol/L [facility] [employer] Work Phone: NOTIFICATION NOT REPORTED [facility] Work Phone: NOTIFICATION TIME NOT REPORTED [facility] [employer] Work Phone: O2 Device/Flow/% NOT REPORTED [facility] [employer] Work Phone: Oxygen saturation in Blood 39.6 % Low 60.0 - 85.0 % [facility] [employer] Work Phone: Oxyhemoglobin NOT REPORTED 95.0 - 98.0 % [facility] [employer] Work Phone: pCO2, Moncho 52.9 [facility] [employer] Work Phone: pCO2, Moncho, Temp Adj NOT REPORTED [facility] Work Phone: Peep/Cpap NOT REPORTED [facility] [employer] Work Phone: pH, Moncho 7.342 [facility] [employer] Work Phone: pH, Moncho, Temp Adj NOT REPORTED [facility] [employer] Work Phone: pO2, Moncho 24.4 Low [facility] [employer] Work Phone: pO2, Moncho, Temp Adj NOT REPORTED [facility] [employer] Work Phone: Positive Base Excess, Moncho 1.2 mmol/L 0.0 - 2.0 mmol/L [facility] Work Phone: PSV NOT REPORTED [employer] Work Phone: Pt Temp 37.0 [employer] Work Phone: Pt. Position NOT REPORTED [employer] Work Phone: Respiratory Rate NOT REPORTED [employer] Phone: Sample Site NOT REPORTED [employer] Work Phone: Set Rate NOT REPORTED [employer] Work Phone: Text for Respiratory DRAWN PER ED RN [employer] Phone: Total Hb NOT REPORTED 12.0 - 16.0 g/dl [employer] Phone: Total Rate NOT REPORTED [employer] Phone: VT NOT REPORTED [employer] Phone: [employer] Work Phone: Brain Natri. Peptideon 10-19 BNP Interpretation Pro-BNP Reference Range: Normal [facility] Comment on above: Result Comment: Rule Out: <300 Horne Zone: Age <50 300-450 Age 50-75 300-900 Age >75 300-1800 Usually represents mild to moderate HF but other cardiopulmonary causes cannot be ruled out. Rule In: Age <50 >450 Age 50-75 >900 Age >75 >1800 Performed By: #### B C #### [facility] [address] [place] [address] Commercial Relationship Manager: Emerson Hall MD Natriuretic peptide B (Bld) [Mass/Vol] 158 pg/mL Normal <300 [facility] Comment on above: Result Comment: Pro- BNP results cannot be compared to BNP results. Performed By: #### B C #### [facility] [address] [place] [address] Commercial Relationship Manager: Emerson Hall MD Brain Natriuretic PeptideOrd ered By: Radu Worrell on 10-19-2020 BNP Interpretation Pro-BNP Reference Range: [facility] [employer] Phone: Comment on above: Rule Out: <300 Horne Zone: Age <50 300-450 Age 50-75 300-900 Age >75 300-1800 Usually represents mild to moderate HF but other cardiopulmonary causes cannot be ruled out. Rule In: Age <50 >450 Age 50-75 >900 Age >75 >1800 Natriuretic peptide B (Bld) [Mass/Vol] 158 pg/mL <300 [facility] Phone: Comment on above: Pro-BNP results liana ot be compared to BNP results. CBC with Diffon 10-19-2020 Abs.Imm.Granulocyte 0.00 k/uL Normal 0.00-0.30 [facility] Comment on above: Performed By: #### B C #### [facility] [address] [place] [address] [place] [place], [place] [phone] Commercial Relationship Manager: Emerson Hall MD Immature granulocytes/100 WBC (Bld) 0 % Normal 0 [facility] Comment on above: Performed By: #### B C #### [facility] [address] [place] [address] [place] [address] Commercial Relationship Manager: Emerson Hall MD Morphology Elliott (Bld) [Interp] Normal Normal [facility] Comment on above: Performed By: #### B C #### [address] [place] [phone] Commercial Relationship Manager: Emerson Hall MD Erythrocyte distribution width (RBC) [Ratio] 12.3 % Normal 11.8-14.4 [facility] Comment on above: Performed By: #### B C #### [facility] [address] [place] [phone] Commercial Relationship Manager: Emerson Hall MD Hematocrit (Bld) [Volume fraction] 36.4 % Normal 36.3-47.1 [facility] Comment on above: Performed By: #### B C #### [facility] [address] [place] [address] [place] [place] [phone] Commercial Relationship Manager: Emerson Hall MD Hemoglobin (Bld) [Mass/Vol] 12.1 g/dL Normal 11.9-15.1 [facility] Comment on above: Performed By: #### B C #### [address] [place], [place] [phone] Commercial Relationship Manager: Emerson Hall MD MCH (RBC) [Entitic mass] 31.0 pg Normal 25.2-33.5 [facility] Comment on above: Performed By: #### B C #### [address] [place], [place] [phone] Commercial Relationship Manager: Emerson Hall MD MCHC (RBC) [Mass/Vol] 33.2 g/dL Normal 28.4-34.8 [facility] Comment on above: Performed By: #### B C #### [address] [place], [place] [phone] Commercial Relationship Manager: Emerson Hall MD MCV (RBC) [Entitic vol] 93.3 fL Normal 82.6-102.9 [facility] Comment on above: Performed By: #### B C #### [address] [place], [place] [phone] Commercial Relationship Manager: Emerson Hall MD NRBC Automated 0.0 per 100 WBC Normal 0.0 [facility] Comment on above: Performed By: #### B C #### [address] [place], [place] [phone] Commercial Relationship Manager: Emerson Hall MD Platelet mean volume (Bld) [Entitic vol] 9.3 fL Normal 8.1-13.5 [facility] Comment on above: Performed By: #### B C #### [address] [place], [place] [phone] Commercial Relationship Manager: Emerson Hall MD Platelets (Bld) [#/Vol] 281 10*3/uL Normal 138-453 [facility] Comment on above: Performed By: #### B C #### [facility] [address] [place], [place] [phone] Commercial Relationship Manager: Emerson Hall MD RBC (Bld) [#/Vol] 3.90 10*6/uL Low 3.95-5.11 [facility] Comment on above: Performed By: #### B C #### [facility] [address] [place], [place] [phone] Commercial Relationship Manager: Emerson Hall MD WBC (Bld) [#/Vol] 13.5 10*3/uL High 3.5-11.3 [facility] Comment on above: Performed By: #### B C #### [facility] [address] [place] [address] [place] [address] Commercial Relationship Manager: Emerson Hall MD Auto Diff Performed NOT REPORTED Normal [facility] Comment on above: Performed By: #### B C #### [facility] [address] [place] [address] [place] [address] Commercial Relationship Manager: Emerson Hall MD Platelet Estimate NOT REPORTED Normal [facility] Comment on above: Performed By: #### B C #### [facility] [address] [place] [address] [place] [address] Commercial Relationship Manager: Emerson Hall MD RBC morphology finding Nom (Bld) NOT REPORTED Normal [facility] Comment on above: Performed By: #### B C #### [facility] [address] [place], [place] [phone] Commercial Relationship Manager: Emerson Hall MD WBC Morphology NOT REPORTED Normal [facility] Comment on above: Performed By: #### B C #### [facility] [address] [place] [address] [place] [place], [place] [phone] Commercial Relationship Manager: Emerson Hall MD CT HEAD WO [...] Amina Lamas DO 10/19/20 Final result Normal [facility] CT Head WO ContrastOrdered B y: Izzy Doziercheson on 10-19-2020 No acute intracrania l abnormality. 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 Critical results were called by Dr. Amina Lamas to ANN Dyson on 10/19/2020 at 18:14. [facility] Work Phone: EXAMINATION: CT OF T HE [...] of the visualized skull or soft tissues. [employer] Work Phone: Romero, [facility] Incoming Radiant Results From [employer] - 10/19/2020 6:20 PM EDT EXAMINATION: CT [...] to ANN Dyson on 10/19/2020 at 18:14. [facility] Work Phone: [facility] Work Phone: Comp Metabolic Pr/rfx MGon 0 10-19-2020 (cont.) Normal [facility] Comment on above: Result Comment: Aver age GFR for 70 or more years old: 75 mL/min/1.73sq m Chronic Kidney Disease: <60 mL/min/1.73sq m Kidney failure: <15 mL/min/1.73sq m eGFR calculated using average adult body mass. Additional eGFR calculator available at: http://www.[employer]/multiple_crcl_2012.htm Performed By: #### B C #### [facility] [address] [place] [address] [place] [address] Commercial Relationship Manager: Emerson Hall MD Albumin [Mass/Vol] 3.7 g/dL Normal 3.5-5.2 [facility] Comment on above: Performed By: #### B C #### [facility] [address] [place] [address] Commercial Relationship Manager: Emerson Hall MD Albumin/Glob Ratio 1.3 Normal 1.0-2.5 [facility] Comment on above: Performed By: #### B C #### [facility] [address] [place] [address] Commercial Relationship Manager: Emerson Hall MD Alkaline Phos 69 U/L Normal 35-104 [facility] Comment on above: Performed By: #### B C #### [facility] [address] [place] [address] Commercial Relationship Manager: Emerson Hall MD ALT [Catalytic activity/Vol] 8 U/L Normal 5-33 [facility] Comment on above: Performed By: #### B C #### [facility] [address] [place], [place] [phone] Commercial Relationship Manager: Emerson Hall MD Anion gap [Moles/Vol] 13 mmol/L Normal 9-17 [facility] Comment on above: Performed By: #### B C #### [facility] [address] [place], [place] [phone] Commercial Relationship Manager: Emerson Hall MD AST [Catalytic activity/Vol] 16 U/L Normal <32 [facility] Comment on above: Performed By: #### B C #### [facility] [address] [place], [place] [phone] Commercial Relationship Manager: Emerson Hall MD Bilirubin [Mass/Vol] 0.30 mg/dL Normal 0.3-1.2 [facility] Comment on above: Performed By: #### B C #### [facility] [address] [place], [place] [phone] Commercial Relationship Manager: Emerson Hall MD BUN/CRE Ratio 18 Normal 9-20 [facility] Comment on above: Performed By: #### B C #### [facility] [address] [place], [place] [phone] Commercial Relationship Manager: Emerson Hall MD Calcium [Mass/Vol] 9.1 mg/dL Normal 8.6-10.4 [facility] Comment on above: Performed By: #### B C #### [facility] [address] [place], [place] [phone] Commercial Relationship Manager: Emerson Hall MD Chloride [Moles/Vol] 101 mmol/L Normal 98-107 [facility] Comment on above: Performed By: #### B C #### [facility] [address] [place], [place] [phone] Commercial Relationship Manager: Emerson Hall MD CO2 [Moles/Vol] 23 mmol/L Normal 20-31 [facility] Comment on above: Performed By: #### B C #### [facility] [address] [place], [place] [phone] Commercial Relationship Manager: Emerson Hall MD Creatinine [Mass/Vol] 0.91 mg/dL High 0.50-0.90 [facility] Comment on above: Performed By: #### B C #### [facility] [address] [place], [place] [phone] Commercial Relationship Manager: Emerson Hall MD GFR, Amer >60 Normal >60 [facility] Comment on above: Performed By: #### B C #### [facility] [address] [place], [place] [phone] Commercial Relationship Manager: Emerson Hall MD GFR,non Amer 59 mL/min Low >60 [facility] Comment on above: Performed By: #### B C #### [facility] [address] [place], [place] [phone] Commercial Relationship Manager: Emerson Hall MD Glucose [Mass/Vol] 137 mg/dL High 70-99 [facility] Comment on above: Performed By: #### B C #### [facility] [address] [place] [address] Commercial Relationship Manager: Emerson Hall MD Potassium [Moles/Vol] 3.9 mmol/L Normal 3.7-5.3 [facility] Comment on above: Performed By: #### B C #### [facility] [address] [place], [place] [phone] Commercial Relationship Manager: Emerson Hall MD Protein [Mass/Vol] 6.6 g/dL Normal 6.4-8.3 [facility] Comment on above: Performed By: #### B C #### [facility] [address] [place] [address] Commercial Relationship Manager: Emerson Hall MD Sodium [Moles/Vol] 137 mmol/L Normal 135-144 [facility] Comment on above: Performed By: #### B C #### [facility] [address] [place] [address] Commercial Relationship Manager: Emerson Hall MD Staging: Normal [facility] Comment on above: Result Comment: Stag e 1: Some kidney damage normal GFR Stage 2: Mild kidney damage GFR 60-89 Stage 3: Moderate kidney damage GFR 30-59 Stage 4: Severe kidney damage GFR 15-29 Stage 5: Severe kidney damage GFR <15 ESRD - chronic treatment by dialysis or transplant Performed By: #### B C #### [facility] [address] [place] [address] Commercial Relationship Manager: Emerson Hall MD Urea nitrogen [Mass/Vol] 16 mg/dL Normal 8-23 [facility] Comment on above: Performed By: #### B C #### [facility] [address] [place] [address] Commercial Relationship Manager: Emerson Hall MD Comprehensive Metabolic Pane l w/ Reflex to MGOrdered By: Radu Worrell on 10-19-2020 Albumin [Mass/Vol] 3.7 g/dL 3.5 - 5.2 g/dL [facility] Phone: Albumin/Globulin [Mass ratio] 1.3 {ratio} [facility] [employer] Phone: ALP (Bld) [Catalytic activity/Vol] 69 U/L 35 - 104 U/L [facility] Phone: ALT [Catalytic activity/Vol] 8 U/L 5 - 33 U/L [facility] Phone: Anion gap [Moles/Vol] 13 mmol/L 9 - 17 mmol/L [employer] Phone: AST [Catalytic activity/Vol] 16 U/L <32 [employer] Phone: Bilirubin [Mass/Vol] 0.30 mg/dL 0.3 - 1 .2 mg/dL [employer] Phone: Calcium [Mass/Vol] 9.1 mg/dL 8.6 - 10. 4 mg/dL [employer] Phone: Chloride [Moles/Vol] 101 mmol/L 98 - 10 7 mmol/L [employer] Phone: CO2 [Moles/Vol] 23 mmol/L 20 - 31 mmol/L [employer] Phone: Creatinine [Mass/Vol] 0.91 mg/dL High 0.50 - 0.90 mg/dL [employer] Phone: Free PSA/Total PSA [Mass fraction] 6.6 g/dL 6.4 - 8.3 g/dL [employer] Phone: GFR >60 >60 mL/min [employer] Phone: GFR Non- 59 mL/min Low >60 [employer] Phone: Glucose [Mass/Vol] 137 mg/dL High 70 - 99 mg/dL [employer] Phone: Interpretation and review of laboratory results Abnormal [employer] Phone: Potassium [Moles/Vol] 3.9 mmol/L 3.7 - 5.3 mmol/L [employer] Phone: Sodium [Moles/Vol] 137 mmol/L 135 - 144 mmol/L [employer] Phone: Urea nitrogen (BldV) [Mass/Vol] 16 mg/dL 8 - 23 mg/dL [employer] Phone: Urea nitrogen/Creatinine (Bld) [Mass ratio] 18 [employer] Phone: EKG 12 LeadOrdered By: Katy Worrell on 10-19-2020 Atrial Rate 50 BPM [employer] Phone: P Martin 23 degrees [employer] Work Phone: P-R Interval 152 ms [employer] Phone: Q-T Interval 480 ms [employer] Phone: QRS Duration 90 ms [employer] Work Phone: QTc Calculation (Bazett) 437 ms [employer] Phone: R Martin 7 degrees [employer] Phone: T Martin 42 degrees [employer] Phone: Ventricular Rate 50 BPM [employer] Work Phone: Sinus bradycardia Possible Anterior infarct , age undetermined Abnormal ECG When compared with ECG of 03-AUG-2020 09:21, No significant change was found Confirmed by JOSE RAMOS ([id number]) on 10/19/2020 10:36:19 PM [employer] Phone: Romero, [employer] Incoming E kg Results From [employer] - 10/19/2020 10:36 PM EDT Sinus bradycardia Possible Anterior infarct , age undetermined Abnormal ECG When compared with ECG of 03-AUG-2020 09:21, No significant change was found Confirmed by JOSE RAMOS ([id number]) on 10/19/2020 10:36:19 PM [employer] Work Phone: [employer] Phone: Laboratory - Chemistry and C hemistry - challengeOrdered By: Radu Worrell on 10-19-2020 GFR/1.73 sq M.predicted MDRD (S/P/Bld) [Vol rate/Area] [employer] Phone: Comment on above: Average GFR for 70 o r more years old: 75 mL/min/1.73sq m Chronic Kidney Disease: <60 mL/min/1.73sq m Kidney failure: <15 mL/min/1.73sq m eGFR calculated using average adult body mass. Additional eGFR calculator available at: http://www.[employer]/multiple_crcl_2012.htm Stage 1: Some kidney damage normal GFR Stage 2: Mild kidney damage GFR 60-89 Stage 3: Moderate kidney damage GFR 30-59 Stage 4: Severe kidney damage GFR 15-29 Stage 5: Severe kidney damage GFR <15 ESRD - chronic treatment by dialysis or transplant Lactic Acidon 10-19-2020 Lactate [Moles/Vol] 1.1 mmol/L Normal 0.5-2.2 [facility] Comment on above: Performed By: #### B C #### [facility] [address] [place] [address] Commercial Relationship Manager: Emerson Hall MD Lactic AcidOrdered By: Katy Worrell on 10-19-2020 Lactate [Moles/Vol] 1.1 mmol/L 0.5 - 2. 2 mmol/L [facility] Work Phone: [facility] Work Phone: Lipaseon 10-19-2020 Lipase [Catalytic activity/Vol] 21 U/L Normal 13-60 [facility] Comment on above: Performed By: #### B C #### [facility] [address] [place] [address] Commercial Relationship Manager: Emerson Hall MD LipaseOrdered By: Radu howard on 10-19-2020 Lipase [Catalytic activity/Vol] 21 U/L 13 - 60 U/L [facility] [employer] Phone: Microscopic UrinalysisOrdere d By: Radu Worrell on 10-19-2020 - [facility] [employer] Phone: Amorphous, UA NOT REPORTED None [facility] Work Phone: Bacteria, UA TRACE Abnormal None [facility] Work Phone: Casts UA NOT REPORTED /LPF [facility] [employer] Work Phone: Crystals, UA NOT REPORTED None /HPF [facility] Work Phone: Epithelial Cells UA 0 TO 2 [facility] Work Phone: Interpretation and review of laboratory results Abnormal [facility] [employer] Work Phone: Mucus, UA 1+ Abnormal None [facility] [employer] Work Phone: Other Observations UA NOT REPORTED NOT REQ. [employer] Work Phone: RBC, UA 0 TO 2 [facility] [employer] Work Phone: Renal Epithelial, UA NOT REPORTED 0 /HPF [facility] [employer] Work Phone: Trichomonas, UA NOT REPORTED None [facility] Work Phone: WBC, UA 0 TO 2 [facility] [employer] Work Phone: Yeast, UA NOT REPORTED None [facility] [employer] Work Phone: [facility] [employer] Work Phone: No Panel InformationOrdered By: Radu Worrell on 10-19-2020 [facility] [employer] Work Phone: Troponinon 10-19-2020 Troponin, High Sens 10 ng/L Normal 0-14 [facility] Comment on above: Result Comment: High Sensitivity Troponin values cannot be compared with other Troponin methodologies. Patients with high levels of Biotin oral intake (i.e >5mg/day) may have falsely decreased Troponin levels. Samples collected within 8 hours of biotin intake may require additional information for diagnosis. Performed By: #### B C #### [facility] [address] [place] [address] Commercial Relationship Manager: Emerson Hall MD Troponin Interp. NOT REPORTED Normal [facility] Comment on above: Performed By: #### B C #### [facility] [address] [place] [address] Commercial Relationship Manager: Emerson Hall MD Troponin T NOT REPORTED Normal <0.03 [facility] Comment on above: Performed By: #### B C #### [facility] [address] [place] [address] Commercial Relationship Manager: Emerson Hall MD TroponinOrdered By: Radu Worrell on 10-19-2020 Troponin Interp NOT REPORTED [facility] [employer] Work Phone: Troponin T NOT REPORTED <0.03 ng/mL [facility] Work Phone: Troponin, High Sensitivity 10 ng/L 0 - 14 ng/L [facility] Work Phone: Comment on above: High Sensitivity Troponin values cannot be compared with other Troponin methodologies. Patients with high levels of Biotin oral intake (i.e >5mg/day) may have falsely decreased Troponin levels. Samples collected within 8 hours of biotin intake may require additional information for diagnosis. UA w/Reflex Cultureon 2020 Bilirubin, SemiQt,Ur SMALL Abnormal NEG [facility] Comment on above: Performed By: #### U DONNY REBOLLEDO #### [facility] [address] [place] [address] Commercial Relationship Manager: Emerson Hall MD Blood, Urine Negative Normal NEG [facility] Comment on above: Performed By: #### U DONNY REBOLLEDO #### [facility] [address] [place] [address] Commercial Relationship Manager: Emerson Hall MD Clarity (U) CLEAR Normal CLEAR [facility] Comment on above: Performed By: #### U DONNY REBOLLEDO #### [facility] [address] [place] [address] Commercial Relationship Manager: Emerson Hall MD Color (U) YELLOW Normal YEL [facility] Comment on above: Performed By: #### U DONNY REBOLLEDO #### [facility] [address] [place] [address] [place]. [place], [place] [phone] Commercial Relationship Manager: Emerson Hall MD Glucose Ql (U) Negative Normal NEG [facility] in Hospital Comment on above: Performed By: #### U AX, UMICAO #### [facility] [address] [place], [place] [phone] Commercial Relationship Manager: Emerson Hall MD Ketones Ql (U) 2+ Abnormal NEG [facility] Comment on above: Performed By: #### U AX, UMICAO #### [facility] [address] [place] [address] Commercial Relationship Manager: Emerson Hall MD Leukocyte esterase Test strip Ql (U) Negative Normal NEG [facility] Comment on above: Performed By: #### U AX, UMICAO #### [facility] [address] [place] [address] Dr. [place], [place] [phone] Commercial Relationship Manager: Emerson Hall MD Nitrite,Ur Negative Normal [facility] Comment on above: Performed By: #### U AX, UMICAO #### [facility] [address] [place] [address] [place] [address] Commercial Relationship Manager: Emerson Hall MD PH,Ur 5.0 Normal 5.0-9.0 [facility] Comment on above: Performed By: #### U AX, UMICAO #### [facility] [address] [place] [address] Dr. [place], [place] [phone] Commercial Relationship Manager: Emerson Hall MD Protein Ql (U) TRACE Abnormal NEG [facility] Comment on above: Performed By: #### U AX, UMICAO #### [facility] [address] [place] [address] Dr. [place], [place] [phone] Commercial Relationship Manager: Emerson Hall MD Spec. Rhine,Ur >1.030 High 1.010-1.020 [facility] Comment on above: Performed By: #### U AX, UMICAO #### [facility] [address] [place] [address] [place] [address] Commercial Relationship Manager: Emerson Hall MD Urobilinogen,Ur Normal Normal NORM [facility] Comment on above: Performed By: #### U AX, UMICAO #### [facility] [address] [place] [address] Commercial Relationship Manager: Emerson Hall MD Comment NOT REPORTED Normal [facility] Comment on above: Performed By: #### U AX, UMICAO #### [facility] [address] [place] [address] Commercial Relationship Manager: Emerson Hall MD Urinalysis Reflex to Culture Ordered By: Radu Worrell on 10-19-2020 Bilirubin Urine SMALL Abnormal NEGATIVE [facility] Work Phone: Color, UA YELLOW YELLOW [facility] [employer] Work Phone: Glucose, Ur Negative NEGATIVE [facility] Work Phone: Interpretation and review of laboratory results Abnormal [facility] Work Phone: Ketones Ql (U) 2+ Abnormal NEGATIVE [facility] Work Phone: Leukocyte esterase Test strip Ql (U) Negative NEGATIVE [facility] Phone: Nitrite, Urine Negative NEGATIVE [facility] Work Phone: pH, UA 5.0 [facility] [employer] Work Phone: Protein, UA TRACE Abnormal NEGATIVE [facility] Work Phone: Specific Rhine, UA >1.030 High [facility] [employer] Work Phone: Turbidity UA CLEAR CLEAR [facility] [employer] Work Phone: Urinalysis Comments NOT REPORTED [facility] [employer] Work Phone: Urine Hgb Negative NEGATIVE [facility] Work Phone: Urobilinogen, Urine Normal Normal [facility] Work Phone: [facility] Work Phone: Urinalysis,Microon 1 ----- Normal [facility] Comment on above: Performed By: #### U AX, UMICAO #### [facility] [address] [place], [place] [phone] Commercial Relationship Manager: Emerson Hall MD Bacteria TRACE Abnormal [facility] Comment on above: Performed By: #### U AX, UMICAO #### [facility] [address] [place] [address] Commercial Relationship Manager: Emerson Hall MD Epithelial cells LM Ql (Urine sed) 0 TO 2 Normal 0-25 [facility] Comment on above: Performed By: #### U AX, UMICAO #### [facility] [address] [place], [place] [phone] Commercial Relationship Manager: Emerson Hall MD Mucus Strands 1+ Abnormal [facility] Comment on above: Performed By: #### U AX, UMICAO #### [facility] [address] [place] [address] Commercial Relationship Manager: Emerson Hall MD Urine RBC's 0 TO 2 Normal 0-2 [facility] Comment on above: Performed By: #### U AX, UMICAO #### [facility] [address] [place] [address] Commercial Relationship Manager: Emerson Hall MD Urine WBC's 0 TO 2 Normal 0-5 [facility] Comment on above: Performed By: #### U AX, UMICAO #### [facility] [address] [place], [place] [phone] Commercial Relationship Manager: Emerson Hall MD Amorphous sediment LM Ql (Urine sed) NOT REPORTED Normal [facility] Comment on above: Performed By: #### U AX, UMICAO #### [facility] [address] [place] [address] Commercial Relationship Manager: Emerson Hall MD Casts NOT REPORTED Normal [facility] Comment on above: Performed By: #### U AX, UMICAO #### [facility] [address] [place] [address] Commercial Relationship Manager: Emerson Hall MD Crystals LM Nom (Urine sed) NOT REPORTED Normal [facility] Comment on above: Performed By: #### U AX, UMICAO #### [facility] [address] [place] [address] Commercial Relationship Manager: Emerson Hall MD Epithelial, Renal NOT REPORTED Normal 0 [facility] Comment on above: Performed By: #### U AX, UMICAO #### [facility] [address] [place] [address] Commercial Relationship Manager: Emerson Hall MD Other Observations NOT REPORTED Normal [facility] Comment on above: Performed By: #### U AX, UMICAO #### [facility] [address] [place] [address] Commercial Relationship Manager: Emerson Hall MD Trichomonas NOT REPORTED Normal [facility] Comment on above: Performed By: #### U AX, UMICAO #### [facility] [address] [place] [address] Commercial Relationship Manager: Emerson Hall MD Yeast NOT REPORTED Normal NONE [facility] Comment on above: Performed By: #### U AX, UMICAO #### [facility] [address] [place] [address] Commercial Relationship Manager: Emerson Hall MD Venous Blood Gaseson 021 Body Temp. 37.0 Normal [facility] Comment on above: Performed By: #### U AX, UMICAO #### [facility] [address] [place], [place] [phone] Commercial Relationship Manager: Emerson Hall MD HCO3 (Bld) [Moles/Vol] 28.0 mmol/L Normal 24.0-30.0 [facility] Comment on above: Performed By: #### U AXDINESHICAO #### [facility] [address] [place] [address] Commercial Relationship Manager: Emerson Hall MD Oxygen (Bld) [Partial pressure] 24.4 mm[Hg] Low 30.0-50.0 [facility] Comment on above: Performed By: #### U AXDINESHICAO #### [facility] [address] [place] [address] Commercial Relationship Manager: Emerson Hall MD Oxygen saturation in Blood 39.6 % Low 60.0-85.0 [facility] Comment on above: Performed By: #### U JANELL REBOLLEDOO #### [facility] [address] [place] [address] Dr. [place], [place] [phone] Commercial Relationship Manager: Emerson Hall MD pCO2 52.9 Normal 39-55 [facility] Comment on above: Performed By: #### U AXJANELLO #### [facility] [address] [place] [address] Dr. [place], [place] [phone] Commercial Relationship Manager: Emerson Hall MD pH (Bld) 7.342 [pH] Normal 7.32-7.42 [facility] Comment on above: Performed By: #### U AXDINESHICAO #### [facility] [address] [place], [place] [phone] Commercial Relationship Manager: Emerson Hall MD Positive Base Excess 1.2 mmol/L Normal 0.0-2.0 [facility] Comment on above: Performed By: #### U AX UMICAO #### [facility] [address] [place], [place] [phone] Commercial Relationship Manager: Emerson Hall MD Text for Respiratory DRAWN PER ED RN Normal [facility] Comment on above: Performed By: #### U AX, UMICAO #### [facility] [address] [place], [place] [phone] Commercial Relationship Manager: Emerson Hall MD Arthur Test NOT REPORTED Normal [facility] Comment on above: Performed By: #### U AX, UMICAO #### [facility] [address] [place], [place] [phone] Commercial Relationship Manager: Emerson Hall MD Carboxy Hgb NOT REPORTED Normal 0.0-5.0 [facility] Comment on above: Performed By: #### U AX, UMICAO #### [facility] [address] [place], [place] [phone] Commercial Relationship Manager: Emerson Hall MD FIO2 NOT REPORTED Normal [facility] Comment on above: Performed By: #### U AX, UMICAO #### [facility] [address] [place] [address] Commercial Relationship Manager: Emerson Hall MD Methemoglobin NOT REPORTED Normal 0.0-1.9 [facility] Comment on above: Performed By: #### U AX, UMICAO #### [facility] [address] [place], [place] [phone] Commercial Relationship Manager: Emerson Hall MD Mode NOT REPORTED Normal [facility] Comment on above: Performed By: #### U AX, UMICAO #### [facility] [address] [place], [place] [phone] Commercial Relationship Manager: Emerson Hall MD Negative Base Excess NOT REPORTED Normal 0.0-2.0 [facility] Comment on above: Performed By: #### U AX, UMICAO #### [facility] [address] [place], [place] [phone] Commercial Relationship Manager: Emerson Hall MD Notification Time NOT REPORTED Normal [facility] Comment on above: Performed By: #### U AX, UMICAO #### [facility] [address] [place], [place] [phone] Commercial Relationship Manager: Emerson Hall MD Notification: NOT REPORTED Normal [facility] Comment on above: Performed By: #### U AX, UMICAO #### [facility] [address] [place], [place] [phone] Commercial Relationship Manager: Emerson Hall MD O2 Device/Flow/% NOT REPORTED Normal [facility] Comment on above: Performed By: #### U AX, UMICAO #### [facility] [address] [place], [place] [phone] Commercial Relationship Manager: Emerson Hall MD Oxyhemoglobin NOT REPORTED Normal 95.0-98.0 [facility] Comment on above: Performed By: #### U AX, UMICAO #### [facility] [address] [place] [address] Commercial Relationship Manager: Emerson Hall MD Pco2 Adj'd for Temp. NOT REPORTED Normal 39.0-55.0 [facility] Comment on above: Performed By: #### U AX, UMICAO #### [facility] [address] [place] [address] Commercial Relationship Manager: Emerson Hall MD PEEP/CPAP NOT REPORTED Normal [facility] Comment on above: Performed By: #### U AX, UMICAO #### [facility] [address] [place] [address] Commercial Relationship Manager: Emerson Hall MD pH Adjst'd for Temp. NOT REPORTED Normal 7.320-7.420 [facility] Comment on above: Performed By: #### U AX, UMICAO #### [facility] [address] [place] [address] Commercial Relationship Manager: Emerson Hall MD pO2 Adj'd for Temp. NOT REPORTED Normal 30.0-50.0 [facility] Comment on above: Performed By: #### U AX, UMICAO #### [facility] [address] [place] [address] Commercial Relationship Manager: Emerson Hall MD PSV NOT REPORTED Normal [facility] Comment on above: Performed By: #### U AX, UMICAO #### [facility] [address] [place], [facility]83 Commercial Relationship Manager: Emerson Hall MD Pt. Position NOT REPORTED Normal [facility] Comment on above: Performed By: #### U AX, UMICAO #### [facility] [address] [place] [address] Commercial Relationship Manager: Emerson Hall MD Respiratory Rate NOT REPORTED Normal [facility] Comment on above: Performed By: #### U AX, UMICAO #### [facility] [address] [place], [facility]83 Commercial Relationship Manager: Emerson Hall MD Set Rate NOT REPORTED Normal [facility] Comment on above: Performed By: #### U AX, UMICAO #### [facility] [address] [place] [address] Dr. [place], [facility]83 Commercial Relationship Manager: Emerson Hall MD Site Drawn NOT REPORTED Normal [facility] Comment on above: Performed By: #### U AX, UMICAO #### [facility] [address] [place], [facility]83 Commercial Relationship Manager: Emerson Hall MD Total Hb NOT REPORTED Normal 12.0-16.0 [facility] Comment on above: Performed By: #### U AX, UMICAO #### [facility] [address] [place] [address] Commercial Relationship Manager: Emerson Hall MD Total Rate NOT REPORTED Normal [facility] Comment on above: Performed By: #### U AX, UMICAO #### [facility] [address] [place] [address] Commercial Relationship Manager: Emerson Hall MD VT NOT REPORTED Normal [facility] Comment on above: Performed By: #### U AXDONNY #### [facility] [address] [place] [address] Commercial Relationship Manager: Emerson Hall MD XR CHEST PORTABLEon [...] Milton Zheng MD 10/19/20 Final result Normal [facility] XR CHEST PORTABLEOrdered By: Radu Worrell on 10-19-2020 No acute cardiopulmonary disease [employer] Phone: EXAMINATION: ONE XRA Y VIEW OF [...] bony abnormalities. The hilar structures are normal. [employer] Phone: Romero, pn Incoming Radiant Results From [employer] - 10/19/2020 7:02 PM EDT EXAMINATION: ONE [...] are normal. IMPRESSION: No acute cardiopulmonary disease [employer] Phone: [employer] Phone: ANION GAPon 08-05-2020 Anion gap [Moles/Vol] 8.0 mmol/L Normal 8.0-16.0 [facility] Comment on above: Result Comment: ANIO N GAP = Sodium -(Chloride + CO2) Performed By: #### C BCWD, BMP, MG, ANION, EGFR1 #### [facility] [employer] [address] [place] [address] Anion GapOrdered By: Jack Mensah on 08-05-2020 Anion gap [Moles/Vol] 8.0 mmol/L 8.0 - 16.0 meq/L [employer] Phone: Comment on above: ANION GAP = Sodium - (Chloride + CO2) Performed at [facility] [employer] [facility] [address] [place] [address] BASIC METABOL PANELon 2020 Calcium [Mass/Vol] 9.3 mg/dL Normal 8.5-10.5 [facility] Comment on above: Performed By: #### C BCWD, BMP, MG, ANION, EGFR1 #### [facility] [address] [place] [address] Chloride [Moles/Vol] 107 mmol/L Normal 98-111 [facility] Comment on above: Performed By: #### C BCWD, BMP, MG, ANION, EGFR1 #### [facility] [address] [place] [address] CO2 [Moles/Vol] 23 mmol/L Normal 23-33 [facility] Comment on above: Performed By: #### C BCWD, BMP, MG, ANION, EGFR1 #### [facility] [employer] [address] [place] [address] Creatinine [Mass/Vol] 0.6 mg/dL Normal 0.4-1.2 [facility] Comment on above: Performed By: #### C BCWD, BMP, MG, ANION, EGFR1 #### [facility] [employer] [facility] [address] [place] [address] Glucose [Mass/Vol] 101 mg/dL Normal 70-108 [facility] Comment on above: Performed By: #### C BCWD, BMP, MG, ANION, EGFR1 #### [facility] [employer] [facility] [address] [place] [address] Potassium [Moles/Vol] 3.8 mmol/L Normal 3.5-5.2 [facility] Comment on above: Performed By: #### C BCWD, BMP, MG, ANION, EGFR1 #### [facility] [employer] [address] [place] [address] Sodium [Moles/Vol] 138 mmol/L Normal 135-145 [facility] Comment on above: Performed By: #### C BCWD, BMP, MG, ANION, EGFR1 #### [facility] [employer] [address] [address] Urea nitrogen [Mass/Vol] 12 mg/dL Normal 7-22 [facility] Comment on above: Performed By: #### C BCWD, BMP, MG, ANION, EGFR1 #### [employer] [address] [place] [address] Basic Metabolic PanelOrdered By: Jack Mensah on 08-05-2020 Calcium [Mass/Vol] 9.3 mg/dL 8.5 - 10. 5 mg/dL [employer] Phone: Comment on above: Performed at [facility] [address] [place] [address] Chloride [Moles/Vol] 107 mmol/L 98 - 11 1 meq/L [employer] Phone: CO2 [Moles/Vol] 23 mmol/L 23 - 33 meq/L [employer] Work Phone: Creatinine [Mass/Vol] 0.6 mg/dL 0.4 - 1.2 mg/dL [employer] Phone: Glucose [Mass/Vol] 101 mg/dL 70 - 108 mg/dL [employer] Phone: Potassium [Moles/Vol] 3.8 mmol/L 3.5 - 5.2 meq/L [employer] Phone: Sodium [Moles/Vol] 138 mmol/L 135 - 145 meq/L [employer] Phone: Urea nitrogen (BldV) [Mass/Vol] 12 mg/dL 7 - 22 mg/dL [employer] Phone: CBC Auto DifferentialOrdered By: Jack Mensah on 08-05-2020 Basophils (Bld) [#/Vol] 0.1 10*3/uL [employer] Phone: Basophils/100 WBC (Bld) 1.4 % [employer] Phone: Eosinophils Absolute 0.3 [employer] Phone: Eosinophils/100 WBC (Bld) 3.3 % [employer] Phone: Erythrocyte distribution width (RBC) [Ratio] 13.2 % 11.5 - 14.5 % [employer] Phone: Erythrocyte distribution width (RBC) [Ratio] 47.8 fL High 35.0 - 45.0 fL [employer] Phone: Hematocrit (Bld) [Volume fraction] 42.3 % 37.0 - 47.0 % [employer] Phone: Hemoglobin.gastrointes tinal spec 1 Ql (Stl) 13.1 [employer] [facility] Work Phone: Immature Grans (Abs) 0.04 [employer] Phone: Immature granulocytes/100 WBC (Bld) 0.5 % [employer] Work Phone: Interpretation and review of laboratory results Abnormal [employer] Work Phone: Lymphocytes Absolute 2.3 [employer] Work Phone: Lymphocytes/100 WBC (Bld) 29.4 % [employer] Phone: MCH (RBC) [Entitic mass] 30.5 pg 26.0 - 33.0 pg [facility] Phone: MCHC (RBC) [Mass/Vol] 31.0 g/dL Low [employer] Work Phone: MCV (RBC) [Entitic vol] 98.6 fL 81.0 - 99.0 fL [facility] Phone: Monocytes Absolute 0.7 [facility] Phone: Monocytes/100 WBC (Bld) 9.4 % [facility] Work Phone: nRBC 0 /100 wbc [facility] Phone: Comment on above: Performed at [facility] [address] [place] [address] Platelet mean volume (Bld) [Entitic vol] 8.9 fL Low 9.4 - 12.4 fL [facility] Phone: Platelets (Bld) [#/Vol] 242 10*3/uL [employer] Work Phone: RBC (Bld) [#/Vol] 4.29 10*6/uL [employer] Work Phone: Segmented neutrophils/100 WBC (Bld) 56 % [employer] Phone: Segs Absolute 4.3 [employer] Work Phone: WBC (Bld) [#/Vol] 7.7 10*3/uL [employer] Phone: CBC WITH DIFFERENTIALon 07-10 ABS BASOPHILS 0.1 thou/mm3 Normal 0.0-0.1 [facility] Comment on above: Performed By: #### C BCWD, BMP, MG, ANION, EGFR1 #### [address] [address] ABS EOSINOPHILS 0.3 thou/mm3 Normal 0.0-0.4 [facility] Comment on above: Performed By: #### C BCWD, BMP, MG, ANION, EGFR1 #### [address] [address] ABS IMMATURE GRANS (IG) 0.04 thou/mm3 Normal 0.00-0.07 [facility] Comment on above: Performed By: #### C BCWD, BMP, MG, ANION, EGFR1 #### [address] [address] ABS LYMPHOCYTES 2.3 thou/mm3 Normal 1.0-4.8 [facility] Comment on above: Performed By: #### C BCWD, BMP, MG, ANION, EGFR1 #### [address] [address] ABS MONOCYTES 0.7 thou/mm3 Normal 0.4-1.3 [facility] Comment on above: Performed By: #### C BCWD, BMP, MG, ANION, EGFR1 #### [address] [address] ABS NEUTROPHILS 4.3 thou/mm3 Normal 1.8-7.7 [facility] Comment on above: Performed By: #### C BCWD, BMP, MG, ANION, EGFR1 #### [address] [address] Basophils/100 WBC (Bld) 1.4 % Normal [facility] Comment on above: Performed By: #### C BCWD, BMP, MG, ANION, EGFR1 #### [address] [address] Eosinophils/100 WBC (Bld) 3.3 % Normal [facility] Comment on above: Performed By: #### C BCWD, BMP, MG, ANION, EGFR1 #### [address] [address] Erythrocyte distribution width (RBC) [Ratio] 13.2 % Normal 11.5-14.5 [facility] Comment on above: Performed By: #### C BCWD, BMP, MG, ANION, EGFR1 #### [address] [address] Hematocrit (Bld) [Volume fraction] 42.3 % Normal 37.0-47.0 [facility] Comment on above: Performed By: #### C BCWD, BMP, MG, ANION, EGFR1 #### [facility] [address] [place] [address] Hemoglobin (Bld) [Mass/Vol] 13.1 g/dL Normal 12.0-16.0 [facility] Comment on above: Performed By: #### C BCWD, BMP, MG, ANION, EGFR1 #### [address] [address] IMMATURE GRANS (IG) 0.5 % Normal [facility] Comment on above: Performed By: #### C BCWD, BMP, MG, ANION, EGFR1 #### [address] [address] Lymphocytes/100 WBC (Bld) 29.4 % Normal [facility] Comment on above: Performed By: #### C BCWD, BMP, MG, ANION, EGFR1 #### [address] [address] MCH (RBC) [Entitic mass] 30.5 pg Normal 26.0-33.0 [facility] Comment on above: Performed By: #### C BCWD, BMP, MG, ANION, EGFR1 #### [address] [address] MCHC (RBC) [Mass/Vol] 31.0 g/dL Low 32.2-35.5 [facility] Comment on above: Performed By: #### C BCWD, BMP, MG, ANION, EGFR1 #### [facility] [address] [place] [address] MCV (RBC) [Entitic vol] 98.6 fL Normal 81.0-99.0 [facility] Comment on above: Performed By: #### C BCWD, BMP, MG, ANION, EGFR1 #### [facility] [address] [place] [address] Monocytes/100 WBC (Bld) 9.4 % Normal [facility] Comment on above: Performed By: #### C BCWD, BMP, MG, ANION, EGFR1 #### [employer] [address] [place] [address] Neutrophils/100 WBC (Bld) 56.0 % Normal [facility] Comment on above: Performed By: #### C BCWD, BMP, MG, ANION, EGFR1 #### [facility] [address] [place] [address] NRBC 0 /100 wbc Normal [facility] Comment on above: Performed By: #### C BCWD, BMP, MG, ANION, EGFR1 #### [employer] [address] [place] [address] PLATELET 242 thou/mm3 Normal 130-400 [facility] Comment on above: Performed By: #### C BCWD, BMP, MG, ANION, EGFR1 #### [employer] [address] [place] [address] Platelet mean volume (Bld) [Entitic vol] 8.9 fL Low 9.4-12.4 [facility] Comment on above: Performed By: #### C BCWD, BMP, MG, ANION, EGFR1 #### [employer] [address] [place] [address] RBC 4.29 mill/mm3 Normal 4.20-5.40 [facility] Comment on above: Performed By: #### C BCWD, BMP, MG, ANION, EGFR1 #### [employer] [address] [place] [address] RDW-SD 47.8 fL High 35.0-45.0 [facility] Comment on above: Performed By: #### C BCWD, BMP, MG, ANION, EGFR1 #### [facility] [address] [place] [address] WBC 7.7 thou/mm3 Normal 4.8-10.8 [facility] Comment on above: Performed By: #### C BCWD, BMP, MG, ANION, EGFR1 #### [facility] [address] [place] [address] Culture, Reflexed, UrineOrde red By: Darien Ferrara on 08-05-2020 Interpretation and review of laboratory results Abnormal [employer] Phone: Organism Mixed Growth Abnormal [facility] Phone: Urine Culture Reflex Mixed growth. The mixture of organisms present represents both organisms that may cause urinary tract infections and organisms that are not a common cause of urinary tract infections and are possibly skin hermilo or distal urethral hermilo. Abnormal [employer] Phone: Source: urine, clean catch Site: Current Antibiotics: not stated [facility] Phone: GFR, ESTIMATEDon 08-05-2020 GFR/1.73 sq M.predicted MDRD (S/P/Bld) [Vol rate/Area] mL/min/{1.73_m2} Normal [facility] Comment on above: Result Comment: Stag e [...] C BCWD, BMP, MG, ANION, EGFR1 #### [facility] [address] [place] [address] GLUCOSE POCon 08-05-2020 Glucose [Mass/Vol] 88 mg/dL Normal 70-108 [facility] Comment on above: Performed By: #### P OCGL #### [facility] [address] [place] [address] Glomerular Filtration Rate, EstimatedOrdered By: Jack Mensah on 08-05-2020 GFR/1.73 sq M.predicted MDRD (S/P/Bld) [Vol rate/Area] mL/min/{1.73_m2} ml/min/1.73m 2 [employer] Phone: Comment on above: Stage Description GF [...] Vol. 139 (2) pg 137-147. Performed at [facility] [address] [place] [address] MAGNESIUMon 08-05-2020 Magnesium [Mass/Vol] 2.0 mg/dL Normal 1.6-2.4 [facility] Comment on above: Performed By: #### C BCWD, BMP, MG, ANION, EGFR1 #### [facility] [address] [place] [address] MagnesiumOrdered By: Jack Mensah on 08-05-2020 Magnesium [Mass/Vol] 2.0 mg/dL 1.6 - 2 .4 mg/dL [facility] Phone: Comment on above: Performed at [facility] [place] [address] [place] [address] POCT GlucoseOrdered By: Lexie Garcia on 08-05-2020 Glucose [Mass/Vol] 88 mg/dL 70 - 108 mg/dl [facility] Phone: Comment on above: Performed at [facility] [place] [address] [place] [address] MRI BRAIN W WO CONTRASTOrder ed By: [...] Dr. Gracie Kruse on 08/04/2020 1:28 PM [facility] [employer] Phone: Romero, Wcoh Incoming Radiant Results From [employer] - 08/04/2020 1:30 PM EDT PROCEDURE: MRI [...] Dr. Gracie Kruse on 08/04/2020 1:28 PM [facility] [employer] Phone: REFLEX CULT URon 08-04-2020 REFLEX CULT UR MICROBIOLOGY REPORT [facility], [address] [place] [address], [address] PATIENT: LILLIANA PATEL LOCATION: [facility] -A : 1940 AGE: 79 SEX: F ADM: 08/04/20 Att. Physician: DARLYN GARCIA Order Id: [id number] Req. Physician: DARIEN FERRARA Source: urine, clean [...] [facility] Comment on above: Performed By: #### U RCS2 #### [facility] [employer] [address] [place] [address] T4 (FREE)on 08-04-2020 T4 (FREE) 1.00 ng/dL Normal 0.93-1.76 [facility] Comment on above: Performed By: #### C BCWD, BMP, MG, ANION, EGFR1 #### [facility] [address] [place] [address] T4, FreeOrdered By: Shirley Ferrara on 08-04-2020 Free T4 [Mass/Vol] 1 ng/dL 0.93 - 1. 76 ng/dL [employer] Work Phone: Comment on above: Performed at [facility] [address] [place] [address] TSH W/ REFLEX FT4on 08-05-19 21 TSH THIRD GENERATION 5.250 uIU/mL High 0.400-4.200 [facility] Comment on above: Performed By: #### T SHRF, VB12F, FT4 #### [facility] [address] [place] [address] TSH with ReflexOrdered By: Jessica Ferrara on 08-04-2020 Interpretation and review of laboratory results Abnormal [employer] Work Phone: TSH Qn 5.250 m[IU]/L High [facility] Work Phone: Comment on above: Performed at [facility] [place] [address] [place] [address] UA WITH MICROSCOPICon 2020 BACTERIA FEW Normal FEW/NONE SEEN [facility] Comment on above: Performed By: #### U RCS2 #### [facility] [address] [place] [address] CASTS NONE SEEN Normal NONE SEEN [facility] Comment on above: Performed By: #### U RCS2 #### [facility] [address] [place] [address] CASTS 2 NONE SEEN Normal NONE SEEN [facility] Comment on above: Performed By: #### U RCS2 #### [facility] [address] [place] [address] Crystals LM Nom (Urine sed) NONE SEEN Normal NONE SEEN [facility] Comment on above: Performed By: #### U RCS2 #### [facility] [address] [place] [address] EPITHELIAL 3 /hpf Normal 3-5/hpf [facility] Comment on above: Performed By: #### U RCS2 #### [facility] [address] [place] [address] MISCELLANEOUS 2 NONE SEEN Normal [facility] Comment on above: Performed By: #### U RCS2 #### [facility] [address] [place] [address] RBC 0 /hpf Normal 0-2/hpf [facility] Comment on above: Performed By: #### U RCS2 #### [facility] [address] [place] [address] RENAL EPITHELIAL NONE SEEN Normal NONE SEEN [facility] Comment on above: Performed By: #### U RCS2 #### [facility] [address] [place] [address] WBC 25 /hpf Normal 0-4/hpf [facility] Comment on above: Performed By: #### U RCS2 #### [facility] [address] [place] [address] [place] [address] YEAST NONE SEEN Normal NONE SEEN [facility] Comment on above: Performed By: #### U RCS2 #### [facility] [address] [place] [address] Bilirubin Ql (U) Negative Normal NEGATIVE [facility] Comment on above: Performed By: #### U RCS2 #### [facility] [address] [facility] [place] [address] CHARACTER CLEAR Normal CLEAR-SL CLOUD [facility] Comment on above: Performed By: #### U RCS2 #### [facility] [address] [facility] [place] [address] Color (U) YELLOW Normal STRAW-YELLOW [facility] Comment on above: Performed By: #### U RCS2 #### [facility] [address] [facility] [place] [address] Glucose Ql (U) Negative Normal NEGATIVE [facility] Comment on above: Performed By: #### U RCS2 #### [facility] [address] [place] [address], [place] [address] Hemoglobin Ql (U) TRACE Abnormal NEGATIVE [facility] Comment on above: Performed By: #### U RCS2 #### [facility] [address] [place] [address], [place] [address] Ketones Ql (U) Negative Normal NEGATIVE [facility] Comment on above: Performed By: #### U RCS2 #### [facility] [address] [place] [address], [place] [address] LEUKOCYTES LARGE Abnormal NEGATIVE [facility] Comment on above: Performed By: #### U RCS2 #### [facility] [address] [place] [address], [place] [address] Nitrite Ql (U) Negative Normal NEGATIVE [facility] Comment on above: Performed By: #### U RCS2 #### [facility] [address] [place] [address], [place] [address] pH (U) 7.0 [pH] Normal 5.0 - 9.0 [facility] Comment on above: Performed By: #### U RCS2 #### [facility] [address] [place] [address], [place] [address] Protein Ql (U) Negative Normal NEGATIVE [facility] Comment on above: Performed By: #### U RCS2 #### [facility] [address] [facility] [place] [address] Specific gravity (U) [Rel density] 1.012 Normal 1.002-1.030 [facility] Comment on above: Performed By: #### U RCS2 #### [facility] [address] [place] [address] Urobilinogen Qn (U) 0.2 {Kannan'U}/dL Normal 0.0 - 1. 0 [facility] Comment on above: Performed By: #### U RCS2 #### [facility] [address] [place] [address] Urine with Reflexed MicroOrd ered By: Darien Ferrara on 08-04-2020 Bacteria, UA FEW FEW/NONE SEEN /hpf [facility] Work Phone: Bilirubin Urine Negative NEGATIVE [employer] [facility] Work Phone: Blood, Urine TRACE Abnormal NEGATIVE [facility] Work Phone: CASTS 2 NONE SEEN NONE SEEN /lpf [employer] Work Phone: Casts UA NONE SEEN NONE SEEN /lpf [facility] Work Phone: Character, Urine CLEAR CLEAR-SL CLOUD [facility] Work Phone: Color, UA YELLOW STRAW-YELLOW [facility] Work Phone: Crystals, UA NONE SEEN NONE SEEN [facility] Work Phone: Epithelial Cells, UA 3-5 3-5/hpf /hpf [facility] Work Phone: Glucose, Ur Negative NEGATIVE mg/dl [facility] [employer] Work Phone: Interpretation and review of laboratory results Abnormal [facility] Work Phone: Ketones Ql (U) Negative NEGATIVE [employer] Work Phone: Leukocyte esterase Test strip Ql (U) LARGE Abnormal NEGATIVE [facility] Work Phone: MISCELLANEOUS 2 NONE SEEN [employer] [facility] Work Phone: Comment on above: Performed at [facility] [address] [place] [address] Nitrite, Urine Negative NEGATIVE [facility] Work Phone: pH, UA 7.0 [employer] Phone: Protein, UA Negative NEGATIVE [employer] Phone: RBC, UA 0-2 0-2/hpf /hpf [employer] Phone: Renal Epithelial, UA NONE SEEN NONE SEEN [employer] Phone: Specific Rhine, Urine 1.012 [employer] Phone: Urobilinogen, Urine 0.2 [employer] Phone: WBC, UA 25-50 0-4/hpf /hpf [employer] Phone: Yeast, UA NONE SEEN NONE SEEN [employer] Phone: VITAMIN B12 FOLATEon 021 Cobalamin (Vitamin B12) [Mass/Vol] 1839 pg/mL High 211-911 [facility] Comment on above: Performed By: #### C BCWD, BMP, MG, ANION, EGFR1 #### [facility] [address] [place] [address] FOLATE 14.6 ng/mL Normal 4.8-24.2 [facility] Comment on above: Performed By: #### C BCWD, BMP, MG, ANION, EGFR1 #### [facility] [address] [place] [address] Vitamin B12 & folateOrdered By: Darien Ferrara on 08-04-2020 Cobalamin (Vitamin B12) [Mass/Vol] 1839 pg/mL High 211 - 911 pg/mL [employer] Phone: Folate 14.6 ng/mL 4.8 - 24.2 ng/mL [employer] Phone: Comment on above: Performed at [facility] [address] [place] [address] Interpretation and review of laboratory results Abnormal [employer] Phone: VL DUP UPPER EXTREMITY VENOU S RIGHTon 05-13-2020 [employer] [facility] l Vascular Upper Extremities Veins Procedure Patient Name DANA Date of Study 05/13/2020 LILLIANA Salmeron Date of 1940 Gender Female Age 79 year(s) Race Room Number Corporate ID [id number] # Patient Acct [id number] # MR # [id number] Cell Stripper CELSA Mensah T Interpreting Physician Reymundo Barbosa [...] !Phasic ! ! + ---+ ----+ ------+ [facility] [place], [place] Romero, Sveta Incoming Cardio Results From [facility]/ - 05/13/2020 12:29 PM [facility] Vascular Upper Extremities Veins Procedure Patient Name DANA Date of Study 05/13/2020 LILLIANA Jaron Date of 1940 Gender Female Age 79 year(s) Race Room Number Corporate ID [id number] # Patient Acct [id number] # MR # [id number] Cell Stripper Rodrick, RVT Karen Son RVT Interpreting Physician [...] ! ! + ---+ ----+ ------ + [place] CBC Auto Differentialon 02-08 Basophils (Bld) [#/Vol] 0.10 10*3/uL [place] Basophils/100 WBC (Bld) 1 % 0 - 2 % [place] Differential Type NOT REPORTED [place] Eosinophils (Bld) [#/Vol] 0.25 10*3/uL [facility] [place] Eosinophils/100 WBC (Bld) 3 % 1 - 4 % [place] Erythrocyte distribution width (RBC) [Ratio] 12.9 % 11.8 - 14.4 % [place] Hematocrit (Bld) [Volume fraction] 42.7 % 36.3 - 47.1 % [place] Hemoglobin (Bld) [Mass/Vol] 13.5 g/dL 11.9 - 15.1 g/dL [place] Immature granulocytes (Bld) [#/Vol] 1 % High 0 [place] Immature granulocytes (Bld) [#/Vol] 0.04 10*3/uL [place] Interpretation and review of laboratory results Abnormal [place] Lymphocytes (Bld) [#/Vol] 3.21 10*3/uL [place] Lymphocytes/100 WBC (Bld) 39 % 24 - 43 % [place] MCH (RBC) [Entitic mass] 31.0 pg 25.2 - 33.5 pg [place] MCHC (RBC) [Mass/Vol] 31.6 g/dL 28.4 - 34.8 g/dL [place] MCV (RBC) [Entitic vol] 97.9 fL 82.6 - 102.9 fL [place] Monocytes (Bld) [#/Vol] 0.62 10*3/uL [place] Monocytes/100 WBC (Bld) 8 % 3 - 12 % [place] Platelet mean volume (Bld) [Entitic vol] 9.4 fL 8.1 - 13.5 fL [place] Platelets (Bld) [#/Vol] 250 10*3/uL [place] Platelets (Bld) [#/Vol] NOT REPORTED [place] RBC (Bld) [#/Vol] 4.36 10*6/uL 3.95 - 5.1 1 m/uL [place] RBC morphology finding Nom (Bld) NOT REPORTED [place] Segmented neutrophils/100 WBC (Bld) 48 % 36 - 65 % [place] Segs Absolute 4.09 [place] WBC (Bld) [#/Vol] 0.0 10*3/uL 0.0 per 10 0 WBC [place] WBC (Bld) [#/Vol] 8.3 10*3/uL [place] WBC Morphology NOT REPORTED [place] Comprehensive Metabolic Pane uriel 02-25-2020 Albumin [Mass/Vol] 3.9 g/dL 3.5 - 5.2 g/dL [place] Albumin/Globulin [Mass ratio] 1.6 {ratio} [place] ALP [Catalytic activity/Vol] 60 U/L 35 - 104 U/L [place] ALT [Catalytic activity/Vol] 7 U/L 5 - 33 U/L [place] Anion gap [Moles/Vol] 7 mmol/L Low 9 - 17 mmol/L [place] AST [Catalytic activity/Vol] 14 U/L <32 [place] Bilirubin Ql (U) 0.52 mg/dL 0.3 - 1.2 mg/dL [place] Bun/Cre Ratio 11 [place] Calcium [Mass/Vol] 9.7 mg/dL 8.6 - 10. 4 mg/dL [place] Chloride [Moles/Vol] 105 mmol/L 98 - 10 7 mmol/L [place] CO2 [Moles/Vol] 27 mmol/L 20 - 31 mmol/L [place] Creatinine [Mass/Vol] 0.7 mg/dL 0.5 - 0.9 mg/dL [place] GFR >60 >60 mL/min [place] GFR Non- >60 >60 mL/min [place] Glucose [Mass/Vol] 95 mg/dL 70 - 99 mg/dL [place] Interpretation and review of laboratory results Abnormal [place] Potassium [Moles/Vol] 5.0 mmol/L 3.7 - 5.3 mmol/L [place] Protein [Mass/Vol] 6.3 g/dL Low 6.4 - 8.3 g/dL [place] Sodium [Moles/Vol] 139 mmol/L 135 - 144 mmol/L [place] Urea nitrogen [Mass/Vol] 8 mg/dL 8 - 23 mg/dL [place] Lipid Panelon 02-25-2020 Cholesterol [Mass/Vol] 162 mg/dL <200 [place] Comment on above: Cholesterol Guidelines: <200 Desirable 200-240 Borderline >240 Undesirable Cholesterol in HDL [Mass/Vol] 60 mg/dL >40 [place] Comment on above: HDL Guidelines: <40 Undesirable 40-59 Borderline >59 Desirable Cholesterol in LDL [Mass/Vol] 88 mg/dL 0 - 130 mg/dL [place] Comment on above: LDL Guidelines: <100 Desirable 100-129 Near to/above Desirable 130-159 Borderline >159 Undesirable Direct (measured) LDL and calculated LDL are not interchangeable tests. Cholesterol in VLDL [Mass/Vol] NOT REPORTED 1 - 30 mg/dL [place] Cholesterol.total/Chol esterol in HDL [Mass ratio] 2.7 {ratio} <5 [place] Triglyceride [Mass/Vol] 68 mg/dL <150 [place] Comment on above: Triglyceride Guidelines: <150 Desirable 150-199 Borderline 200-499 High >499 Very high Based on AHA Guidelines for fasting triglyceride, January 2012. Metabolic Panelon 02-25-2020 GFR/1.73 sq M predicted among non-blacks MDRD (S/P/Bld) [Vol rate/Area] [place] Comment on above: Stage 1: Some [...] body mass. Additional eGFR calculator available at: http://www.[employer]/multiple_crcl_2011.htm CBC Auto Differentialon 10-08 Basophils (Bld) [#/Vol] 0.07 10*3/uL [place] Basophils/100 WBC (Bld) 1 % 0 - 2 % [place] Differential Type NOT REPORTED [place] Eosinophils (Bld) [#/Vol] 0.20 10*3/uL [place] Eosinophils/100 WBC (Bld) 2 % 1 - 4 % [place] Erythrocyte distribution width (RBC) [Ratio] 13.2 % 11.8 - 14.4 % [place] Hematocrit (Bld) [Volume fraction] 43.8 % 36.3 - 47.1 % [place] Hemoglobin (Bld) [Mass/Vol] 13.6 g/dL 11.9 - 15.1 g/dL [place] Immature granulocytes (Bld) [#/Vol] 1 % High 0 [place] Immature granulocytes (Bld) [#/Vol] 0.05 10*3/uL [place] Interpretation and review of laboratory results Abnormal [place] Lymphocytes (Bld) [#/Vol] 3.08 10*3/uL [place] Lymphocytes/100 WBC (Bld) 32 % 24 - 43 % [place] MCH (RBC) [Entitic mass] 30.0 pg 25.2 - 33.5 pg [place] MCHC (RBC) [Mass/Vol] 31.1 g/dL 28.4 - 34.8 g/dL [place] MCV (RBC) [Entitic vol] 96.7 fL 82.6 - 102.9 fL [place] Monocytes (Bld) [#/Vol] 0.73 10*3/uL [place] Monocytes/100 WBC (Bld) 8 % 3 - 12 % [place] Platelet mean volume (Bld) [Entitic vol] 9.8 fL 8.1 - 13.5 fL [place] Platelets (Bld) [#/Vol] 278 10*3/uL [place] Platelets (Bld) [#/Vol] NOT REPORTED [place] RBC (Bld) [#/Vol] 4.53 10*6/uL 3.95 - 5.1 1 m/uL [place] RBC morphology finding Nom (Bld) NOT REPORTED [place] Segmented neutrophils/100 WBC (Bld) 56 % 36 - 65 % [place] Segs Absolute 5.63 [place] WBC (Bld) [#/Vol] 9.8 10*3/uL [place] WBC (Bld) [#/Vol] 0.0 10*3/uL 0.0 per 10 0 WBC [place] WBC Morphology NOT REPORTED [place] Comprehensive Metabolic Pane uriel 10-18-2019 Albumin [Mass/Vol] 4 g/dL 3.5 - 5.2 g/dL [place] Albumin/Globulin [Mass ratio] 1.4 {ratio} [place] ALP [Catalytic activity/Vol] 67 U/L 35 - 104 U/L [place] ALT [Catalytic activity/Vol] 13 U/L 5 - 33 U/L [place] Anion gap [Moles/Vol] 8 mmol/L Low 9 - 17 mmol/L [place] AST [Catalytic activity/Vol] 18 U/L <32 [place] Bilirubin Ql (U) 0.50 mg/dL 0.3 - 1.2 mg/dL [place] Bun/Cre Ratio 21 High [place] Calcium [Mass/Vol] 9.5 mg/dL 8.6 - 10. 4 mg/dL [place] Chloride [Moles/Vol] 107 mmol/L 98 - 10 7 mmol/L [place] CO2 [Moles/Vol] 28 mmol/L 20 - 31 mmol/L [place] Creatinine [Mass/Vol] 0.8 mg/dL 0.5 - 0.9 mg/dL [place] GFR >60 >60 mL/min [place] GFR Non- >60 >60 mL/min [place] Glucose [Mass/Vol] 110 mg/dL High 70 - 99 mg/dL [place] Interpretation and review of laboratory results Abnormal [place] Potassium [Moles/Vol] 5.6 mmol/L High 3.7 - 5.3 mmol/L [place] Protein [Mass/Vol] 6.9 g/dL 6.4 - 8.3 g/dL [place] Sodium [Moles/Vol] 143 mmol/L 135 - 144 mmol/L [place] Urea nitrogen [Mass/Vol] 17 mg/dL 8 - 23 mg/dL [place] Lipid Panelon 10-18-2019 Cholesterol [Mass/Vol] 149 mg/dL <200 [place] Comment on above: Cholesterol Guidelines: <200 Desirable 200-240 Borderline >240 Undesirable Cholesterol in HDL [Mass/Vol] 59 mg/dL >40 [place] Comment on above: HDL Guidelines: <40 Undesirable 40-59 Borderline >59 Desirable Cholesterol in LDL [Mass/Vol] 77 mg/dL 0 - 130 mg/dL [place] Comment on above: LDL Guidelines: <100 Desirable 100-129 Near to/above Desirable 130-159 Borderline >159 Undesirable Direct (measured) LDL and calculated LDL are not interchangeable tests. Cholesterol in VLDL [Mass/Vol] NOT REPORTED 1 - 30 mg/dL [place] Cholesterol.total/Chol esterol in HDL [Mass ratio] 2.5 {ratio} <5 [place] Triglyceride [Mass/Vol] 63 mg/dL <150 [place] Comment on above: Triglyceride Guidelines: <150 Desirable 150-199 Borderline 200-499 High >499 Very high Based on AHA Guidelines for fasting triglyceride, January 2012. Metabolic Panelon 10-18-2019 GFR/1.73 sq M predicted among non-blacks MDRD (S/P/Bld) [Vol rate/Area] [place] Comment on above: Stage 1: Some [...] body mass. Additional eGFR calculator available at: http://www.[employer]/multiple_crcl_2012.htm CBC Auto DifferentialOrdered By: Aye Nevarez on 04-22-2019 [employer] # 0.25 [facility] Work Phone: [employer] Immature Granulocyte 0.04 [facility] Work Phone: [employer] Lymph # 3.17 [facility] Work Phone: [employer] Hale # 0.67 [facility] Work Phone: Basophils (Bld) [#/Vol] 0.10 10*3/uL [employer] Work Phone: Basophils/100 WBC (Bld) 1 % 0 - 2 % [employer] Phone: Differential Type NOT REPORTED [employer] Phone: Eosinophils/100 WBC (Bld) 3 % 1 - 4 % [employer] Phone: Erythrocyte distribution width (RBC) [Ratio] 12.6 % 11.8 - 14.4 % [employer] Phone: Hematocrit (Bld) [Volume fraction] 43.9 % 36.3 - 47.1 % [employer] Phone: Hemoglobin (Bld) [Mass/Vol] 13.7 g/dL 11.9 - 15.1 g/dL [employer] Phone: Immature granulocytes/100 WBC (Bld) 1 % High 0 [employer] Phone: Interpretation and review of laboratory results Abnormal [employer] Phone: Lymphocytes/100 WBC (Bld) 36 % 24 - 43 % [employer] Phone: MCH (RBC) [Entitic mass] 30.0 pg 25.2 - 33.5 pg [employer] Phone: MCHC (RBC) [Mass/Vol] 31.2 g/dL 28.4 - 34.8 g/dL [employer] Phone: MCV (RBC) [Entitic vol] 96.3 fL 82.6 - 102.9 fL [employer] Phone: Monocytes/100 WBC (Bld) 8 % 3 - 12 % [employer] Phone: NRBC Automated 0.0 0.0 per 100 WBC [employer] Phone: Platelet Estimate NOT REPORTED [employer] Phone: Platelet mean volume (Bld) [Entitic vol] 9.1 fL 8.1 - 13.5 fL [employer] Phone: Platelets (Bld) [#/Vol] 308 10*3/uL [employer] Phone: RBC (Bld) [#/Vol] 4.56 10*6/uL 3.95 - 5.1 1 m/uL [employer] Phone: RBC morphology finding Nom (Bld) NOT REPORTED [employer] Phone: Segmented neutrophils/100 WBC (Bld) 51 % 36 - 65 % [employer] Phone: Segs Absolute 4.47 [facility] Work Phone: WBC (Bld) [#/Vol] 8.7 10*3/uL [employer] Phone: WBC Morphology NOT REPORTED [employer] [facility] Work Phone: Comprehensive Metabolic Pane lOrdered By: Aye Nevarez on 04-22-2019 Albumin [Mass/Vol] 4 g/dL 3.5 - 5.2 g/dL [employer] Phone: Albumin/Globulin [Mass ratio] 1.3 {ratio} [employer] Phone: ALP [Catalytic activity/Vol] 71 U/L 35 - 104 U/L [employer] Phone: ALT [Catalytic activity/Vol] 11 U/L 5 - 33 U/L [employer] Phone: Anion gap [Moles/Vol] 10 mmol/L 9 - 17 mmol/L [employer] Phone: AST [Catalytic activity/Vol] 16 U/L <32 [employer] Phone: Bilirubin [Mass/Vol] 0.43 mg/dL 0.3 - 1 .2 mg/dL [employer] Phone: Bun/Cre Ratio 19 August Work Phone: Calcium [Mass/Vol] 9.7 mg/dL 8.6 - 10. 4 mg/dL [employer] Phone: Chloride [Moles/Vol] 102 mmol/L 98 - 10 7 mmol/L [employer] Phone: CO2 [Moles/Vol] 26 mmol/L 20 - 31 mmol/L [employer] Phone: Creatinine [Mass/Vol] 0.69 mg/dL 0.5 - 0.9 mg/dL [employer] Phone: GFR >60 >60 mL/min [employer] Phone: GFR Comment [employer] Phone: Comment on above: Average GFR for 70 o r more years old: 75 mL/min/1.73sq m Chronic Kidney Disease: <60 mL/min/1.73sq m Kidney failure: <15 mL/min/1.73sq m eGFR calculated using average adult body mass. Additional eGFR calculator available at: http://www.Gu[employer]/multiple_crcl_2012.htm GFR Non- >60 >60 mL/min [employer] Phone: GFR Staging [employer] Phone: Comment on above: Stage 1: Some kidney damage normal GFR Stage 2: Mild kidney damage GFR 60-89 Stage 3: Moderate kidney damage GFR 30-59 Stage 4: Severe kidney damage GFR 15-29 Stage 5: Severe kidney damage GFR <15 ESRD - chronic treatment by dialysis or transplant Glucose [Mass/Vol] 104 mg/dL High 70 - 99 mg/dL [employer] Phone: Interpretation and review of laboratory results Abnormal [employer] Phone: Potassium [Moles/Vol] 4.7 mmol/L 3.7 - 5.3 mmol/L [employer] Phone: Protein [Mass/Vol] 7.1 g/dL 6.4 - 8.3 g/dL [employer] Phone: Sodium [Moles/Vol] 138 mmol/L 135 - 144 mmol/L [employer] Phone: Urea nitrogen [Mass/Vol] 13 mg/dL 8 - 23 mg/dL [employer] Phone: Lipid PanelOrdered By: Aye Nevarez on 04-22-2019 Cholesterol [Mass/Vol] 155 mg/dL <200 [employer] Phone: Comment on above: Cholesterol Guidelines: <200 Desirable 200-240 Borderline >240 Undesirable Cholesterol in HDL [Mass/Vol] 52 mg/dL >40 [employer] Phone: Comment on above: HDL Guidelines: <40 Undesirable 40-59 Borderline >59 Desirable Cholesterol in LDL [Mass/Vol] 80 mg/dL 0 - 130 mg/dL [employer] Phone: Comment on above: LDL Guidelines: <100 Desirable 100-129 Near to/above Desirable 130-159 Borderline >159 Undesirable Direct (measured) LDL and calculated LDL are not interchangeable tests. Cholesterol.total/Chol esterol in HDL [Mass ratio] 3 {ratio} <5 [employer] Phone: Triglyceride [Mass/Vol] 114 mg/dL <150 [employer] Phone: Comment on above: Triglyceride Guidelines: <150 Desirable 150-199 Borderline 200-499 High >499 Very high Based on AHA Guidelines for fasting triglyceride, January 2012. VLDL NOT REPORTED 1 - 30 mg/dL [employer] Phone: MRI BRAIN WO CONTRASTon Chronic microvascula r disease without acute intracranial abnormality. Scattered foci of blooming artifact on susceptibility weighted imaging that is nonspecific and may relate to hypertensive microangiopathy versus amyloid angiopathy. [employer]- [place], [place] EXAMINATION: MRI OF THE BRAIN WITHOUT [...] The soft tissues demonstrate no acute abnormality. [facility]- [place], [place] Rom[place], pn Incoming Radiant Results From [employer] - 02/12/2019 2:18 PM EST EXAMINATION: MRI [...] relate to hypertensive microangiopathy versus amyloid angiopathy. [place] TSH without Reflexon 019 TSH Qn 4.31 m[IU]/L [place] Comprehensive Metabolic Pane uriel 12-26-2018 Albumin [Mass/Vol] 3.8 g/dL 3.5 - 5.2 g/dL [place] Albumin/Globulin [Mass ratio] 1.3 {ratio} [place] ALP [Catalytic activity/Vol] 72 U/L 35 - 104 U/L [place] ALT [Catalytic activity/Vol] 9 U/L 5 - 33 U/L [place] Anion gap [Moles/Vol] 11 mmol/L 9 - 17 mmol/L [place] AST [Catalytic activity/Vol] 14 U/L <32 [place] Bilirubin Ql (U) 0.43 mg/dL 0.3 - 1.2 mg/dL [place] Bun/Cre Ratio 14 [place] Calcium [Mass/Vol] 9.5 mg/dL 8.6 - 10. 4 mg/dL [place] Chloride [Moles/Vol] 102 mmol/L 98 - 10 7 mmol/L [place] CO2 [Moles/Vol] 24 mmol/L 20 - 31 mmol/L [place] Creatinine [Mass/Vol] 0.74 mg/dL 0.5 - 0.9 mg/dL [place] GFR >60 >60 mL/min [place] GFR Non- >60 >60 mL/min [place] Glucose [Mass/Vol] 110 mg/dL High 70 - 99 mg/dL [place] Interpretation and review of laboratory results Abnormal [place] Potassium [Moles/Vol] 4.8 mmol/L 3.7 - 5.3 mmol/L [place] Protein [Mass/Vol] 6.8 g/dL 6.4 - 8.3 g/dL [place] Sodium [Moles/Vol] 137 mmol/L 135 - 144 mmol/L [place] Urea nitrogen [Mass/Vol] 10 mg/dL 8 - 23 mg/dL [place] Lipid Panelon 12-26-2018 Cholesterol [Mass/Vol] 175 mg/dL <200 [place] Comment on above: Cholesterol Guidelines: <200 Desirable 200-240 Borderline >240 Undesirable Cholesterol in HDL [Mass/Vol] 51 mg/dL >40 [place] Comment on above: HDL Guidelines: <40 Undesirable 40-59 Borderline >59 Desirable Cholesterol in LDL [Mass/Vol] 106 mg/dL 0 - 130 mg/dL [place] Comment on above: LDL Guidelines: <100 Desirable 100-129 Near to/above Desirable 130-159 Borderline >159 Undesirable Direct (measured) LDL and calculated LDL are not interchangeable tests. Cholesterol in VLDL [Mass/Vol] NOT REPORTED 1 - 30 mg/dL [place] Cholesterol.total/Chol esterol in HDL [Mass ratio] 3.4 {ratio} <5 [place] Triglyceride [Mass/Vol] 90 mg/dL <150 [place] Comment on above: Triglyceride Guidelines: <150 Desirable 150-199 Borderline 200-499 High >499 Very high Based on AHA Guidelines for fasting triglyceride, January 2012. Metabolic Panelon 12-26-2018 GFR/1.73 sq M predicted among non-blacks MDRD (S/P/Bld) [Vol rate/Area] [place] Comment on above: Stage 1: Some [...] body mass. Additional eGFR calculator available at: http://www.[employer]/multiple_crcl_2011.htm Vital Signs Date Time Vital Sign Value Performing Clinician Faci lity 10-20-2020 18:30-0400 Body temperature 98.6 [degF] Radu Worrell MD Work Phone: [employer] Work Phone: 10-20-2020 18:30-0400 Diastolic blood pressure 53 mm[Hg] Radu Worrell MD Work Phone: [employer] Work Phone: 10-20-2020 18:30-0400 Heart rate 77 /min Radu Worrell MD Work Phone: [employer] Work Phone: 10-20-2020 18:30-0400 Respiratory rate 15 /min Radu Worrell MD Work Phone: [employer] Work Phone: 10-20-2020 18:30-0400 SaO2% (BldA) [Mass fraction] 96 % Radu Worrell MD Work Phone: [employer] Work Phone: 10-20-2020 18:30-0400 Systolic blood pressure 120 mm[Hg] Radu Worrell MD Work Phone: [employer] Work Phone: 10-20-2020 08:43-0400 Body height 149.9 cm Radu Worrell MD Work Phone: [employer] Work Phone: 10-20-2020 08:30-0400 Body mass index (BMI) [Ratio] 32.03 kg/m2 Radu Worrell MD Work Phone: [employer] Work Phone: 10-20-2020 08:30-0400 Body weight 71.94 kg Radu Worrell MD Work Phone: [employer] Work Phone: 08-05-2020 11:44-0400 Body temperature 98.8 [degF] Jungsik Kin DO Work Phone: [employer] Work Phone: 08-05-2020 11:44-0400 Diastolic blood pressure 66 mm[Hg] Jungsik Kin DO Work Phone: [employer] Work Phone: 08-05-2020 11:44-0400 Heart rate 80 /min Jungsik Kin DO Work Phone: [employer] Work Phone: 08-05-2020 11:44-0400 Respiratory rate 18 /min Jungsik Kin DO Work Phone: [employer] Work Phone: 08-05-2020 11:44-0400 SaO2% (BldA) [Mass fraction] 98 % Jungsik Kin DO Work Phone: [employer] Work Phone: 08-05-2020 11:44-0400 Systolic blood pressure 146 mm[Hg] Jungsik Kin DO Work Phone: [employer] Work Phone: 08-04-2020 00:52-0400 Body height 149.9 cm [employer]ik Kin DO Work Phone: [employer] Work Phone: 08-04-2020 00:52-0400 Body mass index (BMI) [Ratio] 32.74 kg/m2 Jungsik Kin DO Work Phone: [employer] Work Phone: 08-04-2020 00:52-0400 Body weight 73.53 kg Jungsik Kin DO Work Phone: [employer] Phone: Encounters Encounter Date Encounter Type Care Provider Facility Start: 05-09-2023 End: 05-10-2023 [facility] [address] Start: 07-18-2022 End: 07-19-2022 ambulatory KEVIN STEINER Facility:H1 Start: 07-08-2022 End: 07-08-2022 ambulatory ANN GEOFFREYDAVID ZHOU . Facility:[facility]1 Start: 09-23-2021 End: 09-24-2021 ambulatory AYE NEVAREZ [facility] Start: 09-23-2021 End: 09-23-2021 Subsequent hospital visit by physician Aye Nevarez DO Work Phone: [facility] Start: 04-28-2021 End: 04-29-2021 ambulatory [facility] [place] [facility] Start: 10-19-2020 End: 10-21-2020 Evaluation and management of inpatient AYE Thomas [facility] Start: 10-19-2020 End: 10-20-2020 Evaluation and management of inpatient Radu Worrell MD Work Phone: [facility] Comment on above: Generalized weakness (Primary Dx); Mild dehydration; Acute cystitis without hematuria Start: 08-04-2020 End: 08-05-2020 ambulatory [facility] Start: 08-04-2020 End: 08-05-2020 Subsequent hospital visit by physician Damián Sanderson DO Work Phone: [facility] 4A Start: 05-13-2020 End: 05-15-2020 Subsequent hospital visit by physician Latha [facility] Comment on above: Pain of right upper arm; Swollen vein Start: 02-25-2020 End: 02-25-2020 Subsequent hospital visit by physician Aye Nevarez [facility] Start: 10-18-2019 End: 10-18-2019 [facility] Start: 04-22-2019 End: 04-22-2019 Subsequent hospital visit by physician Aye Nevarez DO Work Phone: [facility] Start: 02-12-2019 End: 02-14-2019 Subsequent hospital visit by physician Latha Mri Scanner [facility] Comment on above: Lewy body dementia [...] Phone: Start: 10-19-2020 Urinalysis microscopic only Radu Wrorell MD Work Phone: Start: 10-19-2020 Urnls dip [...] Detail Author Start: 04-28-2022 Lipid panel Lipids [facility] Start: 12-09-2021 Influenza vaccination Flu vacc ine (Season Ended) [facility] Start: 10-20-2021 Creatinine measurement Creatinine mo [facility] [employer] Work Phone: Start: 10-20-2021 Potassium monitoring Potassium monit [facility] [employer] Work Phone: Start: 08-05-2021 Creatinine measurement Creatinine mo [facility] [employer] Work Phone: Start: 08-05-2021 Potassium monitoring Potassium monit [facility] [place] [facility] Work Phone: Start: 02-24-2021 Creatinine measurement Creatinine mo [place] Start: 02-24-2021 Lipid panel Lipid screen [place], [place] Start: 02-24-2021 Potassium monitoring Potassium monit [place] Start: 12-09-2020 Influenza vaccination [facility] [employer] Work Phone: Start: 10-17-2020 Creatinine measurement Creatinine mo [facility] [place] Start: 10-17-2020 Lipid panel Lipid screen [facility] [place] Start: 10-17-2020 Potassium monitoring Potassium monit [place] Start: 04-22-2020 Creatinine measurement Creatinine mo nitoring [place] Start: 04-22-2020 Lipid panel Lipid screen [place] Start: 04-22-2020 Potassium monitoring Potassium monit [place] Start: 12-27-2019 Creatinine monitoring Creatinine mon [place] Start: 12-27-2019 Lipid screen Lipid screen [place] Start: 12-27-2019 Potassium monitoring Potassium monit [place] Start: 12-10-2019 Influenza vaccination Flu vaccine (# 1) [place] Start: 07-18-2019 Creatinine monitoring Creatinine mon [place] Start: 07-18-2019 Potassium monitoring Potassium monit [place] Start: 12-09-2018 Influenza vaccination Flu vaccine (# 1) [place] Start: 09-30-2018 Annual Wellness Visi t (AWV) Annual Wellness Visit (AWV) [place] Start: 12-30-2004 DEXA (modify frequen cy per FRAX score) DEXA (modify frequency per FRAX score) [place] Start: 12-30-2004 Pneumococcal 65+ yea rs Vaccine (1 - PCV) Pneumococcal 65+ years Vaccine (1 - PCV) [facility] Start: 12-30-2004 Pneumococcal 65+ yea rs Vaccine (1 of 1 - PPSV23) Pneumococcal 65+ years Vaccine (1 of 1 - PPSV23) [place] Start: 12-30-2004 Pneumococcal 65+ yea rs Vaccine (1 of 2 - PCV13) Pneumococcal 65+ years Vaccine (1 of 2 - PCV13) [place] Start: 12-30-1994 Screening for osteoporosis DEXA (modify frequency per FRAX score) [facility] Start: 12-30-1989 Shingles Vaccine (1 of 2) Shingles Vaccine (1 of 2) [facility] Start: 12-30-1958 DTaP/Tdap/Td vaccine (1 - Tdap) DTaP/Tdap/Td vaccine (1 - Tdap) [facility] Start: 1955 COVID-19 Vaccine (1 of 2) COVID-19 Vaccine (1 of 2) [facility] [place] Start: 1955 COVID-19 Vaccine (1) COVID-19 Vaccin e (1) [employer] Phone: Start: 1951 COVID-19 Vaccine (1) COVID-19 Vaccin e (1) [employer] Phone: Start: 1951 Depression Screen Depression Screen [facility] [employer] Start: 12-30-1950 DTaP/Tdap/Td vaccine (1 - Tdap) DTaP/Tdap/Td vaccine (1 - Tdap) [employer] Phone: Start: 12-30-1944 COVID-19 Vaccine (1) COVID-19 Vaccin e (1) [facility] [employer] Start: 1939 Annual Wellness Visi t (AWV) Annual Wellness Visit (AWV) [facility] End: 08-06-2020 Basic metabolic 2000 panel - Serum or Plasma Basic Metabolic Panel Lab Routine Tomorrow AM for 1 Occurrences starting 08/06/2020 until 08/06/2020 [employer] Phone: Comment on above: Tomorrow AM for 1 Oc currences starting 08/06/2020 until 08/06/2020 End: 08-06-2020 CBC panel - Blood by Automated count CBC Lab Routine Tomorrow AM for 1 Occurrences starting 08/06/2020 until 08/06/2020 [employer] Phone: Comment on above: Tomorrow AM for 1 Oc currences starting 08/06/2020 until 08/06/2020 Culture, Blood [facility] [employer] Phone: End: 02-12-2019 Lyme Ab Lyme Ab Lab Routine Once for 1 Occurrences starting 02/12/2019 until 02/12/2019 [place] Comment on above: Once for 1 Occurrenc es starting 02/12/2019 until 02/12/2019 Lyme Ab Lyme Ab Lab Rout ine 02/12/2019 12:32 PM KAR Demarco Oxygen therapy [[facility] Data Set] [facility] [employer] Work Phone: Comment on above: Daily until disconti nued starting 08/04/2020 Daily until disconti nued starting 10/19/2020 Vitamin B12 & Folate Vitamin B12 & Folate Lab Routine 02/12/2019 12:32 PM KAR Demarco Payers Date Payer Category Payer Medicare MEDICARE MEDICAR E PART A AND B xxxxxxxxxxx 2015-Present [phone] [address] [place] [id number] xxxxxxxxxxx [id number] 2015 Medicare MEDICARE MEDICAR E PART A AND B [id number] 2015-Present [phone] [id number] [place] [address] [id number] 2015 Medicare MEDICARE MEDICAR E PART A AND B [id number] 2015-Present [phone] [address] [place] [address] [id number] 1959 Medicare [id number] 1940 Unknown [id number] 1940 Unknown [id number] 1940 Unknown [id number] 1940 Unknown [id number] 1940 Unknown [id number] 1939 Unknown [id number] 1940 Unknown [id number] Social History Date Type Detail Facility Start: 04-14-2015 End: 12-19-2017 Tobacco smoking status NHIS Former smoker [place] History of tobacco use Cigarette Smoker [place] Start: 04-14-2015 End: 12-19-2017 Cigarettes smoked current (pack per day) - Reported [place] Start: 12-19-2017 Alcohol intake No [place] Start: 11-25-2015 Tobacco Comment QUIT 1997 [place], [place] Start: 01-02-2017 Alcohol Comment very occasional [place], [place] Start: 1940 Sex Assigned At Not on file [place], [place] Start: 04-14-2015 End: 12-19-2017 Tobacco use and exposure Never used [place] Start: 12-19-2017 End: 10-19-2020 Alcohol intake Current non-drinker of alcohol (finding) [facility] [employer] Work Phone: Exposure to SARS-CoV -2 (event) Not sure [facility] History of Present illness Narrative 10-20-2020 Dahiana Kilgore RN - 10/20/2020 10:06 PM Dahiana Linn RN - 10/20/2020 9:00 PM Dahiana Linn RN - 10/20/2020 8:40 PM Yaquelin Bennett RN - 10/20/2020 8:35 PM EDT Note Date & Type Note Facility 10-20-2020 History of Present illness Narrative Patient's family arrived and process description writer bagged up her personal items. AMA paperwork was signed by patient's POA. [facility] took patient down via wheelchair. [facility] educated patient and family about home safety. Patient is refusing to take all medications. [facility] checked the locked cupboard for patient's personal items and gave her the bag of her clothes. Patient did not arrive in shoes. [facility] also called preparation supervisor freezing to update her. Patient is refusing to sign AMA paperwork. [facility] removed patient left AC IV at this time. [facility] called and spoke with Miracle, patient's POA. Miracle states she will pick her up. [facility] passed phone to patient so she could speak with her daughter. Patient insisted that she would start walking home even after speaking with her daughter. Security remains in the room with patient. Dr. Cerda returned the call. [facility] updated him on the patient and the situation. Dr. Cerda states that can sign out AMA and to make sure she gets a ride home. [facility] will call patient's POA. Security at bedside with patient at this time. Patient has agreed to sit in chair but is still persistent on walking home at this time if daughter does not come and steel pickler patient. Security to remain at bedside. [facility] has been in room with patient while [...] sit down on the bed or chair. [facility] standing next to patient to ensure patient [...] in room phone multiple times of which process description writer handed patient the phone. Patient accused daughter of lying to her when daughter attempted to explain that patient was in the hospital and why she was brought in. Patient hung up on daughter multiple times even after daughter calling back multiple times. [facility] continued to request for patient to sit down for patient's safety of which patient got verbally aggressive with process description writer. [facility] to continue to be in room with patient til security arrives. [facility] called security to sit with patient. Patient is verbally aggressive, swearing at staff. She states that she will walk home with or without her shoes while trying to shove past nursing staff. Patient is walking around the room and searching for her shoes and personal items. Patient is agitated and removed her IV. [facility] was alerted when her bed alarm went off. [facility] and second nurse cleaned her up and got her a new gown. Patient was confused and would not believe that she was in the hospital. [facility] will call Dr. Cerda for an update and orders. Patient got up from the bed without using her call light. [facility] responded to the bed alarm. When asked what she was doing, patient responded I'm walking out of here. [facility] reminded patient that she was in the hospital and would not be able to leave during the night. Patient complied with this and got back in bed. Bed alarm was reset and patient was educated on using the call light again. Will continue to monitor and assess. Pt. Offered assistance with bathing, pt. Declines. Physical Therapy Facility/Department: [facility] Daily Treatment Note NAME: Lilliana Patel : 1940 Date of Service: 10/20/2020 Discharge Recommendations: Continue to assess pending progress, Subacute/Penitentiary Facility, Home with Home health PT Assessment [...] will perform transfers and bed mobility with [place] Short term goal 3: Patient will tolerate [...] Time In 1120 Time Out [address] [place] [address] Met with Patient this a.m. and spoke with daughter, via telephone conversation, re: Patient discharge plans. Patient is an 79 year old , white female, admitted with a diagnosis of Inability to Walk. Patient has a secondary diagnosis of dementia noted. 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 [facility] OK with daughter as well. Patient lives alone in [place]. She uses a walker, cane, wheelchair, shower [...] assistance with this expense. Referral made to [facility] this a.m. Telephone voicemail message left for their admissions gate attendant as well. Patient remains a 'Full Code' status and does not have medical directives currently on file. No further discharge planning needs are identified by Patient or her daughter at this point. CABINET BUILDER to assist with discharge placement as appropriate [...] loss Fluid Accumulation: 1 - Mild Extremities Mines Inspector Strength: Not Performed Estimated Daily Nutrient Needs: Energy (kcal): 7200-5867 (15-18); Weight Used for Energy Requirements: Current Protein (g): 54-63 (1.2-1.4); Weight Used for Protein Requirements: [place] Fluid (ml/day): 1300+; Method Used for Fluid [...] 1.6 oz (73.5 kg) (08/04 encounter) [place] Body Weight: 95 lbs; % [place] Body Weight 166.9 % BMI: 32 BMI [...] No discharge needs at this time Contact: [id number] Images from the original note were not included. [facility] Herbal Suspension To avoid potential drug interactions with herbal and nutritional supplements, it is the policy of [facility] to suspend all orders for these products at the time of admission. Per hospital policy the following herbal/nutritional supplements were suspended during the hospital stay: Fish oil Thank you, Melina Santos RPH, 10/20/2020, 7:26 AM [facility] to bedside, pt activated bed alarm. Upon [...] everyone is on board to send to [facility] facility except one of the other daughter in laws. Stated she is in denial. They would like to at least see rehab options. Navigator mostly completed. Medications list unable to completed due to patient unaware of medications. Daughter in law stated she would be back in the am. Will need completed. Bed alarm on. documented in this encounter [employer] Phone: History of Present illness Narrative 08-05-2020 Daniela Duggan OT - 08/05/2020 3:23 PM Jose Rai - 08/05/2020 3:20 PM Darlyn Copeland MD - 08/05/2020 1:[address], LD - 08/05/2020 10:43 AM EDT Note Date & Type Note Facility 08-05-2020 History of Present illness Narrative [facility] OCCUPATIONAL THERAPY MISSED TREATMENT NOTE [facility] NEUROSCIENCES 4A 4A-19/019-A Date: 08/05/2020 Patient Name: Lilliana Patel CSN: [id number] : 1940 (79 y.o.) Gender: female REASON FOR MISSED TREATMENT: Upon 1st attempt, pt was sound asleep as she was given haldol and ativan early this morning, upon 2nd attempt, pt became very agitated refusing participation in OT. Will check back later as time allows. [facility] INPATIENT PHYSICAL THERAPY DAILY NOTE [facility] 4A - 4A-19/019-A Time In: 1451 Time Out: 1515 Timed Code Treatment Minutes: 24 Minutes Minutes: 24 Date: 08/05/2020 Patient Name: Lilliana Patel, Gender: female : 1940 (79 y.o.) Referring Practitioner: Jack Mensah MD Diagnosis: AMS (altered mental status) Additional Pertinent Hx: Per H&P 79-year-old female patient who is a direct admission from [facility] ED where she presented with [...] Ambulation Assistance: Independent Transfer Assistance: Independent Active Asphalt Surface Heater Operator: No Additional Comments: pt mod I [...] Patel Unit/Bed:4A-19/019-A Date of : 1940 Acct: [id number] PCP: Aye Nevarez DO Date of Admission: [...] patient who is a direct admission from [facility] ED where she presented with [...] questions) Estimated Daily Nutrient Needs: Energy (kcal): 8364-0281 kcals (15-18 kcals/kg/day); Weight Used for Energy Requirements: Current(74 kg 08/04/20) Protein (g): 54-90 grams (1.2-2 grams/kg IBW/day); Weight Used for Protein Requirements: [place](45 kg (adjusted IBW)) Nutrition Related Findings: Pt [...] to state. Per EMR: 08/29/18: 225#) [place] Body Weight: 95 lbs; BMI: 32.7 Adjusted [...] wants us to leave her alone. 255- [employer] left unit after patient safely back into bed. This nurse attempted to place new IV catheter as the previous on had been pulled. She attempted to swing at staff still remaining in the room. Patient received medication to help calm her down. Family called with no answer. [facility] INPATIENT PHYSICAL THERAPY EVALUATION [facility] 4A - 4A-19/019-A Time In: 1424 Time Out: 1449 Timed Code Treatment Minutes: 15 Minutes Minutes: 25 Date: 08/04/2020 Patient Name: Lilliana Patel, Gender: female : 1940 (79 y.o.) Referring Practitioner: Jack Mensah MD Diagnosis: AMS (altered mental status) Additional Pertinent Hx: Per H&P 79-year-old female patient who is a direct admission from [facility] ED where she presented with [...] Ambulation Assistance: Independent Transfer Assistance: Independent Active Asphalt Surface Heater Operator: No Additional Comments: pt mod I [...] Measures: Completed Dynamic Gait Total Score: 15 AM-[facility] Inpatient Mobility Raw Score : 18 AM-[facility] Inpatient T-Scale Score : 43.63 ASSESSMENT: Activity [...] mod I for safe enter/exit of home sewing machine bobbin winder goals Time Frame for sewing machine bobbin winder goals : NA due to short ELOS Following session, patient left in safe position with all fall risk precautions in place. Twan Escobedo PT, DPT [id number] Pt's daughter, Margaret called for a pt update and plan of care. HIPPA code provided. All concerns and questions were addressed. This RN contacted Dr. Mensah with the hospitalist team via [employer] message about pt has requested to go home. This RN have tried to explain to her that she needs to have the MRI done and needs to see Dr. Verdugo. Pt has become agreeable for now but she has informed this RN she does not want to be sent to a [facility]. Patient admitted to 4A Room 19 via [...] declines family notification. documented in this encounter [employer] Phone: Clinical Note 08-04-2020 Note Date & [...] [facility] Clinical Note 08-04-2020 Note Date & Type [...] The brainstem and pituitary gland are normal. [employer] Phone: Evaluation note Note Date & Type Note Facility Evaluation note Diagnosis Seizure disorder (HCC)- Primary Unspecified epilepsy without mention of intractable epilepsy AMS (altered mental status) Essential hypertension Unspecified essential hypertension Bilateral carotid bruits TSH elevation Other abnormal blood chemistry documented in this encounter [employer] Phone: Evaluation note Note Date & Type Note Facility Evaluation note Diagnosis Inability to walk- Primary Difficulty in walking Generalized weakness Other malaise and fatigue Mild dehydration Dehydration Acute cystitis without hematuria Acute cystitis Essential hypertension Unspecified essential hypertension Dehydration documented in this encounter [employer] Phone: Hospital Discharge instructions Attachments Note Date & Type Note Facility Hospital Discharge instructions The following attachments cannot be sent through Care Everywhere.Dementia: General Info (Bulgarian)documented in this encounter [employer] Phone: Reason for Referral Status Reason Specialty Diagnoses / Procedures Referre d By Contact Referred To Contact [facility] Diagnoses Lewy body dementia without behavioral disturbance (HCC) Procedures MRI BRAIN WO CONTRAST Shubham Deshpande [address] [place] [address] Status Reason Specialty Diagnoses / Procedures Referred By Contact Referred To Contact Closed Vascular Lab Diagnoses Pain of right upper arm Swollen vein Procedures VL DUP UPPER EXTREMITY VENOUS RIGHT RoqueAye stanley, DO [address] [place] [address] [facility] Vascular Lab [address] [place] [address] Assessments Diagnosis Lewy body dementia without behavioral disturbance (HCC) Dementia with Lewy bodies Diagnosis Pain of right upper arm Pain in limb Swollen vein Advance Directives No Advanced Directives Records FoundDocuments on File Type Date Recorded Patient Cyber Security Instructor Expl anation Advance Directives and Living Will Power of Ecd Latest Code Status on File Code Status Date Activated Date Inactivated Comments Full Code 12/02/2015 1:49 PM 12/02/2015 5:12 PM Documents on File Type Date Recorded Patient Cyber Security Instructor Expl anation Advance Directives and Living Will Power of Ecd Latest Code Status on File Code Status Date Activated Date Inactivated Comments Full Code 12/02/2015 1:49 PM 12/02/2015 5:12 PM Documents on File Type Date Recorded Patient Cyber Security Instructor Expl anation ACP-Advance Directive ACP-Power of Ecd Documents on File Type Date Recorded Patient Cyber Security Instructor Expl anation ACP-Advance Directive ACP-Power of Ecd Latest Code Status on File Code Status Date Activated Date Inactivated Comments Full Code 08/04/2020 3:05 AM Full Code 12/02/2015 1:49 PM 12/02/2015 5:12 PM Latest Code Status on File Code Status Date Activated Date Inactivated Comments Full Code 10/19/2020 10:31 PM Full Code 08/04/2020 3:05 AM 08/05/2020 7:26 PM Healthcare Agents on File Name Relationship Healthcare Agent [facility] Communication Margaret Salcedo Child Primary Decision Maker Latest Code Status on File Code Status Date Activated Date Inactivated Comments Full Code 10/19/2020 10:31 PM 10/21/2020 12:19 AM Healthcare Agents on File Name Relationship Healthcare Agent [facility] p Communication Margaret Salcedo Child Primary Decision [...] BRAIN WO CTRST Shubham Deshpande [address] [place] [address] [facility] [address] [place] [address] Status Reason Specialty Diagnoses / Procedures Referred By Contact Referred To Contact Closed Vascular Lab Diagnoses Pain of right upper arm Swollen vein Procedures VL DUP UPPER EXTREMITY VENOUS RIGHT Aye Nevarez, DO [address] [place] [address] [facility] [address] [place] [address] Reason Comments Status Reason Specialty Diagnoses / Procedures Referre d By Contact Referred To Contact Diagnoses AMS (altered mental status) Altered Mental status Darien Ferrara MD [address] [place] [address] [facility] Reason Comments Fatigue patient started feel ing weak a couple days ago Status Reason Specialty Diagnoses / Procedures Referre d By Contact Referred To Contact Diagnoses Inability to walk Casandra Cerda MD [address] [place] [address] [facility] Ordered Prescriptions (unrec ognized section and content) Prescription Sig Dispensed Refills Start Date End Da te QUEtiapine (SEROQUEL) 25 MG tablet Take 1 tablet by mouth nightly 60 tablet 3 08/05/2020 INFORMATION SOURCE (unrecogn ized section and content) DATE CREATED AUTHOR 08/12/2020 [facility] DATE CREATED AUTHOR AUTHOR'S ORGANIZ ATION 09/24/2021 [facility] DATE CREATED AUTHOR AUTHOR'S ORGANIZ ATION 07/20/2022 [facility] DATE CREATED AUTHOR AUTHOR'S ORGANIZ ATION 05/14/2023 [facility] Scheduled Active and Recently Administ ered Medications [...]
Care Teams (unrecognized sec tion and content) Rail Assembler Relationship Specialty Start Date End Date Aye Nevarez, DO [address] [place] [address] PCP - General 01/02/12 FOR RECORDS PERTAINING [...] BE BASED ON THE PRIMARY CLINICAL RECORDS. [facility]. provides no warranty or guarantee of the accuracy or completeness of information in this document.
--- NOTE | 2023-10-12 07:02 | XR_ITS ---
[facility] [place] [id number] Patient Name: JARROD CORTEZ MRN: [id number] date: 1940 Sex: F Assigned Patient Location: ED.MAIN Current Patient Location: ED.MAIN Accession/Order Number: [id number] Exam Date: 10/12/2023 07:19 Report Date: 10/12/2023 07:59 At the request of: SHREYA EKLSEY Procedure: XR hip LT 2V w/ pelvis PROCEDURE: XR hip LT 2V w/ pelvis HISTORY: fall COMPARISON: None. FINDINGS: BONES:Degenerative changes of the hip joints bilaterally and lumbar spine. No fracture or dislocation. SOFT TISSUES:No visible soft tissue swelling. EFFUSION:None visible. OTHER: Negative. XR/XR hip LT 2V w/ pelvis IMPRESSION: 1. No acute bone abnormality. 2. Moderate degenerative changes of the hip joints. Electronically authenticated by: ABE CARR Date: 10/12/2023 07:59
--- NOTE | 2023-10-12 07:40 | ED_ITS ---
HPI HPI - Fall General Chief Complaint: Fall Stated Complaint: FALL Time Seen by Provider: 10/12/23 07:02 Source: patient, family, caregiver and EMR Mode of arrival: ambulance Limitations: altered mental status and physical limitation History of Present Illness HPI Narrative: Patient here from a care facility with a witnessed fall. She has severe progressive dementia. She has bruising from a previous event. The family is here with her and they are having challenges providing 24-hour supervision. She is DNR CC. She is really not aware of the circumstances. We know her here from previous visits. There is no known injury to her head or neck area. They sent her here just make sure she does not have a hip fracture. Related Data Home Medications ?Medication ?Instructions ?Recorded ?Confirmed hyoscyamine sulfate 0.125 mg 0.125 mg PO Q4H PRN secretions 09/19/22 10/07/23 tablet (Levsin) ibuprofen 600 mg tablet 400 mg PO Q12H pain 09/19/22 10/07/23 levetiracetam 500 mg tablet 500 mg PO Q12H 09/19/22 10/07/23 (Keppra) loperamide 2 mg capsule 2 mg PO Q12H PRN loose stool 06/25/23 10/07/23 lorazepam 0.5 mg tablet (Ativan) 0.5 mg PO Q12H PRN agitation 07/11/23 10/07/23 bisacodyl 10 mg rectal suppository 10 mg ME DAILY PRN constipation 10/07/23 10/07/23 (Dulcolax (bisacodyl)) lorazepam 2 mg tablet 2 mg PO Q15M PRN seizures 10/07/23 10/07/23 morphine concentrate 100 mg/5 mL 5 mg sublingual Q1H PRN pain 10/07/23 10/07/23 (20 mg/mL) oral solution promethazine 25 mg tablet 25 mg PO Q6H PRN nausea and 10/07/23 10/07/23 vomiting Allergies Allergy/AdvReac Type Severity Reaction Status Date / Time No Known Drug Allergies Allergy Verified 10/12/23 06:54 Opioid HPI Opioid Management Most Recent Pain and Opioid Data: Last Pain Scale 5 09/29/23 12:52 Last Pain Intensity 0 06/26/23 11:28 Last ORT Total Score 0 07/11/23 18:52 Last ORT Risk Category Low Risk 07/11/23 18:52 PFSH PFS Medical History (Updated 10/12/23 @ 07:43 by Nirav Arevalo MD) Pneumonia ?J18.9 - Pneumonia, unspecified organism (ICD-10) Stage 3a chronic kidney disease (CKD) ?N18.31 - Chronic kidney disease, stage 3a (ICD-10) Seizure disorder ?G40.909 - Epilepsy, unspecified, not intractable, without status epilepticus (ICD-10) Dementia ?F03.90 - Unspecified dementia, unspecified severity, without behavioral disturbance, psychotic disturbance, mood disturbance, and anxiety (ICD-10) Hypoxia ?R09.02 - Hypoxemia (ICD-10) COVID ?U07.1 - COVID-19 (ICD-10) Abscess ?L02.91 - Cutaneous abscess, unspecified (ICD-10) Contusion of hip ?S70.00XA - Contusion of unspecified hip, initial encounter (ICD-10) Fall ?W19.XXXA - Unspecified fall, initial encounter (ICD-10) Hypothyroidism ?E03.9 - Hypothyroidism, unspecified (ICD-10) Syncope due to orthostatic hypotension ?I95.1 - Orthostatic hypotension (ICD-10) Acute dehydration ?E86.0 - Dehydration (ICD-10) Schizophrenia ?F20.9 - Schizophrenia, unspecified (ICD-10) Depression ?F32.A - Depression, unspecified (ICD-10) Social History (Updated 07/11/23 @ 19:07 by Daisy Rock LPN) Within the past year, how often did you have a drink containing alcohol: never Within the past year, how often did you have six or more drinks on one occasion: never Score interpretation: A score less than 3 is consistent with normal alcohol consumption. Smoking status: Former smoker Second hand tobacco smoke exposure: No Non-prescribed substance use: denies use Previous occupational history: retired Highest level of school completed/degree received: high school graduate Are you now , , , , never or living with a partner: don't know In a typical week, how many times do you talk on the telephone with family, friends, or neighbors: twice per week How often do you get together with friends or relatives: twice per week How often do you attend episcopalian or jainism services: never Do you belong to any clubs or organizations such as episcopalian groups unions, fraternal or athletic groups, or school groups: no Total score: 1 Score interpretation: A score of less than or equal to 1 indicates the most socially isolated. Little interest or pleasure in doing things: not at all Feeling down, depressed, or hopeless: not at all Feel stressed/tense/nervous/anxious/difficulty sleeping: not at all Do you think of yourself as: straight/heterosexual Gender Identity: female Exam Narrative Exam Narrative: Vitals: As are stable no respiratory distress she is awake and alert follows simple commands. She is able to wiggle her toes and move her legs without any pain grimacing or discomfort. Examination extremities shows the old resolving bruise in her left flank area. There is no pain over her pelvis area when I rocked the pelvis. Also passive range of motion of her hips and knees bilaterally is completely normal does not result in any discomfort. There is no external rotation. Pulses to the extremities is normal. Ribs are nontender she has spontaneous movement of her upper limbs with no discomfort to palpation of the bony landmarks. Head and neck structures are atraumatic. Constitutional Vital Signs, click to edit/add: Last Vital Signs Temp 98.1 F 10/12/23 06:51 Pulse 71 10/12/23 06:51 Resp 10/12/23 06:51 BP 122/52 10/12/23 06:51 Pulse Ox 99 10/12/23 06:51 O2 Del Method Room Air 10/12/23 06:51 Course Vital Signs Vital signs: Vital Signs Temperature 98.1 F 10/12/23 06:51 Pulse Rate 71 10/12/23 06:51 Respiratory Rate 10/12/23 06:51 Blood Pressure 122/52 10/12/23 06:51 Pulse Oximetry 99 10/12/23 06:51 Oxygen Delivery Method Room Air 10/12/23 06:51 Temperature 98.1 F 10/12/23 06:51 Pulse Rate 71 10/12/23 06:51 Respiratory Rate 10/12/23 06:51 Blood Pressure 122/52 10/12/23 06:51 Pulse Oximetry 99 10/12/23 06:51 Oxygen Delivery Method Room Air 10/12/23 06:51 MDM - Fall MDM Narrative Medical decision making narrative: Pelvis x-rays were reviewed by myself are normal with no acute fracture. Discharge Plan Discharge Stand Alone Forms: Portal Instructions Chief Complaint: Fall Clinical Impression: Fall, Contusion of hip, left Patient Disposition: Home, Self-Care Time of Disposition Decision: 07:43 Prescriptions / Home Meds: No Action ibuprofen 600 mg tablet 400 mg PO Q12H levetiracetam [Keppra] 500 mg tablet 500 mg PO Q12H hyoscyamine sulfate [Levsin] 0.125 mg tablet 0.125 mg PO Q4H PRN (Reason: secretions) loperamide 2 mg capsule 2 mg PO Q12H PRN (Reason: loose stool) Rx Instructions: 2 mg 1st dose then 1 tablet BID as needed no more then 4tablets daily morphine concentrate 100 mg/5 mL (20 mg/mL) solution 5 mg sublingual Q1H PRN (Reason: pain) bisacodyl [Dulcolax (bisacodyl)] 10 mg suppository 10 mg ME DAILY PRN (Reason: constipation) promethazine 25 mg tablet 25 mg PO Q6H PRN (Reason: nausea and vomiting) lorazepam 2 mg tablet 2 mg PO Q15M PRN (Reason: seizures) lorazepam [Ativan] 0.5 mg tablet 0.5 mg PO Q12H PRN (Reason: agitation) Print Language: Korean Additional Instructions: Resume previous care Referrals: Physician,Non-Staff, MD [Primary Care Provider] - 1 week
== END 2023-10-12 08:05 | disposition home or self-care (01) ==
PROVIDERS: Emergency Provider Emergency Medicine Emergency Medical Services
DX: S70.02XA Contusion of left hip, initial encounter (principal); W19.XXXA Unspecified fall, initial encounter; Z66 Do not resuscitate; Z87.891 Personal history of nicotine dependence
CPT/HCPCS: 73502; 99283